=== PATIENT | female | born 1940 | race Caucasian/White ===

== ENCOUNTER 2017-02-22 06:51 | Day surgery (SDC) | payer OTHER ==
[2017-01-04 08:30] VITALS: BMI 23.3
[2017-02-22 07:16] VITALS: TEMP 97
[2017-02-22] MEDS ORDERED: Lidocaine Hydrochloride 5 ML INJ ONE (08:07)
[2017-02-22] MEDS ORDERED: Propofol 10 mg/ml Inj (20 ML) ONE (08:07)
[2017-02-22] MEDS ORDERED: Etomidate 20 mg/10ml Inj IV ONE (08:07)
--- NOTE | 2017-02-22 08:09 | CP.SDSHP ---
Same Day Surgery H & P - History Proposed Procedure: COLONSCOPY Pre-Op Diagnosis: SEE NOTES - Previous Medical/Surgical History Cardiac: Hypertension, ASHD/CAD Endocrine/Metabolic: Diabetes, Other Misc: Other Pain: 4.Moderate Pain - Allergies Allergies: Allergies No Known Allergies Allergy (Verified 02/22/17 07:12) - Physical Exam General Appearance: N Vital Signs: Vital Signs 02/22/17 02/22/17 02/22/17 07:14 07:34 07:58 Temperature 97.0 F L 97.0 F L 97.0 F L Pulse Rate 80 80 80 Respiratory 20 20 20 Rate Blood Pressure 158/76 H 158/76 H 158/76 H O2 Sat by Pulse 98 98 98 Oximetry 02/22/17 08:05 Temperature 97.0 F L Pulse Rate 80 Respiratory 20 Rate Blood Pressure 158/76 H O2 Sat by Pulse 98 Oximetry Mental Status: Alert & Oriented x3 Neuro: WNL Heart: Other Lungs: WNL GI: WNL - {Optional Preform as Required} Breast: WNL Abdomen: Other Rectal: Other Integument: WNL : WNL Ortho: Other ENT: WNL - Impression Pt. Evaluated Today:Candidate for Anesthesia & Procedure: Yes - Date & Time Time: 08:09 Short Stay Discharge - Short Stay Discharge Admitting Diagnosis/Reason for Visit: RECTAL BLEEDING Disposition: HOME/ ROUTINE
[2017-02-22] MEDS ORDERED: Belladonna-Phenobarbital PO STA (08:10)
[2017-02-22] MEDS ORDERED: Phytonadione 10 mg/ml Inj (Adult) SC STA (08:20)
[2017-02-22 08:56] VITALS: O2SAT 100
[2017-02-22 10:16] VITALS: RESP 20
[2017-02-22 14:03] VITALS: BP 144/64; PULSE 89
== END 2017-02-22 09:40 | disposition home or self-care (01) ==
LOC: C.ENDO 06:51
PROVIDERS: ATTEND Specialist
DX: D12.0 Benign neoplasm of cecum (principal); K63.89 Other specified diseases of intestine; K64.4 Residual hemorrhoidal skin tags; K64.8 Other hemorrhoids; K62.5 Hemorrhage of anus and rectum
CPT/HCPCS: 45380; 82948; 88305; J2704; J3430

== ENCOUNTER 2017-06-26 02:08 | Inpatient (IN) | payer OTHER ==
[2017-06-26 02:08] VITALS: BMI 23.3
[2017-06-26] MEDS ORDERED: Albuterol-Ipratrop 3 mg / 0.5 (3 ml) UD ONE (02:21)
[2017-06-26] MEDS ORDERED: Sodium Chloride 0.9% 1,000 ML IV ONE (02:21)
--- NOTE | 2017-06-26 02:24 | C.PDOC ---
History Of Present Illness Patient BIBA for evaluation of chest pain. As per EMS, patient was having chest pain, had syncopal episode when BLS arrived and became diaphoretic and bradycardic. ALS arrived, patient had episode of vomiting, intubated for airway protection (given Versed, Ketamine, Succniylcholine). PMHx of DM, CAD, HTN. Time Seen by Provider: 06/26/17 02:19 Chief Complaint (Nursing): Chest Pain History Per: EMS History/Exam Limitations: clinical condition Onset/Duration Of Symptoms: Unknown Current Symptoms Are (Timing): Still Present Past Medical History Reviewed: Historical Data, Nursing Documentation, Vital Signs Vital Signs: Last Vital Signs Temp 98.1 F 07/01/17 12:00 Pulse 80 07/01/17 17:00 Resp 19 07/01/17 17:00 BP 148/70 07/01/17 16:37 Pulse Ox 99 07/01/17 17:00 - Medical History PMH: Arthritis, HTN, Hypercholesterolemia, Chronic Kidney Disease Family History: States: Other Other Family History: noncontributory Review Of Systems Review Of Systems: ROS cannot be obtained secondary to pt's inabilty to answer questions. Physical Exam - Physical Exam Appears: Non-toxic Skin: Diaphoretic Eye(s): bilateral: Normal Inspection Oral Mucosa: Moist, Other (ET tube in place) Cardiovascular: Rhythm Regular (tachycardic ) Respiratory: No Accessory Muscle Use, Rales (B/L), Rhonchi (B/L), Wheezing ( mild expiratory ), Other (breath sounds equal B/L) Gastrointestinal/Abdominal: Normal Exam, Bowel Sounds, Soft, No Tenderness, Other (obese) Rectal: Rectal Tone, Heme Positive, No Hemorrhoids, No Mass, No Tenderness Extremity: No Pedal Edema, No Calf Tenderness ED Course And Treatment - Laboratory Results Result Diagrams: 07/01/17 06:08 07/01/17 06:10 ECG: Interpreted By Me, Viewed By Me (sinus rhythm 96 bpm, normal axis, PACs, ST depressions V4-V6, T wave inversions I, aVL) ECG Interpretation: Abnormal O2 Sat by Pulse Oximetry: 100 (FiO2 100) Pulse Ox Interpretation: Normal - Radiology CXR: Interpreted by Me, Viewed By Me (pulmonary edema, ET tube in place) Progress Note: Blood work, CXR, EKG, UA ordered and reviewed. IV NS bolus given. Fentanyl drip started for IV sedation (intubated). Central line inserted by me in right femoral vein. IV levophed started due to hypotension. Bicarb amp given IV. No asa/anticoagulation given for elevated troponin due to guaiac + stool and severe anemia. Tranfusion of 2 units PRBCs ordered. 3:35am - Discussed patient with franklin Rush with ICU admission. Dr. Saldaña hospitalist covering operations recruiter, also aware. Pending call from Dr. Arshad ( covers Dr. Brittney De La Cruz), will be telecommunications sales representative as well. 3:52am - Dr. Arshad aware of admission to his service + cardio consult. - Physician Consult Information Physician Contacted: Harriett Arshad Central Line Placement - Central Line Placement Indication: Emergent IV Access Central Line Placement: Right: Femoral The Area Was Thoroughly Prepared With: Chlorhexidine Area Was Locally Anesthetized With: Lidocaine 1% Procedure: Triple Lumen, Placed Using Standard Seldinger Technique, Catheter Was Sewn Into Place, Sterile Dressing Placed Over Line, Procedure Tolerated Well Critical Care Time - Critical Care Note Total Time (in mins): 45 Documented critical care: time excludes all time spent performing seperately billable procedures. Medical Decision Making Medical Decision Making: differential diagnoses considered: MD/ACS, GI bleed - diverticulosis/colon CA/ hemorrhoids/PUD/gastritis/AVM/colitis, CHF exacerbation/pulmonary edema, sepsis , UTI, pneumonia, Disposition - Disposition Disposition: HOSPITALIZED Disposition Time: 03:32 Condition: CRITICAL - Clinical Impression Clinical Impression: Pulmonary edema, Elevated troponin, Anemia, Acidosis, UTI (urinary tract infection), Guaiac positive stools
[2017-06-26 02:28] LABS: ABG MECHANICAL RATE 14; ARTERIAL BLOOD GAS MODE PRVC; ATERIAL BLOOD GAS PEEP 5; VENOUS BLOOD GAS BASE EXCESS -19.1 mmol/L (0.0-2.0); VENOUS BLOOD GAS MODE PRVC; VENOUS BLOOD GAS PCO2 49 mmHg (40-60)
[2017-06-26 02:30] LABS: BASO # 0.2 K/uL (0.0-0.2); BASO % 1.1 % (0.0-2.0); EOS # 0.2 K/uL (0.0-0.7); EOS % 1.1 % (0.0-4.0); HEMATOCRIT 22.9 % (34.0-47.0); LYMPH # 7.8 K/uL (1.0-4.3); LYMPH % 40.2 % (20.0-40.0); MEAN CELL VOLUME 84.5 fL (81.0-99.0); MEAN CORPUSCULAR HGB CONC 28.3 g/dL (33.0-37.0); MEAN PLATELET VOLUME 10.2 fL (7.2-11.7); MONO # 0.6 K/uL (0.0-0.8); MONO % 3.1 % (0.0-10.0); NRBC % 0.2 % (0.0-2.0); RED CELL DISTRIBUTION WIDTH 17.1 % (11.5-14.5); WHITE BLOOD COUNT 19.5 K/uL (4.8-10.8)
[2017-06-26 02:35] LABS: INR 1.1
[2017-06-26 02:37] LABS: POTASSIUM 5.1 mmol/L (3.6-5.2)
[2017-06-26 02:39] LABS: ALB/GLOB RATIO 1.2 (1.0-2.1); BILIRUBIN,TOTAL 0.3 mg/dL (0.2-1.3); CALCIUM 7.6 mg/dl (8.6-10.4); TOTAL PROTEIN 5.9 g/dL (6.3-8.3)
[2017-06-26] MEDS ORDERED: Lidocaine 1% Inj (20ml) ONE (02:52)
[2017-06-26 03:00] LABS: TROPONIN I 0.23 ng/mL (0.00-0.120)
[2017-06-26] MEDS ORDERED: Sodium Bicarbonate (8.4%) 50 Meq Syringe IVP STA (03:33)
[2017-06-26] MEDS ORDERED: Sodium Bicarbonate (8.4%) 50 Meq Syringe ONE (03:43)
[2017-06-26] MEDS ORDERED: (Novolin R) Insulin Human Regular 100 units/ml vial IV ONE (03:45)
[2017-06-26] MEDS ORDERED: (Novolin R) Insulin Human Regular 100 units/ml vial ONE (03:58)
[2017-06-26 03:59] LABS: ABG ALLEN TEST POS; ABG MECHANICAL RATE 14; ARTERIAL BLOOD GAS MODE PRVC; ATERIAL BLOOD GAS PEEP 5; DRAW SITE R RAD
[2017-06-26 04:08] LABS: GRANULAR CAST 19 /lpf (0-1); RBC URINE 5 /hpf (0-3); URINE BACTERIA RARE (<OCC); URINE BILIRUBIN NEGATIVE (NEGATIVE); URINE BLOOD NEGATIVE (NEGATIVE); URINE COLOR Amber (YELLOW); URINE GLUCOSE (UA) 2+ mg/dL (Normal); URINE KETONE NEGATIVE (NEGATIVE); URINE LEUKOCYTE ESTERASE NEG Leu/uL (Negative); URINE PROTEIN 3+ mg/dL (NEGATIVE); URINE UROBILINOGEN NORMAL mg/dL (0.2-1.0); WBC URINE 14 /hpf (0-5)
[2017-06-26] MEDS ORDERED: cefTRIAXone IV 1 gm in Dextros 50 ML IVPB ONE (04:29)
[2017-06-26 08:36] LABS: ABG MECHANICAL RATE 14; ARTERIAL BLOOD GAS MODE PRVC; ATERIAL BLOOD GAS PEEP 5; DRAW SITE RRA
--- NOTE | 2017-06-26 08:46 | RAD ---
HISTORY: intubation COMPARISON: None available. TECHNIQUE: Chest, one view. FINDINGS: Endotracheal tube tip terminates approximately 5.6 cm above the merary. Nasogastric tube extends expected location of the stomach. LUNGS: Moderate interstitial prominence may reflect infection or edema. Please note that chest x-ray has limited sensitivity for the detection of pulmonary masses. PLEURA: No significant pleural effusion identified. No definite pneumothorax . CARDIOVASCULAR: Heart size appears within normal limits. Atherosclerotic calcifications of the aortic knob. OSSEOUS STRUCTURES: Osseous demineralization. Degenerative changes. VISUALIZED UPPER ABDOMEN: Unremarkable. OTHER FINDINGS: None. IMPRESSION: Endotracheal tube tip terminates approximately 5.6 cm above the merary. Nasogastric tube extends expected location of the stomach. Moderate interstitial prominence may reflect infection or edema.
[2017-06-26] MEDS: Piperacill/Tazo 2.25gm in Dex 2.25 GM/50 ML BAG IVPB SCH ×2 (09:47→16:09)
[2017-06-26] MEDS ORDERED: Sodium Chloride 0.9% 500 ML IV ONE (11:47)
[2017-06-26] MEDS: Azithromycin 500 MG in Sodium Chloride 0.9% 250 ML IVPB SCH (12:02)
[2017-06-26 12:45] LABS: POTASSIUM 5.2 mmol/L (3.6-5.2)
[2017-06-26 12:47] LABS: BILIRUBIN,TOTAL 0.7 mg/dL (0.2-1.3)
[2017-06-26 12:48] LABS: ALB/GLOB RATIO 1.1 (1.0-2.1); HEMATOCRIT 28.5 % (34.0-47.0); MEAN CELL VOLUME 84.7 fL (81.0-99.0); MEAN CORPUSCULAR HEMOGLOBIN 26.6 pg (27.0-31.0); MEAN CORPUSCULAR HGB CONC 31.4 g/dL (33.0-37.0); MEAN PLATELET VOLUME 9.6 fL (7.2-11.7); PHOSPHOROUS 3.8 mg/dL (2.5-4.5); RED CELL DISTRIBUTION WIDTH 16.9 % (11.5-14.5); TOTAL PROTEIN 5.4 g/dL (6.3-8.3); WHITE BLOOD COUNT 20.6 K/uL (4.8-10.8)
[2017-06-26 12:49] LABS: MAGNESIUM 1.2 mg/dL (1.6-2.3)
[2017-06-26] MEDS: Magnesium Sulfate 1 gm in D5W 1 GM/100 ML BAG IVPB SCH ×2 (13:45→14:30)
--- NOTE | 2017-06-26 13:53 | CP.PCM.CON ---
History of Present Illness - History of Present Illness History of Present Illness: 77-year-old female with history of coronary artery disease, hypertension who was admitted overnight to intensive care unit after she was intubated in the field for respiratory distress, chest pain, diaphoresis. Patient now intubated on ventilatory support, getting PRBCs for severe anemia Status post EGD and colonoscopy in February of this month complicated by rectal bleeding AND this patient never had follow-up with GI Review of Systems - Review of Systems Systems not reviewed;Unavailable: Intubated Past Patient History - Infectious Disease Hx of Infectious Diseases: None - Past Medical History & Family History Past Medical History?: Yes - Past Social History Smoking Status: Never Smoked - CARDIAC Hx Hypercholesterolemia: Yes Hx Hypertension: Yes - PULMONARY Hx Respiratory Disorders: No - NEUROLOGICAL Hx Neurological Disorder: No - HEENT Hx HEENT Problems: Yes Hx Cataracts: Yes (BIOL) - RENAL Hx Chronic Kidney Disease: Yes - ENDOCRINE/METABOLIC Hx Endocrine Disorders: Yes Hx Diabetes Mellitus Type 2: Yes - HEMATOLOGICAL/ONCOLOGICAL Hx Blood Disorders: No Hx Blood Transfusions: No - INTEGUMENTARY Hx Dermatological Problems: No - MUSCULOSKELETAL/RHEUMATOLOGICAL Hx Falls: No - GASTROINTESTINAL Hx Gastrointestinal Disorders: No - GENITOURINARY/GYNECOLOGICAL Hx Genitourinary Disorders: No - PSYCHIATRIC Hx Substance Use: No - SURGICAL HISTORY Hx Surgeries: Yes Hx Cataract Extraction: Yes (BIOL) - ANESTHESIA Hx Anesthesia: Yes Hx Anesthesia Reactions: No Hx Malignant Hyperthermia: No Meds Allergies/Adverse Reactions: Allergies Allergy/AdvReac Type Severity Reaction Status Date / Time No Known Allergies Allergy Verified 06/26/17 02:25 - Medications Medications: Current Medications Famotidine (Pepcid) 20 mg IVP DAILY [facility] Last Admin: 06/26/17 09:46 Dose: 20 mg Fentanyl Citrate 2,500 mcg/ (Sodium Chloride) 250 mls @ 5.39 mls/hr IV .Q24H [facility]; 0.7 MCG/KG/HR PRN Reason: Protocol Last Titration: 06/26/17 07:00 Dose: 0.99 mcg/kg/hr, 7.7 mls/hr Norepinephrine Bitartrate 4 mg (/ Sodium Chloride) 254 mls @ 15.24 mls/hr IV .[id number] STA; 4 MCG/MIN PRN Reason: Protocol Stop: 06/26/17 19:50 Last Titration: 06/26/17 13:00 Dose: 4.93 mcg/min, 18.8 mls/hr Piperacillin Sod/Tazobactam Sod (Zosyn 2.25 Gm Iv Premix) 2.25 gm in 50 mls @ 100 mls/hr IVPB Q8H [facility] Last Admin: 06/26/17 09:47 Dose: 100 mls/hr Azithromycin 500 mg/ Sodium (Chloride) 250 mls @ 250 mls/hr IVPB DAILY [facility] Last Admin: 06/26/17 12:02 Dose: 250 mls/hr Magnesium Sulfate/Dextrose (Magnesium Sulfate 1 Gm/100 Ml D5w) 1 gm in 100 mls @ 200 mls/hr IVPB Q30M [facility] Stop: 06/26/17 14:29 Last Admin: 06/26/17 13:45 Dose: 200 mls/hr Physical Exam - Head Exam Head Exam: ATRAUMATIC, NORMOCEPHALIC - ENT Exam ENT Exam: Mucous Membranes Moist - Neck Exam Neck exam: Positive for: Normal Inspection - Respiratory Exam Respiratory Exam: Decreased Breath Sounds - Cardiovascular Exam Cardiovascular Exam: REGULAR RHYTHM - GI/Abdominal Exam GI & Abdominal Exam: Normal Bowel Sounds - Extremities Exam Extremities exam: Positive for: normal inspection - Neurological Exam Neurological exam: Altered Results - Vital Signs Recent Vital Signs: Last Vital Signs Temp 98.4 F 06/26/17 10:32 Pulse 82 06/26/17 13:30 Resp 20 06/26/17 13:30 BP 83/47 L 06/26/17 13:05 Pulse Ox 100 06/26/17 13:30 - Labs Result Diagrams: 06/26/17 12:29 06/26/17 12:29 Labs: Laboratory Results - last 24 hr 06/26/17 06/26/17 06/26/17 03:51 03:53 03:55 WBC RBC Hgb Hct MCV MCH MCHC RDW Plt Count MPV Puncture Site R rad pCO2 38 pO2 213 H HCO3 14.8 L ABG pH 7.19 L* ABG Total CO2 15.7 L ABG O2 Saturation 100.5 H ABG Base Excess -13.0 L Jasvir Test Pos ABG Potassium 5.7 H A-a O2 Difference 453.0 Respiratory Index 2.1 Sodium 139.0 Chloride 116.0 H Glucose 283 H Lactate 2.3 H Vent Mode Prvc Mechanical Rate 14 FiO2 100.0 Tidal Volume 500 PEEP 5 Crit Value Called To Dr hernandez Crit Value Called By Darlene varner rt Crit Value Read Back Y Blood Gas Notified Time 400 Potassium Carbon Dioxide Anion Gap BUN Creatinine Est GFR ( Amer) Est GFR (Non-Af Amer) POC Glucose (mg/dL) Random Glucose Calcium Phosphorus Magnesium Total Bilirubin AST ALT Alkaline Phosphatase Total Creatine Kinase CK-MB (Mass) Troponin I, Quant Total Protein Albumin Globulin Albumin/Globulin Ratio Arterial Blood Potassium 5.7 H Urine Color Susan Urine Clarity Hazy Urine pH 5.0 Ur Specific [place] 1.016 Urine Protein 3+ H Urine Glucose (UA) 2+ H Urine Ketones Negative Urine Blood Negative Urine Nitrate Negative Urine Bilirubin Negative Urine Urobilinogen Normal Ur Leukocyte Esterase Neg Urine WBC (Auto) 14 H Urine RBC (Auto) 5 H Ur Squamous Epith Cells 1 Amorphous Sediment Few H Urine Bacteria Rare Granular Casts (Auto) 19 Blood Type Confirm A POSITIVE 06/26/17 06/26/17 06/26/17 07:28 08:33 11:48 WBC RBC Hgb Hct MCV MCH MCHC RDW Plt Count MPV Puncture Site Rra pCO2 42 pO2 182 H HCO3 18.4 L ABG pH 7.25 L ABG Total CO2 19.7 L ABG O2 Saturation 100.0 H ABG Base Excess -8.5 L Jasvir Test Na ABG Potassium 5.9 H A-a O2 Difference 265.0 Respiratory Index 1.5 Sodium 141.0 Chloride 114.0 H Glucose 242 H Lactate 1.1 Vent Mode Prvc Mechanical Rate 14 FiO2 70.0 Tidal Volume 500 PEEP 5 Crit Value Called To Crit Value Called By Crit Value Read Back Blood Gas Notified Time Potassium Carbon Dioxide Anion Gap BUN Creatinine Est GFR ( Amer) Est GFR (Non-Af Amer) POC Glucose (mg/dL) 253 H 267 H Random Glucose Calcium Phosphorus Magnesium Total Bilirubin AST ALT Alkaline Phosphatase Total Creatine Kinase CK-MB (Mass) Troponin I, Quant Total Protein Albumin Globulin Albumin/Globulin Ratio Arterial Blood Potassium 5.9 H Urine Color Urine Clarity Urine pH Ur Specific [place] Urine Protein Urine Glucose (UA) Urine Ketones Urine Blood Urine Nitrate Urine Bilirubin Urine Urobilinogen Ur Leukocyte Esterase Urine WBC (Auto) Urine RBC (Auto) Ur Squamous Epith Cells Amorphous Sediment Urine Bacteria Granular Casts (Auto) Blood Type Confirm 06/26/17 06/26/17 06/26/17 12:29 12:29 12:29 WBC 20.6 H RBC 3.37 L Hgb 8.9 L D Hct 28.5 L MCV 84.7 MCH 26.6 L MCHC 31.4 L RDW 16.9 H Plt Count 188 MPV 9.6 Puncture Site pCO2 pO2 HCO3 ABG pH ABG Total CO2 ABG O2 Saturation ABG Base Excess Jasvir Test ABG Potassium A-a O2 Difference Respiratory Index Sodium 141 Chloride 113 H Glucose Lactate Vent Mode Mechanical Rate FiO2 Tidal Volume PEEP Crit Value Called To Crit Value Called By Crit Value Read Back Blood Gas Notified Time Potassium 5.2 Carbon Dioxide 16 L Anion Gap 17 BUN 31 H Creatinine 2.1 H Est GFR ( Amer) 28 Est GFR (Non-Af Amer) 23 POC Glucose (mg/dL) Random Glucose 214 H Calcium 7.0 L Phosphorus 3.8 Magnesium 1.2 L Total Bilirubin 0.7 AST 47 H ALT 49 Alkaline Phosphatase 56 Total Creatine Kinase 238 H CK-MB (Mass) 7.40 H Troponin I, Quant 3.1100 H* Total Protein 5.4 L Albumin 2.9 L Globulin 2.5 Albumin/Globulin Ratio 1.1 Arterial Blood Potassium Urine Color Urine Clarity Urine pH Ur Specific [place] Urine Protein Urine Glucose (UA) Urine Ketones Urine Blood Urine Nitrate Urine Bilirubin Urine Urobilinogen Ur Leukocyte Esterase Urine WBC (Auto) Urine RBC (Auto) Ur Squamous Epith Cells Amorphous Sediment Urine Bacteria Granular Casts (Auto) Blood Type Confirm Assessment & Plan (1) Acute respiratory failure with hypoxemia Status: Acute Comment: Secondary to pulmonary edema. Rule out non-ST elevation OK. No anticoagulation because of GI bleed. Transfuse packed RBCs. Continue vent support. Echocardiogram (2) Anemia Status: Acute (3) Elevated troponin Status: Acute
--- NOTE | 2017-06-26 15:29 | CP.PCM.HP ---
Present on Admission - Present on Admission Any Indicators Present on Admission: No Past Patient History - Infectious Disease Hx of Infectious Diseases: None - Past Medical History & Family History Past Medical History?: Yes - Past Social History Smoking Status: Never Smoked - CARDIAC Hx Hypercholesterolemia: Yes Hx Hypertension: Yes - PULMONARY Hx Respiratory Disorders: No - NEUROLOGICAL Hx Neurological Disorder: No - HEENT Hx HEENT Problems: Yes Hx Cataracts: Yes (BIOL) - RENAL Hx Chronic Kidney Disease: Yes - ENDOCRINE/METABOLIC Hx Endocrine Disorders: Yes Hx Diabetes Mellitus Type 2: Yes - HEMATOLOGICAL/ONCOLOGICAL Hx Blood Disorders: No Hx Blood Transfusions: No - INTEGUMENTARY Hx Dermatological Problems: No - MUSCULOSKELETAL/RHEUMATOLOGICAL Hx Falls: No - GASTROINTESTINAL Hx Gastrointestinal Disorders: No - GENITOURINARY/GYNECOLOGICAL Hx Genitourinary Disorders: No - PSYCHIATRIC Hx Substance Use: No - SURGICAL HISTORY Hx Surgeries: Yes Hx Cataract Extraction: Yes (BIOL) - ANESTHESIA Hx Anesthesia: Yes Hx Anesthesia Reactions: No Hx Malignant Hyperthermia: No Meds Allergies/Adverse Reactions: Allergies Allergy/AdvReac Type Severity Reaction Status Date / Time No Known Allergies Allergy Verified 06/26/17 02:25 Results - Vital Signs Recent Vital Signs: Last Vital Signs Temp 98.4 F 06/26/17 10:32 Pulse 77 06/26/17 14:39 Resp 20 06/26/17 14:39 BP 102/48 L 06/26/17 14:39 Pulse Ox 99 06/26/17 14:39 - Labs Result Diagrams: 06/26/17 12:29 06/26/17 12:29 Labs: Laboratory Results - last 24 hr 06/26/17 06/26/17 06/26/17 03:51 03:53 03:55 WBC RBC Hgb Hct MCV MCH MCHC RDW Plt Count MPV Puncture Site R rad pCO2 38 pO2 213 H HCO3 14.8 L ABG pH 7.19 L* ABG Total CO2 15.7 L ABG O2 Saturation 100.5 H ABG Base Excess -13.0 L Jasvir Test Pos ABG Potassium 5.7 H A-a O2 Difference 453.0 Respiratory Index 2.1 Sodium 139.0 Chloride 116.0 H Glucose 283 H Lactate 2.3 H Vent Mode Prvc Mechanical Rate 14 FiO2 100.0 Tidal Volume 500 PEEP 5 Crit Value Called To Dr hernandez Crit Value Called By Darlene varner rt Crit Value Read Back Y Blood Gas Notified Time 400 Potassium Carbon Dioxide Anion Gap BUN Creatinine Est GFR ( Amer) Est GFR (Non-Af Amer) POC Glucose (mg/dL) Random Glucose Calcium Phosphorus Magnesium Total Bilirubin AST ALT Alkaline Phosphatase Total Creatine Kinase CK-MB (Mass) Troponin I, Quant Total Protein Albumin Globulin Albumin/Globulin Ratio Arterial Blood Potassium 5.7 H Urine Color Susan Urine Clarity Hazy Urine pH 5.0 Ur Specific [place] 1.016 Urine Protein 3+ H Urine Glucose (UA) 2+ H Urine Ketones Negative Urine Blood Negative Urine Nitrate Negative Urine Bilirubin Negative Urine Urobilinogen Normal Ur Leukocyte Esterase Neg Urine WBC (Auto) 14 H Urine RBC (Auto) 5 H Ur Squamous Epith Cells 1 Amorphous Sediment Few H Urine Bacteria Rare Granular Casts (Auto) 19 Blood Type Confirm A POSITIVE 06/26/17 06/26/17 06/26/17 07:28 08:33 11:48 WBC RBC Hgb Hct MCV MCH MCHC RDW Plt Count MPV Puncture Site Rra pCO2 42 pO2 182 H HCO3 18.4 L ABG pH 7.25 L ABG Total CO2 19.7 L ABG O2 Saturation 100.0 H ABG Base Excess -8.5 L Jasvir Test Na ABG Potassium 5.9 H A-a O2 Difference 265.0 Respiratory Index 1.5 Sodium 141.0 Chloride 114.0 H Glucose 242 H Lactate 1.1 Vent Mode Prvc Mechanical Rate 14 FiO2 70.0 Tidal Volume 500 PEEP 5 Crit Value Called To Crit Value Called By Crit Value Read Back Blood Gas Notified Time Potassium Carbon Dioxide Anion Gap BUN Creatinine Est GFR ( Amer) Est GFR (Non-Af Amer) POC Glucose (mg/dL) 253 H 267 H Random Glucose Calcium Phosphorus Magnesium Total Bilirubin AST ALT Alkaline Phosphatase Total Creatine Kinase CK-MB (Mass) Troponin I, Quant Total Protein Albumin Globulin Albumin/Globulin Ratio Arterial Blood Potassium 5.9 H Urine Color Urine Clarity Urine pH Ur Specific [place] Urine Protein Urine Glucose (UA) Urine Ketones Urine Blood Urine Nitrate Urine Bilirubin Urine Urobilinogen Ur Leukocyte Esterase Urine WBC (Auto) Urine RBC (Auto) Ur Squamous Epith Cells Amorphous Sediment Urine Bacteria Granular Casts (Auto) Blood Type Confirm 06/26/17 06/26/17 06/26/17 12:29 12:29 12:29 WBC 20.6 H RBC 3.37 L Hgb 8.9 L D Hct 28.5 L MCV 84.7 MCH 26.6 L MCHC 31.4 L RDW 16.9 H Plt Count 188 MPV 9.6 Puncture Site pCO2 pO2 HCO3 ABG pH ABG Total CO2 ABG O2 Saturation ABG Base Excess Jasvir Test ABG Potassium A-a O2 Difference Respiratory Index Sodium 141 Chloride 113 H Glucose Lactate Vent Mode Mechanical Rate FiO2 Tidal Volume PEEP Crit Value Called To Crit Value Called By Crit Value Read Back Blood Gas Notified Time Potassium 5.2 Carbon Dioxide 16 L Anion Gap 17 BUN 31 H Creatinine 2.1 H Est GFR ( Amer) 28 Est GFR (Non-Af Amer) 23 POC Glucose (mg/dL) Random Glucose 214 H Calcium 7.0 L Phosphorus 3.8 Magnesium 1.2 L Total Bilirubin 0.7 AST 47 H ALT 49 Alkaline Phosphatase 56 Total Creatine Kinase 238 H CK-MB (Mass) 7.40 H Troponin I, Quant 3.1100 H* Total Protein 5.4 L Albumin 2.9 L Globulin 2.5 Albumin/Globulin Ratio 1.1 Arterial Blood Potassium Urine Color Urine Clarity Urine pH Ur Specific [place] Urine Protein Urine Glucose (UA) Urine Ketones Urine Blood Urine Nitrate Urine Bilirubin Urine Urobilinogen Ur Leukocyte Esterase Urine WBC (Auto) Urine RBC (Auto) Ur Squamous Epith Cells Amorphous Sediment Urine Bacteria Granular Casts (Auto) Blood Type Confirm
[2017-06-26] MEDS: Sodium Chloride 0.9% 1,000 ML IV SCH (17:00)
[2017-06-27] MEDS: Piperacill/Tazo 2.25gm in Dex 2.25 GM/50 ML BAG IVPB SCH ×3 (01:50→17:26)
[2017-06-27 06:08] LABS: ABG ALLEN TEST POS; ABG MECHANICAL RATE 20; ARTERIAL BLOOD GAS MODE PRVC; ARTERIAL BLOOD HGB O2 SAT 96.5 % (95.0-98.0); ATERIAL BLOOD GAS PEEP 5; CARBOXYHEMOGLOBIN 1.7 % (0.5-1.5); DRAW SITE RR; HHB 0.6 % (0.0-5.0); METHEMOGLOBIN 1.1 % (0.0-3.0)
[2017-06-27 06:20] LABS: BASO % 0.2 % (0.0-2.0); EOS % 0.1 % (0.0-4.0); HEMATOCRIT 27.1 % (34.0-47.0); LYMPH # 3.3 K/uL (1.0-4.3); LYMPH % 18.6 % (20.0-40.0); MEAN CELL VOLUME 83.6 fL (81.0-99.0); MEAN CORPUSCULAR HGB CONC 31.2 g/dL (33.0-37.0); MEAN PLATELET VOLUME 9.8 fL (7.2-11.7); MONO # 1.1 K/uL (0.0-0.8); MONO % 6.4 % (0.0-10.0); RED CELL DISTRIBUTION WIDTH 17.3 % (11.5-14.5); WHITE BLOOD COUNT 17.7 K/uL (4.8-10.8)
[2017-06-27 06:29] LABS: CHLORIDE 113 mmol/L (98-107)
[2017-06-27 06:30] LABS: POTASSIUM 4.5 mmol/L (3.6-5.2); SODIUM 141 mmol/L (132-148)
[2017-06-27 06:32] LABS: GFR AFRICAN-AMERICAN 24
[2017-06-27 06:33] LABS: ALB/GLOB RATIO 1.1 (1.0-2.1); ALKALINE PHOSPHATASE 51 U/L (38-126); ALT/SGPT 46 U/L (9-52); AST/SGOT 42 U/L (14-36); BILIRUBIN,TOTAL 0.6 mg/dL (0.2-1.3); BLOOD UREA NITROGEN 35 mg/dL (7-17); CALCIUM 7.5 mg/dl (8.6-10.4); CARBON DIOXIDE 17 mmol/L (22-30); GLUCOSE,RANDOM 175 mg/dL (65-105); MAGNESIUM 1.9 mg/dL (1.6-2.3); PHOSPHOROUS 3.5 mg/dL (2.5-4.5); TOTAL PROTEIN 5.2 g/dL (6.3-8.3)
[2017-06-27] MEDS: Sodium Chloride 0.9% 1,000 ML IV SCH (06:35)
[2017-06-27 07:04] LABS: CARCINOEMBRYONIC ANTIGEN 0.5 ng/mL (0-3.0)
[2017-06-27] MEDS: Azithromycin 500 MG in Sodium Chloride 0.9% 250 ML IVPB SCH (10:03)
--- NOTE | 2017-06-27 13:02 | RAD ---
HISTORY: follow up chf COMPARISON: Chest x-ray performed 06/26/17 TECHNIQUE: Chest, one view. FINDINGS: Endotracheal tube terminates approximately 3.4 cm above the merary. Nasogastric tube extends expected location of the stomach. LUNGS: Mild interval decrease in persistent interstitial prominence which may reflect infection or edema. Bilateral hilar prominence may reflect central vascular congestion. PLEURA: No significant pleural effusion identified. No definite pneumothorax . CARDIOVASCULAR: Cardiomegaly. Atherosclerotic calcifications. OSSEOUS STRUCTURES: Osseous demineralization. Degenerative changes. VISUALIZED UPPER ABDOMEN: Unremarkable. OTHER FINDINGS: None. IMPRESSION: Endotracheal tube terminates approximately 3.4 cm above the merary. Nasogastric tube extends expected location of the stomach. Mild interval decrease in persistent interstitial prominence which may reflect infection or edema. Bilateral hilar prominence may reflect central vascular congestion.
[2017-06-27] MEDS: Vancomycin 1 gm/NS 200 ml 1 GM/200 ML BAG IVPB SCH (13:06)
--- NOTE | 2017-06-27 13:58 | CP.PCM.PN ---
Subjective - Date & Time of Evaluation Date of Evaluation: 06/27/17 Time of Evaluation: 13:57 - Subjective Subjective: STILL ON VENT AND LEVOPHED TNI ARE POS ACTIVE GI BLEEDING CHECK ECHO Objective - Vital Signs/Intake and Output Vital Signs (last 24 hours): Temp Pulse Resp BP Pulse Ox 98.3 F 90 20 108/63 96 06/27/17 08:00 06/27/17 11:01 06/27/17 11:01 06/27/17 11:01 06/27/17 11:01 Intake and Output: 06/27/17 06/27/17 11:59 23:59 Intake Total 1232.9 Output Total 265 Balance 967.9 - Medications Medications: Current Medications Famotidine (Pepcid) 20 mg IVP DAILY [facility] Last Admin: 06/27/17 10:02 Dose: 20 mg Fentanyl Citrate 2,500 mcg/ (Sodium Chloride) 250 mls @ 5.39 mls/hr IV .Q24H [facility]; 0.7 MCG/KG/HR PRN Reason: Protocol Last Titration: 06/27/17 10:15 Dose: 1 mcg/kg/hr, 7.71 mls/hr Piperacillin Sod/Tazobactam Sod (Zosyn 2.25 Gm Iv Premix) 2.25 gm in 50 mls @ 100 mls/hr IVPB Q8H [facility] Last Admin: 06/27/17 09:07 Dose: 100 mls/hr Azithromycin 500 mg/ Sodium (Chloride) 250 mls @ 250 mls/hr IVPB DAILY [facility] Last Admin: 06/27/17 10:03 Dose: 250 mls/hr Norepinephrine Bitartrate 4 mg (/ Sodium Chloride) 250 mls @ 18.75 mls/hr IV .[id number] PRN; Protocol; 5 MCG/MIN PRN Reason: TITRATE PER MD ORDER Last Titration: 06/27/17 06:00 Dose: 0 mcg/min, 0 mls/hr Vancomycin/Sodium Chloride (Vancocin) 1 gm in 200 mls @ 133.333 mls/hr IVPB Q24H [facility] Last Admin: 06/27/17 13:06 Dose: 133.333 mls/hr Insulin Human Regular (Novolin R) 0 unit SC Q6 [facility] PRN Reason: Protocol - Labs Labs: 06/27/17 06:14 06/27/17 06:14 PT 11.9 SECONDS (9.7-12.2) 06/26/17 02:25 INR 1.1 06/26/17 02:25 APTT 23 SECONDS (21-34) 06/26/17 02:25
[2017-06-27] MEDS ORDERED: (Novolin R) Insulin Human Regular 100 units/ml vial SC SCH (16:30)
--- NOTE | 2017-06-27 18:08 | CARD ---
APPROVED REPORT EXAM: Two-dimensional and M-mode echocardiogram with Doppler and color Doppler. Other Information Quality : GoodRhythm : INDICATION Non STEMI HIGH TROPONIN RISK FACTORS Hyperlipidemia 2D DIMENSIONS IVSd1.0 (0.7-1.1cm)LVDd5.0 (3.9-5.9cm) PWd1.0 (0.7-1.1cm)LVDs4.2 (2.5-4.0cm) FS (%) 15.7 %LVEF (%)35.0 (>50%) M-Mode DIMENSIONS Left Atrium (MM)4.44 (2.5-4.0cm)Aortic Root2.55 (2.2-3.7cm) Aortic Cusp Exc.1.77 (1.5-2.0cm) Mitral Valve MV E Kohrdcit363.0cm/sMV A Vgnvczml855.6cm/sE/A ratio1.1 TDI E/Lateral E'0.0E/Medial E'0.0 Tricuspid Valve TR Peak Fosiwcou305ou/sTR Peak Gr.[id number] LEFT VENTRICLE The Left Ventricle is moderately dilated. There is normal left ventricular wall thickness. Left ventricle systolic function is moderately impaired. The Ejection Fraction is - 35%. There is mild hypokinesis in the posterior wall. Probable Grade II-pseudonormal diastolic dysfunction. Elevated left atrial pressure by Tissue Doppler. RIGHT VENTRICLE The right ventricle is normal size. The right ventricular systolic function is normal. ATRIA The left atrium is moderately dilated. The right atrium size is normal. AORTIC VALVE The aortic valve is mildly sclerotic with normal systolic excursion. There is trace aortic regurgitation. MITRAL VALVE Mitral annular calcification is mild. The mitral valve leaflets are grossly normal. Mild to moderate eccentric mitral regurgitation with jet directed laterally. TRICUSPID VALVE The tricuspid valve is normal in structure. There is mild tricuspid regurgitation. PULMONIC VALVE There is no pulmonic valvular regurgitation. There is mild pulmonic valvular regurgitation. GREAT VESSELS The aortic root displays moderate sclerocalcific changes. The IVC is plethoric. PERICARDIAL EFFUSION There is no pericardial effusion. <Conclusion> Left ventricle systolic function is moderately impaired. The Ejection Fraction is - 35%. There is mild hypokinesis in the posterior wall. Probable Grade II-pseudonormal diastolic dysfunction. Elevated left atrial pressure by Tissue Doppler. The left atrium is moderately dilated. The right ventricular systolic function is normal. There is trace aortic regurgitation. The aortic valve is mildly sclerotic with normal systolic excursion. Mild to moderate eccentric mitral regurgitation with jet directed laterally. There is mild tricuspid regurgitation. The aortic root displays moderate sclerocalcific changes. There is no pericardial effusion.
[2017-06-27] MEDS: (Novolin R) Insulin Human Regular 100 units/ml vial SC SCH (18:29)
--- NOTE | 2017-06-27 22:19 | CP.CCUPN ---
<Eliza Coreas - Last Filed: 06/27/17 22:05> CCU Subjective - Physician Review Subjective (Free Text): Patient was seen and examined at bedside in the morning. Patient is intubated. Unable to obtain review of systems. 06/27/17 22:05 CCU Objective - Vital Signs / Intake & Output Vital Signs (Last 4 hours): Vital Signs Pulse Resp BP Pulse Ox 06/27/17 19:02 91 H 11 L 135/55 L 97 06/27/17 19:00 93 H 8 L 97 Intake and Output (Last 8hrs): Intake & Output 06/27/17 06/27/17 06/27/17 06:59 14:59 22:59 Intake Total 1037.9 504.7 46.2 Output Total 190 100 Balance 847.9 404.7 46.2 Intake: IV 296 0 Intake, IV Amount 741.9 504.7 46.2 Right Distal Port Femoral 520 420 Right Medial Port Femoral 169.4 84.7 46.2 Right Proximal Port 52.5 Femoral Oral 0 0 Output: Urine 190 100 Urethral (Neff) 190 100 Other: # Voids Urethral (Neff) 25 20 - Physical Exam Head: Positive for: Atraumatic, Normocephalic Extroacular Muscles: Positive for: EOMI Mouth: Positive for: Moist Mucous Membranes Respiratory/Chest: Positive for: Clear to Auscultation. Negative for: Wheezes, Rales, Rhonchi Cardiovascular: Positive for: Regular Rate and Rhythm, Normal S1, S2. Negative for: Tachycardic, Bradycardic Abdomen: Positive for: Normal Bowel Sounds. Negative for: Tenderness, Distention Upper Extremity: Positive for: Normal Inspection. Negative for: Edema Lower Extremity: Positive for: Normal Inspection. Negative for: Edema Skin: Positive for: Warm, Dry, Normal Color Psychiatric: Positive for: Alert, Agitated - Medications Active Medications: Active Medications Generic Name Dose Route Start Last Admin Trade Name Freq PRN Reason Stop Dose Admin Famotidine 20 mg 06/26/17 10:00 06/27/17 10:02 Pepcid IVP 20 mg DAILY ASIM Administration Fentanyl Citrate 2,500 mcg/ 250 mls @ 5.39 mls/hr 06/26/17 03:15 06/27/17 10: 15 Sodium Chloride IV 1 mcg/kg/hr .Q24H ASIM 7.71 mls/hr Protocol Titration 0.7 MCG/KG/HR Piperacillin Sod/Tazobactam Sod 2.25 gm in 50 mls @ 100 mls/hr 06/26/17 09:00 06/27/17 17:26 Zosyn 2.25 Gm Iv Premix IVPB 100 mls/hr Q8H ASIM Administration Azithromycin 500 mg/ Sodium 250 mls @ 250 mls/hr 06/26/17 10:00 06/27/17 10: 03 Chloride IVPB 250 mls/hr DAILY ASIM Administration Norepinephrine Bitartrate 4 mg 250 mls @ 18.75 mls/hr 06/26/17 20:23 06:00 / Sodium Chloride IV 0 mcg/min .[id number] PRN 0 mls/hr TITRATE PER MD ORDER Titration Protocol 5 MCG/MIN Vancomycin/Sodium Chloride 1 gm in 200 mls @ 133.333 mls/hr 06/27/17 12:00 13:06 Vancocin IVPB 133.333 mls/hr Q24H ASIM Administration Insulin Human Regular 0 unit 06/27/17 13:02 06/27/17 18:29 Novolin R SC 3 unit Q6 ASIM Administration Protocol Midazolam HCl 1 mg 06/27/17 18:43 Versed Inj IVP Q2H PRN Agitation - Patient Studies Lab Studies: Microbiology Studies 06/26/17 06:41 MRSA Culture (Admit) - Final Naris MRSA NOT DETECTED Lab Studies 06/27/17 06/27/17 06/27/17 Range/Units 17:42 12:07 06:14 WBC 17.7 H (4.8-10.8) K/uL RBC 3.25 L (3.80-5.20) Mil/uL Hgb 8.5 L (11.0-16.0) g/dL Hct 27.1 L (34.0-47.0) % MCV 83.6 (81.0-99.0) fL MCH 26.0 L (27.0-31.0) pg MCHC 31.2 L (33.0-37.0) g/dL RDW 17.3 H (11.5-14.5) % Plt Count 154 (130-400) K/uL MPV 9.8 (7.2-11.7) fL Neut % (Auto) 74.7 (50.0-75.0) % Lymph % (Auto) 18.6 L (20.0-40.0) % [place] % (Auto) 6.4 (0.0-10.0) % Eos % (Auto) 0.1 (0.0-4.0) % Baso % (Auto) 0.2 (0.0-2.0) % Neut # 13.2 H (1.8-7.0) K/uL Lymph # 3.3 (1.0-4.3) K/uL [place] # 1.1 H (0.0-0.8) K/uL Eos # 0.0 (0.0-0.7) K/uL Baso # 0.0 (0.0-0.2) K/uL Puncture Site pCO2 (35-45) mm/Hg pO2 (80-100) mm/Hg HCO3 (21-28) mmol/L ABG pH (7.35-7.45) ABG Total CO2 (22-28) mmol/L ABG O2 Saturation (95-98) % ABG Base Excess (-2.0-3.0) mmol/L ABG Hemoglobin (11.7-17.4) g/dL ABG Carboxyhemoglobin (0.5-1.5) % POC ABG HHb (Measured) (0.0-5.0) % ABG Methemoglobin (0.0-3.0) % Jasvir Test A-a O2 Difference mm/Hg Respiratory Index Hgb O2 Saturation (95.0-98.0) % Vent Mode Mechanical Rate FiO2 % Tidal Volume PEEP Sodium (132-148) mmol/L Potassium (3.6-5.2) mmol/L Chloride (98-107) mmol/L Carbon Dioxide (22-30) mmol/L Anion Gap (10-20) BUN (7-17) mg/dL Creatinine (0.7-1.2) MG/DL Est GFR ( Amer) Est GFR (Non-Af Amer) POC Glucose (mg/dL) 225 H 232 H (65-110) mg/dL Random Glucose (65-105) mg/dL Calcium (8.6-10.4) mg/dl Phosphorus (2.5-4.5) mg/dL Magnesium (1.6-2.3) mg/dL Total Bilirubin (0.2-1.3) mg/dL AST (14-36) U/L ALT (9-52) U/L Alkaline Phosphatase (38-126) U/L Troponin I (0.00-0.120) ng/mL Total Protein (6.3-8.3) g/dL Albumin (3.5-5.0) g/dL Globulin (2.2-3.9) gm/dL Albumin/Globulin Ratio (1.0-2.1) Carcinoembryonic Ag (0-3.0) ng/mL CA 125 Antigen (0-35) U/mL 06/27/17 06/27/17 06/27/17 Range/Units 06:14 05:59 05:28 WBC (4.8-10.8) K/uL RBC (3.80-5.20) Mil/uL Hgb (11.0-16.0) g/dL Hct (34.0-47.0) % MCV (81.0-99.0) fL MCH (27.0-31.0) pg MCHC (33.0-37.0) g/dL RDW (11.5-14.5) % Plt Count (130-400) K/uL MPV (7.2-11.7) fL Neut % (Auto) (50.0-75.0) % Lymph % (Auto) (20.0-40.0) % [place] % (Auto) (0.0-10.0) % Eos % (Auto) (0.0-4.0) % Baso % (Auto) (0.0-2.0) % Neut # (1.8-7.0) K/uL Lymph # (1.0-4.3) K/uL [place] # (0.0-0.8) K/uL Eos # (0.0-0.7) K/uL Baso # (0.0-0.2) K/uL Puncture Site Rr pCO2 26 L (35-45) mm/Hg pO2 85 (80-100) mm/Hg HCO3 17.8 L (21-28) mmol/L ABG pH 7.37 (7.35-7.45) ABG Total CO2 15.8 L (22-28) mmol/L ABG O2 Saturation 99.4 H (95-98) % ABG Base Excess -9.2 L (-2.0-3.0) mmol/L ABG Hemoglobin 8.3 L (11.7-17.4) g/dL ABG Carboxyhemoglobin 1.7 H (0.5-1.5) % POC ABG HHb (Measured) 0.6 (0.0-5.0) % ABG Methemoglobin 1.1 (0.0-3.0) % Jasvir Test Pos A-a O2 Difference 239.0 mm/Hg Respiratory Index 2.8 Hgb O2 Saturation 96.5 (95.0-98.0) % Vent Mode Prvc Mechanical Rate 20 FiO2 50.0 % Tidal Volume 500 PEEP 5 Sodium 141 (132-148) mmol/L Potassium 4.5 (3.6-5.2) mmol/L Chloride 113 H (98-107) mmol/L Carbon Dioxide 17 L (22-30) mmol/L Anion Gap 16 (10-20) BUN 35 H (7-17) mg/dL Creatinine 2.4 H (0.7-1.2) MG/DL Est GFR ( Amer) 24 Est GFR (Non-Af Amer) 20 POC Glucose (mg/dL) 202 H (65-110) mg/dL Random Glucose 175 H (65-105) mg/dL Calcium 7.5 L (8.6-10.4) mg/dl Phosphorus 3.5 (2.5-4.5) mg/dL Magnesium 1.9 (1.6-2.3) mg/dL Total Bilirubin 0.6 (0.2-1.3) mg/dL AST 42 H (14-36) U/L ALT 46 (9-52) U/L Alkaline Phosphatase 51 (38-126) U/L Troponin I 2.8400 H* (0.00-0.120) ng/mL Total Protein 5.2 L (6.3-8.3) g/dL Albumin 2.7 L (3.5-5.0) g/dL Globulin 2.5 (2.2-3.9) gm/dL Albumin/Globulin Ratio 1.1 (1.0-2.1) Carcinoembryonic Ag 0.5 (0-3.0) ng/mL CA 125 Antigen < 5.5 (0-35) U/mL 06/26/17 Range/Units 23:47 WBC (4.8-10.8) K/uL RBC (3.80-5.20) Mil/uL Hgb (11.0-16.0) g/dL Hct (34.0-47.0) % MCV (81.0-99.0) fL MCH (27.0-31.0) pg MCHC (33.0-37.0) g/dL RDW (11.5-14.5) % Plt Count (130-400) K/uL MPV (7.2-11.7) fL Neut % (Auto) (50.0-75.0) % Lymph % (Auto) (20.0-40.0) % [place] % (Auto) (0.0-10.0) % Eos % (Auto) (0.0-4.0) % Baso % (Auto) (0.0-2.0) % Neut # (1.8-7.0) K/uL Lymph # (1.0-4.3) K/uL [place] # (0.0-0.8) K/uL Eos # (0.0-0.7) K/uL Baso # (0.0-0.2) K/uL Puncture Site pCO2 (35-45) mm/Hg pO2 (80-100) mm/Hg HCO3 (21-28) mmol/L ABG pH (7.35-7.45) ABG Total CO2 (22-28) mmol/L ABG O2 Saturation (95-98) % ABG Base Excess (-2.0-3.0) mmol/L ABG Hemoglobin (11.7-17.4) g/dL ABG Carboxyhemoglobin (0.5-1.5) % POC ABG HHb (Measured) (0.0-5.0) % ABG Methemoglobin (0.0-3.0) % Jasvir Test A-a O2 Difference mm/Hg Respiratory Index Hgb O2 Saturation (95.0-98.0) % Vent Mode Mechanical Rate FiO2 % Tidal Volume PEEP Sodium (132-148) mmol/L Potassium (3.6-5.2) mmol/L Chloride (98-107) mmol/L Carbon Dioxide (22-30) mmol/L Anion Gap (10-20) BUN (7-17) mg/dL Creatinine (0.7-1.2) MG/DL Est GFR ( Amer) Est GFR (Non-Af Amer) POC Glucose (mg/dL) 214 H (65-110) mg/dL Random Glucose (65-105) mg/dL Calcium (8.6-10.4) mg/dl Phosphorus (2.5-4.5) mg/dL Magnesium (1.6-2.3) mg/dL Total Bilirubin (0.2-1.3) mg/dL AST (14-36) U/L ALT (9-52) U/L Alkaline Phosphatase (38-126) U/L Troponin I (0.00-0.120) ng/mL Total Protein (6.3-8.3) g/dL Albumin (3.5-5.0) g/dL Globulin (2.2-3.9) gm/dL Albumin/Globulin Ratio (1.0-2.1) Carcinoembryonic Ag (0-3.0) ng/mL CA 125 Antigen (0-35) U/mL Laboratory Results - last 24 hr 06/26/17 06/27/17 06/27/17 23:47 05:28 05:59 WBC RBC Hgb Hct MCV MCH MCHC RDW Plt Count MPV Neut % (Auto) Lymph % (Auto) [place] % (Auto) Eos % (Auto) Baso % (Auto) Neut # Lymph # [place] # Eos # Baso # Puncture Site Rr pCO2 26 L pO2 85 HCO3 17.8 L ABG pH 7.37 ABG Total CO2 15.8 L ABG O2 Saturation 99.4 H ABG Base Excess -9.2 L ABG Hemoglobin 8.3 L ABG Carboxyhemoglobin 1.7 H POC ABG HHb (Measured) 0.6 ABG Methemoglobin 1.1 Jasvir Test Pos A-a O2 Difference 239.0 Respiratory Index 2.8 Hgb O2 Saturation 96.5 Vent Mode Prvc Mechanical Rate 20 FiO2 50.0 Tidal Volume 500 PEEP 5 Sodium Potassium Chloride Carbon Dioxide Anion Gap BUN Creatinine Est GFR ( Amer) Est GFR (Non-Af Amer) POC Glucose (mg/dL) 214 H 202 H Random Glucose Calcium Phosphorus Magnesium Total Bilirubin AST ALT Alkaline Phosphatase Troponin I Total Protein Albumin Globulin Albumin/Globulin Ratio Carcinoembryonic Ag CA 125 Antigen 06/27/17 06/27/17 06/27/17 06:14 06:14 12:07 WBC 17.7 H RBC 3.25 L Hgb 8.5 L Hct 27.1 L MCV 83.6 MCH 26.0 L MCHC 31.2 L RDW 17.3 H Plt Count 154 MPV 9.8 Neut % (Auto) 74.7 Lymph % (Auto) 18.6 L [place] % (Auto) 6.4 Eos % (Auto) 0.1 Baso % (Auto) 0.2 Neut # 13.2 H Lymph # 3.3 [place] # 1.1 H Eos # 0.0 Baso # 0.0 Puncture Site pCO2 pO2 HCO3 ABG pH ABG Total CO2 ABG O2 Saturation ABG Base Excess ABG Hemoglobin ABG Carboxyhemoglobin POC ABG HHb (Measured) ABG Methemoglobin Jasvir Test A-a O2 Difference Respiratory Index Hgb O2 Saturation Vent Mode Mechanical Rate FiO2 Tidal Volume PEEP Sodium 141 Potassium 4.5 Chloride 113 H Carbon Dioxide 17 L Anion Gap 16 BUN 35 H Creatinine 2.4 H Est GFR ( Amer) 24 Est GFR (Non-Af Amer) 20 POC Glucose (mg/dL) 232 H Random Glucose 175 H Calcium 7.5 L Phosphorus 3.5 Magnesium 1.9 Total Bilirubin 0.6 AST 42 H ALT 46 Alkaline Phosphatase 51 Troponin I 2.8400 H* Total Protein 5.2 L Albumin 2.7 L Globulin 2.5 Albumin/Globulin Ratio 1.1 Carcinoembryonic Ag 0.5 CA 125 Antigen < 5.5 06/27/17 17:42 WBC RBC Hgb Hct MCV MCH MCHC RDW Plt Count MPV Neut % (Auto) Lymph % (Auto) [place] % (Auto) Eos % (Auto) Baso % (Auto) Neut # Lymph # [place] # Eos # Baso # Puncture Site pCO2 pO2 HCO3 ABG pH ABG Total CO2 ABG O2 Saturation ABG Base Excess ABG Hemoglobin ABG Carboxyhemoglobin POC ABG HHb (Measured) ABG Methemoglobin Jasvir Test A-a O2 Difference Respiratory Index Hgb O2 Saturation Vent Mode Mechanical Rate FiO2 Tidal Volume PEEP Sodium Potassium Chloride Carbon Dioxide Anion Gap BUN Creatinine Est GFR ( Amer) Est GFR (Non-Af Amer) POC Glucose (mg/dL) 225 H Random Glucose Calcium Phosphorus Magnesium Total Bilirubin AST ALT Alkaline Phosphatase Troponin I Total Protein Albumin Globulin Albumin/Globulin Ratio Carcinoembryonic Ag CA 125 Antigen Fingerstick Blood Sugar Results: 225 Review of Systems - Review of Systems Systems not reviewed;Unavailable: Intubated Critical Care Progress Note - Nutrition Nutrition: Nutrition Category Date Time Status NPO Diet [DIET] Diets 06/26/17 Breakfast Active Assessment/Plan - Assessment and Plan (Free Text) Assessment: Neuro: alert - off sedation - Versed prn for agitation Pulm: - Intubated, vent settings: TV 450, RR 16, PEEP 5, FiO2 45. - Acute respiratory failure with hypoxemia secondary to pulmonary edema - CXR: mild interval decrease in persistent interstitial prominenece which may be infection or edema; b/l hilar prominence may reflect central vascular congestion CV: NSTEMI - Troponin: 025, 3.11, 4;03, 2.84 (trending down) - Cardiology consulted: Dr. Arshad - Off pressors - Echo: EF 35%; moderately imparied LV systolic function; mild hypokinesis of posterior wall; grade-II pseudonormal diastolic dysfunction; elevated LA pressure; mod dilated LA; Trace AR; Aortic valve mildly sclerotic. Endo: no acute issues - ISS GI: anemic - GI consulted: Dr. Mendoza, help appreciated - EGD scheduled for 06/27/17 - Hgb 6.5 on admission, transfused 2 units PRBC - EDG and colonoscopy in 02/2017, 5mm polyp resected; congested mucosa in descending colon, non-bleeding external, internal hemorrhoids. - Monitor H/H Heme: anemic - Monitor H/H Renal: - Nephrology consulted- Dr. Moreira, help appreciated - Elevated BUN/Cr: 35/2.5 ID: Leokocytosis - Continue Azithromycin, Vancomycin, Zosyn Prophylaxis: - DVT: SCDs; anticoagulation C/I- anemic - GI: Pepcid daily <Shahab Arauz - Last Filed: 06/30/17 17:14> CCU Objective - Vital Signs / Intake & Output Vital Signs (Last 4 hours): Vital Signs Temp Pulse Resp BP Pulse Ox 06/30/17 16:37 72 08/24/17 16:00 97.5 F L 140 H 29 H 97 06/30/17 15:37 100 H 24 153/74 H 99 06/30/17 15:00 76 22 97 06/30/17 14:36 71 20 166/70 H 97 06/30/17 14:00 68 17 98 06/30/17 13:36 63 15 159/62 H 100 06/30/17 13:15 61 Intake and Output (Last 8hrs): Intake & Output 06/30/17 06/30/17 06/30/17 06:59 14:59 22:59 Intake Total 210 222.4 50.8 Output Total 936 1722 225 Balance -726 -1499.6 -174.2 Weight 143 lb 2 oz Intake: IV 15 105 30 Intake, IV Amount 195 117.4 20.8 Right Distal Port Femoral 47.4 15.8 Right Proximal Port 195 70 5 Femoral Output: Urine 936 1722 225 Urethral (Neff) 936 1722 225 Other: # Bowel Movements 0 0 - Medications Active Medications: Active Medications Generic Name Dose Route Start Last Admin Trade Name Freq PRN Reason Stop Dose Admin Famotidine 20 mg 06/26/17 10:00 06/30/17 09:18 Pepcid IVP 20 mg DAILY ASIM Administration Piperacillin Sod/Tazobactam Sod 2.25 gm in 50 mls @ 100 mls/hr 06/26/17 09:00 06/30/17 16:08 Zosyn 2.25 Gm Iv Premix IVPB 100 mls/hr Q8H ASIM Administration Azithromycin 500 mg/ Sodium 250 mls @ 250 mls/hr 06/26/17 10:00 06/30/17 09: 18 Chloride IVPB 250 mls/hr DAILY ASIM Administration Vancomycin/Sodium Chloride 1 gm in 200 mls @ 133.333 mls/hr 06/27/17 12:00 13:00 Vancocin IVPB Not Given Q24H ASIM Diltiazem HCl 125 mg/ Sodium 125 mls @ 5 mls/hr 06/30/17 03:00 06/30/17 16:20 Chloride IV 10 mg/hr .Q24H ASIM 10 mls/hr Protocol Titration 5 MG/HR Heparin Sodium/Sodium Chloride 25,000 units in 250 mls @ 7.947 mls/hr 08:36 06/30/17 08:45 Heparin 24625 Units/250ml 1/2 Normal Saline IV 12 units/kg/hr .Q24H PRN 7.947 mls/hr TITRATE PER PROTOCOL Administration Protocol 12 UNITS/KG/HR Insulin Human Regular 0 unit 06/27/17 13:02 06/30/17 11:52 Novolin R SC Not Given Q6 ASIM Protocol Metoclopramide HCl 5 mg 06/28/17 16:30 06/30/17 16:23 Reglan IVP 5 mg ACHS ASIM Administration Metoprolol Tartrate 50 mg 06/30/17 10:00 06/30/17 12:09 Lopressor PO Not Given BID ASIM Metoprolol Tartrate 5 mg 06/30/17 12:45 06/30/17 13:00 Lopressor IVP 5 mg Q6H ASIM Administration Midazolam HCl 1 mg 06/27/17 18:43 Versed Inj IVP Q2H PRN Agitation Ondansetron HCl 4 mg 06/29/17 14:17 Zofran Inj IVP Q6H PRN Nausea/Vomiting - Patient Studies Lab Studies: Lab Studies 06/30/17 06/30/17 06/30/17 Range/Units 15:05 12:10 12:10 WBC (4.8-10.8) K/uL RBC (3.80-5.20) Mil/uL Hgb (11.0-16.0) g/dL Hct (34.0-47.0) % MCV (81.0-99.0) fL MCH (27.0-31.0) pg MCHC (33.0-37.0) g/dL RDW (11.5-14.5) % Plt Count (130-400) K/uL MPV (7.2-11.7) fL Neut % (Auto) (50.0-75.0) % Lymph % (Auto) (20.0-40.0) % [place] % (Auto) (0.0-10.0) % Eos % (Auto) (0.0-4.0) % Baso % (Auto) (0.0-2.0) % Neut # (1.8-7.0) K/uL Lymph # (1.0-4.3) K/uL [place] # (0.0-0.8) K/uL Eos # (0.0-0.7) K/uL Baso # (0.0-0.2) K/uL PT (9.7-12.2) SECONDS INR APTT 62 H D (21-34) SECONDS Puncture Site pCO2 (35-45) mm/Hg pO2 (80-100) mm/Hg HCO3 (21-28) mmol/L ABG pH (7.35-7.45) ABG Total CO2 (22-28) mmol/L ABG O2 Saturation (95-98) % ABG Base Excess (-2.0-3.0) mmol/L ABG Hemoglobin (11.7-17.4) g/dL ABG Carboxyhemoglobin (0.5-1.5) % POC ABG HHb (Measured) (0.0-5.0) % ABG Methemoglobin (0.0-3.0) % Jasvir Test A-a O2 Difference mm/Hg Respiratory Index Hgb O2 Saturation (95.0-98.0) % FiO2 % Inspiratory BiPAP Expiratory BiPAP Sodium (132-148) mmol/L Potassium (3.6-5.2) mmol/L Chloride (98-107) mmol/L Carbon Dioxide (22-30) mmol/L Anion Gap (10-20) BUN (7-17) mg/dL Creatinine (0.7-1.2) MG/DL Est GFR ( Amer) Est GFR (Non-Af Amer) POC Glucose (mg/dL) (65-110) mg/dL Random Glucose (65-105) mg/dL Calcium (8.6-10.4) mg/dl Phosphorus (2.5-4.5) mg/dL Magnesium (1.6-2.3) mg/dL Total Bilirubin (0.2-1.3) mg/dL AST (14-36) U/L ALT (9-52) U/L Alkaline Phosphatase (38-126) U/L Troponin I (0.00-0.120) ng/mL Total Protein (6.3-8.3) g/dL Albumin (3.5-5.0) g/dL Globulin (2.2-3.9) gm/dL Albumin/Globulin Ratio (1.0-2.1) Procalcitonin 0.40 (0.19-0.49) NG/ML TSH 3rd Generation 1.36 (0.46-4.68) mIU/L 06/30/17 06/30/17 06/30/17 Range/Units 11:32 08:07 06:27 WBC (4.8-10.8) K/uL RBC (3.80-5.20) Mil/uL Hgb (11.0-16.0) g/dL Hct (34.0-47.0) % MCV (81.0-99.0) fL MCH (27.0-31.0) pg MCHC (33.0-37.0) g/dL RDW (11.5-14.5) % Plt Count (130-400) K/uL MPV (7.2-11.7) fL Neut % (Auto) (50.0-75.0) % Lymph % (Auto) (20.0-40.0) % [place] % (Auto) (0.0-10.0) % Eos % (Auto) (0.0-4.0) % Baso % (Auto) (0.0-2.0) % Neut # (1.8-7.0) K/uL Lymph # (1.0-4.3) K/uL [place] # (0.0-0.8) K/uL Eos # (0.0-0.7) K/uL Baso # (0.0-0.2) K/uL PT 12.6 H (9.7-12.2) SECONDS INR 1.1 APTT 24 (21-34) SECONDS Puncture Site pCO2 (35-45) mm/Hg pO2 (80-100) mm/Hg HCO3 (21-28) mmol/L ABG pH (7.35-7.45) ABG Total CO2 (22-28) mmol/L ABG O2 Saturation (95-98) % ABG Base Excess (-2.0-3.0) mmol/L ABG Hemoglobin (11.7-17.4) g/dL ABG Carboxyhemoglobin (0.5-1.5) % POC ABG HHb (Measured) (0.0-5.0) % ABG Methemoglobin (0.0-3.0) % Jasvir Test A-a O2 Difference mm/Hg Respiratory Index Hgb O2 Saturation (95.0-98.0) % FiO2 % Inspiratory BiPAP Expiratory BiPAP Sodium 145 (132-148) mmol/L Potassium 4.0 (3.6-5.2) mmol/L Chloride 113 H (98-107) mmol/L Carbon Dioxide 17 L (22-30) mmol/L Anion Gap 19 (10-20) BUN 46 H (7-17) mg/dL Creatinine 2.2 H (0.7-1.2) MG/DL Est GFR ( Amer) 26 Est GFR (Non-Af Amer) 22 POC Glucose (mg/dL) 194 H (65-110) mg/dL Random Glucose 120 H (65-105) mg/dL Calcium 8.5 L (8.6-10.4) mg/dl Phosphorus 5.1 H (2.5-4.5) mg/dL Magnesium 1.9 (1.6-2.3) mg/dL Total Bilirubin 0.7 (0.2-1.3) mg/dL AST 49 H D (14-36) U/L ALT 61 H D (9-52) U/L Alkaline Phosphatase 92 (38-126) U/L Troponin I 0.6370 H* (0.00-0.120) ng/mL Total Protein 6.1 L (6.3-8.3) g/dL Albumin 3.2 L (3.5-5.0) g/dL Globulin 2.9 (2.2-3.9) gm/dL Albumin/Globulin Ratio 1.1 (1.0-2.1) Procalcitonin (0.19-0.49) NG/ML TSH 3rd Generation (0.46-4.68) mIU/L 06/30/17 06/30/17 06/30/17 Range/Units 06:27 05:33 05:27 WBC 15.1 H (4.8-10.8) K/uL RBC 3.19 L (3.80-5.20) Mil/uL Hgb 8.5 L (11.0-16.0) g/dL Hct 27.3 L (34.0-47.0) % MCV 85.7 (81.0-99.0) fL MCH 26.7 L (27.0-31.0) pg MCHC 31.2 L (33.0-37.0) g/dL RDW 17.8 H (11.5-14.5) % Plt Count 162 (130-400) K/uL MPV 10.3 (7.2-11.7) fL Neut % (Auto) 74.2 (50.0-75.0) % Lymph % (Auto) 16.0 L (20.0-40.0) % [place] % (Auto) 7.2 (0.0-10.0) % Eos % (Auto) 2.0 (0.0-4.0) % Baso % (Auto) 0.6 (0.0-2.0) % Neut # 11.2 H (1.8-7.0) K/uL Lymph # 2.4 (1.0-4.3) K/uL [place] # 1.1 H (0.0-0.8) K/uL Eos # 0.3 (0.0-0.7) K/uL Baso # 0.1 (0.0-0.2) K/uL PT (9.7-12.2) SECONDS INR APTT (21-34) SECONDS Puncture Site R rad pCO2 39 (35-45) mm/Hg pO2 67 L (80-100) mm/Hg HCO3 18.3 L (21-28) mmol/L ABG pH 7.27 L (7.35-7.45) ABG Total CO2 19.1 L (22-28) mmol/L ABG O2 Saturation 96.2 (95-98) % ABG Base Excess -8.4 L (-2.0-3.0) mmol/L ABG Hemoglobin 9.6 L (11.7-17.4) g/dL ABG Carboxyhemoglobin 2.2 H (0.5-1.5) % POC ABG HHb (Measured) 3.7 (0.0-5.0) % ABG Methemoglobin 0.5 (0.0-3.0) % Jasvir Test Pos A-a O2 Difference 241.0 mm/Hg Respiratory Index 3.6 Hgb O2 Saturation 93.6 L (95.0-98.0) % FiO2 50.0 % Inspiratory BiPAP 10 Expiratory BiPAP 5 Sodium (132-148) mmol/L Potassium (3.6-5.2) mmol/L Chloride (98-107) mmol/L Carbon Dioxide (22-30) mmol/L Anion Gap (10-20) BUN (7-17) mg/dL Creatinine (0.7-1.2) MG/DL Est GFR ( Amer) Est GFR (Non-Af Amer) POC Glucose (mg/dL) 156 H (65-110) mg/dL Random Glucose (65-105) mg/dL Calcium (8.6-10.4) mg/dl Phosphorus (2.5-4.5) mg/dL Magnesium (1.6-2.3) mg/dL Total Bilirubin (0.2-1.3) mg/dL AST (14-36) U/L ALT (9-52) U/L Alkaline Phosphatase (38-126) U/L Troponin I (0.00-0.120) ng/mL Total Protein (6.3-8.3) g/dL Albumin (3.5-5.0) g/dL Globulin (2.2-3.9) gm/dL Albumin/Globulin Ratio (1.0-2.1) Procalcitonin (0.19-0.49) NG/ML TSH 3rd Generation (0.46-4.68) mIU/L 06/30/17 06/29/17 Range/Units 00:28 18:12 WBC (4.8-10.8) K/uL RBC (3.80-5.20) Mil/uL Hgb (11.0-16.0) g/dL Hct (34.0-47.0) % MCV (81.0-99.0) fL MCH (27.0-31.0) pg MCHC (33.0-37.0) g/dL RDW (11.5-14.5) % Plt Count (130-400) K/uL MPV (7.2-11.7) fL Neut % (Auto) (50.0-75.0) % Lymph % (Auto) (20.0-40.0) % [place] % (Auto) (0.0-10.0) % Eos % (Auto) (0.0-4.0) % Baso % (Auto) (0.0-2.0) % Neut # (1.8-7.0) K/uL Lymph # (1.0-4.3) K/uL [place] # (0.0-0.8) K/uL Eos # (0.0-0.7) K/uL Baso # (0.0-0.2) K/uL PT (9.7-12.2) SECONDS INR APTT (21-34) SECONDS Puncture Site pCO2 (35-45) mm/Hg pO2 (80-100) mm/Hg HCO3 (21-28) mmol/L ABG pH (7.35-7.45) ABG Total CO2 (22-28) mmol/L ABG O2 Saturation (95-98) % ABG Base Excess (-2.0-3.0) mmol/L ABG Hemoglobin (11.7-17.4) g/dL ABG Carboxyhemoglobin (0.5-1.5) % POC ABG HHb (Measured) (0.0-5.0) % ABG Methemoglobin (0.0-3.0) % Jasvir Test A-a O2 Difference mm/Hg Respiratory Index Hgb O2 Saturation (95.0-98.0) % FiO2 % Inspiratory BiPAP Expiratory BiPAP Sodium (132-148) mmol/L Potassium (3.6-5.2) mmol/L Chloride (98-107) mmol/L Carbon Dioxide (22-30) mmol/L Anion Gap (10-20) BUN (7-17) mg/dL Creatinine (0.7-1.2) MG/DL Est GFR ( Amer) Est GFR (Non-Af Amer) POC Glucose (mg/dL) 138 H 154 H (65-110) mg/dL Random Glucose (65-105) mg/dL Calcium (8.6-10.4) mg/dl Phosphorus (2.5-4.5) mg/dL Magnesium (1.6-2.3) mg/dL Total Bilirubin (0.2-1.3) mg/dL AST (14-36) U/L ALT (9-52) U/L Alkaline Phosphatase (38-126) U/L Troponin I (0.00-0.120) ng/mL Total Protein (6.3-8.3) g/dL Albumin (3.5-5.0) g/dL Globulin (2.2-3.9) gm/dL Albumin/Globulin Ratio (1.0-2.1) Procalcitonin (0.19-0.49) NG/ML TSH 3rd Generation (0.46-4.68) mIU/L Laboratory Results - last 24 hr 06/29/17 06/30/17 06/30/17 18:12 00:28 05:27 WBC RBC Hgb Hct MCV MCH MCHC RDW Plt Count MPV Neut % (Auto) Lymph % (Auto) [place] % (Auto) Eos % (Auto) Baso % (Auto) Neut # Lymph # [place] # Eos # Baso # PT INR APTT Puncture Site R rad pCO2 39 pO2 67 L HCO3 18.3 L ABG pH 7.27 L ABG Total CO2 19.1 L ABG O2 Saturation 96.2 ABG Base Excess -8.4 L ABG Hemoglobin 9.6 L ABG Carboxyhemoglobin 2.2 H POC ABG HHb (Measured) 3.7 ABG Methemoglobin 0.5 Jasvir Test Pos A-a O2 Difference 241.0 Respiratory Index 3.6 Hgb O2 Saturation 93.6 L FiO2 50.0 Inspiratory BiPAP 10 Expiratory BiPAP 5 Sodium Potassium Chloride Carbon Dioxide Anion Gap BUN Creatinine Est GFR ( Amer) Est GFR (Non-Af Amer) POC Glucose (mg/dL) 154 H 138 H Random Glucose Calcium Phosphorus Magnesium Total Bilirubin AST ALT Alkaline Phosphatase Troponin I Total Protein Albumin Globulin Albumin/Globulin Ratio Procalcitonin TSH 3rd Generation 06/30/17 06/30/17 06/30/17 05:33 06:27 06:27 WBC 15.1 H RBC 3.19 L Hgb 8.5 L Hct 27.3 L MCV 85.7 MCH 26.7 L MCHC 31.2 L RDW 17.8 H Plt Count 162 MPV 10.3 Neut % (Auto) 74.2 Lymph % (Auto) 16.0 L [place] % (Auto) 7.2 Eos % (Auto) 2.0 Baso % (Auto) 0.6 Neut # 11.2 H Lymph # 2.4 [place] # 1.1 H Eos # 0.3 Baso # 0.1 PT INR APTT Puncture Site pCO2 pO2 HCO3 ABG pH ABG Total CO2 ABG O2 Saturation ABG Base Excess ABG Hemoglobin ABG Carboxyhemoglobin POC ABG HHb (Measured) ABG Methemoglobin Jasvir Test A-a O2 Difference Respiratory Index Hgb O2 Saturation FiO2 Inspiratory BiPAP Expiratory BiPAP Sodium 145 Potassium 4.0 Chloride 113 H Carbon Dioxide 17 L Anion Gap 19 BUN 46 H Creatinine 2.2 H Est GFR ( Amer) 26 Est GFR (Non-Af Amer) 22 POC Glucose (mg/dL) 156 H Random Glucose 120 H Calcium 8.5 L Phosphorus 5.1 H Magnesium 1.9 Total Bilirubin 0.7 AST 49 H D ALT 61 H D Alkaline Phosphatase 92 Troponin I 0.6370 H* Total Protein 6.1 L Albumin 3.2 L Globulin 2.9 Albumin/Globulin Ratio 1.1 Procalcitonin TSH 3rd Generation 06/30/17 06/30/17 06/30/17 08:07 11:32 12:10 WBC RBC Hgb Hct MCV MCH MCHC RDW Plt Count MPV Neut % (Auto) Lymph % (Auto) [place] % (Auto) Eos % (Auto) Baso % (Auto) Neut # Lymph # [place] # Eos # Baso # PT 12.6 H INR 1.1 APTT 24 Puncture Site pCO2 pO2 HCO3 ABG pH ABG Total CO2 ABG O2 Saturation ABG Base Excess ABG Hemoglobin ABG Carboxyhemoglobin POC ABG HHb (Measured) ABG Methemoglobin Jasvir Test A-a O2 Difference Respiratory Index Hgb O2 Saturation FiO2 Inspiratory BiPAP Expiratory BiPAP Sodium Potassium Chloride Carbon Dioxide Anion Gap BUN Creatinine Est GFR ( Amer) Est GFR (Non-Af Amer) POC Glucose (mg/dL) 194 H Random Glucose Calcium Phosphorus Magnesium Total Bilirubin AST ALT Alkaline Phosphatase Troponin I Total Protein Albumin Globulin Albumin/Globulin Ratio Procalcitonin 0.40 TSH 3rd Generation 06/30/17 06/30/17 12:10 15:05 WBC RBC Hgb Hct MCV MCH MCHC RDW Plt Count MPV Neut % (Auto) Lymph % (Auto) [place] % (Auto) Eos % (Auto) Baso % (Auto) Neut # Lymph # [place] # Eos # Baso # PT INR APTT 62 H D Puncture Site pCO2 pO2 HCO3 ABG pH ABG Total CO2 ABG O2 Saturation ABG Base Excess ABG Hemoglobin ABG Carboxyhemoglobin POC ABG HHb (Measured) ABG Methemoglobin Jasvir Test A-a O2 Difference Respiratory Index Hgb O2 Saturation FiO2 Inspiratory BiPAP Expiratory BiPAP Sodium Potassium Chloride Carbon Dioxide Anion Gap BUN Creatinine Est GFR ( Amer) Est GFR (Non-Af Amer) POC Glucose (mg/dL) Random Glucose Calcium Phosphorus Magnesium Total Bilirubin AST ALT Alkaline Phosphatase Troponin I Total Protein Albumin Globulin Albumin/Globulin Ratio Procalcitonin TSH 3rd Generation 1.36 EKG/Cardiology Studies: Cardiology / EKG Studies 06/29/17 22:40 ELECTROCARDIOGRAM Stat Comment: Mode Of Transportation: Reason For Exam: afib, on monitor Attending/Attestation - Attestation I have personally seen and examined this patient.: Yes I have fully participated in the care of the patient.: Yes I have reviewed all pertinent clinical information: Yes Notes (Text): Today: Tuesday, June 27, 2017 The Patient was seen and examined at the bedside, Medical records reviewed, and management issues were discussed and formulated with the house staff. I have reviewed all the relevant clinical, laboratory, hemodynamic, radiographic data and medications Events reviewed Pain issues, skin care, head of the bed elevation, glycemic control were addressed. Agree with above treatment plans as transcribed in note I concur with resident's assessment and plan of care as transcribed in Dr. Coreas note.
[2017-06-28] MEDS: (Novolin R) Insulin Human Regular 100 units/ml vial SC SCH ×4 (00:11→18:17)
[2017-06-28] MEDS: Piperacill/Tazo 2.25gm in Dex 2.25 GM/50 ML BAG IVPB SCH ×3 (01:30→17:00)
--- NOTE | 2017-06-28 04:00 | PN ---
LOCATION: ICU 12. SUBJECTIVE: This 77-year-old female was seen and examined on rounds for GI consultation initially on 06/2017, reexamined again today, intubated and sedated. The entire chart was reviewed including, but not limited to most recent laboratory and radiology study results, current and previous medication lists, current and previous medical events were reviewed, and the case was discussed with the family members at bedside, as well as the staff in the intensive care unit. LABORATORY DATA: Most recent lab results showed leukocytosis of 17.7, with low hemoglobin 8.5, low hematocrit 27.1, with normal platelets count. Abnormal ABGs with decreased CO2 content of 17 indicative of metabolic acidosis with BUN elevated to 35, creatinine 2.4 with blood glucose level 232, but low calcium of 7.5 and the AST slightly elevated to 42, with excessive increase of troponin level to 2.84, which is less than before, with albumin 2.7 and total protein 5.2. Most recent chest x-ray done today, official report is still pending. PHYSICAL EXAMINATION GENERAL: A 77-year-old female, sedated, intubated. VITAL SIGNS: Afebrile, with pulse of 88, blood pressure 114/68. HEENT: Showed pale dry mucous membrane, nonicteric sclerae. The patient is intubated to vent. LUNGS: She has got crepitation, decreased air entry at bases. HEART: Positive S1 and S2. ABDOMEN: Soft, with slight distention. No mass or organomegaly. No rebound tenderness or guarding. EXTREMITIES: Lower extremities with edematous changes. No clubbing or cyanosis. NEUROLOGIC: No reported new neurological deficits, sensory or motor. IMPRESSION: 1. Anemia, rule out gastrointestinal bleeding upper versus lower, rule out occult gastrointestinal malignancy. 2. Chest pain with elevated troponin level and near-syncopal episode. The possibility of myocardial infarction was raised. 3. Respiratory failure with possible aspiration pneumonia. 4. Electrolyte imbalance with severe hypocalcemia. 5. Known history of but not limited to hyperlipidemia, hypertension, chronic renal insufficiency, as well as osteoarthritis. 6. Malnutrition with hypoalbuminemia and hypoproteinemia, the patient is on nasogastric tube feeding so far. SUGGESTIONS: 1. Agree with your plan. 2. The patient was scheduled for upper endoscopy today, but due to excessive delay, unnecessary delay of endoscopy room, the upper endoscopy is to be rescheduled for the a.m. and that is to be discussed with family member. 3. Further recommendation to follow. 4. Cancer markers including CEA, CA19-9 and CA125, which reported to be normal. Thank you for letting me participate in your patient's case management and more blood transfusion after complete cardiac evaluation is to be kept in mind. Diana Cazares MD
--- NOTE | 2017-06-28 05:16 | CON ---
DATE: 06/26/2017 LOCATION: ICU 12. Transfer from Dr. Cazares to Dr. Arshad. I was called for GI consultation by the admitting MD as well as ICU staff. The patient is seen and fully examined on 06/26/2017 as requested by the admitting medical team. The entire chart is reviewed including, but not limited to most recent lab and radiology study results, current and previous medication lists, current and previous medical events, allergy to medication list as well as all the available current and previous medical records. Case discussed with the family member. HISTORY OF PRESENT ILLNESS: This is a 77-year-old female who was admitted to hospital through the emergency room with her current episode of nausea and vomiting, syncopal episode, chest pain with bradycardia, had been intubated for airway protection by the EMS, by the BLS in the emergency room. After being admitted to the hospital, the patient was found to have very low hemoglobin and hematocrit with hemoglobin of 6.5, hematocrit 22.9, for which GI consultation was called. PAST MEDICAL HISTORY: Including but not limited to; 1. Hypertension. 2. Osteoarthritis. 3. Hyperlipidemia. 4. Chronic renal insufficiency. FAMILY HISTORY: Noncontributory. SOCIAL HISTORY: No recent history of cigarette smoking or alcohol intake. CURRENT MEDICATIONS: Medication lists were reviewed. ALLERGIES TO MEDICATION: NONE REPORTED. It has to be mentioned that all the information is obtained from the medical record, physician notes, as well as nursing notes and family members. LABORATORY DATA: Most recent lab results post admission showed leukocytosis of 19.5 with hemoglobin 6.5, hematocrit 22.9, but normal platelet counts, with abnormal ABGs post intubation with CO2 content of 11 indicative of severe metabolic acidosis with BUN 30, creatinine 2.2, with blood glucose level 375 with low calcium 7.9 and mild increase of AST to 54 with troponin level of 0.2300, and low albumin 3.2, low total protein 5.9. Stool for occult blood was reportedly positive. PHYSICAL EXAMINATION GENERAL: A 77-year-old female, intubated, sedated as it was reported the patient was very restless. VITAL SIGNS: Pulse of 78 and blood pressure 110/56. HEENT: Showed pale, dry oral mucous membrane, nonicteric sclerae. LUNGS: Few scattered crepitation with decrease air entry at bases. HEART: Positive S1 and S2. ABDOMEN: Soft, slight distention. No mass or organomegaly. No rebound tenderness or guarding. EXTREMITIES: Without significant clubbing, cyanosis or edema. NEUROLOGIC: No new reported neurological deficit, sensory or motor. Peripheral pulses are decreased bilaterally, but positive. IMPRESSION: 1. Severe anemia with guaiac positive stool upper versus lower versus GI blood loss versus occult gastrointestinal malignancy. 2. Chest pain with possible massive myocardial infarction. 3. Re-exacerbation of peptic ulcer disease with recurrent episodes of nausea and vomiting. 4. Known history of, but not limited to hypertension, hyperlipidemia, osteoarthritis and chronic renal insufficiency. 5. Severe metabolic acidosis with metabolic encephalopathy. 6. Electrolyte imbalance with hypocalcemia. 7. Malnutrition with hypoalbuminemia. SUGGESTIONS: 1. Agree with your plan. 2. Due to the patient's respiratory failure, the possibility of aspiration pneumonia was raised. 3. More blood transfusion to keep hemoglobin around 10 g%. 4. Cancer markers. 5. Serum lipase and amylase level. 6. Sectional abdominal and pelvic CAT scan. 7. Endoscopic evaluation of the GI tract, when the patient is more stable clinically and after obtaining consent from the legal guardian. 8. Correct any underlying coagulopathy. 9. Further recommendation to follow, and CAT scan of the head is recommended. Diana Cazares MD
[2017-06-28 06:16] LABS: ABG ALLEN TEST POS; ABG MECHANICAL RATE 16; ARTERIAL BLOOD GAS MODE PRVC; ARTERIAL BLOOD HGB O2 SAT 96.9 % (95.0-98.0); ATERIAL BLOOD GAS PEEP 5; CARBOXYHEMOGLOBIN 1.4 % (0.5-1.5); DRAW SITE RR; HHB 0.3 % (0.0-5.0); METHEMOGLOBIN 1.3 % (0.0-3.0)
[2017-06-28 06:54] LABS: BASO # 0.1 K/uL (0.0-0.2); BASO % 0.3 % (0.0-2.0); HEMATOCRIT 26.2 % (34.0-47.0); LYMPH # 2.8 K/uL (1.0-4.3); LYMPH % 13.4 % (20.0-40.0); MEAN CELL VOLUME 85.5 fL (81.0-99.0); MEAN CORPUSCULAR HEMOGLOBIN 26.4 pg (27.0-31.0); MEAN CORPUSCULAR HGB CONC 30.9 g/dL (33.0-37.0); MEAN PLATELET VOLUME 10.3 fL (7.2-11.7); MONO # 1.5 K/uL (0.0-0.8); MONO % 7.3 % (0.0-10.0); RED CELL DISTRIBUTION WIDTH 17.7 % (11.5-14.5)
[2017-06-28 06:55] LABS: ALB/GLOB RATIO 1.2 (1.0-2.1); BILIRUBIN,TOTAL 0.3 mg/dL (0.2-1.3); CALCIUM 8.2 mg/dl (8.6-10.4); MAGNESIUM 2.1 mg/dL (1.6-2.3); PHOSPHOROUS 5.3 mg/dL (2.5-4.5); POTASSIUM 4.8 mmol/L (3.6-5.2); TOTAL PROTEIN 5.7 g/dL (6.3-8.3)
--- NOTE | 2017-06-28 09:26 | CP.PCM.CON ---
History of Present Illness - History of Present Illness History of Present Illness: RFC: elevated creatinine History obtained from chart and icu staff. per daughter, pt has hx of ckd, unlcear baseline. hasnt seen any boatswain's mate. Denies any nsaid use 77 yo f hx of htn dm, cad, initially c/o chest pain,, had syncopal episode when BLS arrived and became diaphoretic and bradycardic. ALS arrived, patient had episode of vomiting, intubated for airway protection. Severely anemic on presentation, s/p prbc Creatinine eleavted to 2.4 mg/dl, baseline unclear. Review of Systems - Review of Systems Systems not reviewed;Unavailable: Acuity of Condition, Altered Mental Status, Intubated All systems: reviewed and no additional remarkable complaints except Past Patient History - Infectious Disease Hx of Infectious Diseases: None - Past Medical History & Family History Past Medical History?: Yes - Past Social History Smoking Status: Never Smoked - CARDIAC Hx Hypercholesterolemia: Yes Hx Hypertension: Yes - PULMONARY Hx Respiratory Disorders: No - NEUROLOGICAL Hx Neurological Disorder: No - HEENT Hx HEENT Problems: Yes Hx Cataracts: Yes (BIOL) - RENAL Hx Chronic Kidney Disease: Yes - ENDOCRINE/METABOLIC Hx Endocrine Disorders: Yes Hx Diabetes Mellitus Type 2: Yes - HEMATOLOGICAL/ONCOLOGICAL Hx Blood Disorders: No Hx Blood Transfusions: No - INTEGUMENTARY Hx Dermatological Problems: No - MUSCULOSKELETAL/RHEUMATOLOGICAL Hx Falls: No - GASTROINTESTINAL Hx Gastrointestinal Disorders: No - GENITOURINARY/GYNECOLOGICAL Hx Genitourinary Disorders: No - PSYCHIATRIC Hx Substance Use: No - SURGICAL HISTORY Hx Surgeries: Yes Hx Cataract Extraction: Yes (BIOL) - ANESTHESIA Hx Anesthesia: Yes Hx Anesthesia Reactions: No Hx Malignant Hyperthermia: No Meds Allergies/Adverse Reactions: Allergies Allergy/AdvReac Type Severity Reaction Status Date / Time No Known Allergies Allergy Verified 06/26/17 02:25 - Medications Medications: Current Medications Famotidine (Pepcid) 20 mg IVP DAILY [facility] Last Admin: 06/27/17 10:02 Dose: 20 mg Fentanyl Citrate 2,500 mcg/ (Sodium Chloride) 250 mls @ 5.39 mls/hr IV .Q24H [facility]; 0.7 MCG/KG/HR PRN Reason: Protocol Last Admin: 06/28/17 05:54 Dose: 1 mcg/kg/hr, 7.71 mls/hr Piperacillin Sod/Tazobactam Sod (Zosyn 2.25 Gm Iv Premix) 2.25 gm in 50 mls @ 100 mls/hr IVPB Q8H [facility] Last Admin: 06/28/17 08:12 Dose: 100 mls/hr Azithromycin 500 mg/ Sodium (Chloride) 250 mls @ 250 mls/hr IVPB DAILY [facility] Last Admin: 06/27/17 10:03 Dose: 250 mls/hr Norepinephrine Bitartrate 4 mg (/ Sodium Chloride) 250 mls @ 18.75 mls/hr IV .[id number] PRN; Protocol; 5 MCG/MIN PRN Reason: TITRATE PER MD ORDER Last Titration: 06/27/17 06:00 Dose: 0 mcg/min, 0 mls/hr Vancomycin/Sodium Chloride (Vancocin) 1 gm in 200 mls @ 133.333 mls/hr IVPB Q24H [facility] Last Admin: 06/27/17 13:06 Dose: 133.333 mls/hr Insulin Human Regular (Novolin R) 0 unit SC Q6 [facility] PRN Reason: Protocol Last Admin: 06/28/17 07:07 Dose: Not Given Midazolam HCl (Versed Inj) 1 mg IVP Q2H PRN PRN Reason: Agitation Physical Exam - Constitutional Appears: No Acute Distress (intubated sedated) - Head Exam Head Exam: NORMAL INSPECTION - Eye Exam Eye Exam: Normal appearance - ENT Exam Additional comments: et tube - Neck Exam Neck exam: Positive for: Normal Inspection - Respiratory Exam Respiratory Exam: Rales (mechanical vent sounds) - Cardiovascular Exam Cardiovascular Exam: REGULAR RHYTHM, RRR - GI/Abdominal Exam GI & Abdominal Exam: Distended, Normal Bowel Sounds, Soft - Extremities Exam Extremities exam: Positive for: normal inspection Results - Vital Signs Recent Vital Signs: Last Vital Signs Temp 97.8 F 06/28/17 04:00 Pulse 90 06/28/17 06:00 Resp 16 06/28/17 06:00 BP 114/69 06/28/17 05:01 Pulse Ox 100 06/28/17 06:00 - Labs Result Diagrams: 06/28/17 06:32 06/28/17 06:32 Labs: Laboratory Results - last 24 hr 06/27/17 06/27/17 06/27/17 06:14 12:07 17:42 WBC RBC Hgb Hct MCV MCH MCHC RDW Plt Count MPV Neut % (Auto) Lymph % (Auto) [place] % (Auto) Eos % (Auto) Baso % (Auto) Neut # Lymph # [place] # Eos # Baso # Puncture Site pCO2 pO2 HCO3 ABG pH ABG Total CO2 ABG O2 Saturation ABG Base Excess ABG Hemoglobin ABG Carboxyhemoglobin POC ABG HHb (Measured) ABG Methemoglobin Jasvir Test A-a O2 Difference Respiratory Index Hgb O2 Saturation Vent Mode Mechanical Rate FiO2 Tidal Volume PEEP Sodium 141 Potassium 4.5 Chloride 113 H Carbon Dioxide 17 L Anion Gap 16 BUN 35 H Creatinine 2.4 H Est GFR ( Amer) 24 Est GFR (Non-Af Amer) 20 POC Glucose (mg/dL) 232 H 225 H Random Glucose 175 H Calcium 7.5 L Phosphorus 3.5 Magnesium 1.9 Total Bilirubin 0.6 AST 42 H ALT 46 Alkaline Phosphatase 51 Troponin I 2.8400 H* Total Protein 5.2 L Albumin 2.7 L Globulin 2.5 Albumin/Globulin Ratio 1.1 Carcinoembryonic Ag 0.5 CA 125 Antigen < 5.5 06/27/17 06/28/17 06/28/17 23:48 05:42 06:32 WBC 21.0 H RBC 3.07 L Hgb 8.1 L Hct 26.2 L MCV 85.5 MCH 26.4 L MCHC 30.9 L RDW 17.7 H Plt Count 152 MPV 10.3 Neut % (Auto) 79.0 H Lymph % (Auto) 13.4 L [place] % (Auto) 7.3 Eos % (Auto) 0.0 Baso % (Auto) 0.3 Neut # 16.6 H Lymph # 2.8 [place] # 1.5 H Eos # 0.0 Baso # 0.1 Puncture Site Rr pCO2 37 pO2 138 H HCO3 17.4 L ABG pH 7.26 L ABG Total CO2 17.7 L ABG O2 Saturation 99.7 H ABG Base Excess -9.7 L ABG Hemoglobin 8.3 L ABG Carboxyhemoglobin 1.4 POC ABG HHb (Measured) 0.3 ABG Methemoglobin 1.3 Jasvir Test Pos A-a O2 Difference 137.0 Respiratory Index 1.0 Hgb O2 Saturation 96.9 Vent Mode Prvc Mechanical Rate 16 FiO2 45.0 Tidal Volume 450 PEEP 5 Sodium Potassium Chloride Carbon Dioxide Anion Gap BUN Creatinine Est GFR ( Amer) Est GFR (Non-Af Amer) POC Glucose (mg/dL) 197 H Random Glucose Calcium Phosphorus Magnesium Total Bilirubin AST ALT Alkaline Phosphatase Troponin I Total Protein Albumin Globulin Albumin/Globulin Ratio Carcinoembryonic Ag CA 125 Antigen 06/28/17 06/28/17 06:32 06:50 WBC RBC Hgb Hct MCV MCH MCHC RDW Plt Count MPV Neut % (Auto) Lymph % (Auto) [place] % (Auto) Eos % (Auto) Baso % (Auto) Neut # Lymph # [place] # Eos # Baso # Puncture Site pCO2 pO2 HCO3 ABG pH ABG Total CO2 ABG O2 Saturation ABG Base Excess ABG Hemoglobin ABG Carboxyhemoglobin POC ABG HHb (Measured) ABG Methemoglobin Jasvir Test A-a O2 Difference Respiratory Index Hgb O2 Saturation Vent Mode Mechanical Rate FiO2 Tidal Volume PEEP Sodium 143 Potassium 4.8 Chloride 112 H Carbon Dioxide 18 L Anion Gap 18 BUN 48 H Creatinine 2.6 H Est GFR ( Amer) 22 Est GFR (Non-Af Amer) 18 POC Glucose (mg/dL) 147 H Random Glucose 132 H Calcium 8.2 L Phosphorus 5.3 H Magnesium 2.1 Total Bilirubin 0.3 AST 45 H ALT 53 H Alkaline Phosphatase 53 Troponin I Total Protein 5.7 L Albumin 3.1 L Globulin 2.6 Albumin/Globulin Ratio 1.2 Carcinoembryonic Ag CA 125 Antigen Assessment & Plan (1) CKD (chronic kidney disease) Status: Acute (2) Acute respiratory failure with hypoxemia Status: Acute (3) Anemia Status: Acute (4) Elevated troponin Status: Acute (5) Acute renal failure Status: Acute - Assessment and Plan (Free Text) Assessment: # grace - likely sec to hemodynamic instability. cannot r/o obstuctive uropathy / atn # ? underlying ckd. baseline creatinine unclear # elevated troponin / demand ischemia # hypotension # severe anemia plan: iv fluids, pressor support urine and blood cultures check ua, renal ultrasounds avoid nephrotoxic meds
--- NOTE | 2017-06-28 10:04 | RAD ---
HISTORY: intubated COMPARISON: Portable chest 06/27/2017 FINDINGS: LUNGS: Limited atelectasis question posted left heart with no definite infiltrate seen the right side. Endotracheal tube is unchanged in position. A nasogastric tube is again identified placed. Reticular markings are diminished diffusely. PLEURA: No significant pleural effusion identified, no pneumothorax apparent. CARDIOVASCULAR: Cardiac silhouette appears stable with diminishing central hilar hypervascular changes compatible with diminishing CHF. OSSEOUS STRUCTURES: No significant abnormalities. VISUALIZED UPPER ABDOMEN: Normal. OTHER FINDINGS: None. IMPRESSION: Diminishing CHF pattern. Trace atelectasis question posterior to the left heart.
[2017-06-28] MEDS: Sodium Chloride 0.9% 1,000 ML IV SCH ×3 (10:17→22:29)
[2017-06-28] MEDS: Azithromycin 500 MG in Sodium Chloride 0.9% 250 ML IVPB SCH (10:17)
[2017-06-28 10:58] LABS: RBC URINE 60 /hpf (0-3); URINE BACTERIA RARE (<OCC); URINE BILIRUBIN NEGATIVE (NEGATIVE); URINE BLOOD 3+ (NEGATIVE); URINE COLOR Yellow (YELLOW); URINE GLUCOSE (UA) NORMAL (Normal); URINE KETONE NEGATIVE (NEGATIVE); URINE LEUKOCYTE ESTERASE TRACE Leu/uL (Negative); URINE PROTEIN 1+ mg/dL (NEGATIVE); URINE UROBILINOGEN NORMAL mg/dL (0.2-1.0); WBC URINE 15 /hpf (0-5)
[2017-06-28] MEDS ORDERED: Etomidate 20 mg/10ml Inj IV ONE (11:53)
[2017-06-28] MEDS ORDERED: Midazolam 2 MG/2 ML VIAL ONE (11:53)
--- NOTE | 2017-06-28 12:31 | US ---
Limited abdomen/renal ultrasound Indication: Acute renal failure Comparison: None available Findings: The liver measures approximately 13.3 cm in sagittal dimension. Echogenic liver may be seen in setting of hepatic parenchymal disease or fatty infiltration. The main portal vein appears patent with normal directional flow. There is no evidence of intrahepatic ductal dilatation. The common bile duct appears within normal limits of caliber, measuring 3 mm. The gallbladder appears unremarkable. There is no evidence of gallbladder-wall thickening, pericholecystic fluid, or stones. Negative sonographic Castillo's sign as assessed by the hand assembler. The pancreas was not visualized. The right kidney measures 9.8 x 4.2 x 5.3 cm and is without evidence of stones or hydronephrosis. Echogenic renal parenchyma. 2.3 x 2.0 x 2.2 cm right renal cyst. The left kidney measures 9.0 x 3.9 x 4.1 cm and is without evidence of stones or hydronephrosis. Echogenic renal parenchyma. The spleen measures approximately 5.8 cm. The visualized abdominal aorta appears within normal limits caliber. The visualized IVC appear grossly unremarkable. Incidental note is made of right pleural effusion. Impression: Echogenic liver may be seen in setting of hepatic parenchymal disease or fatty infiltration. Bilateral echogenic renal parenchyma may be seen in the setting of medical renal disease. 2.3 x 2.0 x 2.2 cm right renal cyst. Incidental note is made of right pleural effusion.
[2017-06-28] MEDS: Vancomycin 1 gm/NS 200 ml 1 GM/200 ML BAG IVPB SCH (13:00)
--- NOTE | 2017-06-28 13:54 | CP.PCM.PN ---
Subjective - Date & Time of Evaluation Date of Evaluation: 06/28/17 Time of Evaluation: 13:52 - Subjective Subjective: ON VENT AND PRESSOR SUPPORT S/P EGD , NOTHING ACUTE ECHO LOW LV EF CAN NOT DO CATH DUE TO CR 2.4 SUPPORTIVE TRAETMENT Objective - Vital Signs/Intake and Output Vital Signs (last 24 hours): Temp Pulse Resp BP Pulse Ox 98.2 F 67 16 127/55 L 100 06/28/17 12:00 06/28/17 13:10 06/28/17 13:10 06/28/17 13:10 06/28/17 13:10 Intake and Output: 06/28/17 06/28/17 11:59 23:59 Intake Total 442.4 290.4 Output Total 255 Balance 187.4 290.4 - Medications Medications: Current Medications Famotidine (Pepcid) 20 mg IVP DAILY [facility] Last Admin: 06/28/17 10:17 Dose: 20 mg Fentanyl Citrate 2,500 mcg/ (Sodium Chloride) 250 mls @ 5.39 mls/hr IV .Q24H [facility]; 0.7 MCG/KG/HR PRN Reason: Protocol Last Admin: 06/28/17 05:54 Dose: 1 mcg/kg/hr, 7.71 mls/hr Piperacillin Sod/Tazobactam Sod (Zosyn 2.25 Gm Iv Premix) 2.25 gm in 50 mls @ 100 mls/hr IVPB Q8H [facility] Last Admin: 06/28/17 08:12 Dose: 100 mls/hr Azithromycin 500 mg/ Sodium (Chloride) 250 mls @ 250 mls/hr IVPB DAILY [facility] Last Admin: 06/28/17 10:17 Dose: 250 mls/hr Norepinephrine Bitartrate 4 mg (/ Sodium Chloride) 250 mls @ 18.75 mls/hr IV .[id number] PRN; Protocol; 5 MCG/MIN PRN Reason: TITRATE PER MD ORDER Last Titration: 06/27/17 06:00 Dose: 0 mcg/min, 0 mls/hr Vancomycin/Sodium Chloride (Vancocin) 1 gm in 200 mls @ 133.333 mls/hr IVPB Q24H [facility] Last Admin: 06/27/17 13:06 Dose: 133.333 mls/hr Sodium Chloride (Sodium Chloride 0.9%) 1,000 mls @ 100 mls/hr IV .Q10H [facility] Last Admin: 06/28/17 10:17 Dose: 100 mls/hr Insulin Human Regular (Novolin R) 0 unit SC Q6 [facility] PRN Reason: Protocol Last Admin: 06/28/17 12:00 Dose: Not Given Metoclopramide HCl (Reglan) 5 mg IVP ACHS [facility] Midazolam HCl (Versed Inj) 1 mg IVP Q2H PRN PRN Reason: Agitation - Labs Labs: 06/28/17 06:32 06/28/17 06:32 PT 11.9 SECONDS (9.7-12.2) 06/26/17 02:25 INR 1.1 06/26/17 02:25 APTT 23 SECONDS (21-34) 06/26/17 02:25
[2017-06-28] MEDS ORDERED: Pneumococcal 23-Valent Vaccine IM ONE (14:00)
--- NOTE | 2017-06-28 14:28 | CP.CCUPN ---
<Eliza Coreas - Last Filed: 06/28/17 14:26> CCU Subjective - Physician Review Subjective (Free Text): Patient was seen and examined at bedside in the morning. Patient is alert and less agitated than yesterday. Patient is intubated. Unable to obtain review of systems. 06/28/17 14:26 CCU Objective - Vital Signs / Intake & Output Vital Signs (Last 4 hours): Vital Signs Temp Pulse Resp BP Pulse Ox 06/28/17 13:10 67 16 127/55 L 100 06/28/17 13:00 73 16 100 06/28/17 12:51 67 16 124/59 L 100 06/28/17 12:46 67 16 123/53 L 100 06/28/17 12:41 65 16 132/56 L 100 06/28/17 12:36 64 16 152/56 H 100 06/28/17 12:31 67 16 145/52 L 100 06/28/17 12:26 74 25 H 133/62 98 06/28/17 12:01 75 16 134/57 L 99 06/28/17 12:00 98.2 F 06/28/17 11:44 98.6 F 69 16 117/73 99 06/28/17 11:01 74 16 130/64 100 Intake and Output (Last 8hrs): Intake & Output 06/27/17 06/28/17 06/28/17 22:59 06:59 14:59 Intake Total 61.6 61.6 678.9 Output Total 70 195 80 Balance -8.4 -133.4 598.9 Weight 148 lb 9.465 oz Intake: IV 0 75 Intake, IV Amount 61.6 61.6 603.9 Right Medial Port Femoral 61.6 61.6 53.9 Right Proximal Port 550 Femoral Oral 0 Output: Urine 70 195 80 Urethral (Neff) 70 195 80 Other: # Voids Urethral (Neff) 15 - Physical Exam Head: Positive for: Atraumatic, Normocephalic Extroacular Muscles: Positive for: EOMI Mouth: Positive for: Moist Mucous Membranes Respiratory/Chest: Positive for: Clear to Auscultation. Negative for: Wheezes, Rales, Rhonchi Cardiovascular: Positive for: Normal S1, S2, Tachycardic. Negative for: Bradycardic Abdomen: Positive for: Distention, Normal Bowel Sounds. Negative for: Tenderness Upper Extremity: Positive for: Normal Inspection. Negative for: Edema Lower Extremity: Positive for: Normal Inspection. Negative for: Edema Skin: Positive for: Warm, Dry, Normal Color Psychiatric: Positive for: Alert, Normal Affect, Normal Mood - Medications Active Medications: Active Medications Generic Name Dose Route Start Last Admin Trade Name Freq PRN Reason Stop Dose Admin Famotidine 20 mg 06/26/17 10:00 06/28/17 10:17 Pepcid IVP 20 mg DAILY ASIM Administration Fentanyl Citrate 2,500 mcg/ 250 mls @ 5.39 mls/hr 06/26/17 03:15 06/28/17 05: 54 Sodium Chloride IV 1 mcg/kg/hr .Q24H ASIM 7.71 mls/hr Protocol Administration 0.7 MCG/KG/HR Piperacillin Sod/Tazobactam Sod 2.25 gm in 50 mls @ 100 mls/hr 06/26/17 09:00 06/28/17 08:12 Zosyn 2.25 Gm Iv Premix IVPB 100 mls/hr Q8H ASIM Administration Azithromycin 500 mg/ Sodium 250 mls @ 250 mls/hr 06/26/17 10:00 06/28/17 10: 17 Chloride IVPB 250 mls/hr DAILY ASIM Administration Norepinephrine Bitartrate 4 mg 250 mls @ 18.75 mls/hr 06/26/17 20:23 06:00 / Sodium Chloride IV 0 mcg/min .[id number] PRN 0 mls/hr TITRATE PER MD ORDER Titration Protocol 5 MCG/MIN Vancomycin/Sodium Chloride 1 gm in 200 mls @ 133.333 mls/hr 06/27/17 12:00 13:06 Vancocin IVPB 133.333 mls/hr Q24H ASIM Administration Sodium Chloride 1,000 mls @ 100 mls/hr 06/28/17 09:45 06/28/17 10:17 Sodium Chloride 0.9% IV 100 mls/hr .Q10H ASIM Administration Insulin Human Regular 0 unit 06/27/17 13:02 06/28/17 12:00 Novolin R SC Not Given Q6 ASIM Protocol Metoclopramide HCl 5 mg 06/28/17 16:30 Reglan IVP ACHS ASIM Midazolam HCl 1 mg 06/27/17 18:43 Versed Inj IVP Q2H PRN Agitation - Patient Studies Lab Studies: Microbiology Studies 06/26/17 06:41 MRSA Culture (Admit) - Final Naris MRSA NOT DETECTED Lab Studies 06/28/17 06/28/17 06/28/17 Range/Units 11:40 11:22 10:42 WBC (4.8-10.8) K/uL RBC (3.80-5.20) Mil/uL Hgb (11.0-16.0) g/dL Hct (34.0-47.0) % MCV (81.0-99.0) fL MCH (27.0-31.0) pg MCHC (33.0-37.0) g/dL RDW (11.5-14.5) % Plt Count (130-400) K/uL MPV (7.2-11.7) fL Neut % (Auto) (50.0-75.0) % Lymph % (Auto) (20.0-40.0) % [place] % (Auto) (0.0-10.0) % Eos % (Auto) (0.0-4.0) % Baso % (Auto) (0.0-2.0) % Neut # (1.8-7.0) K/uL Lymph # (1.0-4.3) K/uL [place] # (0.0-0.8) K/uL Eos # (0.0-0.7) K/uL Baso # (0.0-0.2) K/uL Differential Comment Puncture Site pCO2 (35-45) mm/Hg pO2 (80-100) mm/Hg HCO3 (21-28) mmol/L ABG pH (7.35-7.45) ABG Total CO2 (22-28) mmol/L ABG O2 Saturation (95-98) % ABG Base Excess (-2.0-3.0) mmol/L ABG Hemoglobin (11.7-17.4) g/dL ABG Carboxyhemoglobin (0.5-1.5) % POC ABG HHb (Measured) (0.0-5.0) % ABG Methemoglobin (0.0-3.0) % Jasvir Test A-a O2 Difference mm/Hg Respiratory Index Hgb O2 Saturation (95.0-98.0) % Vent Mode Mechanical Rate FiO2 % Tidal Volume PEEP Sodium (132-148) mmol/L Potassium (3.6-5.2) mmol/L Chloride (98-107) mmol/L Carbon Dioxide (22-30) mmol/L Anion Gap (10-20) BUN (7-17) mg/dL Creatinine (0.7-1.2) MG/DL Est GFR ( Amer) Est GFR (Non-Af Amer) POC Glucose (mg/dL) 159 H (65-110) mg/dL Random Glucose (65-105) mg/dL Calcium (8.6-10.4) mg/dl Phosphorus (2.5-4.5) mg/dL Magnesium (1.6-2.3) mg/dL Total Bilirubin (0.2-1.3) mg/dL AST (14-36) U/L ALT (9-52) U/L Alkaline Phosphatase (38-126) U/L Total Protein (6.3-8.3) g/dL Albumin (3.5-5.0) g/dL Globulin (2.2-3.9) gm/dL Albumin/Globulin Ratio (1.0-2.1) Urine Color Yellow (YELLOW) Urine Clarity Hazy (Clear) Urine pH 5.0 (5.0-8.0) Ur Specific Sharon 1.025 (1.003-1.030) Urine Protein 1+ H (NEGATIVE) mg/dL Urine Glucose (UA) Normal (Normal) mg/dL Urine Ketones Negative (NEGATIVE) mg/dL Urine Blood 3+ H (NEGATIVE) Urine Nitrate Negative (NEGATIVE) Urine Bilirubin Negative (NEGATIVE) Urine Urobilinogen Normal (0.2-1.0) mg/dL Ur Leukocyte Esterase Trace (Negative) Reed/uL Urine WBC (Auto) 15 H (0-5) /hpf Urine RBC (Auto) 60 H (0-3) /hpf Ur Squamous Epith Cells 1 (0-5) /hpf Urine Bacteria Rare (<OCC) Vancomycin Trough 20.1 H (5.0-10.0) ug/mL 06/28/17 06/28/17 06/28/17 Range/Units 06:50 06:32 06:32 WBC 21.0 H (4.8-10.8) K/uL RBC 3.07 L (3.80-5.20) Mil/uL Hgb 8.1 L (11.0-16.0) g/dL Hct 26.2 L (34.0-47.0) % MCV 85.5 (81.0-99.0) fL MCH 26.4 L (27.0-31.0) pg MCHC 30.9 L (33.0-37.0) g/dL RDW 17.7 H (11.5-14.5) % Plt Count 152 (130-400) K/uL MPV 10.3 (7.2-11.7) fL Neut % (Auto) 79.0 H (50.0-75.0) % Lymph % (Auto) 13.4 L (20.0-40.0) % [place] % (Auto) 7.3 (0.0-10.0) % Eos % (Auto) 0.0 (0.0-4.0) % Baso % (Auto) 0.3 (0.0-2.0) % Neut # 16.6 H (1.8-7.0) K/uL Lymph # 2.8 (1.0-4.3) K/uL [place] # 1.5 H (0.0-0.8) K/uL Eos # 0.0 (0.0-0.7) K/uL Baso # 0.1 (0.0-0.2) K/uL Differential Comment Puncture Site pCO2 (35-45) mm/Hg pO2 (80-100) mm/Hg HCO3 (21-28) mmol/L ABG pH (7.35-7.45) ABG Total CO2 (22-28) mmol/L ABG O2 Saturation (95-98) % ABG Base Excess (-2.0-3.0) mmol/L ABG Hemoglobin (11.7-17.4) g/dL ABG Carboxyhemoglobin (0.5-1.5) % POC ABG HHb (Measured) (0.0-5.0) % ABG Methemoglobin (0.0-3.0) % Jasvir Test A-a O2 Difference mm/Hg Respiratory Index Hgb O2 Saturation (95.0-98.0) % Vent Mode Mechanical Rate FiO2 % Tidal Volume PEEP Sodium 143 (132-148) mmol/L Potassium 4.8 (3.6-5.2) mmol/L Chloride 112 H (98-107) mmol/L Carbon Dioxide 18 L (22-30) mmol/L Anion Gap 18 (10-20) BUN 48 H (7-17) mg/dL Creatinine 2.6 H (0.7-1.2) MG/DL Est GFR ( Amer) 22 Est GFR (Non-Af Amer) 18 POC Glucose (mg/dL) 147 H (65-110) mg/dL Random Glucose 132 H (65-105) mg/dL Calcium 8.2 L (8.6-10.4) mg/dl Phosphorus 5.3 H (2.5-4.5) mg/dL Magnesium 2.1 (1.6-2.3) mg/dL Total Bilirubin 0.3 (0.2-1.3) mg/dL AST 45 H (14-36) U/L ALT 53 H (9-52) U/L Alkaline Phosphatase 53 (38-126) U/L Total Protein 5.7 L (6.3-8.3) g/dL Albumin 3.1 L (3.5-5.0) g/dL Globulin 2.6 (2.2-3.9) gm/dL Albumin/Globulin Ratio 1.2 (1.0-2.1) Urine Color (YELLOW) Urine Clarity (Clear) Urine pH (5.0-8.0) Ur Specific Sharon (1.003-1.030) Urine Protein (NEGATIVE) mg/dL Urine Glucose (UA) (Normal) mg/dL Urine Ketones (NEGATIVE) mg/dL Urine Blood (NEGATIVE) Urine Nitrate (NEGATIVE) Urine Bilirubin (NEGATIVE) Urine Urobilinogen (0.2-1.0) mg/dL Ur Leukocyte Esterase (Negative) Reed/uL Urine WBC (Auto) (0-5) /hpf Urine RBC (Auto) (0-3) /hpf Ur Squamous Epith Cells (0-5) /hpf Urine Bacteria (<OCC) Vancomycin Trough (5.0-10.0) ug/mL 06/28/17 06/27/17 06/27/17 Range/Units 05:42 23:48 17:42 WBC (4.8-10.8) K/uL RBC (3.80-5.20) Mil/uL Hgb (11.0-16.0) g/dL Hct (34.0-47.0) % MCV (81.0-99.0) fL MCH (27.0-31.0) pg MCHC (33.0-37.0) g/dL RDW (11.5-14.5) % Plt Count (130-400) K/uL MPV (7.2-11.7) fL Neut % (Auto) (50.0-75.0) % Lymph % (Auto) (20.0-40.0) % [place] % (Auto) (0.0-10.0) % Eos % (Auto) (0.0-4.0) % Baso % (Auto) (0.0-2.0) % Neut # (1.8-7.0) K/uL Lymph # (1.0-4.3) K/uL [place] # (0.0-0.8) K/uL Eos # (0.0-0.7) K/uL Baso # (0.0-0.2) K/uL Differential Comment Puncture Site Rr pCO2 37 (35-45) mm/Hg pO2 138 H (80-100) mm/Hg HCO3 17.4 L (21-28) mmol/L ABG pH 7.26 L (7.35-7.45) ABG Total CO2 17.7 L (22-28) mmol/L ABG O2 Saturation 99.7 H (95-98) % ABG Base Excess -9.7 L (-2.0-3.0) mmol/L ABG Hemoglobin 8.3 L (11.7-17.4) g/dL ABG Carboxyhemoglobin 1.4 (0.5-1.5) % POC ABG HHb (Measured) 0.3 (0.0-5.0) % ABG Methemoglobin 1.3 (0.0-3.0) % Jasvir Test Pos A-a O2 Difference 137.0 mm/Hg Respiratory Index 1.0 Hgb O2 Saturation 96.9 (95.0-98.0) % Vent Mode Prvc Mechanical Rate 16 FiO2 45.0 % Tidal Volume 450 PEEP 5 Sodium (132-148) mmol/L Potassium (3.6-5.2) mmol/L Chloride (98-107) mmol/L Carbon Dioxide (22-30) mmol/L Anion Gap (10-20) BUN (7-17) mg/dL Creatinine (0.7-1.2) MG/DL Est GFR ( Amer) Est GFR (Non-Af Amer) POC Glucose (mg/dL) 197 H 225 H (65-110) mg/dL Random Glucose (65-105) mg/dL Calcium (8.6-10.4) mg/dl Phosphorus (2.5-4.5) mg/dL Magnesium (1.6-2.3) mg/dL Total Bilirubin (0.2-1.3) mg/dL AST (14-36) U/L ALT (9-52) U/L Alkaline Phosphatase (38-126) U/L Total Protein (6.3-8.3) g/dL Albumin (3.5-5.0) g/dL Globulin (2.2-3.9) gm/dL Albumin/Globulin Ratio (1.0-2.1) Urine Color (YELLOW) Urine Clarity (Clear) Urine pH (5.0-8.0) Ur Specific Sharon (1.003-1.030) Urine Protein (NEGATIVE) mg/dL Urine Glucose (UA) (Normal) mg/dL Urine Ketones (NEGATIVE) mg/dL Urine Blood (NEGATIVE) Urine Nitrate (NEGATIVE) Urine Bilirubin (NEGATIVE) Urine Urobilinogen (0.2-1.0) mg/dL Ur Leukocyte Esterase (Negative) Reed/uL Urine WBC (Auto) (0-5) /hpf Urine RBC (Auto) (0-3) /hpf Ur Squamous Epith Cells (0-5) /hpf Urine Bacteria (<OCC) Vancomycin Trough (5.0-10.0) ug/mL Laboratory Results - last 24 hr 06/27/17 06/27/17 06/28/17 17:42 23:48 05:42 WBC RBC Hgb Hct MCV MCH MCHC RDW Plt Count MPV Neut % (Auto) Lymph % (Auto) [place] % (Auto) Eos % (Auto) Baso % (Auto) Neut # Lymph # [place] # Eos # Baso # Differential Comment Puncture Site Rr pCO2 37 pO2 138 H HCO3 17.4 L ABG pH 7.26 L ABG Total CO2 17.7 L ABG O2 Saturation 99.7 H ABG Base Excess -9.7 L ABG Hemoglobin 8.3 L ABG Carboxyhemoglobin 1.4 POC ABG HHb (Measured) 0.3 ABG Methemoglobin 1.3 Jasvir Test Pos A-a O2 Difference 137.0 Respiratory Index 1.0 Hgb O2 Saturation 96.9 Vent Mode Prvc Mechanical Rate 16 FiO2 45.0 Tidal Volume 450 PEEP 5 Sodium Potassium Chloride Carbon Dioxide Anion Gap BUN Creatinine Est GFR ( Amer) Est GFR (Non-Af Amer) POC Glucose (mg/dL) 225 H 197 H Random Glucose Calcium Phosphorus Magnesium Total Bilirubin AST ALT Alkaline Phosphatase Total Protein Albumin Globulin Albumin/Globulin Ratio Urine Color Urine Clarity Urine pH Ur Specific Sharon Urine Protein Urine Glucose (UA) Urine Ketones Urine Blood Urine Nitrate Urine Bilirubin Urine Urobilinogen Ur Leukocyte Esterase Urine WBC (Auto) Urine RBC (Auto) Ur Squamous Epith Cells Urine Bacteria Vancomycin Trough 06/28/17 06/28/17 06/28/17 06:32 06:32 06:50 WBC 21.0 H RBC 3.07 L Hgb 8.1 L Hct 26.2 L MCV 85.5 MCH 26.4 L MCHC 30.9 L RDW 17.7 H Plt Count 152 MPV 10.3 Neut % (Auto) 79.0 H Lymph % (Auto) 13.4 L [place] % (Auto) 7.3 Eos % (Auto) 0.0 Baso % (Auto) 0.3 Neut # 16.6 H Lymph # 2.8 [place] # 1.5 H Eos # 0.0 Baso # 0.1 Differential Comment Puncture Site pCO2 pO2 HCO3 ABG pH ABG Total CO2 ABG O2 Saturation ABG Base Excess ABG Hemoglobin ABG Carboxyhemoglobin POC ABG HHb (Measured) ABG Methemoglobin Jasvir Test A-a O2 Difference Respiratory Index Hgb O2 Saturation Vent Mode Mechanical Rate FiO2 Tidal Volume PEEP Sodium 143 Potassium 4.8 Chloride 112 H Carbon Dioxide 18 L Anion Gap 18 BUN 48 H Creatinine 2.6 H Est GFR ( Amer) 22 Est GFR (Non-Af Amer) 18 POC Glucose (mg/dL) 147 H Random Glucose 132 H Calcium 8.2 L Phosphorus 5.3 H Magnesium 2.1 Total Bilirubin 0.3 AST 45 H ALT 53 H Alkaline Phosphatase 53 Total Protein 5.7 L Albumin 3.1 L Globulin 2.6 Albumin/Globulin Ratio 1.2 Urine Color Urine Clarity Urine pH Ur Specific Sharon Urine Protein Urine Glucose (UA) Urine Ketones Urine Blood Urine Nitrate Urine Bilirubin Urine Urobilinogen Ur Leukocyte Esterase Urine WBC (Auto) Urine RBC (Auto) Ur Squamous Epith Cells Urine Bacteria Vancomycin Trough 06/28/17 06/28/17 06/28/17 10:42 11:22 11:40 WBC RBC Hgb Hct MCV MCH MCHC RDW Plt Count MPV Neut % (Auto) Lymph % (Auto) [place] % (Auto) Eos % (Auto) Baso % (Auto) Neut # Lymph # [place] # Eos # Baso # Differential Comment Puncture Site pCO2 pO2 HCO3 ABG pH ABG Total CO2 ABG O2 Saturation ABG Base Excess ABG Hemoglobin ABG Carboxyhemoglobin POC ABG HHb (Measured) ABG Methemoglobin Jasvir Test A-a O2 Difference Respiratory Index Hgb O2 Saturation Vent Mode Mechanical Rate FiO2 Tidal Volume PEEP Sodium Potassium Chloride Carbon Dioxide Anion Gap BUN Creatinine Est GFR ( Amer) Est GFR (Non-Af Amer) POC Glucose (mg/dL) 159 H Random Glucose Calcium Phosphorus Magnesium Total Bilirubin AST ALT Alkaline Phosphatase Total Protein Albumin Globulin Albumin/Globulin Ratio Urine Color Yellow Urine Clarity Hazy Urine pH 5.0 Ur Specific Sharon 1.025 Urine Protein 1+ H Urine Glucose (UA) Normal Urine Ketones Negative Urine Blood 3+ H Urine Nitrate Negative Urine Bilirubin Negative Urine Urobilinogen Normal Ur Leukocyte Esterase Trace Urine WBC (Auto) 15 H Urine RBC (Auto) 60 H Ur Squamous Epith Cells 1 Urine Bacteria Rare Vancomycin Trough 20.1 H Fingerstick Blood Sugar Results: 159 Review of Systems - Review of Systems Systems not reviewed;Unavailable: Intubated Critical Care Progress Note - Vent Settings TIDAL VOLUME:: 450 RESP RATE:: 16 FIO2:: 45 PEEP:: 5 - Nutrition Nutrition: Nutrition Category Date Time Status NPO Diet [DIET] Diets 06/26/17 Breakfast Active Assessment/Plan - Assessment and Plan (Free Text) Assessment: 77 year old female with history of HTN, DM, CAD, presented initially c/o chest pain. Patient had syncopal episode when BLS arrived and became diaphoretic and bradycardic. ALS arrived, patient had episode of vomiting, intubated for airway protection. Patient was severely anemic on presentation (Hgb 6.5), s/p prbc, 8.9. Patient had EDG 06/28/17, showed small hiatal hernia and acute gastritis. Neuro: alert - off sedation - Versed prn for agitation Pulm: - Intubated, vent settings: TV 450, RR 16, PEEP 5, FiO2 45. - Acute respiratory failure with hypoxemia secondary to pulmonary edema - CXR: mild interval decrease in persistent interstitial prominenece which may be infection or edema; b/l hilar prominence may reflect central vascular congestion CV: NSTEMI - Troponin: 0.25, 3.11, 4.03, 2.84 (trending down) - Cardiology consulted: Dr. Arshad - As per Dr. Arshad, cannot do cardiac cath due to elevated Cr. - Off pressors - NS@100ml/hr - Echo: EF 35%; moderately imparied LV systolic function; mild hypokinesis of posterior wall; grade-II pseudonormal diastolic dysfunction; elevated LA pressure; mod dilated LA; Trace AR; Aortic valve mildly sclerotic. Endo: no acute issues - ISS GI: anemic - Hgb 6.5 on admission, transfused 2 units PRBC - GI consulted: Dr. Mendoza, help appreciated - EGD (06/28/17): small hiatal hernia, acute gastritis (biopsied) - EDG and colonoscopy in 02/2017, 5mm polyp resected; congested mucosa in descending colon, non-bleeding external, internal hemorrhoids. - Abd/Pelvic U/S: echogenic liver maybe in setting of hepatic parenchymal disease or fatty infiltration; b/l echogenic renal parenchyma maybe in setting of medical renal disease; 2.3x2.0x2.2cm right renal cyst - Monitor H/H Heme: anemic, s/p PRBC transfusionx2 - Hgb 6.5 on admission, transfused 2 units PRBC - Hgb 8.1 (06/28/17) - Monitor H/H Renal: - Nephrology consulted- Dr. Moreira, help appreciated - Elevated BUN/Cr: worsening, 48/2.6 - UA: 1+ protein, 3+ blood, 15 WBC, 60 RBC ID: Leokocytosis - Continue Azithromycin, Zosyn - Hold Vancomycin-->vanco trough 20.1 Prophylaxis: - DVT: SCDs; anticoagulation C/I- anemic - GI: Pepcid daily <Houston,Paxton S - Last Filed: 06/28/17 17:58> CCU Objective - Vital Signs / Intake & Output Vital Signs (Last 4 hours): Vital Signs Temp Pulse Resp BP Pulse Ox 06/28/17 16:36 69 16 145/65 100 06/28/17 16:00 98.3 F 100 06/28/17 15:36 66 16 149/65 100 06/28/17 15:00 67 16 100 06/28/17 14:25 65 16 145/65 06/28/17 14:10 59 L 16 138/59 L 06/28/17 13:55 63 16 136/62 Intake and Output (Last 8hrs): Intake & Output 06/28/17 06/28/17 06/28/17 06:59 14:59 22:59 Intake Total 61.6 836.6 215.4 Output Total 195 130 20 Balance -133.4 706.6 195.4 Weight 148 lb 9.465 oz Intake: IV 0 75 Intake, IV Amount 61.6 761.6 215.4 Right Medial Port Femoral 61.6 61.6 15.4 Right Proximal Port 700 200 Femoral Output: Urine 195 130 20 Urethral (Neff) 195 130 20 - Medications Active Medications: Active Medications Generic Name Dose Route Start Last Admin Trade Name Hansq PRN Reason Stop Dose Admin Famotidine 20 mg 06/26/17 10:00 06/28/17 10:17 Pepcid IVP 20 mg DAILY SAIM Administration Fentanyl Citrate 2,500 mcg/ 250 mls @ 5.39 mls/hr 06/26/17 03:15 06/28/17 05: 54 Sodium Chloride IV 1 mcg/kg/hr .Q24H ASIM 7.71 mls/hr Protocol Administration 0.7 MCG/KG/HR Piperacillin Sod/Tazobactam Sod 2.25 gm in 50 mls @ 100 mls/hr 06/26/17 09:00 06/28/17 08:12 Zosyn 2.25 Gm Iv Premix IVPB 100 mls/hr Q8H ASIM Administration Azithromycin 500 mg/ Sodium 250 mls @ 250 mls/hr 06/26/17 10:00 06/28/17 10: 17 Chloride IVPB 250 mls/hr DAILY ASIM Administration Norepinephrine Bitartrate 4 mg 250 mls @ 18.75 mls/hr 06/26/17 20:23 06:00 / Sodium Chloride IV 0 mcg/min .[id number] PRN 0 mls/hr TITRATE PER MD ORDER Titration Protocol 5 MCG/MIN Vancomycin/Sodium Chloride 1 gm in 200 mls @ 133.333 mls/hr 06/27/17 12:00 13:00 Vancocin IVPB Not Given Q24H ASIM Sodium Chloride 1,000 mls @ 100 mls/hr 06/28/17 09:45 06/28/17 10:17 Sodium Chloride 0.9% IV 100 mls/hr .Q10H ASIM Administration Insulin Human Regular 0 unit 06/27/17 13:02 06/28/17 12:00 Novolin R SC Not Given Q6 [facility] Protocol Metoclopramide HCl 5 mg 06/28/17 16:30 Reglan IVP ACHS ASIM Midazolam HCl 1 mg 06/27/17 18:43 Versed Inj IVP Q2H PRN Agitation - Patient Studies Lab Studies: Lab Studies 06/28/17 06/28/17 06/28/17 Range/Units 17:36 11:40 11:22 WBC (4.8-10.8) K/uL RBC (3.80-5.20) Mil/uL Hgb (11.0-16.0) g/dL Hct (34.0-47.0) % MCV (81.0-99.0) fL MCH (27.0-31.0) pg MCHC (33.0-37.0) g/dL RDW (11.5-14.5) % Plt Count (130-400) K/uL MPV (7.2-11.7) fL Neut % (Auto) (50.0-75.0) % Lymph % (Auto) (20.0-40.0) % [place] % (Auto) (0.0-10.0) % Eos % (Auto) (0.0-4.0) % Baso % (Auto) (0.0-2.0) % Neut # (1.8-7.0) K/uL Lymph # (1.0-4.3) K/uL [place] # (0.0-0.8) K/uL Eos # (0.0-0.7) K/uL Baso # (0.0-0.2) K/uL Differential Comment Puncture Site pCO2 (35-45) mm/Hg pO2 (80-100) mm/Hg HCO3 (21-28) mmol/L ABG pH (7.35-7.45) ABG Total CO2 (22-28) mmol/L ABG O2 Saturation (95-98) % ABG Base Excess (-2.0-3.0) mmol/L ABG Hemoglobin (11.7-17.4) g/dL ABG Carboxyhemoglobin (0.5-1.5) % POC ABG HHb (Measured) (0.0-5.0) % ABG Methemoglobin (0.0-3.0) % Jasvir Test A-a O2 Difference mm/Hg Respiratory Index Hgb O2 Saturation (95.0-98.0) % Vent Mode Mechanical Rate FiO2 % Tidal Volume PEEP Sodium (132-148) mmol/L Potassium (3.6-5.2) mmol/L Chloride (98-107) mmol/L Carbon Dioxide (22-30) mmol/L Anion Gap (10-20) BUN (7-17) mg/dL Creatinine (0.7-1.2) MG/DL Est GFR ( Amer) Est GFR (Non-Af Amer) POC Glucose (mg/dL) 141 H 159 H (65-110) mg/dL Random Glucose (65-105) mg/dL Calcium (8.6-10.4) mg/dl Phosphorus (2.5-4.5) mg/dL Magnesium (1.6-2.3) mg/dL Total Bilirubin (0.2-1.3) mg/dL AST (14-36) U/L ALT (9-52) U/L Alkaline Phosphatase (38-126) U/L Total Protein (6.3-8.3) g/dL Albumin (3.5-5.0) g/dL Globulin (2.2-3.9) gm/dL Albumin/Globulin Ratio (1.0-2.1) Urine Color (YELLOW) Urine Clarity (Clear) Urine pH (5.0-8.0) Ur Specific Sharon (1.003-1.030) Urine Protein (NEGATIVE) mg/dL Urine Glucose (UA) (Normal) mg/dL Urine Ketones (NEGATIVE) mg/dL Urine Blood (NEGATIVE) Urine Nitrate (NEGATIVE) Urine Bilirubin (NEGATIVE) Urine Urobilinogen (0.2-1.0) mg/dL Ur Leukocyte Esterase (Negative) Reed/uL Urine WBC (Auto) (0-5) /hpf Urine RBC (Auto) (0-3) /hpf Ur Squamous Epith Cells (0-5) /hpf Urine Bacteria (<OCC) Vancomycin Trough 20.1 H (5.0-10.0) ug/mL 06/28/17 06/28/17 06/28/17 Range/Units 10:42 06:50 06:32 WBC (4.8-10.8) K/uL RBC (3.80-5.20) Mil/uL Hgb (11.0-16.0) g/dL Hct (34.0-47.0) % MCV (81.0-99.0) fL MCH (27.0-31.0) pg MCHC (33.0-37.0) g/dL RDW (11.5-14.5) % Plt Count (130-400) K/uL MPV (7.2-11.7) fL Neut % (Auto) (50.0-75.0) % Lymph % (Auto) (20.0-40.0) % [place] % (Auto) (0.0-10.0) % Eos % (Auto) (0.0-4.0) % Baso % (Auto) (0.0-2.0) % Neut # (1.8-7.0) K/uL Lymph # (1.0-4.3) K/uL [place] # (0.0-0.8) K/uL Eos # (0.0-0.7) K/uL Baso # (0.0-0.2) K/uL Differential Comment Puncture Site pCO2 (35-45) mm/Hg pO2 (80-100) mm/Hg HCO3 (21-28) mmol/L ABG pH (7.35-7.45) ABG Total CO2 (22-28) mmol/L ABG O2 Saturation (95-98) % ABG Base Excess (-2.0-3.0) mmol/L ABG Hemoglobin (11.7-17.4) g/dL ABG Carboxyhemoglobin (0.5-1.5) % POC ABG HHb (Measured) (0.0-5.0) % ABG Methemoglobin (0.0-3.0) % Jasvir Test A-a O2 Difference mm/Hg Respiratory Index Hgb O2 Saturation (95.0-98.0) % Vent Mode Mechanical Rate FiO2 % Tidal Volume PEEP Sodium 143 (132-148) mmol/L Potassium 4.8 (3.6-5.2) mmol/L Chloride 112 H (98-107) mmol/L Carbon Dioxide 18 L (22-30) mmol/L Anion Gap 18 (10-20) BUN 48 H (7-17) mg/dL Creatinine 2.6 H (0.7-1.2) MG/DL Est GFR ( Amer) 22 Est GFR (Non-Af Amer) 18 POC Glucose (mg/dL) 147 H (65-110) mg/dL Random Glucose 132 H (65-105) mg/dL Calcium 8.2 L (8.6-10.4) mg/dl Phosphorus 5.3 H (2.5-4.5) mg/dL Magnesium 2.1 (1.6-2.3) mg/dL Total Bilirubin 0.3 (0.2-1.3) mg/dL AST 45 H (14-36) U/L ALT 53 H (9-52) U/L Alkaline Phosphatase 53 (38-126) U/L Total Protein 5.7 L (6.3-8.3) g/dL Albumin 3.1 L (3.5-5.0) g/dL Globulin 2.6 (2.2-3.9) gm/dL Albumin/Globulin Ratio 1.2 (1.0-2.1) Urine Color Yellow (YELLOW) Urine Clarity Hazy (Clear) Urine pH 5.0 (5.0-8.0) Ur Specific Sharon 1.025 (1.003-1.030) Urine Protein 1+ H (NEGATIVE) mg/dL Urine Glucose (UA) Normal (Normal) mg/dL Urine Ketones Negative (NEGATIVE) mg/dL Urine Blood 3+ H (NEGATIVE) Urine Nitrate Negative (NEGATIVE) Urine Bilirubin Negative (NEGATIVE) Urine Urobilinogen Normal (0.2-1.0) mg/dL Ur Leukocyte Esterase Trace (Negative) Reed/uL Urine WBC (Auto) 15 H (0-5) /hpf Urine RBC (Auto) 60 H (0-3) /hpf Ur Squamous Epith Cells 1 (0-5) /hpf Urine Bacteria Rare (<OCC) Vancomycin Trough (5.0-10.0) ug/mL 06/28/17 06/28/17 06/27/17 Range/Units 06:32 05:42 23:48 WBC 21.0 H (4.8-10.8) K/uL RBC 3.07 L (3.80-5.20) Mil/uL Hgb 8.1 L (11.0-16.0) g/dL Hct 26.2 L (34.0-47.0) % MCV 85.5 (81.0-99.0) fL MCH 26.4 L (27.0-31.0) pg MCHC 30.9 L (33.0-37.0) g/dL RDW 17.7 H (11.5-14.5) % Plt Count 152 (130-400) K/uL MPV 10.3 (7.2-11.7) fL Neut % (Auto) 79.0 H (50.0-75.0) % Lymph % (Auto) 13.4 L (20.0-40.0) % [place] % (Auto) 7.3 (0.0-10.0) % Eos % (Auto) 0.0 (0.0-4.0) % Baso % (Auto) 0.3 (0.0-2.0) % Neut # 16.6 H (1.8-7.0) K/uL Lymph # 2.8 (1.0-4.3) K/uL [place] # 1.5 H (0.0-0.8) K/uL Eos # 0.0 (0.0-0.7) K/uL Baso # 0.1 (0.0-0.2) K/uL Differential Comment Puncture Site Rr pCO2 37 (35-45) mm/Hg pO2 138 H (80-100) mm/Hg HCO3 17.4 L (21-28) mmol/L ABG pH 7.26 L (7.35-7.45) ABG Total CO2 17.7 L (22-28) mmol/L ABG O2 Saturation 99.7 H (95-98) % ABG Base Excess -9.7 L (-2.0-3.0) mmol/L ABG Hemoglobin 8.3 L (11.7-17.4) g/dL ABG Carboxyhemoglobin 1.4 (0.5-1.5) % POC ABG HHb (Measured) 0.3 (0.0-5.0) % ABG Methemoglobin 1.3 (0.0-3.0) % Jasvir Test Pos A-a O2 Difference 137.0 mm/Hg Respiratory Index 1.0 Hgb O2 Saturation 96.9 (95.0-98.0) % Vent Mode Prvc Mechanical Rate 16 FiO2 45.0 % Tidal Volume 450 PEEP 5 Sodium (132-148) mmol/L Potassium (3.6-5.2) mmol/L Chloride (98-107) mmol/L Carbon Dioxide (22-30) mmol/L Anion Gap (10-20) BUN (7-17) mg/dL Creatinine (0.7-1.2) MG/DL Est GFR ( Amer) Est GFR (Non-Af Amer) POC Glucose (mg/dL) 197 H (65-110) mg/dL Random Glucose (65-105) mg/dL Calcium (8.6-10.4) mg/dl Phosphorus (2.5-4.5) mg/dL Magnesium (1.6-2.3) mg/dL Total Bilirubin (0.2-1.3) mg/dL AST (14-36) U/L ALT (9-52) U/L Alkaline Phosphatase (38-126) U/L Total Protein (6.3-8.3) g/dL Albumin (3.5-5.0) g/dL Globulin (2.2-3.9) gm/dL Albumin/Globulin Ratio (1.0-2.1) Urine Color (YELLOW) Urine Clarity (Clear) Urine pH (5.0-8.0) Ur Specific Sharon (1.003-1.030) Urine Protein (NEGATIVE) mg/dL Urine Glucose (UA) (Normal) mg/dL Urine Ketones (NEGATIVE) mg/dL Urine Blood (NEGATIVE) Urine Nitrate (NEGATIVE) Urine Bilirubin (NEGATIVE) Urine Urobilinogen (0.2-1.0) mg/dL Ur Leukocyte Esterase (Negative) Reed/uL Urine WBC (Auto) (0-5) /hpf Urine RBC (Auto) (0-3) /hpf Ur Squamous Epith Cells (0-5) /hpf Urine Bacteria (<OCC) Vancomycin Trough (5.0-10.0) ug/mL Laboratory Results - last 24 hr 06/27/17 06/28/17 06/28/17 23:48 05:42 06:32 WBC 21.0 H RBC 3.07 L Hgb 8.1 L Hct 26.2 L MCV 85.5 MCH 26.4 L MCHC 30.9 L RDW 17.7 H Plt Count 152 MPV 10.3 Neut % (Auto) 79.0 H Lymph % (Auto) 13.4 L [place] % (Auto) 7.3 Eos % (Auto) 0.0 Baso % (Auto) 0.3 Neut # 16.6 H Lymph # 2.8 [place] # 1.5 H Eos # 0.0 Baso # 0.1 Differential Comment Puncture Site Rr pCO2 37 pO2 138 H HCO3 17.4 L ABG pH 7.26 L ABG Total CO2 17.7 L ABG O2 Saturation 99.7 H ABG Base Excess -9.7 L ABG Hemoglobin 8.3 L ABG Carboxyhemoglobin 1.4 POC ABG HHb (Measured) 0.3 ABG Methemoglobin 1.3 Jasvir Test Pos A-a O2 Difference 137.0 Respiratory Index 1.0 Hgb O2 Saturation 96.9 Vent Mode Prvc Mechanical Rate 16 FiO2 45.0 Tidal Volume 450 PEEP 5 Sodium Potassium Chloride Carbon Dioxide Anion Gap BUN Creatinine Est GFR ( Amer) Est GFR (Non-Af Amer) POC Glucose (mg/dL) 197 H Random Glucose Calcium Phosphorus Magnesium Total Bilirubin AST ALT Alkaline Phosphatase Total Protein Albumin Globulin Albumin/Globulin Ratio Urine Color Urine Clarity Urine pH Ur Specific Sharon Urine Protein Urine Glucose (UA) Urine Ketones Urine Blood Urine Nitrate Urine Bilirubin Urine Urobilinogen Ur Leukocyte Esterase Urine WBC (Auto) Urine RBC (Auto) Ur Squamous Epith Cells Urine Bacteria Vancomycin Trough 06/28/17 06/28/17 06/28/17 06:32 06:50 10:42 WBC RBC Hgb Hct MCV MCH MCHC RDW Plt Count MPV Neut % (Auto) Lymph % (Auto) [place] % (Auto) Eos % (Auto) Baso % (Auto) Neut # Lymph # [place] # Eos # Baso # Differential Comment Puncture Site pCO2 pO2 HCO3 ABG pH ABG Total CO2 ABG O2 Saturation ABG Base Excess ABG Hemoglobin ABG Carboxyhemoglobin POC ABG HHb (Measured) ABG Methemoglobin Jasvir Test A-a O2 Difference Respiratory Index Hgb O2 Saturation Vent Mode Mechanical Rate FiO2 Tidal Volume PEEP Sodium 143 Potassium 4.8 Chloride 112 H Carbon Dioxide 18 L Anion Gap 18 BUN 48 H Creatinine 2.6 H Est GFR ( Amer) 22 Est GFR (Non-Af Amer) 18 POC Glucose (mg/dL) 147 H Random Glucose 132 H Calcium 8.2 L Phosphorus 5.3 H Magnesium 2.1 Total Bilirubin 0.3 AST 45 H ALT 53 H Alkaline Phosphatase 53 Total Protein 5.7 L Albumin 3.1 L Globulin 2.6 Albumin/Globulin Ratio 1.2 Urine Color Yellow Urine Clarity Hazy Urine pH 5.0 Ur Specific Sharon 1.025 Urine Protein 1+ H Urine Glucose (UA) Normal Urine Ketones Negative Urine Blood 3+ H Urine Nitrate Negative Urine Bilirubin Negative Urine Urobilinogen Normal Ur Leukocyte Esterase Trace Urine WBC (Auto) 15 H Urine RBC (Auto) 60 H Ur Squamous Epith Cells 1 Urine Bacteria Rare Vancomycin Trough 06/28/17 06/28/17 06/28/17 11:22 11:40 17:36 WBC RBC Hgb Hct MCV MCH MCHC RDW Plt Count MPV Neut % (Auto) Lymph % (Auto) [place] % (Auto) Eos % (Auto) Baso % (Auto) Neut # Lymph # [place] # Eos # Baso # Differential Comment Puncture Site pCO2 pO2 HCO3 ABG pH ABG Total CO2 ABG O2 Saturation ABG Base Excess ABG Hemoglobin ABG Carboxyhemoglobin POC ABG HHb (Measured) ABG Methemoglobin Jasvir Test A-a O2 Difference Respiratory Index Hgb O2 Saturation Vent Mode Mechanical Rate FiO2 Tidal Volume PEEP Sodium Potassium Chloride Carbon Dioxide Anion Gap BUN Creatinine Est GFR ( Amer) Est GFR (Non-Af Amer) POC Glucose (mg/dL) 159 H 141 H Random Glucose Calcium Phosphorus Magnesium Total Bilirubin AST ALT Alkaline Phosphatase Total Protein Albumin Globulin Albumin/Globulin Ratio Urine Color Urine Clarity Urine pH Ur Specific Sharon Urine Protein Urine Glucose (UA) Urine Ketones Urine Blood Urine Nitrate Urine Bilirubin Urine Urobilinogen Ur Leukocyte Esterase Urine WBC (Auto) Urine RBC (Auto) Ur Squamous Epith Cells Urine Bacteria Vancomycin Trough 20.1 H Critical Care Progress Note - Nutrition Nutrition: Nutrition Category Date Time Status NPO Diet [DIET] Diets 06/26/17 Breakfast Active Assessment/Plan (1) Acute respiratory failure with hypoxemia Current Visit: Yes Status: Acute (2) Anemia Current Visit: Yes Status: Acute (3) Elevated troponin Current Visit: Yes Status: Acute Attending/Attestation - Attestation I have personally seen and examined this patient.: Yes I have fully participated in the care of the patient.: Yes I have reviewed all pertinent clinical information: Yes Notes (Text): 06/28/17 17:56 Patient seen and examined in the intensive care unit. Case discussed with house staff in the morning rounds. Patient remains intubated on ventilatory support FiO2 45% Bilateral pleural effusion noted on chest x-ray Remains sedated but open eyes to stimuli Status post EGD with no active bleeding Elevated troponins and further management as per cardiology Patient seen by nephrology for elevated BUN and creatinine
--- NOTE | 2017-06-28 19:03 | CARD ---
APPROVED REPORT EKG Measurement Heart [id number] CO 156P64 [id number] <Conclusion> Sinus rhythm with premature atrial complexes with aberrant conduction Incomplete left bundle branch block ST & T wave abnormality, consider lateral ischemia Abnormal ECG
--- NOTE | 2017-06-28 19:03 | CARD ---
APPROVED REPORT EKG Measurement Heart [id number] MA 164P66 [id number] <Conclusion> Normal sinus rhythm Anterior infarct, age undetermined ST & T wave abnormality, consider lateral ischemia Abnormal ECG
[2017-06-28] MEDS ORDERED: Sodium Chloride 0.9% 1,000 ML IV ONE ×2 (20:15→21:20)
[2017-06-29] MEDS: (Novolin R) Insulin Human Regular 100 units/ml vial SC SCH ×4 (00:58→18:48)
[2017-06-29] MEDS: Piperacill/Tazo 2.25gm in Dex 2.25 GM/50 ML BAG IVPB SCH ×3 (01:02→16:04)
[2017-06-29] MEDS: Sodium Chloride 0.9% 1,000 ML IV SCH ×3 (06:00→15:59)
[2017-06-29 06:10] LABS: BASO # 0.1 K/uL (0.0-0.2); BASO % 0.4 % (0.0-2.0); EOS # 0.3 K/uL (0.0-0.7); EOS % 2.2 % (0.0-4.0); HEMATOCRIT 25.7 % (34.0-47.0); LYMPH % 19.5 % (20.0-40.0); MEAN CORPUSCULAR HEMOGLOBIN 26.2 pg (27.0-31.0); MEAN CORPUSCULAR HGB CONC 30.8 g/dL (33.0-37.0); MEAN PLATELET VOLUME 10.4 fL (7.2-11.7); MONO # 1.2 K/uL (0.0-0.8); MONO % 7.8 % (0.0-10.0); NRBC % 0.2 % (0.0-2.0); RED CELL DISTRIBUTION WIDTH 17.6 % (11.5-14.5); WHITE BLOOD COUNT 15.1 K/uL (4.8-10.8)
[2017-06-29 06:27] LABS: ALB/GLOB RATIO 1.1 (1.0-2.1); BILIRUBIN,TOTAL 0.4 mg/dL (0.2-1.3); CALCIUM 7.9 mg/dl (8.6-10.4); MAGNESIUM 2.1 mg/dL (1.6-2.3); PHOSPHOROUS 4.1 mg/dL (2.5-4.5); POTASSIUM 4.1 mmol/L (3.6-5.2); TOTAL PROTEIN 5.4 g/dL (6.3-8.3)
[2017-06-29 06:31] LABS: ABG ALLEN TEST POS; ABG MECHANICAL RATE 16; ARTERIAL BLOOD GAS MODE PRVC; ARTERIAL BLOOD HGB O2 SAT 97.5 % (95.0-98.0); ATERIAL BLOOD GAS PEEP 5; CARBOXYHEMOGLOBIN 1.8 % (0.5-1.5); DRAW SITE L RAD; HHB 0.1 % (0.0-5.0); METHEMOGLOBIN 0.7 % (0.0-3.0)
[2017-06-29] MEDS: Azithromycin 500 MG in Sodium Chloride 0.9% 250 ML IVPB SCH (09:35)
--- NOTE | 2017-06-29 10:12 | RAD ---
HISTORY: intubated COMPARISON: Portable chest 06/26/2017 FINDINGS: LUNGS: Exam appears somewhat underpenetrated with mild prominence of the hilar vascular markings questioned as well as right medial basilar atelectasis the catheters overlapping this area are obscuring it somewhat. No definite left-sided infiltrate. Endotracheal tube is unchanged in position as well as nasogastric tube. PLEURA: No significant pleural effusion identified, no pneumothorax apparent. CARDIOVASCULAR: Cardiac silhouette appears stable. OSSEOUS STRUCTURES: No significant abnormalities. VISUALIZED UPPER ABDOMEN: Normal. OTHER FINDINGS: None. IMPRESSION: 1. Under penetration may be accentuating the hilar vascular markings somewhat with an element of CHF not completely excluded. Further clinical correlation advised. 2. Tubes and catheters overlying the right base obscure it somewhat. Limited atelectasis or infiltrate in the medial right base is difficult to completely exclude in the interval. Remaining lung dejesus appear clear of infiltrate or effusion.
--- NOTE | 2017-06-29 13:54 | CP.PCM.PN ---
Subjective - Date & Time of Evaluation Date of Evaluation: 06/29/17 Time of Evaluation: 13:52 - Subjective Subjective: ON VENT VS STABLE CR 2.3 HIGH RISK CATH D/W FAMILY THE RISKS OF CARDIAC CATH DUE TO RENAL FAILURE CONT CONSERVATIVE TREAT MENT Objective - Vital Signs/Intake and Output Vital Signs (last 24 hours): Temp Pulse Resp BP Pulse Ox 98.6 F 84 15 155/67 H 99 06/29/17 12:00 06/29/17 06:00 06/29/17 06:00 06/29/17 05:36 06/29/17 06:00 Intake and Output: 06/29/17 06/29/17 11:59 23:59 Intake Total 773.9 Output Total 205 Balance 568.9 - Medications Medications: Current Medications Famotidine (Pepcid) 20 mg IVP DAILY [facility] Last Admin: 06/29/17 09:34 Dose: 20 mg Fentanyl Citrate 2,500 mcg/ (Sodium Chloride) 250 mls @ 5.39 mls/hr IV .Q24H ASIM; 0.7 MCG/KG/HR PRN Reason: Protocol Last Admin: 06/29/17 07:30 Dose: 1 mcg/kg/hr, 7.71 mls/hr Piperacillin Sod/Tazobactam Sod (Zosyn 2.25 Gm Iv Premix) 2.25 gm in 50 mls @ 100 mls/hr IVPB Q8H [facility] Last Admin: 06/29/17 12:16 Dose: 100 mls/hr Azithromycin 500 mg/ Sodium (Chloride) 250 mls @ 250 mls/hr IVPB DAILY [facility] Last Admin: 06/29/17 09:35 Dose: 250 mls/hr Norepinephrine Bitartrate 4 mg (/ Sodium Chloride) 250 mls @ 18.75 mls/hr IV .[id number] PRN; Protocol; 5 MCG/MIN PRN Reason: TITRATE PER MD ORDER Last Titration: 06/27/17 06:00 Dose: 0 mcg/min, 0 mls/hr Vancomycin/Sodium Chloride (Vancocin) 1 gm in 200 mls @ 133.333 mls/hr IVPB Q24H [facility] Last Admin: 06/28/17 13:00 Dose: Not Given Sodium Chloride (Sodium Chloride 0.9%) 1,000 mls @ 100 mls/hr IV .Q10H [facility] Last Admin: 06/29/17 09:32 Dose: 100 mls/hr Insulin Human Regular (Novolin R) 0 unit SC Q6 ASIM PRN Reason: Protocol Last Admin: 06/29/17 12:17 Dose: Not Given Metoclopramide HCl (Reglan) 5 mg IVP ACHS ASIM Last Admin: 06/29/17 12:16 Dose: 5 mg Midazolam HCl (Versed Inj) 1 mg IVP Q2H PRN PRN Reason: Agitation - Labs Labs: 06/29/17 05:59 06/29/17 05:59 PT 11.9 SECONDS (9.7-12.2) 06/26/17 02:25 INR 1.1 06/26/17 02:25 APTT 23 SECONDS (21-34) 06/26/17 02:25
--- NOTE | 2017-06-29 16:06 | CP.PCM.PN ---
Subjective - Date & Time of Evaluation Date of Evaluation: 06/29/17 Time of Evaluation: 16:04 - Subjective Subjective: extubated son at bedside weak no tube feeds still Objective - Vital Signs/Intake and Output Vital Signs (last 24 hours): Temp Pulse Resp BP Pulse Ox 98.6 F 84 15 155/67 H 99 06/29/17 12:00 06/29/17 06:00 06/29/17 06:00 06/29/17 05:36 06/29/17 06:00 Intake and Output: 06/29/17 06/29/17 06:59 18:59 Intake Total 1412.4 0 Output Total 380 Balance 1032.4 0 - Medications Medications: Current Medications Famotidine (Pepcid) 20 mg IVP DAILY [facility] Last Admin: 06/29/17 09:34 Dose: 20 mg Fentanyl Citrate 2,500 mcg/ (Sodium Chloride) 250 mls @ 5.39 mls/hr IV .Q24H ASIM; 0.7 MCG/KG/HR PRN Reason: Protocol Last Admin: 06/29/17 07:30 Dose: 1 mcg/kg/hr, 7.71 mls/hr Piperacillin Sod/Tazobactam Sod (Zosyn 2.25 Gm Iv Premix) 2.25 gm in 50 mls @ 100 mls/hr IVPB Q8H [facility] Last Admin: 06/29/17 12:16 Dose: 100 mls/hr Azithromycin 500 mg/ Sodium (Chloride) 250 mls @ 250 mls/hr IVPB DAILY [facility] Last Admin: 06/29/17 09:35 Dose: 250 mls/hr Norepinephrine Bitartrate 4 mg (/ Sodium Chloride) 250 mls @ 18.75 mls/hr IV .[id number] PRN; Protocol; 5 MCG/MIN PRN Reason: TITRATE PER MD ORDER Last Titration: 06/27/17 06:00 Dose: 0 mcg/min, 0 mls/hr Vancomycin/Sodium Chloride (Vancocin) 1 gm in 200 mls @ 133.333 mls/hr IVPB Q24H [facility] Last Admin: 06/28/17 13:00 Dose: Not Given Sodium Chloride (Sodium Chloride 0.9%) 1,000 mls @ 100 mls/hr IV .Q10H [facility] Last Admin: 06/29/17 15:59 Dose: Not Given Insulin Human Regular (Novolin R) 0 unit SC Q6 ASIM PRN Reason: Protocol Last Admin: 06/29/17 12:17 Dose: Not Given Metoclopramide HCl (Reglan) 5 mg IVP ACHS [facility] Last Admin: 06/29/17 15:58 Dose: 5 mg Midazolam HCl (Versed Inj) 1 mg IVP Q2H PRN PRN Reason: Agitation Ondansetron HCl (Zofran Inj) 4 mg IVP Q6H PRN PRN Reason: Nausea/Vomiting - Labs Labs: 06/29/17 05:59 06/29/17 05:59 PT 11.9 SECONDS (9.7-12.2) 06/26/17 02:25 INR 1.1 06/26/17 02:25 APTT 23 SECONDS (21-34) 06/26/17 02:25 - Constitutional Appears: No Acute Distress, Chronically Ill - Eye Exam Eye Exam: EOMI - ENT Exam ENT Exam: Mucous Membranes Moist - Neck Exam Neck Exam: Full ROM. absent: Lymphadenopathy - Respiratory Exam Respiratory Exam: Decreased Breath Sounds. absent: Accessory Muscle Use - Cardiovascular Exam Cardiovascular Exam: REGULAR RHYTHM - GI/Abdominal Exam GI & Abdominal Exam: Soft. absent: Tenderness - Neurological Exam Neurological Exam: Alert - Psychiatric Exam Psychiatric exam: absent: Agitated Assessment and Plan - Assessment and Plan (Free Text) Assessment: probable ckd, renal us with echogenicity s/p hypoxic respiratory failure of unclear etio continue card/pul f/u avoid nephrotoxic agents will follow
--- NOTE | 2017-06-29 16:38 | CP.CCUPN ---
<Eliza Coreas - Last Filed: 06/29/17 16:21> CCU Subjective - Physician Review Subjective (Free Text): Patient was seen and examined at bedside in the morning. During the exam, patient was intubated and alert. Unable to obtain review of systems. 06/29/17 16:39 CCU Objective - Vital Signs / Intake & Output Intake and Output (Last 8hrs): Intake & Output 06/29/17 06/29/17 06/29/17 06:59 14:59 22:59 Intake Total 901.6 0 Output Total 235 Balance 666.6 0 Weight 146 lb Intake: IV 0 Intake, IV Amount 861.6 Right Medial Port Femoral 61.6 Right Proximal Port 800 Femoral Tube Feeding 40 Output: Urine 235 Urethral (Neff) 235 - Physical Exam Head: Positive for: Atraumatic, Normocephalic Extroacular Muscles: Positive for: EOMI Mouth: Positive for: Moist Mucous Membranes Respiratory/Chest: Positive for: Clear to Auscultation. Negative for: Wheezes, Rales, Rhonchi Cardiovascular: Positive for: Normal S1, S2, Tachycardic. Negative for: Bradycardic Abdomen: Positive for: Distention, Normal Bowel Sounds. Negative for: Tenderness Upper Extremity: Positive for: Normal Inspection. Negative for: Edema Lower Extremity: Positive for: Normal Inspection. Negative for: Edema Skin: Positive for: Warm, Dry, Normal Color Psychiatric: Positive for: Alert, Normal Affect, Normal Mood - Medications Active Medications: Active Medications Generic Name Dose Route Start Last Admin Trade Name Freq PRN Reason Stop Dose Admin Famotidine 20 mg 06/26/17 10:00 06/29/17 09:34 Pepcid IVP 20 mg DAILY ASIM Administration Fentanyl Citrate 2,500 mcg/ 250 mls @ 5.39 mls/hr 06/26/17 03:15 06/29/17 07: 30 Sodium Chloride IV 1 mcg/kg/hr .Q24H ASIM 7.71 mls/hr Protocol Administration 0.7 MCG/KG/HR Piperacillin Sod/Tazobactam Sod 2.25 gm in 50 mls @ 100 mls/hr 06/26/17 09:00 06/29/17 16:04 Zosyn 2.25 Gm Iv Premix IVPB 100 mls/hr Q8H ASIM Administration Azithromycin 500 mg/ Sodium 250 mls @ 250 mls/hr 06/26/17 10:00 06/29/17 09: 35 Chloride IVPB 250 mls/hr DAILY ASIM Administration Norepinephrine Bitartrate 4 mg 250 mls @ 18.75 mls/hr 06/26/17 20:23 06:00 / Sodium Chloride IV 0 mcg/min .[id number] PRN 0 mls/hr TITRATE PER MD ORDER Titration Protocol 5 MCG/MIN Vancomycin/Sodium Chloride 1 gm in 200 mls @ 133.333 mls/hr 06/27/17 12:00 13:00 Vancocin IVPB Not Given Q24H ASIM Sodium Chloride 1,000 mls @ 100 mls/hr 06/28/17 09:45 06/29/17 15:59 Sodium Chloride 0.9% IV Not Given .Q10H ASIM Insulin Human Regular 0 unit 06/27/17 13:02 06/29/17 12:17 Novolin R SC Not Given Q6 [facility] Protocol Metoclopramide HCl 5 mg 06/28/17 16:30 06/29/17 15:58 Reglan IVP 5 mg ACHS ASIM Administration Midazolam HCl 1 mg 06/27/17 18:43 Versed Inj IVP Q2H PRN Agitation Ondansetron HCl 4 mg 06/29/17 14:17 Zofran Inj IVP Q6H PRN Nausea/Vomiting - Patient Studies Lab Studies: Lab Studies 06/29/17 06/29/17 06/29/17 Range/Units 11:33 10:42 06:15 WBC (4.8-10.8) K/uL RBC (3.80-5.20) Mil/uL Hgb (11.0-16.0) g/dL Hct (34.0-47.0) % MCV (81.0-99.0) fL MCH (27.0-31.0) pg MCHC (33.0-37.0) g/dL RDW (11.5-14.5) % Plt Count (130-400) K/uL MPV (7.2-11.7) fL Neut % (Auto) (50.0-75.0) % Lymph % (Auto) (20.0-40.0) % Kent % (Auto) (0.0-10.0) % Eos % (Auto) (0.0-4.0) % Baso % (Auto) (0.0-2.0) % Neut # (1.8-7.0) K/uL Lymph # (1.0-4.3) K/uL Kent # (0.0-0.8) K/uL Eos # (0.0-0.7) K/uL Baso # (0.0-0.2) K/uL Puncture Site pCO2 (35-45) mm/Hg pO2 (80-100) mm/Hg HCO3 (21-28) mmol/L ABG pH (7.35-7.45) ABG Total CO2 (22-28) mmol/L ABG O2 Saturation (95-98) % ABG Base Excess (-2.0-3.0) mmol/L ABG Hemoglobin (11.7-17.4) g/dL ABG Carboxyhemoglobin (0.5-1.5) % POC ABG HHb (Measured) (0.0-5.0) % ABG Methemoglobin (0.0-3.0) % Jasvir Test A-a O2 Difference mm/Hg Respiratory Index Hgb O2 Saturation (95.0-98.0) % Vent Mode Mechanical Rate FiO2 % Tidal Volume PEEP Sodium (132-148) mmol/L Potassium (3.6-5.2) mmol/L Chloride (98-107) mmol/L Carbon Dioxide (22-30) mmol/L Anion Gap (10-20) BUN (7-17) mg/dL Creatinine (0.7-1.2) MG/DL Est GFR ( Amer) Est GFR (Non-Af Amer) POC Glucose (mg/dL) 136 H 131 H (65-110) mg/dL Random Glucose (65-105) mg/dL Calcium (8.6-10.4) mg/dl Phosphorus (2.5-4.5) mg/dL Magnesium (1.6-2.3) mg/dL Total Bilirubin (0.2-1.3) mg/dL AST (14-36) U/L ALT (9-52) U/L Alkaline Phosphatase (38-126) U/L Total Protein (6.3-8.3) g/dL Albumin (3.5-5.0) g/dL Globulin (2.2-3.9) gm/dL Albumin/Globulin Ratio (1.0-2.1) Procalcitonin 0.56 H (0.19-0.49) NG/ML 06/29/17 06/29/17 06/29/17 Range/Units 05:59 05:59 05:10 WBC 15.1 H (4.8-10.8) K/uL RBC 3.02 L (3.80-5.20) Mil/uL Hgb 7.9 L (11.0-16.0) g/dL Hct 25.7 L (34.0-47.0) % MCV 85.0 (81.0-99.0) fL MCH 26.2 L (27.0-31.0) pg MCHC 30.8 L (33.0-37.0) g/dL RDW 17.6 H (11.5-14.5) % Plt Count 135 (130-400) K/uL MPV 10.4 (7.2-11.7) fL Neut % (Auto) 70.1 (50.0-75.0) % Lymph % (Auto) 19.5 L (20.0-40.0) % Kent % (Auto) 7.8 (0.0-10.0) % Eos % (Auto) 2.2 (0.0-4.0) % Baso % (Auto) 0.4 (0.0-2.0) % Neut # 10.6 H (1.8-7.0) K/uL Lymph # 3.0 (1.0-4.3) K/uL Kent # 1.2 H (0.0-0.8) K/uL Eos # 0.3 (0.0-0.7) K/uL Baso # 0.1 (0.0-0.2) K/uL Puncture Site L rad pCO2 35 (35-45) mm/Hg pO2 104 H (80-100) mm/Hg HCO3 18.4 L (21-28) mmol/L ABG pH 7.30 L (7.35-7.45) ABG Total CO2 18.3 L (22-28) mmol/L ABG O2 Saturation 99.9 H (95-98) % ABG Base Excess -8.4 L (-2.0-3.0) mmol/L ABG Hemoglobin 7.8 L (11.7-17.4) g/dL ABG Carboxyhemoglobin 1.8 H (0.5-1.5) % POC ABG HHb (Measured) 0.1 (0.0-5.0) % ABG Methemoglobin 0.7 (0.0-3.0) % Jasvir Test Pos A-a O2 Difference 173.0 mm/Hg Respiratory Index 1.7 Hgb O2 Saturation 97.5 (95.0-98.0) % Vent Mode Prvc Mechanical Rate 16 FiO2 45.0 % Tidal Volume 450 PEEP 5 Sodium 144 (132-148) mmol/L Potassium 4.1 (3.6-5.2) mmol/L Chloride 115 H (98-107) mmol/L Carbon Dioxide 18 L (22-30) mmol/L Anion Gap 15 (10-20) BUN 49 H (7-17) mg/dL Creatinine 2.3 H (0.7-1.2) MG/DL Est GFR ( Amer) 25 Est GFR (Non-Af Amer) 21 POC Glucose (mg/dL) (65-110) mg/dL Random Glucose 99 (65-105) mg/dL Calcium 7.9 L (8.6-10.4) mg/dl Phosphorus 4.1 (2.5-4.5) mg/dL Magnesium 2.1 (1.6-2.3) mg/dL Total Bilirubin 0.4 (0.2-1.3) mg/dL AST 38 H (14-36) U/L ALT 48 (9-52) U/L Alkaline Phosphatase 69 (38-126) U/L Total Protein 5.4 L (6.3-8.3) g/dL Albumin 2.8 L (3.5-5.0) g/dL Globulin 2.6 (2.2-3.9) gm/dL Albumin/Globulin Ratio 1.1 (1.0-2.1) Procalcitonin (0.19-0.49) NG/ML 06/28/17 06/28/17 Range/Units 23:35 17:36 WBC (4.8-10.8) K/uL RBC (3.80-5.20) Mil/uL Hgb (11.0-16.0) g/dL Hct (34.0-47.0) % MCV (81.0-99.0) fL MCH (27.0-31.0) pg MCHC (33.0-37.0) g/dL RDW (11.5-14.5) % Plt Count (130-400) K/uL MPV (7.2-11.7) fL Neut % (Auto) (50.0-75.0) % Lymph % (Auto) (20.0-40.0) % Kent % (Auto) (0.0-10.0) % Eos % (Auto) (0.0-4.0) % Baso % (Auto) (0.0-2.0) % Neut # (1.8-7.0) K/uL Lymph # (1.0-4.3) K/uL Kent # (0.0-0.8) K/uL Eos # (0.0-0.7) K/uL Baso # (0.0-0.2) K/uL Puncture Site pCO2 (35-45) mm/Hg pO2 (80-100) mm/Hg HCO3 (21-28) mmol/L ABG pH (7.35-7.45) ABG Total CO2 (22-28) mmol/L ABG O2 Saturation (95-98) % ABG Base Excess (-2.0-3.0) mmol/L ABG Hemoglobin (11.7-17.4) g/dL ABG Carboxyhemoglobin (0.5-1.5) % POC ABG HHb (Measured) (0.0-5.0) % ABG Methemoglobin (0.0-3.0) % Jasvir Test A-a O2 Difference mm/Hg Respiratory Index Hgb O2 Saturation (95.0-98.0) % Vent Mode Mechanical Rate FiO2 % Tidal Volume PEEP Sodium (132-148) mmol/L Potassium (3.6-5.2) mmol/L Chloride (98-107) mmol/L Carbon Dioxide (22-30) mmol/L Anion Gap (10-20) BUN (7-17) mg/dL Creatinine (0.7-1.2) MG/DL Est GFR ( Amer) Est GFR (Non-Af Amer) POC Glucose (mg/dL) 118 H 141 H (65-110) mg/dL Random Glucose (65-105) mg/dL Calcium (8.6-10.4) mg/dl Phosphorus (2.5-4.5) mg/dL Magnesium (1.6-2.3) mg/dL Total Bilirubin (0.2-1.3) mg/dL AST (14-36) U/L ALT (9-52) U/L Alkaline Phosphatase (38-126) U/L Total Protein (6.3-8.3) g/dL Albumin (3.5-5.0) g/dL Globulin (2.2-3.9) gm/dL Albumin/Globulin Ratio (1.0-2.1) Procalcitonin (0.19-0.49) NG/ML Laboratory Results - last 24 hr 06/28/17 06/28/17 06/29/17 17:36 23:35 05:10 WBC RBC Hgb Hct MCV MCH MCHC RDW Plt Count MPV Neut % (Auto) Lymph % (Auto) Kent % (Auto) Eos % (Auto) Baso % (Auto) Neut # Lymph # Kent # Eos # Baso # Puncture Site L rad pCO2 35 pO2 104 H HCO3 18.4 L ABG pH 7.30 L ABG Total CO2 18.3 L ABG O2 Saturation 99.9 H ABG Base Excess -8.4 L ABG Hemoglobin 7.8 L ABG Carboxyhemoglobin 1.8 H POC ABG HHb (Measured) 0.1 ABG Methemoglobin 0.7 Jasvir Test Pos A-a O2 Difference 173.0 Respiratory Index 1.7 Hgb O2 Saturation 97.5 Vent Mode Prvc Mechanical Rate 16 FiO2 45.0 Tidal Volume 450 PEEP 5 Sodium Potassium Chloride Carbon Dioxide Anion Gap BUN Creatinine Est GFR ( Amer) Est GFR (Non-Af Amer) POC Glucose (mg/dL) 141 H 118 H Random Glucose Calcium Phosphorus Magnesium Total Bilirubin AST ALT Alkaline Phosphatase Total Protein Albumin Globulin Albumin/Globulin Ratio Procalcitonin 06/29/17 06/29/17 06/29/17 05:59 05:59 06:15 WBC 15.1 H RBC 3.02 L Hgb 7.9 L Hct 25.7 L MCV 85.0 MCH 26.2 L MCHC 30.8 L RDW 17.6 H Plt Count 135 MPV 10.4 Neut % (Auto) 70.1 Lymph % (Auto) 19.5 L Kent % (Auto) 7.8 Eos % (Auto) 2.2 Baso % (Auto) 0.4 Neut # 10.6 H Lymph # 3.0 Kent # 1.2 H Eos # 0.3 Baso # 0.1 Puncture Site pCO2 pO2 HCO3 ABG pH ABG Total CO2 ABG O2 Saturation ABG Base Excess ABG Hemoglobin ABG Carboxyhemoglobin POC ABG HHb (Measured) ABG Methemoglobin Jasvir Test A-a O2 Difference Respiratory Index Hgb O2 Saturation Vent Mode Mechanical Rate FiO2 Tidal Volume PEEP Sodium 144 Potassium 4.1 Chloride 115 H Carbon Dioxide 18 L Anion Gap 15 BUN 49 H Creatinine 2.3 H Est GFR ( Amer) 25 Est GFR (Non-Af Amer) 21 POC Glucose (mg/dL) 131 H Random Glucose 99 Calcium 7.9 L Phosphorus 4.1 Magnesium 2.1 Total Bilirubin 0.4 AST 38 H ALT 48 Alkaline Phosphatase 69 Total Protein 5.4 L Albumin 2.8 L Globulin 2.6 Albumin/Globulin Ratio 1.1 Procalcitonin 06/29/17 06/29/17 10:42 11:33 WBC RBC Hgb Hct MCV MCH MCHC RDW Plt Count MPV Neut % (Auto) Lymph % (Auto) Kent % (Auto) Eos % (Auto) Baso % (Auto) Neut # Lymph # Kent # Eos # Baso # Puncture Site pCO2 pO2 HCO3 ABG pH ABG Total CO2 ABG O2 Saturation ABG Base Excess ABG Hemoglobin ABG Carboxyhemoglobin POC ABG HHb (Measured) ABG Methemoglobin Jasvir Test A-a O2 Difference Respiratory Index Hgb O2 Saturation Vent Mode Mechanical Rate FiO2 Tidal Volume PEEP Sodium Potassium Chloride Carbon Dioxide Anion Gap BUN Creatinine Est GFR ( Amer) Est GFR (Non-Af Amer) POC Glucose (mg/dL) 136 H Random Glucose Calcium Phosphorus Magnesium Total Bilirubin AST ALT Alkaline Phosphatase Total Protein Albumin Globulin Albumin/Globulin Ratio Procalcitonin 0.56 H Fingerstick Blood Sugar Results: 136 Review of Systems - Review of Systems Systems not reviewed;Unavailable: Intubated Assessment/Plan - Assessment and Plan (Free Text) Assessment: 77 year old female with history of HTN, DM, CAD, presented initially c/o chest pain. Patient had syncopal episode when BLS arrived and became diaphoretic and bradycardic. ALS arrived, patient had episode of vomiting, intubated for airway protection. Patient was severely anemic on presentation (Hgb 6.5), s/p prbc, 8.9. Patient had EDG 06/28/17, showed small hiatal hernia and acute gastritis. Patient was placed on CPAP trial and then extubated on 06/29/17. Neuro: alert - off sedation Pulm: - Patient was extubated on 06/29/17 - Acute respiratory failure with hypoxemia secondary to pulmonary edema - CXR: mild interval decrease in persistent interstitial prominence which may be infection or edema; b/l hilar prominence may reflect central vascular congestion CV: NSTEMI - Troponin: 0.25, 3.11, 4.03, 2.84 (trending down) - Cardiology consulted: Dr. Arshad - As per Dr. Arshad, cannot do cardiac cath due to elevated Cr. - Off pressors - NS@100ml/hr - Echo: EF 35%; moderately impaired LV systolic function; mild hypokinesis of posterior wall; grade-II pseudonormal diastolic dysfunction; elevated LA pressure; mod dilated LA; Trace AR; Aortic valve mildly sclerotic. Endo: no acute issues - ISS GI: anemic - Hgb 6.5 on admission, transfused 2 units PRBC - GI consulted: Dr. Mendoza, help appreciated - EGD (06/28/17): small hiatal hernia, acute gastritis (biopsied) - EDG and colonoscopy in 02/2017, 5mm polyp resected; congested mucosa in descending colon, non-bleeding external, internal hemorrhoids. - Abd/Pelvic U/S: echogenic liver maybe in setting of hepatic parenchymal disease or fatty infiltration; b/l echogenic renal parenchyma maybe in setting of medical renal disease; 2.3x2.0x2.2cm right renal cyst - Monitor H/H Heme: anemic, s/p PRBC transfusionx2 - Hgb 6.5 on admission, transfused 2 units PRBC - Hgb 8.1 (06/28/17) - Monitor H/H Renal: - Nephrology consulted- Dr. Moreira, help appreciated - Elevated BUN/Cr: worsening, 49/2.3 - UA: 1+ protein, 3+ blood, 15 WBC, 60 RBC ID: Leokocytosis - Continue Azithromycin, Zosyn - Hold Vancomycin-->vanco trough 20.1 Prophylaxis: - DVT: SCDs; anticoagulation C/I- anemic - GI: Pepcid daily <Paxton Conrad - Last Filed: 06/29/17 17:38> CCU Objective - Vital Signs / Intake & Output Vital Signs (Last 4 hours): Vital Signs Pulse Resp BP Pulse Ox 06/29/17 17:32 97 H 06/29/17 17:00 98 H 20 96 06/29/17 16:36 99 H 21 135/59 L 97 06/29/17 16:00 86 17 96 06/29/17 15:36 88 14 141/64 98 06/29/17 15:00 96 H 17 97 06/29/17 14:36 102 H 20 152/65 H 95 06/29/17 14:00 95 H 17 98 Intake and Output (Last 8hrs): Intake & Output 06/29/17 06/29/17 06/29/17 06:59 14:59 22:59 Intake Total 901.6 800 300 Output Total 235 500 150 Balance 666.6 300 150 Weight 146 lb Intake: IV 0 Intake, IV Amount 861.6 800 300 Right Medial Port Femoral 61.6 0 Right Proximal Port 800 800 300 Femoral Tube Feeding 40 Output: Urine 235 500 150 Urethral (Neff) 235 500 150 - Medications Active Medications: Active Medications Generic Name Dose Route Start Last Admin Trade Name Freq PRN Reason Stop Dose Admin Famotidine 20 mg 06/26/17 10:00 06/29/17 09:34 Pepcid IVP 20 mg DAILY ASIM Administration Fentanyl Citrate 2,500 mcg/ 250 mls @ 5.39 mls/hr 06/26/17 03:15 06/29/17 07: 30 Sodium Chloride IV 1 mcg/kg/hr .Q24H ASIM 7.71 mls/hr Protocol Administration 0.7 MCG/KG/HR Piperacillin Sod/Tazobactam Sod 2.25 gm in 50 mls @ 100 mls/hr 06/26/17 09:00 06/29/17 16:04 Zosyn 2.25 Gm Iv Premix IVPB 100 mls/hr Q8H ASIM Administration Azithromycin 500 mg/ Sodium 250 mls @ 250 mls/hr 06/26/17 10:00 06/29/17 09: 35 Chloride IVPB 250 mls/hr DAILY ASIM Administration Norepinephrine Bitartrate 4 mg 250 mls @ 18.75 mls/hr 06/26/17 20:23 06:00 / Sodium Chloride IV 0 mcg/min .[id number] PRN 0 mls/hr TITRATE PER MD ORDER Titration Protocol 5 MCG/MIN Vancomycin/Sodium Chloride 1 gm in 200 mls @ 133.333 mls/hr 06/27/17 12:00 13:00 Vancocin IVPB Not Given Q24H ASIM Sodium Chloride 1,000 mls @ 100 mls/hr 06/28/17 09:45 06/29/17 15:59 Sodium Chloride 0.9% IV Not Given .Q10H ASIM Insulin Human Regular 0 unit 06/27/17 13:02 06/29/17 12:17 Novolin R SC Not Given Q6 [facility] Protocol Metoclopramide HCl 5 mg 06/28/17 16:30 06/29/17 15:58 Reglan IVP 5 mg ACHS ASIM Administration Midazolam HCl 1 mg 06/27/17 18:43 Versed Inj IVP Q2H PRN Agitation Ondansetron HCl 4 mg 06/29/17 14:17 Zofran Inj IVP Q6H PRN Nausea/Vomiting - Patient Studies Lab Studies: Lab Studies 06/29/17 06/29/17 06/29/17 Range/Units 11:33 10:42 06:15 WBC (4.8-10.8) K/uL RBC (3.80-5.20) Mil/uL Hgb (11.0-16.0) g/dL Hct (34.0-47.0) % MCV (81.0-99.0) fL MCH (27.0-31.0) pg MCHC (33.0-37.0) g/dL RDW (11.5-14.5) % Plt Count (130-400) K/uL MPV (7.2-11.7) fL Neut % (Auto) (50.0-75.0) % Lymph % (Auto) (20.0-40.0) % Kent % (Auto) (0.0-10.0) % Eos % (Auto) (0.0-4.0) % Baso % (Auto) (0.0-2.0) % Neut # (1.8-7.0) K/uL Lymph # (1.0-4.3) K/uL Kent # (0.0-0.8) K/uL Eos # (0.0-0.7) K/uL Baso # (0.0-0.2) K/uL Puncture Site pCO2 (35-45) mm/Hg pO2 (80-100) mm/Hg HCO3 (21-28) mmol/L ABG pH (7.35-7.45) ABG Total CO2 (22-28) mmol/L ABG O2 Saturation (95-98) % ABG Base Excess (-2.0-3.0) mmol/L ABG Hemoglobin (11.7-17.4) g/dL ABG Carboxyhemoglobin (0.5-1.5) % POC ABG HHb (Measured) (0.0-5.0) % ABG Methemoglobin (0.0-3.0) % Jasvir Test A-a O2 Difference mm/Hg Respiratory Index Hgb O2 Saturation (95.0-98.0) % Vent Mode Mechanical Rate FiO2 % Tidal Volume PEEP Sodium (132-148) mmol/L Potassium (3.6-5.2) mmol/L Chloride (98-107) mmol/L Carbon Dioxide (22-30) mmol/L Anion Gap (10-20) BUN (7-17) mg/dL Creatinine (0.7-1.2) MG/DL Est GFR ( Amer) Est GFR (Non-Af Amer) POC Glucose (mg/dL) 136 H 131 H (65-110) mg/dL Random Glucose (65-105) mg/dL Calcium (8.6-10.4) mg/dl Phosphorus (2.5-4.5) mg/dL Magnesium (1.6-2.3) mg/dL Total Bilirubin (0.2-1.3) mg/dL AST (14-36) U/L ALT (9-52) U/L Alkaline Phosphatase (38-126) U/L Total Protein (6.3-8.3) g/dL Albumin (3.5-5.0) g/dL Globulin (2.2-3.9) gm/dL Albumin/Globulin Ratio (1.0-2.1) Procalcitonin 0.56 H (0.19-0.49) NG/ML 06/29/17 06/29/17 06/29/17 Range/Units 05:59 05:59 05:10 WBC 15.1 H (4.8-10.8) K/uL RBC 3.02 L (3.80-5.20) Mil/uL Hgb 7.9 L (11.0-16.0) g/dL Hct 25.7 L (34.0-47.0) % MCV 85.0 (81.0-99.0) fL MCH 26.2 L (27.0-31.0) pg MCHC 30.8 L (33.0-37.0) g/dL RDW 17.6 H (11.5-14.5) % Plt Count 135 (130-400) K/uL MPV 10.4 (7.2-11.7) fL Neut % (Auto) 70.1 (50.0-75.0) % Lymph % (Auto) 19.5 L (20.0-40.0) % Kent % (Auto) 7.8 (0.0-10.0) % Eos % (Auto) 2.2 (0.0-4.0) % Baso % (Auto) 0.4 (0.0-2.0) % Neut # 10.6 H (1.8-7.0) K/uL Lymph # 3.0 (1.0-4.3) K/uL Kent # 1.2 H (0.0-0.8) K/uL Eos # 0.3 (0.0-0.7) K/uL Baso # 0.1 (0.0-0.2) K/uL Puncture Site L rad pCO2 35 (35-45) mm/Hg pO2 104 H (80-100) mm/Hg HCO3 18.4 L (21-28) mmol/L ABG pH 7.30 L (7.35-7.45) ABG Total CO2 18.3 L (22-28) mmol/L ABG O2 Saturation 99.9 H (95-98) % ABG Base Excess -8.4 L (-2.0-3.0) mmol/L ABG Hemoglobin 7.8 L (11.7-17.4) g/dL ABG Carboxyhemoglobin 1.8 H (0.5-1.5) % POC ABG HHb (Measured) 0.1 (0.0-5.0) % ABG Methemoglobin 0.7 (0.0-3.0) % Jasvir Test Pos A-a O2 Difference 173.0 mm/Hg Respiratory Index 1.7 Hgb O2 Saturation 97.5 (95.0-98.0) % Vent Mode Prvc Mechanical Rate 16 FiO2 45.0 % Tidal Volume 450 PEEP 5 Sodium 144 (132-148) mmol/L Potassium 4.1 (3.6-5.2) mmol/L Chloride 115 H (98-107) mmol/L Carbon Dioxide 18 L (22-30) mmol/L Anion Gap 15 (10-20) BUN 49 H (7-17) mg/dL Creatinine 2.3 H (0.7-1.2) MG/DL Est GFR ( Amer) 25 Est GFR (Non-Af Amer) 21 POC Glucose (mg/dL) (65-110) mg/dL Random Glucose 99 (65-105) mg/dL Calcium 7.9 L (8.6-10.4) mg/dl Phosphorus 4.1 (2.5-4.5) mg/dL Magnesium 2.1 (1.6-2.3) mg/dL Total Bilirubin 0.4 (0.2-1.3) mg/dL AST 38 H (14-36) U/L ALT 48 (9-52) U/L Alkaline Phosphatase 69 (38-126) U/L Total Protein 5.4 L (6.3-8.3) g/dL Albumin 2.8 L (3.5-5.0) g/dL Globulin 2.6 (2.2-3.9) gm/dL Albumin/Globulin Ratio 1.1 (1.0-2.1) Procalcitonin (0.19-0.49) NG/ML 06/28/17 06/28/17 Range/Units 23:35 17:36 WBC (4.8-10.8) K/uL RBC (3.80-5.20) Mil/uL Hgb (11.0-16.0) g/dL Hct (34.0-47.0) % MCV (81.0-99.0) fL MCH (27.0-31.0) pg MCHC (33.0-37.0) g/dL RDW (11.5-14.5) % Plt Count (130-400) K/uL MPV (7.2-11.7) fL Neut % (Auto) (50.0-75.0) % Lymph % (Auto) (20.0-40.0) % Kent % (Auto) (0.0-10.0) % Eos % (Auto) (0.0-4.0) % Baso % (Auto) (0.0-2.0) % Neut # (1.8-7.0) K/uL Lymph # (1.0-4.3) K/uL Kent # (0.0-0.8) K/uL Eos # (0.0-0.7) K/uL Baso # (0.0-0.2) K/uL Puncture Site pCO2 (35-45) mm/Hg pO2 (80-100) mm/Hg HCO3 (21-28) mmol/L ABG pH (7.35-7.45) ABG Total CO2 (22-28) mmol/L ABG O2 Saturation (95-98) % ABG Base Excess (-2.0-3.0) mmol/L ABG Hemoglobin (11.7-17.4) g/dL ABG Carboxyhemoglobin (0.5-1.5) % POC ABG HHb (Measured) (0.0-5.0) % ABG Methemoglobin (0.0-3.0) % Jasvir Test A-a O2 Difference mm/Hg Respiratory Index Hgb O2 Saturation (95.0-98.0) % Vent Mode Mechanical Rate FiO2 % Tidal Volume PEEP Sodium (132-148) mmol/L Potassium (3.6-5.2) mmol/L Chloride (98-107) mmol/L Carbon Dioxide (22-30) mmol/L Anion Gap (10-20) BUN (7-17) mg/dL Creatinine (0.7-1.2) MG/DL Est GFR ( Amer) Est GFR (Non-Af Amer) POC Glucose (mg/dL) 118 H 141 H (65-110) mg/dL Random Glucose (65-105) mg/dL Calcium (8.6-10.4) mg/dl Phosphorus (2.5-4.5) mg/dL Magnesium (1.6-2.3) mg/dL Total Bilirubin (0.2-1.3) mg/dL AST (14-36) U/L ALT (9-52) U/L Alkaline Phosphatase (38-126) U/L Total Protein (6.3-8.3) g/dL Albumin (3.5-5.0) g/dL Globulin (2.2-3.9) gm/dL Albumin/Globulin Ratio (1.0-2.1) Procalcitonin (0.19-0.49) NG/ML Laboratory Results - last 24 hr 06/28/17 06/28/17 06/29/17 17:36 23:35 05:10 WBC RBC Hgb Hct MCV MCH MCHC RDW Plt Count MPV Neut % (Auto) Lymph % (Auto) [place] % (Auto) Eos % (Auto) Baso % (Auto) Neut # Lymph # [place] # Eos # Baso # Puncture Site L rad pCO2 35 pO2 104 H HCO3 18.4 L ABG pH 7.30 L ABG Total CO2 18.3 L ABG O2 Saturation 99.9 H ABG Base Excess -8.4 L ABG Hemoglobin 7.8 L ABG Carboxyhemoglobin 1.8 H POC ABG HHb (Measured) 0.1 ABG Methemoglobin 0.7 Jasvir Test Pos A-a O2 Difference 173.0 Respiratory Index 1.7 Hgb O2 Saturation 97.5 Vent Mode Prvc Mechanical Rate 16 FiO2 45.0 Tidal Volume 450 PEEP 5 Sodium Potassium Chloride Carbon Dioxide Anion Gap BUN Creatinine Est GFR ( Amer) Est GFR (Non-Af Amer) POC Glucose (mg/dL) 141 H 118 H Random Glucose Calcium Phosphorus Magnesium Total Bilirubin AST ALT Alkaline Phosphatase Total Protein Albumin Globulin Albumin/Globulin Ratio Procalcitonin 06/29/17 06/29/17 06/29/17 05:59 05:59 06:15 WBC 15.1 H RBC 3.02 L Hgb 7.9 L Hct 25.7 L MCV 85.0 MCH 26.2 L MCHC 30.8 L RDW 17.6 H Plt Count 135 MPV 10.4 Neut % (Auto) 70.1 Lymph % (Auto) 19.5 L [place] % (Auto) 7.8 Eos % (Auto) 2.2 Baso % (Auto) 0.4 Neut # 10.6 H Lymph # 3.0 Kent # 1.2 H Eos # 0.3 Baso # 0.1 Puncture Site pCO2 pO2 HCO3 ABG pH ABG Total CO2 ABG O2 Saturation ABG Base Excess ABG Hemoglobin ABG Carboxyhemoglobin POC ABG HHb (Measured) ABG Methemoglobin Jasvir Test A-a O2 Difference Respiratory Index Hgb O2 Saturation Vent Mode Mechanical Rate FiO2 Tidal Volume PEEP Sodium 144 Potassium 4.1 Chloride 115 H Carbon Dioxide 18 L Anion Gap 15 BUN 49 H Creatinine 2.3 H Est GFR ( Amer) 25 Est GFR (Non-Af Amer) 21 POC Glucose (mg/dL) 131 H Random Glucose 99 Calcium 7.9 L Phosphorus 4.1 Magnesium 2.1 Total Bilirubin 0.4 AST 38 H ALT 48 Alkaline Phosphatase 69 Total Protein 5.4 L Albumin 2.8 L Globulin 2.6 Albumin/Globulin Ratio 1.1 Procalcitonin 06/29/17 06/29/17 10:42 11:33 WBC RBC Hgb Hct MCV MCH MCHC RDW Plt Count MPV Neut % (Auto) Lymph % (Auto) [place] % (Auto) Eos % (Auto) Baso % (Auto) Neut # Lymph # [place] # Eos # Baso # Puncture Site pCO2 pO2 HCO3 ABG pH ABG Total CO2 ABG O2 Saturation ABG Base Excess ABG Hemoglobin ABG Carboxyhemoglobin POC ABG HHb (Measured) ABG Methemoglobin Jasvir Test A-a O2 Difference Respiratory Index Hgb O2 Saturation Vent Mode Mechanical Rate FiO2 Tidal Volume PEEP Sodium Potassium Chloride Carbon Dioxide Anion Gap BUN Creatinine Est GFR ( Amer) Est GFR (Non-Af Amer) POC Glucose (mg/dL) 136 H Random Glucose Calcium Phosphorus Magnesium Total Bilirubin AST ALT Alkaline Phosphatase Total Protein Albumin Globulin Albumin/Globulin Ratio Procalcitonin 0.56 H Assessment/Plan (1) Acute respiratory failure with hypoxemia Current Visit: Yes Status: Acute (2) Anemia Current Visit: Yes Status: Acute (3) Elevated troponin Current Visit: Yes Status: Acute Attending/Attestation - Attestation I have personally seen and examined this patient.: Yes I have fully participated in the care of the patient.: Yes I have reviewed all pertinent clinical information: Yes Notes (Text): 06/29/17 17:36 Patient seen and examined in the intensive care unit. Case discussed with house staff in the morning rounds. Extubated after weaning trial Postextubation complaining of nausea and slight shortness of breath BiPAP as needed Chest x-ray consistent with pleural effusion and congestive changes Lasix as needed Nephrology workup Follow-up CBC and transfuse as necessary Continue present treatment
[2017-06-29] MEDS ORDERED: Metoprolol 1 mg/ml Inj IVP ONE ×2 (22:42→23:56)
[2017-06-30] MEDS: (Novolin R) Insulin Human Regular 100 units/ml vial SC SCH ×4 (00:30→17:52)
[2017-06-30] MEDS: Piperacill/Tazo 2.25gm in Dex 2.25 GM/50 ML BAG IVPB SCH ×3 (01:00→16:08)
[2017-06-30 06:38] LABS: ABG ALLEN TEST POS; ARTERIAL BLOOD HGB O2 SAT 93.6 % (95.0-98.0); CARBOXYHEMOGLOBIN 2.2 % (0.5-1.5); DRAW SITE R RAD; HHB 3.7 % (0.0-5.0); METHEMOGLOBIN 0.5 % (0.0-3.0)
[2017-06-30 06:38] LABS: BASO # 0.1 K/uL (0.0-0.2); BASO % 0.6 % (0.0-2.0); EOS # 0.3 K/uL (0.0-0.7); HEMATOCRIT 27.3 % (34.0-47.0); LYMPH # 2.4 K/uL (1.0-4.3); MEAN CELL VOLUME 85.7 fL (81.0-99.0); MEAN CORPUSCULAR HEMOGLOBIN 26.7 pg (27.0-31.0); MEAN CORPUSCULAR HGB CONC 31.2 g/dL (33.0-37.0); MEAN PLATELET VOLUME 10.3 fL (7.2-11.7); MONO # 1.1 K/uL (0.0-0.8); MONO % 7.2 % (0.0-10.0); NRBC % 0.3 % (0.0-2.0); RED CELL DISTRIBUTION WIDTH 17.8 % (11.5-14.5); WHITE BLOOD COUNT 15.1 K/uL (4.8-10.8)
[2017-06-30 06:49] LABS: ALB/GLOB RATIO 1.1 (1.0-2.1); BILIRUBIN,TOTAL 0.7 mg/dL (0.2-1.3); CALCIUM 8.5 mg/dl (8.6-10.4); MAGNESIUM 1.9 mg/dL (1.6-2.3); PHOSPHOROUS 5.1 mg/dL (2.5-4.5); TOTAL PROTEIN 6.1 g/dL (6.3-8.3)
[2017-06-30 07:07] LABS: TROPONIN I 0.637 ng/mL (0.00-0.120)
[2017-06-30] MEDS ORDERED: Heparin25000 units/250ml 1/2NS 25,000 UNITS/250 ML BAG IV ONE (07:43)
--- NOTE | 2017-06-30 07:59 | PN ---
DATE: 06/29/2017 LOCATION: ICU 12.D SUBJECTIVE: This is a 77-year-old female who is postoperative endoscopy with biopsy yesterday. Seen and examined in rounds without significant reported clinical changes. The patient is still on NG tube feeding, intubated without reported active bleeding. The entire chart was reviewed including, but not limited to the most recent laboratory and radiology study results, current and previous medication list, and current and previous medical events. Case was discussed with the staff at length and the staff in the intensive care unit and the patient is less sedated, but more awake this morning. LABORATORY DATA: Most recent lab results showed white blood cells of 16.1 with low hemoglobin of 7.9, low hematocrit of 25.7 with low indices. With abnormal ABGs with low CO2 content to 18 indicative of metabolic acidosis with BUN elevated to 49 and creatinine elevated to 2.3 with blood glucose level of 131 and the low calcium of 7.9 with AST 15 to 30 is mildly elevated, low albumin of 2.8, and low total protein of 5.7. IMAGING DATA: Most recent chest x-ray done this morning showed vascular markings with early congestive heart failure. The patient also had abdominal and bladder ultrasound as requested by myself. Report is seen indicative of fatty liver. Right renal cyst also seen, with right pleural effusion. PHYSICAL EXAMINATION GENERAL: A 77-year-old female. VITAL SIGNS: Afebrile, with pulse of 82, and blood pressure of 150/64. HEENT: Showed pale dry oral mucous membrane. Nonicteric sclerae. LUNGS: She has got crepitation with few rales bilaterally. Decreased air entry at bases. HEART: Positive S1 and S2. ABDOMEN: Soft and some mild distention. No mass or organomegaly. No rebound tenderness or guarding. EXTREMITIES: Mild lower extremities edematous changes. No clubbing or cyanosis. NEUROLOGIC: No reported new neurological deficits, sensory or motor. IMPRESSION: 1. Re-exacerbation of peptic ulcer disease. 2. Anemia, most likely secondary to above and/or chronic disease with probability of lower gastrointestinal malignancy. 3. Syncopal episode by recent history with chest pain and related troponin level with possible myocardial infarction. 4. Respiratory failure with possible aspiration pneumonia. 5. Electrolyte imbalance. 6. Known history of but not limited to hypertension, osteoarthritis, chronic renal insufficiency as well as hyperlipidemia. 7. Hypoalbuminemia with malnutrition. SUGGESTIONS: 1. Continue current management. 2. The patient will need central hyperalimentation in the meantime. 3. Follow up CEA label as well as CA 125 and CA 19-9. 4. Guaiac positive stools . 5. The patient insertion if there is no significant improvement. I will follow up closely with you. 6. Further recommendation to follow Dr. Cazares, Diana Cazares MD
[2017-06-30 08:28] LABS: INR 1.1
--- NOTE | 2017-06-30 08:35 | RAD ---
HISTORY: sob COMPARISON: 06/29/2017 FINDINGS: LUNGS: Current lung volumes less than before. Central pulmonary vascular/venous engorgement suggested. Central pulmonary venous congestion mild bilateral pleural effusions and bibasilar patchy airspace opacities are present. The space opacities consistent coalescent pulmonary edema and/or pulmonary infiltrates. The bibasilar findings have increased since the prior exam. The pleural effusions are interval changes as well PLEURA: As above. No pneumothorax CARDIOVASCULAR: Mild cardiomegaly. Central pulmonary venous congestion suggested as above OSSEOUS STRUCTURES: No significant abnormalities. VISUALIZED UPPER ABDOMEN: Normal. OTHER FINDINGS: None. IMPRESSION: Interval increased pulmonary venous congestion with interval small bilateral pleural effusions. The interval increased bibasilar patchy airspace opacities are consistent with coalescent pulmonary edema areas and/or patchy pulmonary infiltrates.
[2017-06-30] MEDS: Heparin25000 units/250ml 1/2NS 25,000 UNITS/250 ML BAG IV PRN (08:45)
[2017-06-30] MEDS: Azithromycin 500 MG in Sodium Chloride 0.9% 250 ML IVPB SCH (09:18)
--- NOTE | 2017-06-30 11:38 | CP.PCM.PN ---
Subjective - Date & Time of Evaluation Date of Evaluation: 06/30/17 Time of Evaluation: 11:37 - Subjective Subjective: lethargic no distress Objective - Vital Signs/Intake and Output Vital Signs (last 24 hours): Temp Pulse Resp BP Pulse Ox 98.3 F 103 H 28 H 153/84 H 94 L 06/30/17 08:00 06/30/17 10:00 06/30/17 10:00 06/30/17 09:36 06/30/17 10:00 Intake and Output: 06/30/17 06/30/17 06:59 18:59 Intake Total 610 75.8 Output Total 1404 1327 Balance -794 -1251.2 - Medications Medications: Current Medications Famotidine (Pepcid) 20 mg IVP DAILY [facility] Last Admin: 06/30/17 09:18 Dose: 20 mg Piperacillin Sod/Tazobactam Sod (Zosyn 2.25 Gm Iv Premix) 2.25 gm in 50 mls @ 100 mls/hr IVPB Q8H [facility] Last Admin: 06/30/17 09:17 Dose: 100 mls/hr Azithromycin 500 mg/ Sodium (Chloride) 250 mls @ 250 mls/hr IVPB DAILY [facility] Last Admin: 06/30/17 09:18 Dose: 250 mls/hr Vancomycin/Sodium Chloride (Vancocin) 1 gm in 200 mls @ 133.333 mls/hr IVPB Q24H [facility] Last Admin: 06/28/17 13:00 Dose: Not Given Diltiazem HCl 125 mg/ Sodium (Chloride) 125 mls @ 5 mls/hr IV .Q24H [facility]; 5 MG/ HR PRN Reason: Protocol Last Titration: 06/30/17 05:00 Dose: 15 mg/hr, 15 mls/hr Heparin Sodium/Sodium Chloride (Heparin 59365 Units/250ml 1/2 Normal Saline) 25 ,000 units in 250 mls @ 7.947 mls/hr IV .Q24H PRN; Protocol; 12 UNITS/KG/HR PRN Reason: TITRATE PER PROTOCOL Last Admin: 06/30/17 08:45 Dose: 12 units/kg/hr, 7.947 mls/hr Insulin Human Regular (Novolin R) 0 unit SC Q6 [facility] PRN Reason: Protocol Last Admin: 06/30/17 06:07 Dose: Not Given Metoclopramide HCl (Reglan) 5 mg IVP ACHS [facility] Last Admin: 06/30/17 07:52 Dose: 5 mg Metoprolol Tartrate (Lopressor) 50 mg PO BID [facility] Last Admin: 06/30/17 10:44 Dose: 50 mg Midazolam HCl (Versed Inj) 1 mg IVP Q2H PRN PRN Reason: Agitation Ondansetron HCl (Zofran Inj) 4 mg IVP Q6H PRN PRN Reason: Nausea/Vomiting - Labs Labs: 06/30/17 06:27 06/30/17 06:27 PT 12.6 SECONDS (9.7-12.2) H 06/30/17 08:07 INR 1.1 06/30/17 08:07 APTT 24 SECONDS (21-34) 06/30/17 08:07 - Constitutional Appears: Non-toxic, Confused, Chronically Ill - Head Exam Head Exam: NORMAL INSPECTION - Eye Exam Eye Exam: Normal appearance - ENT Exam ENT Exam: Mucous Membranes Dry - Neck Exam Neck Exam: Normal Inspection - Respiratory Exam Respiratory Exam: Decreased Breath Sounds, NORMAL BREATHING PATTERN - Cardiovascular Exam Cardiovascular Exam: REGULAR RHYTHM, RRR - GI/Abdominal Exam GI & Abdominal Exam: Distended, Soft, Normal Bowel Sounds - Extremities Exam Extremities Exam: Normal Inspection Assessment and Plan (1) CKD (chronic kidney disease) Status: Acute (2) Acute respiratory failure with hypoxemia Status: Acute (3) Anemia Status: Acute (4) Elevated troponin Status: Acute (5) Acute renal failure Status: Acute - Assessment and Plan (Free Text) Assessment: Renal US and labs suggestive of chronic ckd avoid nephrotoxic meds hypotonic iv fluids
[2017-06-30] MEDS ORDERED: Sodium Chloride 0.45% 1,000 ML IV SCH (11:45)
[2017-06-30] MEDS: Metoprolol 1 mg/ml Inj IVP SCH ×2 (13:00→17:53)
--- NOTE | 2017-06-30 13:09 | CARD ---
APPROVED REPORT EKG Measurement Heart [id number] <Conclusion> Poor data quality, interpretation may be adversely affected Atrial fibrillation with rapid ventricular response ST & T wave abnormality, consider inferolateral ischemia Abnormal ECG
--- NOTE | 2017-06-30 14:05 | CP.PCM.PN ---
Subjective - Date & Time of Evaluation Date of Evaluation: 06/30/17 Time of Evaluation: 14:03 - Subjective Subjective: ON VENTI MASK SOB NO CP CLINICALLY STABLE CR IS STILL 2.4 HIGH RISK FOR CATH CONSERVATIVE TREATMENT FAMILY IS FULLY INFORMED OF THE PROGRESS AND RISK OF CATH Objective - Vital Signs/Intake and Output Vital Signs (last 24 hours): Temp Pulse Resp BP Pulse Ox 98 F 68 17 159/62 H 98 06/30/17 12:00 06/30/17 14:00 06/30/17 14:00 06/30/17 13:36 06/30/17 14:00 Intake and Output: 06/30/17 06/30/17 11:59 23:59 Intake Total 303.7 28.7 Output Total 2246 295 Balance -1942.3 -266.3 - Medications Medications: Current Medications Famotidine (Pepcid) 20 mg IVP DAILY [facility] Last Admin: 06/30/17 09:18 Dose: 20 mg Piperacillin Sod/Tazobactam Sod (Zosyn 2.25 Gm Iv Premix) 2.25 gm in 50 mls @ 100 mls/hr IVPB Q8H [facility] Last Admin: 06/30/17 09:17 Dose: 100 mls/hr Azithromycin 500 mg/ Sodium (Chloride) 250 mls @ 250 mls/hr IVPB DAILY [facility] Last Admin: 06/30/17 09:18 Dose: 250 mls/hr Vancomycin/Sodium Chloride (Vancocin) 1 gm in 200 mls @ 133.333 mls/hr IVPB Q24H [facility] Last Admin: 06/28/17 13:00 Dose: Not Given Diltiazem HCl 125 mg/ Sodium (Chloride) 125 mls @ 5 mls/hr IV .Q24H [facility]; 5 MG/ HR PRN Reason: Protocol Last Titration: 06/30/17 11:30 Dose: 5 mg/hr, 5 mls/hr Heparin Sodium/Sodium Chloride (Heparin 55458 Units/250ml 1/2 Normal Saline) 25 ,000 units in 250 mls @ 7.947 mls/hr IV .Q24H PRN; Protocol; 12 UNITS/KG/HR PRN Reason: TITRATE PER PROTOCOL Last Admin: 06/30/17 08:45 Dose: 12 units/kg/hr, 7.947 mls/hr Insulin Human Regular (Novolin R) 0 unit SC Q6 [facility] PRN Reason: Protocol Last Admin: 06/30/17 11:52 Dose: Not Given Metoclopramide HCl (Reglan) 5 mg IVP ACHS [facility] Last Admin: 06/30/17 11:54 Dose: 5 mg Metoprolol Tartrate (Lopressor) 50 mg PO BID [facility] Last Admin: 06/30/17 12:09 Dose: Not Given Metoprolol Tartrate (Lopressor) 5 mg IVP Q6H [facility] Last Admin: 06/30/17 13:00 Dose: 5 mg Midazolam HCl (Versed Inj) 1 mg IVP Q2H PRN PRN Reason: Agitation Ondansetron HCl (Zofran Inj) 4 mg IVP Q6H PRN PRN Reason: Nausea/Vomiting - Labs Labs: 06/30/17 06:27 06/30/17 06:27 PT 12.6 SECONDS (9.7-12.2) H 06/30/17 08:07 INR 1.1 06/30/17 08:07 APTT 24 SECONDS (21-34) 06/30/17 08:07
--- NOTE | 2017-06-30 14:31 | PN ---
DATE: LOCATION: ICU 12. SUBJECTIVE: This is a 78-year-old female seen and examined in rounds without significant clinical changes. Reported active bleeding recently. He is still intubated with tachycardia for which Cardizem IV drip was started. The entire chart is reviewed including, but not limited to the most recent lab and radiology study results, current and previous medication list, and current and previous medical events as well as allergies to medication list were reviewed. Case was discussed with the staff. LABORATORY DATA: Most recent labs results showed white blood cells of 16.1 with low hemoglobin of 8.5, hematocrit of 27.3 with normal platelet count 162, but increased PT to 12.6 with abnormal ABGs with CO2 content of 17 indicative of metabolic acidosis. BUN elevated to 46 and creatinine elevated to 2.2 with blood glucose level of 156 and the low calcium of 8.5 with increased phosphorus 5.1 with increased AST to 49, ALT 61 with troponin level of 0.637 with low albumin of 3.2. IMAGING DATA: Most recent chest x-ray done yesterday reported are seen with increased pulmonary edema with small bilateral pleural effusion as well as bibasilar pneumonia most likely. PHYSICAL EXAMINATION: GENERAL: A 77-year-old female, afebrile. VITAL SIGNS: Heart rate of 108 with blood pressure of 130/86. HEENT: Pale, dry oral mucous membrane. Nonicteric sclerae. LUNGS: Have crepitation, decreased air entry at bases. HEART: Positive S1 and S2 with increased rate. ABDOMEN: Generalized mild distension. Bowel sounds are hypoactive. No mass or organomegaly. No rebound tenderness or guarding. EXTREMITIES: Mild edematous changes. No clubbing or cyanosis. NEUROLOGIC: No reported new neurological deficits, sensory or motor. IMPRESSION: 1. Bilateral pneumonia, pleural effusion, congestive heart failure, respiratory failure with intubation. 2. Re-exacerbation of peptic ulcer disease. 3. Anemia most likely secondary to some gastrointestinal blood loss as well as chronic disease. 4. Syncopal episode by recent history. 5. Elevated troponin level with possible myocardial infarction. 6. Electrolyte imbalance. 7. Known history of but not limited to hyperlipidemia, hypertension, osteoarthritis, and chronic renal insufficiency. 8. Malnutrition with hypoalbuminemia. SUGGESTIONS: 1. Continue current management. 2. Peripheral hyperalimentation 3. No aggressive gastrointestinal workup in the meantime due to the patient's clinical presentation; however, if the patient symptoms persists with poor oral intake then PEG insertion to be offered. Diana Cazares MD cc: Diana Cazares MD [facility] # [id number]
--- NOTE | 2017-06-30 15:44 | RAD ---
HISTORY: pleural effusion COMPARISON: Portable chest 06/29/2017 FINDINGS: LUNGS: History volume appears stable. Patchy density is slightly diminished at the left base posterior to the left heart with no interval change at the right base. Hilar vascular markings remain borderline increased an element of CHF remains questioned although infiltrates or atelectasis are not excluded both bases. Trace right pleural effusion is questioned with none identified at the left. No pneumothorax. PLEURA: Trachea is midline. As discussed above CARDIOVASCULAR: Cardiac silhouette appears stable. OSSEOUS STRUCTURES: As above VISUALIZED UPPER ABDOMEN: As above OTHER FINDINGS: None. IMPRESSION: Improved aeration at the left base is appreciated with diminishing infiltrate or atelectasis suspected tear. Right basilar atelectasis infiltrate is unchanged. Mild CHF pattern again identified. Continued clinical and radiographic follow-up are advised. Report
--- NOTE | 2017-06-30 18:17 | CP.CCUPN ---
<Eliza Coreas - Last Filed: 06/30/17 18:07> CCU Subjective - Physician Review Subjective (Free Text): Patient was seen and examined at bedside in the morning. Patient is lethargic and with BiPAP on. As per nurse, patient becomes more confused in the afternoon. 06/30/17 18:26 CCU Objective - Vital Signs / Intake & Output Vital Signs (Last 4 hours): Vital Signs Temp Pulse Resp BP Pulse Ox 06/30/17 17:00 107 H 22 97 06/30/17 16:37 107 H 24 152/73 H 98 06/30/17 16:00 97.5 F L 140 H 29 H 97 06/30/17 15:37 100 H 24 153/74 H 99 06/30/17 15:00 76 22 97 06/30/17 14:36 71 20 166/70 H 97 Intake and Output (Last 8hrs): Intake & Output 06/30/17 06/30/17 06/30/17 06:59 14:59 22:59 Intake Total 210 222.4 63.7 Output Total 936 1422 325 Balance -726 -1199.6 -261.3 Weight 143 lb 2 oz Intake: IV 15 105 30 Intake, IV Amount 195 117.4 33.7 Right Distal Port Femoral 47.4 23.7 Right Proximal Port 195 70 10 Femoral Output: Urine 936 1422 325 Urethral (Neff) 936 1422 325 Other: # Bowel Movements 0 0 - Physical Exam Head: Positive for: Atraumatic, Normocephalic Extroacular Muscles: Positive for: EOMI Mouth: Positive for: Moist Mucous Membranes Respiratory/Chest: Positive for: Clear to Auscultation. Negative for: Wheezes, Rales, Rhonchi Cardiovascular: Positive for: Normal S1, S2, Irregular Rhythm, Tachycardic. Negative for: Bradycardic Abdomen: Positive for: Distention, Normal Bowel Sounds. Negative for: Tenderness Upper Extremity: Positive for: Normal Inspection. Negative for: Edema Lower Extremity: Positive for: Normal Inspection. Negative for: Edema Skin: Positive for: Warm, Dry, Normal Color Psychiatric: Positive for: Alert, Lethargic - Medications Active Medications: Active Medications Generic Name Dose Route Start Last Admin Trade Name Freq PRN Reason Stop Dose Admin Famotidine 20 mg 06/26/17 10:00 06/30/17 09:18 Pepcid IVP 20 mg DAILY ASIM Administration Piperacillin Sod/Tazobactam Sod 2.25 gm in 50 mls @ 100 mls/hr 06/26/17 09:00 06/30/17 16:08 Zosyn 2.25 Gm Iv Premix IVPB 100 mls/hr Q8H ASIM Administration Azithromycin 500 mg/ Sodium 250 mls @ 250 mls/hr 06/26/17 10:00 06/30/17 09: 18 Chloride IVPB 250 mls/hr DAILY ASIM Administration Vancomycin/Sodium Chloride 1 gm in 200 mls @ 133.333 mls/hr 06/27/17 12:00 13:00 Vancocin IVPB Not Given Q24H ASIM Diltiazem HCl 125 mg/ Sodium 125 mls @ 5 mls/hr 06/30/17 03:00 06/30/17 17:17 Chloride IV 5 mg/hr .Q24H ASIM 5 mls/hr Protocol Titration 5 MG/HR Heparin Sodium/Sodium Chloride 25,000 units in 250 mls @ 7.947 mls/hr 08:36 06/30/17 08:45 Heparin 05327 Units/250ml 1/2 Normal Saline IV 12 units/kg/hr .Q24H PRN 7.947 mls/hr TITRATE PER PROTOCOL Administration Protocol 12 UNITS/KG/HR Insulin Human Regular 0 unit 06/27/17 13:02 06/30/17 17:52 Novolin R SC Not Given Q6 ASIM Protocol Metoclopramide HCl 5 mg 06/28/17 16:30 06/30/17 16:23 Reglan IVP 5 mg ACHS ASIM Administration Metoprolol Tartrate 50 mg 06/30/17 10:00 06/30/17 17:48 Lopressor PO Not Given BID ASIM Metoprolol Tartrate 5 mg 06/30/17 12:45 06/30/17 17:53 Lopressor IVP 5 mg Q6H ASIM Administration Midazolam HCl 1 mg 06/27/17 18:43 Versed Inj IVP Q2H PRN Agitation Ondansetron HCl 4 mg 06/29/17 14:17 Zofran Inj IVP Q6H PRN Nausea/Vomiting - Patient Studies Lab Studies: Lab Studies 06/30/17 06/30/1706/30/17 Range/Units 17:51 15:05 12:10 WBC (4.8-10.8) K/uL RBC (3.80-5.20) Mil/uL Hgb (11.0-16.0) g/dL Hct (34.0-47.0) % MCV (81.0-99.0) fL MCH (27.0-31.0) pg MCHC (33.0-37.0) g/dL RDW (11.5-14.5) % Plt Count (130-400) K/uL MPV (7.2-11.7) fL Neut % (Auto) (50.0-75.0) % Lymph % (Auto) (20.0-40.0) % [place] % (Auto) (0.0-10.0) % Eos % (Auto) (0.0-4.0) % Baso % (Auto) (0.0-2.0) % Neut # (1.8-7.0) K/uL Lymph # (1.0-4.3) K/uL [place] # (0.0-0.8) K/uL Eos # (0.0-0.7) K/uL Baso # (0.0-0.2) K/uL PT (9.7-12.2) SECONDS INR APTT 62 H D (21-34) SECONDS Puncture Site pCO2 (35-45) mm/Hg pO2 (80-100) mm/Hg HCO3 (21-28) mmol/L ABG pH (7.35-7.45) ABG Total CO2 (22-28) mmol/L ABG O2 Saturation (95-98) % ABG Base Excess (-2.0-3.0) mmol/L ABG Hemoglobin (11.7-17.4) g/dL ABG Carboxyhemoglobin (0.5-1.5) % POC ABG HHb (Measured) (0.0-5.0) % ABG Methemoglobin (0.0-3.0) % Jasvir Test A-a O2 Difference mm/Hg Respiratory Index Hgb O2 Saturation (95.0-98.0) % FiO2 % Inspiratory BiPAP Expiratory BiPAP Sodium (132-148) mmol/L Potassium (3.6-5.2) mmol/L Chloride (98-107) mmol/L Carbon Dioxide (22-30) mmol/L Anion Gap (10-20) BUN (7-17) mg/dL Creatinine (0.7-1.2) MG/DL Est GFR ( Amer) Est GFR (Non-Af Amer) POC Glucose (mg/dL) 170 H (65-110) mg/dL Random Glucose (65-105) mg/dL Calcium (8.6-10.4) mg/dl Phosphorus (2.5-4.5) mg/dL Magnesium (1.6-2.3) mg/dL Total Bilirubin (0.2-1.3) mg/dL AST (14-36) U/L ALT (9-52) U/L Alkaline Phosphatase (38-126) U/L Troponin I (0.00-0.120) ng/mL Total Protein (6.3-8.3) g/dL Albumin (3.5-5.0) g/dL Globulin (2.2-3.9) gm/dL Albumin/Globulin Ratio (1.0-2.1) Procalcitonin (0.19-0.49) NG/ML TSH 3rd Generation 1.36 (0.46-4.68) mIU/L 06/30/17 06/30/17 06/30/17 Range/Units 12:10 11:32 08:07 WBC (4.8-10.8) K/uL RBC (3.80-5.20) Mil/uL Hgb (11.0-16.0) g/dL Hct (34.0-47.0) % MCV (81.0-99.0) fL MCH (27.0-31.0) pg MCHC (33.0-37.0) g/dL RDW (11.5-14.5) % Plt Count (130-400) K/uL MPV (7.2-11.7) fL Neut % (Auto) (50.0-75.0) % Lymph % (Auto) (20.0-40.0) % [place] % (Auto) (0.0-10.0) % Eos % (Auto) (0.0-4.0) % Baso % (Auto) (0.0-2.0) % Neut # (1.8-7.0) K/uL Lymph # (1.0-4.3) K/uL [place] # (0.0-0.8) K/uL Eos # (0.0-0.7) K/uL Baso # (0.0-0.2) K/uL PT 12.6 H (9.7-12.2) SECONDS INR 1.1 APTT 24 (21-34) SECONDS Puncture Site pCO2 (35-45) mm/Hg pO2 (80-100) mm/Hg HCO3 (21-28) mmol/L ABG pH (7.35-7.45) ABG Total CO2 (22-28) mmol/L ABG O2 Saturation (95-98) % ABG Base Excess (-2.0-3.0) mmol/L ABG Hemoglobin (11.7-17.4) g/dL ABG Carboxyhemoglobin (0.5-1.5) % POC ABG HHb (Measured) (0.0-5.0) % ABG Methemoglobin (0.0-3.0) % Jasvir Test A-a O2 Difference mm/Hg Respiratory Index Hgb O2 Saturation (95.0-98.0) % FiO2 % Inspiratory BiPAP Expiratory BiPAP Sodium (132-148) mmol/L Potassium (3.6-5.2) mmol/L Chloride (98-107) mmol/L Carbon Dioxide (22-30) mmol/L Anion Gap (10-20) BUN (7-17) mg/dL Creatinine (0.7-1.2) MG/DL Est GFR ( Amer) Est GFR (Non-Af Amer) POC Glucose (mg/dL) 194 H (65-110) mg/dL Random Glucose (65-105) mg/dL Calcium (8.6-10.4) mg/dl Phosphorus (2.5-4.5) mg/dL Magnesium (1.6-2.3) mg/dL Total Bilirubin (0.2-1.3) mg/dL AST (14-36) U/L ALT (9-52) U/L Alkaline Phosphatase (38-126) U/L Troponin I (0.00-0.120) ng/mL Total Protein (6.3-8.3) g/dL Albumin (3.5-5.0) g/dL Globulin (2.2-3.9) gm/dL Albumin/Globulin Ratio (1.0-2.1) Procalcitonin 0.40 (0.19-0.49) NG/ML TSH 3rd Generation (0.46-4.68) mIU/L 06/30/17 06/30/17 06/30/17 Range/Units 06:27 06:27 05:33 WBC 15.1 H (4.8-10.8) K/uL RBC 3.19 L (3.80-5.20) Mil/uL Hgb 8.5 L (11.0-16.0) g/dL Hct 27.3 L (34.0-47.0) % MCV 85.7 (81.0-99.0) fL MCH 26.7 L (27.0-31.0) pg MCHC 31.2 L (33.0-37.0) g/dL RDW 17.8 H (11.5-14.5) % Plt Count 162 (130-400) K/uL MPV 10.3 (7.2-11.7) fL Neut % (Auto) 74.2 (50.0-75.0) % Lymph % (Auto) 16.0 L (20.0-40.0) % [place] % (Auto) 7.2 (0.0-10.0) % Eos % (Auto) 2.0 (0.0-4.0) % Baso % (Auto) 0.6 (0.0-2.0) % Neut # 11.2 H (1.8-7.0) K/uL Lymph # 2.4 (1.0-4.3) K/uL [place] # 1.1 H (0.0-0.8) K/uL Eos # 0.3 (0.0-0.7) K/uL Baso # 0.1 (0.0-0.2) K/uL PT (9.7-12.2) SECONDS INR APTT (21-34) SECONDS Puncture Site pCO2 (35-45) mm/Hg pO2 (80-100) mm/Hg HCO3 (21-28) mmol/L ABG pH (7.35-7.45) ABG Total CO2 (22-28) mmol/L ABG O2 Saturation (95-98) % ABG Base Excess (-2.0-3.0) mmol/L ABG Hemoglobin (11.7-17.4) g/dL ABG Carboxyhemoglobin (0.5-1.5) % POC ABG HHb (Measured) (0.0-5.0) % ABG Methemoglobin (0.0-3.0) % Jasvir Test A-a O2 Difference mm/Hg Respiratory Index Hgb O2 Saturation (95.0-98.0) % FiO2 % Inspiratory BiPAP Expiratory BiPAP Sodium 145 (132-148) mmol/L Potassium 4.0 (3.6-5.2) mmol/L Chloride 113 H (98-107) mmol/L Carbon Dioxide 17 L (22-30) mmol/L Anion Gap 19 (10-20) BUN 46 H (7-17) mg/dL Creatinine 2.2 H (0.7-1.2) MG/DL Est GFR ( Amer) 26 Est GFR (Non-Af Amer) 22 POC Glucose (mg/dL) 156 H (65-110) mg/dL Random Glucose 120 H (65-105) mg/dL Calcium 8.5 L (8.6-10.4) mg/dl Phosphorus 5.1 H (2.5-4.5) mg/dL Magnesium 1.9 (1.6-2.3) mg/dL Total Bilirubin 0.7 (0.2-1.3) mg/dL AST 49 H D (14-36) U/L ALT 61 H D (9-52) U/L Alkaline Phosphatase 92 (38-126) U/L Troponin I 0.6370 H* (0.00-0.120) ng/mL Total Protein 6.1 L (6.3-8.3) g/dL Albumin 3.2 L (3.5-5.0) g/dL Globulin 2.9 (2.2-3.9) gm/dL Albumin/Globulin Ratio 1.1 (1.0-2.1) Procalcitonin (0.19-0.49) NG/ML TSH 3rd Generation (0.46-4.68) mIU/L 06/30/17 06/30/1706/29/17 Range/Units 05:27 00:28 18:12 WBC (4.8-10.8) K/uL RBC (3.80-5.20) Mil/uL Hgb (11.0-16.0) g/dL Hct (34.0-47.0) % MCV (81.0-99.0) fL MCH (27.0-31.0) pg MCHC (33.0-37.0) g/dL RDW (11.5-14.5) % Plt Count (130-400) K/uL MPV (7.2-11.7) fL Neut % (Auto) (50.0-75.0) % Lymph % (Auto) (20.0-40.0) % [place] % (Auto) (0.0-10.0) % Eos % (Auto) (0.0-4.0) % Baso % (Auto) (0.0-2.0) % Neut # (1.8-7.0) K/uL Lymph # (1.0-4.3) K/uL [place] # (0.0-0.8) K/uL Eos # (0.0-0.7) K/uL Baso # (0.0-0.2) K/uL PT (9.7-12.2) SECONDS INR APTT (21-34) SECONDS Puncture Site R rad pCO2 39 (35-45) mm/Hg pO2 67 L (80-100) mm/Hg HCO3 18.3 L (21-28) mmol/L ABG pH 7.27 L (7.35-7.45) ABG Total CO2 19.1 L (22-28) mmol/L ABG O2 Saturation 96.2 (95-98) % ABG Base Excess -8.4 L (-2.0-3.0) mmol/L ABG Hemoglobin 9.6 L (11.7-17.4) g/dL ABG Carboxyhemoglobin 2.2 H (0.5-1.5) % POC ABG HHb (Measured) 3.7 (0.0-5.0) % ABG Methemoglobin 0.5 (0.0-3.0) % Jasvir Test Pos A-a O2 Difference 241.0 mm/Hg Respiratory Index 3.6 Hgb O2 Saturation 93.6 L (95.0-98.0) % FiO2 50.0 % Inspiratory BiPAP 10 Expiratory BiPAP 5 Sodium (132-148) mmol/L Potassium (3.6-5.2) mmol/L Chloride (98-107) mmol/L Carbon Dioxide (22-30) mmol/L Anion Gap (10-20) BUN (7-17) mg/dL Creatinine (0.7-1.2) MG/DL Est GFR ( Amer) Est GFR (Non-Af Amer) POC Glucose (mg/dL) 138 H 154 H (65-110) mg/dL Random Glucose (65-105) mg/dL Calcium (8.6-10.4) mg/dl Phosphorus (2.5-4.5) mg/dL Magnesium (1.6-2.3) mg/dL Total Bilirubin (0.2-1.3) mg/dL AST (14-36) U/L ALT (9-52) U/L Alkaline Phosphatase (38-126) U/L Troponin I (0.00-0.120) ng/mL Total Protein (6.3-8.3) g/dL Albumin (3.5-5.0) g/dL Globulin (2.2-3.9) gm/dL Albumin/Globulin Ratio (1.0-2.1) Procalcitonin (0.19-0.49) NG/ML TSH 3rd Generation (0.46-4.68) mIU/L Laboratory Results - last 24 hr 06/29/17 06/30/17 06/30/17 18:12 00:28 05:27 WBC RBC Hgb Hct MCV MCH MCHC RDW Plt Count MPV Neut % (Auto) Lymph % (Auto) [place] % (Auto) Eos % (Auto) Baso % (Auto) Neut # Lymph # [place] # Eos # Baso # PT INR APTT Puncture Site R rad pCO2 39 pO2 67 L HCO3 18.3 L ABG pH 7.27 L ABG Total CO2 19.1 L ABG O2 Saturation 96.2 ABG Base Excess -8.4 L ABG Hemoglobin 9.6 L ABG Carboxyhemoglobin 2.2 H POC ABG HHb (Measured) 3.7 ABG Methemoglobin 0.5 Jasvir Test Pos A-a O2 Difference 241.0 Respiratory Index 3.6 Hgb O2 Saturation 93.6 L FiO2 50.0 Inspiratory BiPAP 10 Expiratory BiPAP 5 Sodium Potassium Chloride Carbon Dioxide Anion Gap BUN Creatinine Est GFR ( Amer) Est GFR (Non-Af Amer) POC Glucose (mg/dL) 154 H 138 H Random Glucose Calcium Phosphorus Magnesium Total Bilirubin AST ALT Alkaline Phosphatase Troponin I Total Protein Albumin Globulin Albumin/Globulin Ratio Procalcitonin TSH 3rd Generation 06/30/17 06/30/17 06/30/17 05:33 06:27 06:27 WBC 15.1 H RBC 3.19 L Hgb 8.5 L Hct 27.3 L MCV 85.7 MCH 26.7 L MCHC 31.2 L RDW 17.8 H Plt Count 162 MPV 10.3 Neut % (Auto) 74.2 Lymph % (Auto) 16.0 L [place] % (Auto) 7.2 Eos % (Auto) 2.0 Baso % (Auto) 0.6 Neut # 11.2 H Lymph # 2.4 [place] # 1.1 H Eos # 0.3 Baso # 0.1 PT INR APTT Puncture Site pCO2 pO2 HCO3 ABG pH ABG Total CO2 ABG O2 Saturation ABG Base Excess ABG Hemoglobin ABG Carboxyhemoglobin POC ABG HHb (Measured) ABG Methemoglobin Jasvir Test A-a O2 Difference Respiratory Index Hgb O2 Saturation FiO2 Inspiratory BiPAP Expiratory BiPAP Sodium 145 Potassium 4.0 Chloride 113 H Carbon Dioxide 17 L Anion Gap 19 BUN 46 H Creatinine 2.2 H Est GFR ( Amer) 26 Est GFR (Non-Af Amer) 22 POC Glucose (mg/dL) 156 H Random Glucose 120 H Calcium 8.5 L Phosphorus 5.1 H Magnesium 1.9 Total Bilirubin 0.7 AST 49 H D ALT 61 H D Alkaline Phosphatase 92 Troponin I 0.6370 H* Total Protein 6.1 L Albumin 3.2 L Globulin 2.9 Albumin/Globulin Ratio 1.1 Procalcitonin TSH 3rd Generation 06/30/17 06/30/17 06/30/17 08:07 11:32 12:10 WBC RBC Hgb Hct MCV MCH MCHC RDW Plt Count MPV Neut % (Auto) Lymph % (Auto) [place] % (Auto) Eos % (Auto) Baso % (Auto) Neut # Lymph # [place] # Eos # Baso # PT 12.6 H INR 1.1 APTT 24 Puncture Site pCO2 pO2 HCO3 ABG pH ABG Total CO2 ABG O2 Saturation ABG Base Excess ABG Hemoglobin ABG Carboxyhemoglobin POC ABG HHb (Measured) ABG Methemoglobin Jasvir Test A-a O2 Difference Respiratory Index Hgb O2 Saturation FiO2 Inspiratory BiPAP Expiratory BiPAP Sodium Potassium Chloride Carbon Dioxide Anion Gap BUN Creatinine Est GFR ( Amer) Est GFR (Non-Af Amer) POC Glucose (mg/dL) 194 H Random Glucose Calcium Phosphorus Magnesium Total Bilirubin AST ALT Alkaline Phosphatase Troponin I Total Protein Albumin Globulin Albumin/Globulin Ratio Procalcitonin 0.40 TSH 3rd Generation 06/30/17 06/30/17 06/30/17 12:10 15:05 17:51 WBC RBC Hgb Hct MCV MCH MCHC RDW Plt Count MPV Neut % (Auto) Lymph % (Auto) [place] % (Auto) Eos % (Auto) Baso % (Auto) Neut # Lymph # [place] # Eos # Baso # PT INR APTT 62 H D Puncture Site pCO2 pO2 HCO3 ABG pH ABG Total CO2 ABG O2 Saturation ABG Base Excess ABG Hemoglobin ABG Carboxyhemoglobin POC ABG HHb (Measured) ABG Methemoglobin Jasvir Test A-a O2 Difference Respiratory Index Hgb O2 Saturation FiO2 Inspiratory BiPAP Expiratory BiPAP Sodium Potassium Chloride Carbon Dioxide Anion Gap BUN Creatinine Est GFR ( Amer) Est GFR (Non-Af Amer) POC Glucose (mg/dL) 170 H Random Glucose Calcium Phosphorus Magnesium Total Bilirubin AST ALT Alkaline Phosphatase Troponin I Total Protein Albumin Globulin Albumin/Globulin Ratio Procalcitonin TSH 3rd Generation 1.36 EKG/Cardiology Studies: Cardiology / EKG Studies 06/29/17 22:40 ELECTROCARDIOGRAM Stat Comment: Mode Of Transportation: Reason For Exam: afib, on monitor Fingerstick Blood Sugar Results: 170 Review of Systems - Review of Systems Systems not reviewed;Unavailable: Other (lethargic, with bipap on) Assessment/Plan - Assessment and Plan (Free Text) Assessment: 77 year old female with history of HTN, DM, CAD, presented initially c/o chest pain. Patient had syncopal episode when BLS arrived and became diaphoretic and bradycardic. ALS arrived, patient had episode of vomiting, intubated for airway protection. Patient was severely anemic on presentation (Hgb 6.5), s/p prbc, 8.9. Patient had EDG 06/28/17, showed small hiatal hernia and acute gastritis. Patient was placed on CPAP trial and then extubated on 06/29/17. Patient c/o nausea and SOB post-extubation. Patient placed on BiPAP prn. Overnight, patient went into a-fib, started on cardizem drip and heparin drip. Patient converted to normal sinus rhythm, and cardizem drip was being tapered. In the afternoon, patient in afib, cardizem drip continued (06/30/17). Neuro: alert - off sedation Pulm: - Patient was extubated on 06/29/17 - Acute respiratory failure with hypoxemia secondary to pulmonary edema - CXR: mild interval decrease in persistent interstitial prominence which may be infection or edema; b/l hilar prominence may reflect central vascular congestion CV: NSTEMI - Troponin: 0.25, 3.11, 4.03, 2.84 (trending down) - Cardiology consulted: Dr. Arshad - As per Dr. Arshad, cannot do cardiac cath due to elevated Cr. - Off pressors - NS@100ml/hr - Echo: EF 35%; moderately impaired LV systolic function; mild hypokinesis of posterior wall; grade-II pseudonormal diastolic dysfunction; elevated LA pressure; mod dilated LA; Trace AR; Aortic valve mildly sclerotic. - A-fib, started on cardizem drip and heparin drip. - Started metoprolol 5mg IV Q6 Endo: no acute issues - ISS GI: anemic - Hgb 6.5 on admission, transfused 2 units PRBC - GI consulted: Dr. Mendoza, help appreciated - EGD (06/28/17): small hiatal hernia, acute gastritis (biopsied) - EDG and colonoscopy in 02/2017, 5mm polyp resected; congested mucosa in descending colon, non-bleeding external, internal hemorrhoids. - Abd/Pelvic U/S: echogenic liver maybe in setting of hepatic parenchymal disease or fatty infiltration; b/l echogenic renal parenchyma maybe in setting of medical renal disease; 2.3x2.0x2.2cm right renal cyst - Monitor H/H Heme: anemic, s/p PRBC transfusionx2 - Hgb 6.5 on admission, transfused 2 units PRBC - Hgb 8.1 (06/28/17) - Monitor H/H Renal: - Nephrology consulted- Dr. Moreira, help appreciated - Elevated BUN/Cr: worsening, 49/2.3 ID: Leokocytosis - Continue Azithromycin, Zosyn - Hold Vancomycin-->vanco trough 20.1 - UA: 1+ protein, 3+ blood, 15 WBC, 60 RBC Prophylaxis: - DVT: SCDs; anticoagulation C/I- anemic - GI: Pepcid daily - Swallow eval: failed on 06/30/17, will reassess <Steve Muñoz - Last Filed: 07/01/17 01:01> CCU Objective - Vital Signs / Intake & Output Vital Signs (Last 4 hours): Vital Signs Pulse 07/01/17 00:50 65 06/30/17 22:49 98 H Intake and Output (Last 8hrs): Intake & Output 06/30/17 06/30/17 07/01/17 14:59 22:59 06:59 Intake Total 222.4 89.5 Output Total 1422 495 Balance -1199.6 -405.5 Weight 143 lb 2 oz Intake: IV 105 30 Intake, IV Amount 117.4 59.5 Right Distal Port Femoral 47.4 39.5 Right Proximal Port 70 20 Femoral Output: Urine 1422 495 Urethral (Neff) 1422 495 Other: # Bowel Movements 0 0 - Medications Active Medications: Active Medications Generic Name Dose Route Start Last Admin Trade Name Freq PRN Reason Stop Dose Admin Famotidine 20 mg 06/26/17 10:00 06/30/17 09:18 Pepcid IVP 20 mg DAILY ASIM Administration Piperacillin Sod/Tazobactam Sod 2.25 gm in 50 mls @ 100 mls/hr 06/26/17 09:00 06/30/17 16:08 Zosyn 2.25 Gm Iv Premix IVPB 100 mls/hr Q8H ASIM Administration Azithromycin 500 mg/ Sodium 250 mls @ 250 mls/hr 06/26/17 10:00 06/30/17 09: 18 Chloride IVPB 250 mls/hr DAILY ASIM Administration Vancomycin/Sodium Chloride 1 gm in 200 mls @ 133.333 mls/hr 06/27/17 12:00 13:00 Vancocin IVPB Not Given Q24H ASIM Diltiazem HCl 125 mg/ Sodium 125 mls @ 5 mls/hr 06/30/17 03:00 06/30/17 17:17 Chloride IV 5 mg/hr .Q24H ASIM 5 mls/hr Protocol Titration 5 MG/HR Heparin Sodium/Sodium Chloride 25,000 units in 250 mls @ 7.947 mls/hr 08:36 06/30/17 08:45 Heparin 97886 Units/250ml 1/2 Normal Saline IV 12 units/kg/hr .Q24H PRN 7.947 mls/hr TITRATE PER PROTOCOL Administration Protocol 12 UNITS/KG/HR Insulin Human Regular 0 unit 06/27/17 13:02 06/30/17 17:52 Novolin R SC Not Given Q6 ASIM Protocol Metoclopramide HCl 5 mg 06/28/17 16:30 06/30/17 22:50 Reglan IVP 5 mg ACHS ASIM Administration Metoprolol Tartrate 50 mg 06/30/17 10:00 06/30/17 17:48 Lopressor PO Not Given BID ASIM Metoprolol Tartrate 5 mg 06/30/17 12:45 06/30/17 17:53 Lopressor IVP 5 mg Q6H ASIM Administration Midazolam HCl 1 mg 06/27/17 18:43 06/30/17 23:58 Versed Inj IVP 1 mg Q2H PRN Administration Agitation Ondansetron HCl 4 mg 06/29/17 14:17 Zofran Inj IVP Q6H PRN Nausea/Vomiting - Patient Studies Lab Studies: Lab Studies 06/30/17 06/30/17 06/30/17 Range/Units 23:49 21:40 17:51 WBC (4.8-10.8) K/uL RBC (3.80-5.20) Mil/uL Hgb (11.0-16.0) g/dL Hct (34.0-47.0) % MCV (81.0-99.0) fL MCH (27.0-31.0) pg MCHC (33.0-37.0) g/dL RDW (11.5-14.5) % Plt Count (130-400) K/uL MPV (7.2-11.7) fL Neut % (Auto) (50.0-75.0) % Lymph % (Auto) (20.0-40.0) % [place] % (Auto) (0.0-10.0) % Eos % (Auto) (0.0-4.0) % Baso % (Auto) (0.0-2.0) % Neut # (1.8-7.0) K/uL Lymph # (1.0-4.3) K/uL [place] # (0.0-0.8) K/uL Eos # (0.0-0.7) K/uL Baso # (0.0-0.2) K/uL PT (9.7-12.2) SECONDS INR APTT 53 H D (21-34) SECONDS Puncture Site pCO2 (35-45) mm/Hg pO2 (80-100) mm/Hg HCO3 (21-28) mmol/L ABG pH (7.35-7.45) ABG Total CO2 (22-28) mmol/L ABG O2 Saturation (95-98) % ABG Base Excess (-2.0-3.0) mmol/L ABG Hemoglobin (11.7-17.4) g/dL ABG Carboxyhemoglobin (0.5-1.5) % POC ABG HHb (Measured) (0.0-5.0) % ABG Methemoglobin (0.0-3.0) % Jasvir Test A-a O2 Difference mm/Hg Respiratory Index Hgb O2 Saturation (95.0-98.0) % FiO2 % Inspiratory BiPAP Expiratory BiPAP Sodium (132-148) mmol/L Potassium (3.6-5.2) mmol/L Chloride (98-107) mmol/L Carbon Dioxide (22-30) mmol/L Anion Gap (10-20) BUN (7-17) mg/dL Creatinine (0.7-1.2) MG/DL Est GFR ( Amer) Est GFR (Non-Af Amer) POC Glucose (mg/dL) 202 H 170 H (65-110) mg/dL Random Glucose (65-105) mg/dL Calcium (8.6-10.4) mg/dl Phosphorus (2.5-4.5) mg/dL Magnesium (1.6-2.3) mg/dL Total Bilirubin (0.2-1.3) mg/dL AST (14-36) U/L ALT (9-52) U/L Alkaline Phosphatase (38-126) U/L Troponin I (0.00-0.120) ng/mL Total Protein (6.3-8.3) g/dL Albumin (3.5-5.0) g/dL Globulin (2.2-3.9) gm/dL Albumin/Globulin Ratio (1.0-2.1) Procalcitonin (0.19-0.49) NG/ML TSH 3rd Generation (0.46-4.68) mIU/L 06/30/17 06/30/17 06/30/17 Range/Units 15:05 12:10 12:10 WBC (4.8-10.8) K/uL RBC (3.80-5.20) Mil/uL Hgb (11.0-16.0) g/dL Hct (34.0-47.0) % MCV (81.0-99.0) fL MCH (27.0-31.0) pg MCHC (33.0-37.0) g/dL RDW (11.5-14.5) % Plt Count (130-400) K/uL MPV (7.2-11.7) fL Neut % (Auto) (50.0-75.0) % Lymph % (Auto) (20.0-40.0) % [place] % (Auto) (0.0-10.0) % Eos % (Auto) (0.0-4.0) % Baso % (Auto) (0.0-2.0) % Neut # (1.8-7.0) K/uL Lymph # (1.0-4.3) K/uL [place] # (0.0-0.8) K/uL Eos # (0.0-0.7) K/uL Baso # (0.0-0.2) K/uL PT (9.7-12.2) SECONDS INR APTT 62 H D (21-34) SECONDS Puncture Site pCO2 (35-45) mm/Hg pO2 (80-100) mm/Hg HCO3 (21-28) mmol/L ABG pH (7.35-7.45) ABG Total CO2 (22-28) mmol/L ABG O2 Saturation (95-98) % ABG Base Excess (-2.0-3.0) mmol/L ABG Hemoglobin (11.7-17.4) g/dL ABG Carboxyhemoglobin (0.5-1.5) % POC ABG HHb (Measured) (0.0-5.0) % ABG Methemoglobin (0.0-3.0) % Jasvir Test A-a O2 Difference mm/Hg Respiratory Index Hgb O2 Saturation (95.0-98.0) % FiO2 % Inspiratory BiPAP Expiratory BiPAP Sodium (132-148) mmol/L Potassium (3.6-5.2) mmol/L Chloride (98-107) mmol/L Carbon Dioxide (22-30) mmol/L Anion Gap (10-20) BUN (7-17) mg/dL Creatinine (0.7-1.2) MG/DL Est GFR ( Amer) Est GFR (Non-Af Amer) POC Glucose (mg/dL) (65-110) mg/dL Random Glucose (65-105) mg/dL Calcium (8.6-10.4) mg/dl Phosphorus (2.5-4.5) mg/dL Magnesium (1.6-2.3) mg/dL Total Bilirubin (0.2-1.3) mg/dL AST (14-36) U/L ALT (9-52) U/L Alkaline Phosphatase (38-126) U/L Troponin I (0.00-0.120) ng/mL Total Protein (6.3-8.3) g/dL Albumin (3.5-5.0) g/dL Globulin (2.2-3.9) gm/dL Albumin/Globulin Ratio (1.0-2.1) Procalcitonin 0.40 (0.19-0.49) NG/ML TSH 3rd Generation 1.36 (0.46-4.68) mIU/L 06/30/17 06/30/17 06/30/17 Range/Units 11:32 08:07 06:27 WBC (4.8-10.8) K/uL RBC (3.80-5.20) Mil/uL Hgb (11.0-16.0) g/dL Hct (34.0-47.0) % MCV (81.0-99.0) fL MCH (27.0-31.0) pg MCHC (33.0-37.0) g/dL RDW (11.5-14.5) % Plt Count (130-400) K/uL MPV (7.2-11.7) fL Neut % (Auto) (50.0-75.0) % Lymph % (Auto) (20.0-40.0) % [place] % (Auto) (0.0-10.0) % Eos % (Auto) (0.0-4.0) % Baso % (Auto) (0.0-2.0) % Neut # (1.8-7.0) K/uL Lymph # (1.0-4.3) K/uL [place] # (0.0-0.8) K/uL Eos # (0.0-0.7) K/uL Baso # (0.0-0.2) K/uL PT 12.6 H (9.7-12.2) SECONDS INR 1.1 APTT 24 (21-34) SECONDS Puncture Site pCO2 (35-45) mm/Hg pO2 (80-100) mm/Hg HCO3 (21-28) mmol/L ABG pH (7.35-7.45) ABG Total CO2 (22-28) mmol/L ABG O2 Saturation (95-98) % ABG Base Excess (-2.0-3.0) mmol/L ABG Hemoglobin (11.7-17.4) g/dL ABG Carboxyhemoglobin (0.5-1.5) % POC ABG HHb (Measured) (0.0-5.0) % ABG Methemoglobin (0.0-3.0) % Jasvir Test A-a O2 Difference mm/Hg Respiratory Index Hgb O2 Saturation (95.0-98.0) % FiO2 % Inspiratory BiPAP Expiratory BiPAP Sodium 145 (132-148) mmol/L Potassium 4.0 (3.6-5.2) mmol/L Chloride 113 H (98-107) mmol/L Carbon Dioxide 17 L (22-30) mmol/L Anion Gap 19 (10-20) BUN 46 H (7-17) mg/dL Creatinine 2.2 H (0.7-1.2) MG/DL Est GFR ( Amer) 26 Est GFR (Non-Af Amer) 22 POC Glucose (mg/dL) 194 H (65-110) mg/dL Random Glucose 120 H (65-105) mg/dL Calcium 8.5 L (8.6-10.4) mg/dl Phosphorus 5.1 H (2.5-4.5) mg/dL Magnesium 1.9 (1.6-2.3) mg/dL Total Bilirubin 0.7 (0.2-1.3) mg/dL AST 49 H D (14-36) U/L ALT 61 H D (9-52) U/L Alkaline Phosphatase 92 (38-126) U/L Troponin I 0.6370 H* (0.00-0.120) ng/mL Total Protein 6.1 L (6.3-8.3) g/dL Albumin 3.2 L (3.5-5.0) g/dL Globulin 2.9 (2.2-3.9) gm/dL Albumin/Globulin Ratio 1.1 (1.0-2.1) Procalcitonin (0.19-0.49) NG/ML TSH 3rd Generation (0.46-4.68) mIU/L 06/30/17 06/30/17 06/30/17 Range/Units 06:27 05:33 05:27 WBC 15.1 H (4.8-10.8) K/uL RBC 3.19 L (3.80-5.20) Mil/uL Hgb 8.5 L (11.0-16.0) g/dL Hct 27.3 L (34.0-47.0) % MCV 85.7 (81.0-99.0) fL MCH 26.7 L (27.0-31.0) pg MCHC 31.2 L (33.0-37.0) g/dL RDW 17.8 H (11.5-14.5) % Plt Count 162 (130-400) K/uL MPV 10.3 (7.2-11.7) fL Neut % (Auto) 74.2 (50.0-75.0) % Lymph % (Auto) 16.0 L (20.0-40.0) % [place] % (Auto) 7.2 (0.0-10.0) % Eos % (Auto) 2.0 (0.0-4.0) % Baso % (Auto) 0.6 (0.0-2.0) % Neut # 11.2 H (1.8-7.0) K/uL Lymph # 2.4 (1.0-4.3) K/uL [place] # 1.1 H (0.0-0.8) K/uL Eos # 0.3 (0.0-0.7) K/uL Baso # 0.1 (0.0-0.2) K/uL PT (9.7-12.2) SECONDS INR APTT (21-34) SECONDS Puncture Site R rad pCO2 39 (35-45) mm/Hg pO2 67 L (80-100) mm/Hg HCO3 18.3 L (21-28) mmol/L ABG pH 7.27 L (7.35-7.45) ABG Total CO2 19.1 L (22-28) mmol/L ABG O2 Saturation 96.2 (95-98) % ABG Base Excess -8.4 L (-2.0-3.0) mmol/L ABG Hemoglobin 9.6 L (11.7-17.4) g/dL ABG Carboxyhemoglobin 2.2 H (0.5-1.5) % POC ABG HHb (Measured) 3.7 (0.0-5.0) % ABG Methemoglobin 0.5 (0.0-3.0) % Jasvir Test Pos A-a O2 Difference 241.0 mm/Hg Respiratory Index 3.6 Hgb O2 Saturation 93.6 L (95.0-98.0) % FiO2 50.0 % Inspiratory BiPAP 10 Expiratory BiPAP 5 Sodium (132-148) mmol/L Potassium (3.6-5.2) mmol/L Chloride (98-107) mmol/L Carbon Dioxide (22-30) mmol/L Anion Gap (10-20) BUN (7-17) mg/dL Creatinine (0.7-1.2) MG/DL Est GFR ( Amer) Est GFR (Non-Af Amer) POC Glucose (mg/dL) 156 H (65-110) mg/dL Random Glucose (65-105) mg/dL Calcium (8.6-10.4) mg/dl Phosphorus (2.5-4.5) mg/dL Magnesium (1.6-2.3) mg/dL Total Bilirubin (0.2-1.3) mg/dL AST (14-36) U/L ALT (9-52) U/L Alkaline Phosphatase (38-126) U/L Troponin I (0.00-0.120) ng/mL Total Protein (6.3-8.3) g/dL Albumin (3.5-5.0) g/dL Globulin (2.2-3.9) gm/dL Albumin/Globulin Ratio (1.0-2.1) Procalcitonin (0.19-0.49) NG/ML TSH 3rd Generation (0.46-4.68) mIU/L Laboratory Results - last 24 hr 06/30/17 06/30/17 06/30/17 05:27 05:33 06:27 WBC 15.1 H RBC 3.19 L Hgb 8.5 L Hct 27.3 L MCV 85.7 MCH 26.7 L MCHC 31.2 L RDW 17.8 H Plt Count 162 MPV 10.3 Neut % (Auto) 74.2 Lymph % (Auto) 16.0 L [place] % (Auto) 7.2 Eos % (Auto) 2.0 Baso % (Auto) 0.6 Neut # 11.2 H Lymph # 2.4 [place] # 1.1 H Eos # 0.3 Baso # 0.1 PT INR APTT Puncture Site R rad pCO2 39 pO2 67 L HCO3 18.3 L ABG pH 7.27 L ABG Total CO2 19.1 L ABG O2 Saturation 96.2 ABG Base Excess -8.4 L ABG Hemoglobin 9.6 L ABG Carboxyhemoglobin 2.2 H POC ABG HHb (Measured) 3.7 ABG Methemoglobin 0.5 Jasvir Test Pos A-a O2 Difference 241.0 Respiratory Index 3.6 Hgb O2 Saturation 93.6 L FiO2 50.0 Inspiratory BiPAP 10 Expiratory BiPAP 5 Sodium Potassium Chloride Carbon Dioxide Anion Gap BUN Creatinine Est GFR ( Amer) Est GFR (Non-Af Amer) POC Glucose (mg/dL) 156 H Random Glucose Calcium Phosphorus Magnesium Total Bilirubin AST ALT Alkaline Phosphatase Troponin I Total Protein Albumin Globulin Albumin/Globulin Ratio Procalcitonin TSH 3rd Generation 06/30/17 06/30/17 06/30/17 06:27 08:07 11:32 WBC RBC Hgb Hct MCV MCH MCHC RDW Plt Count MPV Neut % (Auto) Lymph % (Auto) [place] % (Auto) Eos % (Auto) Baso % (Auto) Neut # Lymph # [place] # Eos # Baso # PT 12.6 H INR 1.1 APTT 24 Puncture Site pCO2 pO2 HCO3 ABG pH ABG Total CO2 ABG O2 Saturation ABG Base Excess ABG Hemoglobin ABG Carboxyhemoglobin POC ABG HHb (Measured) ABG Methemoglobin Jasvir Test A-a O2 Difference Respiratory Index Hgb O2 Saturation FiO2 Inspiratory BiPAP Expiratory BiPAP Sodium 145 Potassium 4.0 Chloride 113 H Carbon Dioxide 17 L Anion Gap 19 BUN 46 H Creatinine 2.2 H Est GFR ( Amer) 26 Est GFR (Non-Af Amer) 22 POC Glucose (mg/dL) 194 H Random Glucose 120 H Calcium 8.5 L Phosphorus 5.1 H Magnesium 1.9 Total Bilirubin 0.7 AST 49 H D ALT 61 H D Alkaline Phosphatase 92 Troponin I 0.6370 H* Total Protein 6.1 L Albumin 3.2 L Globulin 2.9 Albumin/Globulin Ratio 1.1 Procalcitonin TSH 3rd Generation 06/30/17 06/30/17 06/30/17 12:10 12:10 15:05 WBC RBC Hgb Hct MCV MCH MCHC RDW Plt Count MPV Neut % (Auto) Lymph % (Auto) [place] % (Auto) Eos % (Auto) Baso % (Auto) Neut # Lymph # [place] # Eos # Baso # PT INR APTT 62 H D Puncture Site pCO2 pO2 HCO3 ABG pH ABG Total CO2 ABG O2 Saturation ABG Base Excess ABG Hemoglobin ABG Carboxyhemoglobin POC ABG HHb (Measured) ABG Methemoglobin Jasvir Test A-a O2 Difference Respiratory Index Hgb O2 Saturation FiO2 Inspiratory BiPAP Expiratory BiPAP Sodium Potassium Chloride Carbon Dioxide Anion Gap BUN Creatinine Est GFR ( Amer) Est GFR (Non-Af Amer) POC Glucose (mg/dL) Random Glucose Calcium Phosphorus Magnesium Total Bilirubin AST ALT Alkaline Phosphatase Troponin I Total Protein Albumin Globulin Albumin/Globulin Ratio Procalcitonin 0.40 TSH 3rd Generation 1.36 06/30/17 06/30/17 06/30/17 17:51 21:40 23:49 WBC RBC Hgb Hct MCV MCH MCHC RDW Plt Count MPV Neut % (Auto) Lymph % (Auto) [place] % (Auto) Eos % (Auto) Baso % (Auto) Neut # Lymph # [place] # Eos # Baso # PT INR APTT 53 H D Puncture Site pCO2 pO2 HCO3 ABG pH ABG Total CO2 ABG O2 Saturation ABG Base Excess ABG Hemoglobin ABG Carboxyhemoglobin POC ABG HHb (Measured) ABG Methemoglobin Jasvir Test A-a O2 Difference Respiratory Index Hgb O2 Saturation FiO2 Inspiratory BiPAP Expiratory BiPAP Sodium Potassium Chloride Carbon Dioxide Anion Gap BUN Creatinine Est GFR ( Amer) Est GFR (Non-Af Amer) POC Glucose (mg/dL) 170 H 202 H Random Glucose Calcium Phosphorus Magnesium Total Bilirubin AST ALT Alkaline Phosphatase Troponin I Total Protein Albumin Globulin Albumin/Globulin Ratio Procalcitonin TSH 3rd Generation Attending/Attestation - Attestation I have personally seen and examined this patient.: Yes I have fully participated in the care of the patient.: Yes I have reviewed all pertinent clinical information: Yes Notes (Text): New onset afib with rvr, needing iv metoprolol, cardizem drip then converted to NSR, patient started on heparin drip, cardizem dced, continued on metoprolol. Renal insufficiency but diuretic responsive, good diuresis overnight, with improvement in the interstitial congestion. patient failed swallow eval as pocketing food will need to be reevaluated when more communicative. Anemia ? etiology, s/p endoscopy, no active bleeding but + for gastritis. Systolic and diastolic heart failure.
[2017-06-30] MEDS: Midazolam 2 MG/2 ML VIAL IVP PRN ×2 (21:42→23:58)
[2017-07-01] MEDS: Piperacill/Tazo 2.25gm in Dex 2.25 GM/50 ML BAG IVPB SCH ×3 (01:00→17:00)
[2017-07-01] MEDS: Metoprolol 1 mg/ml Inj IVP SCH ×4 (01:35→17:46)
[2017-07-01] MEDS: Midazolam 2 MG/2 ML VIAL IVP PRN (02:32)
[2017-07-01 04:37] LABS: ABG ALLEN TEST POS; CARBOXYHEMOGLOBIN 2.4 % (0.5-1.5); DRAW SITE R RAD; HHB 12.5 % (0.0-5.0); METHEMOGLOBIN 1.2 % (0.0-3.0)
[2017-07-01 06:16] LABS: BASO # 0.1 K/uL (0.0-0.2); BASO % 0.5 % (0.0-2.0); EOS # 0.2 K/uL (0.0-0.7); HEMATOCRIT 27.2 % (34.0-47.0); LYMPH # 1.5 K/uL (1.0-4.3); LYMPH % 7.9 % (20.0-40.0); MEAN CELL VOLUME 84.4 fL (81.0-99.0); MEAN CORPUSCULAR HEMOGLOBIN 26.3 pg (27.0-31.0); MEAN CORPUSCULAR HGB CONC 31.1 g/dL (33.0-37.0); MEAN PLATELET VOLUME 10.6 fL (7.2-11.7); MONO # 1.1 K/uL (0.0-0.8); MONO % 5.6 % (0.0-10.0); NRBC % 0.5 % (0.0-2.0); PLATELET COUNT 175 K/uL (130-400); RED CELL DISTRIBUTION WIDTH 17.7 % (11.5-14.5)
[2017-07-01] MEDS: (Novolin R) Insulin Human Regular 100 units/ml vial SC SCH ×5 (06:35→17:42)
[2017-07-01 06:39] LABS: POTASSIUM 3.6 mmol/L (3.6-5.2)
[2017-07-01 06:41] LABS: ALB/GLOB RATIO 1.1 (1.0-2.1); TOTAL PROTEIN 6.3 g/dL (6.3-8.3)
[2017-07-01 06:42] LABS: CALCIUM 8.6 mg/dl (8.6-10.4); MAGNESIUM 1.6 mg/dL (1.6-2.3); PHOSPHOROUS 4.8 mg/dL (2.5-4.5)
[2017-07-01 08:36] LABS: EOSINOPHIL 1 % (0-4); NEUTROPHIL 85 % (50-75); NUCLEATED RED BLOOD CELL 2 % (0-0); TOTAL CELLS COUNTED 100
--- NOTE | 2017-07-01 09:40 | CP.PCM.PN ---
Subjective - Date & Time of Evaluation Date of Evaluation: 07/01/17 Time of Evaluation: 09:38 - Subjective Subjective: seen and examined labs reviewed good uop neg 2L w/ lasix renal us noted Objective - Vital Signs/Intake and Output Vital Signs (last 24 hours): Temp Pulse Resp BP Pulse Ox 98.4 F 80 17 133/64 99 07/01/17 04:00 07/01/17 07:53 07/01/17 07:00 07/01/17 06:36 07/01/17 07:00 Intake and Output: 07/01/17 07/01/17 06:59 18:59 Intake Total 224.8 17.9 Output Total 1003 83 Balance -778.2 -65.1 - Medications Medications: Current Medications Famotidine (Pepcid) 20 mg IVP DAILY [facility] Last Admin: 06/30/17 09:18 Dose: 20 mg Piperacillin Sod/Tazobactam Sod (Zosyn 2.25 Gm Iv Premix) 2.25 gm in 50 mls @ 100 mls/hr IVPB Q8H [facility] Last Admin: 07/01/17 01:00 Dose: 100 mls/hr Azithromycin 500 mg/ Sodium (Chloride) 250 mls @ 250 mls/hr IVPB DAILY [facility] Last Admin: 06/30/17 09:18 Dose: 250 mls/hr Vancomycin/Sodium Chloride (Vancocin) 1 gm in 200 mls @ 133.333 mls/hr IVPB Q24H [facility] Last Admin: 06/28/17 13:00 Dose: Not Given Diltiazem HCl 125 mg/ Sodium (Chloride) 125 mls @ 5 mls/hr IV .Q24H [facility]; 5 MG/ HR PRN Reason: Protocol Last Admin: 07/01/17 03:00 Dose: Not Given Heparin Sodium/Sodium Chloride (Heparin 87349 Units/250ml 1/2 Normal Saline) 25 ,000 units in 250 mls @ 7.947 mls/hr IV .Q24H PRN; Protocol; 12 UNITS/KG/HR PRN Reason: TITRATE PER PROTOCOL Last Admin: 06/30/17 08:45 Dose: 12 units/kg/hr, 7.947 mls/hr Insulin Human Regular (Novolin R) 0 unit SC Q6 [facility] PRN Reason: Protocol Last Admin: 07/01/17 07:00 Dose: Not Given Metoclopramide HCl (Reglan) 5 mg IVP ACHS [facility] Last Admin: 07/01/17 06:29 Dose: 5 mg Metoprolol Tartrate (Lopressor) 50 mg PO BID [facility] Last Admin: 06/30/17 17:48 Dose: Not Given Metoprolol Tartrate (Lopressor) 5 mg IVP Q6H [facility] Last Admin: 07/01/17 06:28 Dose: 5 mg Midazolam HCl (Versed Inj) 1 mg IVP Q2H PRN PRN Reason: Agitation Last Admin: 07/01/17 02:32 Dose: 1 mg Ondansetron HCl (Zofran Inj) 4 mg IVP Q6H PRN PRN Reason: Nausea/Vomiting - Labs Labs: 07/01/17 06:08 07/01/17 06:10 PT 12.6 SECONDS (9.7-12.2) H 06/30/17 08:07 INR 1.1 06/30/17 08:07 APTT 54 SECONDS (21-34) H 07/01/17 06:08 - Constitutional Appears: Confused, Chronically Ill (bipap) - Head Exam Head Exam: NORMAL INSPECTION - Eye Exam Eye Exam: Normal appearance - ENT Exam Additional comments: bipap mask - Respiratory Exam Respiratory Exam: Decreased Breath Sounds, Rhonchi, NORMAL BREATHING PATTERN - Cardiovascular Exam Cardiovascular Exam: REGULAR RHYTHM, RRR - GI/Abdominal Exam GI & Abdominal Exam: Distended, Soft, Normal Bowel Sounds - Extremities Exam Extremities Exam: Normal Inspection, Pedal Edema Assessment and Plan (1) CKD (chronic kidney disease) Status: Acute (2) Acute respiratory failure with hypoxemia Status: Acute (3) Anemia Status: Acute (4) Elevated troponin Status: Acute (5) Acute renal failure Status: Acute - Assessment and Plan (Free Text) Assessment: # chf / respiratory failure # cmp, ef 35% # ckd 4, baseline creatinine unclear. renal US noted # htn # a fib, new # hypernatremia plan: maintain lasix recommend iv m6mlton for hypernatremia if pt remains npo
[2017-07-01] MEDS: Azithromycin 500 MG in Sodium Chloride 0.9% 250 ML IVPB SCH (09:43)
[2017-07-01] MEDS ORDERED: Digoxin 500 mcg/2ml (0.5 mg/2ml) Inj IVP ONE (10:45)
[2017-07-01 11:01] VITALS: PULSE 125
--- NOTE | 2017-07-01 12:10 | CP.PCM.PN ---
Subjective - Date & Time of Evaluation Date of Evaluation: 07/01/17 Time of Evaluation: 12:09 - Subjective Subjective: ON VENTI MASK SOB PAROXYMAL A. FIB ON LOPRESSOR SUPPORTIVE TREATMENT CR 2.0 Objective - Vital Signs/Intake and Output Vital Signs (last 24 hours): Temp Pulse Resp BP Pulse Ox 98.4 F 80 17 133/64 99 07/01/17 04:00 07/01/17 07:53 07/01/17 07:00 07/01/17 06:36 07/01/17 07:00 Intake and Output: 07/01/17 07/01/17 11:59 23:59 Intake Total 254.8 Output Total 1614 Balance -1359.2 - Medications Medications: Current Medications Famotidine (Pepcid) 20 mg IVP DAILY [facility] Last Admin: 07/01/17 09:43 Dose: 20 mg Piperacillin Sod/Tazobactam Sod (Zosyn 2.25 Gm Iv Premix) 2.25 gm in 50 mls @ 100 mls/hr IVPB Q8H [facility] Last Admin: 07/01/17 09:41 Dose: 100 mls/hr Azithromycin 500 mg/ Sodium (Chloride) 250 mls @ 250 mls/hr IVPB DAILY [facility] Last Admin: 07/01/17 09:43 Dose: 250 mls/hr Vancomycin/Sodium Chloride (Vancocin) 1 gm in 200 mls @ 133.333 mls/hr IVPB Q24H [facility] Last Admin: 06/28/17 13:00 Dose: Not Given Diltiazem HCl 125 mg/ Sodium (Chloride) 125 mls @ 5 mls/hr IV .Q24H ASIM; 5 MG/ HR PRN Reason: Protocol Last Admin: 07/01/17 03:00 Dose: Not Given Heparin Sodium/Sodium Chloride (Heparin 11889 Units/250ml 1/2 Normal Saline) 25 ,000 units in 250 mls @ 7.947 mls/hr IV .Q24H PRN; Protocol; 12 UNITS/KG/HR PRN Reason: TITRATE PER PROTOCOL Last Admin: 06/30/17 08:45 Dose: 12 units/kg/hr, 7.947 mls/hr Potassium Chloride (Potassium Chloride 10 Meq/100 Ml) 10 meq in 100 mls @ 100 mls/hr IVPB Q2H [facility] Stop: 07/01/17 13:59 Last Admin: 07/01/17 11:01 Dose: 100 mls/hr Dexmedetomidine HCl 200 mcg/ (Sodium Chloride) 50 mls @ 64.92 mls/hr IV TITR PRN; Protocol; 4 MCG/KG/HR PRN Reason: Agitation Insulin Human Regular (Novolin R) 0 unit SC Q6 [facility] PRN Reason: Protocol Last Admin: 07/01/17 07:00 Dose: Not Given Metoclopramide HCl (Reglan) 5 mg IVP ACHS [facility] Last Admin: 07/01/17 06:29 Dose: 5 mg Metoprolol Tartrate (Lopressor) 50 mg PO BID [facility] Last Admin: 07/01/17 09:44 Dose: Not Given Metoprolol Tartrate (Lopressor) 5 mg IVP Q6H [facility] Last Admin: 07/01/17 06:28 Dose: 5 mg Midazolam HCl (Versed Inj) 1 mg IVP Q2H PRN PRN Reason: Agitation Last Admin: 07/01/17 02:32 Dose: 1 mg Ondansetron HCl (Zofran Inj) 4 mg IVP Q6H PRN PRN Reason: Nausea/Vomiting - Labs Labs: 07/01/17 06:08 07/01/17 06:10 PT 12.6 SECONDS (9.7-12.2) H 06/30/17 08:07 INR 1.1 06/30/17 08:07 APTT 54 SECONDS (21-34) H 07/01/17 06:08
[2017-07-01] MEDS ORDERED: Dexmedetomidine Hydrochloride 200 MCG in Sodium Chloride 0.9% 48 ML IV PRN (12:13)
[2017-07-01 13:01] LABS: RBC URINE 32 /hpf (0-3); URINE BILIRUBIN NEGATIVE (NEGATIVE); URINE BLOOD 3+ (NEGATIVE); URINE COLOR Colorless (YELLOW); URINE GLUCOSE (UA) 1+ mg/dL (Normal); URINE KETONE NEGATIVE (NEGATIVE); URINE LEUKOCYTE ESTERASE NEG Leu/uL (Negative); URINE PROTEIN NEGATIVE (NEGATIVE); URINE UROBILINOGEN NORMAL mg/dL (0.2-1.0); WBC URINE 2 /hpf (0-5)
--- NOTE | 2017-07-01 13:43 | PN ---
LOCATION: ICU 12. SUBJECTIVE: This is a 77-year-old female seen and examined with the nursing and medical staff in the intensive care unit, still intubated and NG tube feeding, mildly sedated. No reported recent results of active bleeding. Most recent lab result today showed white blood cells of 19 with low hemoglobin 8.5 and hematocrit 27.2, but with normal platelet count and increased PTT to 54 with PT of 12.6 with abnormal ABGs. CO2 of 19 indicative of metabolic acidosis with increased BUN at 51 and creatinine 2.0. Blood glucose level 192 with phosphorus elevated at 4.9 with AST elevated to 43 and ALT 54 with low albumin 3.3. The most recent chest x-ray done yesterday report is seen with less infiltrate bilaterally with mild congestive heart failure. PHYSICAL EXAMINATION: GENERAL: A 77-year-old female, intubated, somewhat sedated. VITAL SIGNS: Afebrile with recent pulse of 84 and blood pressure 136/62. HEENT: Showed pale dry oral mucous membranes. Anicteric sclerae. LUNGS: Few scattered crepitation, decreased air entry at bases. HEART: Positive S1 and S2. ABDOMEN: Soft. Bowel sounds are present with mild generalized tenderness and NG tube has been placed for feeding as well as medication intake. EXTREMITIES: Slight lower extremity edematous changes. No clubbing or cyanosis. NEUROLOGIC: No new reported neurological deficits, sensory or motor. IMPRESSION: 1. Pneumonia, mild congestive heart failure, hypoxia with acute respiratory failure, the patient is intubated. 2. Chronic renal disease. 3. Anemia, most likely secondary to above versus gastrointestinal blood loss. 4. Malnutrition with hypoalbuminemia. 5. Reported syncopal episode readmission by recent history. 6. Elevated troponin level with possible massive myocardial infarction. 7. Electrolyte imbalance with hyperlipidemia. 8. Known history of but not limited to osteoarthritis, hyperlipidemia, as well as hypertension. 9. Peptic ulcer disease with recent history diagnosed by upper endoscopy. SUGGESTIONS: 1. Continue current management. 2. Central hyperalimentation in addition to her NG tube feeding. 3. Correct any underlying electrolyte imbalance as well as her coagulopathy. 4. The patient is a candidate for PEG insertion if her condition continues. 5. That to be discussed with admitting medical team as well as the family members. We will follow up closely with you. Diana Cazares MD [facility] # [id number]
[2017-07-01] MEDS: Heparin25000 units/250ml 1/2NS 25,000 UNITS/250 ML BAG IV PRN (15:03)
--- NOTE | 2017-07-01 15:45 | CP.CCUPN ---
<Eliza Coreas - Last Filed: 07/01/17 15:45> CCU Subjective - Physician Review Subjective (Free Text): Patient was seen and examined at bedside in the morning. Patient is lethargic and with BiPAP on. Review of systems was no obtained. 07/01/17 15:45 CCU Objective - Vital Signs / Intake & Output Vital Signs (Last 4 hours): Vital Signs Temp Pulse 07/01/17 13:40 87 07/01/17 12:00 98.1 F Intake and Output (Last 8hrs): Intake & Output 07/01/17 07/01/17 07/01/17 06:59 14:59 22:59 Intake Total 173.2 94.5 250 Output Total 664 1033 Balance -490.8 -938.5 250 Intake: IV 40 0 250 Intake, IV Amount 133.2 94.5 Right Antecubital 31.6 Right Distal Port Femoral 63.2 7.9 Right Forearm 45 Right Proximal Port 70 10 Femoral Output: Urine 664 1033 Urethral (Neff) 664 1033 - Physical Exam Head: Positive for: Atraumatic, Normocephalic Extroacular Muscles: Positive for: EOMI Mouth: Positive for: Moist Mucous Membranes Respiratory/Chest: Positive for: Clear to Auscultation. Negative for: Wheezes, Rales, Rhonchi Cardiovascular: Positive for: Normal S1, S2, Irregular Rhythm, Tachycardic. Negative for: Bradycardic Abdomen: Positive for: Distention, Normal Bowel Sounds. Negative for: Tenderness Upper Extremity: Positive for: Normal Inspection. Negative for: Edema Lower Extremity: Positive for: Normal Inspection. Negative for: Edema Skin: Positive for: Warm, Dry, Normal Color Psychiatric: Positive for: Alert, Lethargic - Medications Active Medications: Active Medications Generic Name Dose Route Start Last Admin Trade Name Freq PRN Reason Stop Dose Admin Famotidine 20 mg 06/26/17 10:00 07/01/17 09:43 Pepcid IVP 20 mg DAILY ASIM Administration Piperacillin Sod/Tazobactam Sod 2.25 gm in 50 mls @ 100 mls/hr 06/26/17 09:00 07/01/17 09:41 Zosyn 2.25 Gm Iv Premix IVPB 100 mls/hr Q8H ASIM Administration Azithromycin 500 mg/ Sodium 250 mls @ 250 mls/hr 06/26/17 10:00 07/01/17 09: 43 Chloride IVPB 250 mls/hr DAILY ASIM Administration Vancomycin/Sodium Chloride 1 gm in 200 mls @ 133.333 mls/hr 06/27/17 12:00 13:00 Vancocin IVPB Not Given Q24H ASIM Diltiazem HCl 125 mg/ Sodium 125 mls @ 5 mls/hr 06/30/17 03:00 07/01/17 11:00 Chloride IV 15 mg/hr .Q24H ASIM 15 mls/hr Protocol Titration 5 MG/HR Heparin Sodium/Sodium Chloride 25,000 units in 250 mls @ 7.947 mls/hr 08:36 07/01/17 15:03 Heparin 97800 Units/250ml 1/2 Normal Saline IV 12 units/kg/hr .Q24H PRN 7.947 mls/hr TITRATE PER PROTOCOL Administration Protocol 12 UNITS/KG/HR Dexmedetomidine HCl 200 mcg/ 50 mls @ 64.92 mls/hr 07/01/17 12:13 Sodium Chloride IV TITR PRN Agitation Protocol 4 MCG/KG/HR Insulin Human Regular 0 unit 06/27/17 13:02 07/01/17 12:00 Novolin R SC Not Given Q6 [facility] Protocol Metoclopramide HCl 5 mg 06/28/17 16:30 07/01/17 13:02 Reglan IVP Not Given ACHS [facility] Metoprolol Tartrate 50 mg 06/30/17 10:00 07/01/17 09:44 Lopressor PO Not Given BID ASIM Metoprolol Tartrate 5 mg 06/30/17 12:45 07/01/17 12:57 Lopressor IVP 5 mg Q6H ASIM Administration Midazolam HCl 1 mg 06/27/17 18:43 07/01/17 02:32 Versed Inj IVP 1 mg Q2H PRN Administration Agitation Ondansetron HCl 4 mg 06/29/17 14:17 Zofran Inj IVP Q6H PRN Nausea/Vomiting - Patient Studies Lab Studies: Lab Studies 07/01/17 07/01/17 07/01/17 Range/Units 12:46 12:46 12:46 WBC (4.8-10.8) K/uL RBC (3.80-5.20) Mil/uL Hgb (11.0-16.0) g/dL Hct (34.0-47.0) % MCV (81.0-99.0) fL MCH (27.0-31.0) pg MCHC (33.0-37.0) g/dL RDW (11.5-14.5) % Plt Count (130-400) K/uL MPV (7.2-11.7) fL Neut % (Auto) (50.0-75.0) % Lymph % (Auto) (20.0-40.0) % [place] % (Auto) (0.0-10.0) % Eos % (Auto) (0.0-4.0) % Baso % (Auto) (0.0-2.0) % Neut # (1.8-7.0) K/uL Lymph # (1.0-4.3) K/uL [place]pton # (0.0-0.8) K/uL Eos # (0.0-0.7) K/uL Baso # (0.0-0.2) K/uL Neutrophils % (Manual) (50-75) % Lymphocytes % (Manual) (20-40) % Monocytes % (Manual) (0-10) % Eosinophils % (Manual) (0-4) % Nucleated RBC % (0-0) % Platelet Estimate (NORMAL) Polychromasia Hypochromasia (manual) Anisocytosis (manual) Microcytosis (manual) Target Cells Tear Drop Cells APTT (21-34) SECONDS Puncture Site pCO2 (35-45) mm/Hg pO2 (80-100) mm/Hg HCO3 (21-28) mmol/L ABG pH (7.35-7.45) ABG Total CO2 (22-28) mmol/L ABG O2 Saturation (95-98) % ABG Base Excess (-2.0-3.0) mmol/L ABG Hemoglobin (11.7-17.4) g/dL ABG Carboxyhemoglobin (0.5-1.5) % POC ABG HHb (Measured) (0.0-5.0) % ABG Methemoglobin (0.0-3.0) % Jasvir Test A-a O2 Difference mm/Hg Respiratory Index Hgb O2 Saturation (95.0-98.0) % FiO2 % Inspiratory BiPAP Expiratory BiPAP Sodium (132-148) mmol/L Potassium (3.6-5.2) mmol/L Chloride (98-107) mmol/L Carbon Dioxide (22-30) mmol/L Anion Gap (10-20) BUN (7-17) mg/dL Creatinine (0.7-1.2) MG/DL Est GFR ( Amer) Est GFR (Non-Af Amer) POC Glucose (mg/dL) (65-110) mg/dL Random Glucose (65-105) mg/dL Calcium (8.6-10.4) mg/dl Phosphorus (2.5-4.5) mg/dL Magnesium (1.6-2.3) mg/dL Total Bilirubin (0.2-1.3) mg/dL AST (14-36) U/L ALT (9-52) U/L Alkaline Phosphatase (38-126) U/L Total Protein (6.3-8.3) g/dL Albumin (3.5-5.0) g/dL Globulin (2.2-3.9) gm/dL Albumin/Globulin Ratio (1.0-2.1) Procalcitonin (0.19-0.49) NG/ML Urine Color Colorless (YELLOW) Urine Clarity Clear (Clear) Urine pH 5.0 (5.0-8.0) Ur Specific [place] 1.009 (1.003-1.030) Urine Protein Negative (NEGATIVE) mg/dL Urine Glucose (UA) 1+ (Normal) mg/dL Urine Ketones Negative (NEGATIVE) mg/dL Urine Blood 3+ H (NEGATIVE) Urine Nitrate Negative (NEGATIVE) Urine Bilirubin Negative (NEGATIVE) Urine Urobilinogen Normal (0.2-1.0) mg/dL Ur Leukocyte Esterase Neg (Negative) Reed/uL Urine WBC (Auto) 2 (0-5) /hpf Urine RBC (Auto) 32 H (0-3) /hpf Ur Squamous Epith Cells < 1 (0-5) /hpf Ur Random Creatinine 11.2 mg/dL U Random Total Protein 23.0 H Cancelled 07/01/17 07/01/17 07/01/17 Range/Units 11:51 06:34 06:10 WBC (4.8-10.8) K/uL RBC (3.80-5.20) Mil/uL Hgb (11.0-16.0) g/dL Hct (34.0-47.0) % MCV (81.0-99.0) fL MCH (27.0-31.0) pg MCHC (33.0-37.0) g/dL RDW (11.5-14.5) % Plt Count (130-400) K/uL MPV (7.2-11.7) fL Neut % (Auto) (50.0-75.0) % Lymph % (Auto) (20.0-40.0) % Upton % (Auto) (0.0-10.0) % Eos % (Auto) (0.0-4.0) % Baso % (Auto) (0.0-2.0) % Neut # (1.8-7.0) K/uL Lymph # (1.0-4.3) K/uL Upton # (0.0-0.8) K/uL Eos # (0.0-0.7) K/uL Baso # (0.0-0.2) K/uL Neutrophils % (Manual) (50-75) % Lymphocytes % (Manual) (20-40) % Monocytes % (Manual) (0-10) % Eosinophils % (Manual) (0-4) % Nucleated RBC % (0-0) % Platelet Estimate (NORMAL) Polychromasia Hypochromasia (manual) Anisocytosis (manual) Microcytosis (manual) Target Cells Tear Drop Cells APTT (21-34) SECONDS Puncture Site pCO2 (35-45) mm/Hg pO2 (80-100) mm/Hg HCO3 (21-28) mmol/L ABG pH (7.35-7.45) ABG Total CO2 (22-28) mmol/L ABG O2 Saturation (95-98) % ABG Base Excess (-2.0-3.0) mmol/L ABG Hemoglobin (11.7-17.4) g/dL ABG Carboxyhemoglobin (0.5-1.5) % POC ABG HHb (Measured) (0.0-5.0) % ABG Methemoglobin (0.0-3.0) % Jasvir Test A-a O2 Difference mm/Hg Respiratory Index Hgb O2 Saturation (95.0-98.0) % FiO2 % Inspiratory BiPAP Expiratory BiPAP Sodium 147 (132-148) mmol/L Potassium 3.6 (3.6-5.2) mmol/L Chloride 112 H (98-107) mmol/L Carbon Dioxide 19 L (22-30) mmol/L Anion Gap 20 (10-20) BUN 51 H (7-17) mg/dL Creatinine 2.0 H (0.7-1.2) MG/DL Est GFR ( Amer) 29 Est GFR (Non-Af Amer) 24 POC Glucose (mg/dL) 190 H 198 H (65-110) mg/dL Random Glucose 192 H (65-105) mg/dL Calcium 8.6 (8.6-10.4) mg/dl Phosphorus 4.8 H (2.5-4.5) mg/dL Magnesium 1.6 (1.6-2.3) mg/dL Total Bilirubin 1.0 (0.2-1.3) mg/dL AST 43 H (14-36) U/L ALT 54 H (9-52) U/L Alkaline Phosphatase 83 (38-126) U/L Total Protein 6.3 (6.3-8.3) g/dL Albumin 3.3 L (3.5-5.0) g/dL Globulin 3.1 (2.2-3.9) gm/dL Albumin/Globulin Ratio 1.1 (1.0-2.1) Procalcitonin (0.19-0.49) NG/ML Urine Color (YELLOW) Urine Clarity (Clear) Urine pH (5.0-8.0) Ur Specific [place] (1.003-1.030) Urine Protein (NEGATIVE) mg/dL Urine Glucose (UA) (Normal) mg/dL Urine Ketones (NEGATIVE) mg/dL Urine Blood (NEGATIVE) Urine Nitrate (NEGATIVE) Urine Bilirubin (NEGATIVE) Urine Urobilinogen (0.2-1.0) mg/dL Ur Leukocyte Esterase (Negative) Reed/uL Urine WBC (Auto) (0-5) /hpf Urine RBC (Auto) (0-3) /hpf Ur Squamous Epith Cells (0-5) /hpf Ur Random Creatinine mg/dL U Random Total Protein 07/01/17 07/01/17 07/01/17 Range/Units 06:08 06:08 04:26 WBC 19.0 H (4.8-10.8) K/uL RBC 3.22 L (3.80-5.20) Mil/uL Hgb 8.5 L (11.0-16.0) g/dL Hct 27.2 L (34.0-47.0) % MCV 84.4 (81.0-99.0) fL MCH 26.3 L (27.0-31.0) pg MCHC 31.1 L (33.0-37.0) g/dL RDW 17.7 H (11.5-14.5) % Plt Count 175 (130-400) K/uL MPV 10.6 (7.2-11.7) fL Neut % (Auto) 85.0 H (50.0-75.0) % Lymph % (Auto) 7.9 L (20.0-40.0) % Upton % (Auto) 5.6 (0.0-10.0) % Eos % (Auto) 1.0 (0.0-4.0) % Baso % (Auto) 0.5 (0.0-2.0) % Neut # 16.2 H (1.8-7.0) K/uL Lymph # 1.5 (1.0-4.3) K/uL Upton # 1.1 H (0.0-0.8) K/uL Eos # 0.2 (0.0-0.7) K/uL Baso # 0.1 (0.0-0.2) K/uL Neutrophils % (Manual) 85 H (50-75) % Lymphocytes % (Manual) 11 L (20-40) % Monocytes % (Manual) 3 (0-10) % Eosinophils % (Manual) 1 (0-4) % Nucleated RBC % 2 H (0-0) % Platelet Estimate Normal (NORMAL) Polychromasia Slight Hypochromasia (manual) Slight Anisocytosis (manual) Slight Microcytosis (manual) Slight Target Cells Slight Tear Drop Cells Slight APTT 54 H (21-34) SECONDS Puncture Site R rad pCO2 42 (35-45) mm/Hg pO2 48 L (80-100) mm/Hg HCO3 19.5 L (21-28) mmol/L ABG pH 7.28 L (7.35-7.45) ABG Total CO2 21.0 L (22-28) mmol/L ABG O2 Saturation 87.0 L (95-98) % ABG Base Excess -6.6 L (-2.0-3.0) mmol/L ABG Hemoglobin 9.5 L (11.7-17.4) g/dL ABG Carboxyhemoglobin 2.4 H (0.5-1.5) % POC ABG HHb (Measured) 12.5 H (0.0-5.0) % ABG Methemoglobin 1.2 (0.0-3.0) % Jasvir Test Pos A-a O2 Difference 256.0 mm/Hg Respiratory Index 5.3 Hgb O2 Saturation 84.0 L (95.0-98.0) % FiO2 50.0 % Inspiratory BiPAP 10 Expiratory BiPAP 5 Sodium (132-148) mmol/L Potassium (3.6-5.2) mmol/L Chloride (98-107) mmol/L Carbon Dioxide (22-30) mmol/L Anion Gap (10-20) BUN (7-17) mg/dL Creatinine (0.7-1.2) MG/DL Est GFR ( Amer) Est GFR (Non-Af Amer) POC Glucose (mg/dL) (65-110) mg/dL Random Glucose (65-105) mg/dL Calcium (8.6-10.4) mg/dl Phosphorus (2.5-4.5) mg/dL Magnesium (1.6-2.3) mg/dL Total Bilirubin (0.2-1.3) mg/dL AST (14-36) U/L ALT (9-52) U/L Alkaline Phosphatase (38-126) U/L Total Protein (6.3-8.3) g/dL Albumin (3.5-5.0) g/dL Globulin (2.2-3.9) gm/dL Albumin/Globulin Ratio (1.0-2.1) Procalcitonin (0.19-0.49) NG/ML Urine Color (YELLOW) Urine Clarity (Clear) Urine pH (5.0-8.0) Ur Specific [place] (1.003-1.030) Urine Protein (NEGATIVE) mg/dL Urine Glucose (UA) (Normal) mg/dL Urine Ketones (NEGATIVE) mg/dL Urine Blood (NEGATIVE) Urine Nitrate (NEGATIVE) Urine Bilirubin (NEGATIVE) Urine Urobilinogen (0.2-1.0) mg/dL Ur Leukocyte Esterase (Negative) Reed/uL Urine WBC (Auto) (0-5) /hpf Urine RBC (Auto) (0-3) /hpf Ur Squamous Epith Cells (0-5) /hpf Ur Random Creatinine mg/dL U Random Total Protein 06/30/17 06/30/17 06/30/17 Range/Units 23:49 21:40 17:51 WBC (4.8-10.8) K/uL RBC (3.80-5.20) Mil/uL Hgb (11.0-16.0) g/dL Hct (34.0-47.0) % MCV (81.0-99.0) fL MCH (27.0-31.0) pg MCHC (33.0-37.0) g/dL RDW (11.5-14.5) % Plt Count (130-400) K/uL MPV (7.2-11.7) fL Neut % (Auto) (50.0-75.0) % Lymph % (Auto) (20.0-40.0) % Upton % (Auto) (0.0-10.0) % Eos % (Auto) (0.0-4.0) % Baso % (Auto) (0.0-2.0) % Neut # (1.8-7.0) K/uL Lymph # (1.0-4.3) K/uL Upton # (0.0-0.8) K/uL Eos # (0.0-0.7) K/uL Baso # (0.0-0.2) K/uL Neutrophils % (Manual) (50-75) % Lymphocytes % (Manual) (20-40) % Monocytes % (Manual) (0-10) % Eosinophils % (Manual) (0-4) % Nucleated RBC % (0-0) % Platelet Estimate (NORMAL) Polychromasia Hypochromasia (manual) Anisocytosis (manual) Microcytosis (manual) Target Cells Tear Drop Cells APTT 53 H D (21-34) SECONDS Puncture Site pCO2 (35-45) mm/Hg pO2 (80-100) mm/Hg HCO3 (21-28) mmol/L ABG pH (7.35-7.45) ABG Total CO2 (22-28) mmol/L ABG O2 Saturation (95-98) % ABG Base Excess (-2.0-3.0) mmol/L ABG Hemoglobin (11.7-17.4) g/dL ABG Carboxyhemoglobin (0.5-1.5) % POC ABG HHb (Measured) (0.0-5.0) % ABG Methemoglobin (0.0-3.0) % Jasvir Test A-a O2 Difference mm/Hg Respiratory Index Hgb O2 Saturation (95.0-98.0) % FiO2 % Inspiratory BiPAP Expiratory BiPAP Sodium (132-148) mmol/L Potassium (3.6-5.2) mmol/L Chloride (98-107) mmol/L Carbon Dioxide (22-30) mmol/L Anion Gap (10-20) BUN (7-17) mg/dL Creatinine (0.7-1.2) MG/DL Est GFR ( Amer) Est GFR (Non-Af Amer) POC Glucose (mg/dL) 202 H 170 H (65-110) mg/dL Random Glucose (65-105) mg/dL Calcium (8.6-10.4) mg/dl Phosphorus (2.5-4.5) mg/dL Magnesium (1.6-2.3) mg/dL Total Bilirubin (0.2-1.3) mg/dL AST (14-36) U/L ALT (9-52) U/L Alkaline Phosphatase (38-126) U/L Total Protein (6.3-8.3) g/dL Albumin (3.5-5.0) g/dL Globulin (2.2-3.9) gm/dL Albumin/Globulin Ratio (1.0-2.1) Procalcitonin (0.19-0.49) NG/ML Urine Color (YELLOW) Urine Clarity (Clear) Urine pH (5.0-8.0) Ur Specific [place] (1.003-1.030) Urine Protein (NEGATIVE) mg/dL Urine Glucose (UA) (Normal) mg/dL Urine Ketones (NEGATIVE) mg/dL Urine Blood (NEGATIVE) Urine Nitrate (NEGATIVE) Urine Bilirubin (NEGATIVE) Urine Urobilinogen (0.2-1.0) mg/dL Ur Leukocyte Esterase (Negative) Reed/uL Urine WBC (Auto) (0-5) /hpf Urine RBC (Auto) (0-3) /hpf Ur Squamous Epith Cells (0-5) /hpf Ur Random Creatinine mg/dL U Random Total Protein 06/30/17 Range/Units 12:10 WBC (4.8-10.8) K/uL RBC (3.80-5.20) Mil/uL Hgb (11.0-16.0) g/dL Hct (34.0-47.0) % MCV (81.0-99.0) fL MCH (27.0-31.0) pg MCHC (33.0-37.0) g/dL RDW (11.5-14.5) % Plt Count (130-400) K/uL MPV (7.2-11.7) fL Neut % (Auto) (50.0-75.0) % Lymph % (Auto) (20.0-40.0) % [place]pton % (Auto) (0.0-10.0) % Eos % (Auto) (0.0-4.0) % Baso % (Auto) (0.0-2.0) % Neut # (1.8-7.0) K/uL Lymph # (1.0-4.3) K/uL Upton # (0.0-0.8) K/uL Eos # (0.0-0.7) K/uL Baso # (0.0-0.2) K/uL Neutrophils % (Manual) (50-75) % Lymphocytes % (Manual) (20-40) % Monocytes % (Manual) (0-10) % Eosinophils % (Manual) (0-4) % Nucleated RBC % (0-0) % Platelet Estimate (NORMAL) Polychromasia Hypochromasia (manual) Anisocytosis (manual) Microcytosis (manual) Target Cells Tear Drop Cells APTT (21-34) SECONDS Puncture Site pCO2 (35-45) mm/Hg pO2 (80-100) mm/Hg HCO3 (21-28) mmol/L ABG pH (7.35-7.45) ABG Total CO2 (22-28) mmol/L ABG O2 Saturation (95-98) % ABG Base Excess (-2.0-3.0) mmol/L ABG Hemoglobin (11.7-17.4) g/dL ABG Carboxyhemoglobin (0.5-1.5) % POC ABG HHb (Measured) (0.0-5.0) % ABG Methemoglobin (0.0-3.0) % Jasvir Test A-a O2 Difference mm/Hg Respiratory Index Hgb O2 Saturation (95.0-98.0) % FiO2 % Inspiratory BiPAP Expiratory BiPAP Sodium (132-148) mmol/L Potassium (3.6-5.2) mmol/L Chloride (98-107) mmol/L Carbon Dioxide (22-30) mmol/L Anion Gap (10-20) BUN (7-17) mg/dL Creatinine (0.7-1.2) MG/DL Est GFR ( Amer) Est GFR (Non-Af Amer) POC Glucose (mg/dL) (65-110) mg/dL Random Glucose (65-105) mg/dL Calcium (8.6-10.4) mg/dl Phosphorus (2.5-4.5) mg/dL Magnesium (1.6-2.3) mg/dL Total Bilirubin (0.2-1.3) mg/dL AST (14-36) U/L ALT (9-52) U/L Alkaline Phosphatase (38-126) U/L Total Protein (6.3-8.3) g/dL Albumin (3.5-5.0) g/dL Globulin (2.2-3.9) gm/dL Albumin/Globulin Ratio (1.0-2.1) Procalcitonin 0.40 (0.19-0.49) NG/ML Urine Color (YELLOW) Urine Clarity (Clear) Urine pH (5.0-8.0) Ur Specific [place] (1.003-1.030) Urine Protein (NEGATIVE) mg/dL Urine Glucose (UA) (Normal) mg/dL Urine Ketones (NEGATIVE) mg/dL Urine Blood (NEGATIVE) Urine Nitrate (NEGATIVE) Urine Bilirubin (NEGATIVE) Urine Urobilinogen (0.2-1.0) mg/dL Ur Leukocyte Esterase (Negative) Reed/uL Urine WBC (Auto) (0-5) /hpf Urine RBC (Auto) (0-3) /hpf Ur Squamous Epith Cells (0-5) /hpf Ur Random Creatinine mg/dL U Random Total Protein Laboratory Results - last 24 hr 06/30/17 06/30/17 06/30/17 12:10 17:51 21:40 WBC RBC Hgb Hct MCV MCH MCHC RDW Plt Count MPV Neut % (Auto) Lymph % (Auto) Upton % (Auto) Eos % (Auto) Baso % (Auto) Neut # Lymph # [place] # Eos # Baso # Neutrophils % (Manual) Lymphocytes % (Manual) Monocytes % (Manual) Eosinophils % (Manual) Nucleated RBC % Platelet Estimate Polychromasia Hypochromasia (manual) Anisocytosis (manual) Microcytosis (manual) Target Cells Tear Drop Cells APTT 53 H D Puncture Site pCO2 pO2 HCO3 ABG pH ABG Total CO2 ABG O2 Saturation ABG Base Excess ABG Hemoglobin ABG Carboxyhemoglobin POC ABG HHb (Measured) ABG Methemoglobin Jasvir Test A-a O2 Difference Respiratory Index Hgb O2 Saturation FiO2 Inspiratory BiPAP Expiratory BiPAP Sodium Potassium Chloride Carbon Dioxide Anion Gap BUN Creatinine Est GFR ( Amer) Est GFR (Non-Af Amer) POC Glucose (mg/dL) 170 H Random Glucose Calcium Phosphorus Magnesium Total Bilirubin AST ALT Alkaline Phosphatase Total Protein Albumin Globulin Albumin/Globulin Ratio Procalcitonin 0.40 Urine Color Urine Clarity Urine pH Ur Specific [place] Urine Protein Urine Glucose (UA) Urine Ketones Urine Blood Urine Nitrate Urine Bilirubin Urine Urobilinogen Ur Leukocyte Esterase Urine WBC (Auto) Urine RBC (Auto) Ur Squamous Epith Cells Ur Random Creatinine U Random Total Protein 06/30/17 07/01/17 07/01/17 23:49 04:26 06:08 WBC RBC Hgb Hct MCV MCH MCHC RDW Plt Count MPV Neut % (Auto) Lymph % (Auto) [place] % (Auto) Eos % (Auto) Baso % (Auto) Neut # Lymph # [place] # Eos # Baso # Neutrophils % (Manual) Lymphocytes % (Manual) Monocytes % (Manual) Eosinophils % (Manual) Nucleated RBC % Platelet Estimate Polychromasia Hypochromasia (manual) Anisocytosis (manual) Microcytosis (manual) Target Cells Tear Drop Cells APTT 54 H Puncture Site R rad pCO2 42 pO2 48 L HCO3 19.5 L ABG pH 7.28 L ABG Total CO2 21.0 L ABG O2 Saturation 87.0 L ABG Base Excess -6.6 L ABG Hemoglobin 9.5 L ABG Carboxyhemoglobin 2.4 H POC ABG HHb (Measured) 12.5 H ABG Methemoglobin 1.2 Jasvir Test Pos A-a O2 Difference 256.0 Respiratory Index 5.3 Hgb O2 Saturation 84.0 L FiO2 50.0 Inspiratory BiPAP 10 Expiratory BiPAP 5 Sodium Potassium Chloride Carbon Dioxide Anion Gap BUN Creatinine Est GFR ( Amer) Est GFR (Non-Af Amer) POC Glucose (mg/dL) 202 H Random Glucose Calcium Phosphorus Magnesium Total Bilirubin AST ALT Alkaline Phosphatase Total Protein Albumin Globulin Albumin/Globulin Ratio Procalcitonin Urine Color Urine Clarity Urine pH Ur Specific [place] Urine Protein Urine Glucose (UA) Urine Ketones Urine Blood Urine Nitrate Urine Bilirubin Urine Urobilinogen Ur Leukocyte Esterase Urine WBC (Auto) Urine RBC (Auto) Ur Squamous Epith Cells Ur Random Creatinine U Random Total Protein 07/01/17 07/01/17 07/01/17 06:08 06:10 06:34 WBC 19.0 H RBC 3.22 L Hgb 8.5 L Hct 27.2 L MCV 84.4 MCH 26.3 L MCHC 31.1 L RDW 17.7 H Plt Count 175 MPV 10.6 Neut % (Auto) 85.0 H Lymph % (Auto) 7.9 L [place] % (Auto) 5.6 Eos % (Auto) 1.0 Baso % (Auto) 0.5 Neut # 16.2 H Lymph # 1.5 Upton # 1.1 H Eos # 0.2 Baso # 0.1 Neutrophils % (Manual) 85 H Lymphocytes % (Manual) 11 L Monocytes % (Manual) 3 Eosinophils % (Manual) 1 Nucleated RBC % 2 H Platelet Estimate Normal Polychromasia Slight Hypochromasia (manual) Slight Anisocytosis (manual) Slight Microcytosis (manual) Slight Target Cells Slight Tear Drop Cells Slight APTT Puncture Site pCO2 pO2 HCO3 ABG pH ABG Total CO2 ABG O2 Saturation ABG Base Excess ABG Hemoglobin ABG Carboxyhemoglobin POC ABG HHb (Measured) ABG Methemoglobin Jasvir Test A-a O2 Difference Respiratory Index Hgb O2 Saturation FiO2 Inspiratory BiPAP Expiratory BiPAP Sodium 147 Potassium 3.6 Chloride 112 H Carbon Dioxide 19 L Anion Gap 20 BUN 51 H Creatinine 2.0 H Est GFR ( Amer) 29 Est GFR (Non-Af Amer) 24 POC Glucose (mg/dL) 198 H Random Glucose 192 H Calcium 8.6 Phosphorus 4.8 H Magnesium 1.6 Total Bilirubin 1.0 AST 43 H ALT 54 H Alkaline Phosphatase 83 Total Protein 6.3 Albumin 3.3 L Globulin 3.1 Albumin/Globulin Ratio 1.1 Procalcitonin Urine Color Urine Clarity Urine pH Ur Specific [place] Urine Protein Urine Glucose (UA) Urine Ketones Urine Blood Urine Nitrate Urine Bilirubin Urine Urobilinogen Ur Leukocyte Esterase Urine WBC (Auto) Urine RBC (Auto) Ur Squamous Epith Cells Ur Random Creatinine U Random Total Protein 07/01/17 07/01/17 07/01/17 11:51 12:46 12:46 WBC RBC Hgb Hct MCV MCH MCHC RDW Plt Count MPV Neut % (Auto) Lymph % (Auto) [place] % (Auto) Eos % (Auto) Baso % (Auto) Neut # Lymph # [place] # Eos # Baso # Neutrophils % (Manual) Lymphocytes % (Manual) Monocytes % (Manual) Eosinophils % (Manual) Nucleated RBC % Platelet Estimate Polychromasia Hypochromasia (manual) Anisocytosis (manual) Microcytosis (manual) Target Cells Tear Drop Cells APTT Puncture Site pCO2 pO2 HCO3 ABG pH ABG Total CO2 ABG O2 Saturation ABG Base Excess ABG Hemoglobin ABG Carboxyhemoglobin POC ABG HHb (Measured) ABG Methemoglobin Jasvir Test A-a O2 Difference Respiratory Index Hgb O2 Saturation FiO2 Inspiratory BiPAP Expiratory BiPAP Sodium Potassium Chloride Carbon Dioxide Anion Gap BUN Creatinine Est GFR ( Amer) Est GFR (Non-Af Amer) POC Glucose (mg/dL) 190 H Random Glucose Calcium Phosphorus Magnesium Total Bilirubin AST ALT Alkaline Phosphatase Total Protein Albumin Globulin Albumin/Globulin Ratio Procalcitonin Urine Color Colorless Urine Clarity Clear Urine pH 5.0 Ur Specific [place] 1.009 Urine Protein Negative Urine Glucose (UA) 1+ Urine Ketones Negative Urine Blood 3+ H Urine Nitrate Negative Urine Bilirubin Negative Urine Urobilinogen Normal Ur Leukocyte Esterase Neg Urine WBC (Auto) 2 Urine RBC (Auto) 32 H Ur Squamous Epith Cells < 1 Ur Random Creatinine 11.2 U Random Total Protein Cancelled 07/01/17 12:46 WBC RBC Hgb Hct MCV MCH MCHC RDW Plt Count MPV Neut % (Auto) Lymph % (Auto) [place] % (Auto) Eos % (Auto) Baso % (Auto) Neut # Lymph # [place] # Eos # Baso # Neutrophils % (Manual) Lymphocytes % (Manual) Monocytes % (Manual) Eosinophils % (Manual) Nucleated RBC % Platelet Estimate Polychromasia Hypochromasia (manual) Anisocytosis (manual) Microcytosis (manual) Target Cells Tear Drop Cells APTT Puncture Site pCO2 pO2 HCO3 ABG pH ABG Total CO2 ABG O2 Saturation ABG Base Excess ABG Hemoglobin ABG Carboxyhemoglobin POC ABG HHb (Measured) ABG Methemoglobin Jasvir Test A-a O2 Difference Respiratory Index Hgb O2 Saturation FiO2 Inspiratory BiPAP Expiratory BiPAP Sodium Potassium Chloride Carbon Dioxide Anion Gap BUN Creatinine Est GFR ( Amer) Est GFR (Non-Af Amer) POC Glucose (mg/dL) Random Glucose Calcium Phosphorus Magnesium Total Bilirubin AST ALT Alkaline Phosphatase Total Protein Albumin Globulin Albumin/Globulin Ratio Procalcitonin Urine Color Urine Clarity Urine pH Ur Specific [place] Urine Protein Urine Glucose (UA) Urine Ketones Urine Blood Urine Nitrate Urine Bilirubin Urine Urobilinogen Ur Leukocyte Esterase Urine WBC (Auto) Urine RBC (Auto) Ur Squamous Epith Cells Ur Random Creatinine U Random Total Protein 23.0 H Fingerstick Blood Sugar Results: 198 <Dharmesh Trevino A - Last Filed: 07/01/17 15:51> CCU Subjective - Physician Review Events Since Last Encounter (Free Text): CCM Chart reviewed, pt examined/ discussed with housestaff awake, sl. agitated on BIPAP Neck-no jvd Lungs- bilat bs Heart-rr ABd- benign Ext- nontender Labs, [id number] A&P s/p Resp Failure CHF r/o PNA CKD A-fib Gatritis DM HTN CAD Arthritis cont meds diurese titrate BIPAP start Precedex for sedation OPtimize rate control maintain optimal lytes cont close resp observation case d/w family in detail at bedside 07/01/17 15:46 CCU Objective - Vital Signs / Intake & Output Vital Signs (Last 4 hours): Vital Signs Temp Pulse 07/01/17 13:40 87 07/01/17 12:00 98.1 F Intake and Output (Last 8hrs): Intake & Output 07/01/17 07/01/17 07/01/17 06:59 14:59 22:59 Intake Total 173.2 94.5 250 Output Total 664 1033 Balance -490.8 -938.5 250 Intake: IV 40 0 250 Intake, IV Amount 133.2 94.5 Right Antecubital 31.6 Right Distal Port Femoral 63.2 7.9 Right Forearm 45 Right Proximal Port 70 10 Femoral Output: Urine 664 1033 Urethral (Neff) 664 1033 - Medications Active Medications: Active Medications Generic Name Dose Route Start Last Admin Trade Name Freq PRN Reason Stop Dose Admin Famotidine 20 mg 06/26/17 10:00 07/01/17 09:43 Pepcid IVP 20 mg DAILY ASIM Administration Piperacillin Sod/Tazobactam Sod 2.25 gm in 50 mls @ 100 mls/hr 06/26/17 09:00 07/01/17 09:41 Zosyn 2.25 Gm Iv Premix IVPB 100 mls/hr Q8H ASIM Administration Azithromycin 500 mg/ Sodium 250 mls @ 250 mls/hr 06/26/17 10:00 07/01/17 09: 43 Chloride IVPB 250 mls/hr DAILY ASIM Administration Vancomycin/Sodium Chloride 1 gm in 200 mls @ 133.333 mls/hr 06/27/17 12:00 13:00 Vancocin IVPB Not Given Q24H ASIM Diltiazem HCl 125 mg/ Sodium 125 mls @ 5 mls/hr 06/30/17 03:00 07/01/17 11:00 Chloride IV 15 mg/hr .Q24H ASIM 15 mls/hr Protocol Titration 5 MG/HR Heparin Sodium/Sodium Chloride 25,000 units in 250 mls @ 7.947 mls/hr 08:36 07/01/17 15:03 Heparin 00698 Units/250ml 1/2 Normal Saline IV 12 units/kg/hr .Q24H PRN 7.947 mls/hr TITRATE PER PROTOCOL Administration Protocol 12 UNITS/KG/HR Dexmedetomidine HCl 200 mcg/ 50 mls @ 64.92 mls/hr 07/01/17 12:13 Sodium Chloride IV TITR PRN Agitation Protocol 4 MCG/KG/HR Insulin Human Regular 0 unit 06/27/17 13:02 07/01/17 12:00 Novolin R SC Not Given Q6 ASIM Protocol Metoclopramide HCl 5 mg 06/28/17 16:30 07/01/17 13:02 Reglan IVP Not Given ACHS ASIM Metoprolol Tartrate 50 mg 06/30/17 10:00 07/01/17 09:44 Lopressor PO Not Given BID ASIM Metoprolol Tartrate 5 mg 06/30/17 12:45 07/01/17 12:57 Lopressor IVP 5 mg Q6H ASIM Administration Midazolam HCl 1 mg 06/27/17 18:43 07/01/17 02:32 Versed Inj IVP 1 mg Q2H PRN Administration Agitation Ondansetron HCl 4 mg 06/29/17 14:17 Zofran Inj IVP Q6H PRN Nausea/Vomiting - Patient Studies Lab Studies: Lab Studies 07/01/17 07/01/17 07/01/17 Range/Units 12:46 12:46 12:46 WBC (4.8-10.8) K/uL RBC (3.80-5.20) Mil/uL Hgb (11.0-16.0) g/dL Hct (34.0-47.0) % MCV (81.0-99.0) fL MCH (27.0-31.0) pg MCHC (33.0-37.0) g/dL RDW (11.5-14.5) % Plt Count (130-400) K/uL MPV (7.2-11.7) fL Neut % (Auto) (50.0-75.0) % Lymph % (Auto) (20.0-40.0) % [place] % (Auto) (0.0-10.0) % Eos % (Auto) (0.0-4.0) % Baso % (Auto) (0.0-2.0) % Neut # (1.8-7.0) K/uL Lymph # (1.0-4.3) K/uL [place] # (0.0-0.8) K/uL Eos # (0.0-0.7) K/uL Baso # (0.0-0.2) K/uL Neutrophils % (Manual) (50-75) % Lymphocytes % (Manual) (20-40) % Monocytes % (Manual) (0-10) % Eosinophils % (Manual) (0-4) % Nucleated RBC % (0-0) % Platelet Estimate (NORMAL) Polychromasia Hypochromasia (manual) Anisocytosis (manual) Microcytosis (manual) Target Cells Tear Drop Cells APTT (21-34) SECONDS Puncture Site pCO2 (35-45) mm/Hg pO2 (80-100) mm/Hg HCO3 (21-28) mmol/L ABG pH (7.35-7.45) ABG Total CO2 (22-28) mmol/L ABG O2 Saturation (95-98) % ABG Base Excess (-2.0-3.0) mmol/L ABG Hemoglobin (11.7-17.4) g/dL ABG Carboxyhemoglobin (0.5-1.5) % POC ABG HHb (Measured) (0.0-5.0) % ABG Methemoglobin (0.0-3.0) % Jasvir Test A-a O2 Difference mm/Hg Respiratory Index Hgb O2 Saturation (95.0-98.0) % FiO2 % Inspiratory BiPAP Expiratory BiPAP Sodium (132-148) mmol/L Potassium (3.6-5.2) mmol/L Chloride (98-107) mmol/L Carbon Dioxide (22-30) mmol/L Anion Gap (10-20) BUN (7-17) mg/dL Creatinine (0.7-1.2) MG/DL Est GFR ( Amer) Est GFR (Non-Af Amer) POC Glucose (mg/dL) (65-110) mg/dL Random Glucose (65-105) mg/dL Calcium (8.6-10.4) mg/dl Phosphorus (2.5-4.5) mg/dL Magnesium (1.6-2.3) mg/dL Total Bilirubin (0.2-1.3) mg/dL AST (14-36) U/L ALT (9-52) U/L Alkaline Phosphatase (38-126) U/L Total Protein (6.3-8.3) g/dL Albumin (3.5-5.0) g/dL Globulin (2.2-3.9) gm/dL Albumin/Globulin Ratio (1.0-2.1) Procalcitonin (0.19-0.49) NG/ML Urine Color Colorless (YELLOW) Urine Clarity Clear (Clear) Urine pH 5.0 (5.0-8.0) Ur Specific [place] 1.009 (1.003-1.030) Urine Protein Negative (NEGATIVE) mg/dL Urine Glucose (UA) 1+ (Normal) mg/dL Urine Ketones Negative (NEGATIVE) mg/dL Urine Blood 3+ H (NEGATIVE) Urine Nitrate Negative (NEGATIVE) Urine Bilirubin Negative (NEGATIVE) Urine Urobilinogen Normal (0.2-1.0) mg/dL Ur Leukocyte Esterase Neg (Negative) Reed/uL Urine WBC (Auto) 2 (0-5) /hpf Urine RBC (Auto) 32 H (0-3) /hpf Ur Squamous Epith Cells < 1 (0-5) /hpf Ur Random Creatinine 11.2 mg/dL U Random Total Protein 23.0 H Cancelled 07/01/17 07/01/17 07/01/17 Range/Units 11:51 06:34 06:10 WBC (4.8-10.8) K/uL RBC (3.80-5.20) Mil/uL Hgb (11.0-16.0) g/dL Hct (34.0-47.0) % MCV (81.0-99.0) fL MCH (27.0-31.0) pg MCHC (33.0-37.0) g/dL RDW (11.5-14.5) % Plt Count (130-400) K/uL MPV (7.2-11.7) fL Neut % (Auto) (50.0-75.0) % Lymph % (Auto) (20.0-40.0) % [place] % (Auto) (0.0-10.0) % Eos % (Auto) (0.0-4.0) % Baso % (Auto) (0.0-2.0) % Neut # (1.8-7.0) K/uL Lymph # (1.0-4.3) K/uL [place] # (0.0-0.8) K/uL Eos # (0.0-0.7) K/uL Baso # (0.0-0.2) K/uL Neutrophils % (Manual) (50-75) % Lymphocytes % (Manual) (20-40) % Monocytes % (Manual) (0-10) % Eosinophils % (Manual) (0-4) % Nucleated RBC % (0-0) % Platelet Estimate (NORMAL) Polychromasia Hypochromasia (manual) Anisocytosis (manual) Microcytosis (manual) Target Cells Tear Drop Cells APTT (21-34) SECONDS Puncture Site pCO2 (35-45) mm/Hg pO2 (80-100) mm/Hg HCO3 (21-28) mmol/L ABG pH (7.35-7.45) ABG Total CO2 (22-28) mmol/L ABG O2 Saturation (95-98) % ABG Base Excess (-2.0-3.0) mmol/L ABG Hemoglobin (11.7-17.4) g/dL ABG Carboxyhemoglobin (0.5-1.5) % POC ABG HHb (Measured) (0.0-5.0) % ABG Methemoglobin (0.0-3.0) % Jasvir Test A-a O2 Difference mm/Hg Respiratory Index Hgb O2 Saturation (95.0-98.0) % FiO2 % Inspiratory BiPAP Expiratory BiPAP Sodium 147 (132-148) mmol/L Potassium 3.6 (3.6-5.2) mmol/L Chloride 112 H (98-107) mmol/L Carbon Dioxide 19 L (22-30) mmol/L Anion Gap 20 (10-20) BUN 51 H (7-17) mg/dL Creatinine 2.0 H (0.7-1.2) MG/DL Est GFR ( Amer) 29 Est GFR (Non-Af Amer) 24 POC Glucose (mg/dL) 190 H 198 H (65-110) mg/dL Random Glucose 192 H (65-105) mg/dL Calcium 8.6 (8.6-10.4) mg/dl Phosphorus 4.8 H (2.5-4.5) mg/dL Magnesium 1.6 (1.6-2.3) mg/dL Total Bilirubin 1.0 (0.2-1.3) mg/dL AST 43 H (14-36) U/L ALT 54 H (9-52) U/L Alkaline Phosphatase 83 (38-126) U/L Total Protein 6.3 (6.3-8.3) g/dL Albumin 3.3 L (3.5-5.0) g/dL Globulin 3.1 (2.2-3.9) gm/dL Albumin/Globulin Ratio 1.1 (1.0-2.1) Procalcitonin (0.19-0.49) NG/ML Urine Color (YELLOW) Urine Clarity (Clear) Urine pH (5.0-8.0) Ur Specific [place] (1.003-1.030) Urine Protein (NEGATIVE) mg/dL Urine Glucose (UA) (Normal) mg/dL Urine Ketones (NEGATIVE) mg/dL Urine Blood (NEGATIVE) Urine Nitrate (NEGATIVE) Urine Bilirubin (NEGATIVE) Urine Urobilinogen (0.2-1.0) mg/dL Ur Leukocyte Esterase (Negative) Reed/uL Urine WBC (Auto) (0-5) /hpf Urine RBC (Auto) (0-3) /hpf Ur Squamous Epith Cells (0-5) /hpf Ur Random Creatinine mg/dL U Random Total Protein 07/01/17 07/01/17 07/01/17 Range/Units 06:08 06:08 04:26 WBC 19.0 H (4.8-10.8) K/uL RBC 3.22 L (3.80-5.20) Mil/uL Hgb 8.5 L (11.0-16.0) g/dL Hct 27.2 L (34.0-47.0) % MCV 84.4 (81.0-99.0) fL MCH 26.3 L (27.0-31.0) pg MCHC 31.1 L (33.0-37.0) g/dL RDW 17.7 H (11.5-14.5) % Plt Count 175 (130-400) K/uL MPV 10.6 (7.2-11.7) fL Neut % (Auto) 85.0 H (50.0-75.0) % Lymph % (Auto) 7.9 L (20.0-40.0) % [place] % (Auto) 5.6 (0.0-10.0) % Eos % (Auto) 1.0 (0.0-4.0) % Baso % (Auto) 0.5 (0.0-2.0) % Neut # 16.2 H (1.8-7.0) K/uL Lymph # 1.5 (1.0-4.3) K/uL [place] # 1.1 H (0.0-0.8) K/uL Eos # 0.2 (0.0-0.7) K/uL Baso # 0.1 (0.0-0.2) K/uL Neutrophils % (Manual) 85 H (50-75) % Lymphocytes % (Manual) 11 L (20-40) % Monocytes % (Manual) 3 (0-10) % Eosinophils % (Manual) 1 (0-4) % Nucleated RBC % 2 H (0-0) % Platelet Estimate Normal (NORMAL) Polychromasia Slight Hypochromasia (manual) Slight Anisocytosis (manual) Slight Microcytosis (manual) Slight Target Cells Slight Tear Drop Cells Slight APTT 54 H (21-34) SECONDS Puncture Site R rad pCO2 42 (35-45) mm/Hg pO2 48 L (80-100) mm/Hg HCO3 19.5 L (21-28) mmol/L ABG pH 7.28 L (7.35-7.45) ABG Total CO2 21.0 L (22-28) mmol/L ABG O2 Saturation 87.0 L (95-98) % ABG Base Excess -6.6 L (-2.0-3.0) mmol/L ABG Hemoglobin 9.5 L (11.7-17.4) g/dL ABG Carboxyhemoglobin 2.4 H (0.5-1.5) % POC ABG HHb (Measured) 12.5 H (0.0-5.0) % ABG Methemoglobin 1.2 (0.0-3.0) % Jasvir Test Pos A-a O2 Difference 256.0 mm/Hg Respiratory Index 5.3 Hgb O2 Saturation 84.0 L (95.0-98.0) % FiO2 50.0 % Inspiratory BiPAP 10 Expiratory BiPAP 5 Sodium (132-148) mmol/L Potassium (3.6-5.2) mmol/L Chloride (98-107) mmol/L Carbon Dioxide (22-30) mmol/L Anion Gap (10-20) BUN (7-17) mg/dL Creatinine (0.7-1.2) MG/DL Est GFR ( Amer) Est GFR (Non-Af Amer) POC Glucose (mg/dL) (65-110) mg/dL Random Glucose (65-105) mg/dL Calcium (8.6-10.4) mg/dl Phosphorus (2.5-4.5) mg/dL Magnesium (1.6-2.3) mg/dL Total Bilirubin (0.2-1.3) mg/dL AST (14-36) U/L ALT (9-52) U/L Alkaline Phosphatase (38-126) U/L Total Protein (6.3-8.3) g/dL Albumin (3.5-5.0) g/dL Globulin (2.2-3.9) gm/dL Albumin/Globulin Ratio (1.0-2.1) Procalcitonin (0.19-0.49) NG/ML Urine Color (YELLOW) Urine Clarity (Clear) Urine pH (5.0-8.0) Ur Specific [place] (1.003-1.030) Urine Protein (NEGATIVE) mg/dL Urine Glucose (UA) (Normal) mg/dL Urine Ketones (NEGATIVE) mg/dL Urine Blood (NEGATIVE) Urine Nitrate (NEGATIVE) Urine Bilirubin (NEGATIVE) Urine Urobilinogen (0.2-1.0) mg/dL Ur Leukocyte Esterase (Negative) Reed/uL Urine WBC (Auto) (0-5) /hpf Urine RBC (Auto) (0-3) /hpf Ur Squamous Epith Cells (0-5) /hpf Ur Random Creatinine mg/dL U Random Total Protein 06/30/17 06/30/17 06/30/17 Range/Units 23:49 21:40 17:51 WBC (4.8-10.8) K/uL RBC (3.80-5.20) Mil/uL Hgb (11.0-16.0) g/dL Hct (34.0-47.0) % MCV (81.0-99.0) fL MCH (27.0-31.0) pg MCHC (33.0-37.0) g/dL RDW (11.5-14.5) % Plt Count (130-400) K/uL MPV (7.2-11.7) fL Neut % (Auto) (50.0-75.0) % Lymph % (Auto) (20.0-40.0) % [place] % (Auto) (0.0-10.0) % Eos % (Auto) (0.0-4.0) % Baso % (Auto) (0.0-2.0) % Neut # (1.8-7.0) K/uL Lymph # (1.0-4.3) K/uL [place] # (0.0-0.8) K/uL Eos # (0.0-0.7) K/uL Baso # (0.0-0.2) K/uL Neutrophils % (Manual) (50-75) % Lymphocytes % (Manual) (20-40) % Monocytes % (Manual) (0-10) % Eosinophils % (Manual) (0-4) % Nucleated RBC % (0-0) % Platelet Estimate (NORMAL) Polychromasia Hypochromasia (manual) Anisocytosis (manual) Microcytosis (manual) Target Cells Tear Drop Cells APTT 53 H D (21-34) SECONDS Puncture Site pCO2 (35-45) mm/Hg pO2 (80-100) mm/Hg HCO3 (21-28) mmol/L ABG pH (7.35-7.45) ABG Total CO2 (22-28) mmol/L ABG O2 Saturation (95-98) % ABG Base Excess (-2.0-3.0) mmol/L ABG Hemoglobin (11.7-17.4) g/dL ABG Carboxyhemoglobin (0.5-1.5) % POC ABG HHb (Measured) (0.0-5.0) % ABG Methemoglobin (0.0-3.0) % Jasvir Test A-a O2 Difference mm/Hg Respiratory Index Hgb O2 Saturation (95.0-98.0) % FiO2 % Inspiratory BiPAP Expiratory BiPAP Sodium (132-148) mmol/L Potassium (3.6-5.2) mmol/L Chloride (98-107) mmol/L Carbon Dioxide (22-30) mmol/L Anion Gap (10-20) BUN (7-17) mg/dL Creatinine (0.7-1.2) MG/DL Est GFR ( Amer) Est GFR (Non-Af Amer) POC Glucose (mg/dL) 202 H 170 H (65-110) mg/dL Random Glucose (65-105) mg/dL Calcium (8.6-10.4) mg/dl Phosphorus (2.5-4.5) mg/dL Magnesium (1.6-2.3) mg/dL Total Bilirubin (0.2-1.3) mg/dL AST (14-36) U/L ALT (9-52) U/L Alkaline Phosphatase (38-126) U/L Total Protein (6.3-8.3) g/dL Albumin (3.5-5.0) g/dL Globulin (2.2-3.9) gm/dL Albumin/Globulin Ratio (1.0-2.1) Procalcitonin (0.19-0.49) NG/ML Urine Color (YELLOW) Urine Clarity (Clear) Urine pH (5.0-8.0) Ur Specific [place] (1.003-1.030) Urine Protein (NEGATIVE) mg/dL Urine Glucose (UA) (Normal) mg/dL Urine Ketones (NEGATIVE) mg/dL Urine Blood (NEGATIVE) Urine Nitrate (NEGATIVE) Urine Bilirubin (NEGATIVE) Urine Urobilinogen (0.2-1.0) mg/dL Ur Leukocyte Esterase (Negative) Reed/uL Urine WBC (Auto) (0-5) /hpf Urine RBC (Auto) (0-3) /hpf Ur Squamous Epith Cells (0-5) /hpf Ur Random Creatinine mg/dL U Random Total Protein 06/30/17 Range/Units 12:10 WBC (4.8-10.8) K/uL RBC (3.80-5.20) Mil/uL Hgb (11.0-16.0) g/dL Hct (34.0-47.0) % MCV (81.0-99.0) fL MCH (27.0-31.0) pg MCHC (33.0-37.0) g/dL RDW (11.5-14.5) % Plt Count (130-400) K/uL MPV (7.2-11.7) fL Neut % (Auto) (50.0-75.0) % Lymph % (Auto) (20.0-40.0) % [place] % (Auto) (0.0-10.0) % Eos % (Auto) (0.0-4.0) % Baso % (Auto) (0.0-2.0) % Neut # (1.8-7.0) K/uL Lymph # (1.0-4.3) K/uL [place] # (0.0-0.8) K/uL Eos # (0.0-0.7) K/uL Baso # (0.0-0.2) K/uL Neutrophils % (Manual) (50-75) % Lymphocytes % (Manual) (20-40) % Monocytes % (Manual) (0-10) % Eosinophils % (Manual) (0-4) % Nucleated RBC % (0-0) % Platelet Estimate (NORMAL) Polychromasia Hypochromasia (manual) Anisocytosis (manual) Microcytosis (manual) Target Cells Tear Drop Cells APTT (21-34) SECONDS Puncture Site pCO2 (35-45) mm/Hg pO2 (80-100) mm/Hg HCO3 (21-28) mmol/L ABG pH (7.35-7.45) ABG Total CO2 (22-28) mmol/L ABG O2 Saturation (95-98) % ABG Base Excess (-2.0-3.0) mmol/L ABG Hemoglobin (11.7-17.4) g/dL ABG Carboxyhemoglobin (0.5-1.5) % POC ABG HHb (Measured) (0.0-5.0) % ABG Methemoglobin (0.0-3.0) % Jasvir Test A-a O2 Difference mm/Hg Respiratory Index Hgb O2 Saturation (95.0-98.0) % FiO2 % Inspiratory BiPAP Expiratory BiPAP Sodium (132-148) mmol/L Potassium (3.6-5.2) mmol/L Chloride (98-107) mmol/L Carbon Dioxide (22-30) mmol/L Anion Gap (10-20) BUN (7-17) mg/dL Creatinine (0.7-1.2) MG/DL Est GFR ( Amer) Est GFR (Non-Af Amer) POC Glucose (mg/dL) (65-110) mg/dL Random Glucose (65-105) mg/dL Calcium (8.6-10.4) mg/dl Phosphorus (2.5-4.5) mg/dL Magnesium (1.6-2.3) mg/dL Total Bilirubin (0.2-1.3) mg/dL AST (14-36) U/L ALT (9-52) U/L Alkaline Phosphatase (38-126) U/L Total Protein (6.3-8.3) g/dL Albumin (3.5-5.0) g/dL Globulin (2.2-3.9) gm/dL Albumin/Globulin Ratio (1.0-2.1) Procalcitonin 0.40 (0.19-0.49) NG/ML Urine Color (YELLOW) Urine Clarity (Clear) Urine pH (5.0-8.0) Ur Specific [place] (1.003-1.030) Urine Protein (NEGATIVE) mg/dL Urine Glucose (UA) (Normal) mg/dL Urine Ketones (NEGATIVE) mg/dL Urine Blood (NEGATIVE) Urine Nitrate (NEGATIVE) Urine Bilirubin (NEGATIVE) Urine Urobilinogen (0.2-1.0) mg/dL Ur Leukocyte Esterase (Negative) Reed/uL Urine WBC (Auto) (0-5) /hpf Urine RBC (Auto) (0-3) /hpf Ur Squamous Epith Cells (0-5) /hpf Ur Random Creatinine mg/dL U Random Total Protein Laboratory Results - last 24 hr 06/30/17 06/30/17 06/30/17 12:10 17:51 21:40 WBC RBC Hgb Hct MCV MCH MCHC RDW Plt Count MPV Neut % (Auto) Lymph % (Auto) [place] % (Auto) Eos % (Auto) Baso % (Auto) Neut # Lymph # [place] # Eos # Baso # Neutrophils % (Manual) Lymphocytes % (Manual) Monocytes % (Manual) Eosinophils % (Manual) Nucleated RBC % Platelet Estimate Polychromasia Hypochromasia (manual) Anisocytosis (manual) Microcytosis (manual) Target Cells Tear Drop Cells APTT 53 H D Puncture Site pCO2 pO2 HCO3 ABG pH ABG Total CO2 ABG O2 Saturation ABG Base Excess ABG Hemoglobin ABG Carboxyhemoglobin POC ABG HHb (Measured) ABG Methemoglobin Jasvir Test A-a O2 Difference Respiratory Index Hgb O2 Saturation FiO2 Inspiratory BiPAP Expiratory BiPAP Sodium Potassium Chloride Carbon Dioxide Anion Gap BUN Creatinine Est GFR ( Amer) Est GFR (Non-Af Amer) POC Glucose (mg/dL) 170 H Random Glucose Calcium Phosphorus Magnesium Total Bilirubin AST ALT Alkaline Phosphatase Total Protein Albumin Globulin Albumin/Globulin Ratio Procalcitonin 0.40 Urine Color Urine Clarity Urine pH Ur Specific [place] Urine Protein Urine Glucose (UA) Urine Ketones Urine Blood Urine Nitrate Urine Bilirubin Urine Urobilinogen Ur Leukocyte Esterase Urine WBC (Auto) Urine RBC (Auto) Ur Squamous Epith Cells Ur Random Creatinine U Random Total Protein 06/30/17 07/01/17 07/01/17 23:49 04:26 06:08 WBC RBC Hgb Hct MCV MCH MCHC RDW Plt Count MPV Neut % (Auto) Lymph % (Auto) [place] % (Auto) Eos % (Auto) Baso % (Auto) Neut # Lymph # [place] # Eos # Baso # Neutrophils % (Manual) Lymphocytes % (Manual) Monocytes % (Manual) Eosinophils % (Manual) Nucleated RBC % Platelet Estimate Polychromasia Hypochromasia (manual) Anisocytosis (manual) Microcytosis (manual) Target Cells Tear Drop Cells APTT 54 H Puncture Site R rad pCO2 42 pO2 48 L HCO3 19.5 L ABG pH 7.28 L ABG Total CO2 21.0 L ABG O2 Saturation 87.0 L ABG Base Excess -6.6 L ABG Hemoglobin 9.5 L ABG Carboxyhemoglobin 2.4 H POC ABG HHb (Measured) 12.5 H ABG Methemoglobin 1.2 Jasvir Test Pos A-a O2 Difference 256.0 Respiratory Index 5.3 Hgb O2 Saturation 84.0 L FiO2 50.0 Inspiratory BiPAP 10 Expiratory BiPAP 5 Sodium Potassium Chloride Carbon Dioxide Anion Gap BUN Creatinine Est GFR ( Amer) Est GFR (Non-Af Amer) POC Glucose (mg/dL) 202 H Random Glucose Calcium Phosphorus Magnesium Total Bilirubin AST ALT Alkaline Phosphatase Total Protein Albumin Globulin Albumin/Globulin Ratio Procalcitonin Urine Color Urine Clarity Urine pH Ur Specific [place] Urine Protein Urine Glucose (UA) Urine Ketones Urine Blood Urine Nitrate Urine Bilirubin Urine Urobilinogen Ur Leukocyte Esterase Urine WBC (Auto) Urine RBC (Auto) Ur Squamous Epith Cells Ur Random Creatinine U Random Total Protein 07/01/17 07/01/17 07/01/17 06:08 06:10 06:34 WBC 19.0 H RBC 3.22 L Hgb 8.5 L Hct 27.2 L MCV 84.4 MCH 26.3 L MCHC 31.1 L RDW 17.7 H Plt Count 175 MPV 10.6 Neut % (Auto) 85.0 H Lymph % (Auto) 7.9 L [place] % (Auto) 5.6 Eos % (Auto) 1.0 Baso % (Auto) 0.5 Neut # 16.2 H Lymph # 1.5 [place]pton # 1.1 H Eos # 0.2 Baso # 0.1 Neutrophils % (Manual) 85 H Lymphocytes % (Manual) 11 L Monocytes % (Manual) 3 Eosinophils % (Manual) 1 Nucleated RBC % 2 H Platelet Estimate Normal Polychromasia Slight Hypochromasia (manual) Slight Anisocytosis (manual) Slight Microcytosis (manual) Slight Target Cells Slight Tear Drop Cells Slight APTT Puncture Site pCO2 pO2 HCO3 ABG pH ABG Total CO2 ABG O2 Saturation ABG Base Excess ABG Hemoglobin ABG Carboxyhemoglobin POC ABG HHb (Measured) ABG Methemoglobin Jasvir Test A-a O2 Difference Respiratory Index Hgb O2 Saturation FiO2 Inspiratory BiPAP Expiratory BiPAP Sodium 147 Potassium 3.6 Chloride 112 H Carbon Dioxide 19 L Anion Gap 20 BUN 51 H Creatinine 2.0 H Est GFR ( Amer) 29 Est GFR (Non-Af Amer) 24 POC Glucose (mg/dL) 198 H Random Glucose 192 H Calcium 8.6 Phosphorus 4.8 H Magnesium 1.6 Total Bilirubin 1.0 AST 43 H ALT 54 H Alkaline Phosphatase 83 Total Protein 6.3 Albumin 3.3 L Globulin 3.1 Albumin/Globulin Ratio 1.1 Procalcitonin Urine Color Urine Clarity Urine pH Ur Specific [place] Urine Protein Urine Glucose (UA) Urine Ketones Urine Blood Urine Nitrate Urine Bilirubin Urine Urobilinogen Ur Leukocyte Esterase Urine WBC (Auto) Urine RBC (Auto) Ur Squamous Epith Cells Ur Random Creatinine U Random Total Protein 07/01/17 07/01/17 07/01/17 11:51 12:46 12:46 WBC RBC Hgb Hct MCV MCH MCHC RDW Plt Count MPV Neut % (Auto) Lymph % (Auto) [place] % (Auto) Eos % (Auto) Baso % (Auto) Neut # Lymph # [place] # Eos # Baso # Neutrophils % (Manual) Lymphocytes % (Manual) Monocytes % (Manual) Eosinophils % (Manual) Nucleated RBC % Platelet Estimate Polychromasia Hypochromasia (manual) Anisocytosis (manual) Microcytosis (manual) Target Cells Tear Drop Cells APTT Puncture Site pCO2 pO2 HCO3 ABG pH ABG Total CO2 ABG O2 Saturation ABG Base Excess ABG Hemoglobin ABG Carboxyhemoglobin POC ABG HHb (Measured) ABG Methemoglobin Jasvir Test A-a O2 Difference Respiratory Index Hgb O2 Saturation FiO2 Inspiratory BiPAP Expiratory BiPAP Sodium Potassium Chloride Carbon Dioxide Anion Gap BUN Creatinine Est GFR ( Amer) Est GFR (Non-Af Amer) POC Glucose (mg/dL) 190 H Random Glucose Calcium Phosphorus Magnesium Total Bilirubin AST ALT Alkaline Phosphatase Total Protein Albumin Globulin Albumin/Globulin Ratio Procalcitonin Urine Color Colorless Urine Clarity Clear Urine pH 5.0 Ur Specific [place] 1.009 Urine Protein Negative Urine Glucose (UA) 1+ Urine Ketones Negative Urine Blood 3+ H Urine Nitrate Negative Urine Bilirubin Negative Urine Urobilinogen Normal Ur Leukocyte Esterase Neg Urine WBC (Auto) 2 Urine RBC (Auto) 32 H Ur Squamous Epith Cells < 1 Ur Random Creatinine 11.2 U Random Total Protein Cancelled 07/01/17 12:46 WBC RBC Hgb Hct MCV MCH MCHC RDW Plt Count MPV Neut % (Auto) Lymph % (Auto) [place] % (Auto) Eos % (Auto) Baso % (Auto) Neut # Lymph # [place] # Eos # Baso # Neutrophils % (Manual) Lymphocytes % (Manual) Monocytes % (Manual) Eosinophils % (Manual) Nucleated RBC % Platelet Estimate Polychromasia Hypochromasia (manual) Anisocytosis (manual) Microcytosis (manual) Target Cells Tear Drop Cells APTT Puncture Site pCO2 pO2 HCO3 ABG pH ABG Total CO2 ABG O2 Saturation ABG Base Excess ABG Hemoglobin ABG Carboxyhemoglobin POC ABG HHb (Measured) ABG Methemoglobin Jasvir Test A-a O2 Difference Respiratory Index Hgb O2 Saturation FiO2 Inspiratory BiPAP Expiratory BiPAP Sodium Potassium Chloride Carbon Dioxide Anion Gap BUN Creatinine Est GFR ( Amer) Est GFR (Non-Af Amer) POC Glucose (mg/dL) Random Glucose Calcium Phosphorus Magnesium Total Bilirubin AST ALT Alkaline Phosphatase Total Protein Albumin Globulin Albumin/Globulin Ratio Procalcitonin Urine Color Urine Clarity Urine pH Ur Specific [place] Urine Protein Urine Glucose (UA) Urine Ketones Urine Blood Urine Nitrate Urine Bilirubin Urine Urobilinogen Ur Leukocyte Esterase Urine WBC (Auto) Urine RBC (Auto) Ur Squamous Epith Cells Ur Random Creatinine U Random Total Protein 23.0 H
[2017-07-02] MEDS: Midazolam 2 MG/2 ML VIAL IVP PRN ×2 (01:50→04:30)
[2017-07-02] MEDS: Metoprolol 1 mg/ml Inj IVP SCH ×4 (02:00→18:26)
[2017-07-02 05:40] LABS: ABG ALLEN TEST POS; ARTERIAL BLOOD GAS MODE BiPAP; CARBOXYHEMOGLOBIN 3.2 % (0.5-1.5); DRAW SITE RR; HHB 2.7 % (0.0-5.0)
[2017-07-02] MEDS: (Novolin R) Insulin Human Regular 100 units/ml vial SC SCH ×4 (05:51→18:00)
[2017-07-02 06:44] LABS: POTASSIUM 3.3 mmol/L (3.6-5.2)
[2017-07-02 06:46] LABS: BILIRUBIN,TOTAL 1.1 mg/dL (0.2-1.3)
[2017-07-02 06:47] LABS: CALCIUM 8.2 mg/dl (8.6-10.4); MAGNESIUM 1.5 mg/dL (1.6-2.3); PHOSPHOROUS 3.5 mg/dL (2.5-4.5)
[2017-07-02 07:30] LABS: INR 1.3
--- NOTE | 2017-07-02 09:32 | CP.PCM.PN ---
Subjective - Date & Time of Evaluation Date of Evaluation: 07/02/17 Time of Evaluation: 09:30 - Subjective Subjective: output over 3 liters over 2 liter negative water balance sodium elevated chest xray probably improved agitated in bed mittens on hands ROS no interpretator unable to obtain Objective - Vital Signs/Intake and Output Vital Signs (last 24 hours): Temp Pulse Resp BP Pulse Ox 97.7 F 85 26 H 156/88 H 97 07/02/17 08:00 07/02/17 08:38 07/02/17 08:38 07/02/17 08:38 07/02/17 08:38 Intake and Output: 07/02/17 07/02/17 06:59 18:59 Intake Total 449.8 45.8 Output Total 1200 200 Balance -750.2 -154.2 - Medications Medications: Current Medications Famotidine (Pepcid) 20 mg IVP DAILY [facility] Last Admin: 07/01/17 09:43 Dose: 20 mg Piperacillin Sod/Tazobactam Sod (Zosyn 2.25 Gm Iv Premix) 2.25 gm in 50 mls @ 100 mls/hr IVPB Q8H [facility] Last Admin: 07/02/17 00:00 Dose: 100 mls/hr Azithromycin 500 mg/ Sodium (Chloride) 250 mls @ 250 mls/hr IVPB DAILY [facility] Last Admin: 07/01/17 09:43 Dose: 250 mls/hr Vancomycin/Sodium Chloride (Vancocin) 1 gm in 200 mls @ 133.333 mls/hr IVPB Q24H [facility] Last Admin: 06/28/17 13:00 Dose: Not Given Diltiazem HCl 125 mg/ Sodium (Chloride) 125 mls @ 5 mls/hr IV .Q24H ASIM; 5 MG/ HR PRN Reason: Protocol Last Admin: 07/02/17 01:30 Dose: 15 mg/hr, 15 mls/hr Heparin Sodium/Sodium Chloride (Heparin 47037 Units/250ml 1/2 Normal Saline) 25 ,000 units in 250 mls @ 7.947 mls/hr IV .Q24H PRN; Protocol; 12 UNITS/KG/HR PRN Reason: TITRATE PER PROTOCOL Last Admin: 07/01/17 15:03 Dose: 12 units/kg/hr, 7.947 mls/hr Dexmedetomidine HCl 200 mcg/ (Sodium Chloride) 50 mls @ 64.92 mls/hr IV TITR PRN; Protocol; 4 MCG/KG/HR PRN Reason: Agitation Insulin Human Regular (Novolin R) 0 unit SC Q6 ASIM PRN Reason: Protocol Last Admin: 07/02/17 05:51 Dose: Not Given Metoclopramide HCl (Reglan) 5 mg IVP ACHS [facility] Last Admin: 07/02/17 08:46 Dose: 5 mg Metoprolol Tartrate (Lopressor) 50 mg PO BID [facility] Last Admin: 07/01/17 17:26 Dose: Not Given Metoprolol Tartrate (Lopressor) 5 mg IVP Q6H [facility] Last Admin: 07/02/17 05:53 Dose: 5 mg Midazolam HCl (Versed Inj) 1 mg IVP Q2H PRN PRN Reason: Agitation Last Admin: 07/02/17 04:30 Dose: 1 mg Ondansetron HCl (Zofran Inj) 4 mg IVP Q6H PRN PRN Reason: Nausea/Vomiting - Labs Labs: 07/01/17 06:08 07/02/17 06:20 PT 14.1 SECONDS (9.7-12.2) H 07/02/17 07:13 INR 1.3 07/02/17 07:13 APTT 46 SECONDS (21-34) H D 07/02/17 07:13 - Constitutional Appears: Agitated, Other - Head Exam Additional comments: on face mask - Respiratory Exam Respiratory Exam: Clear to Ausculation Bilateral - Cardiovascular Exam Cardiovascular Exam: Irregular Rhythm - GI/Abdominal Exam GI & Abdominal Exam: Soft. absent: Distended, Tenderness - Exam Additional comments: miller in place - Back Exam Additional comments: no leg edema - Psychiatric Exam Psychiatric exam: Agitated Assessment and Plan (1) Acute renal failure Status: Acute (2) CKD (chronic kidney disease) Status: Acute (3) Pulmonary edema Status: Acute - Assessment and Plan (Free Text) Plan: consider reducing diuretics follow chems closely
[2017-07-02] MEDS ORDERED: Magnesium Sulfate 1 gm in D5W 1 GM/100 ML BAG IVPB ONE (09:50)
[2017-07-02] MEDS: Piperacill/Tazo 2.25gm in Dex 2.25 GM/50 ML BAG IVPB SCH ×3 (10:55→16:27)
[2017-07-02] MEDS: Azithromycin 500 MG in Sodium Chloride 0.9% 250 ML IVPB SCH (10:56)
--- NOTE | 2017-07-02 12:43 | RAD ---
HISTORY: dyspnea COMPARISON: Portable chest 06/30/2017 FINDINGS: LUNGS: Inspiratory volume is stable. Heterogeneous density at the bilateral perihilar regions has increased bilaterally into a pattern suspicious for active CHF. The pattern suggests interval worsening. Underlying infiltrate is not excluded in the medial chest bilaterally. PLEURA: Trace interval left pleural effusion not excluded. None is seen the right. No pneumothorax bilaterally. CARDIOVASCULAR: Cardiac silhouette is somewhat obscured drive medial pulmonary density bilaterally. No significant interval change in cardiac size felt to be present nevertheless grossly. OSSEOUS STRUCTURES: No significant abnormalities. VISUALIZED UPPER ABDOMEN: Normal. OTHER FINDINGS: None. IMPRESSION: Findings most likely suggest interval worsening of CHF. Underlying pneumonia is not excluded bilaterally. Continued clinical and radiographic monitoring are advised.
--- NOTE | 2017-07-02 13:54 | CP.PCM.PN ---
Subjective - Date & Time of Evaluation Date of Evaluation: 07/02/17 Time of Evaluation: 13:52 - Subjective Subjective: CLINICALLY REMAINS SAME CR. HAS IMPROVED TO 1.7 STILL RISKY CATH DUE TO TOXICITY OF DYE OFF DIURETICS MAY NEED LTAC ON BIPAP Objective - Vital Signs/Intake and Output Vital Signs (last 24 hours): Temp Pulse Resp BP Pulse Ox 98.3 F 98 H 16 163/85 H 97 07/02/17 12:00 07/02/17 13:48 07/02/17 13:00 07/02/17 12:36 07/02/17 13:00 Intake and Output: 07/02/17 07/02/17 11:59 23:59 Intake Total 811.8 228.8 Output Total 1350 325 Balance -538.2 -96.2 - Medications Medications: Current Medications Famotidine (Pepcid) 20 mg IVP DAILY [facility] Last Admin: 07/02/17 10:56 Dose: 20 mg Piperacillin Sod/Tazobactam Sod (Zosyn 2.25 Gm Iv Premix) 2.25 gm in 50 mls @ 100 mls/hr IVPB Q8H [facility] Last Admin: 07/02/17 10:55 Dose: 100 mls/hr Azithromycin 500 mg/ Sodium (Chloride) 250 mls @ 250 mls/hr IVPB DAILY [facility] Last Admin: 07/02/17 10:56 Dose: 250 mls/hr Vancomycin/Sodium Chloride (Vancocin) 1 gm in 200 mls @ 133.333 mls/hr IVPB Q24H [facility] Last Admin: 06/28/17 13:00 Dose: Not Given Diltiazem HCl 125 mg/ Sodium (Chloride) 125 mls @ 5 mls/hr IV .Q24H [facility]; 5 MG/ HR PRN Reason: Protocol Last Admin: 07/02/17 13:00 Dose: 10 mg/hr, 10 mls/hr Heparin Sodium/Sodium Chloride (Heparin 84691 Units/250ml 1/2 Normal Saline) 25 ,000 units in 250 mls @ 7.947 mls/hr IV .Q24H PRN; Protocol; 12 UNITS/KG/HR PRN Reason: TITRATE PER PROTOCOL Last Admin: 07/01/17 15:03 Dose: 12 units/kg/hr, 7.947 mls/hr Insulin Human Regular (Novolin R) 0 unit SC Q6 [facility] PRN Reason: Protocol Last Admin: 07/02/17 12:42 Dose: Not Given Metoclopramide HCl (Reglan) 5 mg IVP ACHS [facility] Last Admin: 07/02/17 12:40 Dose: 5 mg Metoprolol Tartrate (Lopressor) 50 mg PO BID [facility] Last Admin: 07/02/17 10:00 Dose: Not Given Metoprolol Tartrate (Lopressor) 5 mg IVP Q6H [facility] Last Admin: 07/02/17 12:40 Dose: 5 mg - Labs Labs: 07/01/17 06:08 07/02/17 06:20 PT 14.1 SECONDS (9.7-12.2) H 07/02/17 07:13 INR 1.3 07/02/17 07:13 APTT 46 SECONDS (21-34) H D 07/02/17 07:13
--- NOTE | 2017-07-02 17:57 | CP.CCUPN ---
CCU Subjective - Physician Review Events Since Last Encounter (Free Text): 07/02/17 17:57 Patient is a 77-year-old female with history of hypertension diabetes CAD admitted with the atrial fibrillation, complicated with the congestive heart failure, renal insufficiency. Patient was initially intubated, extubated. But the for the last 3 days patient is on BiPAP. Not improving. Patient is agitated. Not eating well. Cough minimally noted, dry mouth noted. Patient is needing high FiO2 On examination: Vital signs are stable, but the episode a week tachycardia noted, on Cardizem drip. Chest good air entry, expiratory rales and wheezing noted no abdominal tenderness noted, edema negative Chest x-ray diffuse bilateral pulmonary infiltrate changes I spoke to the patient's granddaughter both of them today. I explained to them that the patient may need a reintubation, but will attempted to continue the BiPAP and Lasix. Assessment and recommendation: 77-year-old female with a history of hypertension diabetes atrial fibrillation with the congestive heart failure. Now possibly ARDS, are aspiration pneumonia likely. Patient is at high risk for reintubation. We'll continue the current BiPAP. Some improvement with the Lasix noted. We'll continue to monitor and will follow the patient CCU Objective - Vital Signs / Intake & Output Vital Signs (Last 4 hours): Vital Signs Temp Pulse Resp BP Pulse Ox 07/02/17 16:50 78 30 H 155/51 H 100 07/02/17 16:07 108 H 07/02/17 16:00 98 F 07/02/17 15:37 88 23 146/49 L 100 07/02/17 14:37 112 H 22 164/62 H 07/02/17 14:00 86 21 100 Intake and Output (Last 8hrs): Intake & Output 07/02/17 07/02/17 07/02/17 06:59 14:59 22:59 Intake Total 358.2 773.2 103.7 Output Total 800 975 Balance -441.8 -201.8 103.7 Intake: IV 125 125 Intake, IV Amount 233.2 648.2 103.7 Left Antecubital 50 Right Antecubital 63.2 63.2 23.7 Right Forearm 120 85 30 Right Hand 500 50 Output: Urine 800 975 Urethral (Neff) 800 975 - Physical Exam Head: Positive for: Atraumatic, Normocephalic Extroacular Muscles: Positive for: EOMI Mouth: Positive for: Moist Mucous Membranes Respiratory/Chest: Positive for: Clear to Auscultation. Negative for: Wheezes, Rales, Rhonchi Cardiovascular: Positive for: Normal S1, S2, Irregular Rhythm, Tachycardic. Negative for: Bradycardic Abdomen: Positive for: Distention, Normal Bowel Sounds. Negative for: Tenderness Upper Extremity: Positive for: Normal Inspection. Negative for: Edema Lower Extremity: Positive for: Normal Inspection. Negative for: Edema Skin: Positive for: Warm, Dry, Normal Color Psychiatric: Positive for: Alert, Lethargic - Medications Active Medications: Active Medications Generic Name Dose Route Start Last Admin Trade Name Freq PRN Reason Stop Dose Admin Famotidine 20 mg 06/26/17 10:00 07/02/17 10:56 Pepcid IVP 20 mg DAILY [facility] Administration Piperacillin Sod/Tazobactam Sod 2.25 gm in 50 mls @ 100 mls/hr 06/26/17 09:00 07/02/17 16:27 Zosyn 2.25 Gm Iv Premix IVPB 100 mls/hr Q8H [facility] Administration Azithromycin 500 mg/ Sodium 250 mls @ 250 mls/hr 06/26/17 10:00 07/02/17 10: 56 Chloride IVPB 250 mls/hr DAILY [facility] Administration Vancomycin/Sodium Chloride 1 gm in 200 mls @ 133.333 mls/hr 06/27/17 12:00 13:00 Vancocin IVPB Not Given Q24H [facility] Diltiazem HCl 125 mg/ Sodium 125 mls @ 5 mls/hr 06/30/17 03:00 07/02/17 13:00 Chloride IV 10 mg/hr .Q24H [facility] 10 mls/hr Protocol Administration 5 MG/HR Heparin Sodium/Sodium Chloride 25,000 units in 250 mls @ 7.947 mls/hr 08:36 07/01/17 15:03 Heparin 35591 Units/250ml 1/2 Normal Saline IV 12 units/kg/hr .Q24H PRN 7.947 mls/hr TITRATE PER PROTOCOL Administration Protocol 12 UNITS/KG/HR Insulin Human Regular 0 unit 06/27/17 13:02 07/02/17 12:42 Novolin R SC Not Given Q6 [facility] Protocol Metoclopramide HCl 5 mg 06/28/17 16:30 07/02/17 16:14 Reglan IVP 5 mg ACHS [facility] Administration Metoprolol Tartrate 50 mg 06/30/17 10:00 07/02/17 10:00 Lopressor PO Not Given BID [facility] Metoprolol Tartrate 5 mg 06/30/17 12:45 07/02/17 12:40 Lopressor IVP 5 mg Q6H [facility] Administration - Patient Studies Lab Studies: Lab Studies 07/02/17 07/02/17 07/02/17 Range/Units 11:41 07:13 06:20 PT 14.1 H (9.7-12.2) SECONDS INR 1.3 APTT 46 H D (21-34) SECONDS Puncture Site pCO2 (35-45) mm/Hg pO2 (80-100) mm/Hg HCO3 (21-28) mmol/L ABG pH (7.35-7.45) ABG Total CO2 (22-28) mmol/L ABG O2 Saturation (95-98) % ABG Base Excess (-2.0-3.0) mmol/L ABG Hemoglobin (11.7-17.4) g/dL ABG Carboxyhemoglobin (0.5-1.5) % POC ABG HHb (Measured) (0.0-5.0) % ABG Methemoglobin (0.0-3.0) % Jasvir Test A-a O2 Difference mm/Hg Respiratory Index Hgb O2 Saturation (95.0-98.0) % Vent Mode FiO2 % Inspiratory BiPAP Expiratory BiPAP Sodium 149 H (132-148) mmol/L Potassium 3.3 L (3.6-5.2) mmol/L Chloride 109 H (98-107) mmol/L Carbon Dioxide 24 (22-30) mmol/L Anion Gap 19 (10-20) BUN 50 H (7-17) mg/dL Creatinine 1.7 H (0.7-1.2) MG/DL Est GFR ( Amer) 35 Est GFR (Non-Af Amer) 29 POC Glucose (mg/dL) 221 H (65-110) mg/dL Random Glucose 180 H (65-105) mg/dL Calcium 8.2 L (8.6-10.4) mg/dl Phosphorus 3.5 (2.5-4.5) mg/dL Magnesium 1.5 L (1.6-2.3) mg/dL Total Bilirubin 1.1 (0.2-1.3) mg/dL AST 46 H (14-36) U/L ALT 49 (9-52) U/L Alkaline Phosphatase 83 (38-126) U/L Total Protein 6.0 L (6.3-8.3) g/dL Albumin 3.1 L (3.5-5.0) g/dL Globulin 3.0 (2.2-3.9) gm/dL Albumin/Globulin Ratio 1.0 (1.0-2.1) 07/02/17 07/02/17 07/01/17 Range/Units 05:26 05:00 23:50 PT (9.7-12.2) SECONDS INR APTT (21-34) SECONDS Puncture Site Rr pCO2 38 (35-45) mm/Hg pO2 60 L (80-100) mm/Hg HCO3 26.1 (21-28) mmol/L ABG pH 7.44 (7.35-7.45) ABG Total CO2 27.0 (22-28) mmol/L ABG O2 Saturation 97.2 (95-98) % ABG Base Excess 1.5 (-2.0-3.0) mmol/L ABG Hemoglobin 6.6 L (11.7-17.4) g/dL ABG Carboxyhemoglobin 3.2 H (0.5-1.5) % POC ABG HHb (Measured) 2.7 (0.0-5.0) % ABG Methemoglobin 1.0 (0.0-3.0) % Jasvir Test Pos A-a O2 Difference 356.0 mm/Hg Respiratory Index 5.9 Hgb O2 Saturation 93.0 L (95.0-98.0) % Vent Mode Bipap FiO2 65.0 % Inspiratory BiPAP 15 Expiratory BiPAP 6 Sodium (132-148) mmol/L Potassium (3.6-5.2) mmol/L Chloride (98-107) mmol/L Carbon Dioxide (22-30) mmol/L Anion Gap (10-20) BUN (7-17) mg/dL Creatinine (0.7-1.2) MG/DL Est GFR ( Amer) Est GFR (Non-Af Amer) POC Glucose (mg/dL) 186 H 235 H (65-110) mg/dL Random Glucose (65-105) mg/dL Calcium (8.6-10.4) mg/dl Phosphorus (2.5-4.5) mg/dL Magnesium (1.6-2.3) mg/dL Total Bilirubin (0.2-1.3) mg/dL AST (14-36) U/L ALT (9-52) U/L Alkaline Phosphatase (38-126) U/L Total Protein (6.3-8.3) g/dL Albumin (3.5-5.0) g/dL Globulin (2.2-3.9) gm/dL Albumin/Globulin Ratio (1.0-2.1) Laboratory Results - last 24 hr 07/01/17 07/02/17 07/02/17 23:50 05:00 05:26 PT INR APTT Puncture Site Rr pCO2 38 pO2 60 L HCO3 26.1 ABG pH 7.44 ABG Total CO2 27.0 ABG O2 Saturation 97.2 ABG Base Excess 1.5 ABG Hemoglobin 6.6 L ABG Carboxyhemoglobin 3.2 H POC ABG HHb (Measured) 2.7 ABG Methemoglobin 1.0 Jasvir Test Pos A-a O2 Difference 356.0 Respiratory Index 5.9 Hgb O2 Saturation 93.0 L Vent Mode Bipap FiO2 65.0 Inspiratory BiPAP 15 Expiratory BiPAP 6 Sodium Potassium Chloride Carbon Dioxide Anion Gap BUN Creatinine Est GFR ( Amer) Est GFR (Non-Af Amer) POC Glucose (mg/dL) 235 H 186 H Random Glucose Calcium Phosphorus Magnesium Total Bilirubin AST ALT Alkaline Phosphatase Total Protein Albumin Globulin Albumin/Globulin Ratio 07/02/17 07/02/17 07/02/17 06:20 07:13 11:41 PT 14.1 H INR 1.3 APTT 46 H D Puncture Site pCO2 pO2 HCO3 ABG pH ABG Total CO2 ABG O2 Saturation ABG Base Excess ABG Hemoglobin ABG Carboxyhemoglobin POC ABG HHb (Measured) ABG Methemoglobin Jasvir Test A-a O2 Difference Respiratory Index Hgb O2 Saturation Vent Mode FiO2 Inspiratory BiPAP Expiratory BiPAP Sodium 149 H Potassium 3.3 L Chloride 109 H Carbon Dioxide 24 Anion Gap 19 BUN 50 H Creatinine 1.7 H Est GFR ( Amer) 35 Est GFR (Non-Af Amer) 29 POC Glucose (mg/dL) 221 H Random Glucose 180 H Calcium 8.2 L Phosphorus 3.5 Magnesium 1.5 L Total Bilirubin 1.1 AST 46 H ALT 49 Alkaline Phosphatase 83 Total Protein 6.0 L Albumin 3.1 L Globulin 3.0 Albumin/Globulin Ratio 1.0 Fingerstick Blood Sugar Results: 221
[2017-07-02 20:08] LABS: BASO # 0.1 K/uL (0.0-0.2); BASO % 0.4 % (0.0-2.0); EOS # 0.1 K/uL (0.0-0.7); EOS % 0.5 % (0.0-4.0); HEMATOCRIT 26.2 % (34.0-47.0); LYMPH # 2.3 K/uL (1.0-4.3); LYMPH % 9.2 % (20.0-40.0); MEAN CELL VOLUME 83.6 fL (81.0-99.0); MEAN CORPUSCULAR HEMOGLOBIN 26.5 pg (27.0-31.0); MEAN CORPUSCULAR HGB CONC 31.6 g/dL (33.0-37.0); MEAN PLATELET VOLUME 9.4 fL (7.2-11.7); MONO # 1.4 K/uL (0.0-0.8); MONO % 5.4 % (0.0-10.0); NRBC % 0.2 % (0.0-2.0); PLATELET COUNT 182 K/uL (130-400); RED CELL DISTRIBUTION WIDTH 17.8 % (11.5-14.5)
[2017-07-02 20:22] LABS: POTASSIUM 3.5 mmol/L (3.6-5.2)
[2017-07-02 20:24] LABS: ALB/GLOB RATIO 1.1 (1.0-2.1); BILIRUBIN,TOTAL 1.3 mg/dL (0.2-1.3); TOTAL PROTEIN 6.7 g/dL (6.3-8.3)
[2017-07-02 20:25] LABS: CALCIUM 8.9 mg/dl (8.6-10.4); MAGNESIUM 1.8 mg/dL (1.6-2.3)
[2017-07-02 21:00] LABS: NEUTROPHIL 85 % (50-75); TOTAL CELLS COUNTED 100
[2017-07-03] MEDS: Metoprolol 1 mg/ml Inj IVP SCH ×2 (00:50→05:46)
[2017-07-03] MEDS: Heparin25000 units/250ml 1/2NS 25,000 UNITS/250 ML BAG IV PRN (01:42)
[2017-07-03] MEDS ORDERED: Labetalol 25mg/5ml Syringe IVP STA (01:46)
[2017-07-03] MEDS: (Novolin R) Insulin Human Regular 100 units/ml vial SC SCH ×6 (05:47→23:53)
[2017-07-03 06:33] LABS: BASO # 0.1 K/uL (0.0-0.2); BASO % 0.2 % (0.0-2.0); EOS # 0.1 K/uL (0.0-0.7); EOS % 0.4 % (0.0-4.0); HEMATOCRIT 25.7 % (34.0-47.0); LYMPH # 2.2 K/uL (1.0-4.3); LYMPH % 8.9 % (20.0-40.0); MEAN CELL VOLUME 84.4 fL (81.0-99.0); MEAN CORPUSCULAR HEMOGLOBIN 26.2 pg (27.0-31.0); MEAN CORPUSCULAR HGB CONC 31.1 g/dL (33.0-37.0); MEAN PLATELET VOLUME 10.8 fL (7.2-11.7); MONO # 1.3 K/uL (0.0-0.8); MONO % 5.3 % (0.0-10.0); NRBC % 0.2 % (0.0-2.0); PLATELET COUNT 181 K/uL (130-400); RED CELL DISTRIBUTION WIDTH 17.7 % (11.5-14.5); WHITE BLOOD COUNT 24.6 K/uL (4.8-10.8)
[2017-07-03 06:54] LABS: POTASSIUM 3.2 mmol/L (3.6-5.2)
[2017-07-03 06:56] LABS: BILIRUBIN,TOTAL 1.2 mg/dL (0.2-1.3); TOTAL PROTEIN 6.6 g/dL (6.3-8.3)
[2017-07-03 06:57] LABS: CALCIUM 8.8 mg/dl (8.6-10.4); MAGNESIUM 1.7 mg/dL (1.6-2.3); PHOSPHOROUS 3.3 mg/dL (2.5-4.5)
[2017-07-03 07:02] LABS: ALB/GLOB RATIO 1.1 (1.0-2.1)
--- NOTE | 2017-07-03 08:22 | RAD ---
PROCEDURE: CHEST RADIOGRAPH, 1 VIEW HISTORY: ICU Routine COMPARISON: Portable chest 07/02/2017 FINDINGS: LUNGS: Bilateral heterogeneous infiltrates per are persistent and not simply changed in the interval raising question of CHF with pneumonia not completely excluded. No pleural effusion bilaterally or pneumothorax. Cardiomediastinal silhouette is likely stable but is partly obscure infiltrates. Pulmonary vascular pattern is obscured. PLEURA: As above seen. CARDIOVASCULAR: As above. OSSEOUS STRUCTURES: No significant abnormalities. VISUALIZED UPPER ABDOMEN: Normal. OTHER FINDINGS: None. IMPRESSION: Persistent bilateral heterogeneous infiltrates are again identified waist CHF still considered the likely etiology though pneumonia is not excluded. Pulmonary vascular pattern is obscured by patchy infiltrates. Continued clinical and radiographic moderate are advised.
[2017-07-03 08:40] LABS: EOSINOPHIL 1 % (0-4); NEUTROPHIL 85 % (50-75); NUCLEATED RED BLOOD CELL 1 % (0-0); TOTAL CELLS COUNTED 100
[2017-07-03 08:43] LABS: LARGE PLATELETS PRESENT
[2017-07-03 08:44] LABS: GIANT PLATELETS PRESENT
[2017-07-03] MEDS ORDERED: Etomidate 20 mg/10ml Inj IV ONE (09:24)
[2017-07-03] MEDS ORDERED: Sodium Chloride 0.9% 500 ML IV ONE (09:28)
[2017-07-03] MEDS: Piperacill/Tazo 2.25gm in Dex 2.25 GM/50 ML BAG IVPB SCH ×3 (09:33→17:50)
--- NOTE | 2017-07-03 09:34 | PCM.SURG1 ---
Surgeon's Initial Post Op Note - Surgeon's Notes Surgeon: hilton Dining Chair Seat Cushion Trimmer: none Pre-Operative Diagnosis: respiratory failure Operative Findings: thick blood and dry mucous on the oropharyngeal area Post-Operative Diagnosis: acute respiratory failure Operation Performed: endotracheal intubation with glidscope and 7.5 size tube inserted position verified. pt is stable and sedated Specimen/Specimens Removed: none Estimated Blood Loss: EBL {In ML}: 0 Date of Surgery/Procedure: 07/03/17 Time of Surgery/Procedure: 09:34
[2017-07-03] MEDS: Propofol 10 mg/ml 1,000 MG/100 ML VIAL IV PRN (10:01)
[2017-07-03 10:44] LABS: ABG MECHANICAL RATE 14; ARTERIAL BLOOD HGB O2 SAT 96.6 % (95.0-98.0); ATERIAL BLOOD GAS PEEP 5; CARBOXYHEMOGLOBIN 1.5 % (0.5-1.5); DRAW SITE L FEM; HHB 0.7 % (0.0-5.0); METHEMOGLOBIN 1.2 % (0.0-3.0)
--- NOTE | 2017-07-03 11:57 | RAD ---
HISTORY: intubation COMPARISON: Portable chest 07/03/2017 7:24 a.m. FINDINGS: LUNGS: Patient is intubated with the endotracheal tube terminating 1 cm above the merary. Heterogeneous infiltrates appear slightly increased, greater at the right than left chest, reflecting potential worsening of CHF or pneumonia. A nasogastric tube has been placed with the distal portion directed into the abdomen with tip off the image inferiorly. . PLEURA: No significant pleural effusion identified, no pneumothorax apparent. CARDIOVASCULAR: Cardiac silhouette is likely stable though it is partially obscured by infiltrates bilaterally. OSSEOUS STRUCTURES: No significant abnormalities. VISUALIZED UPPER ABDOMEN: Normal. OTHER FINDINGS: None. IMPRESSION: Status post endotracheal and nasogastric intubation as discussed above. Bilateral heterogeneous infiltrates appears to have slightly increased, remaining asymmetric greater the right than left chest. CHF remains in question though pneumonitis or both etiologies are possible.
--- NOTE | 2017-07-03 13:00 | PN ---
DATE: LOCATION: ICU 12. SUBJECTIVE: This is a 77 years old female seen and examined early in rounds today in the presence of the staff in the intensive care unit, extubated, on VentiMask, failed first trial of swallow evaluation, appeared to be somewhat more awake and alert. The entire chart is reviewed including, but not limited to the most recent lab and radiology study results, current and previous medication list, and current and previous medical events and the patient had an episode of supraventricular tachycardia compared to normal sinus rate by Lopressor IV. Most recent lab results showed leukocytosis of 24.6 with low hemoglobin 8, hematocrit 25.7, but normal platelet count, with PTT of 49 with increased sodium at 152, but low potassium at 2.3 with BUN 43, creatinine 1.8, elevated with blood glucose level of 204, higher than before. AST is still elevated to 57, ALT 56, but normal alkaline phosphatase and normal total bilirubin that could be secondary to infectious process versus drug-induced, albumin went down to 3.4. PHYSICAL EXAMINATION: GENERAL: A 77-year-old female on VentiMask. VITAL SIGNS: Afebrile with heart rate of 88, respiratory rate 24 to 26, blood pressure 140/54. HEENT: Shows dry pale oral mucous membrane. Nonicteric sclerae. LUNGS: Scattered crepitation with decrease air entry at bases. HEART: Positive S1 and S2 with increased rate mildly. ABDOMEN: Soft. Bowel sounds are present with mild distention and mild tenderness. No mass or organomegaly. No rebound tenderness or guarding. EXTREMITIES: Lower extremities with mild edematous changes. NEUROLOGIC: No reported neurological deficits, sensory or motor recently. No focal deficits. IMPRESSION: 1. Pneumonia with element of congestive heart failure, gradually improving. 2. Dysphagia with malnutrition. 3. Hypoalbuminemia. 4. Re-exacerbation of peptic ulcer disease. 5. Anemia secondary to above. 6. Malnutrition with hypoalbuminemia. 7. Dehydration with renal consultation. It gradually, but slightly improved. 8. Reported syncopal episode prior to her admission. 9. Mild electrolyte imbalance. SUGGESTIONS: 1. I agree with your plan. 2. Correct any underlying electrolyte imbalance. 3. Repeat swallow evaluation after 24 hours, if the patient fails then PEG insertion to be considered. 4. Blood transfusion to keep hemoglobin around 10 grams percent. 5. We will follow up closely with you and hepatitis profile to be ordered due to the mildly elevated liver function tests, which I believe it is secondary to infectious process versus, less likely, chemical hepatitis, drug-induced. Diana Cazares MD cc: Diana Cazares MD Patient's Chart.
[2017-07-03 13:10] LABS: RBC URINE 30 /hpf (0-3); URINE BACTERIA OCC (<OCC); URINE BILIRUBIN NEGATIVE (NEGATIVE); URINE BLOOD 3+ (NEGATIVE); URINE COLOR Yellow (YELLOW); URINE GLUCOSE (UA) 2+ mg/dL (Normal); URINE KETONE TRACE mg/dL (NEGATIVE); URINE LEUKOCYTE ESTERASE 2+ Leu/uL (Negative); URINE PROTEIN 2+ mg/dL (NEGATIVE); URINE UROBILINOGEN NORMAL mg/dL (0.2-1.0); WBC URINE 19 /hpf (0-5)
--- NOTE | 2017-07-03 14:31 | CP.PCM.PN ---
Subjective - Date & Time of Evaluation Date of Evaluation: 07/03/17 Time of Evaluation: 14:28 - Subjective Subjective: LAST PM D/W FAMILY ONE OF THE MEMBERS IS A HOSPITALIST AT [facility] HE HAS DECLINED TO DO CARDIAC CATH DISCUSSED AT [facility]GTH , THAT THE ROOT CAUSE OF RESP. FAILURE IS CARDIAC ,ISCHEMIA , AND LV FAILURE . NEED CATH AND INTERVENTION TO CORRECT THE ISSUE FAMILY IS OF DIFFERENT OPINION CURRENTLY REINTUBED ONCE STABLE TRANSFER TO LTAC Objective - Vital Signs/Intake and Output Vital Signs (last 24 hours): Temp Pulse Resp BP Pulse Ox 98.2 F 71 35 H 117/45 L 100 07/03/17 04:00 07/03/17 10:05 07/03/17 07:36 07/03/17 10:05 07/03/17 07:36 Intake and Output: 07/03/17 07/03/17 11:59 23:59 Intake Total 423.2 111.3 Output Total 911 Balance -487.8 111.3 - Medications Medications: Current Medications Famotidine (Pepcid) 20 mg IVP DAILY [facility] Last Admin: 07/03/17 09:44 Dose: 20 mg Piperacillin Sod/Tazobactam Sod (Zosyn 2.25 Gm Iv Premix) 2.25 gm in 50 mls @ 100 mls/hr IVPB Q8H [facility] Last Admin: 07/03/17 09:33 Dose: 100 mls/hr Vancomycin/Sodium Chloride (Vancocin) 1 gm in 200 mls @ 133.333 mls/hr IVPB Q24H [facility] Last Admin: 06/28/17 13:00 Dose: Not Given Heparin Sodium/Sodium Chloride (Heparin 11439 Units/250ml 1/2 Normal Saline) 25 ,000 units in 250 mls @ 7.947 mls/hr IV .Q24H PRN; Protocol; 12 UNITS/KG/HR PRN Reason: TITRATE PER PROTOCOL Last Admin: 07/03/17 01:42 Dose: 12 units/kg/hr, 7.947 mls/hr Propofol (Diprivan) 1,000 mg in 100 mls @ 1.926 mls/hr IV .Q24H PRN; Protocol; 5 MCG/KG/MIN PRN Reason: TITRATE PER MD ORDER Last Admin: 07/03/17 10:01 Dose: 5 mcg/kg/min, 1.926 mls/hr Amiodarone HCl 900 mg/ (Dextrose) 500 mls @ 33.33 mls/hr IV .Q15H1M [facility]; 1 MG/ MIN PRN Reason: Protocol Stop: 07/03/17 16:00 Last Admin: 07/03/17 10:05 Dose: 33.33 mls/hr Amiodarone HCl 900 mg/ (Dextrose) 500 mls @ 16.66 mls/hr IV .Q24H [facility]; 0.5 MG/ MIN PRN Reason: Protocol Insulin Human Regular (Novolin R) 0 unit SC Q6 [facility] PRN Reason: Protocol Last Admin: 07/03/17 12:07 Dose: 4 unit Lorazepam (Ativan) 2 mg IVP Q6H PRN PRN Reason: Anxiety - Labs Labs: 07/03/17 06:24 07/03/17 06:19 PT 14.1 SECONDS (9.7-12.2) H 07/02/17 07:13 INR 1.3 07/02/17 07:13 APTT 49 SECONDS (21-34) H 07/03/17 06:20
--- NOTE | 2017-07-03 18:07 | CP.CCUPN ---
CCU Subjective - Physician Review Events Since Last Encounter (Free Text): 07/03/17 18:05 Patient is a 77-year-old female with history of hypertension diabetes CAD admitted with the atrial fibrillation, complicated with the congestive heart failure, renal insufficiency. But the for the last 3 days patient is on BiPAP. Not improving. Patient is agitated. Not eating well. Cough minimally noted, dry mouth noted. Patient is needing high FiO2 Chest x-ray showing worsening infiltrative changes. I spoke to the family. Under decided to intubate the patient. Patient was intubated. Currently on 100% FiO2 On examination: Vital signs are stable, but the episode a week tachycardia noted, on Cardizem drip. Chest good air entry, expiratory rales and wheezing noted no abdominal tenderness noted, edema negative Chest x-ray diffuse bilateral pulmonary infiltrate changes Assessment and recommendation: 77-year-old female with a history of hypertension diabetes atrial fibrillation with the congestive heart failure. Now possibly ARDS, are aspiration pneumonia likely. Patient is at high risk for reintubation. We'll continue the current BiPAP. Some improvement with the Lasix noted. We'll continue to monitor and will follow the patient Likely pneumonia. On antibiotic. Continue the current treatment. Sedation. Atrial fibrillation, episodes of sinus rhythm. added amiodarone. CCU Objective - Vital Signs / Intake & Output Vital Signs (Last 4 hours): Vital Signs Pulse Resp BP Pulse Ox 07/03/17 16:30 72 17 142/61 07/03/17 15:00 68 16 100 07/03/17 14:36 100 H 16 126/54 L 100 Intake and Output (Last 8hrs): Intake & Output 07/03/17 07/03/17 07/03/17 06:59 14:59 22:59 Intake Total 298.2 254.2 37.1 Output Total 664 470 Balance -365.8 -215.8 37.1 Weight 64 lb Intake: IV 125 Intake, IV Amount 173.2 254.2 37.1 Right Antecubital 63.2 190.2 33.3 Right Forearm 110 64.0 3.8 Output: Urine 664 470 Urethral (Neff) 664 470 - Physical Exam Head: Positive for: Atraumatic, Normocephalic Extroacular Muscles: Positive for: EOMI Mouth: Positive for: Moist Mucous Membranes Respiratory/Chest: Positive for: Clear to Auscultation. Negative for: Wheezes, Rales, Rhonchi Cardiovascular: Positive for: Normal S1, S2, Irregular Rhythm, Tachycardic. Negative for: Bradycardic Abdomen: Positive for: Distention, Normal Bowel Sounds. Negative for: Tenderness Upper Extremity: Positive for: Normal Inspection. Negative for: Edema Lower Extremity: Positive for: Normal Inspection. Negative for: Edema Skin: Positive for: Warm, Dry, Normal Color Psychiatric: Positive for: Alert, Lethargic - Medications Active Medications: Active Medications Generic Name Dose Route Start Last Admin Trade Name Freq PRN Reason Stop Dose Admin Famotidine 20 mg 06/26/17 10:00 07/03/17 09:44 Pepcid IVP 20 mg DAILY ASIM Administration Piperacillin Sod/Tazobactam Sod 2.25 gm in 50 mls @ 100 mls/hr 06/26/17 09:00 07/03/17 17:50 Zosyn 2.25 Gm Iv Premix IVPB 100 mls/hr Q8H ASIM Administration Vancomycin/Sodium Chloride 1 gm in 200 mls @ 133.333 mls/hr 06/27/17 12:00 13:00 Vancocin IVPB Not Given Q24H ASIM Heparin Sodium/Sodium Chloride 25,000 units in 250 mls @ 7.947 mls/hr 08:36 07/03/17 01:42 Heparin 70289 Units/250ml 1/2 Normal Saline IV 12 units/kg/hr .Q24H PRN 7.947 mls/hr TITRATE PER PROTOCOL Administration Protocol 12 UNITS/KG/HR Propofol 1,000 mg in 100 mls @ 1.926 mls/hr 07/03/17 09:24 07/03/17 10:01 Diprivan IV 5 mcg/kg/min .Q24H PRN 1.926 mls/hr TITRATE PER MD ORDER Administration Protocol 5 MCG/KG/MIN Amiodarone HCl 900 mg/ 500 mls @ 16.66 mls/hr 07/03/17 16:00 07/03/17 16:30 Dextrose IV 16.66 mls/hr .Q24H ASIM Administration Protocol 0.5 MG/MIN Insulin Human Regular 0 unit 06/27/17 13:02 07/03/17 18:02 Novolin R SC 2 unit Q6 ASIM Administration Protocol Lorazepam 2 mg 07/03/17 09:24 Ativan IVP Q6H PRN Anxiety - Patient Studies Lab Studies: Microbiology Studies 07/03/17 Unknown Gram Stain - Final Trachasp Lab Studies 07/03/17 07/03/17 07/03/17 Range/Units 17:28 12:55 11:32 WBC (4.8-10.8) K/uL RBC (3.80-5.20) Mil/uL Hgb (11.0-16.0) g/dL Hct (34.0-47.0) % MCV (81.0-99.0) fL MCH (27.0-31.0) pg MCHC (33.0-37.0) g/dL RDW (11.5-14.5) % Plt Count (130-400) K/uL MPV (7.2-11.7) fL Neut % (Auto) (50.0-75.0) % Lymph % (Auto) (20.0-40.0) % Reynolds % (Auto) (0.0-10.0) % Eos % (Auto) (0.0-4.0) % Baso % (Auto) (0.0-2.0) % Neut # (1.8-7.0) K/uL Lymph # (1.0-4.3) K/uL Reynolds # (0.0-0.8) K/uL Eos # (0.0-0.7) K/uL Baso # (0.0-0.2) K/uL Neutrophils % (Manual) (50-75) % Band Neutrophils % (0-2) % Lymphocytes % (Manual) (20-40) % Monocytes % (Manual) (0-10) % Eosinophils % (Manual) (0-4) % Nucleated RBC % (0-0) % Toxic Granulation Platelet Estimate (NORMAL) Large Platelets Giant Platelets Polychromasia Hypochromasia (manual) Poikilocytosis (manual Anisocytosis (manual) Macrocytosis (manual) Target Cells Ovalocytes APTT (21-34) SECONDS Puncture Site pCO2 (35-45) mm/Hg pO2 (80-100) mm/Hg HCO3 (21-28) mmol/L ABG pH (7.35-7.45) ABG Total CO2 (22-28) mmol/L ABG O2 Saturation (95-98) % ABG Base Excess (-2.0-3.0) mmol/L ABG Hemoglobin (11.7-17.4) g/dL ABG Carboxyhemoglobin (0.5-1.5) % POC ABG HHb (Measured) (0.0-5.0) % ABG Methemoglobin (0.0-3.0) % Jasvir Test A-a O2 Difference mm/Hg Respiratory Index Hgb O2 Saturation (95.0-98.0) % Mechanical Rate FiO2 % Tidal Volume PEEP Crit Value Called To Crit Value Called By Crit Value Read Back Blood Gas Notified Time Sodium (132-148) mmol/L Potassium (3.6-5.2) mmol/L Chloride (98-107) mmol/L Carbon Dioxide (22-30) mmol/L Anion Gap (10-20) BUN (7-17) mg/dL Creatinine (0.7-1.2) MG/DL Est GFR ( Amer) Est GFR (Non-Af Amer) POC Glucose (mg/dL) 202 H 251 H (65-110) mg/dL Random Glucose (65-105) mg/dL Calcium (8.6-10.4) mg/dl Phosphorus (2.5-4.5) mg/dL Magnesium (1.6-2.3) mg/dL Total Bilirubin (0.2-1.3) mg/dL AST (14-36) U/L ALT (9-52) U/L Alkaline Phosphatase (38-126) U/L Total Protein (6.3-8.3) g/dL Albumin (3.5-5.0) g/dL Globulin (2.2-3.9) gm/dL Albumin/Globulin Ratio (1.0-2.1) Urine Color Yellow (YELLOW) Urine Clarity Hazy (Clear) Urine pH 5.0 (5.0-8.0) Ur Specific [place] 1.019 (1.003-1.030) Urine Protein 2+ H (NEGATIVE) mg/dL Urine Glucose (UA) 2+ H (Normal) mg/dL Urine Ketones Trace (NEGATIVE) mg/dL Urine Blood 3+ H (NEGATIVE) Urine Nitrate Negative (NEGATIVE) Urine Bilirubin Negative (NEGATIVE) Urine Urobilinogen Normal (0.2-1.0) mg/dL Ur Leukocyte Esterase 2+ H (Negative) Reed/uL Urine WBC (Auto) 19 H (0-5) /hpf Urine RBC (Auto) 30 H (0-3) /hpf Ur Squamous Epith Cells < 1 (0-5) /hpf Urine Bacteria Occ H (<OCC) Urine Yeast (Budding) Many H (NEGATIVE) /hpf 07/03/17 07/03/17 07/03/17 Range/Units 10:25 06:24 06:20 WBC 24.6 H (4.8-10.8) K/uL RBC 3.05 L (3.80-5.20) Mil/uL Hgb 8.0 L (11.0-16.0) g/dL Hct 25.7 L (34.0-47.0) % MCV 84.4 (81.0-99.0) fL MCH 26.2 L (27.0-31.0) pg MCHC 31.1 L (33.0-37.0) g/dL RDW 17.7 H (11.5-14.5) % Plt Count 181 (130-400) K/uL MPV 10.8 (7.2-11.7) fL Neut % (Auto) 85.2 H (50.0-75.0) % Lymph % (Auto) 8.9 L (20.0-40.0) % Reynolds % (Auto) 5.3 (0.0-10.0) % Eos % (Auto) 0.4 (0.0-4.0) % Baso % (Auto) 0.2 (0.0-2.0) % Neut # 21.0 H (1.8-7.0) K/uL Lymph # 2.2 (1.0-4.3) K/uL Reynolds # 1.3 H (0.0-0.8) K/uL Eos # 0.1 (0.0-0.7) K/uL Baso # 0.1 (0.0-0.2) K/uL Neutrophils % (Manual) 85 H (50-75) % Band Neutrophils % 4 H (0-2) % Lymphocytes % (Manual) 7 L (20-40) % Monocytes % (Manual) 3 (0-10) % Eosinophils % (Manual) 1 (0-4) % Nucleated RBC % 1 H (0-0) % Toxic Granulation Present Platelet Estimate Normal (NORMAL) Large Platelets Present Giant Platelets Present Polychromasia Slight Hypochromasia (manual) Slight Poikilocytosis (manual Slight Anisocytosis (manual) Moderate Macrocytosis (manual) Slight Target Cells Slight Ovalocytes Slight APTT 49 H (21-34) SECONDS Puncture Site L fem pCO2 37 (35-45) mm/Hg pO2 118 H (80-100) mm/Hg HCO3 25.2 (21-28) mmol/L ABG pH 7.43 (7.35-7.45) ABG Total CO2 25.7 (22-28) mmol/L ABG O2 Saturation 99.3 H (95-98) % ABG Base Excess 0.4 (-2.0-3.0) mmol/L ABG Hemoglobin 11.6 L (11.7-17.4) g/dL ABG Carboxyhemoglobin 1.5 (0.5-1.5) % POC ABG HHb (Measured) 0.7 (0.0-5.0) % ABG Methemoglobin 1.2 (0.0-3.0) % Jasvir Test Na A-a O2 Difference 549.0 mm/Hg Respiratory Index 4.7 Hgb O2 Saturation 96.6 (95.0-98.0) % Mechanical Rate 14 FiO2 100.0 % Tidal Volume 400 PEEP 5 Crit Value Called To Dr mares Crit Value Called By Stuart rivas cutting table operator Crit Value Read Back Y Blood Gas Notified Time 1040 Sodium (132-148) mmol/L Potassium (3.6-5.2) mmol/L Chloride (98-107) mmol/L Carbon Dioxide (22-30) mmol/L Anion Gap (10-20) BUN (7-17) mg/dL Creatinine (0.7-1.2) MG/DL Est GFR ( Amer) Est GFR (Non-Af Amer) POC Glucose (mg/dL) (65-110) mg/dL Random Glucose (65-105) mg/dL Calcium (8.6-10.4) mg/dl Phosphorus (2.5-4.5) mg/dL Magnesium (1.6-2.3) mg/dL Total Bilirubin (0.2-1.3) mg/dL AST (14-36) U/L ALT (9-52) U/L Alkaline Phosphatase (38-126) U/L Total Protein (6.3-8.3) g/dL Albumin (3.5-5.0) g/dL Globulin (2.2-3.9) gm/dL Albumin/Globulin Ratio (1.0-2.1) Urine Color (YELLOW) Urine Clarity (Clear) Urine pH (5.0-8.0) Ur Specific [place] (1.003-1.030) Urine Protein (NEGATIVE) mg/dL Urine Glucose (UA) (Normal) mg/dL Urine Ketones (NEGATIVE) mg/dL Urine Blood (NEGATIVE) Urine Nitrate (NEGATIVE) Urine Bilirubin (NEGATIVE) Urine Urobilinogen (0.2-1.0) mg/dL Ur Leukocyte Esterase (Negative) Reed/uL Urine WBC (Auto) (0-5) /hpf Urine RBC (Auto) (0-3) /hpf Ur Squamous Epith Cells (0-5) /hpf Urine Bacteria (<OCC) Urine Yeast (Budding) (NEGATIVE) /hpf 07/03/17 07/03/17 07/03/17 Range/Units 06:19 05:33 00:07 WBC (4.8-10.8) K/uL RBC (3.80-5.20) Mil/uL Hgb (11.0-16.0) g/dL Hct (34.0-47.0) % MCV (81.0-99.0) fL MCH (27.0-31.0) pg MCHC (33.0-37.0) g/dL RDW (11.5-14.5) % Plt Count (130-400) K/uL MPV (7.2-11.7) fL Neut % (Auto) (50.0-75.0) % Lymph % (Auto) (20.0-40.0) % Reynolds % (Auto) (0.0-10.0) % Eos % (Auto) (0.0-4.0) % Baso % (Auto) (0.0-2.0) % Neut # (1.8-7.0) K/uL Lymph # (1.0-4.3) K/uL Reynolds # (0.0-0.8) K/uL Eos # (0.0-0.7) K/uL Baso # (0.0-0.2) K/uL Neutrophils % (Manual) (50-75) % Band Neutrophils % (0-2) % Lymphocytes % (Manual) (20-40) % Monocytes % (Manual) (0-10) % Eosinophils % (Manual) (0-4) % Nucleated RBC % (0-0) % Toxic Granulation Platelet Estimate (NORMAL) Large Platelets Giant Platelets Polychromasia Hypochromasia (manual) Poikilocytosis (manual Anisocytosis (manual) Macrocytosis (manual) Target Cells Ovalocytes APTT (21-34) SECONDS Puncture Site pCO2 (35-45) mm/Hg pO2 (80-100) mm/Hg HCO3 (21-28) mmol/L ABG pH (7.35-7.45) ABG Total CO2 (22-28) mmol/L ABG O2 Saturation (95-98) % ABG Base Excess (-2.0-3.0) mmol/L ABG Hemoglobin (11.7-17.4) g/dL ABG Carboxyhemoglobin (0.5-1.5) % POC ABG HHb (Measured) (0.0-5.0) % ABG Methemoglobin (0.0-3.0) % Jasvir Test A-a O2 Difference mm/Hg Respiratory Index Hgb O2 Saturation (95.0-98.0) % Mechanical Rate FiO2 % Tidal Volume PEEP Crit Value Called To Crit Value Called By Crit Value Read Back Blood Gas Notified Time Sodium 152 H (132-148) mmol/L Potassium 3.2 L (3.6-5.2) mmol/L Chloride 107 (98-107) mmol/L Carbon Dioxide 27 (22-30) mmol/L Anion Gap 21 H (10-20) BUN 43 H (7-17) mg/dL Creatinine 1.8 H (0.7-1.2) MG/DL Est GFR ( Amer) 33 Est GFR (Non-Af Amer) 27 POC Glucose (mg/dL) 209 H 213 H (65-110) mg/dL Random Glucose 204 H (65-105) mg/dL Calcium 8.8 (8.6-10.4) mg/dl Phosphorus 3.3 (2.5-4.5) mg/dL Magnesium 1.7 (1.6-2.3) mg/dL Total Bilirubin 1.2 (0.2-1.3) mg/dL AST 57 H (14-36) U/L ALT 56 H (9-52) U/L Alkaline Phosphatase 97 (38-126) U/L Total Protein 6.6 (6.3-8.3) g/dL Albumin 3.4 L (3.5-5.0) g/dL Globulin 3.2 (2.2-3.9) gm/dL Albumin/Globulin Ratio 1.1 (1.0-2.1) Urine Color (YELLOW) Urine Clarity (Clear) Urine pH (5.0-8.0) Ur Specific [place] (1.003-1.030) Urine Protein (NEGATIVE) mg/dL Urine Glucose (UA) (Normal) mg/dL Urine Ketones (NEGATIVE) mg/dL Urine Blood (NEGATIVE) Urine Nitrate (NEGATIVE) Urine Bilirubin (NEGATIVE) Urine Urobilinogen (0.2-1.0) mg/dL Ur Leukocyte Esterase (Negative) Reed/uL Urine WBC (Auto) (0-5) /hpf Urine RBC (Auto) (0-3) /hpf Ur Squamous Epith Cells (0-5) /hpf Urine Bacteria (<OCC) Urine Yeast (Budding) (NEGATIVE) /hpf 07/02/17 07/02/17 07/02/17 Range/Units 20:05 20:05 18:09 WBC 25.0 H (4.8-10.8) K/uL RBC 3.13 L (3.80-5.20) Mil/uL Hgb 8.3 L (11.0-16.0) g/dL Hct 26.2 L (34.0-47.0) % MCV 83.6 (81.0-99.0) fL MCH 26.5 L (27.0-31.0) pg MCHC 31.6 L (33.0-37.0) g/dL RDW 17.8 H (11.5-14.5) % Plt Count 182 (130-400) K/uL MPV 9.4 (7.2-11.7) fL Neut % (Auto) 84.5 H (50.0-75.0) % Lymph % (Auto) 9.2 L (20.0-40.0) % Reynolds % (Auto) 5.4 (0.0-10.0) % Eos % (Auto) 0.5 (0.0-4.0) % Baso % (Auto) 0.4 (0.0-2.0) % Neut # 21.1 H (1.8-7.0) K/uL Lymph # 2.3 (1.0-4.3) K/uL Reynolds # 1.4 H (0.0-0.8) K/uL Eos # 0.1 (0.0-0.7) K/uL Baso # 0.1 (0.0-0.2) K/uL Neutrophils % (Manual) 85 H (50-75) % Band Neutrophils % (0-2) % Lymphocytes % (Manual) 14 L (20-40) % Monocytes % (Manual) 1 (0-10) % Eosinophils % (Manual) (0-4) % Nucleated RBC % (0-0) % Toxic Granulation Platelet Estimate Normal (NORMAL) Large Platelets Giant Platelets Polychromasia Slight Hypochromasia (manual) Moderate Poikilocytosis (manual Anisocytosis (manual) Slight Macrocytosis (manual) Target Cells Ovalocytes APTT (21-34) SECONDS Puncture Site pCO2 (35-45) mm/Hg pO2 (80-100) mm/Hg HCO3 (21-28) mmol/L ABG pH (7.35-7.45) ABG Total CO2 (22-28) mmol/L ABG O2 Saturation (95-98) % ABG Base Excess (-2.0-3.0) mmol/L ABG Hemoglobin (11.7-17.4) g/dL ABG Carboxyhemoglobin (0.5-1.5) % POC ABG HHb (Measured) (0.0-5.0) % ABG Methemoglobin (0.0-3.0) % Jasvir Test A-a O2 Difference mm/Hg Respiratory Index Hgb O2 Saturation (95.0-98.0) % Mechanical Rate FiO2 % Tidal Volume PEEP Crit Value Called To Crit Value Called By Crit Value Read Back Blood Gas Notified Time Sodium 152 H (132-148) mmol/L Potassium 3.5 L (3.6-5.2) mmol/L Chloride 107 (98-107) mmol/L Carbon Dioxide 28 (22-30) mmol/L Anion Gap 21 H (10-20) BUN 45 H (7-17) mg/dL Creatinine 1.9 H (0.7-1.2) MG/DL Est GFR ( Amer) 31 Est GFR (Non-Af Amer) 26 POC Glucose (mg/dL) 226 H (65-110) mg/dL Random Glucose 208 H (65-105) mg/dL Calcium 8.9 (8.6-10.4) mg/dl Phosphorus (2.5-4.5) mg/dL Magnesium 1.8 (1.6-2.3) mg/dL Total Bilirubin 1.3 (0.2-1.3) mg/dL AST 48 H (14-36) U/L ALT 58 H (9-52) U/L Alkaline Phosphatase 91 (38-126) U/L Total Protein 6.7 (6.3-8.3) g/dL Albumin 3.5 (3.5-5.0) g/dL Globulin 3.2 (2.2-3.9) gm/dL Albumin/Globulin Ratio 1.1 (1.0-2.1) Urine Color (YELLOW) Urine Clarity (Clear) Urine pH (5.0-8.0) Ur Specific [place] (1.003-1.030) Urine Protein (NEGATIVE) mg/dL Urine Glucose (UA) (Normal) mg/dL Urine Ketones (NEGATIVE) mg/dL Urine Blood (NEGATIVE) Urine Nitrate (NEGATIVE) Urine Bilirubin (NEGATIVE) Urine Urobilinogen (0.2-1.0) mg/dL Ur Leukocyte Esterase (Negative) Reed/uL Urine WBC (Auto) (0-5) /hpf Urine RBC (Auto) (0-3) /hpf Ur Squamous Epith Cells (0-5) /hpf Urine Bacteria (<OCC) Urine Yeast (Budding) (NEGATIVE) /hpf Laboratory Results - last 24 hr 07/02/17 07/02/17 07/02/17 18:09 20:05 20:05 WBC 25.0 H RBC 3.13 L Hgb 8.3 L Hct 26.2 L MCV 83.6 MCH 26.5 L MCHC 31.6 L RDW 17.8 H Plt Count 182 MPV 9.4 Neut % (Auto) 84.5 H Lymph % (Auto) 9.2 L Reynolds % (Auto) 5.4 Eos % (Auto) 0.5 Baso % (Auto) 0.4 Neut # 21.1 H Lymph # 2.3 Reynolds # 1.4 H Eos # 0.1 Baso # 0.1 Neutrophils % (Manual) 85 H Band Neutrophils % Lymphocytes % (Manual) 14 L Monocytes % (Manual) 1 Eosinophils % (Manual) Nucleated RBC % Toxic Granulation Platelet Estimate Normal Large Platelets Giant Platelets Polychromasia Slight Hypochromasia (manual) Moderate Poikilocytosis (manual Anisocytosis (manual) Slight Macrocytosis (manual) Target Cells Ovalocytes APTT Puncture Site pCO2 pO2 HCO3 ABG pH ABG Total CO2 ABG O2 Saturation ABG Base Excess ABG Hemoglobin ABG Carboxyhemoglobin POC ABG HHb (Measured) ABG Methemoglobin Jasvir Test A-a O2 Difference Respiratory Index Hgb O2 Saturation Mechanical Rate FiO2 Tidal Volume PEEP Crit Value Called To Crit Value Called By Crit Value Read Back Blood Gas Notified Time Sodium 152 H Potassium 3.5 L Chloride 107 Carbon Dioxide 28 Anion Gap 21 H BUN 45 H Creatinine 1.9 H Est GFR ( Amer) 31 Est GFR (Non-Af Amer) 26 POC Glucose (mg/dL) 226 H Random Glucose 208 H Calcium 8.9 Phosphorus Magnesium 1.8 Total Bilirubin 1.3 AST 48 H ALT 58 H Alkaline Phosphatase 91 Total Protein 6.7 Albumin 3.5 Globulin 3.2 Albumin/Globulin Ratio 1.1 Urine Color Urine Clarity Urine pH Ur Specific [place] Urine Protein Urine Glucose (UA) Urine Ketones Urine Blood Urine Nitrate Urine Bilirubin Urine Urobilinogen Ur Leukocyte Esterase Urine WBC (Auto) Urine RBC (Auto) Ur Squamous Epith Cells Urine Bacteria Urine Yeast (Budding) 07/03/17 07/03/17 07/03/17 00:07 05:33 06:19 WBC RBC Hgb Hct MCV MCH MCHC RDW Plt Count MPV Neut % (Auto) Lymph % (Auto) Reynolds % (Auto) Eos % (Auto) Baso % (Auto) Neut # Lymph # Reynolds # Eos # Baso # Neutrophils % (Manual) Band Neutrophils % Lymphocytes % (Manual) Monocytes % (Manual) Eosinophils % (Manual) Nucleated RBC % Toxic Granulation Platelet Estimate Large Platelets Giant Platelets Polychromasia Hypochromasia (manual) Poikilocytosis (manual Anisocytosis (manual) Macrocytosis (manual) Target Cells Ovalocytes APTT Puncture Site pCO2 pO2 HCO3 ABG pH ABG Total CO2 ABG O2 Saturation ABG Base Excess ABG Hemoglobin ABG Carboxyhemoglobin POC ABG HHb (Measured) ABG Methemoglobin Jasvir Test A-a O2 Difference Respiratory Index Hgb O2 Saturation Mechanical Rate FiO2 Tidal Volume PEEP Crit Value Called To Crit Value Called By Crit Value Read Back Blood Gas Notified Time Sodium 152 H Potassium 3.2 L Chloride 107 Carbon Dioxide 27 Anion Gap 21 H BUN 43 H Creatinine 1.8 H Est GFR ( Amer) 33 Est GFR (Non-Af Amer) 27 POC Glucose (mg/dL) 213 H 209 H Random Glucose 204 H Calcium 8.8 Phosphorus 3.3 Magnesium 1.7 Total Bilirubin 1.2 AST 57 H ALT 56 H Alkaline Phosphatase 97 Total Protein 6.6 Albumin 3.4 L Globulin 3.2 Albumin/Globulin Ratio 1.1 Urine Color Urine Clarity Urine pH Ur Specific [place] Urine Protein Urine Glucose (UA) Urine Ketones Urine Blood Urine Nitrate Urine Bilirubin Urine Urobilinogen Ur Leukocyte Esterase Urine WBC (Auto) Urine RBC (Auto) Ur Squamous Epith Cells Urine Bacteria Urine Yeast (Budding) 07/03/17 07/03/17 07/03/17 06:20 06:24 10:25 WBC 24.6 H RBC 3.05 L Hgb 8.0 L Hct 25.7 L MCV 84.4 MCH 26.2 L MCHC 31.1 L RDW 17.7 H Plt Count 181 MPV 10.8 Neut % (Auto) 85.2 H Lymph % (Auto) 8.9 L Reynolds % (Auto) 5.3 Eos % (Auto) 0.4 Baso % (Auto) 0.2 Neut # 21.0 H Lymph # 2.2 Reynolds # 1.3 H Eos # 0.1 Baso # 0.1 Neutrophils % (Manual) 85 H Band Neutrophils % 4 H Lymphocytes % (Manual) 7 L Monocytes % (Manual) 3 Eosinophils % (Manual) 1 Nucleated RBC % 1 H Toxic Granulation Present Platelet Estimate Normal Large Platelets Present Giant Platelets Present Polychromasia Slight Hypochromasia (manual) Slight Poikilocytosis (manual Slight Anisocytosis (manual) Moderate Macrocytosis (manual) Slight Target Cells Slight Ovalocytes Slight APTT 49 H Puncture Site L fem pCO2 37 pO2 118 H HCO3 25.2 ABG pH 7.43 ABG Total CO2 25.7 ABG O2 Saturation 99.3 H ABG Base Excess 0.4 ABG Hemoglobin 11.6 L ABG Carboxyhemoglobin 1.5 POC ABG HHb (Measured) 0.7 ABG Methemoglobin 1.2 Jasvir Test Na A-a O2 Difference 549.0 Respiratory Index 4.7 Hgb O2 Saturation 96.6 Mechanical Rate 14 FiO2 100.0 Tidal Volume 400 PEEP 5 Crit Value Called To Dr mares Crit Value Called By Stuart rivas cutting table operator Crit Value Read Back Y Blood Gas Notified Time 1040 Sodium Potassium Chloride Carbon Dioxide Anion Gap BUN Creatinine Est GFR ( Amer) Est GFR (Non-Af Amer) POC Glucose (mg/dL) Random Glucose Calcium Phosphorus Magnesium Total Bilirubin AST ALT Alkaline Phosphatase Total Protein Albumin Globulin Albumin/Globulin Ratio Urine Color Urine Clarity Urine pH Ur Specific [place] Urine Protein Urine Glucose (UA) Urine Ketones Urine Blood Urine Nitrate Urine Bilirubin Urine Urobilinogen Ur Leukocyte Esterase Urine WBC (Auto) Urine RBC (Auto) Ur Squamous Epith Cells Urine Bacteria Urine Yeast (Budding) 07/03/17 07/03/17 07/03/17 11:32 12:55 17:28 WBC RBC Hgb Hct MCV MCH MCHC RDW Plt Count MPV Neut % (Auto) Lymph % (Auto) Reynolds % (Auto) Eos % (Auto) Baso % (Auto) Neut # Lymph # Reynolds # Eos # Baso # Neutrophils % (Manual) Band Neutrophils % Lymphocytes % (Manual) Monocytes % (Manual) Eosinophils % (Manual) Nucleated RBC % Toxic Granulation Platelet Estimate Large Platelets Giant Platelets Polychromasia Hypochromasia (manual) Poikilocytosis (manual Anisocytosis (manual) Macrocytosis (manual) Target Cells Ovalocytes APTT Puncture Site pCO2 pO2 HCO3 ABG pH ABG Total CO2 ABG O2 Saturation ABG Base Excess ABG Hemoglobin ABG Carboxyhemoglobin POC ABG HHb (Measured) ABG Methemoglobin Jasvir Test A-a O2 Difference Respiratory Index Hgb O2 Saturation Mechanical Rate FiO2 Tidal Volume PEEP Crit Value Called To Crit Value Called By Crit Value Read Back Blood Gas Notified Time Sodium Potassium Chloride Carbon Dioxide Anion Gap BUN Creatinine Est GFR ( Amer) Est GFR (Non-Af Amer) POC Glucose (mg/dL) 251 H 202 H Random Glucose Calcium Phosphorus Magnesium Total Bilirubin AST ALT Alkaline Phosphatase Total Protein Albumin Globulin Albumin/Globulin Ratio Urine Color Yellow Urine Clarity Hazy Urine pH 5.0 Ur Specific [place] 1.019 Urine Protein 2+ H Urine Glucose (UA) 2+ H Urine Ketones Trace Urine Blood 3+ H Urine Nitrate Negative Urine Bilirubin Negative Urine Urobilinogen Normal Ur Leukocyte Esterase 2+ H Urine WBC (Auto) 19 H Urine RBC (Auto) 30 H Ur Squamous Epith Cells < 1 Urine Bacteria Occ H Urine Yeast (Budding) Many H Fingerstick Blood Sugar Results: 2,021
[2017-07-03 22:17] LABS: ABG ALLEN TEST POS; ABG MECHANICAL RATE 14; ARTERIAL BLOOD GAS MODE A/C; ARTERIAL BLOOD HGB O2 SAT 96.4 % (95.0-98.0); ATERIAL BLOOD GAS PEEP 5; CARBOXYHEMOGLOBIN 1.7 % (0.5-1.5); DRAW SITE RRA; HHB 0.3 % (0.0-5.0); METHEMOGLOBIN 1.6 % (0.0-3.0)
[2017-07-04] MEDS: Piperacill/Tazo 2.25gm in Dex 2.25 GM/50 ML BAG IVPB SCH ×3 (01:27→16:29)
[2017-07-04 04:52] LABS: ABG ALLEN TEST POS; ABG MECHANICAL RATE 10; ARTERIAL BLOOD GAS MODE PRVC; ARTERIAL BLOOD HGB O2 SAT 96.6 % (95.0-98.0); ATERIAL BLOOD GAS PEEP 5; CARBOXYHEMOGLOBIN 2.1 % (0.5-1.5); DRAW SITE RR; METHEMOGLOBIN 1.3 % (0.0-3.0)
[2017-07-04 06:37] LABS: BASO # 0.2 K/uL (0.0-0.2); BASO % 0.8 % (0.0-2.0); EOS # 0.3 K/uL (0.0-0.7); EOS % 1.4 % (0.0-4.0); HEMATOCRIT 22.9 % (34.0-47.0); LYMPH # 2.4 K/uL (1.0-4.3); LYMPH % 9.7 % (20.0-40.0); MEAN CELL VOLUME 85.3 fL (81.0-99.0); MEAN CORPUSCULAR HEMOGLOBIN 26.1 pg (27.0-31.0); MEAN CORPUSCULAR HGB CONC 30.6 g/dL (33.0-37.0); MEAN PLATELET VOLUME 11.3 fL (7.2-11.7); MONO # 0.7 K/uL (0.0-0.8); MONO % 2.8 % (0.0-10.0); NRBC % 0.1 % (0.0-2.0); PLATELET COUNT 168 K/uL (130-400); RED CELL DISTRIBUTION WIDTH 18.4 % (11.5-14.5); WHITE BLOOD COUNT 24.5 K/uL (4.8-10.8)
[2017-07-04] MEDS: (Novolin R) Insulin Human Regular 100 units/ml vial SC SCH ×3 (06:55→18:24)
[2017-07-04 06:56] LABS: BILIRUBIN,TOTAL 0.8 mg/dL (0.2-1.3); CALCIUM 8.2 mg/dl (8.6-10.4); MAGNESIUM 1.7 mg/dL (1.6-2.3); PHOSPHOROUS 2.5 mg/dL (2.5-4.5); POTASSIUM 2.8 mmol/L (3.6-5.2); TOTAL PROTEIN 5.4 g/dL (6.3-8.3)
[2017-07-04 08:32] LABS: NEUTROPHIL 88 % (50-75); TOTAL CELLS COUNTED 100
--- NOTE | 2017-07-04 10:03 | RAD ---
PROCEDURE: CHEST RADIOGRAPH, 1 VIEW HISTORY: vent COMPARISON: None available. FINDINGS: LUNGS: Extensive resolution of bilateral infiltrates, diffuse right and left basilar when compared to prior examination. PLEURA: No pleural effusion or pneumothorax. CARDIOVASCULAR: Normal heart size. No congestive change. ET tube tip approximately 9 mm above the tracheal merary. Consideration should be given to repositioning more proximally within the trachea. Nasogastric tube appropriately positioned. OSSEOUS STRUCTURES: No significant abnormalities. VISUALIZED UPPER ABDOMEN: Normal. OTHER FINDINGS: None. IMPRESSION: ET tube tip 9 mm above the tracheal merary. Consideration should be given to more proximal positioning of the endotracheal tube. Nasogastric tube unchanged. Extensive resolution of infiltrates compared to prior examination.
--- NOTE | 2017-07-04 11:06 | CP.PCM.PN ---
Subjective - Date & Time of Evaluation Date of Evaluation: 07/04/17 Time of Evaluation: 11:04 - Subjective Subjective: Remains on vent [id number]=[id number]/24 hrs Creat about same- likely with CKD 4 from DM Has proteinuria- can quantify Possibly nephrotic HTN controlled K needs repletion Objective - Vital Signs/Intake and Output Vital Signs (last 24 hours): Temp Pulse Resp BP Pulse Ox 99.7 F H 109 H 21 133/57 L 100 07/04/17 08:00 07/04/17 09:00 07/04/17 09:00 07/04/17 08:37 07/04/17 09:00 Intake and Output: 07/04/17 07/04/17 06:59 18:59 Intake Total 625.2 122.0 Output Total 425 60 Balance 200.2 62.0 - Medications Medications: Current Medications Albuterol/Ipratropium (Duoneb 3 Mg/0.5 Mg (3 Ml) Ud) 3 ml INH RQ6 [facility] Famotidine (Pepcid) 20 mg IVP DAILY [facility] Last Admin: 07/04/17 09:36 Dose: 20 mg Piperacillin Sod/Tazobactam Sod (Zosyn 2.25 Gm Iv Premix) 2.25 gm in 50 mls @ 100 mls/hr IVPB Q8H [facility] Last Admin: 07/04/17 08:59 Dose: 100 mls/hr Vancomycin/Sodium Chloride (Vancocin) 1 gm in 200 mls @ 133.333 mls/hr IVPB Q24H [facility] Last Admin: 06/28/17 13:00 Dose: Not Given Heparin Sodium/Sodium Chloride (Heparin 89320 Units/250ml 1/2 Normal Saline) 25 ,000 units in 250 mls @ 7.947 mls/hr IV .Q24H PRN; Protocol; 12 UNITS/KG/HR PRN Reason: TITRATE PER PROTOCOL Last Admin: 07/03/17 01:42 Dose: 12 units/kg/hr, 7.947 mls/hr Propofol (Diprivan) 1,000 mg in 100 mls @ 1.926 mls/hr IV .Q24H PRN; Protocol; 5 MCG/KG/MIN PRN Reason: TITRATE PER MD ORDER Last Admin: 07/03/17 10:01 Dose: 5 mcg/kg/min, 1.926 mls/hr Amiodarone HCl 900 mg/ (Dextrose) 500 mls @ 16.66 mls/hr IV .Q24H [facility]; 0.5 MG/ MIN PRN Reason: Protocol Last Admin: 07/04/17 07:30 Dose: 16.66 mls/hr Potassium Chloride (Potassium Chloride 20 Meq/100 Ml) 20 meq in 100 mls @ 50 mls/hr IVPB Q2 [facility] Stop: 07/04/17 13:59 Last Admin: 07/04/17 10:35 Dose: 50 mls/hr Insulin Human Regular (Novolin R) 0 unit SC Q6 [facility] PRN Reason: Protocol Last Admin: 07/04/17 06:55 Dose: 3 unit Lorazepam (Ativan) 2 mg IVP Q6H PRN PRN Reason: Anxiety - Labs Labs: 07/04/17 06:25 07/04/17 06:25 PT 14.1 SECONDS (9.7-12.2) H 07/02/17 07:13 INR 1.3 07/02/17 07:13 APTT 49 SECONDS (21-34) H 07/03/17 06:20 - Constitutional Appears: In Acute Distress, Chronically Ill - Head Exam Head Exam: ATRAUMATIC, NORMAL INSPECTION - Eye Exam Eye Exam: EOMI, Normal appearance - Neck Exam Neck Exam: Normal Inspection. absent: Tenderness - Respiratory Exam Respiratory Exam: Rhonchi, Respiratory Distress - Cardiovascular Exam Cardiovascular Exam: REGULAR RHYTHM, +S1 - GI/Abdominal Exam GI & Abdominal Exam: Soft. absent: Tenderness - Extremities Exam Extremities Exam: Normal Inspection, Tenderness - Neurological Exam Neurological Exam: Altered, CN II-XII Intact - Skin Skin Exam: Dry, Warm Assessment and Plan (1) CKD stage 4 due to type 2 diabetes mellitus Status: Acute (2) Proteinuria due to type 2 diabetes mellitus Status: Acute (3) Pulmonary edema Status: Acute - Assessment and Plan (Free Text) Plan: Quantify protein excretion rate Diurese as needed Replete lytes prn
[2017-07-04] MEDS: Albuterol-Ipratrop 3 mg / 0.5 (3 ml) UD INH SCH ×3 (13:50→19:19)
--- NOTE | 2017-07-04 13:57 | CP.PCM.PN ---
Subjective - Date & Time of Evaluation Date of Evaluation: 07/04/17 Time of Evaluation: 13:56 - Subjective Subjective: ON VENT CXR IMPROVED , PROBABLY FLUID CR IS BACK TO 2.1 HIGH RISK CARDIAC CATH ICU SUPPORTIVE TREATMENT Objective - Vital Signs/Intake and Output Vital Signs (last 24 hours): Temp Pulse Resp BP Pulse Ox 99.1 F 75 19 123/45 L 100 07/04/17 12:00 07/04/17 13:00 07/04/17 13:00 07/04/17 12:36 07/04/17 13:00 Intake and Output: 07/04/17 07/04/17 11:59 23:59 Intake Total 827.6 202.4 Output Total 430 65 Balance 397.6 137.4 - Medications Medications: Current Medications Albuterol/Ipratropium (Duoneb 3 Mg/0.5 Mg (3 Ml) Ud) 3 ml INH RQ6 [facility] Last Admin: 07/04/17 13:51 Dose: Not Given Famotidine (Pepcid) 20 mg IVP DAILY [facility] Last Admin: 07/04/17 09:36 Dose: 20 mg Piperacillin Sod/Tazobactam Sod (Zosyn 2.25 Gm Iv Premix) 2.25 gm in 50 mls @ 100 mls/hr IVPB Q8H [facility] Last Admin: 07/04/17 08:59 Dose: 100 mls/hr Vancomycin/Sodium Chloride (Vancocin) 1 gm in 200 mls @ 133.333 mls/hr IVPB Q24H [facility] Last Admin: 06/28/17 13:00 Dose: Not Given Heparin Sodium/Sodium Chloride (Heparin 74347 Units/250ml 1/2 Normal Saline) 25 ,000 units in 250 mls @ 7.947 mls/hr IV .Q24H PRN; Protocol; 12 UNITS/KG/HR PRN Reason: TITRATE PER PROTOCOL Last Admin: 07/03/17 01:42 Dose: 12 units/kg/hr, 7.947 mls/hr Propofol (Diprivan) 1,000 mg in 100 mls @ 1.926 mls/hr IV .Q24H PRN; Protocol; 5 MCG/KG/MIN PRN Reason: TITRATE PER MD ORDER Last Titration: 07/04/17 09:00 Dose: 12 mcg/kg/min, 4.623 mls/hr Amiodarone HCl 900 mg/ (Dextrose) 500 mls @ 16.66 mls/hr IV .Q24H [facility]; 0.5 MG/ MIN PRN Reason: Protocol Last Admin: 07/04/17 07:30 Dose: 16.66 mls/hr Potassium Chloride (Potassium Chloride 20 Meq/100 Ml) 20 meq in 100 mls @ 50 mls/hr IVPB Q2 [facility] Stop: 07/04/17 13:59 Last Admin: 07/04/17 12:50 Dose: 50 mls/hr Insulin Human Regular (Novolin R) 0 unit SC Q6 [facility] PRN Reason: Protocol Last Admin: 07/04/17 12:20 Dose: Not Given Lorazepam (Ativan) 2 mg IVP Q6H PRN PRN Reason: Anxiety - Labs Labs: 07/04/17 06:25 07/04/17 06:25 PT 14.1 SECONDS (9.7-12.2) H 07/02/17 07:13 INR 1.3 07/02/17 07:13 APTT 49 SECONDS (21-34) H 07/03/17 06:20
[2017-07-04 15:03] LABS: BASO # 0.1 K/uL (0.0-0.2); BASO % 0.6 % (0.0-2.0); EOS # 0.4 K/uL (0.0-0.7); EOS % 1.6 % (0.0-4.0); HEMATOCRIT 23.4 % (34.0-47.0); LYMPH # 4.2 K/uL (1.0-4.3); LYMPH % 16.3 % (20.0-40.0); MEAN CELL VOLUME 86.1 fL (81.0-99.0); MEAN CORPUSCULAR HEMOGLOBIN 26.2 pg (27.0-31.0); MEAN CORPUSCULAR HGB CONC 30.5 g/dL (33.0-37.0); MEAN PLATELET VOLUME 10.5 fL (7.2-11.7); MONO # 0.9 K/uL (0.0-0.8); MONO % 3.6 % (0.0-10.0); RED CELL DISTRIBUTION WIDTH 18.3 % (11.5-14.5); WHITE BLOOD COUNT 25.9 K/uL (4.8-10.8)
--- NOTE | 2017-07-04 16:26 | CP.CCUPN ---
<Eb Iverson - Last Filed: 07/04/17 16:39> CCU Subjective - Physician Review Subjective (Free Text): Patient was seen and examined at bedside in the morning. Patient is sedated and intubated, review of systems was not obtainable. 07/04/17 16:14 CCU Objective - Vital Signs / Intake & Output Vital Signs (Last 4 hours): Vital Signs Pulse Resp BP Pulse Ox 07/04/17 15:00 129 H 21 100 07/04/17 14:36 129 H 27 H 129/65 100 07/04/17 14:00 81 21 100 07/04/17 13:36 79 20 128/43 L 100 07/04/17 13:00 75 19 100 07/04/17 12:36 74 15 123/45 L 100 Intake and Output (Last 8hrs): Intake & Output 07/04/17 07/04/17 07/04/17 06:59 14:59 22:59 Intake Total 453.6 678.0 93.2 Output Total 295 265 40 Balance 158.6 413.0 53.2 Weight 58 lb 14.4 oz Intake: IV 0 42 Intake, IV Amount 183.6 468.0 21.2 Right Antecubital 149.4 132.8 16.6 Right Forearm 34.2 31.4 4.6 Right Hand 300 right forearm 3.8 Tube Feeding 270 210 30 Output: Urine 295 265 40 Urethral (Neff) 295 265 40 Other: # Bowel Movements 1 0 - Physical Exam Head: Positive for: Atraumatic, Normocephalic Extroacular Muscles: Positive for: EOMI Mouth: Positive for: Moist Mucous Membranes Respiratory/Chest: Positive for: Clear to Auscultation. Negative for: Wheezes, Rales, Rhonchi Cardiovascular: Positive for: Normal S1, S2, Irregular Rhythm, Tachycardic. Negative for: Bradycardic Abdomen: Positive for: Distention, Normal Bowel Sounds. Negative for: Tenderness Upper Extremity: Positive for: Normal Inspection. Negative for: Edema Lower Extremity: Positive for: Normal Inspection. Negative for: Edema Skin: Positive for: Warm, Dry, Normal Color Psychiatric: Positive for: Alert, Lethargic - Medications Active Medications: Active Medications Generic Name Dose Route Start Last Admin Trade Name Freq PRN Reason Stop Dose Admin Albuterol/Ipratropium 3 ml 07/04/17 08:00 07/04/17 13:51 Duoneb 3 Mg/0.5 Mg (3 Ml) Ud INH Not Given RQ6 ASIM Famotidine 20 mg 06/26/17 10:00 07/04/17 09:36 Pepcid IVP 20 mg DAILY ASIM Administration Piperacillin Sod/Tazobactam Sod 2.25 gm in 50 mls @ 100 mls/hr 06/26/17 09:00 07/04/17 08:59 Zosyn 2.25 Gm Iv Premix IVPB 100 mls/hr Q8H ASIM Administration Vancomycin/Sodium Chloride 1 gm in 200 mls @ 133.333 mls/hr 06/27/17 12:00 13:00 Vancocin IVPB Not Given Q24H ASIM Heparin Sodium/Sodium Chloride 25,000 units in 250 mls @ 7.947 mls/hr 08:36 07/03/17 01:42 Heparin 06554 Units/250ml 1/2 Normal Saline IV 12 units/kg/hr .Q24H PRN 7.947 mls/hr TITRATE PER PROTOCOL Administration Protocol 12 UNITS/KG/HR Propofol 1,000 mg in 100 mls @ 1.926 mls/hr 07/03/17 09:24 07/04/17 15:00 Diprivan IV 15 mcg/kg/min .Q24H PRN 5.779 mls/hr TITRATE PER MD ORDER Titration Protocol 5 MCG/KG/MIN Amiodarone HCl 900 mg/ 500 mls @ 16.66 mls/hr 07/03/17 16:00 07/04/17 07:30 Dextrose IV 16.66 mls/hr .Q24H ASIM Administration Protocol 0.5 MG/MIN Insulin Human Regular 0 unit 06/27/17 13:02 07/04/17 12:20 Novolin R SC Not Given Q6 [facility] Protocol Lorazepam 2 mg 07/03/17 09:24 07/04/17 14:43 Ativan IVP 2 mg Q6H PRN Administration Anxiety - Patient Studies Lab Studies: Microbiology Studies 07/03/17 09:30 Blood Culture - Preliminary Blood-Venous NO GROWTH AFTER 24 HOURS 07/03/17 Unknown Urine Culture - Final Urine,Catheterized Yeast Species 08/27/17 Unknown Gram Stain - Final Trachasp Lab Studies 07/04/17 07/04/17 07/04/17 Range/Units 14:59 11:38 06:25 WBC 25.9 H (4.8-10.8) K/uL RBC 2.71 L (3.80-5.20) Mil/uL Hgb 7.1 L (11.0-16.0) g/dL Hct 23.4 L (34.0-47.0) % MCV 86.1 (81.0-99.0) fL MCH 26.2 L (27.0-31.0) pg MCHC 30.5 L (33.0-37.0) g/dL RDW 18.3 H (11.5-14.5) % Plt Count 163 (130-400) K/uL MPV 10.5 (7.2-11.7) fL Neut % (Auto) 77.9 H (50.0-75.0) % Lymph % (Auto) 16.3 L (20.0-40.0) % [place] % (Auto) 3.6 (0.0-10.0) % Eos % (Auto) 1.6 (0.0-4.0) % Baso % (Auto) 0.6 (0.0-2.0) % Neut # 20.2 H (1.8-7.0) K/uL Lymph # 4.2 (1.0-4.3) K/uL [place] # 0.9 H (0.0-0.8) K/uL Eos # 0.4 (0.0-0.7) K/uL Baso # 0.1 (0.0-0.2) K/uL Neutrophils % (Manual) (50-75) % Lymphocytes % (Manual) (20-40) % Monocytes % (Manual) (0-10) % Platelet Estimate (NORMAL) Hypochromasia (manual) Poikilocytosis (manual Basophilic Stippling Anisocytosis (manual) Puncture Site pCO2 (35-45) mm/Hg pO2 (80-100) mm/Hg HCO3 (21-28) mmol/L ABG pH (7.35-7.45) ABG Total CO2 (22-28) mmol/L ABG O2 Saturation (95-98) % ABG Base Excess (-2.0-3.0) mmol/L ABG Hemoglobin (11.7-17.4) g/dL ABG Carboxyhemoglobin (0.5-1.5) % POC ABG HHb (Measured) (0.0-5.0) % ABG Methemoglobin (0.0-3.0) % Jasvir Test A-a O2 Difference mm/Hg Respiratory Index Hgb O2 Saturation (95.0-98.0) % Vent Mode Mechanical Rate FiO2 % Tidal Volume PEEP Sodium 148 (132-148) mmol/L Potassium 2.8 L (3.6-5.2) mmol/L Chloride 109 H (98-107) mmol/L Carbon Dioxide 28 (22-30) mmol/L Anion Gap 14 (10-20) BUN 43 H (7-17) mg/dL Creatinine 2.1 H (0.7-1.2) MG/DL Est GFR ( Amer) 28 Est GFR (Non-Af Amer) 23 POC Glucose (mg/dL) 170 H (65-110) mg/dL Random Glucose 189 H (65-105) mg/dL Calcium 8.2 L (8.6-10.4) mg/dl Phosphorus 2.5 (2.5-4.5) mg/dL Magnesium 1.7 (1.6-2.3) mg/dL Total Bilirubin 0.8 (0.2-1.3) mg/dL AST 67 H (14-36) U/L ALT 54 H (9-52) U/L Alkaline Phosphatase 100 (38-126) U/L Total Protein 5.4 L (6.3-8.3) g/dL Albumin 2.7 L D (3.5-5.0) g/dL Globulin 2.6 (2.2-3.9) gm/dL Albumin/Globulin Ratio 1.0 (1.0-2.1) Hepatitis A IgM Ab (NEGATIVE) Hep Bs Antigen (NEGATIVE) Hep B Core IgM Ab (NEGATIVE) Hepatitis C Antibody (NEGATIVE) 07/04/17 07/04/17 07/04/17 Range/Units 06:25 06:19 04:40 WBC 24.5 H (4.8-10.8) K/uL RBC 2.68 L (3.80-5.20) Mil/uL Hgb 7.0 L (11.0-16.0) g/dL Hct 22.9 L (34.0-47.0) % MCV 85.3 (81.0-99.0) fL MCH 26.1 L (27.0-31.0) pg MCHC 30.6 L (33.0-37.0) g/dL RDW 18.4 H (11.5-14.5) % Plt Count 168 (130-400) K/uL MPV 11.3 (7.2-11.7) fL Neut % (Auto) 85.3 H (50.0-75.0) % Lymph % (Auto) 9.7 L (20.0-40.0) % [place] % (Auto) 2.8 (0.0-10.0) % Eos % (Auto) 1.4 (0.0-4.0) % Baso % (Auto) 0.8 (0.0-2.0) % Neut # 20.9 H (1.8-7.0) K/uL Lymph # 2.4 (1.0-4.3) K/uL [place] # 0.7 (0.0-0.8) K/uL Eos # 0.3 (0.0-0.7) K/uL Baso # 0.2 (0.0-0.2) K/uL Neutrophils % (Manual) 88 H (50-75) % Lymphocytes % (Manual) 9 L (20-40) % Monocytes % (Manual) 3 (0-10) % Platelet Estimate Normal (NORMAL) Hypochromasia (manual) Slight Poikilocytosis (manual Slight Basophilic Stippling Slight Anisocytosis (manual) Slight Puncture Site Rr pCO2 38 (35-45) mm/Hg pO2 119 H (80-100) mm/Hg HCO3 29.6 H (21-28) mmol/L ABG pH 7.50 H (7.35-7.45) ABG Total CO2 30.8 H (22-28) mmol/L ABG O2 Saturation 100.0 H (95-98) % ABG Base Excess 6.0 H (-2.0-3.0) mmol/L ABG Hemoglobin 7.8 L (11.7-17.4) g/dL ABG Carboxyhemoglobin 2.1 H (0.5-1.5) % POC ABG HHb (Measured) 0.0 (0.0-5.0) % ABG Methemoglobin 1.3 (0.0-3.0) % Jasvir Test Pos A-a O2 Difference 333.0 mm/Hg Respiratory Index 2.8 Hgb O2 Saturation 96.6 (95.0-98.0) % Vent Mode Prvc Mechanical Rate 10 FiO2 70.0 % Tidal Volume 400 PEEP 5 Sodium (132-148) mmol/L Potassium (3.6-5.2) mmol/L Chloride (98-107) mmol/L Carbon Dioxide (22-30) mmol/L Anion Gap (10-20) BUN (7-17) mg/dL Creatinine (0.7-1.2) MG/DL Est GFR ( Amer) Est GFR (Non-Af Amer) POC Glucose (mg/dL) 249 H (65-110) mg/dL Random Glucose (65-105) mg/dL Calcium (8.6-10.4) mg/dl Phosphorus (2.5-4.5) mg/dL Magnesium (1.6-2.3) mg/dL Total Bilirubin (0.2-1.3) mg/dL AST (14-36) U/L ALT (9-52) U/L Alkaline Phosphatase (38-126) U/L Total Protein (6.3-8.3) g/dL Albumin (3.5-5.0) g/dL Globulin (2.2-3.9) gm/dL Albumin/Globulin Ratio (1.0-2.1) Hepatitis A IgM Ab (NEGATIVE) Hep Bs Antigen (NEGATIVE) Hep B Core IgM Ab (NEGATIVE) Hepatitis C Antibody (NEGATIVE) 07/03/17 07/03/17 07/03/17 Range/Units 23:49 22:10 17:28 WBC (4.8-10.8) K/uL RBC (3.80-5.20) Mil/uL Hgb (11.0-16.0) g/dL Hct (34.0-47.0) % MCV (81.0-99.0) fL MCH (27.0-31.0) pg MCHC (33.0-37.0) g/dL RDW (11.5-14.5) % Plt Count (130-400) K/uL MPV (7.2-11.7) fL Neut % (Auto) (50.0-75.0) % Lymph % (Auto) (20.0-40.0) % [place] % (Auto) (0.0-10.0) % Eos % (Auto) (0.0-4.0) % Baso % (Auto) (0.0-2.0) % Neut # (1.8-7.0) K/uL Lymph # (1.0-4.3) K/uL [place] # (0.0-0.8) K/uL Eos # (0.0-0.7) K/uL Baso # (0.0-0.2) K/uL Neutrophils % (Manual) (50-75) % Lymphocytes % (Manual) (20-40) % Monocytes % (Manual) (0-10) % Platelet Estimate (NORMAL) Hypochromasia (manual) Poikilocytosis (manual Basophilic Stippling Anisocytosis (manual) Puncture Site Rra pCO2 37 (35-45) mm/Hg pO2 130 H (80-100) mm/Hg HCO3 33.5 H (21-28) mmol/L ABG pH 7.57 H (7.35-7.45) ABG Total CO2 35.0 H (22-28) mmol/L ABG O2 Saturation 99.7 H (95-98) % ABG Base Excess 10.9 H (-2.0-3.0) mmol/L ABG Hemoglobin 7.1 L (11.7-17.4) g/dL ABG Carboxyhemoglobin 1.7 H (0.5-1.5) % POC ABG HHb (Measured) 0.3 (0.0-5.0) % ABG Methemoglobin 1.6 (0.0-3.0) % Jasvir Test Pos A-a O2 Difference 323.0 mm/Hg Respiratory Index 2.5 Hgb O2 Saturation 96.4 (95.0-98.0) % Vent Mode A/c Mechanical Rate 14 FiO2 70.0 % Tidal Volume 400 PEEP 5 Sodium (132-148) mmol/L Potassium (3.6-5.2) mmol/L Chloride (98-107) mmol/L Carbon Dioxide (22-30) mmol/L Anion Gap (10-20) BUN (7-17) mg/dL Creatinine (0.7-1.2) MG/DL Est GFR ( Amer) Est GFR (Non-Af Amer) POC Glucose (mg/dL) 116 H 202 H (65-110) mg/dL Random Glucose (65-105) mg/dL Calcium (8.6-10.4) mg/dl Phosphorus (2.5-4.5) mg/dL Magnesium (1.6-2.3) mg/dL Total Bilirubin (0.2-1.3) mg/dL AST (14-36) U/L ALT (9-52) U/L Alkaline Phosphatase (38-126) U/L Total Protein (6.3-8.3) g/dL Albumin (3.5-5.0) g/dL Globulin (2.2-3.9) gm/dL Albumin/Globulin Ratio (1.0-2.1) Hepatitis A IgM Ab (NEGATIVE) Hep Bs Antigen (NEGATIVE) Hep B Core IgM Ab (NEGATIVE) Hepatitis C Antibody (NEGATIVE) 07/03/17 Range/Units 10:02 WBC (4.8-10.8) K/uL RBC (3.80-5.20) Mil/uL Hgb (11.0-16.0) g/dL Hct (34.0-47.0) % MCV (81.0-99.0) fL MCH (27.0-31.0) pg MCHC (33.0-37.0) g/dL RDW (11.5-14.5) % Plt Count (130-400) K/uL MPV (7.2-11.7) fL Neut % (Auto) (50.0-75.0) % Lymph % (Auto) (20.0-40.0) % [place] % (Auto) (0.0-10.0) % Eos % (Auto) (0.0-4.0) % Baso % (Auto) (0.0-2.0) % Neut # (1.8-7.0) K/uL Lymph # (1.0-4.3) K/uL [place] # (0.0-0.8) K/uL Eos # (0.0-0.7) K/uL Baso # (0.0-0.2) K/uL Neutrophils % (Manual) (50-75) % Lymphocytes % (Manual) (20-40) % Monocytes % (Manual) (0-10) % Platelet Estimate (NORMAL) Hypochromasia (manual) Poikilocytosis (manual Basophilic Stippling Anisocytosis (manual) Puncture Site pCO2 (35-45) mm/Hg pO2 (80-100) mm/Hg HCO3 (21-28) mmol/L ABG pH (7.35-7.45) ABG Total CO2 (22-28) mmol/L ABG O2 Saturation (95-98) % ABG Base Excess (-2.0-3.0) mmol/L ABG Hemoglobin (11.7-17.4) g/dL ABG Carboxyhemoglobin (0.5-1.5) % POC ABG HHb (Measured) (0.0-5.0) % ABG Methemoglobin (0.0-3.0) % Jasvir Test A-a O2 Difference mm/Hg Respiratory Index Hgb O2 Saturation (95.0-98.0) % Vent Mode Mechanical Rate FiO2 % Tidal Volume PEEP Sodium (132-148) mmol/L Potassium (3.6-5.2) mmol/L Chloride (98-107) mmol/L Carbon Dioxide (22-30) mmol/L Anion Gap (10-20) BUN (7-17) mg/dL Creatinine (0.7-1.2) MG/DL Est GFR ( Amer) Est GFR (Non-Af Amer) POC Glucose (mg/dL) (65-110) mg/dL Random Glucose (65-105) mg/dL Calcium (8.6-10.4) mg/dl Phosphorus (2.5-4.5) mg/dL Magnesium (1.6-2.3) mg/dL Total Bilirubin (0.2-1.3) mg/dL AST (14-36) U/L ALT (9-52) U/L Alkaline Phosphatase (38-126) U/L Total Protein (6.3-8.3) g/dL Albumin (3.5-5.0) g/dL Globulin (2.2-3.9) gm/dL Albumin/Globulin Ratio (1.0-2.1) Hepatitis A IgM Ab Negative (NEGATIVE) Hep Bs Antigen Negative (NEGATIVE) Hep B Core IgM Ab Negative (NEGATIVE) Hepatitis C Antibody Negative (NEGATIVE) Laboratory Results - last 24 hr 07/03/17 07/03/17 07/03/17 10:02 17:28 22:10 WBC RBC Hgb Hct MCV MCH MCHC RDW Plt Count MPV Neut % (Auto) Lymph % (Auto) [place] % (Auto) Eos % (Auto) Baso % (Auto) Neut # Lymph # [place] # Eos # Baso # Neutrophils % (Manual) Lymphocytes % (Manual) Monocytes % (Manual) Platelet Estimate Hypochromasia (manual) Poikilocytosis (manual Basophilic Stippling Anisocytosis (manual) Puncture Site Rra pCO2 37 pO2 130 H HCO3 33.5 H ABG pH 7.57 H ABG Total CO2 35.0 H ABG O2 Saturation 99.7 H ABG Base Excess 10.9 H ABG Hemoglobin 7.1 L ABG Carboxyhemoglobin 1.7 H POC ABG HHb (Measured) 0.3 ABG Methemoglobin 1.6 Jasvir Test Pos A-a O2 Difference 323.0 Respiratory Index 2.5 Hgb O2 Saturation 96.4 Vent Mode A/c Mechanical Rate 14 FiO2 70.0 Tidal Volume 400 PEEP 5 Sodium Potassium Chloride Carbon Dioxide Anion Gap BUN Creatinine Est GFR ( Amer) Est GFR (Non-Af Amer) POC Glucose (mg/dL) 202 H Random Glucose Calcium Phosphorus Magnesium Total Bilirubin AST ALT Alkaline Phosphatase Total Protein Albumin Globulin Albumin/Globulin Ratio Hepatitis A IgM Ab Negative Hep Bs Antigen Negative Hep B Core IgM Ab Negative Hepatitis C Antibody Negative 07/03/17 07/04/17 07/04/17 23:49 04:40 06:19 WBC RBC Hgb Hct MCV MCH MCHC RDW Plt Count MPV Neut % (Auto) Lymph % (Auto) [place] % (Auto) Eos % (Auto) Baso % (Auto) Neut # Lymph # [place] # Eos # Baso # Neutrophils % (Manual) Lymphocytes % (Manual) Monocytes % (Manual) Platelet Estimate Hypochromasia (manual) Poikilocytosis (manual Basophilic Stippling Anisocytosis (manual) Puncture Site Rr pCO2 38 pO2 119 H HCO3 29.6 H ABG pH 7.50 H ABG Total CO2 30.8 H ABG O2 Saturation 100.0 H ABG Base Excess 6.0 H ABG Hemoglobin 7.8 L ABG Carboxyhemoglobin 2.1 H POC ABG HHb (Measured) 0.0 ABG Methemoglobin 1.3 Jasvir Test Pos A-a O2 Difference 333.0 Respiratory Index 2.8 Hgb O2 Saturation 96.6 Vent Mode Prvc Mechanical Rate 10 FiO2 70.0 Tidal Volume 400 PEEP 5 Sodium Potassium Chloride Carbon Dioxide Anion Gap BUN Creatinine Est GFR ( Amer) Est GFR (Non-Af Amer) POC Glucose (mg/dL) 116 H 249 H Random Glucose Calcium Phosphorus Magnesium Total Bilirubin AST ALT Alkaline Phosphatase Total Protein Albumin Globulin Albumin/Globulin Ratio Hepatitis A IgM Ab Hep Bs Antigen Hep B Core IgM Ab Hepatitis C Antibody 07/04/17 07/04/17 07/04/17 06:25 06:25 11:38 WBC 24.5 H RBC 2.68 L Hgb 7.0 L Hct 22.9 L MCV 85.3 MCH 26.1 L MCHC 30.6 L RDW 18.4 H Plt Count 168 MPV 11.3 Neut % (Auto) 85.3 H Lymph % (Auto) 9.7 L [place] % (Auto) 2.8 Eos % (Auto) 1.4 Baso % (Auto) 0.8 Neut # 20.9 H Lymph # 2.4 [place] # 0.7 Eos # 0.3 Baso # 0.2 Neutrophils % (Manual) 88 H Lymphocytes % (Manual) 9 L Monocytes % (Manual) 3 Platelet Estimate Normal Hypochromasia (manual) Slight Poikilocytosis (manual Slight Basophilic Stippling Slight Anisocytosis (manual) Slight Puncture Site pCO2 pO2 HCO3 ABG pH ABG Total CO2 ABG O2 Saturation ABG Base Excess ABG Hemoglobin ABG Carboxyhemoglobin POC ABG HHb (Measured) ABG Methemoglobin Jasvir Test A-a O2 Difference Respiratory Index Hgb O2 Saturation Vent Mode Mechanical Rate FiO2 Tidal Volume PEEP Sodium 148 Potassium 2.8 L Chloride 109 H Carbon Dioxide 28 Anion Gap 14 BUN 43 H Creatinine 2.1 H Est GFR ( Amer) 28 Est GFR (Non-Af Amer) 23 POC Glucose (mg/dL) 170 H Random Glucose 189 H Calcium 8.2 L Phosphorus 2.5 Magnesium 1.7 Total Bilirubin 0.8 AST 67 H ALT 54 H Alkaline Phosphatase 100 Total Protein 5.4 L Albumin 2.7 L D Globulin 2.6 Albumin/Globulin Ratio 1.0 Hepatitis A IgM Ab Hep Bs Antigen Hep B Core IgM Ab Hepatitis C Antibody 07/04/17 14:59 WBC 25.9 H RBC 2.71 L Hgb 7.1 L Hct 23.4 L MCV 86.1 MCH 26.2 L MCHC 30.5 L RDW 18.3 H Plt Count 163 MPV 10.5 Neut % (Auto) 77.9 H Lymph % (Auto) 16.3 L [place] % (Auto) 3.6 Eos % (Auto) 1.6 Baso % (Auto) 0.6 Neut # 20.2 H Lymph # 4.2 [place] # 0.9 H Eos # 0.4 Baso # 0.1 Neutrophils % (Manual) Lymphocytes % (Manual) Monocytes % (Manual) Platelet Estimate Hypochromasia (manual) Poikilocytosis (manual Basophilic Stippling Anisocytosis (manual) Puncture Site pCO2 pO2 HCO3 ABG pH ABG Total CO2 ABG O2 Saturation ABG Base Excess ABG Hemoglobin ABG Carboxyhemoglobin POC ABG HHb (Measured) ABG Methemoglobin Jasvir Test A-a O2 Difference Respiratory Index Hgb O2 Saturation Vent Mode Mechanical Rate FiO2 Tidal Volume PEEP Sodium Potassium Chloride Carbon Dioxide Anion Gap BUN Creatinine Est GFR ( Amer) Est GFR (Non-Af Amer) POC Glucose (mg/dL) Random Glucose Calcium Phosphorus Magnesium Total Bilirubin AST ALT Alkaline Phosphatase Total Protein Albumin Globulin Albumin/Globulin Ratio Hepatitis A IgM Ab Hep Bs Antigen Hep B Core IgM Ab Hepatitis C Antibody Fingerstick Blood Sugar Results: 188 Review of Systems - Review of Systems Systems not reviewed;Unavailable: Intubated Critical Care Progress Note - Vent Settings TIDAL VOLUME:: 400 RESP RATE:: 10 FIO2:: 70 PEEP:: 5 Assessment/Plan - Assessment and Plan (Free Text) Assessment: 77 year old female with history of HTN, DM, CAD, presented initially c/o chest pain. Patient had syncopal episode when BLS arrived and became diaphoretic and bradycardic. ALS arrived, patient had episode of vomiting, intubated for airway protection. Patient was severely anemic on presentation (Hgb 6.5), s/p prbc, 8.9. Patient had EDG 06/28/17, showed small hiatal hernia and acute gastritis. Patient was placed on CPAP trial and then extubated on 06/29/17. Patient c/o nausea and SOB post-extubation. Patient placed on BiPAP prn. Overnight, patient went into a-fib, started on cardizem drip and heparin drip. Patient converted to normal sinus rhythm, and cardizem drip was being tapered. In the afternoon, patient in afib, started on metoproplol, cardizem drip continued (06/30/17). Patient started on metoprolol and was given one dose of digoxin for afib, 07/01/17. Neuro: sedated - propofol 5 mcg/kg/min iv Pulm: - Patient was extubated on 06/29/17, on BiPAP, then reintubated on 07/03/17 - Acute respiratory failure with hypoxemia secondary to pulmonary edema - CXR: showing worsening infiltrative changes, likely pneumonia CV: NSTEMI - Troponin: 0.25, 3.11, 4.03, 2.84 (trending down) - Cardiology consulted: Dr. Arshad - As per Dr. Arshad, cannot do cardiac cath due to elevated Cr. - Off pressors - NS@100ml/hr - Echo: EF 35%; moderately impaired LV systolic function; mild hypokinesis of posterior wall; grade-II pseudonormal diastolic dysfunction; elevated LA pressure; mod dilated LA; Trace AR; Aortic valve mildly sclerotic. - A-fib, started on cardizem drip and heparin drip. - Started metoprolol 5mg IV Q6 - started amiodarone 0.5mg/min iv Endo: no acute issues - ISS GI: anemic - Hgb 6.5 on admission, transfused 2 units PRBC - GI consulted: Dr. Mendoza, jeanine appreciated - EGD (06/28/17): small hiatal hernia, acute gastritis (biopsied) - EDG and colonoscopy in 02/2017, 5mm polyp resected; congested mucosa in descending colon, non-bleeding external, internal hemorrhoids. - Abd/Pelvic U/S: echogenic liver maybe in setting of hepatic parenchymal disease or fatty infiltration; b/l echogenic renal parenchyma maybe in setting of medical renal disease; 2.3x2.0x2.2cm right renal cyst - Monitor H/H Heme: anemic, s/p PRBC transfusionx2 - Hgb 6.5 on admission, transfused 2 units PRBC - Hgb 8.1 (06/28/17) - Monitor H/H Renal: - Nephrology consulted- Dr. 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 - Hypokalemia: gave KCl ID: Leokocytosis - Continue Zosyn - Hold Vancomycin-->vanco trough 20.1 - UA: 1+ protein, 3+ blood, 15 WBC, 60 RBC - Urine culture 07/03 growing yeast species - sputum culture 07/03 pending, F/U - blood culture 07/03 no growth up to date - Infectious disease consulted, Dr Reese Prophylaxis: - DVT: SCDs; anticoagulation C/I- anemic - GI: Pepcid daily - Swallow eval: failed on 06/30/17 <Wiliam Bender - Last Filed: 07/04/17 18:06> CCU Objective - Vital Signs / Intake & Output Vital Signs (Last 4 hours): Vital Signs Temp Pulse Resp BP Pulse Ox 07/04/17 16:00 99.2 F 86 22 100 07/04/17 15:38 130 H 22 111/54 L 100 07/04/17 15:00 129 H 21 100 07/04/17 14:36 129 H 27 H 129/65 100 Intake and Output (Last 8hrs): Intake & Output 07/04/17 07/04/17 07/04/17 06:59 14:59 22:59 Intake Total 453.6 678.0 145.6 Output Total 295 265 70 Balance 158.6 413.0 75.6 Weight 58 lb 14.4 oz Intake: IV 0 42 Intake, IV Amount 183.6 468.0 43.6 Right Antecubital 149.4 132.8 33.2 Right Forearm 34.2 31.4 10.4 Right Hand 300 right forearm 3.8 Tube Feeding 270 210 60 Output: Urine 295 265 70 Urethral (Neff) 295 265 70 Other: # Bowel Movements 1 0 - Medications Active Medications: Active Medications Generic Name Dose Route Start Last Admin Trade Name Freq PRN Reason Stop Dose Admin Albuterol/Ipratropium 3 ml 07/04/17 08:00 07/04/17 13:51 Duoneb 3 Mg/0.5 Mg (3 Ml) Ud INH Not Given RQ6 ASIM Famotidine 20 mg 06/26/17 10:00 07/04/17 09:36 Pepcid IVP 20 mg DAILY ASIM Administration Piperacillin Sod/Tazobactam Sod 2.25 gm in 50 mls @ 100 mls/hr 06/26/17 09:00 07/04/17 16:29 Zosyn 2.25 Gm Iv Premix IVPB 100 mls/hr Q8H ASIM Administration Vancomycin/Sodium Chloride 1 gm in 200 mls @ 133.333 mls/hr 06/27/17 12:00 13:00 Vancocin IVPB Not Given Q24H ASIM Heparin Sodium/Sodium Chloride 25,000 units in 250 mls @ 7.947 mls/hr 08:36 07/03/17 01:42 Heparin 72276 Units/250ml 1/2 Normal Saline IV 12 units/kg/hr .Q24H PRN 7.947 mls/hr TITRATE PER PROTOCOL Administration Protocol 12 UNITS/KG/HR Propofol 1,000 mg in 100 mls @ 1.926 mls/hr 07/03/17 09:24 07/04/17 15:00 Diprivan IV 15 mcg/kg/min .Q24H PRN 5.779 mls/hr TITRATE PER MD ORDER Titration Protocol 5 MCG/KG/MIN Amiodarone HCl 900 mg/ 500 mls @ 16.66 mls/hr 07/03/17 16:00 07/04/17 16:00 Dextrose IV Not Given .Q24H ASIM Protocol 0.5 MG/MIN Insulin Human Regular 0 unit 06/27/17 13:02 07/04/17 12:20 Novolin R SC Not Given Q6 [facility] Protocol Lorazepam 2 mg 07/03/17 09:24 07/04/17 14:43 Ativan IVP 2 mg Q6H PRN Administration Anxiety - Patient Studies Lab Studies: Microbiology Studies 07/03/17 09:30 Blood Culture - Preliminary Blood-Venous NO GROWTH AFTER 24 HOURS 07/03/17 Unknown Urine Culture - Final Urine,Catheterized Yeast Species Lab Studies 07/04/17 07/04/17 07/04/17 Range/Units 17:46 14:59 11:38 WBC 25.9 H (4.8-10.8) K/uL RBC 2.71 L (3.80-5.20) Mil/uL Hgb 7.1 L (11.0-16.0) g/dL Hct 23.4 L (34.0-47.0) % MCV 86.1 (81.0-99.0) fL MCH 26.2 L (27.0-31.0) pg MCHC 30.5 L (33.0-37.0) g/dL RDW 18.3 H (11.5-14.5) % Plt Count 163 (130-400) K/uL MPV 10.5 (7.2-11.7) fL Neut % (Auto) 77.9 H (50.0-75.0) % Lymph % (Auto) 16.3 L (20.0-40.0) % [place] % (Auto) 3.6 (0.0-10.0) % Eos % (Auto) 1.6 (0.0-4.0) % Baso % (Auto) 0.6 (0.0-2.0) % Neut # 20.2 H (1.8-7.0) K/uL Lymph # 4.2 (1.0-4.3) K/uL [place] # 0.9 H (0.0-0.8) K/uL Eos # 0.4 (0.0-0.7) K/uL Baso # 0.1 (0.0-0.2) K/uL Neutrophils % (Manual) (50-75) % Lymphocytes % (Manual) (20-40) % Monocytes % (Manual) (0-10) % Platelet Estimate (NORMAL) Hypochromasia (manual) Poikilocytosis (manual Basophilic Stippling Anisocytosis (manual) Puncture Site pCO2 (35-45) mm/Hg pO2 (80-100) mm/Hg HCO3 (21-28) mmol/L ABG pH (7.35-7.45) ABG Total CO2 (22-28) mmol/L ABG O2 Saturation (95-98) % ABG Base Excess (-2.0-3.0) mmol/L ABG Hemoglobin (11.7-17.4) g/dL ABG Carboxyhemoglobin (0.5-1.5) % POC ABG HHb (Measured) (0.0-5.0) % ABG Methemoglobin (0.0-3.0) % Jasvir Test A-a O2 Difference mm/Hg Respiratory Index Hgb O2 Saturation (95.0-98.0) % Vent Mode Mechanical Rate FiO2 % Tidal Volume PEEP Sodium (132-148) mmol/L Potassium (3.6-5.2) mmol/L Chloride (98-107) mmol/L Carbon Dioxide (22-30) mmol/L Anion Gap (10-20) BUN (7-17) mg/dL Creatinine (0.7-1.2) MG/DL Est GFR ( Amer) Est GFR (Non-Af Amer) POC Glucose (mg/dL) 236 H 170 H (65-110) mg/dL Random Glucose (65-105) mg/dL Calcium (8.6-10.4) mg/dl Phosphorus (2.5-4.5) mg/dL Magnesium (1.6-2.3) mg/dL Total Bilirubin (0.2-1.3) mg/dL AST (14-36) U/L ALT (9-52) U/L Alkaline Phosphatase (38-126) U/L Total Protein (6.3-8.3) g/dL Albumin (3.5-5.0) g/dL Globulin (2.2-3.9) gm/dL Albumin/Globulin Ratio (1.0-2.1) Hepatitis A IgM Ab (NEGATIVE) Hep Bs Antigen (NEGATIVE) Hep B Core IgM Ab (NEGATIVE) Hepatitis C Antibody (NEGATIVE) 07/04/17 07/04/17 07/04/17 Range/Units 06:25 06:25 06:19 WBC 24.5 H (4.8-10.8) K/uL RBC 2.68 L (3.80-5.20) Mil/uL Hgb 7.0 L (11.0-16.0) g/dL Hct 22.9 L (34.0-47.0) % MCV 85.3 (81.0-99.0) fL MCH 26.1 L (27.0-31.0) pg MCHC 30.6 L (33.0-37.0) g/dL RDW 18.4 H (11.5-14.5) % Plt Count 168 (130-400) K/uL MPV 11.3 (7.2-11.7) fL Neut % (Auto) 85.3 H (50.0-75.0) % Lymph % (Auto) 9.7 L (20.0-40.0) % [place] % (Auto) 2.8 (0.0-10.0) % Eos % (Auto) 1.4 (0.0-4.0) % Baso % (Auto) 0.8 (0.0-2.0) % Neut # 20.9 H (1.8-7.0) K/uL Lymph # 2.4 (1.0-4.3) K/uL [place] # 0.7 (0.0-0.8) K/uL Eos # 0.3 (0.0-0.7) K/uL Baso # 0.2 (0.0-0.2) K/uL Neutrophils % (Manual) 88 H (50-75) % Lymphocytes % (Manual) 9 L (20-40) % Monocytes % (Manual) 3 (0-10) % Platelet Estimate Normal (NORMAL) Hypochromasia (manual) Slight Poikilocytosis (manual Slight Basophilic Stippling Slight Anisocytosis (manual) Slight Puncture Site pCO2 (35-45) mm/Hg pO2 (80-100) mm/Hg HCO3 (21-28) mmol/L ABG pH (7.35-7.45) ABG Total CO2 (22-28) mmol/L ABG O2 Saturation (95-98) % ABG Base Excess (-2.0-3.0) mmol/L ABG Hemoglobin (11.7-17.4) g/dL ABG Carboxyhemoglobin (0.5-1.5) % POC ABG HHb (Measured) (0.0-5.0) % ABG Methemoglobin (0.0-3.0) % Jasvir Test A-a O2 Difference mm/Hg Respiratory Index Hgb O2 Saturation (95.0-98.0) % Vent Mode Mechanical Rate FiO2 % Tidal Volume PEEP Sodium 148 (132-148) mmol/L Potassium 2.8 L (3.6-5.2) mmol/L Chloride 109 H (98-107) mmol/L Carbon Dioxide 28 (22-30) mmol/L Anion Gap 14 (10-20) BUN 43 H (7-17) mg/dL Creatinine 2.1 H (0.7-1.2) MG/DL Est GFR ( Amer) 28 Est GFR (Non-Af Amer) 23 POC Glucose (mg/dL) 249 H (65-110) mg/dL Random Glucose 189 H (65-105) mg/dL Calcium 8.2 L (8.6-10.4) mg/dl Phosphorus 2.5 (2.5-4.5) mg/dL Magnesium 1.7 (1.6-2.3) mg/dL Total Bilirubin 0.8 (0.2-1.3) mg/dL AST 67 H (14-36) U/L ALT 54 H (9-52) U/L Alkaline Phosphatase 100 (38-126) U/L Total Protein 5.4 L (6.3-8.3) g/dL Albumin 2.7 L D (3.5-5.0) g/dL Globulin 2.6 (2.2-3.9) gm/dL Albumin/Globulin Ratio 1.0 (1.0-2.1) Hepatitis A IgM Ab (NEGATIVE) Hep Bs Antigen (NEGATIVE) Hep B Core IgM Ab (NEGATIVE) Hepatitis C Antibody (NEGATIVE) 07/04/17 07/03/17 07/03/17 Range/Units 04:40 23:49 22:10 WBC (4.8-10.8) K/uL RBC (3.80-5.20) Mil/uL Hgb (11.0-16.0) g/dL Hct (34.0-47.0) % MCV (81.0-99.0) fL MCH (27.0-31.0) pg MCHC (33.0-37.0) g/dL RDW (11.5-14.5) % Plt Count (130-400) K/uL MPV (7.2-11.7) fL Neut % (Auto) (50.0-75.0) % Lymph % (Auto) (20.0-40.0) % [place] % (Auto) (0.0-10.0) % Eos % (Auto) (0.0-4.0) % Baso % (Auto) (0.0-2.0) % Neut # (1.8-7.0) K/uL Lymph # (1.0-4.3) K/uL [place] # (0.0-0.8) K/uL Eos # (0.0-0.7) K/uL Baso # (0.0-0.2) K/uL Neutrophils % (Manual) (50-75) % Lymphocytes % (Manual) (20-40) % Monocytes % (Manual) (0-10) % Platelet Estimate (NORMAL) Hypochromasia (manual) Poikilocytosis (manual Basophilic Stippling Anisocytosis (manual) Puncture Site Rr Rra pCO2 38 37 (35-45) mm/Hg pO2 119 H 130 H (80-100) mm/Hg HCO3 29.6 H 33.5 H (21-28) mmol/L ABG pH 7.50 H 7.57 H (7.35-7.45) ABG Total CO2 30.8 H 35.0 H (22-28) mmol/L ABG O2 Saturation 100.0 H 99.7 H (95-98) % ABG Base Excess 6.0 H 10.9 H (-2.0-3.0) mmol/L ABG Hemoglobin 7.8 L 7.1 L (11.7-17.4) g/dL ABG Carboxyhemoglobin 2.1 H 1.7 H (0.5-1.5) % POC ABG HHb (Measured) 0.0 0.3 (0.0-5.0) % ABG Methemoglobin 1.3 1.6 (0.0-3.0) % Jasvir Test Pos Pos A-a O2 Difference 333.0 323.0 mm/Hg Respiratory Index 2.8 2.5 Hgb O2 Saturation 96.6 96.4 (95.0-98.0) % Vent Mode Prvc A/c Mechanical Rate 10 14 FiO2 70.0 70.0 % Tidal Volume 400 400 PEEP 5 5 Sodium (132-148) mmol/L Potassium (3.6-5.2) mmol/L Chloride (98-107) mmol/L Carbon Dioxide (22-30) mmol/L Anion Gap (10-20) BUN (7-17) mg/dL Creatinine (0.7-1.2) MG/DL Est GFR ( Amer) Est GFR (Non-Af Amer) POC Glucose (mg/dL) 116 H (65-110) mg/dL Random Glucose (65-105) mg/dL Calcium (8.6-10.4) mg/dl Phosphorus (2.5-4.5) mg/dL Magnesium (1.6-2.3) mg/dL Total Bilirubin (0.2-1.3) mg/dL AST (14-36) U/L ALT (9-52) U/L Alkaline Phosphatase (38-126) U/L Total Protein (6.3-8.3) g/dL Albumin (3.5-5.0) g/dL Globulin (2.2-3.9) gm/dL Albumin/Globulin Ratio (1.0-2.1) Hepatitis A IgM Ab (NEGATIVE) Hep Bs Antigen (NEGATIVE) Hep B Core IgM Ab (NEGATIVE) Hepatitis C Antibody (NEGATIVE) 07/03/17 Range/Units 10:02 WBC (4.8-10.8) K/uL RBC (3.80-5.20) Mil/uL Hgb (11.0-16.0) g/dL Hct (34.0-47.0) % MCV (81.0-99.0) fL MCH (27.0-31.0) pg MCHC (33.0-37.0) g/dL RDW (11.5-14.5) % Plt Count (130-400) K/uL MPV (7.2-11.7) fL Neut % (Auto) (50.0-75.0) % Lymph % (Auto) (20.0-40.0) % [place] % (Auto) (0.0-10.0) % Eos % (Auto) (0.0-4.0) % Baso % (Auto) (0.0-2.0) % Neut # (1.8-7.0) K/uL Lymph # (1.0-4.3) K/uL [place] # (0.0-0.8) K/uL Eos # (0.0-0.7) K/uL Baso # (0.0-0.2) K/uL Neutrophils % (Manual) (50-75) % Lymphocytes % (Manual) (20-40) % Monocytes % (Manual) (0-10) % Platelet Estimate (NORMAL) Hypochromasia (manual) Poikilocytosis (manual Basophilic Stippling Anisocytosis (manual) Puncture Site pCO2 (35-45) mm/Hg pO2 (80-100) mm/Hg HCO3 (21-28) mmol/L ABG pH (7.35-7.45) ABG Total CO2 (22-28) mmol/L ABG O2 Saturation (95-98) % ABG Base Excess (-2.0-3.0) mmol/L ABG Hemoglobin (11.7-17.4) g/dL ABG Carboxyhemoglobin (0.5-1.5) % POC ABG HHb (Measured) (0.0-5.0) % ABG Methemoglobin (0.0-3.0) % Jasvir Test A-a O2 Difference mm/Hg Respiratory Index Hgb O2 Saturation (95.0-98.0) % Vent Mode Mechanical Rate FiO2 % Tidal Volume PEEP Sodium (132-148) mmol/L Potassium (3.6-5.2) mmol/L Chloride (98-107) mmol/L Carbon Dioxide (22-30) mmol/L Anion Gap (10-20) BUN (7-17) mg/dL Creatinine (0.7-1.2) MG/DL Est GFR ( Amer) Est GFR (Non-Af Amer) POC Glucose (mg/dL) (65-110) mg/dL Random Glucose (65-105) mg/dL Calcium (8.6-10.4) mg/dl Phosphorus (2.5-4.5) mg/dL Magnesium (1.6-2.3) mg/dL Total Bilirubin (0.2-1.3) mg/dL AST (14-36) U/L ALT (9-52) U/L Alkaline Phosphatase (38-126) U/L Total Protein (6.3-8.3) g/dL Albumin (3.5-5.0) g/dL Globulin (2.2-3.9) gm/dL Albumin/Globulin Ratio (1.0-2.1) Hepatitis A IgM Ab Negative (NEGATIVE) Hep Bs Antigen Negative (NEGATIVE) Hep B Core IgM Ab Negative (NEGATIVE) Hepatitis C Antibody Negative (NEGATIVE) Laboratory Results - last 24 hr 07/03/17 07/03/1717 10:02 22:10 23:49 WBC RBC Hgb Hct MCV MCH MCHC RDW Plt Count MPV Neut % (Auto) Lymph % (Auto) [place] % (Auto) Eos % (Auto) Baso % (Auto) Neut # Lymph # [place] # Eos # Baso # Neutrophils % (Manual) Lymphocytes % (Manual) Monocytes % (Manual) Platelet Estimate Hypochromasia (manual) Poikilocytosis (manual Basophilic Stippling Anisocytosis (manual) Puncture Site Rra pCO2 37 pO2 130 H HCO3 33.5 H ABG pH 7.57 H ABG Total CO2 35.0 H ABG O2 Saturation 99.7 H ABG Base Excess 10.9 H ABG Hemoglobin 7.1 L ABG Carboxyhemoglobin 1.7 H POC ABG HHb (Measured) 0.3 ABG Methemoglobin 1.6 Jasvir Test Pos A-a O2 Difference 323.0 Respiratory Index 2.5 Hgb O2 Saturation 96.4 Vent Mode A/c Mechanical Rate 14 FiO2 70.0 Tidal Volume 400 PEEP 5 Sodium Potassium Chloride Carbon Dioxide Anion Gap BUN Creatinine Est GFR ( Amer) Est GFR (Non-Af Amer) POC Glucose (mg/dL) 116 H Random Glucose Calcium Phosphorus Magnesium Total Bilirubin AST ALT Alkaline Phosphatase Total Protein Albumin Globulin Albumin/Globulin Ratio Hepatitis A IgM Ab Negative Hep Bs Antigen Negative Hep B Core IgM Ab Negative Hepatitis C Antibody Negative 07/04/17 07/04/17 07/04/17 04:40 06:19 06:25 WBC 24.5 H RBC 2.68 L Hgb 7.0 L Hct 22.9 L MCV 85.3 MCH 26.1 L MCHC 30.6 L RDW 18.4 H Plt Count 168 MPV 11.3 Neut % (Auto) 85.3 H Lymph % (Auto) 9.7 L [place] % (Auto) 2.8 Eos % (Auto) 1.4 Baso % (Auto) 0.8 Neut # 20.9 H Lymph # 2.4 [place] # 0.7 Eos # 0.3 Baso # 0.2 Neutrophils % (Manual) 88 H Lymphocytes % (Manual) 9 L Monocytes % (Manual) 3 Platelet Estimate Normal Hypochromasia (manual) Slight Poikilocytosis (manual Slight Basophilic Stippling Slight Anisocytosis (manual) Slight Puncture Site Rr pCO2 38 pO2 119 H HCO3 29.6 H ABG pH 7.50 H ABG Total CO2 30.8 H ABG O2 Saturation 100.0 H ABG Base Excess 6.0 H ABG Hemoglobin 7.8 L ABG Carboxyhemoglobin 2.1 H POC ABG HHb (Measured) 0.0 ABG Methemoglobin 1.3 Jasvir Test Pos A-a O2 Difference 333.0 Respiratory Index 2.8 Hgb O2 Saturation 96.6 Vent Mode Prvc Mechanical Rate 10 FiO2 70.0 Tidal Volume 400 PEEP 5 Sodium Potassium Chloride Carbon Dioxide Anion Gap BUN Creatinine Est GFR ( Amer) Est GFR (Non-Af Amer) POC Glucose (mg/dL) 249 H Random Glucose Calcium Phosphorus Magnesium Total Bilirubin AST ALT Alkaline Phosphatase Total Protein Albumin Globulin Albumin/Globulin Ratio Hepatitis A IgM Ab Hep Bs Antigen Hep B Core IgM Ab Hepatitis C Antibody 07/04/17 07/04/17 07/04/17 06:25 11:38 14:59 WBC 25.9 H RBC 2.71 L Hgb 7.1 L Hct 23.4 L MCV 86.1 MCH 26.2 L MCHC 30.5 L RDW 18.3 H Plt Count 163 MPV 10.5 Neut % (Auto) 77.9 H Lymph % (Auto) 16.3 L [place] % (Auto) 3.6 Eos % (Auto) 1.6 Baso % (Auto) 0.6 Neut # 20.2 H Lymph # 4.2 [place] # 0.9 H Eos # 0.4 Baso # 0.1 Neutrophils % (Manual) Lymphocytes % (Manual) Monocytes % (Manual) Platelet Estimate Hypochromasia (manual) Poikilocytosis (manual Basophilic Stippling Anisocytosis (manual) Puncture Site pCO2 pO2 HCO3 ABG pH ABG Total CO2 ABG O2 Saturation ABG Base Excess ABG Hemoglobin ABG Carboxyhemoglobin POC ABG HHb (Measured) ABG Methemoglobin Jasvir Test A-a O2 Difference Respiratory Index Hgb O2 Saturation Vent Mode Mechanical Rate FiO2 Tidal Volume PEEP Sodium 148 Potassium 2.8 L Chloride 109 H Carbon Dioxide 28 Anion Gap 14 BUN 43 H Creatinine 2.1 H Est GFR ( Amer) 28 Est GFR (Non-Af Amer) 23 POC Glucose (mg/dL) 170 H Random Glucose 189 H Calcium 8.2 L Phosphorus 2.5 Magnesium 1.7 Total Bilirubin 0.8 AST 67 H ALT 54 H Alkaline Phosphatase 100 Total Protein 5.4 L Albumin 2.7 L D Globulin 2.6 Albumin/Globulin Ratio 1.0 Hepatitis A IgM Ab Hep Bs Antigen Hep B Core IgM Ab Hepatitis C Antibody 07/04/17 17:46 WBC RBC Hgb Hct MCV MCH MCHC RDW Plt Count MPV Neut % (Auto) Lymph % (Auto) [place] % (Auto) Eos % (Auto) Baso % (Auto) Neut # Lymph # [place] # Eos # Baso # Neutrophils % (Manual) Lymphocytes % (Manual) Monocytes % (Manual) Platelet Estimate Hypochromasia (manual) Poikilocytosis (manual Basophilic Stippling Anisocytosis (manual) Puncture Site pCO2 pO2 HCO3 ABG pH ABG Total CO2 ABG O2 Saturation ABG Base Excess ABG Hemoglobin ABG Carboxyhemoglobin POC ABG HHb (Measured) ABG Methemoglobin Jasvir Test A-a O2 Difference Respiratory Index Hgb O2 Saturation Vent Mode Mechanical Rate FiO2 Tidal Volume PEEP Sodium Potassium Chloride Carbon Dioxide Anion Gap BUN Creatinine Est GFR ( Amer) Est GFR (Non-Af Amer) POC Glucose (mg/dL) 236 H Random Glucose Calcium Phosphorus Magnesium Total Bilirubin AST ALT Alkaline Phosphatase Total Protein Albumin Globulin Albumin/Globulin Ratio Hepatitis A IgM Ab Hep Bs Antigen Hep B Core IgM Ab Hepatitis C Antibody Assessment/Plan - Assessment and Plan (Free Text) Assessment: patient today on ventilator. Full support ventilation. I spoke to the patient's family today. More awake and responding. thick secretions with the mucus and blood noted. currently off onto coagulation. Hemoglobin level is on the low side. Vital signs stable otherwise. Episodes of tachycardia noted. No fever today. Labs reviewed Chest x-ray reviewed Chest x-ray showing improvement in the infiltrative changes. On amiodarone drip. Spoke to the PMD. Patient will be needing possibly tracheostomy. We'll attempt another attempt of weaning trial. Antibiotic, IV Lasix, supportive care, will follow the patient. Unable to do the full anticoagulation currently, because of the bleeding. Once the bleeding is stable, will resume the anticoagulation.
--- NOTE | 2017-07-04 21:52 | PN ---
LOCATION: ICU 12. SUBJECTIVE: This 77-year-old female seen and examined in round in the presence of her family member, appears to be more awake, alert, and oriented, still intubated, and NG tube feeding with aspiration precaution. No reported active bleeding. The patient had been before on Cardizem IV drip and discontinued since amiodarone drip started. The entire chart is reviewed including, but not limited to the most recent lab and radiology study results, current and previous medication list, current and the previous medical events. Case discussed with the staff in the intensive care unit. Most recent lab result showed white blood cells of 24.5 with drop of hemoglobin 7.0, hematocrit 22.9 without evidence of active bleeding, but with normal platelet count with abnormal ABGs with low potassium again to 2.8, increased BUN to 43, creatinine 2.1 with blood glucose level 249, and low calcium 8.2 with mildly elevated AST of 67, ALT 54 with low albumin 2.7. Today's chest x-ray, report seen with extensive resolution of the infiltrate compared to prior examination. PHYSICAL EXAMINATION: GENERAL: A 77-year-old female, intubated, but awake. VITAL SIGNS: Low-grade temperature of 99.7, heart rate of 112 with blood pressure 130/64. HEENT: Showed pale dry oral mucous membranes. Nonicteric sclerae. LUNGS: Scattered crepitation with decrease air entry at bases. HEART: Positive S1 and S2 with increased rate. ABDOMEN: Soft with slight generalized tenderness. No mass or organomegaly. No rebound tenderness or guarding. EXTREMITIES: Slight lower extremity edematous changes. No clubbing or cyanosis. NEUROLOGIC: No reported new neurological deficits, sensory or motor. Peripheral pulses are preserved bilaterally but weak. IMPRESSION: 1. Congestive heart failure. 2. Atrial fibrillation. 3. Bilateral pneumonia with respiratory insufficiency, the patient is intubated, on vent. 4. Malnutrition with hypoalbuminemia. 5. Re-exacerbation of peptic ulcer disease with subsequent drop of hemoglobin and hematocrit. 6. Anemia secondary to above versus chronic disease. 8. Dehydration with renal insufficiency. 9. Syncopal episode by recent history. 10. Electrolyte imbalance with hypokalemia. SUGGESTIONS: 1. Continue current management. 2. Antireflux measures. 3. Guaiac-positive stool, KUB x3. 4. Cancer markers. 5. Peripheral hyperalimentation. 6. If the patient's symptoms persist then PEG insertion to be considered when the patient is more stable clinically. 7. Further recommendations to follow. Diana Cazares MD
[2017-07-04] MEDS: Micafungin 100 MG in Sodium Chloride 0.9% 100 ML IV SCH (22:22)
[2017-07-04 22:43] LABS: BASO # 0.1 K/uL (0.0-0.2); BASO % 0.7 % (0.0-2.0); EOS # 0.6 K/uL (0.0-0.7); EOS % 2.6 % (0.0-4.0); HEMATOCRIT 26.3 % (34.0-47.0); LYMPH # 2.6 K/uL (1.0-4.3); LYMPH % 12.2 % (20.0-40.0); MEAN CORPUSCULAR HEMOGLOBIN 26.2 pg (27.0-31.0); MEAN CORPUSCULAR HGB CONC 30.2 g/dL (33.0-37.0); MEAN PLATELET VOLUME 10.6 fL (7.2-11.7); MONO # 0.8 K/uL (0.0-0.8); MONO % 3.8 % (0.0-10.0); NRBC % 0.1 % (0.0-2.0); RED CELL DISTRIBUTION WIDTH 18.2 % (11.5-14.5); WHITE BLOOD COUNT 21.6 K/uL (4.8-10.8)
[2017-07-04 22:49] LABS: POTASSIUM 3.6 mmol/L (3.6-5.2)
[2017-07-04 22:52] LABS: CALCIUM 7.9 mg/dl (8.6-10.4); MAGNESIUM 1.8 mg/dL (1.6-2.3)
[2017-07-05] MEDS: (Novolin R) Insulin Human Regular 100 units/ml vial SC SCH ×4 (00:43→18:27)
[2017-07-05] MEDS: Piperacill/Tazo 2.25gm in Dex 2.25 GM/50 ML BAG IVPB SCH ×3 (01:31→17:06)
[2017-07-05] MEDS: Albuterol-Ipratrop 3 mg / 0.5 (3 ml) UD INH SCH ×4 (01:48→20:41)
[2017-07-05] MEDS: Propofol 10 mg/ml 1,000 MG/100 ML VIAL IV PRN ×2 (01:48→17:07)
[2017-07-05 06:15] LABS: ABG ALLEN TEST POS; ABG MECHANICAL RATE 10; ARTERIAL BLOOD GAS MODE PRVC; ATERIAL BLOOD GAS PEEP 5; CARBOXYHEMOGLOBIN 2.4 % (0.5-1.5); DRAW SITE R RAD; HHB -0.2 % (0.0-5.0); METHEMOGLOBIN 0.8 % (0.0-3.0)
[2017-07-05 06:48] LABS: BASO # 0.1 K/uL (0.0-0.2); BASO % 0.8 % (0.0-2.0); EOS # 0.4 K/uL (0.0-0.7); EOS % 2.1 % (0.0-4.0); HEMATOCRIT 22.9 % (34.0-47.0); LYMPH # 1.9 K/uL (1.0-4.3); LYMPH % 9.9 % (20.0-40.0); MEAN CELL VOLUME 85.8 fL (81.0-99.0); MEAN CORPUSCULAR HEMOGLOBIN 26.4 pg (27.0-31.0); MEAN CORPUSCULAR HGB CONC 30.8 g/dL (33.0-37.0); MEAN PLATELET VOLUME 11.2 fL (7.2-11.7); MONO # 0.7 K/uL (0.0-0.8); MONO % 3.6 % (0.0-10.0); NRBC % 0.1 % (0.0-2.0); PLATELET COUNT 152 K/uL (130-400); RED CELL DISTRIBUTION WIDTH 18.1 % (11.5-14.5)
[2017-07-05 07:07] LABS: POTASSIUM 3.5 mmol/L (3.6-5.2)
[2017-07-05 07:09] LABS: ALB/GLOB RATIO 0.9 (1.0-2.1); BILIRUBIN,TOTAL 0.8 mg/dL (0.2-1.3); TOTAL PROTEIN 5.6 g/dL (6.3-8.3)
[2017-07-05 07:10] LABS: CALCIUM 7.6 mg/dl (8.6-10.4); MAGNESIUM 1.8 mg/dL (1.6-2.3); PHOSPHOROUS 2.9 mg/dL (2.5-4.5)
[2017-07-05 08:35] LABS: EOSINOPHIL 3 % (0-4); NEUTROPHIL 85 % (50-75); TOTAL CELLS COUNTED 100
--- NOTE | 2017-07-05 10:20 | RAD ---
HISTORY: intubation COMPARISON: 07/04/2017 FINDINGS: LUNGS: Anomaly right sided infiltrates are re- suggested. There is well increased nodular like untoward to the prior right upper lobe opacity round infiltrate atelectasis versus underlying mass/nodule with surrounding infiltrate-considerations. Similar right infrahilar lung base air bronchograms show infiltrate. No interval left hemithoracic pathology noted. No similar extensive left hemithoracic opacity suggested. All left retrocardiac air bronchograms are re- suggested some minimal peribronchial thickening on minimal infiltrate here possible -similar appearance in left PLEURA: No significant pleural effusion identified, no pneumothorax apparent. CARDIOVASCULAR: Cardiomegaly. Mild central pulmonary venous congestion suspect probably similar possibly chronic OSSEOUS STRUCTURES: No significant abnormalities. VISUALIZED UPPER ABDOMEN: Normal. OTHER FINDINGS: Endotracheal tube tip 8 mm from the merary consider to 1 to 1.5 cm retraction. NG tube courses beyond the GE junction-. Tip beyond the inferior image IMPRESSION: The right upper lobe airspace opacity the prior right upper lobe airspace opacity/infiltrate has a slightly more nodular contour to it suggested rounded infiltrate rounded atelectasis are some considerations. Underlying right upper lobe pulmonary nodule or mass is not excluded. The bibasilar air bronchograms consistent with atelectasis and infiltrates appears similar - right is more notable than left yet still similar-appearing Endotracheal tube tip low in the trachea consider retraction. NG tube courses distal to GE junction
[2017-07-05] MEDS ORDERED: Metoprolol 1 mg/ml Inj IVP ONE (10:46)
--- NOTE | 2017-07-05 12:27 | CP.PCM.PN ---
Subjective - Date & Time of Evaluation Date of Evaluation: 07/05/17 Time of Evaluation: 12:26 - Subjective Subjective: seen and examined intubated. son at bedside, condition discussed good uop creatinine stable Objective - Vital Signs/Intake and Output Vital Signs (last 24 hours): Temp Pulse Resp BP Pulse Ox 99.0 F 76 22 131/56 L 100 07/05/17 12:00 07/05/17 12:00 07/05/17 12:00 07/05/17 11:36 07/05/17 12:00 Intake and Output: 07/05/17 07/05/17 06:59 18:59 Intake Total 651.9 619.0 Output Total 355 370 Balance 296.9 249.0 - Medications Medications: Current Medications Albuterol/Ipratropium (Duoneb 3 Mg/0.5 Mg (3 Ml) Ud) 3 ml INH RQ6 [facility] Last Admin: 07/05/17 07:43 Dose: 3 ml Amiodarone HCl (Cordarone) 200 mg PO BID [facility] Last Admin: 07/05/17 09:27 Dose: 200 mg Famotidine (Pepcid) 20 mg IVP DAILY [facility] Last Admin: 07/05/17 09:27 Dose: 20 mg Piperacillin Sod/Tazobactam Sod (Zosyn 2.25 Gm Iv Premix) 2.25 gm in 50 mls @ 100 mls/hr IVPB Q8H [facility] Last Admin: 07/05/17 09:27 Dose: 100 mls/hr Vancomycin/Sodium Chloride (Vancocin) 1 gm in 200 mls @ 133.333 mls/hr IVPB Q24H [facility] Last Admin: 06/28/17 13:00 Dose: Not Given Heparin Sodium/Sodium Chloride (Heparin 46397 Units/250ml 1/2 Normal Saline) 25 ,000 units in 250 mls @ 7.947 mls/hr IV .Q24H PRN; Protocol; 12 UNITS/KG/HR PRN Reason: TITRATE PER PROTOCOL Last Admin: 07/03/17 01:42 Dose: 12 units/kg/hr, 7.947 mls/hr Propofol (Diprivan) 1,000 mg in 100 mls @ 1.926 mls/hr IV .Q24H PRN; Protocol; 5 MCG/KG/MIN PRN Reason: TITRATE PER MD ORDER Last Admin: 07/05/17 01:48 Dose: 15 mcg/kg/min, 5.779 mls/hr Micafungin Sodium 100 mg/ (Sodium Chloride) 100 mls @ 100 mls/hr IV Q24H [facility] Last Admin: 07/04/17 22:22 Dose: 100 mls/hr Potassium Chloride (Potassium Chloride 10 Meq/100 Ml) 10 meq in 100 mls @ 100 mls/hr IVPB Q1H [facility] Stop: 07/05/17 12:59 Last Admin: 07/05/17 11:11 Dose: 100 mls/hr Insulin Human Regular (Novolin R) 0 unit SC Q6 [facility] PRN Reason: Protocol Last Admin: 07/05/17 07:02 Dose: 1 unit Lorazepam (Ativan) 2 mg IVP Q6H PRN PRN Reason: Anxiety Last Admin: 07/04/17 14:43 Dose: 2 mg Metoprolol Tartrate (Lopressor) 25 mg PO Q12 [facility] - Labs Labs: 07/05/17 06:38 07/05/17 06:36 PT 14.1 SECONDS (9.7-12.2) H 07/02/17 07:13 INR 1.3 07/02/17 07:13 APTT 49 SECONDS (21-34) H 07/03/17 06:20 - Constitutional Appears: Non-toxic, No Acute Distress, Chronically Ill - Head Exam Head Exam: NORMAL INSPECTION - Eye Exam Eye Exam: Normal appearance - ENT Exam Additional comments: et tube - Neck Exam Neck Exam: Normal Inspection - Respiratory Exam Respiratory Exam: Decreased Breath Sounds (mechanical vent) - Cardiovascular Exam Cardiovascular Exam: REGULAR RHYTHM, RRR - GI/Abdominal Exam GI & Abdominal Exam: Distended, Soft - Extremities Exam Extremities Exam: Normal Inspection, Pedal Edema Assessment and Plan (1) CKD (chronic kidney disease) Status: Acute (2) Acute respiratory failure with hypoxemia Status: Acute (3) Anemia Status: Acute (4) Elevated troponin Status: Acute (5) Acute renal failure Status: Acute - Assessment and Plan (Free Text) Assessment: ckd 4 stable add fere water flushes w/ tube feeds for hypernatremia at high risk for contrast nephropathy w/ cardiac cath
--- NOTE | 2017-07-05 12:56 | CP.PCM.CON ---
History of Present Illness - History of Present Illness History of Present Illness: 77-year-old female with history of hypertension diabetes CAD admitted with the atrial fibrillation, complicated with the congestive heart failure, renal insufficiency. But the for the last 3 days patient is on BiPAP. Not improving. Patient is agitated. Not eating well. Cough minimally noted, dry mouth noted. Patient is needing high FiO2 Chest x-ray showing worsening infiltrative changes. I spoke to the family. Under decided to intubate the patient. Patient was intubated. Currently on 100% FiO2 IV RX ORDERED Review of Systems - Review of Systems Systems not reviewed;Unavailable: Altered Mental Status, Intubated All systems: reviewed and no additional remarkable complaints except Past Patient History - Infectious Disease Hx of Infectious Diseases: None - Past Medical History & Family History Past Medical History?: Yes - Past Social History Smoking Status: Never Smoked - CARDIAC Hx Hypercholesterolemia: Yes Hx Hypertension: Yes - PULMONARY Hx Respiratory Disorders: No - NEUROLOGICAL Hx Neurological Disorder: No - HEENT Hx HEENT Problems: Yes Hx Cataracts: Yes (BIOL) - RENAL Hx Chronic Kidney Disease: Yes - ENDOCRINE/METABOLIC Hx Diabetes Mellitus Type 2: Yes - HEMATOLOGICAL/ONCOLOGICAL Hx Blood Disorders: No Hx Blood Transfusions: No - INTEGUMENTARY Hx Dermatological Problems: No - MUSCULOSKELETAL/RHEUMATOLOGICAL Hx Arthritis: Yes - GASTROINTESTINAL Hx Gastrointestinal Disorders: No - GENITOURINARY/GYNECOLOGICAL Hx Genitourinary Disorders: No - PSYCHIATRIC Hx Substance Use: No - SURGICAL HISTORY Hx Surgeries: Yes Hx Cataract Extraction: Yes (BIOL) - ANESTHESIA Hx Anesthesia: Yes Hx Anesthesia Reactions: No Hx Malignant Hyperthermia: No Meds Allergies/Adverse Reactions: Allergies Allergy/AdvReac Type Severity Reaction Status Date / Time No Known Allergies Allergy Verified 06/26/17 02:25 - Medications Medications: Current Medications Albuterol/Ipratropium (Duoneb 3 Mg/0.5 Mg (3 Ml) Ud) 3 ml INH RQ6 [facility] Last Admin: 07/05/17 07:43 Dose: 3 ml Amiodarone HCl (Cordarone) 200 mg PO BID [facility] Last Admin: 07/05/17 09:27 Dose: 200 mg Famotidine (Pepcid) 20 mg IVP DAILY [facility] Last Admin: 07/05/17 09:27 Dose: 20 mg Piperacillin Sod/Tazobactam Sod (Zosyn 2.25 Gm Iv Premix) 2.25 gm in 50 mls @ 100 mls/hr IVPB Q8H [facility] Last Admin: 07/05/17 09:27 Dose: 100 mls/hr Vancomycin/Sodium Chloride (Vancocin) 1 gm in 200 mls @ 133.333 mls/hr IVPB Q24H [facility] Last Admin: 06/28/17 13:00 Dose: Not Given Heparin Sodium/Sodium Chloride (Heparin 44870 Units/250ml 1/2 Normal Saline) 25 ,000 units in 250 mls @ 7.947 mls/hr IV .Q24H PRN; Protocol; 12 UNITS/KG/HR PRN Reason: TITRATE PER PROTOCOL Last Admin: 07/03/17 01:42 Dose: 12 units/kg/hr, 7.947 mls/hr Propofol (Diprivan) 1,000 mg in 100 mls @ 1.926 mls/hr IV .Q24H PRN; Protocol; 5 MCG/KG/MIN PRN Reason: TITRATE PER MD ORDER Last Admin: 07/05/17 01:48 Dose: 15 mcg/kg/min, 5.779 mls/hr Micafungin Sodium 100 mg/ (Sodium Chloride) 100 mls @ 100 mls/hr IV Q24H [facility] Last Admin: 07/04/17 22:22 Dose: 100 mls/hr Potassium Chloride (Potassium Chloride 10 Meq/100 Ml) 10 meq in 100 mls @ 100 mls/hr IVPB Q1H [facility] Stop: 07/05/17 12:59 Last Admin: 07/05/17 12:33 Dose: 100 mls/hr Insulin Human Regular (Novolin R) 0 unit SC Q6 [facility] PRN Reason: Protocol Last Admin: 07/05/17 12:32 Dose: 6 unit Lorazepam (Ativan) 2 mg IVP Q6H PRN PRN Reason: Anxiety Last Admin: 07/04/17 14:43 Dose: 2 mg Metoprolol Tartrate (Lopressor) 25 mg PO Q12 [facility] Physical Exam - Constitutional Appears: Chronically Ill - Head Exam Head Exam: ATRAUMATIC, NORMOCEPHALIC - Eye Exam Eye Exam: PERRL. absent: Scleral icterus - ENT Exam ENT Exam: Mucous Membranes Dry - Neck Exam Neck exam: Negative for: Lymphadenopathy - Respiratory Exam Respiratory Exam: Decreased Breath Sounds, Rhonchi - Cardiovascular Exam Cardiovascular Exam: REGULAR RHYTHM, +S1, +S2 - GI/Abdominal Exam GI & Abdominal Exam: Diminished Bowel Sounds, Soft. absent: Tenderness - Rectal Exam Rectal Exam: Deferred - Exam Exam: NORMAL INSPECTION - Extremities Exam Extremities exam: Positive for: pedal pulses present. Negative for: calf tenderness, pedal edema, tenderness - Back Exam Back exam: absent: CVA tenderness (L), CVA tenderness (R) - Neurological Exam Neurological exam: Alert, Altered, CN II-XII Intact - Skin Skin Exam: Dry Results - Vital Signs Recent Vital Signs: Last Vital Signs Temp 99.0 F 07/05/17 12:00 Pulse 76 07/05/17 12:00 Resp 22 07/05/17 12:00 BP 131/56 L 07/05/17 11:36 Pulse Ox 100 07/05/17 12:00 - Labs Result Diagrams: 07/06/17 07:39 07/06/17 06:04 Labs: Laboratory Results - last 24 hr 07/04/17 07/04/17 07/04/17 14:59 17:46 22:37 WBC 25.9 H 21.6 H RBC 2.71 L 3.02 L Hgb 7.1 L 7.9 L Hct 23.4 L 26.3 L MCV 86.1 87.0 MCH 26.2 L 26.2 L MCHC 30.5 L 30.2 L RDW 18.3 H 18.2 H Plt Count 163 153 MPV 10.5 10.6 Neut % (Auto) 77.9 H 80.7 H Lymph % (Auto) 16.3 L 12.2 L [place] % (Auto) 3.6 3.8 Eos % (Auto) 1.6 2.6 Baso % (Auto) 0.6 0.7 Neut # 20.2 H 17.4 H Lymph # 4.2 2.6 [place] # 0.9 H 0.8 Eos # 0.4 0.6 Baso # 0.1 0.1 Neutrophils % (Manual) Lymphocytes % (Manual) Monocytes % (Manual) Eosinophils % (Manual) Platelet Estimate Polychromasia Hypochromasia (manual) Poikilocytosis (manual Anisocytosis (manual) Microcytosis (manual) Macrocytosis (manual) Target Cells Puncture Site pCO2 pO2 HCO3 ABG pH ABG Total CO2 ABG O2 Saturation ABG Base Excess ABG Hemoglobin ABG Carboxyhemoglobin POC ABG HHb (Measured) ABG Methemoglobin Jasvir Test A-a O2 Difference Respiratory Index Hgb O2 Saturation Vent Mode Mechanical Rate FiO2 Tidal Volume PEEP Sodium Potassium Chloride Carbon Dioxide Anion Gap BUN Creatinine Est GFR ( Amer) Est GFR (Non-Af Amer) POC Glucose (mg/dL) 236 H Random Glucose Calcium Phosphorus Magnesium Total Bilirubin AST ALT Alkaline Phosphatase Total Protein Albumin Globulin Albumin/Globulin Ratio Urine Collection Time Urine Total Volume Ur Protein 24 Hr Calc 07/04/17 07/05/17 07/05/17 22:37 00:40 05:02 WBC RBC Hgb Hct MCV MCH MCHC RDW Plt Count MPV Neut % (Auto) Lymph % (Auto) [place] % (Auto) Eos % (Auto) Baso % (Auto) Neut # Lymph # [place] # Eos # Baso # Neutrophils % (Manual) Lymphocytes % (Manual) Monocytes % (Manual) Eosinophils % (Manual) Platelet Estimate Polychromasia Hypochromasia (manual) Poikilocytosis (manual Anisocytosis (manual) Microcytosis (manual) Macrocytosis (manual) Target Cells Puncture Site R rad pCO2 44 pO2 147 H HCO3 29.6 H ABG pH 7.45 ABG Total CO2 32.0 H ABG O2 Saturation 100.2 H ABG Base Excess 6.0 H ABG Hemoglobin 7.4 L ABG Carboxyhemoglobin 2.4 H POC ABG HHb (Measured) -0.2 L ABG Methemoglobin 0.8 Jasvir Test Pos A-a O2 Difference 155.0 Respiratory Index 1.1 Hgb O2 Saturation 97.0 Vent Mode Prvc Mechanical Rate 10 FiO2 50.0 Tidal Volume 400 PEEP 5 Sodium 147 Potassium 3.6 Chloride 108 H Carbon Dioxide 25 Anion Gap 18 BUN 48 H Creatinine 2.3 H Est GFR ( Amer) 25 Est GFR (Non-Af Amer) 21 POC Glucose (mg/dL) 269 H Random Glucose 272 H Calcium 7.9 L Phosphorus Magnesium 1.8 Total Bilirubin 1.0 AST 66 H ALT 61 H Alkaline Phosphatase 120 Total Protein 6.0 L Albumin 3.0 L Globulin 3.0 Albumin/Globulin Ratio 1.0 Urine Collection Time Urine Total Volume Ur Protein 24 Hr Calc 07/05/17 07/05/17 07/05/17 06:13 06:36 06:38 WBC 19.0 H RBC 2.67 L Hgb 7.1 L Hct 22.9 L MCV 85.8 MCH 26.4 L MCHC 30.8 L RDW 18.1 H Plt Count 152 MPV 11.2 Neut % (Auto) 83.6 H Lymph % (Auto) 9.9 L [place] % (Auto) 3.6 Eos % (Auto) 2.1 Baso % (Auto) 0.8 Neut # 15.9 H Lymph # 1.9 [place] # 0.7 Eos # 0.4 Baso # 0.1 Neutrophils % (Manual) 85 H Lymphocytes % (Manual) 8 L Monocytes % (Manual) 4 Eosinophils % (Manual) 3 Platelet Estimate Normal Polychromasia Slight Hypochromasia (manual) Moderate Poikilocytosis (manual Slight Anisocytosis (manual) Slight Microcytosis (manual) Slight Macrocytosis (manual) Slight Target Cells Slight Puncture Site pCO2 pO2 HCO3 ABG pH ABG Total CO2 ABG O2 Saturation ABG Base Excess ABG Hemoglobin ABG Carboxyhemoglobin POC ABG HHb (Measured) ABG Methemoglobin Jasvir Test A-a O2 Difference Respiratory Index Hgb O2 Saturation Vent Mode Mechanical Rate FiO2 Tidal Volume PEEP Sodium 150 H Potassium 3.5 L Chloride 111 H Carbon Dioxide 25 Anion Gap 18 BUN 50 H Creatinine 2.1 H Est GFR ( Amer) 28 Est GFR (Non-Af Amer) 23 POC Glucose (mg/dL) 265 H Random Glucose 257 H Calcium 7.6 L Phosphorus 2.9 Magnesium 1.8 Total Bilirubin 0.8 AST 51 H D ALT 54 H Alkaline Phosphatase 108 Total Protein 5.6 L Albumin 2.7 L Globulin 3.0 Albumin/Globulin Ratio 0.9 L Urine Collection Time Urine Total Volume Ur Protein 24 Hr Calc 07/05/17 07/05/17 07:23 12:22 WBC RBC Hgb Hct MCV MCH MCHC RDW Plt Count MPV Neut % (Auto) Lymph % (Auto) [place] % (Auto) Eos % (Auto) Baso % (Auto) Neut # Lymph # [place] # Eos # Baso # Neutrophils % (Manual) Lymphocytes % (Manual) Monocytes % (Manual) Eosinophils % (Manual) Platelet Estimate Polychromasia Hypochromasia (manual) Poikilocytosis (manual Anisocytosis (manual) Microcytosis (manual) Macrocytosis (manual) Target Cells Puncture Site pCO2 pO2 HCO3 ABG pH ABG Total CO2 ABG O2 Saturation ABG Base Excess ABG Hemoglobin ABG Carboxyhemoglobin POC ABG HHb (Measured) ABG Methemoglobin Jasvir Test A-a O2 Difference Respiratory Index Hgb O2 Saturation Vent Mode Mechanical Rate FiO2 Tidal Volume PEEP Sodium Potassium Chloride Carbon Dioxide Anion Gap BUN Creatinine Est GFR ( Amer) Est GFR (Non-Af Amer) POC Glucose (mg/dL) 306 H Random Glucose Calcium Phosphorus Magnesium Total Bilirubin AST ALT Alkaline Phosphatase Total Protein Albumin Globulin Albumin/Globulin Ratio Urine Collection Time 24 Urine Total Volume 775 Ur Protein 24 Hr Calc 689.8 H Assessment & Plan (1) Acute renal failure Status: Acute (2) Acute respiratory failure with hypoxemia Status: Acute (3) Anemia Status: Acute (4) CKD (chronic kidney disease) Status: Acute (5) CKD stage 4 due to type 2 diabetes mellitus Status: Acute (6) Pulmonary edema Status: Acute (7) UTI (urinary tract infection) Status: Acute
--- NOTE | 2017-07-05 13:31 | CP.CCUPN ---
<Dharmesh Trevino - Last Filed: 07/05/17 15:53> CCU Subjective - Physician Review Events Since Last Encounter (Free Text): CCM Chart reviewed, pt examined/ discussed with housestaff intubated sedated Neck-no jvd Lungs- bilat coarse bs, few crackles Heart-rr ABd- benign Ext- nontender Labs, [id number] A&P Resp Failure( recurrent CHF r/o PNA CKD A-fib Gatritis DM HTN CAD Arthritis cont meds diurese titrate BIPAP start Precedex for sedation Optimize rate control maintain optimal lytes SBT when rate controlled CCU Objective - Vital Signs / Intake & Output Vital Signs (Last 4 hours): Vital Signs Temp Pulse Resp BP Pulse Ox 07/05/17 15:00 126 H 19 100 07/05/17 14:37 120 H 25 H 136/62 100 07/05/17 14:00 112 H 19 100 07/05/17 13:36 78 23 149/58 L 100 07/05/17 13:00 80 24 100 07/05/17 12:36 79 27 H 146/65 100 07/05/17 12:00 99.0 F 76 22 100 Intake and Output (Last 8hrs): Intake & Output 07/05/17 07/05/17 07/05/17 06:59 14:59 22:59 Intake Total 427.3 710.6 45.8 Output Total 215 600 80 Balance 212.3 110.6 -34.2 Weight 139 lb 15.896 oz Intake: IV 58 Intake, IV Amount 79.3 290.6 5.8 Right Antecubital 33.2 0 0 Right Forearm 0 250 0 Right Hand 46.1 40.6 5.8 Oral 100 Tube Feeding 290 320 40 Output: Urine 215 600 80 Urethral (Neff) 215 600 80 Other: # Bowel Movements 0 0 - Medications Active Medications: Active Medications Generic Name Dose Route Start Last Admin Trade Name Freq PRN Reason Stop Dose Admin Albuterol/Ipratropium 3 ml 07/04/17 08:00 07/05/17 14:01 Duoneb 3 Mg/0.5 Mg (3 Ml) Ud INH 3 ml RQ6 ASIM Administration Amiodarone HCl 200 mg 07/04/17 23:15 07/05/17 09:27 Cordarone PO 200 mg BID ASIM Administration Famotidine 20 mg 06/26/17 10:00 07/05/17 09:27 Pepcid IVP 20 mg DAILY ASIM Administration Piperacillin Sod/Tazobactam Sod 2.25 gm in 50 mls @ 100 mls/hr 06/26/17 09:00 07/05/17 09:27 Zosyn 2.25 Gm Iv Premix IVPB 100 mls/hr Q8H ASIM Administration Vancomycin/Sodium Chloride 1 gm in 200 mls @ 133.333 mls/hr 06/27/17 12:00 13:00 Vancocin IVPB Not Given Q24H ASIM Heparin Sodium/Sodium Chloride 25,000 units in 250 mls @ 7.947 mls/hr 08:36 07/03/17 01:42 Heparin 24669 Units/250ml 1/2 Normal Saline IV 12 units/kg/hr .Q24H PRN 7.947 mls/hr TITRATE PER PROTOCOL Administration Protocol 12 UNITS/KG/HR Propofol 1,000 mg in 100 mls @ 1.926 mls/hr 07/03/17 09:24 07/05/17 01:48 Diprivan IV 15 mcg/kg/min .Q24H PRN 5.779 mls/hr TITRATE PER MD ORDER Administration Protocol 5 MCG/KG/MIN Micafungin Sodium 100 mg/ 100 mls @ 100 mls/hr 07/04/17 20:00 07/04/17 22:22 Sodium Chloride IV 100 mls/hr Q24H ASIM Administration Insulin Human Regular 0 unit 06/27/17 13:02 07/05/17 12:32 Novolin R SC 6 unit Q6 ASIM Administration Protocol Lorazepam 2 mg 07/03/17 09:24 07/04/17 14:43 Ativan IVP 2 mg Q6H PRN Administration Anxiety Metoprolol Tartrate 25 mg 07/05/17 22:00 Lopressor PO Q12 [facility] Vitamin A 1 ea 07/05/17 18:00 Vitamin A & D Oint Ud Foilpak TOP BID ASIM - Patient Studies Lab Studies: Microbiology Studies 07/03/17 Unknown Gram Stain - Final Trachasp Sputum Culture - Final NORMAL ORAL STEPHANIE 07/03/17 09:30 Blood Culture - Preliminary Blood-Venous NO GROWTH AFTER 48 HOURS Lab Studies 08/07/05/17 07/05/17 Range/Units 12:22 07:23 06:38 WBC 19.0 H (4.8-10.8) K/uL RBC 2.67 L (3.80-5.20) Mil/uL Hgb 7.1 L (11.0-16.0) g/dL Hct 22.9 L (34.0-47.0) % MCV 85.8 (81.0-99.0) fL MCH 26.4 L (27.0-31.0) pg MCHC 30.8 L (33.0-37.0) g/dL RDW 18.1 H (11.5-14.5) % Plt Count 152 (130-400) K/uL MPV 11.2 (7.2-11.7) fL Neut % (Auto) 83.6 H (50.0-75.0) % Lymph % (Auto) 9.9 L (20.0-40.0) % [place] % (Auto) 3.6 (0.0-10.0) % Eos % (Auto) 2.1 (0.0-4.0) % Baso % (Auto) 0.8 (0.0-2.0) % Neut # 15.9 H (1.8-7.0) K/uL Lymph # 1.9 (1.0-4.3) K/uL [place] # 0.7 (0.0-0.8) K/uL Eos # 0.4 (0.0-0.7) K/uL Baso # 0.1 (0.0-0.2) K/uL Neutrophils % (Manual) 85 H (50-75) % Lymphocytes % (Manual) 8 L (20-40) % Monocytes % (Manual) 4 (0-10) % Eosinophils % (Manual) 3 (0-4) % Platelet Estimate Normal (NORMAL) Polychromasia Slight Hypochromasia (manual) Moderate Poikilocytosis (manual Slight Anisocytosis (manual) Slight Microcytosis (manual) Slight Macrocytosis (manual) Slight Target Cells Slight Puncture Site pCO2 (35-45) mm/Hg pO2 (80-100) mm/Hg HCO3 (21-28) mmol/L ABG pH (7.35-7.45) ABG Total CO2 (22-28) mmol/L ABG O2 Saturation (95-98) % ABG Base Excess (-2.0-3.0) mmol/L ABG Hemoglobin (11.7-17.4) g/dL ABG Carboxyhemoglobin (0.5-1.5) % POC ABG HHb (Measured) (0.0-5.0) % ABG Methemoglobin (0.0-3.0) % Jasvir Test A-a O2 Difference mm/Hg Respiratory Index Hgb O2 Saturation (95.0-98.0) % Vent Mode Mechanical Rate FiO2 % Tidal Volume PEEP Sodium (132-148) mmol/L Potassium (3.6-5.2) mmol/L Chloride (98-107) mmol/L Carbon Dioxide (22-30) mmol/L Anion Gap (10-20) BUN (7-17) mg/dL Creatinine (0.7-1.2) MG/DL Est GFR ( Amer) Est GFR (Non-Af Amer) POC Glucose (mg/dL) 306 H (65-110) mg/dL Random Glucose (65-105) mg/dL Calcium (8.6-10.4) mg/dl Phosphorus (2.5-4.5) mg/dL Magnesium (1.6-2.3) mg/dL Total Bilirubin (0.2-1.3) mg/dL AST (14-36) U/L ALT (9-52) U/L Alkaline Phosphatase (38-126) U/L Total Protein (6.3-8.3) g/dL Albumin (3.5-5.0) g/dL Globulin (2.2-3.9) gm/dL Albumin/Globulin Ratio (1.0-2.1) Urine Collection Time 24 HRS Urine Total Volume 775 mL Ur Protein 24 Hr Calc 689.8 H (42-225) mg/24hr 07/05/17 07/05/17 07/05/17 Range/Units 06:36 06:13 05:02 WBC (4.8-10.8) K/uL RBC (3.80-5.20) Mil/uL Hgb (11.0-16.0) g/dL Hct (34.0-47.0) % MCV (81.0-99.0) fL MCH (27.0-31.0) pg MCHC (33.0-37.0) g/dL RDW (11.5-14.5) % Plt Count (130-400) K/uL MPV (7.2-11.7) fL Neut % (Auto) (50.0-75.0) % Lymph % (Auto) (20.0-40.0) % [place] % (Auto) (0.0-10.0) % Eos % (Auto) (0.0-4.0) % Baso % (Auto) (0.0-2.0) % Neut # (1.8-7.0) K/uL Lymph # (1.0-4.3) K/uL [place] # (0.0-0.8) K/uL Eos # (0.0-0.7) K/uL Baso # (0.0-0.2) K/uL Neutrophils % (Manual) (50-75) % Lymphocytes % (Manual) (20-40) % Monocytes % (Manual) (0-10) % Eosinophils % (Manual) (0-4) % Platelet Estimate (NORMAL) Polychromasia Hypochromasia (manual) Poikilocytosis (manual Anisocytosis (manual) Microcytosis (manual) Macrocytosis (manual) Target Cells Puncture Site R rad pCO2 44 (35-45) mm/Hg pO2 147 H (80-100) mm/Hg HCO3 29.6 H (21-28) mmol/L ABG pH 7.45 (7.35-7.45) ABG Total CO2 32.0 H (22-28) mmol/L ABG O2 Saturation 100.2 H (95-98) % ABG Base Excess 6.0 H (-2.0-3.0) mmol/L ABG Hemoglobin 7.4 L (11.7-17.4) g/dL ABG Carboxyhemoglobin 2.4 H (0.5-1.5) % POC ABG HHb (Measured) -0.2 L (0.0-5.0) % ABG Methemoglobin 0.8 (0.0-3.0) % Jasvir Test Pos A-a O2 Difference 155.0 mm/Hg Respiratory Index 1.1 Hgb O2 Saturation 97.0 (95.0-98.0) % Vent Mode Prvc Mechanical Rate 10 FiO2 50.0 % Tidal Volume 400 PEEP 5 Sodium 150 H (132-148) mmol/L Potassium 3.5 L (3.6-5.2) mmol/L Chloride 111 H (98-107) mmol/L Carbon Dioxide 25 (22-30) mmol/L Anion Gap 18 (10-20) BUN 50 H (7-17) mg/dL Creatinine 2.1 H (0.7-1.2) MG/DL Est GFR ( Amer) 28 Est GFR (Non-Af Amer) 23 POC Glucose (mg/dL) 265 H (65-110) mg/dL Random Glucose 257 H (65-105) mg/dL Calcium 7.6 L (8.6-10.4) mg/dl Phosphorus 2.9 (2.5-4.5) mg/dL Magnesium 1.8 (1.6-2.3) mg/dL Total Bilirubin 0.8 (0.2-1.3) mg/dL AST 51 H D (14-36) U/L ALT 54 H (9-52) U/L Alkaline Phosphatase 108 (38-126) U/L Total Protein 5.6 L (6.3-8.3) g/dL Albumin 2.7 L (3.5-5.0) g/dL Globulin 3.0 (2.2-3.9) gm/dL Albumin/Globulin Ratio 0.9 L (1.0-2.1) Urine Collection Time HRS Urine Total Volume mL Ur Protein 24 Hr Calc (42-225) mg/24hr 07/05/17 07/04/17 07/04/17 Range/Units 00:40 22:37 22:37 WBC 21.6 H (4.8-10.8) K/uL RBC 3.02 L (3.80-5.20) Mil/uL Hgb 7.9 L (11.0-16.0) g/dL Hct 26.3 L (34.0-47.0) % MCV 87.0 (81.0-99.0) fL MCH 26.2 L (27.0-31.0) pg MCHC 30.2 L (33.0-37.0) g/dL RDW 18.2 H (11.5-14.5) % Plt Count 153 (130-400) K/uL MPV 10.6 (7.2-11.7) fL Neut % (Auto) 80.7 H (50.0-75.0) % Lymph % (Auto) 12.2 L (20.0-40.0) % [place] % (Auto) 3.8 (0.0-10.0) % Eos % (Auto) 2.6 (0.0-4.0) % Baso % (Auto) 0.7 (0.0-2.0) % Neut # 17.4 H (1.8-7.0) K/uL Lymph # 2.6 (1.0-4.3) K/uL [place] # 0.8 (0.0-0.8) K/uL Eos # 0.6 (0.0-0.7) K/uL Baso # 0.1 (0.0-0.2) K/uL Neutrophils % (Manual) (50-75) % Lymphocytes % (Manual) (20-40) % Monocytes % (Manual) (0-10) % Eosinophils % (Manual) (0-4) % Platelet Estimate (NORMAL) Polychromasia Hypochromasia (manual) Poikilocytosis (manual Anisocytosis (manual) Microcytosis (manual) Macrocytosis (manual) Target Cells Puncture Site pCO2 (35-45) mm/Hg pO2 (80-100) mm/Hg HCO3 (21-28) mmol/L ABG pH (7.35-7.45) ABG Total CO2 (22-28) mmol/L ABG O2 Saturation (95-98) % ABG Base Excess (-2.0-3.0) mmol/L ABG Hemoglobin (11.7-17.4) g/dL ABG Carboxyhemoglobin (0.5-1.5) % POC ABG HHb (Measured) (0.0-5.0) % ABG Methemoglobin (0.0-3.0) % Jasvir Test A-a O2 Difference mm/Hg Respiratory Index Hgb O2 Saturation (95.0-98.0) % Vent Mode Mechanical Rate FiO2 % Tidal Volume PEEP Sodium 147 (132-148) mmol/L Potassium 3.6 (3.6-5.2) mmol/L Chloride 108 H (98-107) mmol/L Carbon Dioxide 25 (22-30) mmol/L Anion Gap 18 (10-20) BUN 48 H (7-17) mg/dL Creatinine 2.3 H (0.7-1.2) MG/DL Est GFR ( Amer) 25 Est GFR (Non-Af Amer) 21 POC Glucose (mg/dL) 269 H (65-110) mg/dL Random Glucose 272 H (65-105) mg/dL Calcium 7.9 L (8.6-10.4) mg/dl Phosphorus (2.5-4.5) mg/dL Magnesium 1.8 (1.6-2.3) mg/dL Total Bilirubin 1.0 (0.2-1.3) mg/dL AST 66 H (14-36) U/L ALT 61 H (9-52) U/L Alkaline Phosphatase 120 (38-126) U/L Total Protein 6.0 L (6.3-8.3) g/dL Albumin 3.0 L (3.5-5.0) g/dL Globulin 3.0 (2.2-3.9) gm/dL Albumin/Globulin Ratio 1.0 (1.0-2.1) Urine Collection Time HRS Urine Total Volume mL Ur Protein 24 Hr Calc (42-225) mg/24hr 07/04/17 Range/Units 17:46 WBC (4.8-10.8) K/uL RBC (3.80-5.20) Mil/uL Hgb (11.0-16.0) g/dL Hct (34.0-47.0) % MCV (81.0-99.0) fL MCH (27.0-31.0) pg MCHC (33.0-37.0) g/dL RDW (11.5-14.5) % Plt Count (130-400) K/uL MPV (7.2-11.7) fL Neut % (Auto) (50.0-75.0) % Lymph % (Auto) (20.0-40.0) % [place] % (Auto) (0.0-10.0) % Eos % (Auto) (0.0-4.0) % Baso % (Auto) (0.0-2.0) % Neut # (1.8-7.0) K/uL Lymph # (1.0-4.3) K/uL [place] # (0.0-0.8) K/uL Eos # (0.0-0.7) K/uL Baso # (0.0-0.2) K/uL Neutrophils % (Manual) (50-75) % Lymphocytes % (Manual) (20-40) % Monocytes % (Manual) (0-10) % Eosinophils % (Manual) (0-4) % Platelet Estimate (NORMAL) Polychromasia Hypochromasia (manual) Poikilocytosis (manual Anisocytosis (manual) Microcytosis (manual) Macrocytosis (manual) Target Cells Puncture Site pCO2 (35-45) mm/Hg pO2 (80-100) mm/Hg HCO3 (21-28) mmol/L ABG pH (7.35-7.45) ABG Total CO2 (22-28) mmol/L ABG O2 Saturation (95-98) % ABG Base Excess (-2.0-3.0) mmol/L ABG Hemoglobin (11.7-17.4) g/dL ABG Carboxyhemoglobin (0.5-1.5) % POC ABG HHb (Measured) (0.0-5.0) % ABG Methemoglobin (0.0-3.0) % Jasvir Test A-a O2 Difference mm/Hg Respiratory Index Hgb O2 Saturation (95.0-98.0) % Vent Mode Mechanical Rate FiO2 % Tidal Volume PEEP Sodium (132-148) mmol/L Potassium (3.6-5.2) mmol/L Chloride (98-107) mmol/L Carbon Dioxide (22-30) mmol/L Anion Gap (10-20) BUN (7-17) mg/dL Creatinine (0.7-1.2) MG/DL Est GFR ( Amer) Est GFR (Non-Af Amer) POC Glucose (mg/dL) 236 H (65-110) mg/dL Random Glucose (65-105) mg/dL Calcium (8.6-10.4) mg/dl Phosphorus (2.5-4.5) mg/dL Magnesium (1.6-2.3) mg/dL Total Bilirubin (0.2-1.3) mg/dL AST (14-36) U/L ALT (9-52) U/L Alkaline Phosphatase (38-126) U/L Total Protein (6.3-8.3) g/dL Albumin (3.5-5.0) g/dL Globulin (2.2-3.9) gm/dL Albumin/Globulin Ratio (1.0-2.1) Urine Collection Time HRS Urine Total Volume mL Ur Protein 24 Hr Calc (42-225) mg/24hr Laboratory Results - last 24 hr 07/04/17 07/04/17 07/04/17 17:46 22:37 22:37 WBC 21.6 H RBC 3.02 L Hgb 7.9 L Hct 26.3 L MCV 87.0 MCH 26.2 L MCHC 30.2 L RDW 18.2 H Plt Count 153 MPV 10.6 Neut % (Auto) 80.7 H Lymph % (Auto) 12.2 L [place] % (Auto) 3.8 Eos % (Auto) 2.6 Baso % (Auto) 0.7 Neut # 17.4 H Lymph # 2.6 [place] # 0.8 Eos # 0.6 Baso # 0.1 Neutrophils % (Manual) Lymphocytes % (Manual) Monocytes % (Manual) Eosinophils % (Manual) Platelet Estimate Polychromasia Hypochromasia (manual) Poikilocytosis (manual Anisocytosis (manual) Microcytosis (manual) Macrocytosis (manual) Target Cells Puncture Site pCO2 pO2 HCO3 ABG pH ABG Total CO2 ABG O2 Saturation ABG Base Excess ABG Hemoglobin ABG Carboxyhemoglobin POC ABG HHb (Measured) ABG Methemoglobin Jasvir Test A-a O2 Difference Respiratory Index Hgb O2 Saturation Vent Mode Mechanical Rate FiO2 Tidal Volume PEEP Sodium 147 Potassium 3.6 Chloride 108 H Carbon Dioxide 25 Anion Gap 18 BUN 48 H Creatinine 2.3 H Est GFR ( Amer) 25 Est GFR (Non-Af Amer) 21 POC Glucose (mg/dL) 236 H Random Glucose 272 H Calcium 7.9 L Phosphorus Magnesium 1.8 Total Bilirubin 1.0 AST 66 H ALT 61 H Alkaline Phosphatase 120 Total Protein 6.0 L Albumin 3.0 L Globulin 3.0 Albumin/Globulin Ratio 1.0 Urine Collection Time Urine Total Volume Ur Protein 24 Hr Calc 07/05/17 07/05/17 07/05/17 00:40 05:02 06:13 WBC RBC Hgb Hct MCV MCH MCHC RDW Plt Count MPV Neut % (Auto) Lymph % (Auto) [place] % (Auto) Eos % (Auto) Baso % (Auto) Neut # Lymph # [place] # Eos # Baso # Neutrophils % (Manual) Lymphocytes % (Manual) Monocytes % (Manual) Eosinophils % (Manual) Platelet Estimate Polychromasia Hypochromasia (manual) Poikilocytosis (manual Anisocytosis (manual) Microcytosis (manual) Macrocytosis (manual) Target Cells Puncture Site R rad pCO2 44 pO2 147 H HCO3 29.6 H ABG pH 7.45 ABG Total CO2 32.0 H ABG O2 Saturation 100.2 H ABG Base Excess 6.0 H ABG Hemoglobin 7.4 L ABG Carboxyhemoglobin 2.4 H POC ABG HHb (Measured) -0.2 L ABG Methemoglobin 0.8 Jasvir Test Pos A-a O2 Difference 155.0 Respiratory Index 1.1 Hgb O2 Saturation 97.0 Vent Mode Prvc Mechanical Rate 10 FiO2 50.0 Tidal Volume 400 PEEP 5 Sodium Potassium Chloride Carbon Dioxide Anion Gap BUN Creatinine Est GFR ( Amer) Est GFR (Non-Af Amer) POC Glucose (mg/dL) 269 H 265 H Random Glucose Calcium Phosphorus Magnesium Total Bilirubin AST ALT Alkaline Phosphatase Total Protein Albumin Globulin Albumin/Globulin Ratio Urine Collection Time Urine Total Volume Ur Protein 24 Hr Calc 07/05/17 07/05/17 07/05/17 06:36 06:38 07:23 WBC 19.0 H RBC 2.67 L Hgb 7.1 L Hct 22.9 L MCV 85.8 MCH 26.4 L MCHC 30.8 L RDW 18.1 H Plt Count 152 MPV 11.2 Neut % (Auto) 83.6 H Lymph % (Auto) 9.9 L [place] % (Auto) 3.6 Eos % (Auto) 2.1 Baso % (Auto) 0.8 Neut # 15.9 H Lymph # 1.9 [place] # 0.7 Eos # 0.4 Baso # 0.1 Neutrophils % (Manual) 85 H Lymphocytes % (Manual) 8 L Monocytes % (Manual) 4 Eosinophils % (Manual) 3 Platelet Estimate Normal Polychromasia Slight Hypochromasia (manual) Moderate Poikilocytosis (manual Slight Anisocytosis (manual) Slight Microcytosis (manual) Slight Macrocytosis (manual) Slight Target Cells Slight Puncture Site pCO2 pO2 HCO3 ABG pH ABG Total CO2 ABG O2 Saturation ABG Base Excess ABG Hemoglobin ABG Carboxyhemoglobin POC ABG HHb (Measured) ABG Methemoglobin Jasvir Test A-a O2 Difference Respiratory Index Hgb O2 Saturation Vent Mode Mechanical Rate FiO2 Tidal Volume PEEP Sodium 150 H Potassium 3.5 L Chloride 111 H Carbon Dioxide 25 Anion Gap 18 BUN 50 H Creatinine 2.1 H Est GFR ( Amer) 28 Est GFR (Non-Af Amer) 23 POC Glucose (mg/dL) Random Glucose 257 H Calcium 7.6 L Phosphorus 2.9 Magnesium 1.8 Total Bilirubin 0.8 AST 51 H D ALT 54 H Alkaline Phosphatase 108 Total Protein 5.6 L Albumin 2.7 L Globulin 3.0 Albumin/Globulin Ratio 0.9 L Urine Collection Time 24 Urine Total Volume 775 Ur Protein 24 Hr Calc 689.8 H 07/05/17 12:22 WBC RBC Hgb Hct MCV MCH MCHC RDW Plt Count MPV Neut % (Auto) Lymph % (Auto) [place] % (Auto) Eos % (Auto) Baso % (Auto) Neut # Lymph # [place] # Eos # Baso # Neutrophils % (Manual) Lymphocytes % (Manual) Monocytes % (Manual) Eosinophils % (Manual) Platelet Estimate Polychromasia Hypochromasia (manual) Poikilocytosis (manual Anisocytosis (manual) Microcytosis (manual) Macrocytosis (manual) Target Cells Puncture Site pCO2 pO2 HCO3 ABG pH ABG Total CO2 ABG O2 Saturation ABG Base Excess ABG Hemoglobin ABG Carboxyhemoglobin POC ABG HHb (Measured) ABG Methemoglobin Jasvir Test A-a O2 Difference Respiratory Index Hgb O2 Saturation Vent Mode Mechanical Rate FiO2 Tidal Volume PEEP Sodium Potassium Chloride Carbon Dioxide Anion Gap BUN Creatinine Est GFR ( Amer) Est GFR (Non-Af Amer) POC Glucose (mg/dL) 306 H Random Glucose Calcium Phosphorus Magnesium Total Bilirubin AST ALT Alkaline Phosphatase Total Protein Albumin Globulin Albumin/Globulin Ratio Urine Collection Time Urine Total Volume Ur Protein 24 Hr Calc <Eb Iverson R - Last Filed: 07/05/17 19:35> CCU Subjective - Physician Review Subjective (Free Text): Patient was seen and examined at bedside in the morning. Patient is sedated and intubated, review of systems was not obtainable. 07/05/17 19:32 CCU Objective - Vital Signs / Intake & Output Vital Signs (Last 4 hours): Vital Signs Temp Pulse Resp BP Pulse Ox 07/05/17 12:00 99.0 F 76 22 100 07/05/17 11:36 74 22 131/56 L 100 07/05/17 11:11 123/68 07/05/17 11:00 128 H 23 100 07/05/17 10:37 124 H 21 123/68 100 07/05/17 10:00 116 H 22 100 07/05/17 09:36 79 26 H 138/54 L 100 Intake and Output (Last 8hrs): Intake & Output 07/04/17 07/05/17 07/05/17 22:59 06:59 14:59 Intake Total 495.0 427.3 619.0 Output Total 290 215 370 Balance 205.0 212.3 249.0 Weight 139 lb 15.896 oz Intake: IV 42 58 Intake, IV Amount 178.0 79.3 279.0 Right Antecubital 132.8 33.2 0 Right Forearm 22.0 0 250 Right Hand 23.2 46.1 29.0 Oral 100 Tube Feeding 275 290 240 Output: Urine 290 215 370 Urethral (Neff) 290 215 370 Other: # Bowel Movements 0 0 - Physical Exam Head: Positive for: Atraumatic, Normocephalic Extroacular Muscles: Positive for: EOMI Mouth: Positive for: Moist Mucous Membranes Respiratory/Chest: Positive for: Clear to Auscultation. Negative for: Wheezes, Rales, Rhonchi Cardiovascular: Positive for: Normal S1, S2, Irregular Rhythm, Tachycardic. Negative for: Bradycardic Abdomen: Positive for: Distention, Normal Bowel Sounds. Negative for: Tenderness Upper Extremity: Positive for: Normal Inspection. Negative for: Edema Lower Extremity: Positive for: Normal Inspection. Negative for: Edema Skin: Positive for: Warm, Dry, Normal Color Psychiatric: Positive for: Alert, Lethargic - Medications Active Medications: Active Medications Generic Name Dose Route Start Last Admin Trade Name Freq PRN Reason Stop Dose Admin Albuterol/Ipratropium 3 ml 07/04/17 08:00 07/05/17 07:43 Duoneb 3 Mg/0.5 Mg (3 Ml) Ud INH 3 ml RQ6 ASIM Administration Amiodarone HCl 200 mg 07/04/17 23:15 07/05/17 09:27 Cordarone PO 200 mg BID ASIM Administration Famotidine 20 mg 06/26/17 10:00 07/05/17 09:27 Pepcid IVP 20 mg DAILY ASIM Administration Piperacillin Sod/Tazobactam Sod 2.25 gm in 50 mls @ 100 mls/hr 06/26/17 09:00 07/05/17 09:27 Zosyn 2.25 Gm Iv Premix IVPB 100 mls/hr Q8H ASIM Administration Vancomycin/Sodium Chloride 1 gm in 200 mls @ 133.333 mls/hr 06/27/17 12:00 13:00 Vancocin IVPB Not Given Q24H ASIM Heparin Sodium/Sodium Chloride 25,000 units in 250 mls @ 7.947 mls/hr 08:36 07/03/17 01:42 Heparin 09963 Units/250ml 1/2 Normal Saline IV 12 units/kg/hr .Q24H PRN 7.947 mls/hr TITRATE PER PROTOCOL Administration Protocol 12 UNITS/KG/HR Propofol 1,000 mg in 100 mls @ 1.926 mls/hr 07/03/17 09:24 07/05/17 01:48 Diprivan IV 15 mcg/kg/min .Q24H PRN 5.779 mls/hr TITRATE PER MD ORDER Administration Protocol 5 MCG/KG/MIN Micafungin Sodium 100 mg/ 100 mls @ 100 mls/hr 07/04/17 20:00 07/04/17 22:22 Sodium Chloride IV 100 mls/hr Q24H ASIM Administration Insulin Human Regular 0 unit 06/27/17 13:02 07/05/17 12:32 Novolin R SC 6 unit Q6 ASIM Administration Protocol Lorazepam 2 mg 07/03/17 09:24 07/04/17 14:43 Ativan IVP 2 mg Q6H PRN Administration Anxiety Metoprolol Tartrate 25 mg 07/05/17 22:00 Lopressor PO Q12 ASIM - Patient Studies Lab Studies: Microbiology Studies 07/03/17 Unknown Gram Stain - Final Trachasp Sputum Culture - Final NORMAL ORAL STEPHANIE 07/03/17 09:30 Blood Culture - Preliminary Blood-Venous NO GROWTH AFTER 48 HOURS 07/03/17 Unknown Urine Culture - Final Urine,Catheterized Yeast Species Lab Studies 07/05/17 07/05/17 07/05/17 Range/Units 12:22 07:23 06:38 WBC 19.0 H (4.8-10.8) K/uL RBC 2.67 L (3.80-5.20) Mil/uL Hgb 7.1 L (11.0-16.0) g/dL Hct 22.9 L (34.0-47.0) % MCV 85.8 (81.0-99.0) fL MCH 26.4 L (27.0-31.0) pg MCHC 30.8 L (33.0-37.0) g/dL RDW 18.1 H (11.5-14.5) % Plt Count 152 (130-400) K/uL MPV 11.2 (7.2-11.7) fL Neut % (Auto) 83.6 H (50.0-75.0) % Lymph % (Auto) 9.9 L (20.0-40.0) % [place] % (Auto) 3.6 (0.0-10.0) % Eos % (Auto) 2.1 (0.0-4.0) % Baso % (Auto) 0.8 (0.0-2.0) % Neut # 15.9 H (1.8-7.0) K/uL Lymph # 1.9 (1.0-4.3) K/uL [place] # 0.7 (0.0-0.8) K/uL Eos # 0.4 (0.0-0.7) K/uL Baso # 0.1 (0.0-0.2) K/uL Neutrophils % (Manual) 85 H (50-75) % Lymphocytes % (Manual) 8 L (20-40) % Monocytes % (Manual) 4 (0-10) % Eosinophils % (Manual) 3 (0-4) % Platelet Estimate Normal (NORMAL) Polychromasia Slight Hypochromasia (manual) Moderate Poikilocytosis (manual Slight Anisocytosis (manual) Slight Microcytosis (manual) Slight Macrocytosis (manual) Slight Target Cells Slight Puncture Site pCO2 (35-45) mm/Hg pO2 (80-100) mm/Hg HCO3 (21-28) mmol/L ABG pH (7.35-7.45) ABG Total CO2 (22-28) mmol/L ABG O2 Saturation (95-98) % ABG Base Excess (-2.0-3.0) mmol/L ABG Hemoglobin (11.7-17.4) g/dL ABG Carboxyhemoglobin (0.5-1.5) % POC ABG HHb (Measured) (0.0-5.0) % ABG Methemoglobin (0.0-3.0) % Jasvir Test A-a O2 Difference mm/Hg Respiratory Index Hgb O2 Saturation (95.0-98.0) % Vent Mode Mechanical Rate FiO2 % Tidal Volume PEEP Sodium (132-148) mmol/L Potassium (3.6-5.2) mmol/L Chloride (98-107) mmol/L Carbon Dioxide (22-30) mmol/L Anion Gap (10-20) BUN (7-17) mg/dL Creatinine (0.7-1.2) MG/DL Est GFR ( Amer) Est GFR (Non-Af Amer) POC Glucose (mg/dL) 306 H (65-110) mg/dL Random Glucose (65-105) mg/dL Calcium (8.6-10.4) mg/dl Phosphorus (2.5-4.5) mg/dL Magnesium (1.6-2.3) mg/dL Total Bilirubin (0.2-1.3) mg/dL AST (14-36) U/L ALT (9-52) U/L Alkaline Phosphatase (38-126) U/L Total Protein (6.3-8.3) g/dL Albumin (3.5-5.0) g/dL Globulin (2.2-3.9) gm/dL Albumin/Globulin Ratio (1.0-2.1) Urine Collection Time 24 HRS Urine Total Volume 775 mL Ur Protein 24 Hr Calc 689.8 H (42-225) mg/24hr 07/05/17 07/05/17 07/05/17 Range/Units 06:36 06:13 05:02 WBC (4.8-10.8) K/uL RBC (3.80-5.20) Mil/uL Hgb (11.0-16.0) g/dL Hct (34.0-47.0) % MCV (81.0-99.0) fL MCH (27.0-31.0) pg MCHC (33.0-37.0) g/dL RDW (11.5-14.5) % Plt Count (130-400) K/uL MPV (7.2-11.7) fL Neut % (Auto) (50.0-75.0) % Lymph % (Auto) (20.0-40.0) % [place] % (Auto) (0.0-10.0) % Eos % (Auto) (0.0-4.0) % Baso % (Auto) (0.0-2.0) % Neut # (1.8-7.0) K/uL Lymph # (1.0-4.3) K/uL [place] # (0.0-0.8) K/uL Eos # (0.0-0.7) K/uL Baso # (0.0-0.2) K/uL Neutrophils % (Manual) (50-75) % Lymphocytes % (Manual) (20-40) % Monocytes % (Manual) (0-10) % Eosinophils % (Manual) (0-4) % Platelet Estimate (NORMAL) Polychromasia Hypochromasia (manual) Poikilocytosis (manual Anisocytosis (manual) Microcytosis (manual) Macrocytosis (manual) Target Cells Puncture Site R rad pCO2 44 (35-45) mm/Hg pO2 147 H (80-100) mm/Hg HCO3 29.6 H (21-28) mmol/L ABG pH 7.45 (7.35-7.45) ABG Total CO2 32.0 H (22-28) mmol/L ABG O2 Saturation 100.2 H (95-98) % ABG Base Excess 6.0 H (-2.0-3.0) mmol/L ABG Hemoglobin 7.4 L (11.7-17.4) g/dL ABG Carboxyhemoglobin 2.4 H (0.5-1.5) % POC ABG HHb (Measured) -0.2 L (0.0-5.0) % ABG Methemoglobin 0.8 (0.0-3.0) % Jasvir Test Pos A-a O2 Difference 155.0 mm/Hg Respiratory Index 1.1 Hgb O2 Saturation 97.0 (95.0-98.0) % Vent Mode Prvc Mechanical Rate 10 FiO2 50.0 % Tidal Volume 400 PEEP 5 Sodium 150 H (132-148) mmol/L Potassium 3.5 L (3.6-5.2) mmol/L Chloride 111 H (98-107) mmol/L Carbon Dioxide 25 (22-30) mmol/L Anion Gap 18 (10-20) BUN 50 H (7-17) mg/dL Creatinine 2.1 H (0.7-1.2) MG/DL Est GFR ( Amer) 28 Est GFR (Non-Af Amer) 23 POC Glucose (mg/dL) 265 H (65-110) mg/dL Random Glucose 257 H (65-105) mg/dL Calcium 7.6 L (8.6-10.4) mg/dl Phosphorus 2.9 (2.5-4.5) mg/dL Magnesium 1.8 (1.6-2.3) mg/dL Total Bilirubin 0.8 (0.2-1.3) mg/dL AST 51 H D (14-36) U/L ALT 54 H (9-52) U/L Alkaline Phosphatase 108 (38-126) U/L Total Protein 5.6 L (6.3-8.3) g/dL Albumin 2.7 L (3.5-5.0) g/dL Globulin 3.0 (2.2-3.9) gm/dL Albumin/Globulin Ratio 0.9 L (1.0-2.1) Urine Collection Time HRS Urine Total Volume mL Ur Protein 24 Hr Calc (42-225) mg/24hr 07/05/17 07/04/17 07/04/17 Range/Units 00:40 22:37 22:37 WBC 21.6 H (4.8-10.8) K/uL RBC 3.02 L (3.80-5.20) Mil/uL Hgb 7.9 L (11.0-16.0) g/dL Hct 26.3 L (34.0-47.0) % MCV 87.0 (81.0-99.0) fL MCH 26.2 L (27.0-31.0) pg MCHC 30.2 L (33.0-37.0) g/dL RDW 18.2 H (11.5-14.5) % Plt Count 153 (130-400) K/uL MPV 10.6 (7.2-11.7) fL Neut % (Auto) 80.7 H (50.0-75.0) % Lymph % (Auto) 12.2 L (20.0-40.0) % [place] % (Auto) 3.8 (0.0-10.0) % Eos % (Auto) 2.6 (0.0-4.0) % Baso % (Auto) 0.7 (0.0-2.0) % Neut # 17.4 H (1.8-7.0) K/uL Lymph # 2.6 (1.0-4.3) K/uL [place] # 0.8 (0.0-0.8) K/uL Eos # 0.6 (0.0-0.7) K/uL Baso # 0.1 (0.0-0.2) K/uL Neutrophils % (Manual) (50-75) % Lymphocytes % (Manual) (20-40) % Monocytes % (Manual) (0-10) % Eosinophils % (Manual) (0-4) % Platelet Estimate (NORMAL) Polychromasia Hypochromasia (manual) Poikilocytosis (manual Anisocytosis (manual) Microcytosis (manual) Macrocytosis (manual) Target Cells Puncture Site pCO2 (35-45) mm/Hg pO2 (80-100) mm/Hg HCO3 (21-28) mmol/L ABG pH (7.35-7.45) ABG Total CO2 (22-28) mmol/L ABG O2 Saturation (95-98) % ABG Base Excess (-2.0-3.0) mmol/L ABG Hemoglobin (11.7-17.4) g/dL ABG Carboxyhemoglobin (0.5-1.5) % POC ABG HHb (Measured) (0.0-5.0) % ABG Methemoglobin (0.0-3.0) % Jasvir Test A-a O2 Difference mm/Hg Respiratory Index Hgb O2 Saturation (95.0-98.0) % Vent Mode Mechanical Rate FiO2 % Tidal Volume PEEP Sodium 147 (132-148) mmol/L Potassium 3.6 (3.6-5.2) mmol/L Chloride 108 H (98-107) mmol/L Carbon Dioxide 25 (22-30) mmol/L Anion Gap 18 (10-20) BUN 48 H (7-17) mg/dL Creatinine 2.3 H (0.7-1.2) MG/DL Est GFR ( Amer) 25 Est GFR (Non-Af Amer) 21 POC Glucose (mg/dL) 269 H (65-110) mg/dL Random Glucose 272 H (65-105) mg/dL Calcium 7.9 L (8.6-10.4) mg/dl Phosphorus (2.5-4.5) mg/dL Magnesium 1.8 (1.6-2.3) mg/dL Total Bilirubin 1.0 (0.2-1.3) mg/dL AST 66 H (14-36) U/L ALT 61 H (9-52) U/L Alkaline Phosphatase 120 (38-126) U/L Total Protein 6.0 L (6.3-8.3) g/dL Albumin 3.0 L (3.5-5.0) g/dL Globulin 3.0 (2.2-3.9) gm/dL Albumin/Globulin Ratio 1.0 (1.0-2.1) Urine Collection Time HRS Urine Total Volume mL Ur Protein 24 Hr Calc (42-225) mg/24hr 07/04/17 07/04/17 Range/Units 17:46 14:59 WBC 25.9 H (4.8-10.8) K/uL RBC 2.71 L (3.80-5.20) Mil/uL Hgb 7.1 L (11.0-16.0) g/dL Hct 23.4 L (34.0-47.0) % MCV 86.1 (81.0-99.0) fL MCH 26.2 L (27.0-31.0) pg MCHC 30.5 L (33.0-37.0) g/dL RDW 18.3 H (11.5-14.5) % Plt Count 163 (130-400) K/uL MPV 10.5 (7.2-11.7) fL Neut % (Auto) 77.9 H (50.0-75.0) % Lymph % (Auto) 16.3 L (20.0-40.0) % [place] % (Auto) 3.6 (0.0-10.0) % Eos % (Auto) 1.6 (0.0-4.0) % Baso % (Auto) 0.6 (0.0-2.0) % Neut # 20.2 H (1.8-7.0) K/uL Lymph # 4.2 (1.0-4.3) K/uL [place] # 0.9 H (0.0-0.8) K/uL Eos # 0.4 (0.0-0.7) K/uL Baso # 0.1 (0.0-0.2) K/uL Neutrophils % (Manual) (50-75) % Lymphocytes % (Manual) (20-40) % Monocytes % (Manual) (0-10) % Eosinophils % (Manual) (0-4) % Platelet Estimate (NORMAL) Polychromasia Hypochromasia (manual) Poikilocytosis (manual Anisocytosis (manual) Microcytosis (manual) Macrocytosis (manual) Target Cells Puncture Site pCO2 (35-45) mm/Hg pO2 (80-100) mm/Hg HCO3 (21-28) mmol/L ABG pH (7.35-7.45) ABG Total CO2 (22-28) mmol/L ABG O2 Saturation (95-98) % ABG Base Excess (-2.0-3.0) mmol/L ABG Hemoglobin (11.7-17.4) g/dL ABG Carboxyhemoglobin (0.5-1.5) % POC ABG HHb (Measured) (0.0-5.0) % ABG Methemoglobin (0.0-3.0) % Jasvir Test A-a O2 Difference mm/Hg Respiratory Index Hgb O2 Saturation (95.0-98.0) % Vent Mode Mechanical Rate FiO2 % Tidal Volume PEEP Sodium (132-148) mmol/L Potassium (3.6-5.2) mmol/L Chloride (98-107) mmol/L Carbon Dioxide (22-30) mmol/L Anion Gap (10-20) BUN (7-17) mg/dL Creatinine (0.7-1.2) MG/DL Est GFR ( Amer) Est GFR (Non-Af Amer) POC Glucose (mg/dL) 236 H (65-110) mg/dL Random Glucose (65-105) mg/dL Calcium (8.6-10.4) mg/dl Phosphorus (2.5-4.5) mg/dL Magnesium (1.6-2.3) mg/dL Total Bilirubin (0.2-1.3) mg/dL AST (14-36) U/L ALT (9-52) U/L Alkaline Phosphatase (38-126) U/L Total Protein (6.3-8.3) g/dL Albumin (3.5-5.0) g/dL Globulin (2.2-3.9) gm/dL Albumin/Globulin Ratio (1.0-2.1) Urine Collection Time HRS Urine Total Volume mL Ur Protein 24 Hr Calc (42-225) mg/24hr Laboratory Results - last 24 hr 07/04/17 07/04/17 07/04/17 14:59 17:46 22:37 WBC 25.9 H 21.6 H RBC 2.71 L 3.02 L Hgb 7.1 L 7.9 L Hct 23.4 L 26.3 L MCV 86.1 87.0 MCH 26.2 L 26.2 L MCHC 30.5 L 30.2 L RDW 18.3 H 18.2 H Plt Count 163 153 MPV 10.5 10.6 Neut % (Auto) 77.9 H 80.7 H Lymph % (Auto) 16.3 L 12.2 L [place] % (Auto) 3.6 3.8 Eos % (Auto) 1.6 2.6 Baso % (Auto) 0.6 0.7 Neut # 20.2 H 17.4 H Lymph # 4.2 2.6 [place] # 0.9 H 0.8 Eos # 0.4 0.6 Baso # 0.1 0.1 Neutrophils % (Manual) Lymphocytes % (Manual) Monocytes % (Manual) Eosinophils % (Manual) Platelet Estimate Polychromasia Hypochromasia (manual) Poikilocytosis (manual Anisocytosis (manual) Microcytosis (manual) Macrocytosis (manual) Target Cells Puncture Site pCO2 pO2 HCO3 ABG pH ABG Total CO2 ABG O2 Saturation ABG Base Excess ABG Hemoglobin ABG Carboxyhemoglobin POC ABG HHb (Measured) ABG Methemoglobin Jasvir Test A-a O2 Difference Respiratory Index Hgb O2 Saturation Vent Mode Mechanical Rate FiO2 Tidal Volume PEEP Sodium Potassium Chloride Carbon Dioxide Anion Gap BUN Creatinine Est GFR ( Amer) Est GFR (Non-Af Amer) POC Glucose (mg/dL) 236 H Random Glucose Calcium Phosphorus Magnesium Total Bilirubin AST ALT Alkaline Phosphatase Total Protein Albumin Globulin Albumin/Globulin Ratio Urine Collection Time Urine Total Volume Ur Protein 24 Hr Calc 07/04/17 07/05/17 07/05/17 22:37 00:40 05:02 WBC RBC Hgb Hct MCV MCH MCHC RDW Plt Count MPV Neut % (Auto) Lymph % (Auto) [place] % (Auto) Eos % (Auto) Baso % (Auto) Neut # Lymph # [place] # Eos # Baso # Neutrophils % (Manual) Lymphocytes % (Manual) Monocytes % (Manual) Eosinophils % (Manual) Platelet Estimate Polychromasia Hypochromasia (manual) Poikilocytosis (manual Anisocytosis (manual) Microcytosis (manual) Macrocytosis (manual) Target Cells Puncture Site R rad pCO2 44 pO2 147 H HCO3 29.6 H ABG pH 7.45 ABG Total CO2 32.0 H ABG O2 Saturation 100.2 H ABG Base Excess 6.0 H ABG Hemoglobin 7.4 L ABG Carboxyhemoglobin 2.4 H POC ABG HHb (Measured) -0.2 L ABG Methemoglobin 0.8 Jasvir Test Pos A-a O2 Difference 155.0 Respiratory Index 1.1 Hgb O2 Saturation 97.0 Vent Mode Prvc Mechanical Rate 10 FiO2 50.0 Tidal Volume 400 PEEP 5 Sodium 147 Potassium 3.6 Chloride 108 H Carbon Dioxide 25 Anion Gap 18 BUN 48 H Creatinine 2.3 H Est GFR ( Amer) 25 Est GFR (Non-Af Amer) 21 POC Glucose (mg/dL) 269 H Random Glucose 272 H Calcium 7.9 L Phosphorus Magnesium 1.8 Total Bilirubin 1.0 AST 66 H ALT 61 H Alkaline Phosphatase 120 Total Protein 6.0 L Albumin 3.0 L Globulin 3.0 Albumin/Globulin Ratio 1.0 Urine Collection Time Urine Total Volume Ur Protein 24 Hr Calc 08/29/17 08/29/17 08/29/17 06:13 06:36 06:38 WBC 19.0 H RBC 2.67 L Hgb 7.1 L Hct 22.9 L MCV 85.8 MCH 26.4 L MCHC 30.8 L RDW 18.1 H Plt Count 152 MPV 11.2 Neut % (Auto) 83.6 H Lymph % (Auto) 9.9 L [place] % (Auto) 3.6 Eos % (Auto) 2.1 Baso % (Auto) 0.8 Neut # 15.9 H Lymph # 1.9 [place] # 0.7 Eos # 0.4 Baso # 0.1 Neutrophils % (Manual) 85 H Lymphocytes % (Manual) 8 L Monocytes % (Manual) 4 Eosinophils % (Manual) 3 Platelet Estimate Normal Polychromasia Slight Hypochromasia (manual) Moderate Poikilocytosis (manual Slight Anisocytosis (manual) Slight Microcytosis (manual) Slight Macrocytosis (manual) Slight Target Cells Slight Puncture Site pCO2 pO2 HCO3 ABG pH ABG Total CO2 ABG O2 Saturation ABG Base Excess ABG Hemoglobin ABG Carboxyhemoglobin POC ABG HHb (Measured) ABG Methemoglobin Jasvir Test A-a O2 Difference Respiratory Index Hgb O2 Saturation Vent Mode Mechanical Rate FiO2 Tidal Volume PEEP Sodium 150 H Potassium 3.5 L Chloride 111 H Carbon Dioxide 25 Anion Gap 18 BUN 50 H Creatinine 2.1 H Est GFR ( Amer) 28 Est GFR (Non-Af Amer) 23 POC Glucose (mg/dL) 265 H Random Glucose 257 H Calcium 7.6 L Phosphorus 2.9 Magnesium 1.8 Total Bilirubin 0.8 AST 51 H D ALT 54 H Alkaline Phosphatase 108 Total Protein 5.6 L Albumin 2.7 L Globulin 3.0 Albumin/Globulin Ratio 0.9 L Urine Collection Time Urine Total Volume Ur Protein 24 Hr Calc 07/05/17 07/05/17 07:23 12:22 WBC RBC Hgb Hct MCV MCH MCHC RDW Plt Count MPV Neut % (Auto) Lymph % (Auto) [place] % (Auto) Eos % (Auto) Baso % (Auto) Neut # Lymph # [place] # Eos # Baso # Neutrophils % (Manual) Lymphocytes % (Manual) Monocytes % (Manual) Eosinophils % (Manual) Platelet Estimate Polychromasia Hypochromasia (manual) Poikilocytosis (manual Anisocytosis (manual) Microcytosis (manual) Macrocytosis (manual) Target Cells Puncture Site pCO2 pO2 HCO3 ABG pH ABG Total CO2 ABG O2 Saturation ABG Base Excess ABG Hemoglobin ABG Carboxyhemoglobin POC ABG HHb (Measured) ABG Methemoglobin Jasvir Test A-a O2 Difference Respiratory Index Hgb O2 Saturation Vent Mode Mechanical Rate FiO2 Tidal Volume PEEP Sodium Potassium Chloride Carbon Dioxide Anion Gap BUN Creatinine Est GFR ( Amer) Est GFR (Non-Af Amer) POC Glucose (mg/dL) 306 H Random Glucose Calcium Phosphorus Magnesium Total Bilirubin AST ALT Alkaline Phosphatase Total Protein Albumin Globulin Albumin/Globulin Ratio Urine Collection Time 24 Urine Total Volume 775 Ur Protein 24 Hr Calc 689.8 H Fingerstick Blood Sugar Results: 306 Review of Systems - Review of Systems Systems not reviewed;Unavailable: Intubated Critical Care Progress Note - Vent Settings TIDAL VOLUME:: 400 RESP RATE:: 10 FIO2:: 50 PEEP:: 5 Assessment/Plan - Assessment and Plan (Free Text) Assessment: 77 year old female with history of HTN, DM, CAD, presented initially c/o chest pain. Patient had syncopal episode when BLS arrived and became diaphoretic and bradycardic. ALS arrived, patient had episode of vomiting, intubated for airway protection. Patient was severely anemic on presentation (Hgb 6.5), s/p prbc, 8.9. Patient had EDG 06/28/17, showed small hiatal hernia and acute gastritis. Patient was placed on CPAP trial and then extubated on 06/29/17. Patient c/o nausea and SOB post-extubation. Patient placed on BiPAP prn. Overnight, patient went into a-fib, started on cardizem drip and heparin drip. Patient converted to normal sinus rhythm, and cardizem drip was being tapered. In the afternoon, patient in afib, started on metoproplol, cardizem drip continued (06/30/17). Patient started on metoprolol and was given one dose of digoxin for afib, 07/01/17. Neuro: sedated - propofol 5 mcg/kg/min iv Pulm: - Patient was extubated on 06/29/17, on BiPAP, then reintubated on 07/03/17 - Acute respiratory failure with hypoxemia secondary to pulmonary edema - CXR: showing worsening infiltrative changes, likely pneumonia CV: NSTEMI - Troponin: 0.25, 3.11, 4.03, 2.84 (trending down) - Cardiology consulted: Dr. Arshad - As per Dr. Arshad, cannot do cardiac cath due to elevated Cr. - Off pressors - NS@100ml/hr - Echo: EF 35%; moderately impaired LV systolic function; mild hypokinesis of posterior wall; grade-II pseudonormal diastolic dysfunction; elevated LA pressure; mod dilated LA; Trace AR; Aortic valve mildly sclerotic. - A-fib, started on cardizem drip and heparin drip. - Started metoprolol 5mg IV Q6 - started amiodarone 0.5mg/min iv Endo: no acute issues - ISS GI: anemic - Hgb 6.5 on admission, transfused 2 units PRBC - GI consulted: Dr. Mendoza, help appreciated - EGD (06/28/17): small hiatal hernia, acute gastritis (biopsied) - EDG and colonoscopy in 02/2017, 5mm polyp resected; congested mucosa in descending colon, non-bleeding external, internal hemorrhoids. - Abd/Pelvic U/S: echogenic liver maybe in setting of hepatic parenchymal disease or fatty infiltration; b/l echogenic renal parenchyma maybe in setting of medical renal disease; 2.3x2.0x2.2cm right renal cyst - Monitor H/H Heme: anemic, s/p PRBC transfusionx2 - Hgb 6.5 on admission, transfused 2 units PRBC - Hgb 8.1 (06/28/17) - Monitor H/H Renal: - Nephrology consulted- Dr. 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
--- NOTE | 2017-07-05 14:08 | CP.PCM.PN ---
Subjective - Date & Time of Evaluation Date of Evaluation: 07/05/17 Time of Evaluation: 14:06 - Subjective Subjective: INTUBATED AND SEDATED A.FIB WITH MVR CXR APPEARS MORE ASPIRATION PNEUMONIA , ID ON BOARD TO D/W FAMILY THE PLAN AND TRACH Objective - Vital Signs/Intake and Output Vital Signs (last 24 hours): Temp Pulse Resp BP Pulse Ox 99.0 F 76 22 131/56 L 100 07/05/17 12:00 07/05/17 12:00 07/05/17 12:00 07/05/17 11:36 07/05/17 12:00 Intake and Output: 07/05/17 07/05/17 11:59 23:59 Intake Total 793.1 195.8 Output Total 450 100 Balance 343.1 95.8 - Medications Medications: Current Medications Albuterol/Ipratropium (Duoneb 3 Mg/0.5 Mg (3 Ml) Ud) 3 ml INH RQ6 [facility] Last Admin: 07/05/17 14:01 Dose: 3 ml Amiodarone HCl (Cordarone) 200 mg PO BID [facility] Last Admin: 07/05/17 09:27 Dose: 200 mg Famotidine (Pepcid) 20 mg IVP DAILY [facility] Last Admin: 07/05/17 09:27 Dose: 20 mg Piperacillin Sod/Tazobactam Sod (Zosyn 2.25 Gm Iv Premix) 2.25 gm in 50 mls @ 100 mls/hr IVPB Q8H [facility] Last Admin: 07/05/17 09:27 Dose: 100 mls/hr Vancomycin/Sodium Chloride (Vancocin) 1 gm in 200 mls @ 133.333 mls/hr IVPB Q24H [facility] Last Admin: 06/28/17 13:00 Dose: Not Given Heparin Sodium/Sodium Chloride (Heparin 81777 Units/250ml 1/2 Normal Saline) 25 ,000 units in 250 mls @ 7.947 mls/hr IV .Q24H PRN; Protocol; 12 UNITS/KG/HR PRN Reason: TITRATE PER PROTOCOL Last Admin: 07/03/17 01:42 Dose: 12 units/kg/hr, 7.947 mls/hr Propofol (Diprivan) 1,000 mg in 100 mls @ 1.926 mls/hr IV .Q24H PRN; Protocol; 5 MCG/KG/MIN PRN Reason: TITRATE PER MD ORDER Last Admin: 07/05/17 01:48 Dose: 15 mcg/kg/min, 5.779 mls/hr Micafungin Sodium 100 mg/ (Sodium Chloride) 100 mls @ 100 mls/hr IV Q24H [facility]IM Last Admin: 07/04/17 22:22 Dose: 100 mls/hr Insulin Human Regular (Novolin R) 0 unit SC Q6 ASIM PRN Reason: Protocol Last Admin: 07/05/17 12:32 Dose: 6 unit Lorazepam (Ativan) 2 mg IVP Q6H PRN PRN Reason: Anxiety Last Admin: 07/04/17 14:43 Dose: 2 mg Metoprolol Tartrate (Lopressor) 25 mg PO Q12 ASIM - Labs Labs: 07/05/17 06:38 07/05/17 06:36 PT 14.1 SECONDS (9.7-12.2) H 07/02/17 07:13 INR 1.3 07/02/17 07:13 APTT 49 SECONDS (21-34) H 07/03/17 06:20
[2017-07-05] MEDS: Vitamins A & D Oint UD Foilpak TOP SCH (17:06)
[2017-07-05] MEDS: Micafungin 100 MG in Sodium Chloride 0.9% 100 ML IV SCH (20:00)
[2017-07-06] MEDS: Piperacill/Tazo 2.25gm in Dex 2.25 GM/50 ML BAG IVPB SCH ×3 (01:00→17:21)
[2017-07-06] MEDS: Albuterol-Ipratrop 3 mg / 0.5 (3 ml) UD INH SCH ×4 (01:14→19:16)
[2017-07-06] MEDS: Propofol 10 mg/ml 1,000 MG/100 ML VIAL IV PRN ×2 (05:58→22:30)
[2017-07-06] MEDS: (Novolin R) Insulin Human Regular 100 units/ml vial SC SCH ×4 (06:00→18:08)
[2017-07-06 06:17] LABS: BASO # 0.1 K/uL (0.0-0.2); BASO % 0.5 % (0.0-2.0); EOS # 0.7 K/uL (0.0-0.7); HEMATOCRIT 21.3 % (34.0-47.0); LYMPH # 1.6 K/uL (1.0-4.3); LYMPH % 8.6 % (20.0-40.0); MEAN CELL VOLUME 85.9 fL (81.0-99.0); MEAN CORPUSCULAR HEMOGLOBIN 26.2 pg (27.0-31.0); MEAN CORPUSCULAR HGB CONC 30.5 g/dL (33.0-37.0); MEAN PLATELET VOLUME 11.2 fL (7.2-11.7); MONO # 0.7 K/uL (0.0-0.8); MONO % 3.5 % (0.0-10.0); NRBC % 0.1 % (0.0-2.0); PLATELET COUNT 142 K/uL (130-400); RED CELL DISTRIBUTION WIDTH 18.6 % (11.5-14.5); WHITE BLOOD COUNT 18.5 K/uL (4.8-10.8)
[2017-07-06 06:34] LABS: ALB/GLOB RATIO 1.1 (1.0-2.1); BILIRUBIN,TOTAL 0.6 mg/dL (0.2-1.3); CALCIUM 8.1 mg/dl (8.6-10.4); MAGNESIUM 1.9 mg/dL (1.6-2.3); PHOSPHOROUS 3.3 mg/dL (2.5-4.5); POTASSIUM 4.1 mmol/L (3.6-5.2); TOTAL PROTEIN 5.4 g/dL (6.3-8.3)
[2017-07-06 07:50] LABS: HEMATOCRIT 24.5 % (34.0-47.0); MEAN CELL VOLUME 85.3 fL (81.0-99.0); MEAN CORPUSCULAR HEMOGLOBIN 26.1 pg (27.0-31.0); MEAN CORPUSCULAR HGB CONC 30.5 g/dL (33.0-37.0); MEAN PLATELET VOLUME 10.8 fL (7.2-11.7); RED CELL DISTRIBUTION WIDTH 18.2 % (11.5-14.5); WHITE BLOOD COUNT 21.1 K/uL (4.8-10.8)
--- NOTE | 2017-07-06 08:21 | CP.CCUPN ---
<Eb Iverson - Last Filed: 07/06/17 13:42> CCU Subjective - Physician Review Subjective (Free Text): Patient was seen and examined at bedside in the morning. Patient on CPAP. Opens eyes to speech; with eye contact. Review of systems was not obtainable as patient on cpap and sedation. 07/06/17 14:03 CCU Objective - Vital Signs / Intake & Output Vital Signs (Last 4 hours): Vital Signs Pulse Resp BP Pulse Ox 07/06/17 06:00 70 19 100 07/06/17 05:36 71 18 147/56 L 100 07/06/17 05:00 73 22 91 L 07/06/17 04:36 72 20 133/48 L 100 Intake and Output (Last 8hrs): Intake & Output 07/05/17 07/06/17 07/06/17 22:59 06:59 14:59 Intake Total 1066.4 1270.8 Output Total 485 490 Balance 581.4 780.8 Intake: IV 100 100.0 Intake, IV Amount 146.4 100.8 Right Antecubital 0 Right Forearm 100 50 Right Hand 46.4 50.8 Oral 250 Tube Feeding 320 320 Other 250 750 Output: Urine 485 490 Urethral (Neff) 485 490 Other: # Bowel Movements 0 1 - Physical Exam Head: Positive for: Atraumatic, Normocephalic Extroacular Muscles: Positive for: EOMI Mouth: Positive for: Moist Mucous Membranes Respiratory/Chest: Positive for: Clear to Auscultation. Negative for: Wheezes, Rales, Rhonchi Cardiovascular: Positive for: Normal S1, S2, Irregular Rhythm, Tachycardic. Negative for: Bradycardic Abdomen: Positive for: Distention, Normal Bowel Sounds. Negative for: Tenderness Upper Extremity: Positive for: Normal Inspection. Negative for: Edema Lower Extremity: Positive for: Normal Inspection. Negative for: Edema Skin: Positive for: Warm, Dry, Normal Color Psychiatric: Positive for: Alert, Lethargic - Medications Active Medications: Active Medications Generic Name Dose Route Start Last Admin Trade Name Freq PRN Reason Stop Dose Admin Albuterol/Ipratropium 3 ml 07/04/17 08:00 07/06/17 07:39 Duoneb 3 Mg/0.5 Mg (3 Ml) Ud INH 3 ml RQ6 ASIM Administration Amiodarone HCl 200 mg 07/04/17 23:15 07/05/17 17:06 Cordarone PO 200 mg BID ASIM Administration Famotidine 20 mg 06/26/17 10:00 07/05/17 09:27 Pepcid IVP 20 mg DAILY ASIM Administration Piperacillin Sod/Tazobactam Sod 2.25 gm in 50 mls @ 100 mls/hr 06/26/17 09:00 07/06/17 01:00 Zosyn 2.25 Gm Iv Premix IVPB 100 mls/hr Q8H ASIM Administration Vancomycin/Sodium Chloride 1 gm in 200 mls @ 133.333 mls/hr 06/27/17 12:00 13:00 Vancocin IVPB Not Given Q24H ASIM Heparin Sodium/Sodium Chloride 25,000 units in 250 mls @ 7.947 mls/hr 08:36 07/03/17 01:42 Heparin 79686 Units/250ml 1/2 Normal Saline IV 12 units/kg/hr .Q24H PRN 7.947 mls/hr TITRATE PER PROTOCOL Administration Protocol 12 UNITS/KG/HR Propofol 1,000 mg in 100 mls @ 1.926 mls/hr 07/03/17 09:24 07/06/17 05:58 Diprivan IV 17.9 mcg/kg/min .Q24H PRN 6.896 mls/hr TITRATE PER MD ORDER Administration Protocol 5 MCG/KG/MIN Micafungin Sodium 100 mg/ 100 mls @ 100 mls/hr 07/04/17 20:00 07/05/17 20:00 Sodium Chloride IV 100 mls/hr Q24H ASIM Administration Insulin Human Regular 0 unit 06/27/17 13:02 07/06/17 06:00 Novolin R SC 1 unit Q6 ASIM Administration Protocol Lorazepam 2 mg 07/03/17 09:24 07/04/17 14:43 Ativan IVP 2 mg Q6H PRN Administration Anxiety Metoprolol Tartrate 25 mg 07/05/17 22:00 07/05/17 22:42 Lopressor PO 25 mg Q12 ASIM Administration Vitamin A 1 ea 07/05/17 18:00 07/05/17 17:06 Vitamin A & D Oint Ud Foilpak TOP 1 ea BID ASIM Administration - Patient Studies Lab Studies: Microbiology Studies 07/03/17 Unknown Gram Stain - Final Trachasp Sputum Culture - Final NORMAL ORAL STEPHANIE 07/03/17 09:30 Blood Culture - Preliminary Blood-Venous NO GROWTH AFTER 48 HOURS Lab Studies 07/06/17 07/06/17 07/06/17 Range/Units 07:39 06:16 06:04 WBC 21.1 H (4.8-10.8) K/uL RBC 2.87 L (3.80-5.20) Mil/uL Hgb 7.5 L (11.0-16.0) g/dL Hct 24.5 L (34.0-47.0) % MCV 85.3 (81.0-99.0) fL MCH 26.1 L (27.0-31.0) pg MCHC 30.5 L (33.0-37.0) g/dL RDW 18.2 H (11.5-14.5) % Plt Count 149 (130-400) K/uL MPV 10.8 (7.2-11.7) fL Neut % (Auto) (50.0-75.0) % Lymph % (Auto) (20.0-40.0) % [place] % (Auto) (0.0-10.0) % Eos % (Auto) (0.0-4.0) % Baso % (Auto) (0.0-2.0) % Neut # (1.8-7.0) K/uL Lymph # (1.0-4.3) K/uL [place] # (0.0-0.8) K/uL Eos # (0.0-0.7) K/uL Baso # (0.0-0.2) K/uL Neutrophils % (Manual) (50-75) % Lymphocytes % (Manual) (20-40) % Monocytes % (Manual) (0-10) % Eosinophils % (Manual) (0-4) % Platelet Estimate (NORMAL) Polychromasia Hypochromasia (manual) Poikilocytosis (manual Anisocytosis (manual) Microcytosis (manual) Macrocytosis (manual) Target Cells Sodium 146 (132-148) mmol/L Potassium 4.1 (3.6-5.2) mmol/L Chloride 108 H (98-107) mmol/L Carbon Dioxide 27 (22-30) mmol/L Anion Gap 15 (10-20) BUN 60 H (7-17) mg/dL Creatinine 2.3 H (0.7-1.2) MG/DL Est GFR ( Amer) 25 Est GFR (Non-Af Amer) 21 POC Glucose (mg/dL) 261 H (65-110) mg/dL Random Glucose 238 H (65-105) mg/dL Calcium 8.1 L (8.6-10.4) mg/dl Phosphorus 3.3 (2.5-4.5) mg/dL Magnesium 1.9 (1.6-2.3) mg/dL Total Bilirubin 0.6 (0.2-1.3) mg/dL AST 44 H (14-36) U/L ALT 56 H (9-52) U/L Alkaline Phosphatase 98 (38-126) U/L Total Protein 5.4 L (6.3-8.3) g/dL Albumin 2.8 L (3.5-5.0) g/dL Globulin 2.6 (2.2-3.9) gm/dL Albumin/Globulin Ratio 1.1 (1.0-2.1) 07/06/17 07/05/17 07/05/17 Range/Units 06:04 23:53 18:09 WBC 18.5 H (4.8-10.8) K/uL RBC 2.47 L (3.80-5.20) Mil/uL Hgb 6.5 L* (11.0-16.0) g/dL Hct 21.3 L (34.0-47.0) % MCV 85.9 (81.0-99.0) fL MCH 26.2 L (27.0-31.0) pg MCHC 30.5 L (33.0-37.0) g/dL RDW 18.6 H (11.5-14.5) % Plt Count 142 (130-400) K/uL MPV 11.2 (7.2-11.7) fL Neut % (Auto) 83.4 H (50.0-75.0) % Lymph % (Auto) 8.6 L (20.0-40.0) % [place] % (Auto) 3.5 (0.0-10.0) % Eos % (Auto) 4.0 (0.0-4.0) % Baso % (Auto) 0.5 (0.0-2.0) % Neut # 15.4 H (1.8-7.0) K/uL Lymph # 1.6 (1.0-4.3) K/uL [place] # 0.7 (0.0-0.8) K/uL Eos # 0.7 (0.0-0.7) K/uL Baso # 0.1 (0.0-0.2) K/uL Neutrophils % (Manual) (50-75) % Lymphocytes % (Manual) (20-40) % Monocytes % (Manual) (0-10) % Eosinophils % (Manual) (0-4) % Platelet Estimate (NORMAL) Polychromasia Hypochromasia (manual) Poikilocytosis (manual Anisocytosis (manual) Microcytosis (manual) Macrocytosis (manual) Target Cells Sodium (132-148) mmol/L Potassium (3.6-5.2) mmol/L Chloride (98-107) mmol/L Carbon Dioxide (22-30) mmol/L Anion Gap (10-20) BUN (7-17) mg/dL Creatinine (0.7-1.2) MG/DL Est GFR ( Amer) Est GFR (Non-Af Amer) POC Glucose (mg/dL) 236 H 213 H (65-110) mg/dL Random Glucose (65-105) mg/dL Calcium (8.6-10.4) mg/dl Phosphorus (2.5-4.5) mg/dL Magnesium (1.6-2.3) mg/dL Total Bilirubin (0.2-1.3) mg/dL AST (14-36) U/L ALT (9-52) U/L Alkaline Phosphatase (38-126) U/L Total Protein (6.3-8.3) g/dL Albumin (3.5-5.0) g/dL Globulin (2.2-3.9) gm/dL Albumin/Globulin Ratio (1.0-2.1) 07/05/17 07/05/17 Range/Units 12:22 06:38 WBC (4.8-10.8) K/uL RBC (3.80-5.20) Mil/uL Hgb (11.0-16.0) g/dL Hct (34.0-47.0) % MCV (81.0-99.0) fL MCH (27.0-31.0) pg MCHC (33.0-37.0) g/dL RDW (11.5-14.5) % Plt Count (130-400) K/uL MPV (7.2-11.7) fL Neut % (Auto) (50.0-75.0) % Lymph % (Auto) (20.0-40.0) % [place] % (Auto) (0.0-10.0) % Eos % (Auto) (0.0-4.0) % Baso % (Auto) (0.0-2.0) % Neut # (1.8-7.0) K/uL Lymph # (1.0-4.3) K/uL [place] # (0.0-0.8) K/uL Eos # (0.0-0.7) K/uL Baso # (0.0-0.2) K/uL Neutrophils % (Manual) 85 H (50-75) % Lymphocytes % (Manual) 8 L (20-40) % Monocytes % (Manual) 4 (0-10) % Eosinophils % (Manual) 3 (0-4) % Platelet Estimate Normal (NORMAL) Polychromasia Slight Hypochromasia (manual) Moderate Poikilocytosis (manual Slight Anisocytosis (manual) Slight Microcytosis (manual) Slight Macrocytosis (manual) Slight Target Cells Slight Sodium (132-148) mmol/L Potassium (3.6-5.2) mmol/L Chloride (98-107) mmol/L Carbon Dioxide (22-30) mmol/L Anion Gap (10-20) BUN (7-17) mg/dL Creatinine (0.7-1.2) MG/DL Est GFR ( Amer) Est GFR (Non-Af Amer) POC Glucose (mg/dL) 306 H (65-110) mg/dL Random Glucose (65-105) mg/dL Calcium (8.6-10.4) mg/dl Phosphorus (2.5-4.5) mg/dL Magnesium (1.6-2.3) mg/dL Total Bilirubin (0.2-1.3) mg/dL AST (14-36) U/L ALT (9-52) U/L Alkaline Phosphatase (38-126) U/L Total Protein (6.3-8.3) g/dL Albumin (3.5-5.0) g/dL Globulin (2.2-3.9) gm/dL Albumin/Globulin Ratio (1.0-2.1) Laboratory Results - last 24 hr 07/05/17 07/05/17 07/05/17 06:38 12:22 18:09 WBC RBC Hgb Hct MCV MCH MCHC RDW Plt Count MPV Neut % (Auto) Lymph % (Auto) [place] % (Auto) Eos % (Auto) Baso % (Auto) Neut # Lymph # [place] # Eos # Baso # Neutrophils % (Manual) 85 H Lymphocytes % (Manual) 8 L Monocytes % (Manual) 4 Eosinophils % (Manual) 3 Platelet Estimate Normal Polychromasia Slight Hypochromasia (manual) Moderate Poikilocytosis (manual Slight Anisocytosis (manual) Slight Microcytosis (manual) Slight Macrocytosis (manual) Slight Target Cells Slight Sodium Potassium Chloride Carbon Dioxide Anion Gap BUN Creatinine Est GFR ( Amer) Est GFR (Non-Af Amer) POC Glucose (mg/dL) 306 H 213 H Random Glucose Calcium Phosphorus Magnesium Total Bilirubin AST ALT Alkaline Phosphatase Total Protein Albumin Globulin Albumin/Globulin Ratio 07/05/17 07/06/17 07/06/17 23:53 06:04 06:04 WBC 18.5 H RBC 2.47 L Hgb 6.5 L* Hct 21.3 L MCV 85.9 MCH 26.2 L MCHC 30.5 L RDW 18.6 H Plt Count 142 MPV 11.2 Neut % (Auto) 83.4 H Lymph % (Auto) 8.6 L [place] % (Auto) 3.5 Eos % (Auto) 4.0 Baso % (Auto) 0.5 Neut # 15.4 H Lymph # 1.6 [place] # 0.7 Eos # 0.7 Baso # 0.1 Neutrophils % (Manual) Lymphocytes % (Manual) Monocytes % (Manual) Eosinophils % (Manual) Platelet Estimate Polychromasia Hypochromasia (manual) Poikilocytosis (manual Anisocytosis (manual) Microcytosis (manual) Macrocytosis (manual) Target Cells Sodium 146 Potassium 4.1 Chloride 108 H Carbon Dioxide 27 Anion Gap 15 BUN 60 H Creatinine 2.3 H Est GFR ( Amer) 25 Est GFR (Non-Af Amer) 21 POC Glucose (mg/dL) 236 H Random Glucose 238 H Calcium 8.1 L Phosphorus 3.3 Magnesium 1.9 Total Bilirubin 0.6 AST 44 H ALT 56 H Alkaline Phosphatase 98 Total Protein 5.4 L Albumin 2.8 L Globulin 2.6 Albumin/Globulin Ratio 1.1 07/06/17 07/06/17 06:16 07:39 WBC 21.1 H RBC 2.87 L Hgb 7.5 L Hct 24.5 L MCV 85.3 MCH 26.1 L MCHC 30.5 L RDW 18.2 H Plt Count 149 MPV 10.8 Neut % (Auto) Lymph % (Auto) [place] % (Auto) Eos % (Auto) Baso % (Auto) Neut # Lymph # [place] # Eos # Baso # Neutrophils % (Manual) Lymphocytes % (Manual) Monocytes % (Manual) Eosinophils % (Manual) Platelet Estimate Polychromasia Hypochromasia (manual) Poikilocytosis (manual Anisocytosis (manual) Microcytosis (manual) Macrocytosis (manual) Target Cells Sodium Potassium Chloride Carbon Dioxide Anion Gap BUN Creatinine Est GFR ( Amer) Est GFR (Non-Af Amer) POC Glucose (mg/dL) 261 H Random Glucose Calcium Phosphorus Magnesium Total Bilirubin AST ALT Alkaline Phosphatase Total Protein Albumin Globulin Albumin/Globulin Ratio Fingerstick Blood Sugar Results: 261 Review of Systems - Review of Systems Systems not reviewed;Unavailable: Intubated Critical Care Progress Note - Vent Settings TIDAL VOLUME:: 400 RESP RATE:: 10 FIO2:: 50 PEEP:: 5 Assessment/Plan - Assessment and Plan (Free Text) Assessment: 77 year old female with history of HTN, DM, CAD, presented initially c/o chest pain. Patient had syncopal episode when BLS arrived and became diaphoretic and bradycardic. ALS arrived, patient had episode of vomiting, intubated for airway protection. Patient had NSTEMI with elevated troponins. Patient was severely anemic on presentation (Hgb 6.5), s/p prbc, 8.9. Patient had EDG 06/28/17, showed small hiatal hernia and acute gastritis. Patient was placed on CPAP trial and then extubated on 06/29/17. Patient c/o nausea and SOB post- extubation. Patient placed on BiPAP prn. Overnight, patient went into a-fib, started on cardizem drip and heparin drip. Patient converted to normal sinus rhythm, and cardizem drip was being tapered. In the afternoon, patient in afib, started on metoproplol, cardizem drip continued (06/30/17). Patient started on metoprolol and was given one dose of digoxin for afib, 07/01/17. Neuro: - discontinued propofol 5 mcg/kg/min iv - lorazepam 2mg iv q6 prn for agitation Pulm: - CPAP - Patient was extubated on 06/29/17, on BiPAP, then reintubated on 07/03/17 - Acute respiratory failure with hypoxemia secondary to pulmonary edema - CXR: showing worsening infiltrative changes, likely pneumonia CV: NSTEMI; CHF; A-Fib resolved - Troponin: 0.25, 3.11, 4.03, 2.84 (trending down) - A-fib resolved, on heparin drip. - Off pressors - NS@100ml/hr - Echo: EF 35%; moderately impaired LV systolic function; mild hypokinesis of posterior wall; grade-II pseudonormal diastolic dysfunction; elevated LA pressure; mod dilated LA; Trace AR; Aortic valve mildly sclerotic. - Started metoprolol 5mg IV Q6 - started amiodarone 0.5mg/min iv - Cardiology consulted: Dr. Arshad - As per Dr. Arshad, cannot do cardiac cath due to elevated Cr. Endo: no acute issues - ISS GI: echogenic liver seen on U/S; gastritis - GI consulted: Dr. Mendoza, help appreciated - EGD (06/28/17): small hiatal hernia, acute gastritis (biopsied) - EDG and colonoscopy in 02/2017, 5mm polyp resected; congested mucosa in descending colon, non-bleeding external, internal hemorrhoids. - Abd/Pelvic U/S: echogenic liver maybe in setting of hepatic parenchymal disease or fatty infiltration; b/l echogenic renal parenchyma maybe in setting of medical renal disease; 2.3x2.0x2.2cm right renal cyst Heme: anemic, s/p PRBC transfusionx2 - Hgb 6.5 on admission, transfused 2 units PRBC - Monitor H/H Renal: CKD - Nephrology consulted- Dr. 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 - Hypokalemia: gave KCl - at high risk for contrast nephropathy w/ cardiac cath ID: Leokocytosis - CXR: showing worsening infiltrative changes, likely pneumonia - Continue Zosyn - Hold Vancomycin-->vanco trough 20.1 - Urine culture 07/03 growing yeast species - continue micafungin 100mg q24 - sputum culture 07/03 negative - blood culture 07/03 no growth up to date - UA: 1+ protein, 3+ blood, 15 WBC, 60 RBC - Infectious disease consulted, Dr Reese Prophylaxis: - DVT: SCDs; on heparin drip for a-fib - GI: Pepcid daily - Swallow eval: failed on 06/30/17 <Paxton Conrad - Last Filed: 07/06/17 17:49> CCU Objective - Vital Signs / Intake & Output Vital Signs (Last 4 hours): Vital Signs Temp Pulse Resp BP Pulse Ox 07/06/17 17:00 73 20 100 07/06/17 16:36 70 16 136/47 L 100 07/06/17 16:00 98.3 F 71 20 100 07/06/17 15:36 73 21 131/46 L 99 07/06/17 15:05 75 18 143/47 L 96 07/06/17 15:00 77 21 99 07/06/17 14:00 88 38 H 99 Intake and Output (Last 8hrs): Intake & Output 07/06/17 07/06/17 07/06/17 06:59 14:59 22:59 Intake Total 1270.8 861.4 167.2 Output Total 490 325 100 Balance 780.8 536.4 67.2 Weight 140 lb 1.6 oz Intake: IV 100.0 50 Intake, IV Amount 100.8 41.4 17.2 Right Antecubital 0 0 Right Forearm 50 0 0 Right Hand 50.8 41.4 17.2 Oral 450 30 Tube Feeding 320 320 120 Other 750 Output: Urine 490 325 100 Urethral (Neff) 490 325 100 Other: # Bowel Movements 1 0 0 - Medications Active Medications: Active Medications Generic Name Dose Route Start Last Admin Trade Name Freq PRN Reason Stop Dose Admin Albuterol/Ipratropium 3 ml 07/04/17 08:00 07/06/17 13:40 Duoneb 3 Mg/0.5 Mg (3 Ml) Ud INH 3 ml RQ6 ASIM Administration Amiodarone HCl 200 mg 07/04/17 23:15 07/06/17 09:18 Cordarone PO 200 mg BID ASIM Administration Famotidine 20 mg 06/26/17 10:00 07/06/17 09:17 Pepcid IVP 20 mg DAILY ASIM Administration Piperacillin Sod/Tazobactam Sod 2.25 gm in 50 mls @ 100 mls/hr 06/26/17 09:00 07/06/17 17:21 Zosyn 2.25 Gm Iv Premix IVPB 100 mls/hr Q8H ASIM Administration Vancomycin/Sodium Chloride 1 gm in 200 mls @ 133.333 mls/hr 06/27/17 12:00 13:00 Vancocin IVPB Not Given Q24H ASIM Heparin Sodium/Sodium Chloride 25,000 units in 250 mls @ 7.947 mls/hr 08:36 07/03/17 01:42 Heparin 68005 Units/250ml 1/2 Normal Saline IV 12 units/kg/hr .Q24H PRN 7.947 mls/hr TITRATE PER PROTOCOL Administration Protocol 12 UNITS/KG/HR Propofol 1,000 mg in 100 mls @ 1.926 mls/hr 07/03/17 09:24 07/06/17 14:40 Diprivan IV 18 mcg/kg/min .Q24H PRN 6.935 mls/hr TITRATE PER MD ORDER Titration Protocol 5 MCG/KG/MIN Micafungin Sodium 100 mg/ 100 mls @ 100 mls/hr 07/04/17 20:00 07/05/17 20:00 Sodium Chloride IV 100 mls/hr Q24H ASIM Administration Insulin Human Regular 0 unit 06/27/17 13:02 07/06/17 12:39 Novolin R SC 3 unit Q6 ASIM Administration Protocol Lorazepam 2 mg 07/03/17 09:24 07/04/17 14:43 Ativan IVP 2 mg Q6H PRN Administration Anxiety Metoprolol Tartrate 25 mg 07/05/17 22:00 07/06/17 09:12 Lopressor PO 25 mg Q12 ASIM Administration Vitamin A 1 ea 07/05/17 18:00 07/06/17 09:19 Vitamin A & D Oint Ud Foilpak TOP 1 ea BID ASIM Administration - Patient Studies Lab Studies: Microbiology Studies 07/03/17 09:30 Blood Culture - Preliminary Blood-Venous NO GROWTH AFTER 3 DAYS Lab Studies 07/06/17 07/06/17 07/06/17 Range/Units 11:32 07:39 07:39 WBC 21.1 H (4.8-10.8) K/uL RBC 2.87 L (3.80-5.20) Mil/uL Hgb 7.5 L (11.0-16.0) g/dL Hct 24.5 L (34.0-47.0) % MCV 85.3 (81.0-99.0) fL MCH 26.1 L (27.0-31.0) pg MCHC 30.5 L (33.0-37.0) g/dL RDW 18.2 H (11.5-14.5) % Plt Count 149 (130-400) K/uL MPV 10.8 (7.2-11.7) fL Neut % (Auto) (50.0-75.0) % Lymph % (Auto) (20.0-40.0) % [place] % (Auto) (0.0-10.0) % Eos % (Auto) (0.0-4.0) % Baso % (Auto) (0.0-2.0) % Neut # (1.8-7.0) K/uL Lymph # (1.0-4.3) K/uL [place] # (0.0-0.8) K/uL Eos # (0.0-0.7) K/uL Baso # (0.0-0.2) K/uL Neutrophils % (Manual) (50-75) % Band Neutrophils % (0-2) % Lymphocytes % (Manual) (20-40) % Monocytes % (Manual) (0-10) % Eosinophils % (Manual) (0-4) % Nucleated RBC % (0-0) % Platelet Estimate (NORMAL) Large Platelets Polychromasia Hypochromasia (manual) Poikilocytosis (manual Anisocytosis (manual) Microcytosis (manual) Macrocytosis (manual) Target Cells Ovalocytes Sodium (132-148) mmol/L Potassium (3.6-5.2) mmol/L Chloride (98-107) mmol/L Carbon Dioxide (22-30) mmol/L Anion Gap (10-20) BUN (7-17) mg/dL Creatinine (0.7-1.2) MG/DL Est GFR ( Amer) Est GFR (Non-Af Amer) POC Glucose (mg/dL) 238 H (65-110) mg/dL Random Glucose (65-105) mg/dL Calcium (8.6-10.4) mg/dl Phosphorus (2.5-4.5) mg/dL Magnesium (1.6-2.3) mg/dL Total Bilirubin (0.2-1.3) mg/dL AST (14-36) U/L ALT (9-52) U/L Alkaline Phosphatase (38-126) U/L Total Protein (6.3-8.3) g/dL Albumin (3.5-5.0) g/dL Globulin (2.2-3.9) gm/dL Albumin/Globulin Ratio (1.0-2.1) Blood Type A POSITIVE Antibody Screen Negative 07/06/17 07/06/17 07/06/17 Range/Units 06:16 06:04 06:04 WBC 18.5 H (4.8-10.8) K/uL RBC 2.47 L (3.80-5.20) Mil/uL Hgb 6.5 L* (11.0-16.0) g/dL Hct 21.3 L (34.0-47.0) % MCV 85.9 (81.0-99.0) fL MCH 26.2 L (27.0-31.0) pg MCHC 30.5 L (33.0-37.0) g/dL RDW 18.6 H (11.5-14.5) % Plt Count 142 (130-400) K/uL MPV 11.2 (7.2-11.7) fL Neut % (Auto) 83.4 H (50.0-75.0) % Lymph % (Auto) 8.6 L (20.0-40.0) % [place] % (Auto) 3.5 (0.0-10.0) % Eos % (Auto) 4.0 (0.0-4.0) % Baso % (Auto) 0.5 (0.0-2.0) % Neut # 15.4 H (1.8-7.0) K/uL Lymph # 1.6 (1.0-4.3) K/uL [place] # 0.7 (0.0-0.8) K/uL Eos # 0.7 (0.0-0.7) K/uL Baso # 0.1 (0.0-0.2) K/uL Neutrophils % (Manual) 81 H (50-75) % Band Neutrophils % 4 H (0-2) % Lymphocytes % (Manual) 8 L (20-40) % Monocytes % (Manual) 3 (0-10) % Eosinophils % (Manual) 4 (0-4) % Nucleated RBC % 1 H (0-0) % Platelet Estimate Normal (NORMAL) Large Platelets Present Polychromasia Slight Hypochromasia (manual) Slight Poikilocytosis (manual Slight Anisocytosis (manual) Slight Microcytosis (manual) Slight Macrocytosis (manual) Slight Target Cells Slight Ovalocytes Slight Sodium 146 (132-148) mmol/L Potassium 4.1 (3.6-5.2) mmol/L Chloride 108 H (98-107) mmol/L Carbon Dioxide 27 (22-30) mmol/L Anion Gap 15 (10-20) BUN 60 H (7-17) mg/dL Creatinine 2.3 H (0.7-1.2) MG/DL Est GFR ( Amer) 25 Est GFR (Non-Af Amer) 21 POC Glucose (mg/dL) 261 H (65-110) mg/dL Random Glucose 238 H (65-105) mg/dL Calcium 8.1 L (8.6-10.4) mg/dl Phosphorus 3.3 (2.5-4.5) mg/dL Magnesium 1.9 (1.6-2.3) mg/dL Total Bilirubin 0.6 (0.2-1.3) mg/dL AST 44 H (14-36) U/L ALT 56 H (9-52) U/L Alkaline Phosphatase 98 (38-126) U/L Total Protein 5.4 L (6.3-8.3) g/dL Albumin 2.8 L (3.5-5.0) g/dL Globulin 2.6 (2.2-3.9) gm/dL Albumin/Globulin Ratio 1.1 (1.0-2.1) Blood Type Antibody Screen 07/05/17 07/05/17 Range/Units 23:53 18:09 WBC (4.8-10.8) K/uL RBC (3.80-5.20) Mil/uL Hgb (11.0-16.0) g/dL Hct (34.0-47.0) % MCV (81.0-99.0) fL MCH (27.0-31.0) pg MCHC (33.0-37.0) g/dL RDW (11.5-14.5) % Plt Count (130-400) K/uL MPV (7.2-11.7) fL Neut % (Auto) (50.0-75.0) % Lymph % (Auto) (20.0-40.0) % [place] % (Auto) (0.0-10.0) % Eos % (Auto) (0.0-4.0) % Baso % (Auto) (0.0-2.0) % Neut # (1.8-7.0) K/uL Lymph # (1.0-4.3) K/uL [place] # (0.0-0.8) K/uL Eos # (0.0-0.7) K/uL Baso # (0.0-0.2) K/uL Neutrophils % (Manual) (50-75) % Band Neutrophils % (0-2) % Lymphocytes % (Manual) (20-40) % Monocytes % (Manual) (0-10) % Eosinophils % (Manual) (0-4) % Nucleated RBC % (0-0) % Platelet Estimate (NORMAL) Large Platelets Polychromasia Hypochromasia (manual) Poikilocytosis (manual Anisocytosis (manual) Microcytosis (manual) Macrocytosis (manual) Target Cells Ovalocytes Sodium (132-148) mmol/L Potassium (3.6-5.2) mmol/L Chloride (98-107) mmol/L Carbon Dioxide (22-30) mmol/L Anion Gap (10-20) BUN (7-17) mg/dL Creatinine (0.7-1.2) MG/DL Est GFR ( Amer) Est GFR (Non-Af Amer) POC Glucose (mg/dL) 236 H 213 H (65-110) mg/dL Random Glucose (65-105) mg/dL Calcium (8.6-10.4) mg/dl Phosphorus (2.5-4.5) mg/dL Magnesium (1.6-2.3) mg/dL Total Bilirubin (0.2-1.3) mg/dL AST (14-36) U/L ALT (9-52) U/L Alkaline Phosphatase (38-126) U/L Total Protein (6.3-8.3) g/dL Albumin (3.5-5.0) g/dL Globulin (2.2-3.9) gm/dL Albumin/Globulin Ratio (1.0-2.1) Blood Type Antibody Screen Laboratory Results - last 24 hr 07/05/17 07/05/17 07/06/17 18:09 23:53 06:04 WBC 18.5 H RBC 2.47 L Hgb 6.5 L* Hct 21.3 L MCV 85.9 MCH 26.2 L MCHC 30.5 L RDW 18.6 H Plt Count 142 MPV 11.2 Neut % (Auto) 83.4 H Lymph % (Auto) 8.6 L [place] % (Auto) 3.5 Eos % (Auto) 4.0 Baso % (Auto) 0.5 Neut # 15.4 H Lymph # 1.6 [place] # 0.7 Eos # 0.7 Baso # 0.1 Neutrophils % (Manual) 81 H Band Neutrophils % 4 H Lymphocytes % (Manual) 8 L Monocytes % (Manual) 3 Eosinophils % (Manual) 4 Nucleated RBC % 1 H Platelet Estimate Normal Large Platelets Present Polychromasia Slight Hypochromasia (manual) Slight Poikilocytosis (manual Slight Anisocytosis (manual) Slight Microcytosis (manual) Slight Macrocytosis (manual) Slight Target Cells Slight Ovalocytes Slight Sodium Potassium Chloride Carbon Dioxide Anion Gap BUN Creatinine Est GFR ( Amer) Est GFR (Non-Af Amer) POC Glucose (mg/dL) 213 H 236 H Random Glucose Calcium Phosphorus Magnesium Total Bilirubin AST ALT Alkaline Phosphatase Total Protein Albumin Globulin Albumin/Globulin Ratio Blood Type Antibody Screen 07/06/17 07/06/17 07/06/17 06:04 06:16 07:39 WBC 21.1 H RBC 2.87 L Hgb 7.5 L Hct 24.5 L MCV 85.3 MCH 26.1 L MCHC 30.5 L RDW 18.2 H Plt Count 149 MPV 10.8 Neut % (Auto) Lymph % (Auto) [place] % (Auto) Eos % (Auto) Baso % (Auto) Neut # Lymph # [place] # Eos # Baso # Neutrophils % (Manual) Band Neutrophils % Lymphocytes % (Manual) Monocytes % (Manual) Eosinophils % (Manual) Nucleated RBC % Platelet Estimate Large Platelets Polychromasia Hypochromasia (manual) Poikilocytosis (manual Anisocytosis (manual) Microcytosis (manual) Macrocytosis (manual) Target Cells Ovalocytes Sodium 146 Potassium 4.1 Chloride 108 H Carbon Dioxide 27 Anion Gap 15 BUN 60 H Creatinine 2.3 H Est GFR ( Amer) 25 Est GFR (Non-Af Amer) 21 POC Glucose (mg/dL) 261 H Random Glucose 238 H Calcium 8.1 L Phosphorus 3.3 Magnesium 1.9 Total Bilirubin 0.6 AST 44 H ALT 56 H Alkaline Phosphatase 98 Total Protein 5.4 L Albumin 2.8 L Globulin 2.6 Albumin/Globulin Ratio 1.1 Blood Type Antibody Screen 07/06/17 07/06/17 07:39 11:32 WBC RBC Hgb Hct MCV MCH MCHC RDW Plt Count MPV Neut % (Auto) Lymph % (Auto) [place] % (Auto) Eos % (Auto) Baso % (Auto) Neut # Lymph # [place] # Eos # Baso # Neutrophils % (Manual) Band Neutrophils % Lymphocytes % (Manual) Monocytes % (Manual) Eosinophils % (Manual) Nucleated RBC % Platelet Estimate Large Platelets Polychromasia Hypochromasia (manual) Poikilocytosis (manual Anisocytosis (manual) Microcytosis (manual) Macrocytosis (manual) Target Cells Ovalocytes Sodium Potassium Chloride Carbon Dioxide Anion Gap BUN Creatinine Est GFR ( Amer) Est GFR (Non-Af Amer) POC Glucose (mg/dL) 238 H Random Glucose Calcium Phosphorus Magnesium Total Bilirubin AST ALT Alkaline Phosphatase Total Protein Albumin Globulin Albumin/Globulin Ratio Blood Type A POSITIVE Antibody Screen Negative Assessment/Plan (1) Acute respiratory failure with hypoxemia Current Visit: Yes Status: Acute (2) Anemia Current Visit: Yes Status: Acute (3) Elevated troponin Current Visit: Yes Status: Acute Attending/Attestation - Attestation I have personally seen and examined this patient.: Yes I have fully participated in the care of the patient.: Yes I have reviewed all pertinent clinical information: Yes Notes (Text): 07/06/17 17:47 Patient seen and examined in the intensive care unit. Case discussed with the staff in the morning. Not tolerating weaning Patient placed on TPs and became tachypneic after few hours Continue present treatment for now and continue with weaning Case discussed with family at length
[2017-07-06 08:25] LABS: EOSINOPHIL 4 % (0-4); NEUTROPHIL 81 % (50-75); NUCLEATED RED BLOOD CELL 1 % (0-0); TOTAL CELLS COUNTED 100
[2017-07-06 08:26] LABS: LARGE PLATELETS PRESENT
[2017-07-06] MEDS: Vitamins A & D Oint UD Foilpak TOP SCH ×2 (09:19→18:09)
--- NOTE | 2017-07-06 10:57 | RAD ---
PROCEDURE: CHEST RADIOGRAPH, 1 VIEW HISTORY: Pt vented COMPARISON: 07/05/2017 FINDINGS: Endotracheal tube is low in position and terminates at the merary. The nasogastric tube terminates in the stomach. LUNGS: There is interval mild improved aeration in the lungs with persistent severe pulmonary venous congestion. There is ill-defined airspace disease in the right upper lobe. PLEURA: No pneumothorax or large pleural effusion seen. CARDIOVASCULAR: There is persistent mild cardiomegaly. The mediastinal and hilar contours are normal. OSSEOUS STRUCTURES: No significant abnormalities. VISUALIZED UPPER ABDOMEN: Normal. OTHER FINDINGS: None. IMPRESSION: 1. Endotracheal tube is low in position and terminates at the merary. 2. Interval mild improved aeration in the lungs with persistent severe pulmonary venous congestion. Airspace disease in the right upper lobe could represent atelectasis or pneumonia. Follow-up is advised.
--- NOTE | 2017-07-06 14:58 | CP.PCM.PN ---
Subjective - Date & Time of Evaluation Date of Evaluation: 07/06/17 Time of Evaluation: 14:56 - Subjective Subjective: on respirator cannot obtain ROS no family at bedside chart and labs reviewed Objective - Vital Signs/Intake and Output Vital Signs (last 24 hours): Temp Pulse Resp BP Pulse Ox 98.6 F 88 38 H 166/58 H 99 07/06/17 12:00 07/06/17 14:00 07/06/17 14:00 07/06/17 13:37 07/06/17 14:00 Intake and Output: 07/06/17 07/06/17 06:59 18:59 Intake Total 1804.0 861.4 Output Total 735 325 Balance 1069.0 536.4 - Medications Medications: Current Medications Albuterol/Ipratropium (Duoneb 3 Mg/0.5 Mg (3 Ml) Ud) 3 ml INH RQ6 [facility] Last Admin: 07/06/17 13:40 Dose: 3 ml Amiodarone HCl (Cordarone) 200 mg PO BID [facility] Last Admin: 07/06/17 09:18 Dose: 200 mg Famotidine (Pepcid) 20 mg IVP DAILY [facility] Last Admin: 07/06/17 09:17 Dose: 20 mg Piperacillin Sod/Tazobactam Sod (Zosyn 2.25 Gm Iv Premix) 2.25 gm in 50 mls @ 100 mls/hr IVPB Q8H [facility] Last Admin: 07/06/17 09:18 Dose: 100 mls/hr Vancomycin/Sodium Chloride (Vancocin) 1 gm in 200 mls @ 133.333 mls/hr IVPB Q24H [facility] Last Admin: 06/28/17 13:00 Dose: Not Given Heparin Sodium/Sodium Chloride (Heparin 82750 Units/250ml 1/2 Normal Saline) 25 ,000 units in 250 mls @ 7.947 mls/hr IV .Q24H PRN; Protocol; 12 UNITS/KG/HR PRN Reason: TITRATE PER PROTOCOL Last Admin: 07/03/17 01:42 Dose: 12 units/kg/hr, 7.947 mls/hr Propofol (Diprivan) 1,000 mg in 100 mls @ 1.926 mls/hr IV .Q24H PRN; Protocol; 5 MCG/KG/MIN PRN Reason: TITRATE PER MD ORDER Last Titration: 07/06/17 11:10 Dose: 0 mcg/kg/min, 0 mls/hr Micafungin Sodium 100 mg/ (Sodium Chloride) 100 mls @ 100 mls/hr IV Q24H [facility] Last Admin: 07/05/17 20:00 Dose: 100 mls/hr Insulin Human Regular (Novolin R) 0 unit SC Q6 [facility] PRN Reason: Protocol Last Admin: 07/06/17 12:39 Dose: 3 unit Lorazepam (Ativan) 2 mg IVP Q6H PRN PRN Reason: Anxiety Last Admin: 07/04/17 14:43 Dose: 2 mg Metoprolol Tartrate (Lopressor) 25 mg PO Q12 [facility] Last Admin: 07/06/17 09:12 Dose: 25 mg Vitamin A (Vitamin A & D Oint Ud Foilpak) 1 ea TOP BID [facility] Last Admin: 07/06/17 09:19 Dose: 1 ea - Labs Labs: 07/06/17 07:39 07/06/17 06:04 PT 14.1 SECONDS (9.7-12.2) H 07/02/17 07:13 INR 1.3 07/02/17 07:13 APTT 49 SECONDS (21-34) H 07/03/17 06:20 - Constitutional Appears: Confused, Chronically Ill - Head Exam Head Exam: ATRAUMATIC - ENT Exam Additional comments: on respirator - Respiratory Exam Respiratory Exam: Decreased Breath Sounds. absent: Accessory Muscle Use - Cardiovascular Exam Cardiovascular Exam: REGULAR RHYTHM. absent: Rubs - Extremities Exam Extremities Exam: absent: Pedal Edema Assessment and Plan - Assessment and Plan (Free Text) Assessment: grace on ckd, stable vdrf continue respiratory support avoid nephrotoxins trend labs will follow
[2017-07-06] MEDS: Micafungin 100 MG in Sodium Chloride 0.9% 100 ML IV SCH (20:00)
--- NOTE | 2017-07-06 20:46 | PN ---
LOCATION: ICU 12. SUBJECTIVE: The patient is a 77-year-old female seen in rounds with the staff in the intensive care unit, still on Diprivan for sedation, intubated, on vent. The patient still has an NG tube for feeding purposes. The entire chart is reviewed including, but not limited to the most recent lab and radiology study results, current and previous medication list, current and the previous medical events. Case discussed at length with the staff as well as the family at the bedside. LABORATORY DATA: Today's laboratory showed leukocytosis of 21.1 with low hemoglobin 7.8, low hematocrit of 24.5 with low indices highly suggestive hypochromic microcytic anemia, with abnormal ABG and increased BUN 60, creatinine 2.3, with blood glucose level 261. Also was found to have mildly elevated AST to 44 with ALT at 65 with low albumin 2.8, low total protein 5.4. Most recent chest x-ray done today, report is still pending. However, yesterday, chest x-ray showed right-sided pneumonia. PHYSICAL EXAMINATION: GENERAL: The patient is a 77-year-old female intubated, sedated, with temperature of 99 and pulse of 76 with blood pressure 148/64. HEENT: Show pale dry oral mucous membranes. Nonicteric sclerae. The patient is still intubated. LUNGS: Scattered bilateral crepitation with decrease air entry at bases. HEART: Positive S1 and S2. ABDOMEN: Soft with slight mild distention. Bowel sounds are hypoactive. No mass or organomegaly. No rebound tenderness or guarding. EXTREMITIES: Lower extremity with mild edematous changes. No clubbing or cyanosis. NEUROLOGIC: No reported new neurological deficits, sensory or motor. Peripheral pulses are present but weak bilaterally. IMPRESSION: 1. Respiratory failure, bilateral pneumonia, the patient is still intubated, on vent. 2. Clinical septicemia with leukocytosis. 3. Malnutrition with hypoalbuminemia, hypoproteinemia and reported dysphagia before. 4. Recent gastrointestinal blood workup with peptic ulcer disease. The patient may need blood transfusion to keep hemoglobin around 10 gram percent. 5. Dehydration with renal insufficiency, the patient would need central hyperalimentation in the meantime. 6. Due to above, the patient is a candidate for PEG insertion. 7. Syncopal episode by recent history. 8. Electrolyte imbalance with hypocalcemia. 9. Congestive heart failure with atrial fibrillation by recent history. SUGGESTION: 1. Agree with your plan. 2. Again, the patient will need central hyperalimentation. 3. PEG insertion is to be kept in mind, however, the patient is intubated and to be discussed with the family. Further recommendation to follow that. Diana Cazares MD
[2017-07-07] MEDS: Piperacill/Tazo 2.25gm in Dex 2.25 GM/50 ML BAG IVPB SCH ×3 (01:00→17:26)
[2017-07-07] MEDS: (Novolin R) Insulin Human Regular 100 units/ml vial SC SCH ×4 (01:00→17:59)
[2017-07-07] MEDS: Albuterol-Ipratrop 3 mg / 0.5 (3 ml) UD INH SCH ×4 (02:41→19:42)
[2017-07-07 06:02] LABS: ABG ALLEN TEST POS; ABG MECHANICAL RATE 10; ARTERIAL BLOOD GAS MODE PRVC; ARTERIAL BLOOD HGB O2 SAT 95.5 % (95.0-98.0); ATERIAL BLOOD GAS PEEP 5; CARBOXYHEMOGLOBIN 2.1 % (0.5-1.5); DRAW SITE RR; HHB 0.8 % (0.0-5.0); METHEMOGLOBIN 1.6 % (0.0-3.0)
[2017-07-07 06:42] LABS: BASO # 0.1 K/uL (0.0-0.2); BASO % 0.8 % (0.0-2.0); EOS # 0.6 K/uL (0.0-0.7); EOS % 3.9 % (0.0-4.0); HEMATOCRIT 19.5 % (34.0-47.0); LYMPH % 14.4 % (20.0-40.0); MEAN CELL VOLUME 85.3 fL (81.0-99.0); MEAN CORPUSCULAR HEMOGLOBIN 27.5 pg (27.0-31.0); MEAN CORPUSCULAR HGB CONC 32.2 g/dL (33.0-37.0); MEAN PLATELET VOLUME 11.5 fL (7.2-11.7); MONO # 0.5 K/uL (0.0-0.8); MONO % 3.4 % (0.0-10.0); NRBC % 0.3 % (0.0-2.0); RED CELL DISTRIBUTION WIDTH 18.4 % (11.5-14.5); WHITE BLOOD COUNT 14.2 K/uL (4.8-10.8)
[2017-07-07 06:57] LABS: POTASSIUM 4.1 mmol/L (3.6-5.2)
[2017-07-07 07:00] LABS: ALB/GLOB RATIO 0.9 (1.0-2.1); BILIRUBIN,TOTAL 0.6 mg/dL (0.2-1.3); PHOSPHOROUS 3.3 mg/dL (2.5-4.5); TOTAL PROTEIN 5.5 g/dL (6.3-8.3)
[2017-07-07 07:01] LABS: CALCIUM 7.7 mg/dl (8.6-10.4); MAGNESIUM 1.8 mg/dL (1.6-2.3)
[2017-07-07 08:11] LABS: HEMATOCRIT 21.7 % (34.0-47.0); MEAN CELL VOLUME 84.6 fL (81.0-99.0); MEAN CORPUSCULAR HGB CONC 30.7 g/dL (33.0-37.0); RED CELL DISTRIBUTION WIDTH 18.6 % (11.5-14.5); WHITE BLOOD COUNT 15.3 K/uL (4.8-10.8)
--- NOTE | 2017-07-07 09:26 | CP.PCM.PN ---
Subjective - Date & Time of Evaluation Date of Evaluation: 07/07/17 Time of Evaluation: 09:23 - Subjective Subjective: Remains on vent; sedated Cannot obtain ROS UO-1225ml renal function about same anemia worse- check iron stores K, mag low- replete Objective - Vital Signs/Intake and Output Vital Signs (last 24 hours): Temp Pulse Resp BP Pulse Ox 98.6 F 66 20 132/52 L 100 07/07/17 04:00 07/07/17 07:00 07/07/17 07:00 07/07/17 06:36 07/07/17 07:00 Intake and Output: 07/07/17 07/07/17 06:59 18:59 Intake Total 814.6 71.9 Output Total 570 Balance 244.6 71.9 - Medications Medications: Current Medications Albuterol/Ipratropium (Duoneb 3 Mg/0.5 Mg (3 Ml) Ud) 3 ml INH RQ6 [facility] Last Admin: 07/07/17 07:42 Dose: 3 ml Amiodarone HCl (Cordarone) 200 mg PO BID [facility] Last Admin: 07/06/17 18:07 Dose: 200 mg Famotidine (Pepcid) 20 mg IVP DAILY [facility] Last Admin: 07/06/17 09:17 Dose: 20 mg Piperacillin Sod/Tazobactam Sod (Zosyn 2.25 Gm Iv Premix) 2.25 gm in 50 mls @ 100 mls/hr IVPB Q8H [facility] Last Admin: 07/07/17 01:00 Dose: 100 mls/hr Vancomycin/Sodium Chloride (Vancocin) 1 gm in 200 mls @ 133.333 mls/hr IVPB Q24H [facility] Last Admin: 06/28/17 13:00 Dose: Not Given Heparin Sodium/Sodium Chloride (Heparin 38177 Units/250ml 1/2 Normal Saline) 25 ,000 units in 250 mls @ 7.947 mls/hr IV .Q24H PRN; Protocol; 12 UNITS/KG/HR PRN Reason: TITRATE PER PROTOCOL Last Admin: 07/03/17 01:42 Dose: 12 units/kg/hr, 7.947 mls/hr Propofol (Diprivan) 1,000 mg in 100 mls @ 1.926 mls/hr IV .Q24H PRN; Protocol; 5 MCG/KG/MIN PRN Reason: TITRATE PER MD ORDER Last Titration: 07/07/17 06:00 Dose: 18 mcg/kg/min, 6.935 mls/hr Micafungin Sodium 100 mg/ (Sodium Chloride) 100 mls @ 100 mls/hr IV Q24H [facility] Last Admin: 07/06/17 20:00 Dose: 100 mls/hr Insulin Human Regular (Novolin R) 0 unit SC Q6 [facility] PRN Reason: Protocol Last Admin: 07/07/17 06:30 Dose: 3 unit Lorazepam (Ativan) 2 mg IVP Q6H PRN PRN Reason: Anxiety Last Admin: 07/04/17 14:43 Dose: 2 mg Metoprolol Tartrate (Lopressor) 25 mg PO Q12 [facility] Last Admin: 07/06/17 22:00 Dose: 25 mg Vitamin A (Vitamin A & D Oint Ud Foilpak) 1 ea TOP BID [facility] Last Admin: 07/06/17 18:09 Dose: 1 ea - Labs Labs: 07/07/17 08:08 07/07/17 06:34 PT 14.1 SECONDS (9.7-12.2) H 07/02/17 07:13 INR 1.3 07/02/17 07:13 APTT 49 SECONDS (21-34) H 07/03/17 06:20 - Constitutional Appears: In Acute Distress, Chronically Ill - Head Exam Head Exam: ATRAUMATIC, NORMAL INSPECTION - Eye Exam Eye Exam: EOMI, Normal appearance - Neck Exam Neck Exam: Normal Inspection. absent: Tenderness - Respiratory Exam Respiratory Exam: Decreased Breath Sounds, Respiratory Distress - Cardiovascular Exam Cardiovascular Exam: REGULAR RHYTHM, +S1 - GI/Abdominal Exam GI & Abdominal Exam: Soft. absent: Tenderness - Extremities Exam Extremities Exam: Normal Inspection. absent: Tenderness - Neurological Exam Neurological Exam: Altered, CN II-XII Intact - Skin Skin Exam: Dry, Warm Assessment and Plan (1) CKD stage 4 due to type 2 diabetes mellitus Status: Acute (2) Proteinuria due to type 2 diabetes mellitus Status: Acute (3) Pulmonary edema Status: Acute - Assessment and Plan (Free Text) Plan: IV ABs as per pulmonary Replete mag, K pulmonary care
[2017-07-07] MEDS: Vitamins A & D Oint UD Foilpak TOP SCH ×2 (09:48→17:27)
--- NOTE | 2017-07-07 11:17 | RAD ---
HISTORY: intubation COMPARISON: Portable chest 07/06/2017 FINDINGS: LUNGS: Endotracheal tube has been retracted now terminating approximately 4.5 cm above the merray. Nasogastric tube is unchanged in position. Limited linear atelectasis seen posterior to the left heart with no infiltrate identified bilaterally. PLEURA: Trace left pleural effusion appears to developing with none on the right once again. CARDIOVASCULAR: Cardiac silhouette appears stable. No pulmonary vascular derangement identified. OSSEOUS STRUCTURES: No significant abnormalities. VISUALIZED UPPER ABDOMEN: Normal. OTHER FINDINGS: None. IMPRESSION: Diminished left basilar infiltrate or atelectasis with trace residual linear atelectasis seen posterior to the left heart. No right-sided infiltrate. Interval minimal left pleural effusion identified. None at the right.
--- NOTE | 2017-07-07 16:43 | CP.CCUPN ---
<KishorEb R - Last Filed: 07/07/17 16:39> CCU Subjective - Physician Review Subjective (Free Text): Patient was seen and examined at bedside in the morning. Patient on ventilator. Opens eyes to speech; with eye contact. Able to move arms. Review of systems was not obtainable as patient on ventilator. 07/07/17 16:39 CCU Objective - Vital Signs / Intake & Output Vital Signs (Last 4 hours): Vital Signs Temp Pulse Resp BP Pulse Ox 07/07/17 16:00 98.0 F 70 24 155/62 H 99 07/07/17 15:49 69 17 155/62 H 100 07/07/17 14:56 73 24 153/49 H 100 07/07/17 14:50 78 16 95/73 L 95 07/07/17 13:49 80 28 H 166/63 H 99 07/07/17 13:07 98.3 F 86 18 160/55 H 07/07/17 13:00 78 18 100 07/07/17 12:50 78 15 160/55 H 100 Intake and Output (Last 8hrs): Intake & Output 07/07/17 07/07/17 07/07/17 06:59 14:59 22:59 Intake Total 477 697.6 93.8 Output Total 310 555 345 Balance 167 142.6 -251.2 Intake: IV 90 Intake, IV Amount -13 27.6 13.8 Right Hand -13 27.6 13.8 Tube Feeding 400 345 80 Blood Product 325 Red Blood Cells Cpd As1 325 Lr Unit [id number] Output: Urine 310 555 145 Urethral (Neff) 310 555 145 Stool 200 Other: # Bowel Movements 0 0 - Physical Exam Head: Positive for: Atraumatic, Normocephalic Extroacular Muscles: Positive for: EOMI Mouth: Positive for: Moist Mucous Membranes Respiratory/Chest: Positive for: Clear to Auscultation. Negative for: Wheezes, Rales, Rhonchi Cardiovascular: Positive for: Normal S1, S2, Irregular Rhythm, Tachycardic. Negative for: Bradycardic Abdomen: Positive for: Distention, Normal Bowel Sounds. Negative for: Tenderness Upper Extremity: Positive for: Normal Inspection. Negative for: Edema Lower Extremity: Positive for: Normal Inspection. Negative for: Edema Skin: Positive for: Warm, Dry, Normal Color Psychiatric: Positive for: Alert, Lethargic - Medications Active Medications: Active Medications Generic Name Dose Route Start Last Admin Trade Name Freq PRN Reason Stop Dose Admin Albuterol/Ipratropium 3 ml 07/04/17 08:00 07/07/17 13:49 Duoneb 3 Mg/0.5 Mg (3 Ml) Ud INH 3 ml RQ6 ASIM Administration Amiodarone HCl 200 mg 07/04/17 23:15 07/07/17 09:47 Cordarone PO 200 mg BID ASIM Administration Famotidine 20 mg 06/26/17 10:00 07/07/17 09:48 Pepcid IVP 20 mg DAILY ASIM Administration Piperacillin Sod/Tazobactam Sod 2.25 gm in 50 mls @ 100 mls/hr 06/26/17 09:00 07/07/17 09:48 Zosyn 2.25 Gm Iv Premix IVPB 100 mls/hr Q8H ASIM Administration Vancomycin/Sodium Chloride 1 gm in 200 mls @ 133.333 mls/hr 06/27/17 12:00 13:00 Vancocin IVPB Not Given Q24H ASIM Heparin Sodium/Sodium Chloride 25,000 units in 250 mls @ 7.947 mls/hr 08:36 07/03/17 01:42 Heparin 71166 Units/250ml 1/2 Normal Saline IV 12 units/kg/hr .Q24H PRN 7.947 mls/hr TITRATE PER PROTOCOL Administration Protocol 12 UNITS/KG/HR Propofol 1,000 mg in 100 mls @ 1.926 mls/hr 07/03/17 09:24 07/07/17 06:00 Diprivan IV 18 mcg/kg/min .Q24H PRN 6.935 mls/hr TITRATE PER MD ORDER Titration Protocol 5 MCG/KG/MIN Micafungin Sodium 100 mg/ 100 mls @ 100 mls/hr 07/04/17 20:00 07/06/17 20:00 Sodium Chloride IV 100 mls/hr Q24H ASIM Administration Insulin Human Regular 0 unit 06/27/17 13:02 07/07/17 16:33 Novolin R SC Not Given Q6 ASIM Protocol Lorazepam 2 mg 07/03/17 09:24 07/04/17 14:43 Ativan IVP 2 mg Q6H PRN Administration Anxiety Metoprolol Tartrate 25 mg 07/05/17 22:00 07/07/17 09:47 Lopressor PO 25 mg Q12 ASIM Administration Vitamin A 1 ea 07/05/17 18:00 07/07/17 09:48 Vitamin A & D Oint Ud Foilpak TOP 1 ea BID ASIM Administration - Patient Studies Lab Studies: Microbiology Studies 07/03/17 09:30 Blood Culture - Preliminary Blood-Venous NO GROWTH AFTER 4 DAYS Lab Studies 07/07/17 07/07/17 07/07/17 Range/Units 12:09 08:08 06:34 WBC 15.3 H (4.8-10.8) K/uL RBC 2.56 L (3.80-5.20) Mil/uL Hgb 6.7 L (11.0-16.0) g/dL Hct 21.7 L (34.0-47.0) % MCV 84.6 (81.0-99.0) fL MCH 26.0 L (27.0-31.0) pg MCHC 30.7 L (33.0-37.0) g/dL RDW 18.6 H (11.5-14.5) % Plt Count 151 (130-400) K/uL MPV 11.0 (7.2-11.7) fL Neut % (Auto) (50.0-75.0) % Lymph % (Auto) (20.0-40.0) % Gray % (Auto) (0.0-10.0) % Eos % (Auto) (0.0-4.0) % Baso % (Auto) (0.0-2.0) % Neut # (1.8-7.0) K/uL Lymph # (1.0-4.3) K/uL Gray # (0.0-0.8) K/uL Eos # (0.0-0.7) K/uL Baso # (0.0-0.2) K/uL Puncture Site pCO2 (35-45) mm/Hg pO2 (80-100) mm/Hg HCO3 (21-28) mmol/L ABG pH (7.35-7.45) ABG Total CO2 (22-28) mmol/L ABG O2 Saturation (95-98) % ABG Base Excess (-2.0-3.0) mmol/L ABG Hemoglobin (11.7-17.4) g/dL ABG Carboxyhemoglobin (0.5-1.5) % POC ABG HHb (Measured) (0.0-5.0) % ABG Methemoglobin (0.0-3.0) % Jasvir Test A-a O2 Difference mm/Hg Respiratory Index Hgb O2 Saturation (95.0-98.0) % Vent Mode Mechanical Rate FiO2 % Tidal Volume PEEP Sodium 148 (132-148) mmol/L Potassium 4.1 (3.6-5.2) mmol/L Chloride 109 H (98-107) mmol/L Carbon Dioxide 26 (22-30) mmol/L Anion Gap 17 (10-20) BUN 63 H (7-17) mg/dL Creatinine 2.2 H (0.7-1.2) MG/DL Est GFR ( Amer) 26 Est GFR (Non-Af Amer) 22 POC Glucose (mg/dL) 233 H (65-110) mg/dL Random Glucose 172 H (65-105) mg/dL Calcium 7.7 L (8.6-10.4) mg/dl Phosphorus 3.3 (2.5-4.5) mg/dL Magnesium 1.8 (1.6-2.3) mg/dL Total Bilirubin 0.6 (0.2-1.3) mg/dL AST 40 H (14-36) U/L ALT 58 H (9-52) U/L Alkaline Phosphatase 95 (38-126) U/L Lactate Dehydrogenase 933 H (313-618) U/L Total Protein 5.5 L (6.3-8.3) g/dL Albumin 2.5 L (3.5-5.0) g/dL Globulin 2.9 (2.2-3.9) gm/dL Albumin/Globulin Ratio 0.9 L (1.0-2.1) Blood Type Antibody Screen 07/07/17 07/07/17 07/07/17 Range/Units 06:34 06:02 05:20 WBC 14.2 H (4.8-10.8) K/uL RBC 2.29 L (3.80-5.20) Mil/uL Hgb 6.3 L* (11.0-16.0) g/dL Hct 19.5 L (34.0-47.0) % MCV 85.3 (81.0-99.0) fL MCH 27.5 (27.0-31.0) pg MCHC 32.2 L (33.0-37.0) g/dL RDW 18.4 H (11.5-14.5) % Plt Count 141 (130-400) K/uL MPV 11.5 (7.2-11.7) fL Neut % (Auto) 77.5 H (50.0-75.0) % Lymph % (Auto) 14.4 L (20.0-40.0) % Gray % (Auto) 3.4 (0.0-10.0) % Eos % (Auto) 3.9 (0.0-4.0) % Baso % (Auto) 0.8 (0.0-2.0) % Neut # 11.0 H (1.8-7.0) K/uL Lymph # 2.0 (1.0-4.3) K/uL Gray # 0.5 (0.0-0.8) K/uL Eos # 0.6 (0.0-0.7) K/uL Baso # 0.1 (0.0-0.2) K/uL Puncture Site Rr pCO2 40 (35-45) mm/Hg pO2 114 H (80-100) mm/Hg HCO3 27.6 (21-28) mmol/L ABG pH 7.45 (7.35-7.45) ABG Total CO2 29.0 H (22-28) mmol/L ABG O2 Saturation 99.2 H (95-98) % ABG Base Excess 3.5 H (-2.0-3.0) mmol/L ABG Hemoglobin 10.5 L (11.7-17.4) g/dL ABG Carboxyhemoglobin 2.1 H (0.5-1.5) % POC ABG HHb (Measured) 0.8 (0.0-5.0) % ABG Methemoglobin 1.6 (0.0-3.0) % Jasvir Test Pos A-a O2 Difference 193.0 mm/Hg Respiratory Index 1.7 Hgb O2 Saturation 95.5 (95.0-98.0) % Vent Mode Prvc Mechanical Rate 10 FiO2 50.0 % Tidal Volume 400 PEEP 5 Sodium (132-148) mmol/L Potassium (3.6-5.2) mmol/L Chloride (98-107) mmol/L Carbon Dioxide (22-30) mmol/L Anion Gap (10-20) BUN (7-17) mg/dL Creatinine (0.7-1.2) MG/DL Est GFR ( Amer) Est GFR (Non-Af Amer) POC Glucose (mg/dL) 225 H (65-110) mg/dL Random Glucose (65-105) mg/dL Calcium (8.6-10.4) mg/dl Phosphorus (2.5-4.5) mg/dL Magnesium (1.6-2.3) mg/dL Total Bilirubin (0.2-1.3) mg/dL AST (14-36) U/L ALT (9-52) U/L Alkaline Phosphatase (38-126) U/L Lactate Dehydrogenase (313-618) U/L Total Protein (6.3-8.3) g/dL Albumin (3.5-5.0) g/dL Globulin (2.2-3.9) gm/dL Albumin/Globulin Ratio (1.0-2.1) Blood Type Antibody Screen 07/06/17 07/06/17 07/06/17 Range/Units 23:40 18:01 07:39 WBC (4.8-10.8) K/uL RBC (3.80-5.20) Mil/uL Hgb (11.0-16.0) g/dL Hct (34.0-47.0) % MCV (81.0-99.0) fL MCH (27.0-31.0) pg MCHC (33.0-37.0) g/dL RDW (11.5-14.5) % Plt Count (130-400) K/uL MPV (7.2-11.7) fL Neut % (Auto) (50.0-75.0) % Lymph % (Auto) (20.0-40.0) % Gray % (Auto) (0.0-10.0) % Eos % (Auto) (0.0-4.0) % Baso % (Auto) (0.0-2.0) % Neut # (1.8-7.0) K/uL Lymph # (1.0-4.3) K/uL Gray # (0.0-0.8) K/uL Eos # (0.0-0.7) K/uL Baso # (0.0-0.2) K/uL Puncture Site pCO2 (35-45) mm/Hg pO2 (80-100) mm/Hg HCO3 (21-28) mmol/L ABG pH (7.35-7.45) ABG Total CO2 (22-28) mmol/L ABG O2 Saturation (95-98) % ABG Base Excess (-2.0-3.0) mmol/L ABG Hemoglobin (11.7-17.4) g/dL ABG Carboxyhemoglobin (0.5-1.5) % POC ABG HHb (Measured) (0.0-5.0) % ABG Methemoglobin (0.0-3.0) % Jasvir Test A-a O2 Difference mm/Hg Respiratory Index Hgb O2 Saturation (95.0-98.0) % Vent Mode Mechanical Rate FiO2 % Tidal Volume PEEP Sodium (132-148) mmol/L Potassium (3.6-5.2) mmol/L Chloride (98-107) mmol/L Carbon Dioxide (22-30) mmol/L Anion Gap (10-20) BUN (7-17) mg/dL Creatinine (0.7-1.2) MG/DL Est GFR ( Amer) Est GFR (Non-Af Amer) POC Glucose (mg/dL) 242 H 213 H (65-110) mg/dL Random Glucose (65-105) mg/dL Calcium (8.6-10.4) mg/dl Phosphorus (2.5-4.5) mg/dL Magnesium (1.6-2.3) mg/dL Total Bilirubin (0.2-1.3) mg/dL AST (14-36) U/L ALT (9-52) U/L Alkaline Phosphatase (38-126) U/L Lactate Dehydrogenase (313-618) U/L Total Protein (6.3-8.3) g/dL Albumin (3.5-5.0) g/dL Globulin (2.2-3.9) gm/dL Albumin/Globulin Ratio (1.0-2.1) Blood Type A POSITIVE Antibody Screen Negative Laboratory Results - last 24 hr 07/06/17 07/06/17 07/06/17 07:39 18:01 23:40 WBC RBC Hgb Hct MCV MCH MCHC RDW Plt Count MPV Neut % (Auto) Lymph % (Auto) Gray % (Auto) Eos % (Auto) Baso % (Auto) Neut # Lymph # Gray # Eos # Baso # Puncture Site pCO2 pO2 HCO3 ABG pH ABG Total CO2 ABG O2 Saturation ABG Base Excess ABG Hemoglobin ABG Carboxyhemoglobin POC ABG HHb (Measured) ABG Methemoglobin Jasvir Test A-a O2 Difference Respiratory Index Hgb O2 Saturation Vent Mode Mechanical Rate FiO2 Tidal Volume PEEP Sodium Potassium Chloride Carbon Dioxide Anion Gap BUN Creatinine Est GFR ( Amer) Est GFR (Non-Af Amer) POC Glucose (mg/dL) 213 H 242 H Random Glucose Calcium Phosphorus Magnesium Total Bilirubin AST ALT Alkaline Phosphatase Lactate Dehydrogenase Total Protein Albumin Globulin Albumin/Globulin Ratio Blood Type A POSITIVE Antibody Screen Negative 07/07/17 07/07/17 07/07/17 05:20 06:02 06:34 WBC 14.2 H RBC 2.29 L Hgb 6.3 L* Hct 19.5 L MCV 85.3 MCH 27.5 MCHC 32.2 L RDW 18.4 H Plt Count 141 MPV 11.5 Neut % (Auto) 77.5 H Lymph % (Auto) 14.4 L Gray % (Auto) 3.4 Eos % (Auto) 3.9 Baso % (Auto) 0.8 Neut # 11.0 H Lymph # 2.0 Gray # 0.5 Eos # 0.6 Baso # 0.1 Puncture Site Rr pCO2 40 pO2 114 H HCO3 27.6 ABG pH 7.45 ABG Total CO2 29.0 H ABG O2 Saturation 99.2 H ABG Base Excess 3.5 H ABG Hemoglobin 10.5 L ABG Carboxyhemoglobin 2.1 H POC ABG HHb (Measured) 0.8 ABG Methemoglobin 1.6 Jasvir Test Pos A-a O2 Difference 193.0 Respiratory Index 1.7 Hgb O2 Saturation 95.5 Vent Mode Prvc Mechanical Rate 10 FiO2 50.0 Tidal Volume 400 PEEP 5 Sodium Potassium Chloride Carbon Dioxide Anion Gap BUN Creatinine Est GFR ( Amer) Est GFR (Non-Af Amer) POC Glucose (mg/dL) 225 H Random Glucose Calcium Phosphorus Magnesium Total Bilirubin AST ALT Alkaline Phosphatase Lactate Dehydrogenase Total Protein Albumin Globulin Albumin/Globulin Ratio Blood Type Antibody Screen 07/07/17 07/07/17 07/07/17 06:34 08:08 12:09 WBC 15.3 H RBC 2.56 L Hgb 6.7 L Hct 21.7 L MCV 84.6 MCH 26.0 L MCHC 30.7 L RDW 18.6 H Plt Count 151 MPV 11.0 Neut % (Auto) Lymph % (Auto) Gray % (Auto) Eos % (Auto) Baso % (Auto) Neut # Lymph # Gray # Eos # Baso # Puncture Site pCO2 pO2 HCO3 ABG pH ABG Total CO2 ABG O2 Saturation ABG Base Excess ABG Hemoglobin ABG Carboxyhemoglobin POC ABG HHb (Measured) ABG Methemoglobin Jasvir Test A-a O2 Difference Respiratory Index Hgb O2 Saturation Vent Mode Mechanical Rate FiO2 Tidal Volume PEEP Sodium 148 Potassium 4.1 Chloride 109 H Carbon Dioxide 26 Anion Gap 17 BUN 63 H Creatinine 2.2 H Est GFR ( Amer) 26 Est GFR (Non-Af Amer) 22 POC Glucose (mg/dL) 233 H Random Glucose 172 H Calcium 7.7 L Phosphorus 3.3 Magnesium 1.8 Total Bilirubin 0.6 AST 40 H ALT 58 H Alkaline Phosphatase 95 Lactate Dehydrogenase 933 H Total Protein 5.5 L Albumin 2.5 L Globulin 2.9 Albumin/Globulin Ratio 0.9 L Blood Type Antibody Screen Fingerstick Blood Sugar Results: 225 Review of Systems - Review of Systems Systems not reviewed;Unavailable: Intubated Critical Care Progress Note - Vent Settings TIDAL VOLUME:: 400 RESP RATE:: 10 FIO2:: 50 PEEP:: 5 Assessment/Plan - Assessment and Plan (Free Text) Assessment: 77 year old female with history of HTN, DM, CAD, presented initially c/o chest pain. Patient had syncopal episode when BLS arrived and became diaphoretic and bradycardic. ALS arrived, patient had episode of vomiting, intubated for airway protection. Patient had NSTEMI with elevated troponins. Patient was severely anemic on presentation (Hgb 6.5), s/p prbc, 8.9. Patient had EDG 8/22/17, showed small hiatal hernia and acute gastritis. Patient was placed on CPAP trial and then extubated on 06/29/17. Patient c/o nausea and SOB post- extubation. Patient placed on BiPAP prn. Overnight, patient went into a-fib, started on cardizem drip and heparin drip. Patient converted to normal sinus rhythm, and cardizem drip was being tapered. In the afternoon, patient in afib, started on metoproplol, cardizem drip continued (06/30/17). Patient started on metoprolol and was given one dose of digoxin for afib, 07/01/17. Neuro: - discontinued propofol 5 mcg/kg/min iv - lorazepam 2mg iv q6 prn for agitation Pulm: - on ventilator - Patient was extubated on 06/29/17, on BiPAP, then reintubated on 07/03/17 - Acute respiratory failure with hypoxemia secondary to pulmonary edema - CXR: showing worsening infiltrative changes, likely pneumonia - albuterol CV: NSTEMI; CHF; A-Fib resolved - Troponin: 0.25, 3.11, 4.03, 2.84 (trending down) - A-fib resolved - amiodarone 200mg po bid - Off pressors - NS@100ml/hr - Echo: EF 35%; moderately impaired LV systolic function; mild hypokinesis of posterior wall; grade-II pseudonormal diastolic dysfunction; elevated LA pressure; mod dilated LA; Trace AR; Aortic valve mildly sclerotic. - Started metoprolol 25mg po q12 - Cardiology consulted: Dr. Arshad - As per Dr. Arshad, cannot do cardiac cath due to elevated Cr. Endo: no acute issues - ISS GI: echogenic liver seen on U/S; gastritis - GI consulted: Dr. Mendoza, help appreciated - EGD (06/28/17): small hiatal hernia, acute gastritis (biopsied) - EDG and colonoscopy in 02/2017, 5mm polyp resected; congested mucosa in descending colon, non-bleeding external, internal hemorrhoids. 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 - Hypokalemia: gave KCl - at high risk for contrast nephropathy w/ cardiac cath ID: Leokocytosis - CXR: showing worsening infiltrative changes, likely pneumonia - Continue Zosyn 2.25 g iv q8 - Hold Vancomycin-->vanco trough 20.1 - Urine culture 07/03 growing yeast species - continue micafungin 100mg q24 - sputum culture 07/03 negative - blood culture 07/03 no growth up to date - UA: 1+ protein, 3+ blood, 15 WBC, 60 RBC - Infectious disease consulted, Dr Reese Prophylaxis: - DVT: SCDs; on heparin drip for a-fib - GI: Pepcid daily - Swallow eval: failed on 06/30/17 <Steve Muñoz P - Last Filed: 07/07/17 21:58> CCU Objective - Vital Signs / Intake & Output Vital Signs (Last 4 hours): Vital Signs Pulse Resp BP Pulse Ox 07/07/17 18:00 69 20 145/58 L 100 Intake and Output (Last 8hrs): Intake & Output 07/07/17 07/07/17 07/07/17 06:59 14:59 22:59 Intake Total 477 697.6 197.6 Output Total 310 555 475 Balance 167 142.6 -277.4 Intake: IV 90 10 Intake, IV Amount -13 27.6 27.6 Right Hand -13 27.6 27.6 Tube Feeding 400 345 160 Blood Product 325 Red Blood Cells Cpd As1 325 Lr Unit [id number] Output: Urine 310 555 275 Urethral (Neff) 310 555 275 Stool 200 Other: # Bowel Movements 0 0 - Medications Active Medications: Active Medications Generic Name Dose Route Start Last Admin Trade Name Freq PRN Reason Stop Dose Admin Albuterol/Ipratropium 3 ml 07/04/17 08:00 07/07/17 19:42 Duoneb 3 Mg/0.5 Mg (3 Ml) Ud INH 3 ml RQ6 ASIM Administration Amiodarone HCl 200 mg 07/04/17 23:15 07/07/17 17:26 Cordarone PO 200 mg BID ASIM Administration Famotidine 20 mg 06/26/17 10:00 07/07/17 09:48 Pepcid IVP 20 mg DAILY ASIM Administration Piperacillin Sod/Tazobactam Sod 2.25 gm in 50 mls @ 100 mls/hr 06/26/17 09:00 07/07/17 17:26 Zosyn 2.25 Gm Iv Premix IVPB 100 mls/hr Q8H ASIM Administration Vancomycin/Sodium Chloride 1 gm in 200 mls @ 133.333 mls/hr 06/27/17 12:00 13:00 Vancocin IVPB Not Given Q24H ASIM Heparin Sodium/Sodium Chloride 25,000 units in 250 mls @ 7.947 mls/hr 08:36 07/03/17 01:42 Heparin 31719 Units/250ml 1/2 Normal Saline IV 12 units/kg/hr .Q24H PRN 7.947 mls/hr TITRATE PER PROTOCOL Administration Protocol 12 UNITS/KG/HR Propofol 1,000 mg in 100 mls @ 1.926 mls/hr 07/03/17 09:24 07/07/17 17:29 Diprivan IV 17.9 mcg/kg/min .Q24H PRN 6.9 mls/hr TITRATE PER MD ORDER Administration Protocol 5 MCG/KG/MIN Micafungin Sodium 100 mg/ 100 mls @ 100 mls/hr 07/04/17 20:00 07/07/17 19:33 Sodium Chloride IV 100 mls/hr Q24H ASIM Administration Insulin Human Regular 0 unit 06/27/17 13:02 07/07/17 17:59 Novolin R SC 4 unit Q6 ASIM Administration Protocol Lorazepam 2 mg 07/03/17 09:24 07/04/17 14:43 Ativan IVP 2 mg Q6H PRN Administration Anxiety Metoprolol Tartrate 25 mg 07/05/17 22:00 07/07/17 09:47 Lopressor PO 25 mg Q12 ASIM Administration Vitamin A 1 ea 07/05/17 18:00 07/07/17 17:27 Vitamin A & D Oint Ud Foilpak TOP 1 ea BID ASIM Administration - Patient Studies Lab Studies: Microbiology Studies 07/03/17 09:30 Blood Culture - Preliminary Blood-Venous NO GROWTH AFTER 4 DAYS Lab Studies 07/07/17 07/07/17 07/07/17 Range/Units 17:42 12:09 08:08 WBC 15.3 H (4.8-10.8) K/uL RBC 2.56 L (3.80-5.20) Mil/uL Hgb 6.7 L (11.0-16.0) g/dL Hct 21.7 L (34.0-47.0) % MCV 84.6 (81.0-99.0) fL MCH 26.0 L (27.0-31.0) pg MCHC 30.7 L (33.0-37.0) g/dL RDW 18.6 H (11.5-14.5) % Plt Count 151 (130-400) K/uL MPV 11.0 (7.2-11.7) fL Neut % (Auto) (50.0-75.0) % Lymph % (Auto) (20.0-40.0) % Gray % (Auto) (0.0-10.0) % Eos % (Auto) (0.0-4.0) % Baso % (Auto) (0.0-2.0) % Neut # (1.8-7.0) K/uL Lymph # (1.0-4.3) K/uL Gray # (0.0-0.8) K/uL Eos # (0.0-0.7) K/uL Baso # (0.0-0.2) K/uL Puncture Site pCO2 (35-45) mm/Hg pO2 (80-100) mm/Hg HCO3 (21-28) mmol/L ABG pH (7.35-7.45) ABG Total CO2 (22-28) mmol/L ABG O2 Saturation (95-98) % ABG Base Excess (-2.0-3.0) mmol/L ABG Hemoglobin (11.7-17.4) g/dL ABG Carboxyhemoglobin (0.5-1.5) % POC ABG HHb (Measured) (0.0-5.0) % ABG Methemoglobin (0.0-3.0) % Jasvir Test A-a O2 Difference mm/Hg Respiratory Index Hgb O2 Saturation (95.0-98.0) % Vent Mode Mechanical Rate FiO2 % Tidal Volume PEEP Sodium (132-148) mmol/L Potassium (3.6-5.2) mmol/L Chloride (98-107) mmol/L Carbon Dioxide (22-30) mmol/L Anion Gap (10-20) BUN (7-17) mg/dL Creatinine (0.7-1.2) MG/DL Est GFR ( Amer) Est GFR (Non-Af Amer) POC Glucose (mg/dL) 252 H 233 H (65-110) mg/dL Random Glucose (65-105) mg/dL Calcium (8.6-10.4) mg/dl Phosphorus (2.5-4.5) mg/dL Magnesium (1.6-2.3) mg/dL Total Bilirubin (0.2-1.3) mg/dL AST (14-36) U/L ALT (9-52) U/L Alkaline Phosphatase (38-126) U/L Lactate Dehydrogenase (313-618) U/L Total Protein (6.3-8.3) g/dL Albumin (3.5-5.0) g/dL Globulin (2.2-3.9) gm/dL Albumin/Globulin Ratio (1.0-2.1) Blood Type Antibody Screen 07/07/17 07/07/17 07/07/17 Range/Units 06:34 06:34 06:02 WBC 14.2 H (4.8-10.8) K/uL RBC 2.29 L (3.80-5.20) Mil/uL Hgb 6.3 L* (11.0-16.0) g/dL Hct 19.5 L (34.0-47.0) % MCV 85.3 (81.0-99.0) fL MCH 27.5 (27.0-31.0) pg MCHC 32.2 L (33.0-37.0) g/dL RDW 18.4 H (11.5-14.5) % Plt Count 141 (130-400) K/uL MPV 11.5 (7.2-11.7) fL Neut % (Auto) 77.5 H (50.0-75.0) % Lymph % (Auto) 14.4 L (20.0-40.0) % Gray % (Auto) 3.4 (0.0-10.0) % Eos % (Auto) 3.9 (0.0-4.0) % Baso % (Auto) 0.8 (0.0-2.0) % Neut # 11.0 H (1.8-7.0) K/uL Lymph # 2.0 (1.0-4.3) K/uL Gray # 0.5 (0.0-0.8) K/uL Eos # 0.6 (0.0-0.7) K/uL Baso # 0.1 (0.0-0.2) K/uL Puncture Site pCO2 (35-45) mm/Hg pO2 (80-100) mm/Hg HCO3 (21-28) mmol/L ABG pH (7.35-7.45) ABG Total CO2 (22-28) mmol/L ABG O2 Saturation (95-98) % ABG Base Excess (-2.0-3.0) mmol/L ABG Hemoglobin (11.7-17.4) g/dL ABG Carboxyhemoglobin (0.5-1.5) % POC ABG HHb (Measured) (0.0-5.0) % ABG Methemoglobin (0.0-3.0) % Jasvir Test A-a O2 Difference mm/Hg Respiratory Index Hgb O2 Saturation (95.0-98.0) % Vent Mode Mechanical Rate FiO2 % Tidal Volume PEEP Sodium 148 (132-148) mmol/L Potassium 4.1 (3.6-5.2) mmol/L Chloride 109 H (98-107) mmol/L Carbon Dioxide 26 (22-30) mmol/L Anion Gap 17 (10-20) BUN 63 H (7-17) mg/dL Creatinine 2.2 H (0.7-1.2) MG/DL Est GFR ( Amer) 26 Est GFR (Non-Af Amer) 22 POC Glucose (mg/dL) 225 H (65-110) mg/dL Random Glucose 172 H (65-105) mg/dL Calcium 7.7 L (8.6-10.4) mg/dl Phosphorus 3.3 (2.5-4.5) mg/dL Magnesium 1.8 (1.6-2.3) mg/dL Total Bilirubin 0.6 (0.2-1.3) mg/dL AST 40 H (14-36) U/L ALT 58 H (9-52) U/L Alkaline Phosphatase 95 (38-126) U/L Lactate Dehydrogenase 933 H (313-618) U/L Total Protein 5.5 L (6.3-8.3) g/dL Albumin 2.5 L (3.5-5.0) g/dL Globulin 2.9 (2.2-3.9) gm/dL Albumin/Globulin Ratio 0.9 L (1.0-2.1) Blood Type Antibody Screen 07/07/17 07/06/17 07/06/17 Range/Units 05:20 23:40 07:39 WBC (4.8-10.8) K/uL RBC (3.80-5.20) Mil/uL Hgb (11.0-16.0) g/dL Hct (34.0-47.0) % MCV (81.0-99.0) fL MCH (27.0-31.0) pg MCHC (33.0-37.0) g/dL RDW (11.5-14.5) % Plt Count (130-400) K/uL MPV (7.2-11.7) fL Neut % (Auto) (50.0-75.0) % Lymph % (Auto) (20.0-40.0) % Gray % (Auto) (0.0-10.0) % Eos % (Auto) (0.0-4.0) % Baso % (Auto) (0.0-2.0) % Neut # (1.8-7.0) K/uL Lymph # (1.0-4.3) K/uL Gray # (0.0-0.8) K/uL Eos # (0.0-0.7) K/uL Baso # (0.0-0.2) K/uL Puncture Site Rr pCO2 40 (35-45) mm/Hg pO2 114 H (80-100) mm/Hg HCO3 27.6 (21-28) mmol/L ABG pH 7.45 (7.35-7.45) ABG Total CO2 29.0 H (22-28) mmol/L ABG O2 Saturation 99.2 H (95-98) % ABG Base Excess 3.5 H (-2.0-3.0) mmol/L ABG Hemoglobin 10.5 L (11.7-17.4) g/dL ABG Carboxyhemoglobin 2.1 H (0.5-1.5) % POC ABG HHb (Measured) 0.8 (0.0-5.0) % ABG Methemoglobin 1.6 (0.0-3.0) % Jasvir Test Pos A-a O2 Difference 193.0 mm/Hg Respiratory Index 1.7 Hgb O2 Saturation 95.5 (95.0-98.0) % Vent Mode Prvc Mechanical Rate 10 FiO2 50.0 % Tidal Volume 400 PEEP 5 Sodium (132-148) mmol/L Potassium (3.6-5.2) mmol/L Chloride (98-107) mmol/L Carbon Dioxide (22-30) mmol/L Anion Gap (10-20) BUN (7-17) mg/dL Creatinine (0.7-1.2) MG/DL Est GFR ( Amer) Est GFR (Non-Af Amer) POC Glucose (mg/dL) 242 H (65-110) mg/dL Random Glucose (65-105) mg/dL Calcium (8.6-10.4) mg/dl Phosphorus (2.5-4.5) mg/dL Magnesium (1.6-2.3) mg/dL Total Bilirubin (0.2-1.3) mg/dL AST (14-36) U/L ALT (9-52) U/L Alkaline Phosphatase (38-126) U/L Lactate Dehydrogenase (313-618) U/L Total Protein (6.3-8.3) g/dL Albumin (3.5-5.0) g/dL Globulin (2.2-3.9) gm/dL Albumin/Globulin Ratio (1.0-2.1) Blood Type A POSITIVE Antibody Screen Negative Laboratory Results - last 24 hr 07/06/17 07/06/17 07/07/17 07:39 23:40 05:20 WBC RBC Hgb Hct MCV MCH MCHC RDW Plt Count MPV Neut % (Auto) Lymph % (Auto) Gray % (Auto) Eos % (Auto) Baso % (Auto) Neut # Lymph # Gray # Eos # Baso # Puncture Site Rr pCO2 40 pO2 114 H HCO3 27.6 ABG pH 7.45 ABG Total CO2 29.0 H ABG O2 Saturation 99.2 H ABG Base Excess 3.5 H ABG Hemoglobin 10.5 L ABG Carboxyhemoglobin 2.1 H POC ABG HHb (Measured) 0.8 ABG Methemoglobin 1.6 Jasvir Test Pos A-a O2 Difference 193.0 Respiratory Index 1.7 Hgb O2 Saturation 95.5 Vent Mode Prvc Mechanical Rate 10 FiO2 50.0 Tidal Volume 400 PEEP 5 Sodium Potassium Chloride Carbon Dioxide Anion Gap BUN Creatinine Est GFR ( Amer) Est GFR (Non-Af Amer) POC Glucose (mg/dL) 242 H Random Glucose Calcium Phosphorus Magnesium Total Bilirubin AST ALT Alkaline Phosphatase Lactate Dehydrogenase Total Protein Albumin Globulin Albumin/Globulin Ratio Blood Type A POSITIVE Antibody Screen Negative 07/07/17 07/07/17 07/07/17 06:02 06:34 06:34 WBC 14.2 H RBC 2.29 L Hgb 6.3 L* Hct 19.5 L MCV 85.3 MCH 27.5 MCHC 32.2 L RDW 18.4 H Plt Count 141 MPV 11.5 Neut % (Auto) 77.5 H Lymph % (Auto) 14.4 L Gray % (Auto) 3.4 Eos % (Auto) 3.9 Baso % (Auto) 0.8 Neut # 11.0 H Lymph # 2.0 Gray # 0.5 Eos # 0.6 Baso # 0.1 Puncture Site pCO2 pO2 HCO3 ABG pH ABG Total CO2 ABG O2 Saturation ABG Base Excess ABG Hemoglobin ABG Carboxyhemoglobin POC ABG HHb (Measured) ABG Methemoglobin Jasvir Test A-a O2 Difference Respiratory Index Hgb O2 Saturation Vent Mode Mechanical Rate FiO2 Tidal Volume PEEP Sodium 148 Potassium 4.1 Chloride 109 H Carbon Dioxide 26 Anion Gap 17 BUN 63 H Creatinine 2.2 H Est GFR ( Amer) 26 Est GFR (Non-Af Amer) 22 POC Glucose (mg/dL) 225 H Random Glucose 172 H Calcium 7.7 L Phosphorus 3.3 Magnesium 1.8 Total Bilirubin 0.6 AST 40 H ALT 58 H Alkaline Phosphatase 95 Lactate Dehydrogenase 933 H Total Protein 5.5 L Albumin 2.5 L Globulin 2.9 Albumin/Globulin Ratio 0.9 L Blood Type Antibody Screen 07/07/17 07/07/17 07/07/17 08:08 12:09 17:42 WBC 15.3 H RBC 2.56 L Hgb 6.7 L Hct 21.7 L MCV 84.6 MCH 26.0 L MCHC 30.7 L RDW 18.6 H Plt Count 151 MPV 11.0 Neut % (Auto) Lymph % (Auto) Gray % (Auto) Eos % (Auto) Baso % (Auto) Neut # Lymph # Gray # Eos # Baso # Puncture Site pCO2 pO2 HCO3 ABG pH ABG Total CO2 ABG O2 Saturation ABG Base Excess ABG Hemoglobin ABG Carboxyhemoglobin POC ABG HHb (Measured) ABG Methemoglobin Jasvir Test A-a O2 Difference Respiratory Index Hgb O2 Saturation Vent Mode Mechanical Rate FiO2 Tidal Volume PEEP Sodium Potassium Chloride Carbon Dioxide Anion Gap BUN Creatinine Est GFR ( Amer) Est GFR (Non-Af Amer) POC Glucose (mg/dL) 233 H 252 H Random Glucose Calcium Phosphorus Magnesium Total Bilirubin AST ALT Alkaline Phosphatase Lactate Dehydrogenase Total Protein Albumin Globulin Albumin/Globulin Ratio Blood Type Antibody Screen Attending/Attestation - Attestation I have personally seen and examined this patient.: Yes I have fully participated in the care of the patient.: Yes I have reviewed all pertinent clinical information: Yes Notes (Text): Assessment Resp failure with chf, pulm edema inbated, extubated, reintubated, yesterday failed T piece trial today tolerated cpap ps of 12 PNA on vanco/zosyn, UTI mycofungin PAF now sinus can not anticagulate due to GI bleeding Anemia needing transfusion transfused today, PUD, s/p endoscopy this admission CRI stable, respond to diuresis
[2017-07-07] MEDS: Propofol 10 mg/ml 1,000 MG/100 ML VIAL IV PRN (17:29)
[2017-07-07] MEDS: Micafungin 100 MG in Sodium Chloride 0.9% 100 ML IV SCH (19:33)
--- NOTE | 2017-07-07 23:06 | CP.PCM.PN ---
Subjective - Date & Time of Evaluation Date of Evaluation: 07/06/17 Time of Evaluation: 19:40 - Subjective Subjective: Coverage Notes for Dr. Arshad Patient seen and evaluated S/P [facility] Pneumonia Hemodynamically stable D/W Grand daughter at bedside Physical Examination - Constitutional Appears: No Acute Distress, Chronically Ill - Head Exam Head Exam: ATRAUMATIC, NORMOCEPHALIC - Eye Exam Eye Exam: EOMI - ENT Exam ENT Exam: Mucous Membranes Moist - Respiratory Exam Respiratory Exam: Decreased Breath Sounds. absent: Wheezes, Respiratory Distress - Cardiovascular Exam Cardiovascular Exam: Irregular Rhythm, +S1, +S2 - GI/Abdominal Exam GI & Abdominal Exam: Normal Bowel Sounds - Back Exam Back Exam: NORMAL INSPECTION - Neurological Exam Neurological Exam: Alert, Awake - Skin Skin Exam: Dry, Warm Objective - Vital Signs/Intake and Output Vital Signs (last 24 hours): Temp Pulse Resp BP Pulse Ox 98.0 F 69 20 140/55 L 100 07/07/17 16:00 07/07/17 18:00 07/07/17 18:00 07/07/17 21:55 07/07/17 18:00 Intake and Output: 07/07/17 07/08/17 18:59 06:59 Intake Total 895.2 Output Total 1030 Balance -134.8 - Medications Medications: Current Medications Albuterol/Ipratropium (Duoneb 3 Mg/0.5 Mg (3 Ml) Ud) 3 ml INH RQ6 [facility] Last Admin: 07/07/17 19:42 Dose: 3 ml Amiodarone HCl (Cordarone) 200 mg PO BID [facility] Last Admin: 07/07/17 17:26 Dose: 200 mg Famotidine (Pepcid) 20 mg IVP DAILY [facility] Last Admin: 07/07/17 09:48 Dose: 20 mg Piperacillin Sod/Tazobactam Sod (Zosyn 2.25 Gm Iv Premix) 2.25 gm in 50 mls @ 100 mls/hr IVPB Q8H [facility] Last Admin: 07/07/17 17:26 Dose: 100 mls/hr Vancomycin/Sodium Chloride (Vancocin) 1 gm in 200 mls @ 133.333 mls/hr IVPB Q24H [facility] Last Admin: 06/28/17 13:00 Dose: Not Given Heparin Sodium/Sodium Chloride (Heparin 64586 Units/250ml 1/2 Normal Saline) 25 ,000 units in 250 mls @ 7.947 mls/hr IV .Q24H PRN; Protocol; 12 UNITS/KG/HR PRN Reason: TITRATE PER PROTOCOL Last Admin: 07/03/17 01:42 Dose: 12 units/kg/hr, 7.947 mls/hr Propofol (Diprivan) 1,000 mg in 100 mls @ 1.926 mls/hr IV .Q24H PRN; Protocol; 5 MCG/KG/MIN PRN Reason: TITRATE PER MD ORDER Last Admin: 07/07/17 17:29 Dose: 17.9 mcg/kg/min, 6.9 mls/hr Micafungin Sodium 100 mg/ (Sodium Chloride) 100 mls @ 100 mls/hr IV Q24H [facility] Last Admin: 07/07/17 19:33 Dose: 100 mls/hr Insulin Human Regular (Novolin R) 0 unit SC Q6 [facility] PRN Reason: Protocol Last Admin: 07/07/17 17:59 Dose: 4 unit Lorazepam (Ativan) 2 mg IVP Q6H PRN PRN Reason: Anxiety Last Admin: 07/04/17 14:43 Dose: 2 mg Metoprolol Tartrate (Lopressor) 25 mg PO Q12 [facility] Last Admin: 07/07/17 21:55 Dose: 25 mg Vitamin A (Vitamin A & D Oint Ud Foilpak) 1 ea TOP BID [facility] Last Admin: 07/07/17 17:27 Dose: 1 ea - Labs Labs: 07/07/17 08:08 07/07/17 06:34 PT 14.1 SECONDS (9.7-12.2) H 07/02/17 07:13 INR 1.3 07/02/17 07:13 APTT 49 SECONDS (21-34) H 07/03/17 06:20 Assessment and Plan - Assessment and Plan (Free Text) Assessment: Systolic CHF -Echocardiogram reviewed, EF 35%, moderate mitral regurg -CXR Review, pulmonary venous congestion -Plan for further coronary workup once respiratory and renal function improve -Start Lasix 40mg IV daily -Continue metorporlol, enalapril, spironolactone Paroxysmal afib, controlled -Continue amiodarone 200mg PO BID -Hold anticoagulation therapy due to GI bleed Management per ICU team
--- NOTE | 2017-07-07 23:08 | CP.PCM.PN ---
Subjective - Date & Time of Evaluation Date of Evaluation: 07/07/17 Time of Evaluation: 18:40 - Subjective Subjective: Coverage Notes for Dr. Arshad Patient seen and evaluated No new events noted Pneumonia Respiratory failure On Mechanical ventilation Physical Examination - Constitutional Appears: No Acute Distress, Chronically Ill - Head Exam Head Exam: ATRAUMATIC, NORMOCEPHALIC - Eye Exam Eye Exam: EOMI - ENT Exam ENT Exam: Mucous Membranes Moist - Respiratory Exam Respiratory Exam: Decreased Breath Sounds. absent: Wheezes, Respiratory Distress - Cardiovascular Exam Cardiovascular Exam: Irregular Rhythm, +S1, +S2 - GI/Abdominal Exam GI & Abdominal Exam: Normal Bowel Sounds - Back Exam Back Exam: NORMAL INSPECTION - Neurological Exam Neurological Exam: Alert, Awake - Skin Skin Exam: Dry, Warm Objective - Vital Signs/Intake and Output Vital Signs (last 24 hours): Temp Pulse Resp BP Pulse Ox 98.0 F 69 20 140/55 L 100 07/07/17 16:00 07/07/17 18:00 07/07/17 18:00 07/07/17 21:55 07/07/17 18:00 Intake and Output: 07/07/17 07/08/17 18:59 06:59 Intake Total 895.2 Output Total 1030 Balance -134.8 - Medications Medications: Current Medications Albuterol/Ipratropium (Duoneb 3 Mg/0.5 Mg (3 Ml) Ud) 3 ml INH RQ6 [facility] Last Admin: 07/07/17 19:42 Dose: 3 ml Amiodarone HCl (Cordarone) 200 mg PO BID [facility] Last Admin: 07/07/17 17:26 Dose: 200 mg Famotidine (Pepcid) 20 mg IVP DAILY [facility] Last Admin: 07/07/17 09:48 Dose: 20 mg Piperacillin Sod/Tazobactam Sod (Zosyn 2.25 Gm Iv Premix) 2.25 gm in 50 mls @ 100 mls/hr IVPB Q8H [facility] Last Admin: 07/07/17 17:26 Dose: 100 mls/hr Vancomycin/Sodium Chloride (Vancocin) 1 gm in 200 mls @ 133.333 mls/hr IVPB Q24H [facility] Last Admin: 06/28/17 13:00 Dose: Not Given Heparin Sodium/Sodium Chloride (Heparin 60471 Units/250ml 1/2 Normal Saline) 25 ,000 units in 250 mls @ 7.947 mls/hr IV .Q24H PRN; Protocol; 12 UNITS/KG/HR PRN Reason: TITRATE PER PROTOCOL Last Admin: 07/03/17 01:42 Dose: 12 units/kg/hr, 7.947 mls/hr Propofol (Diprivan) 1,000 mg in 100 mls @ 1.926 mls/hr IV .Q24H PRN; Protocol; 5 MCG/KG/MIN PRN Reason: TITRATE PER MD ORDER Last Admin: 07/07/17 17:29 Dose: 17.9 mcg/kg/min, 6.9 mls/hr Micafungin Sodium 100 mg/ (Sodium Chloride) 100 mls @ 100 mls/hr IV Q24H [facility] Last Admin: 07/07/17 19:33 Dose: 100 mls/hr Insulin Human Regular (Novolin R) 0 unit SC Q6 [facility] PRN Reason: Protocol Last Admin: 07/07/17 17:59 Dose: 4 unit Lorazepam (Ativan) 2 mg IVP Q6H PRN PRN Reason: Anxiety Last Admin: 07/04/17 14:43 Dose: 2 mg Metoprolol Tartrate (Lopressor) 25 mg PO Q12 [facility] Last Admin: 07/07/17 21:55 Dose: 25 mg Vitamin A (Vitamin A & D Oint Ud Foilpak) 1 ea TOP BID [facility] Last Admin: 07/07/17 17:27 Dose: 1 ea - Labs Labs: 07/07/17 08:08 07/07/17 06:34 PT 14.1 SECONDS (9.7-12.2) H 07/02/17 07:13 INR 1.3 07/02/17 07:13 APTT 49 SECONDS (21-34) H 07/03/17 06:20 Assessment and Plan - Assessment and Plan (Free Text) Assessment: Systolic CHF -Echocardiogram reviewed, EF 35%, moderate mitral regurg -CXR Review, pulmonary venous congestion -Plan for further coronary workup once respiratory and renal function improve -Start Lasix 40mg IV daily -Continue metorporlol, enalapril, spironolactone Paroxysmal afib, controlled -Continue amiodarone 200mg PO BID -Hold anticoagulation therapy due to GI bleed Management per ICU team
[2017-07-08] MEDS: Piperacill/Tazo 2.25gm in Dex 2.25 GM/50 ML BAG IVPB SCH ×2 (00:17→09:58)
[2017-07-08] MEDS: (Novolin R) Insulin Human Regular 100 units/ml vial SC SCH ×4 (00:17→18:53)
[2017-07-08] MEDS: Albuterol-Ipratrop 3 mg / 0.5 (3 ml) UD INH SCH ×4 (01:47→19:36)
[2017-07-08 06:08] LABS: ABG ALLEN TEST POS; ABG MECHANICAL RATE 10; ARTERIAL BLOOD GAS MODE PRVC; ARTERIAL BLOOD HGB O2 SAT 95.9 % (95.0-98.0); ATERIAL BLOOD GAS PEEP 5; CARBOXYHEMOGLOBIN 2.4 % (0.5-1.5); DRAW SITE R RAD; HHB 0.3 % (0.0-5.0); METHEMOGLOBIN 1.4 % (0.0-3.0)
[2017-07-08 06:31] LABS: BASO # 0.1 K/uL (0.0-0.2); BASO % 0.5 % (0.0-2.0); EOS # 0.5 K/uL (0.0-0.7); EOS % 3.3 % (0.0-4.0); HEMATOCRIT 27.5 % (34.0-47.0); LYMPH # 2.1 K/uL (1.0-4.3); LYMPH % 14.1 % (20.0-40.0); MEAN CELL VOLUME 82.3 fL (81.0-99.0); MEAN CORPUSCULAR HEMOGLOBIN 25.2 pg (27.0-31.0); MEAN CORPUSCULAR HGB CONC 30.7 g/dL (33.0-37.0); MEAN PLATELET VOLUME 10.8 fL (7.2-11.7); MONO # 0.7 K/uL (0.0-0.8); MONO % 4.5 % (0.0-10.0); NRBC % 0.1 % (0.0-2.0); RED CELL DISTRIBUTION WIDTH 20.1 % (11.5-14.5); WHITE BLOOD COUNT 15.1 K/uL (4.8-10.8)
[2017-07-08 06:44] LABS: CALCIUM 8.5 mg/dl (8.6-10.4); MAGNESIUM 1.8 mg/dL (1.6-2.3); PHOSPHOROUS 4.3 mg/dL (2.5-4.5); POTASSIUM 4.6 mmol/L (3.6-5.2); TOTAL PROTEIN 5.7 g/dL (6.3-8.3)
[2017-07-08 06:45] LABS: BILIRUBIN,TOTAL 0.7 mg/dL (0.2-1.3)
[2017-07-08] MEDS: Propofol 10 mg/ml 1,000 MG/100 ML VIAL IV PRN (09:58)
[2017-07-08] MEDS: Vitamins A & D Oint UD Foilpak TOP SCH ×2 (09:59→17:26)
--- NOTE | 2017-07-08 10:39 | RAD ---
HISTORY: intubation COMPARISON: Chest x-ray performed 07/07/17 TECHNIQUE: Chest, one view. FINDINGS: Distal tip of an endotracheal tube terminates approximately 5.2 cm above the merary. Nasogastric tube extends expected location of the stomach. LUNGS: Mild pulmonary venous congestion. Mild streaky atelectasis/infiltrate within the medial right lower lobe. PLEURA: No significant pleural effusion identified. No definite pneumothorax . CARDIOVASCULAR: Cardiomegaly. Atherosclerotic calcifications of the aortic knob. OSSEOUS STRUCTURES: Degenerative changes. VISUALIZED UPPER ABDOMEN: Unremarkable. OTHER FINDINGS: None. IMPRESSION: Endotracheal tube. Nasogastric tube. Mild pulmonary venous congestion. Mild streaky atelectasis/infiltrate within the medial right lower lobe.
--- NOTE | 2017-07-08 11:49 | PN ---
DATE: LOCATION: ICU 12. SUBJECTIVE: This 77 years old female seen and examined in rounds earlier this morning without significant clinical changes on Diprivan drip, still intubated to subsequent drop of hemoglobin and hematocrit. The entire chart is reviewed including, but not limited to the most recent lab and the radiology study results, current and previous medication list, and current and previous medical events. Case was discussed with the staff at length. Most recent lab result showed hemoglobin drop to 6.7, hematocrit 21.7 with white blood cells 15.3, but with normal platelet count with abnormal ABGs and increased BUN 63 and creatinine 2.2 with blood glucose level 225 with low calcium 7.7, AST 40, ALT 58 with low albumin 2.5, and low total protein 5.5. PHYSICAL EXAMINATION: GENERAL: This is a 77 years old female. VITAL SIGNS: Afebrile with pulse 72 and blood pressure 130/56. HEENT: Show pale dry oral mucous membrane. Nonicteric sclerae. LUNGS: Few scattered crepitation. Decreased air entry at bases with few rales. The patient is still intubated. ABDOMEN: Soft. Bowel sounds are present with slight distention. No mass or organomegaly. HEART: Positive S1 and S2. EXTREMITIES: Mild edematous changes. No clubbing. No cyanosis. NEUROLOGIC: No reported new neurological deficits, sensory or motor. IMPRESSION: 1. Anemia that could be secondary to chronic disease, status post recurrent gastrointestinal blood loss. 2. Bilateral pneumonia and respiratory failure with the patient intubated. 3. Clinical septicemia. 4. Malnutrition with hypoalbuminemia. 5. Renal insufficiency with dehydration. 6. Electrolyte imbalance with hypocalcemia. SUGGESTIONS: 1. I agree with your plan. 2. The patient is a candidate for PICC insertion and the family signed the consent that to be discussed with admitting medical team. 3. Peripheral hyperalimentation. 4. Further recommendation to follow. Diana Cazares MD cc: Diana Cazares MD
--- NOTE | 2017-07-08 13:19 | CP.PCM.PN ---
Subjective - Date & Time of Evaluation Date of Evaluation: 07/08/17 Time of Evaluation: 13:16 - Subjective Subjective: Remains on vent Still with CHF IV lasix added- agree with this Fe stores low- TSAT=11% s/p blood transfusion creat sl better at 2.0 Objective - Vital Signs/Intake and Output Vital Signs (last 24 hours): Temp Pulse Resp BP Pulse Ox 98.2 F 67 18 147/52 L 97 07/08/17 12:00 07/08/17 12:00 07/08/17 12:00 07/08/17 11:49 07/08/17 12:00 Intake and Output: 07/08/17 07/08/17 06:59 18:59 Intake Total 1165.9 374.5 Output Total 670 390 Balance 495.9 -15.5 - Medications Medications: Current Medications Albuterol/Ipratropium (Duoneb 3 Mg/0.5 Mg (3 Ml) Ud) 3 ml INH RQ6 [facility] Last Admin: 07/08/17 07:32 Dose: 3 ml Amiodarone HCl (Cordarone) 200 mg PO BID [facility] Last Admin: 07/08/17 09:58 Dose: 200 mg Enalapril Maleate (Vasotec) 2.5 mg PO DAILY [facility] Famotidine (Pepcid) 20 mg IVP DAILY [facility] Last Admin: 07/08/17 09:58 Dose: 20 mg Furosemide (Lasix) 40 mg IVP DAILY [facility] Heparin Sodium (Porcine) (Heparin) 5,000 units SC Q12 [facility] Heparin Sodium/Sodium Chloride (Heparin 04359 Units/250ml 1/2 Normal Saline) 25 ,000 units in 250 mls @ 7.947 mls/hr IV .Q24H PRN; Protocol; 12 UNITS/KG/HR PRN Reason: TITRATE PER PROTOCOL Last Admin: 07/03/17 01:42 Dose: 12 units/kg/hr, 7.947 mls/hr Micafungin Sodium 100 mg/ (Sodium Chloride) 100 mls @ 100 mls/hr IV Q24H [facility] Last Admin: 07/07/17 19:33 Dose: 100 mls/hr Insulin Human Regular (Novolin R) 0 unit SC Q6 [facility] PRN Reason: Protocol Last Admin: 07/08/17 06:53 Dose: 3 unit Lorazepam (Ativan) 2 mg IVP Q6H PRN PRN Reason: Anxiety Last Admin: 07/04/17 14:43 Dose: 2 mg Metoprolol Tartrate (Lopressor) 25 mg PO Q12 [facility] Last Admin: 07/08/17 09:57 Dose: 25 mg Spironolactone (Aldactone) 25 mg PO DAILY [facility] Vitamin A (Vitamin A & D Oint Ud Foilpak) 1 ea TOP BID [facility] Last Admin: 07/08/17 09:59 Dose: 1 ea - Labs Labs: 07/08/17 06:19 07/08/17 06:19 PT 14.1 SECONDS (9.7-12.2) H 07/02/17 07:13 INR 1.3 07/02/17 07:13 APTT 49 SECONDS (21-34) H 07/03/17 06:20 - Constitutional Appears: In Acute Distress, Confused, Chronically Ill - Head Exam Head Exam: ATRAUMATIC, NORMAL INSPECTION - Eye Exam Eye Exam: EOMI, Normal appearance - Respiratory Exam Respiratory Exam: Rhonchi, Respiratory Distress - GI/Abdominal Exam GI & Abdominal Exam: Soft. absent: Tenderness - Extremities Exam Extremities Exam: Normal Inspection. absent: Tenderness - Neurological Exam Neurological Exam: Altered, Awake, CN II-XII Intact - Skin Skin Exam: Dry, Warm Assessment and Plan (1) CKD stage 4 due to type 2 diabetes mellitus Status: Acute (2) Proteinuria due to type 2 diabetes mellitus Status: Acute (3) Pulmonary edema Status: Acute - Assessment and Plan (Free Text) Plan: IV lasix Add IV Fe follow up lytes
--- NOTE | 2017-07-08 13:21 | CP.PCM.PN ---
<Angela Mcmillan - Last Filed: 07/08/17 13:11> Subjective - Date & Time of Evaluation Date of Evaluation: 07/08/17 Time of Evaluation: 11:15 - Subjective Subjective: Resident Progress Note for Dr. Diaz Patient seen and examined at bed with family member at bedside. No reported acute events overnight. Patient awake, alert and currently on ventilator. Unable to obtain detailed ROS due to to patient's respiratory status. Objective - Vital Signs/Intake and Output Vital Signs (last 24 hours): Temp Pulse Resp BP Pulse Ox 97.7 F 67 18 147/52 L 97 07/08/17 04:00 07/08/17 12:00 07/08/17 12:00 07/08/17 11:49 07/08/17 12:00 Intake and Output: 07/08/17 07/08/17 06:59 18:59 Intake Total 1165.9 374.5 Output Total 670 390 Balance 495.9 -15.5 - Medications Medications: Current Medications Albuterol/Ipratropium (Duoneb 3 Mg/0.5 Mg (3 Ml) Ud) 3 ml INH RQ6 [facility] Last Admin: 07/08/17 07:32 Dose: 3 ml Amiodarone HCl (Cordarone) 200 mg PO BID [facility] Last Admin: 07/08/17 09:58 Dose: 200 mg Enalapril Maleate (Vasotec) 2.5 mg PO DAILY [facility] Famotidine (Pepcid) 20 mg IVP DAILY [facility] Last Admin: 07/08/17 09:58 Dose: 20 mg Furosemide (Lasix) 40 mg IVP DAILY [facility] Heparin Sodium (Porcine) (Heparin) 5,000 units SC Q12 [facility] Piperacillin Sod/Tazobactam Sod (Zosyn 2.25 Gm Iv Premix) 2.25 gm in 50 mls @ 100 mls/hr IVPB Q8H [facility] Last Admin: 07/08/17 09:58 Dose: 100 mls/hr Vancomycin/Sodium Chloride (Vancocin) 1 gm in 200 mls @ 133.333 mls/hr IVPB Q24H [facility] Last Admin: 06/28/17 13:00 Dose: Not Given Heparin Sodium/Sodium Chloride (Heparin 07674 Units/250ml 1/2 Normal Saline) 25 ,000 units in 250 mls @ 7.947 mls/hr IV .Q24H PRN; Protocol; 12 UNITS/KG/HR PRN Reason: TITRATE PER PROTOCOL Last Admin: 07/03/17 01:42 Dose: 12 units/kg/hr, 7.947 mls/hr Propofol (Diprivan) 1,000 mg in 100 mls @ 1.926 mls/hr IV .Q24H PRN; Protocol; 5 MCG/KG/MIN PRN Reason: TITRATE PER MD ORDER Last Admin: 07/08/17 09:58 Dose: 17.9 mcg/kg/min, 6.9 mls/hr Micafungin Sodium 100 mg/ (Sodium Chloride) 100 mls @ 100 mls/hr IV Q24H [facility] Last Admin: 07/07/17 19:33 Dose: 100 mls/hr Insulin Human Regular (Novolin R) 0 unit SC Q6 [facility] PRN Reason: Protocol Last Admin: 07/08/17 06:53 Dose: 3 unit Lorazepam (Ativan) 2 mg IVP Q6H PRN PRN Reason: Anxiety Last Admin: 07/04/17 14:43 Dose: 2 mg Metoprolol Tartrate (Lopressor) 25 mg PO Q12 [facility] Last Admin: 07/08/17 09:57 Dose: 25 mg Spironolactone (Aldactone) 25 mg PO DAILY [facility] Vitamin A (Vitamin A & D Oint Ud Foilpak) 1 ea TOP BID [facility] Last Admin: 07/08/17 09:59 Dose: 1 ea - Labs Labs: 07/08/17 06:19 07/08/17 06:19 PT 14.1 SECONDS (9.7-12.2) H 07/02/17 07:13 INR 1.3 07/02/17 07:13 APTT 49 SECONDS (21-34) H 07/03/17 06:20 - Constitutional Appears: No Acute Distress, Chronically Ill - Head Exam Head Exam: ATRAUMATIC, NORMOCEPHALIC - Eye Exam Eye Exam: EOMI - ENT Exam ENT Exam: Mucous Membranes Moist - Respiratory Exam Respiratory Exam: Decreased Breath Sounds. absent: Wheezes, Respiratory Distress - Cardiovascular Exam Cardiovascular Exam: Irregular Rhythm, +S1, +S2 - GI/Abdominal Exam GI & Abdominal Exam: Normal Bowel Sounds - Back Exam Back Exam: NORMAL INSPECTION - Neurological Exam Neurological Exam: Alert, Awake - Skin Skin Exam: Dry, Warm Assessment and Plan - Assessment and Plan (Free Text) Assessment: Systolic CHF -Echocardiogram reviewed, EF 35%, moderate mitral regurg -CXR Review, pulmonary venous congestion -Plan for further coronary workup once respiratory and renal function improve -Start Lasix 40mg IV daily -Continue metorporlol, enalapril, spironolactone Paroxysmal afib, controlled -Continue amiodarone 200mg PO BID -Hold anticoagulation therapy due to GI bleed Management per ICU team Case discussed with attending Dr. Diaz <Bernabe Diaz - Last Filed: 07/09/17 07:09> Objective - Vital Signs/Intake and Output Vital Signs (last 24 hours): Temp Pulse Resp BP Pulse Ox 98.5 F 61 13 133/56 L 100 07/09/17 04:00 07/09/17 06:00 07/09/17 06:00 07/09/17 05:59 07/09/17 06:00 Intake and Output: 07/09/17 07/09/17 06:59 18:59 Intake Total 1014.2 Output Total 1305 Balance -290.8 - Medications Medications: Current Medications Albuterol/Ipratropium (Duoneb 3 Mg/0.5 Mg (3 Ml) Ud) 3 ml INH RQ6 [facility] Last Admin: 07/09/17 01:14 Dose: 3 ml Amiodarone HCl (Cordarone) 200 mg PO BID [facility] Last Admin: 07/08/17 17:25 Dose: 200 mg Enalapril Maleate (Vasotec) 2.5 mg PO DAILY [facility] Last Admin: 07/08/17 14:16 Dose: 2.5 mg Famotidine (Pepcid) 20 mg IVP DAILY [facility] Last Admin: 07/08/17 09:58 Dose: 20 mg Ferric Sodium Gluconate Complex (Ferrlecit) 125 mg IVPB DAILY [facility] Stop: 07/16/17 13:31 Last Admin: 07/08/17 14:15 Dose: 125 mg Furosemide (Lasix) 40 mg IVP DAILY [facility] Last Admin: 07/08/17 14:15 Dose: 40 mg Heparin Sodium (Porcine) (Heparin) 5,000 units SC Q12 [facility] Last Admin: 07/08/17 21:16 Dose: 5,000 units Micafungin Sodium 100 mg/ (Sodium Chloride) 100 mls @ 100 mls/hr IV Q24H [facility] Last Admin: 07/08/17 20:27 Dose: 100 mls/hr Propofol (Diprivan) 1,000 mg in 100 mls @ 1.891 mls/hr IV .Q24H PRN; Protocol; 5 MCG/KG/MIN PRN Reason: TITRATE PER MD ORDER Last Titration: 07/09/17 06:00 Dose: 0 mcg/kg/min, 0 mls/hr Insulin Glargine (Lantus) 5 unit SC HS [facility] Last Admin: 07/08/17 21:18 Dose: 5 units Insulin Human Regular (Novolin R) 0 unit SC Q6 [facility] PRN Reason: Protocol Last Admin: 07/09/17 06:40 Dose: 2 unit Lorazepam (Ativan) 2 mg IVP Q6H PRN PRN Reason: Anxiety Last Admin: 07/04/17 14:43 Dose: 2 mg Metoprolol Tartrate (Lopressor) 25 mg PO Q12 [facility] Last Admin: 07/08/17 21:17 Dose: 25 mg Spironolactone (Aldactone) 25 mg PO DAILY [facility] Last Admin: 07/08/17 14:16 Dose: 25 mg Vitamin A (Vitamin A & D Oint Ud Foilpak) 1 ea TOP BID [facility] Last Admin: 07/08/17 17:26 Dose: 1 ea - Labs Labs: 07/09/17 06:13 07/09/17 06:14 PT 14.1 SECONDS (9.7-12.2) H 07/02/17 07:13 INR 1.3 07/02/17 07:13 APTT 49 SECONDS (21-34) H 07/03/17 06:20 Assessment and Plan - Assessment and Plan (Free Text) Assessment: Patient seen and evaluated with the medical technologist prn Plan of care as described
[2017-07-08] MEDS: Ferric Sodium Gluconat Complex 62.5 mg/5 ml Vial IVPB SCH (14:15)
--- NOTE | 2017-07-08 18:09 | CP.PCM.PN ---
Subjective - Date & Time of Evaluation Date of Evaluation: 07/08/17 Time of Evaluation: 09:00 - Subjective Subjective: SEEN IN ICU IV ANTIBIOTICS ON HOLD TO CONT IV MYCAMINE Objective - Vital Signs/Intake and Output Vital Signs (last 24 hours): Temp Pulse Resp BP Pulse Ox 97.9 F 63 15 156/59 H 100 07/08/17 16:00 07/08/17 17:00 07/08/17 17:00 07/08/17 16:49 07/08/17 17:00 Intake and Output: 07/08/17 07/08/17 06:59 18:59 Intake Total 1165.9 734.5 Output Total 670 1010 Balance 495.9 -275.5 - Medications Medications: Current Medications Albuterol/Ipratropium (Duoneb 3 Mg/0.5 Mg (3 Ml) Ud) 3 ml INH RQ6 [facility] Last Admin: 07/08/17 13:31 Dose: 3 ml Amiodarone HCl (Cordarone) 200 mg PO BID [facility] Last Admin: 07/08/17 17:25 Dose: 200 mg Enalapril Maleate (Vasotec) 2.5 mg PO DAILY [facility] Last Admin: 07/08/17 14:16 Dose: 2.5 mg Famotidine (Pepcid) 20 mg IVP DAILY [facility] Last Admin: 07/08/17 09:58 Dose: 20 mg Ferric Sodium Gluconate Complex (Ferrlecit) 125 mg IVPB DAILY [facility] Stop: 07/16/17 13:31 Last Admin: 07/08/17 14:15 Dose: 125 mg Furosemide (Lasix) 40 mg IVP DAILY [facility] Last Admin: 07/08/17 14:15 Dose: 40 mg Heparin Sodium (Porcine) (Heparin) 5,000 units SC Q12 [facility] Last Admin: 07/08/17 14:16 Dose: 5,000 units Micafungin Sodium 100 mg/ (Sodium Chloride) 100 mls @ 100 mls/hr IV Q24H [facility] Last Admin: 07/07/17 19:33 Dose: 100 mls/hr Insulin Glargine (Lantus) 5 unit SC HS [facility] Insulin Human Regular (Novolin R) 0 unit SC Q6 [facility]IM PRN Reason: Protocol Lorazepam (Ativan) 2 mg IVP Q6H PRN PRN Reason: Anxiety Last Admin: 07/04/17 14:43 Dose: 2 mg Metoprolol Tartrate (Lopressor) 25 mg PO Q12 [facility] Last Admin: 07/08/17 09:57 Dose: 25 mg Spironolactone (Aldactone) 25 mg PO DAILY [facility] Last Admin: 07/08/17 14:16 Dose: 25 mg Vitamin A (Vitamin A & D Oint Ud Foilpak) 1 ea TOP BID [facility] Last Admin: 07/08/17 17:26 Dose: 1 ea - Labs Labs: 07/08/17 06:19 07/08/17 06:19 PT 14.1 SECONDS (9.7-12.2) H 07/02/17 07:13 INR 1.3 07/02/17 07:13 APTT 49 SECONDS (21-34) H 07/03/17 06:20 - Constitutional Appears: Cachectic, Chronically Ill - Head Exam Head Exam: NORMOCEPHALIC - Eye Exam Eye Exam: PERRL - ENT Exam ENT Exam: Mucous Membranes Dry - Neck Exam Neck Exam: absent: Lymphadenopathy - Respiratory Exam Respiratory Exam: Decreased Breath Sounds - Cardiovascular Exam Cardiovascular Exam: REGULAR RHYTHM - GI/Abdominal Exam GI & Abdominal Exam: Distended, Soft Assessment and Plan (1) Acute renal failure Status: Acute (2) Acute respiratory failure with hypoxemia Status: Acute (3) Anemia Status: Acute (4) CKD (chronic kidney disease) Status: Acute (5) CKD stage 4 due to type 2 diabetes mellitus Status: Acute (6) Pulmonary edema Status: Acute (7) UTI (urinary tract infection) Status: Acute
--- NOTE | 2017-07-08 19:33 | CP.CCUPN ---
<KishorEb light Rasheed - Last Filed: 07/08/17 19:24> CCU Subjective - Physician Review Subjective (Free Text): Patient was seen and examined at bedside in the morning. Patient on ventilator. Opens eyes to speech; with eye contact. Able to move arms. Review of systems was not obtainable as patient on ventilator. 07/08/17 19:24 CCU Objective - Vital Signs / Intake & Output Vital Signs (Last 4 hours): Vital Signs Temp Pulse Resp BP Pulse Ox 07/08/17 19:00 70 16 100 07/08/17 18:49 71 17 165/68 H 100 07/08/17 17:49 77 15 164/95 H 07/08/17 17:00 63 15 100 07/08/17 16:49 65 17 156/59 H 100 07/08/17 16:00 97.9 F 07/08/17 15:49 64 17 143/48 L 100 Intake and Output (Last 8hrs): Intake & Output 07/08/17 07/08/17 07/08/17 06:59 14:59 22:59 Intake Total 618.3 654.5 200 Output Total 053 444 9677 Balance 98.3 -155.5 -800 Weight 139 lb Intake: IV 0 100 Intake, IV Amount 98.3 234.5 Right Antecubital 50 Right Forearm 200 Right Hand 48.3 34.5 Tube Feeding 320 320 200 Other 200 Output: Urine 117 853 2270 Urethral (Neff) 924 077 4748 Stool 50 Other: # Bowel Movements 0 1 0 - Physical Exam Head: Positive for: Atraumatic, Normocephalic Extroacular Muscles: Positive for: EOMI Mouth: Positive for: Moist Mucous Membranes Respiratory/Chest: Positive for: Clear to Auscultation. Negative for: Wheezes, Rales, Rhonchi Cardiovascular: Positive for: Normal S1, S2, Irregular Rhythm, Tachycardic. Negative for: Bradycardic Abdomen: Positive for: Distention, Normal Bowel Sounds. Negative for: Tenderness Upper Extremity: Positive for: Normal Inspection. Negative for: Edema Lower Extremity: Positive for: Normal Inspection. Negative for: Edema Skin: Positive for: Warm, Dry, Normal Color Psychiatric: Positive for: Alert, Lethargic - Medications Active Medications: Active Medications Generic Name Dose Route Start Last Admin Trade Name Freq PRN Reason Stop Dose Admin Albuterol/Ipratropium 3 ml 07/04/17 08:00 07/08/17 13:31 Duoneb 3 Mg/0.5 Mg (3 Ml) Ud INH 3 ml RQ6 ASIM Administration Amiodarone HCl 200 mg 07/04/17 23:15 07/08/17 17:25 Cordarone PO 200 mg BID ASIM Administration Enalapril Maleate 2.5 mg 07/08/17 13:00 07/08/17 14:16 Vasotec PO 2.5 mg DAILY ASIM Administration Famotidine 20 mg 06/26/17 10:00 07/08/17 09:58 Pepcid IVP 20 mg DAILY ASIM Administration Ferric Sodium Gluconate Complex 125 mg 07/08/17 13:30 07/08/17 14:15 Ferrlecit IVPB 07/16/17 13:31 125 mg DAILY ASIM Administration Furosemide 40 mg 07/08/17 11:45 07/08/17 14:15 Lasix IVP 40 mg DAILY ASIM Administration Heparin Sodium (Porcine) 5,000 units 07/08/17 13:15 07/08/17 14:16 Heparin SC 5,000 units Q12 ASIM Administration Micafungin Sodium 100 mg/ 100 mls @ 100 mls/hr 07/04/17 20:00 07/07/17 19:33 Sodium Chloride IV 100 mls/hr Q24H ASIM Administration Insulin Glargine 5 unit 07/08/17 22:00 Lantus SC HS ASIM Insulin Human Regular 0 unit 07/08/17 13:17 07/08/17 18:53 Novolin R SC 4 unit Q6 ASIM Administration Protocol Lorazepam 2 mg 07/03/17 09:24 07/04/17 14:43 Ativan IVP 2 mg Q6H PRN Administration Anxiety Metoprolol Tartrate 25 mg 07/05/17 22:00 07/08/17 09:57 Lopressor PO 25 mg Q12 ASIM Administration Spironolactone 25 mg 07/08/17 13:15 07/08/17 14:16 Aldactone PO 25 mg DAILY ASIM Administration Vitamin A 1 ea 07/05/17 18:00 07/08/17 17:26 Vitamin A & D Oint Ud Foilpak TOP 1 ea BID ASIM Administration - Patient Studies Lab Studies: Microbiology Studies 07/03/17 09:30 Blood Culture - Final Blood-Venous NO GROWTH AFTER 5 DAYS Gram Stain - Final Lab Studies 07/08/17 07/08/17 07/08/17 Range/Units 18:15 17:00 11:35 WBC (4.8-10.8) K/uL RBC (3.80-5.20) Mil/uL Hgb (11.0-16.0) g/dL Hct (34.0-47.0) % MCV (81.0-99.0) fL MCH (27.0-31.0) pg MCHC (33.0-37.0) g/dL RDW (11.5-14.5) % Plt Count (130-400) K/uL MPV (7.2-11.7) fL Neut % (Auto) (50.0-75.0) % Lymph % (Auto) (20.0-40.0) % [place] % (Auto) (0.0-10.0) % Eos % (Auto) (0.0-4.0) % Baso % (Auto) (0.0-2.0) % Neut # (1.8-7.0) K/uL Lymph # (1.0-4.3) K/uL [place] # (0.0-0.8) K/uL Eos # (0.0-0.7) K/uL Baso # (0.0-0.2) K/uL Puncture Site pCO2 (35-45) mm/Hg pO2 (80-100) mm/Hg HCO3 (21-28) mmol/L ABG pH (7.35-7.45) ABG Total CO2 (22-28) mmol/L ABG O2 Saturation (95-98) % ABG Base Excess (-2.0-3.0) mmol/L ABG Hemoglobin (11.7-17.4) g/dL ABG Carboxyhemoglobin (0.5-1.5) % POC ABG HHb (Measured) (0.0-5.0) % ABG Methemoglobin (0.0-3.0) % Jasvir Test A-a O2 Difference mm/Hg Respiratory Index Hgb O2 Saturation (95.0-98.0) % Vent Mode Mechanical Rate FiO2 % Tidal Volume PEEP Sodium (132-148) mmol/L Potassium (3.6-5.2) mmol/L Chloride (98-107) mmol/L Carbon Dioxide (22-30) mmol/L Anion Gap (10-20) BUN (7-17) mg/dL Creatinine (0.7-1.2) MG/DL Est GFR ( Amer) Est GFR (Non-Af Amer) POC Glucose (mg/dL) 216 H 246 H (65-110) mg/dL Random Glucose (65-105) mg/dL Calcium (8.6-10.4) mg/dl Phosphorus (2.5-4.5) mg/dL Magnesium (1.6-2.3) mg/dL % Saturation (20-55) Ferritin ng/mL Total Bilirubin (0.2-1.3) mg/dL AST (14-36) U/L ALT (9-52) U/L Alkaline Phosphatase (38-126) U/L Total Protein (6.3-8.3) g/dL Albumin (3.5-5.0) g/dL Globulin (2.2-3.9) gm/dL Albumin/Globulin Ratio (1.0-2.1) Procalcitonin 0.46 (0.19-0.49) NG/ML Vancomycin Trough (5.0-10.0) ug/mL 07/08/17 07/08/17 07/08/17 Range/Units 09:10 06:19 06:19 WBC 15.1 H (4.8-10.8) K/uL RBC 3.34 L (3.80-5.20) Mil/uL Hgb 8.4 L (11.0-16.0) g/dL Hct 27.5 L (34.0-47.0) % MCV 82.3 D (81.0-99.0) fL MCH 25.2 L (27.0-31.0) pg MCHC 30.7 L (33.0-37.0) g/dL RDW 20.1 H (11.5-14.5) % Plt Count 138 (130-400) K/uL MPV 10.8 (7.2-11.7) fL Neut % (Auto) 77.6 H (50.0-75.0) % Lymph % (Auto) 14.1 L (20.0-40.0) % [place] % (Auto) 4.5 (0.0-10.0) % Eos % (Auto) 3.3 (0.0-4.0) % Baso % (Auto) 0.5 (0.0-2.0) % Neut # 11.7 H (1.8-7.0) K/uL Lymph # 2.1 (1.0-4.3) K/uL [place] # 0.7 (0.0-0.8) K/uL Eos # 0.5 (0.0-0.7) K/uL Baso # 0.1 (0.0-0.2) K/uL Puncture Site pCO2 (35-45) mm/Hg pO2 (80-100) mm/Hg HCO3 (21-28) mmol/L ABG pH (7.35-7.45) ABG Total CO2 (22-28) mmol/L ABG O2 Saturation (95-98) % ABG Base Excess (-2.0-3.0) mmol/L ABG Hemoglobin (11.7-17.4) g/dL ABG Carboxyhemoglobin (0.5-1.5) % POC ABG HHb (Measured) (0.0-5.0) % ABG Methemoglobin (0.0-3.0) % Jasvir Test A-a O2 Difference mm/Hg Respiratory Index Hgb O2 Saturation (95.0-98.0) % Vent Mode Mechanical Rate FiO2 % Tidal Volume PEEP Sodium 143 (132-148) mmol/L Potassium 4.6 (3.6-5.2) mmol/L Chloride 107 (98-107) mmol/L Carbon Dioxide 24 (22-30) mmol/L Anion Gap 16 (10-20) BUN 57 H (7-17) mg/dL Creatinine 2.0 H (0.7-1.2) MG/DL Est GFR ( Amer) 29 Est GFR (Non-Af Amer) 24 POC Glucose (mg/dL) (65-110) mg/dL Random Glucose 168 H (65-105) mg/dL Calcium 8.5 L (8.6-10.4) mg/dl Phosphorus 4.3 (2.5-4.5) mg/dL Magnesium 1.8 (1.6-2.3) mg/dL % Saturation (20-55) Ferritin 57.6 ng/mL Total Bilirubin 0.7 (0.2-1.3) mg/dL AST 38 H (14-36) U/L ALT 57 H (9-52) U/L Alkaline Phosphatase 92 (38-126) U/L Total Protein 5.7 L (6.3-8.3) g/dL Albumin 2.9 L (3.5-5.0) g/dL Globulin 2.9 (2.2-3.9) gm/dL Albumin/Globulin Ratio 1.0 (1.0-2.1) Procalcitonin (0.19-0.49) NG/ML Vancomycin Trough < 5.0 L (5.0-10.0) ug/mL 07/08/17 07/08/17 07/08/17 Range/Units 06:19 06:10 04:56 WBC (4.8-10.8) K/uL RBC (3.80-5.20) Mil/uL Hgb (11.0-16.0) g/dL Hct (34.0-47.0) % MCV (81.0-99.0) fL MCH (27.0-31.0) pg MCHC (33.0-37.0) g/dL RDW (11.5-14.5) % Plt Count (130-400) K/uL MPV (7.2-11.7) fL Neut % (Auto) (50.0-75.0) % Lymph % (Auto) (20.0-40.0) % [place] % (Auto) (0.0-10.0) % Eos % (Auto) (0.0-4.0) % Baso % (Auto) (0.0-2.0) % Neut # (1.8-7.0) K/uL Lymph # (1.0-4.3) K/uL [place] # (0.0-0.8) K/uL Eos # (0.0-0.7) K/uL Baso # (0.0-0.2) K/uL Puncture Site R rad pCO2 41 (35-45) mm/Hg pO2 120 H (80-100) mm/Hg HCO3 27.0 (21-28) mmol/L ABG pH 7.43 (7.35-7.45) ABG Total CO2 28.5 H (22-28) mmol/L ABG O2 Saturation 99.7 H (95-98) % ABG Base Excess 2.6 (-2.0-3.0) mmol/L ABG Hemoglobin 7.9 L (11.7-17.4) g/dL ABG Carboxyhemoglobin 2.4 H (0.5-1.5) % POC ABG HHb (Measured) 0.3 (0.0-5.0) % ABG Methemoglobin 1.4 (0.0-3.0) % Jasvir Test Pos A-a O2 Difference 185.0 mm/Hg Respiratory Index 1.5 Hgb O2 Saturation 95.9 (95.0-98.0) % Vent Mode Prvc Mechanical Rate 10 FiO2 50.0 % Tidal Volume 400 PEEP 5 Sodium (132-148) mmol/L Potassium (3.6-5.2) mmol/L Chloride (98-107) mmol/L Carbon Dioxide (22-30) mmol/L Anion Gap (10-20) BUN (7-17) mg/dL Creatinine (0.7-1.2) MG/DL Est GFR ( Amer) Est GFR (Non-Af Amer) POC Glucose (mg/dL) 201 H (65-110) mg/dL Random Glucose (65-105) mg/dL Calcium (8.6-10.4) mg/dl Phosphorus (2.5-4.5) mg/dL Magnesium (1.6-2.3) mg/dL % Saturation 11 L (20-55) Ferritin ng/mL Total Bilirubin (0.2-1.3) mg/dL AST (14-36) U/L ALT (9-52) U/L Alkaline Phosphatase (38-126) U/L Total Protein (6.3-8.3) g/dL Albumin (3.5-5.0) g/dL Globulin (2.2-3.9) gm/dL Albumin/Globulin Ratio (1.0-2.1) Procalcitonin (0.19-0.49) NG/ML Vancomycin Trough (5.0-10.0) ug/mL 07/08/17 Range/Units 00:09 WBC (4.8-10.8) K/uL RBC (3.80-5.20) Mil/uL Hgb (11.0-16.0) g/dL Hct (34.0-47.0) % MCV (81.0-99.0) fL MCH (27.0-31.0) pg MCHC (33.0-37.0) g/dL RDW (11.5-14.5) % Plt Count (130-400) K/uL MPV (7.2-11.7) fL Neut % (Auto) (50.0-75.0) % Lymph % (Auto) (20.0-40.0) % [place] % (Auto) (0.0-10.0) % Eos % (Auto) (0.0-4.0) % Baso % (Auto) (0.0-2.0) % Neut # (1.8-7.0) K/uL Lymph # (1.0-4.3) K/uL [place] # (0.0-0.8) K/uL Eos # (0.0-0.7) K/uL Baso # (0.0-0.2) K/uL Puncture Site pCO2 (35-45) mm/Hg pO2 (80-100) mm/Hg HCO3 (21-28) mmol/L ABG pH (7.35-7.45) ABG Total CO2 (22-28) mmol/L ABG O2 Saturation (95-98) % ABG Base Excess (-2.0-3.0) mmol/L ABG Hemoglobin (11.7-17.4) g/dL ABG Carboxyhemoglobin (0.5-1.5) % POC ABG HHb (Measured) (0.0-5.0) % ABG Methemoglobin (0.0-3.0) % Jasvir Test A-a O2 Difference mm/Hg Respiratory Index Hgb O2 Saturation (95.0-98.0) % Vent Mode Mechanical Rate FiO2 % Tidal Volume PEEP Sodium (132-148) mmol/L Potassium (3.6-5.2) mmol/L Chloride (98-107) mmol/L Carbon Dioxide (22-30) mmol/L Anion Gap (10-20) BUN (7-17) mg/dL Creatinine (0.7-1.2) MG/DL Est GFR ( Amer) Est GFR (Non-Af Amer) POC Glucose (mg/dL) 160 H (65-110) mg/dL Random Glucose (65-105) mg/dL Calcium (8.6-10.4) mg/dl Phosphorus (2.5-4.5) mg/dL Magnesium (1.6-2.3) mg/dL % Saturation (20-55) Ferritin ng/mL Total Bilirubin (0.2-1.3) mg/dL AST (14-36) U/L ALT (9-52) U/L Alkaline Phosphatase (38-126) U/L Total Protein (6.3-8.3) g/dL Albumin (3.5-5.0) g/dL Globulin (2.2-3.9) gm/dL Albumin/Globulin Ratio (1.0-2.1) Procalcitonin (0.19-0.49) NG/ML Vancomycin Trough (5.0-10.0) ug/mL Laboratory Results - last 24 hr 07/08/17 07/08/17 07/08/17 00:09 04:56 06:10 WBC RBC Hgb Hct MCV MCH MCHC RDW Plt Count MPV Neut % (Auto) Lymph % (Auto) [place] % (Auto) Eos % (Auto) Baso % (Auto) Neut # Lymph # [place] # Eos # Baso # Puncture Site R rad pCO2 41 pO2 120 H HCO3 27.0 ABG pH 7.43 ABG Total CO2 28.5 H ABG O2 Saturation 99.7 H ABG Base Excess 2.6 ABG Hemoglobin 7.9 L ABG Carboxyhemoglobin 2.4 H POC ABG HHb (Measured) 0.3 ABG Methemoglobin 1.4 Jasvir Test Pos A-a O2 Difference 185.0 Respiratory Index 1.5 Hgb O2 Saturation 95.9 Vent Mode Prvc Mechanical Rate 10 FiO2 50.0 Tidal Volume 400 PEEP 5 Sodium Potassium Chloride Carbon Dioxide Anion Gap BUN Creatinine Est GFR ( Amer) Est GFR (Non-Af Amer) POC Glucose (mg/dL) 160 H 201 H Random Glucose Calcium Phosphorus Magnesium % Saturation Ferritin Total Bilirubin AST ALT Alkaline Phosphatase Total Protein Albumin Globulin Albumin/Globulin Ratio Procalcitonin Vancomycin Trough 07/08/17 07/08/17 07/08/17 06:19 06:19 06:19 WBC 15.1 H RBC 3.34 L Hgb 8.4 L Hct 27.5 L MCV 82.3 D MCH 25.2 L MCHC 30.7 L RDW 20.1 H Plt Count 138 MPV 10.8 Neut % (Auto) 77.6 H Lymph % (Auto) 14.1 L [place] % (Auto) 4.5 Eos % (Auto) 3.3 Baso % (Auto) 0.5 Neut # 11.7 H Lymph # 2.1 [place] # 0.7 Eos # 0.5 Baso # 0.1 Puncture Site pCO2 pO2 HCO3 ABG pH ABG Total CO2 ABG O2 Saturation ABG Base Excess ABG Hemoglobin ABG Carboxyhemoglobin POC ABG HHb (Measured) ABG Methemoglobin Jasvir Test A-a O2 Difference Respiratory Index Hgb O2 Saturation Vent Mode Mechanical Rate FiO2 Tidal Volume PEEP Sodium 143 Potassium 4.6 Chloride 107 Carbon Dioxide 24 Anion Gap 16 BUN 57 H Creatinine 2.0 H Est GFR ( Amer) 29 Est GFR (Non-Af Amer) 24 POC Glucose (mg/dL) Random Glucose 168 H Calcium 8.5 L Phosphorus 4.3 Magnesium 1.8 % Saturation 11 L Ferritin 57.6 Total Bilirubin 0.7 AST 38 H ALT 57 H Alkaline Phosphatase 92 Total Protein 5.7 L Albumin 2.9 L Globulin 2.9 Albumin/Globulin Ratio 1.0 Procalcitonin Vancomycin Trough 07/08/17 07/08/17 07/08/17 09:10 11:35 17:00 WBC RBC Hgb Hct MCV MCH MCHC RDW Plt Count MPV Neut % (Auto) Lymph % (Auto) [place] % (Auto) Eos % (Auto) Baso % (Auto) Neut # Lymph # [place] # Eos # Baso # Puncture Site pCO2 pO2 HCO3 ABG pH ABG Total CO2 ABG O2 Saturation ABG Base Excess ABG Hemoglobin ABG Carboxyhemoglobin POC ABG HHb (Measured) ABG Methemoglobin Jasvir Test A-a O2 Difference Respiratory Index Hgb O2 Saturation Vent Mode Mechanical Rate FiO2 Tidal Volume PEEP Sodium Potassium Chloride Carbon Dioxide Anion Gap BUN Creatinine Est GFR ( Amer) Est GFR (Non-Af Amer) POC Glucose (mg/dL) 246 H Random Glucose Calcium Phosphorus Magnesium % Saturation Ferritin Total Bilirubin AST ALT Alkaline Phosphatase Total Protein Albumin Globulin Albumin/Globulin Ratio Procalcitonin 0.46 Vancomycin Trough < 5.0 L 07/08/17 18:15 WBC RBC Hgb Hct MCV MCH MCHC RDW Plt Count MPV Neut % (Auto) Lymph % (Auto) [place] % (Auto) Eos % (Auto) Baso % (Auto) Neut # Lymph # [place] # Eos # Baso # Puncture Site pCO2 pO2 HCO3 ABG pH ABG Total CO2 ABG O2 Saturation ABG Base Excess ABG Hemoglobin ABG Carboxyhemoglobin POC ABG HHb (Measured) ABG Methemoglobin Jasvir Test A-a O2 Difference Respiratory Index Hgb O2 Saturation Vent Mode Mechanical Rate FiO2 Tidal Volume PEEP Sodium Potassium Chloride Carbon Dioxide Anion Gap BUN Creatinine Est GFR ( Amer) Est GFR (Non-Af Amer) POC Glucose (mg/dL) 216 H Random Glucose Calcium Phosphorus Magnesium % Saturation Ferritin Total Bilirubin AST ALT Alkaline Phosphatase Total Protein Albumin Globulin Albumin/Globulin Ratio Procalcitonin Vancomycin Trough Fingerstick Blood Sugar Results: 201 Review of Systems - Review of Systems Systems not reviewed;Unavailable: Intubated Critical Care Progress Note - Vent Settings TIDAL VOLUME:: 400 RESP RATE:: 10 FIO2:: 50 PEEP:: 5 Assessment/Plan - Assessment and Plan (Free Text) Assessment: 77 year old female with history of HTN, DM, CAD, presented initially c/o chest pain. Patient had NSTEMI with elevated troponins. Patient was severely anemic on presentation (Hgb 6.5), s/p prbc, 8.9. Patient went into a-fib, started on cardizem drip and heparin drip. Patient converted to normal sinus rhythm, and cardizem drip was being tapered. Today 07/08/2017: pulmonary edema. added enalapril, ferric sulfate, furosemide, spiranolactone, dvt heparin. CV: NSTEMI; CHF - EF 35%; A-Fib resolved - Troponin: 0.25, 3.11, 4.03, 2.84 (trending down) - A-fib resolved - amiodarone 200mg po bid - furosemide 40mg iv daily - enalapril 2.5mg po daily - Off pressors - Echo: EF 35%; moderately impaired LV systolic function; mild hypokinesis of posterior wall; grade-II pseudonormal diastolic dysfunction; elevated LA pressure; mod dilated LA; Trace AR; Aortic valve mildly sclerotic. - Started metoprolol 25mg po q12 - Cardiology consulted: Dr. Arshad - As per Dr. Arshad, cannot do cardiac cath due to elevated Cr. ID: Leokocytosis 2/2 pneumonia and uti - CXR: showing worsening infiltrative changes, likely pneumonia - Urine culture 07/03 growing yeast species - continue micafungin 100mg q24 - sputum culture 07/03 negative - blood culture 07/03 no growth up to date - UA: 1+ protein, 3+ blood, 15 WBC, 60 RBC - Infectious disease consulted, Dr Reese Neuro: - lorazepam 2mg iv q6 prn for agitation Pulm: pneumonia - on ventilator - Patient was extubated on 06/29/17, on BiPAP, then reintubated on 07/03/17 - Acute respiratory failure with hypoxemia secondary to pulmonary edema - CXR: showing worsening infiltrative changes, likely pneumonia - albuterol Endo: no acute issues - ISS GI: echogenic liver seen on U/S; gastritis - GI consulted: Dr. Mendoza, help appreciated - EGD (06/28/17): small hiatal hernia, acute gastritis (biopsied) - EDG and colonoscopy in 02/2017, 5mm polyp resected; congested mucosa in descending colon, non-bleeding external, internal hemorrhoids. - Abd/Pelvic U/S: echogenic liver maybe in setting of hepatic parenchymal disease or fatty infiltration; b/l echogenic renal parenchyma maybe in setting of medical renal disease; 2.3x2.0x2.2cm right renal cyst Heme: anemic, s/p PRBC transfusionx2 - Hgb 6.5 on admission, transfused 2 units PRBC - Monitor H/H Renal: CKD - Nephrology consulted- Dr. 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 - Hypokalemia: gave KCl - at high risk for contrast nephropathy w/ cardiac cath Prophylaxis: - DVT: SCDs; on heparin drip for a-fib - GI: Pepcid daily - Swallow eval: failed on 06/30/17 <Trey Elaine - Last Filed: 07/09/17 18:34> CCU Objective - Vital Signs / Intake & Output Vital Signs (Last 4 hours): Vital Signs Temp Pulse Resp BP Pulse Ox 07/09/17 18:00 69 22 100 07/09/17 17:17 66 18 139/53 L 99 07/09/17 16:40 66 21 98 07/09/17 16:17 60 18 146/54 L 100 07/09/17 16:00 98.8 F 62 20 99 07/09/17 15:18 153/66 H 07/09/17 15:00 60 13 100 Intake and Output (Last 8hrs): Intake & Output 07/09/17 07/09/17 07/09/17 06:59 14:59 22:59 Intake Total 548.5 620 210 Output Total 490 1000 650 Balance 58.5 -380 -440 Intake: IV 0 Intake, IV Amount 28.5 100 Right Forearm 100 Right Hand 28.5 0 Tube Feeding 320 320 160 Other 200 200 50 Output: Urine 490 1000 650 Urethral (Neff) 490 1000 650 Other: # Bowel Movements 0 1 - Medications Active Medications: Active Medications Generic Name Dose Route Start Last Admin Trade Name Freq PRN Reason Stop Dose Admin Albuterol/Ipratropium 3 ml 07/09/17 14:00 07/09/17 16:31 Duoneb 3 Mg/0.5 Mg (3 Ml) Ud INH 3 ml QID ASIM Administration Enalapril Maleate 2.5 mg 07/08/17 13:00 07/09/17 12:47 Vasotec PO 2.5 mg DAILY ASIM Administration Famotidine 20 mg 06/26/17 10:00 07/09/17 10:51 Pepcid IVP 20 mg DAILY ASIM Administration Ferric Sodium Gluconate Complex 125 mg 07/08/17 13:30 07/09/17 10:50 Ferrlecit IVPB 07/16/17 13:31 125 mg DAILY ASIM Administration Furosemide 40 mg 07/08/17 11:45 07/09/17 10:51 Lasix IVP 40 mg DAILY ASIM Administration Heparin Sodium (Porcine) 5,000 units 07/08/17 13:15 07/09/17 10:50 Heparin SC 5,000 units Q12 ASIM Administration Micafungin Sodium 100 mg/ 100 mls @ 100 mls/hr 07/04/17 20:00 07/08/17 20:27 Sodium Chloride IV 100 mls/hr Q24H ASIM Administration Propofol 1,000 mg in 100 mls @ 1.891 mls/hr 07/08/17 20:35 07/09/17 06:00 Diprivan IV 0 mcg/kg/min .Q24H PRN 0 mls/hr TITRATE PER MD ORDER Titration Protocol 5 MCG/KG/MIN Insulin Glargine 8 unit 07/09/17 22:00 Lantus SC HS ASIM Insulin Human Regular 0 unit 07/08/17 13:17 07/09/17 18:10 Novolin R SC 6 unit Q6 ASIM Administration Protocol Lorazepam 2 mg 07/03/17 09:24 07/04/17 14:43 Ativan IVP 2 mg Q6H PRN Administration Anxiety Metoprolol Tartrate 25 mg 07/05/17 22:00 07/09/17 10:51 Lopressor PO 25 mg Q12 ASIM Administration Spironolactone 25 mg 07/08/17 13:15 07/09/17 10:51 Aldactone PO 25 mg DAILY ASIM Administration Vitamin A 1 ea 07/05/17 18:00 07/09/17 18:10 Vitamin A & D Oint Ud Foilpak TOP 1 ea BID ASIM Administration - Patient Studies Lab Studies: Lab Studies 07/09/17 07/09/17 07/09/17 Range/Units 17:45 11:40 06:35 WBC (4.8-10.8) K/uL RBC (3.80-5.20) Mil/uL Hgb (11.0-16.0) g/dL Hct (34.0-47.0) % MCV (81.0-99.0) fL MCH (27.0-31.0) pg MCHC (33.0-37.0) g/dL RDW (11.5-14.5) % Plt Count (130-400) K/uL MPV (7.2-11.7) fL Neut % (Auto) (50.0-75.0) % Lymph % (Auto) (20.0-40.0) % [place] % (Auto) (0.0-10.0) % Eos % (Auto) (0.0-4.0) % Baso % (Auto) (0.0-2.0) % Neut # (1.8-7.0) K/uL Lymph # (1.0-4.3) K/uL [place] # (0.0-0.8) K/uL Eos # (0.0-0.7) K/uL Baso # (0.0-0.2) K/uL Puncture Site pCO2 (35-45) mm/Hg pO2 (80-100) mm/Hg HCO3 (21-28) mmol/L ABG pH (7.35-7.45) ABG Total CO2 (22-28) mmol/L ABG O2 Saturation (95-98) % ABG Base Excess (-2.0-3.0) mmol/L ABG Hemoglobin (11.7-17.4) g/dL ABG Carboxyhemoglobin (0.5-1.5) % POC ABG HHb (Measured) (0.0-5.0) % ABG Methemoglobin (0.0-3.0) % Jasvir Test A-a O2 Difference mm/Hg Respiratory Index Hgb O2 Saturation (95.0-98.0) % Vent Mode Mechanical Rate FiO2 % Tidal Volume PEEP Sodium (132-148) mmol/L Potassium (3.6-5.2) mmol/L Chloride (98-107) mmol/L Carbon Dioxide (22-30) mmol/L Anion Gap (10-20) BUN (7-17) mg/dL Creatinine (0.7-1.2) MG/DL Est GFR ( Amer) Est GFR (Non-Af Amer) POC Glucose (mg/dL) 262 H 186 H 199 H (65-110) mg/dL Random Glucose (65-105) mg/dL Calcium (8.6-10.4) mg/dl Phosphorus (2.5-4.5) mg/dL Magnesium (1.6-2.3) mg/dL Total Bilirubin (0.2-1.3) mg/dL AST (14-36) U/L ALT (9-52) U/L Alkaline Phosphatase (38-126) U/L Total Protein (6.3-8.3) g/dL Albumin (3.5-5.0) g/dL Globulin (2.2-3.9) gm/dL Albumin/Globulin Ratio (1.0-2.1) 07/09/17 07/09/17 07/09/17 Range/Units 06:14 06:13 05:27 WBC 12.8 H (4.8-10.8) K/uL RBC 3.38 L (3.80-5.20) Mil/uL Hgb 8.7 L (11.0-16.0) g/dL Hct 27.8 L (34.0-47.0) % MCV 82.1 (81.0-99.0) fL MCH 25.6 L (27.0-31.0) pg MCHC 31.2 L (33.0-37.0) g/dL RDW 19.3 H (11.5-14.5) % Plt Count 162 (130-400) K/uL MPV 10.8 (7.2-11.7) fL Neut % (Auto) 69.7 (50.0-75.0) % Lymph % (Auto) 21.7 (20.0-40.0) % [place] % (Auto) 5.5 (0.0-10.0) % Eos % (Auto) 2.5 (0.0-4.0) % Baso % (Auto) 0.6 (0.0-2.0) % Neut # 8.9 H (1.8-7.0) K/uL Lymph # 2.8 (1.0-4.3) K/uL [place] # 0.7 (0.0-0.8) K/uL Eos # 0.3 (0.0-0.7) K/uL Baso # 0.1 (0.0-0.2) K/uL Puncture Site R rad pCO2 42 (35-45) mm/Hg pO2 130 H (80-100) mm/Hg HCO3 29.2 H (21-28) mmol/L ABG pH 7.46 H (7.35-7.45) ABG Total CO2 31.2 H (22-28) mmol/L ABG O2 Saturation 99.4 H (95-98) % ABG Base Excess 5.5 H (-2.0-3.0) mmol/L ABG Hemoglobin 8.4 L (11.7-17.4) g/dL ABG Carboxyhemoglobin 2.2 H (0.5-1.5) % POC ABG HHb (Measured) 0.6 (0.0-5.0) % ABG Methemoglobin 1.8 (0.0-3.0) % Jasvir Test Pos A-a O2 Difference 174.0 mm/Hg Respiratory Index 1.3 Hgb O2 Saturation 95.4 (95.0-98.0) % Vent Mode Prvc Mechanical Rate 10 FiO2 50.0 % Tidal Volume 400 PEEP 5 Sodium 139 (132-148) mmol/L Potassium 4.1 (3.6-5.2) mmol/L Chloride 101 (98-107) mmol/L Carbon Dioxide 28 (22-30) mmol/L Anion Gap 15 (10-20) BUN 57 H (7-17) mg/dL Creatinine 2.1 H (0.7-1.2) MG/DL Est GFR ( Amer) 28 Est GFR (Non-Af Amer) 23 POC Glucose (mg/dL) (65-110) mg/dL Random Glucose 167 H (65-105) mg/dL Calcium 8.7 (8.6-10.4) mg/dl Phosphorus 4.9 H (2.5-4.5) mg/dL Magnesium 1.7 (1.6-2.3) mg/dL Total Bilirubin 0.6 (0.2-1.3) mg/dL AST 32 (14-36) U/L ALT 53 H (9-52) U/L Alkaline Phosphatase 92 (38-126) U/L Total Protein 6.0 L (6.3-8.3) g/dL Albumin 3.0 L (3.5-5.0) g/dL Globulin 3.0 (2.2-3.9) gm/dL Albumin/Globulin Ratio 1.0 (1.0-2.1) 07/09/17 Range/Units 00:06 WBC (4.8-10.8) K/uL RBC (3.80-5.20) Mil/uL Hgb (11.0-16.0) g/dL Hct (34.0-47.0) % MCV (81.0-99.0) fL MCH (27.0-31.0) pg MCHC (33.0-37.0) g/dL RDW (11.5-14.5) % Plt Count (130-400) K/uL MPV (7.2-11.7) fL Neut % (Auto) (50.0-75.0) % Lymph % (Auto) (20.0-40.0) % [place] % (Auto) (0.0-10.0) % Eos % (Auto) (0.0-4.0) % Baso % (Auto) (0.0-2.0) % Neut # (1.8-7.0) K/uL Lymph # (1.0-4.3) K/uL [place] # (0.0-0.8) K/uL Eos # (0.0-0.7) K/uL Baso # (0.0-0.2) K/uL Puncture Site pCO2 (35-45) mm/Hg pO2 (80-100) mm/Hg HCO3 (21-28) mmol/L ABG pH (7.35-7.45) ABG Total CO2 (22-28) mmol/L ABG O2 Saturation (95-98) % ABG Base Excess (-2.0-3.0) mmol/L ABG Hemoglobin (11.7-17.4) g/dL ABG Carboxyhemoglobin (0.5-1.5) % POC ABG HHb (Measured) (0.0-5.0) % ABG Methemoglobin (0.0-3.0) % Jasvir Test A-a O2 Difference mm/Hg Respiratory Index Hgb O2 Saturation (95.0-98.0) % Vent Mode Mechanical Rate FiO2 % Tidal Volume PEEP Sodium (132-148) mmol/L Potassium (3.6-5.2) mmol/L Chloride (98-107) mmol/L Carbon Dioxide (22-30) mmol/L Anion Gap (10-20) BUN (7-17) mg/dL Creatinine (0.7-1.2) MG/DL Est GFR ( Amer) Est GFR (Non-Af Amer) POC Glucose (mg/dL) 191 H (65-110) mg/dL Random Glucose (65-105) mg/dL Calcium (8.6-10.4) mg/dl Phosphorus (2.5-4.5) mg/dL Magnesium (1.6-2.3) mg/dL Total Bilirubin (0.2-1.3) mg/dL AST (14-36) U/L ALT (9-52) U/L Alkaline Phosphatase (38-126) U/L Total Protein (6.3-8.3) g/dL Albumin (3.5-5.0) g/dL Globulin (2.2-3.9) gm/dL Albumin/Globulin Ratio (1.0-2.1) Laboratory Results - last 24 hr 07/09/17 07/09/17 07/09/17 00:06 05:27 06:13 WBC 12.8 H RBC 3.38 L Hgb 8.7 L Hct 27.8 L MCV 82.1 MCH 25.6 L MCHC 31.2 L RDW 19.3 H Plt Count 162 MPV 10.8 Neut % (Auto) 69.7 Lymph % (Auto) 21.7 [place] % (Auto) 5.5 Eos % (Auto) 2.5 Baso % (Auto) 0.6 Neut # 8.9 H Lymph # 2.8 [place] # 0.7 Eos # 0.3 Baso # 0.1 Puncture Site R rad pCO2 42 pO2 130 H HCO3 29.2 H ABG pH 7.46 H ABG Total CO2 31.2 H ABG O2 Saturation 99.4 H ABG Base Excess 5.5 H ABG Hemoglobin 8.4 L ABG Carboxyhemoglobin 2.2 H POC ABG HHb (Measured) 0.6 ABG Methemoglobin 1.8 Jasvir Test Pos A-a O2 Difference 174.0 Respiratory Index 1.3 Hgb O2 Saturation 95.4 Vent Mode Prvc Mechanical Rate 10 FiO2 50.0 Tidal Volume 400 PEEP 5 Sodium Potassium Chloride Carbon Dioxide Anion Gap BUN Creatinine Est GFR ( Amer) Est GFR (Non-Af Amer) POC Glucose (mg/dL) 191 H Random Glucose Calcium Phosphorus Magnesium Total Bilirubin AST ALT Alkaline Phosphatase Total Protein Albumin Globulin Albumin/Globulin Ratio 07/09/17 07/09/17 07/09/17 06:14 06:35 11:40 WBC RBC Hgb Hct MCV MCH MCHC RDW Plt Count MPV Neut % (Auto) Lymph % (Auto) [place] % (Auto) Eos % (Auto) Baso % (Auto) Neut # Lymph # [place] # Eos # Baso # Puncture Site pCO2 pO2 HCO3 ABG pH ABG Total CO2 ABG O2 Saturation ABG Base Excess ABG Hemoglobin ABG Carboxyhemoglobin POC ABG HHb (Measured) ABG Methemoglobin Jasvir Test A-a O2 Difference Respiratory Index Hgb O2 Saturation Vent Mode Mechanical Rate FiO2 Tidal Volume PEEP Sodium 139 Potassium 4.1 Chloride 101 Carbon Dioxide 28 Anion Gap 15 BUN 57 H Creatinine 2.1 H Est GFR ( Amer) 28 Est GFR (Non-Af Amer) 23 POC Glucose (mg/dL) 199 H 186 H Random Glucose 167 H Calcium 8.7 Phosphorus 4.9 H Magnesium 1.7 Total Bilirubin 0.6 AST 32 ALT 53 H Alkaline Phosphatase 92 Total Protein 6.0 L Albumin 3.0 L Globulin 3.0 Albumin/Globulin Ratio 1.0 07/09/17 17:45 WBC RBC Hgb Hct MCV MCH MCHC RDW Plt Count MPV Neut % (Auto) Lymph % (Auto) [place] % (Auto) Eos % (Auto) Baso % (Auto) Neut # Lymph # [place] # Eos # Baso # Puncture Site pCO2 pO2 HCO3 ABG pH ABG Total CO2 ABG O2 Saturation ABG Base Excess ABG Hemoglobin ABG Carboxyhemoglobin POC ABG HHb (Measured) ABG Methemoglobin Jasvir Test A-a O2 Difference Respiratory Index Hgb O2 Saturation Vent Mode Mechanical Rate FiO2 Tidal Volume PEEP Sodium Potassium Chloride Carbon Dioxide Anion Gap BUN Creatinine Est GFR ( Amer) Est GFR (Non-Af Amer) POC Glucose (mg/dL) 262 H Random Glucose Calcium Phosphorus Magnesium Total Bilirubin AST ALT Alkaline Phosphatase Total Protein Albumin Globulin Albumin/Globulin Ratio Attending/Attestation - Attestation I have personally seen and examined this patient.: Yes I have fully participated in the care of the patient.: Yes I have reviewed all pertinent clinical information: Yes Notes (Text): 07/09/17 18:33 I have seen and examined the patient. Medical records, lab studies, and imaging were reviewed by me and a management plan was formulated on multidisciplinary rounds with resident Dr. Parson. I agree with their above documented assessment and plan. Patient needs aggressive diuresis and continual PS Trials to try to re-extubate. Critical Care Time 35 minutes. Multi-disciplinary rounds were performed with house staff, nursing, speech therapy, respiratory therapy, pharmacy and nutrition with integrated input from the primary team/attending and other consulting services. The documented time is cumulative and includes review of patient data/exams/labs/chart review and examination of the patient on rounds and throughout the day; time is exclusive of any procedures or teaching time.
[2017-07-08] MEDS ORDERED: Propofol 10 mg/ml Inj (100 ml) IV PRN ×2 (20:11→20:45)
[2017-07-08] MEDS: Micafungin 100 MG in Sodium Chloride 0.9% 100 ML IV SCH (20:27)
[2017-07-08] MEDS ORDERED: Propofol 10 mg/ml 1,000 MG/100 ML VIAL IV PRN (20:35)
--- NOTE | 2017-07-08 20:53 | PN ---
LOCATION: ICU 12. SUBJECTIVE: This is a 77-year-old female, seen and examined in rounds, is still on vent on CPAP mouth, as well as Diprivan was off for sedation before. The entire chart is reviewed including but not limited to most recent labs and radiology study result, current and previous medication list, current and previous medical events. Case discussed with staff in the intensive care unit at length. Today's white blood cells elevated 16.1, with low hemoglobin 8.4, hematocrit low at 27.5, with normal platelet count but abnormal ABGs with BUN of 57 and creatinine 2.0, with blood glucose level 246, with AST to 38, ALT 57 with low albumin 2.9, with low total protein 5.7. Today chest x-ray done and report received indicative of mild pulmonary edema with pneumonia. PHYSICAL EXAMINATION GENERAL: The patient is a 77-year-old female. VITAL SIGNS: Afebrile with pulse of 70, blood pressure of 146/56. HEENT: Pale dry mucous membrane. Non-icteric sclerae. LUNGS: Few scattered crepitations. Decreased air entry at bases with few rales bilaterally, the patient is still connected to the ventilator. HEART: Positive S1 and S2. ABDOMEN: Soft. Bowel sounds are present. NEG tube is in place. No mass or organomegaly. No rebound tenderness or guarding. EXTREMITIES: Lower extremities mild edematous changes. No clubbing or cyanosis. NEUROLOGIC: No new reported neurological deficits, sensory or motor. IMPRESSION: 1. Malnutrition with hypoalbuminemia. 2. The patient is a candidate for PEG insertion. 3. Acute renal failure. 4. Pneumonia with respiratory failure, intubated. 5. Anemia secondary to above. 6. Clinical septicemia. 7. Electrolyte imbalance. SUGGESTION: 1. Agree with your plan. 2. Central hyperalimentation. 3. We will schedule the patient for potential PEG insertion when she is more stable clinically, that to be discussed with the admitting medical team as well as the family at length. Diana Cazares MD
[2017-07-08] MEDS ORDERED: (Lantus) Insulin Glargine, Recombinant SC SCH (22:00)
[2017-07-09] MEDS: (Novolin R) Insulin Human Regular 100 units/ml vial SC SCH ×4 (00:13→18:10)
[2017-07-09] MEDS: Albuterol-Ipratrop 3 mg / 0.5 (3 ml) UD INH SCH ×5 (01:14→19:34)
[2017-07-09 06:05] LABS: ABG ALLEN TEST POS; ABG MECHANICAL RATE 10; ARTERIAL BLOOD GAS MODE PRVC; ARTERIAL BLOOD HGB O2 SAT 95.4 % (95.0-98.0); ATERIAL BLOOD GAS PEEP 5; CARBOXYHEMOGLOBIN 2.2 % (0.5-1.5); DRAW SITE R RAD; HHB 0.6 % (0.0-5.0); METHEMOGLOBIN 1.8 % (0.0-3.0)
[2017-07-09 06:18] LABS: BASO # 0.1 K/uL (0.0-0.2); BASO % 0.6 % (0.0-2.0); EOS # 0.3 K/uL (0.0-0.7); EOS % 2.5 % (0.0-4.0); HEMATOCRIT 27.8 % (34.0-47.0); LYMPH # 2.8 K/uL (1.0-4.3); LYMPH % 21.7 % (20.0-40.0); MEAN CELL VOLUME 82.1 fL (81.0-99.0); MEAN CORPUSCULAR HEMOGLOBIN 25.6 pg (27.0-31.0); MEAN CORPUSCULAR HGB CONC 31.2 g/dL (33.0-37.0); MEAN PLATELET VOLUME 10.8 fL (7.2-11.7); MONO # 0.7 K/uL (0.0-0.8); MONO % 5.5 % (0.0-10.0); NRBC % 0.2 % (0.0-2.0); RED CELL DISTRIBUTION WIDTH 19.3 % (11.5-14.5); WHITE BLOOD COUNT 12.8 K/uL (4.8-10.8)
[2017-07-09 06:42] LABS: BILIRUBIN,TOTAL 0.6 mg/dL (0.2-1.3); CALCIUM 8.7 mg/dl (8.6-10.4); MAGNESIUM 1.7 mg/dL (1.6-2.3); PHOSPHOROUS 4.9 mg/dL (2.5-4.5); POTASSIUM 4.1 mmol/L (3.6-5.2)
--- NOTE | 2017-07-09 08:25 | CP.PCM.PN ---
Subjective - Date & Time of Evaluation Date of Evaluation: 07/09/17 Time of Evaluation: 08:20 - Subjective Subjective: output over 2 liters afebrile when measured renal function stable lytes ok awake intubated comfortable not responsing to commands or questions ROS unable to obtain Not reponding to questions Objective - Vital Signs/Intake and Output Vital Signs (last 24 hours): Temp Pulse Resp BP Pulse Ox 98.5 F 68 17 151/64 H 100 07/09/17 04:00 07/09/17 06:59 07/09/17 06:59 07/09/17 06:59 07/09/17 06:59 Intake and Output: 07/09/17 07/09/17 06:59 18:59 Intake Total 1014.2 40 Output Total 1305 50 Balance -290.8 -10 - Medications Medications: Current Medications Albuterol/Ipratropium (Duoneb 3 Mg/0.5 Mg (3 Ml) Ud) 3 ml INH RQ6 [facility] Last Admin: 07/09/17 07:52 Dose: 3 ml Enalapril Maleate (Vasotec) 2.5 mg PO DAILY [facility] Last Admin: 07/08/17 14:16 Dose: 2.5 mg Famotidine (Pepcid) 20 mg IVP DAILY [facility] Last Admin: 07/08/17 09:58 Dose: 20 mg Ferric Sodium Gluconate Complex (Ferrlecit) 125 mg IVPB DAILY [facility] Stop: 07/16/17 13:31 Last Admin: 07/08/17 14:15 Dose: 125 mg Furosemide (Lasix) 40 mg IVP DAILY [facility] Last Admin: 07/08/17 14:15 Dose: 40 mg Heparin Sodium (Porcine) (Heparin) 5,000 units SC Q12 [facility] Last Admin: 07/08/17 21:16 Dose: 5,000 units Micafungin Sodium 100 mg/ (Sodium Chloride) 100 mls @ 100 mls/hr IV Q24H [facility] Last Admin: 07/08/17 20:27 Dose: 100 mls/hr Propofol (Diprivan) 1,000 mg in 100 mls @ 1.891 mls/hr IV .Q24H PRN; Protocol; 5 MCG/KG/MIN PRN Reason: TITRATE PER MD ORDER Last Titration: 07/09/17 06:00 Dose: 0 mcg/kg/min, 0 mls/hr Insulin Glargine (Lantus) 5 unit SC HS [facility] Last Admin: 07/08/17 21:18 Dose: 5 units Insulin Human Regular (Novolin R) 0 unit SC Q6 [facility] PRN Reason: Protocol Last Admin: 07/09/17 06:40 Dose: 2 unit Lorazepam (Ativan) 2 mg IVP Q6H PRN PRN Reason: Anxiety Last Admin: 07/04/17 14:43 Dose: 2 mg Metoprolol Tartrate (Lopressor) 25 mg PO Q12 [facility] Last Admin: 07/08/17 21:17 Dose: 25 mg Spironolactone (Aldactone) 25 mg PO DAILY [facility] Last Admin: 07/08/17 14:16 Dose: 25 mg Vitamin A (Vitamin A & D Oint Ud Foilpak) 1 ea TOP BID [facility] Last Admin: 07/08/17 17:26 Dose: 1 ea - Labs Labs: 07/09/17 06:13 07/09/17 06:14 PT 14.1 SECONDS (9.7-12.2) H 07/02/17 07:13 INR 1.3 07/02/17 07:13 APTT 49 SECONDS (21-34) H 07/03/17 06:20 - Constitutional Appears: No Acute Distress - Respiratory Exam Respiratory Exam: Clear to Ausculation Bilateral - Cardiovascular Exam Cardiovascular Exam: REGULAR RHYTHM - GI/Abdominal Exam GI & Abdominal Exam: Soft. absent: Distended, Tenderness - Back Exam Back Exam: absent: CVA tenderness (L) - Skin Skin Exam: Dry Assessment and Plan (1) Acute renal failure Status: Acute (2) CKD (chronic kidney disease) Status: Acute (3) Pulmonary edema Status: Acute - Assessment and Plan (Free Text) Plan: diuretics as needed continue supportive care fllow chems closely
--- NOTE | 2017-07-09 08:56 | RAD ---
HISTORY: Restore insufficiency COMPARISON: Portable chest 07/08/2017. FINDINGS: LUNGS: Endotracheal tube is unchanged in position. The for history volume is captured near end expiration. No definite acute infiltrate. No pulmonary venous derangement. PLEURA: No significant pleural effusion identified, no pneumothorax apparent. CARDIOVASCULAR: Mild cardiomegaly persist. Stable central hilar vascular markings without cephalization. OSSEOUS STRUCTURES: No significant abnormalities. VISUALIZED UPPER ABDOMEN: Nasogastric tube identified again. OTHER FINDINGS: None. IMPRESSION: No acute infiltrate pleural effusion or pneumothorax in the interval. Stable mild cardiomegaly.
[2017-07-09] MEDS: Vitamins A & D Oint UD Foilpak TOP SCH ×2 (10:50→18:10)
[2017-07-09] MEDS: Ferric Sodium Gluconat Complex 62.5 mg/5 ml Vial IVPB SCH (10:50)
--- NOTE | 2017-07-09 13:20 | PN ---
LOCATION: ICU 12. SUBJECTIVE: This is a 77-year-old female, seen and examined in rounds, is still intubated on CPAP to the ventilator. The entire chart is reviewed including but not limited to some most recent labs and radiology study result, current and previous events were reviewed. Most recent labs results showed white blood cells of 12.8 with hemoglobin 8.6, hematocrit 27.8 with normal platelet count, but still abnormal ABGs with BUN 57 and increased creatinine to 2.1. Blood glucose level 199 with AST 53, low albumin 3.0, low total protein 6.0. Most recent chest x-ray done today showed no acute infiltrate changes, but stable mild cardiomegaly. PHYSICAL EXAMINATION: GENERAL: A 77 years old female, appear to be awake, alert on vent. VITAL SIGNS: Afebrile with pulse of 66, blood pressure of 138/58. HEENT: Show pale dry oral mucous membrane. Nonicteric sclerae. LUNGS: Scattered crepitations with decreased air entry at bases. HEART: Positive S1 and S2. ABDOMEN: Soft, slight distention. No mass or organomegaly. No rebound tenderness or guarding. EXTREMITIES: Mild lower extremity edematous changes. No clubbing or cyanosis. NEUROLOGIC: No reported neurological deficits, sensory or motor. VASCULAR: Peripheral pulses are present, but weak bilaterally at the lower extremities. IMPRESSION: 1. Recent history bilateral pneumonia with respiratory failure, intubated. 2. Congestive heart failure with cardiomegaly, gradually improvement. 3. Malnutrition with hypoalbuminemia. 4. Recent patient of peptic ulcer disease. 5. Acute renal failure with dehydration. 6. Anemia, most like secondary to above. 7. Clinical septicemia. 8. Electrolyte imbalance. SUGGESTIONS: 1. The patient is a candidate for PEG insertion, again that is to be discussed at length with the family as well as admitting medical team. 2. Central hyperalimentation at this point is advised. 3. We will follow up closely with you. Diana Cazares MD
--- NOTE | 2017-07-09 15:23 | CT ---
PROCEDURE: CT Chest without contrast HISTORY: assess pleural effusion COMPARISON: None. TECHNIQUE: Contiguous axial images were obtained through the chest without intravenous contrast enhancement. Sagittal and coronal reconstructions were performed. Radiation dose (DLP): 503 mGy-cm. This CT exam was performed using one or more of the following dose reduction techniques: Automated exposure control, adjustment of the mA and/or kV according to patient size, and/or use of iterative reconstruction technique. FINDINGS: LUNGS: Gross as CT opacity scattered throughout the bilateral upper and lower lobe as well as the middle lobe. Trace patchy infiltrate is seen in the bilateral lower lobes as well as linear atelectasis or fibrosis in the left lower lobe near the base. Trace fibrotic changes in the bilateral pulmonary apices with a 3.6 mm nodule noncalcified at the right upper lobe and image 46 series 3 and a smaller 2 point 8 mm nodule seen at the left apex laterally, also noncalcified. There is difficult to exclude a in 9 mm nodule in the right upper lobe subpleural in location and image 32 though this may reflect trace atelectasis. Follow-up chest CT is advised follow-up resolution. The central airways appear clear. Limited bilateral basilar compressive atelectasis is identified at the lower lobes. MEDIASTINUM: Cardiomegaly is noted. There is moderate mediastinal lymphadenopathy including inferior pretracheal lymph node measuring 1.8 x 1.2 cm, right paratracheal lymph node measuring 2.5 x 1.2 cm cardiomegaly is noted. Mild bilateral pleural effusions are identified greater the right than left sides. Trace pericardial thickening or fluid noted. Coronary artery calcification is appreciated prominently kidneys extends via placed entry into the stomach with the tip off these examination parameters. Patient is intubated with the endotracheal tube terminating several cm above the merary. No pneumothorax. . PLEURA: As in mediastinum discussion. BONES: No fracture. No destructive lesion. UPPER ABDOMEN: Grossly unremarkable. OTHER FINDINGS: None. IMPRESSION: 1. Ground-glass opacity seen diffusely which suggests nonspecific the reversible interstitial pneumonitis with other etiology is possible. Clinically correlate. No alveolitis grossly evident. 2. Mild bilateral pleural effusions are cause compressive atelectasis the bilateral lower lobes mildly. Cardiomegaly and trace pericardial thickening or fluid. 3. Three pulmonary nodules identified as discussed above with 2 on the right 1 in the left upper lobe. The largest measure 9 mm and follow-up CT after therapy is advised as this may be represent a small area of atelectasis. 4. Moderate mediastinal lymphadenopathy.
--- NOTE | 2017-07-09 18:42 | CP.CCUPN ---
CCU Subjective - Physician Review Events Since Last Encounter (Free Text): 07/09/17 18:37 Neuro: alert and oriented Pulm: acute respiratory failure. diuresed well, chest CT shows minimal effusions, tolerating ps trials, extubated today. CV: hemodynamically stable. acute exacerbation of chronic systolic CHF, metoprolol, enalapril, lasix and spironolactone. Hem: no acute issues Renal: no acute issues, diuresing well. Endo: DM type 2, lantus 8 units qhs, RISS for coverage q6h GI: NPO, swallow eval tomorrow ID: stopped all abx except for micafungin to cover yeast in urine, 5 days of treatment. DVT proph - heparin sq GI proph - pepcid miller for strict I/O's during acute illness Code status - full code Critical Care Time spent 35 minutes Multi-disciplinary rounds were performed with house staff, nursing, speech therapy, respiratory therapy, pharmacy and nutrition with integrated input from the primary team/attending and other consulting services. The documented time is cumulative and includes review of patient data/exams/labs/chart review and examination of the patient on rounds and throughout the day; time is exclusive of any procedures or teaching time. CCU Objective - Vital Signs / Intake & Output Vital Signs (Last 4 hours): Vital Signs Temp Pulse Resp BP Pulse Ox 07/09/17 18:00 69 22 100 07/09/17 17:17 66 18 139/53 L 99 07/09/17 16:40 66 21 98 07/09/17 16:17 60 18 146/54 L 100 07/09/17 16:00 98.8 F 62 20 99 07/09/17 15:18 153/66 H 07/09/17 15:00 60 13 100 Intake and Output (Last 8hrs): Intake & Output 07/09/17 07/09/17 07/09/17 06:59 14:59 22:59 Intake Total 548.5 620 210 Output Total 490 1000 650 Balance 58.5 -380 -440 Intake: IV 0 Intake, IV Amount 28.5 100 Right Forearm 100 Right Hand 28.5 0 Tube Feeding 320 320 160 Other 200 200 50 Output: Urine 490 1000 650 Urethral (Miller) 490 1000 650 Other: # Bowel Movements 0 1 - Physical Exam Head: Positive for: Atraumatic, Normocephalic Extroacular Muscles: Positive for: EOMI Mouth: Positive for: Moist Mucous Membranes Respiratory/Chest: Positive for: Clear to Auscultation. Negative for: Wheezes, Rales, Rhonchi Cardiovascular: Positive for: Normal S1, S2, Irregular Rhythm, Tachycardic. Negative for: Bradycardic Abdomen: Positive for: Distention, Normal Bowel Sounds. Negative for: Tenderness Upper Extremity: Positive for: Normal Inspection. Negative for: Edema Lower Extremity: Positive for: Normal Inspection. Negative for: Edema Skin: Positive for: Warm, Dry, Normal Color Psychiatric: Positive for: Alert, Lethargic - Medications Active Medications: Active Medications Generic Name Dose Route Start Last Admin Trade Name Freq PRN Reason Stop Dose Admin Albuterol/Ipratropium 3 ml 07/09/17 14:00 07/09/17 16:31 Duoneb 3 Mg/0.5 Mg (3 Ml) Ud INH 3 ml QID [facility] Administration Enalapril Maleate 2.5 mg 07/08/17 13:00 07/09/17 12:47 Vasotec PO 2.5 mg DAILY [facility] Administration Famotidine 20 mg 06/26/17 10:00 07/09/17 10:51 Pepcid IVP 20 mg DAILY [facility] Administration Ferric Sodium Gluconate Complex 125 mg 07/08/17 13:30 07/09/17 10:50 Ferrlecit IVPB 07/16/17 13:31 125 mg DAILY [facility] Administration Furosemide 40 mg 07/08/17 11:45 07/09/17 10:51 Lasix IVP 40 mg DAILY [facility] Administration Heparin Sodium (Porcine) 5,000 units 07/08/17 13:15 07/09/17 10:50 Heparin SC 5,000 units Q12 [facility] Administration Micafungin Sodium 100 mg/ 100 mls @ 100 mls/hr 07/04/17 20:00 07/08/17 20:27 Sodium Chloride IV 100 mls/hr Q24H [facility] Administration Propofol 1,000 mg in 100 mls @ 1.891 mls/hr 07/08/17 20:35 07/09/17 06:00 Diprivan IV 0 mcg/kg/min .Q24H PRN 0 mls/hr TITRATE PER MD ORDER Titration Protocol 5 MCG/KG/MIN Insulin Glargine 8 unit 07/09/17 22:00 Lantus SC HS ASIM Insulin Human Regular 0 unit 07/08/17 13:17 07/09/17 18:10 Novolin R SC 6 unit Q6 [facility] Administration Protocol Lorazepam 2 mg 07/03/17 09:24 07/04/17 14:43 Ativan IVP 2 mg Q6H PRN Administration Anxiety Metoprolol Tartrate 25 mg 07/05/17 22:00 07/09/17 10:51 Lopressor PO 25 mg Q12 [facility] Administration Spironolactone 25 mg 07/08/17 13:15 07/09/17 10:51 Aldactone PO 25 mg DAILY [facility] Administration Vitamin A 1 ea 07/05/17 18:00 07/09/17 18:10 Vitamin A & D Oint Ud Foilpak TOP 1 ea BID [facility]IM Administration - Patient Studies Lab Studies: Lab Studies 07/09/17 07/09/17 07/09/17 Range/Units 17:45 11:40 06:35 WBC (4.8-10.8) K/uL RBC (3.80-5.20) Mil/uL Hgb (11.0-16.0) g/dL Hct (34.0-47.0) % MCV (81.0-99.0) fL MCH (27.0-31.0) pg MCHC (33.0-37.0) g/dL RDW (11.5-14.5) % Plt Count (130-400) K/uL MPV (7.2-11.7) fL Neut % (Auto) (50.0-75.0) % Lymph % (Auto) (20.0-40.0) % [place] % (Auto) (0.0-10.0) % Eos % (Auto) (0.0-4.0) % Baso % (Auto) (0.0-2.0) % Neut # (1.8-7.0) K/uL Lymph # (1.0-4.3) K/uL [place] # (0.0-0.8) K/uL Eos # (0.0-0.7) K/uL Baso # (0.0-0.2) K/uL Puncture Site pCO2 (35-45) mm/Hg pO2 (80-100) mm/Hg HCO3 (21-28) mmol/L ABG pH (7.35-7.45) ABG Total CO2 (22-28) mmol/L ABG O2 Saturation (95-98) % ABG Base Excess (-2.0-3.0) mmol/L ABG Hemoglobin (11.7-17.4) g/dL ABG Carboxyhemoglobin (0.5-1.5) % POC ABG HHb (Measured) (0.0-5.0) % ABG Methemoglobin (0.0-3.0) % Jasvir Test A-a O2 Difference mm/Hg Respiratory Index Hgb O2 Saturation (95.0-98.0) % Vent Mode Mechanical Rate FiO2 % Tidal Volume PEEP Sodium (132-148) mmol/L Potassium (3.6-5.2) mmol/L Chloride (98-107) mmol/L Carbon Dioxide (22-30) mmol/L Anion Gap (10-20) BUN (7-17) mg/dL Creatinine (0.7-1.2) MG/DL Est GFR ( Amer) Est GFR (Non-Af Amer) POC Glucose (mg/dL) 262 H 186 H 199 H (65-110) mg/dL Random Glucose (65-105) mg/dL Calcium (8.6-10.4) mg/dl Phosphorus (2.5-4.5) mg/dL Magnesium (1.6-2.3) mg/dL Total Bilirubin (0.2-1.3) mg/dL AST (14-36) U/L ALT (9-52) U/L Alkaline Phosphatase (38-126) U/L Total Protein (6.3-8.3) g/dL Albumin (3.5-5.0) g/dL Globulin (2.2-3.9) gm/dL Albumin/Globulin Ratio (1.0-2.1) 07/09/17 07/09/17 07/09/17 Range/Units 06:14 06:13 05:27 WBC 12.8 H (4.8-10.8) K/uL RBC 3.38 L (3.80-5.20) Mil/uL Hgb 8.7 L (11.0-16.0) g/dL Hct 27.8 L (34.0-47.0) % MCV 82.1 (81.0-99.0) fL MCH 25.6 L (27.0-31.0) pg MCHC 31.2 L (33.0-37.0) g/dL RDW 19.3 H (11.5-14.5) % Plt Count 162 (130-400) K/uL MPV 10.8 (7.2-11.7) fL Neut % (Auto) 69.7 (50.0-75.0) % Lymph % (Auto) 21.7 (20.0-40.0) % [place] % (Auto) 5.5 (0.0-10.0) % Eos % (Auto) 2.5 (0.0-4.0) % Baso % (Auto) 0.6 (0.0-2.0) % Neut # 8.9 H (1.8-7.0) K/uL Lymph # 2.8 (1.0-4.3) K/uL [place] # 0.7 (0.0-0.8) K/uL Eos # 0.3 (0.0-0.7) K/uL Baso # 0.1 (0.0-0.2) K/uL Puncture Site R rad pCO2 42 (35-45) mm/Hg pO2 130 H (80-100) mm/Hg HCO3 29.2 H (21-28) mmol/L ABG pH 7.46 H (7.35-7.45) ABG Total CO2 31.2 H (22-28) mmol/L ABG O2 Saturation 99.4 H (95-98) % ABG Base Excess 5.5 H (-2.0-3.0) mmol/L ABG Hemoglobin 8.4 L (11.7-17.4) g/dL ABG Carboxyhemoglobin 2.2 H (0.5-1.5) % POC ABG HHb (Measured) 0.6 (0.0-5.0) % ABG Methemoglobin 1.8 (0.0-3.0) % Jasvir Test Pos A-a O2 Difference 174.0 mm/Hg Respiratory Index 1.3 Hgb O2 Saturation 95.4 (95.0-98.0) % Vent Mode Prvc Mechanical Rate 10 FiO2 50.0 % Tidal Volume 400 PEEP 5 Sodium 139 (132-148) mmol/L Potassium 4.1 (3.6-5.2) mmol/L Chloride 101 (98-107) mmol/L Carbon Dioxide 28 (22-30) mmol/L Anion Gap 15 (10-20) BUN 57 H (7-17) mg/dL Creatinine 2.1 H (0.7-1.2) MG/DL Est GFR ( Amer) 28 Est GFR (Non-Af Amer) 23 POC Glucose (mg/dL) (65-110) mg/dL Random Glucose 167 H (65-105) mg/dL Calcium 8.7 (8.6-10.4) mg/dl Phosphorus 4.9 H (2.5-4.5) mg/dL Magnesium 1.7 (1.6-2.3) mg/dL Total Bilirubin 0.6 (0.2-1.3) mg/dL AST 32 (14-36) U/L ALT 53 H (9-52) U/L Alkaline Phosphatase 92 (38-126) U/L Total Protein 6.0 L (6.3-8.3) g/dL Albumin 3.0 L (3.5-5.0) g/dL Globulin 3.0 (2.2-3.9) gm/dL Albumin/Globulin Ratio 1.0 (1.0-2.1) 07/09/17 Range/Units 00:06 WBC (4.8-10.8) K/uL RBC (3.80-5.20) Mil/uL Hgb (11.0-16.0) g/dL Hct (34.0-47.0) % MCV (81.0-99.0) fL MCH (27.0-31.0) pg MCHC (33.0-37.0) g/dL RDW (11.5-14.5) % Plt Count (130-400) K/uL MPV (7.2-11.7) fL Neut % (Auto) (50.0-75.0) % Lymph % (Auto) (20.0-40.0) % [place] % (Auto) (0.0-10.0) % Eos % (Auto) (0.0-4.0) % Baso % (Auto) (0.0-2.0) % Neut # (1.8-7.0) K/uL Lymph # (1.0-4.3) K/uL [place] # (0.0-0.8) K/uL Eos # (0.0-0.7) K/uL Baso # (0.0-0.2) K/uL Puncture Site pCO2 (35-45) mm/Hg pO2 (80-100) mm/Hg HCO3 (21-28) mmol/L ABG pH (7.35-7.45) ABG Total CO2 (22-28) mmol/L ABG O2 Saturation (95-98) % ABG Base Excess (-2.0-3.0) mmol/L ABG Hemoglobin (11.7-17.4) g/dL ABG Carboxyhemoglobin (0.5-1.5) % POC ABG HHb (Measured) (0.0-5.0) % ABG Methemoglobin (0.0-3.0) % Jasvir Test A-a O2 Difference mm/Hg Respiratory Index Hgb O2 Saturation (95.0-98.0) % Vent Mode Mechanical Rate FiO2 % Tidal Volume PEEP Sodium (132-148) mmol/L Potassium (3.6-5.2) mmol/L Chloride (98-107) mmol/L Carbon Dioxide (22-30) mmol/L Anion Gap (10-20) BUN (7-17) mg/dL Creatinine (0.7-1.2) MG/DL Est GFR ( Amer) Est GFR (Non-Af Amer) POC Glucose (mg/dL) 191 H (65-110) mg/dL Random Glucose (65-105) mg/dL Calcium (8.6-10.4) mg/dl Phosphorus (2.5-4.5) mg/dL Magnesium (1.6-2.3) mg/dL Total Bilirubin (0.2-1.3) mg/dL AST (14-36) U/L ALT (9-52) U/L Alkaline Phosphatase (38-126) U/L Total Protein (6.3-8.3) g/dL Albumin (3.5-5.0) g/dL Globulin (2.2-3.9) gm/dL Albumin/Globulin Ratio (1.0-2.1) Laboratory Results - last 24 hr 07/09/17 07/09/17 07/09/17 00:06 05:27 06:13 WBC 12.8 H RBC 3.38 L Hgb 8.7 L Hct 27.8 L MCV 82.1 MCH 25.6 L MCHC 31.2 L RDW 19.3 H Plt Count 162 MPV 10.8 Neut % (Auto) 69.7 Lymph % (Auto) 21.7 [place] % (Auto) 5.5 Eos % (Auto) 2.5 Baso % (Auto) 0.6 Neut # 8.9 H Lymph # 2.8 [place] # 0.7 Eos # 0.3 Baso # 0.1 Puncture Site R rad pCO2 42 pO2 130 H HCO3 29.2 H ABG pH 7.46 H ABG Total CO2 31.2 H ABG O2 Saturation 99.4 H ABG Base Excess 5.5 H ABG Hemoglobin 8.4 L ABG Carboxyhemoglobin 2.2 H POC ABG HHb (Measured) 0.6 ABG Methemoglobin 1.8 Jasvir Test Pos A-a O2 Difference 174.0 Respiratory Index 1.3 Hgb O2 Saturation 95.4 Vent Mode Prvc Mechanical Rate 10 FiO2 50.0 Tidal Volume 400 PEEP 5 Sodium Potassium Chloride Carbon Dioxide Anion Gap BUN Creatinine Est GFR ( Amer) Est GFR (Non-Af Amer) POC Glucose (mg/dL) 191 H Random Glucose Calcium Phosphorus Magnesium Total Bilirubin AST ALT Alkaline Phosphatase Total Protein Albumin Globulin Albumin/Globulin Ratio 07/09/17 07/09/17 07/09/17 06:14 06:35 11:40 WBC RBC Hgb Hct MCV MCH MCHC RDW Plt Count MPV Neut % (Auto) Lymph % (Auto) [place] % (Auto) Eos % (Auto) Baso % (Auto) Neut # Lymph # [place] # Eos # Baso # Puncture Site pCO2 pO2 HCO3 ABG pH ABG Total CO2 ABG O2 Saturation ABG Base Excess ABG Hemoglobin ABG Carboxyhemoglobin POC ABG HHb (Measured) ABG Methemoglobin Jasvir Test A-a O2 Difference Respiratory Index Hgb O2 Saturation Vent Mode Mechanical Rate FiO2 Tidal Volume PEEP Sodium 139 Potassium 4.1 Chloride 101 Carbon Dioxide 28 Anion Gap 15 BUN 57 H Creatinine 2.1 H Est GFR ( Amer) 28 Est GFR (Non-Af Amer) 23 POC Glucose (mg/dL) 199 H 186 H Random Glucose 167 H Calcium 8.7 Phosphorus 4.9 H Magnesium 1.7 Total Bilirubin 0.6 AST 32 ALT 53 H Alkaline Phosphatase 92 Total Protein 6.0 L Albumin 3.0 L Globulin 3.0 Albumin/Globulin Ratio 1.0 07/09/17 17:45 WBC RBC Hgb Hct MCV MCH MCHC RDW Plt Count MPV Neut % (Auto) Lymph % (Auto) [place] % (Auto) Eos % (Auto) Baso % (Auto) Neut # Lymph # [place] # Eos # Baso # Puncture Site pCO2 pO2 HCO3 ABG pH ABG Total CO2 ABG O2 Saturation ABG Base Excess ABG Hemoglobin ABG Carboxyhemoglobin POC ABG HHb (Measured) ABG Methemoglobin Jasvir Test A-a O2 Difference Respiratory Index Hgb O2 Saturation Vent Mode Mechanical Rate FiO2 Tidal Volume PEEP Sodium Potassium Chloride Carbon Dioxide Anion Gap BUN Creatinine Est GFR ( Amer) Est GFR (Non-Af Amer) POC Glucose (mg/dL) 262 H Random Glucose Calcium Phosphorus Magnesium Total Bilirubin AST ALT Alkaline Phosphatase Total Protein Albumin Globulin Albumin/Globulin Ratio Fingerstick Blood Sugar Results: 262
[2017-07-09] MEDS: Micafungin 100 MG in Sodium Chloride 0.9% 100 ML IV SCH (20:29)
--- NOTE | 2017-07-09 21:21 | CP.PCM.PN ---
Subjective - Date & Time of Evaluation Date of Evaluation: 07/09/17 Time of Evaluation: 08:10 - Subjective Subjective: Patient seen and evaluated Intubated and responsive and moving extremities Objective - Vital Signs/Intake and Output Vital Signs (last 24 hours): Temp Pulse Resp BP Pulse Ox 98.9 F 76 18 152/59 H 99 07/09/17 20:00 07/09/17 20:00 07/09/17 20:00 07/09/17 20:18 07/09/17 20:00 Intake and Output: 07/09/17 07/10/17 18:59 06:59 Intake Total 830 380 Output Total 1650 130 Balance -820 250 - Medications Medications: Current Medications Albuterol/Ipratropium (Duoneb 3 Mg/0.5 Mg (3 Ml) Ud) 3 ml INH QID [facility] Last Admin: 07/09/17 19:34 Dose: 3 ml Enalapril Maleate (Vasotec) 2.5 mg PO DAILY [facility] Last Admin: 07/09/17 12:47 Dose: 2.5 mg Famotidine (Pepcid) 20 mg IVP DAILY [facility] Last Admin: 07/09/17 10:51 Dose: 20 mg Ferric Sodium Gluconate Complex (Ferrlecit) 125 mg IVPB DAILY [facility] Stop: 07/16/17 13:31 Last Admin: 07/09/17 10:50 Dose: 125 mg Furosemide (Lasix) 40 mg IVP DAILY [facility] Last Admin: 07/09/17 10:51 Dose: 40 mg Heparin Sodium (Porcine) (Heparin) 5,000 units SC Q12 [facility] Last Admin: 07/09/17 10:50 Dose: 5,000 units Micafungin Sodium 100 mg/ (Sodium Chloride) 100 mls @ 100 mls/hr IV Q24H [facility] Last Admin: 07/09/17 20:29 Dose: 100 mls/hr Propofol (Diprivan) 1,000 mg in 100 mls @ 1.891 mls/hr IV .Q24H PRN; Protocol; 5 MCG/KG/MIN PRN Reason: TITRATE PER MD ORDER Last Titration: 07/09/17 06:00 Dose: 0 mcg/kg/min, 0 mls/hr Insulin Glargine (Lantus) 8 unit SC HS [facility] Insulin Human Regular (Novolin R) 0 unit SC Q6 [facility] PRN Reason: Protocol Last Admin: 07/09/17 18:10 Dose: 6 unit Lorazepam (Ativan) 2 mg IVP Q6H PRN PRN Reason: Anxiety Last Admin: 07/04/17 14:43 Dose: 2 mg Metoprolol Tartrate (Lopressor) 25 mg PO Q12 [facility] Last Admin: 07/09/17 10:51 Dose: 25 mg Spironolactone (Aldactone) 25 mg PO DAILY [facility] Last Admin: 07/09/17 10:51 Dose: 25 mg Vitamin A (Vitamin A & D Oint Ud Foilpak) 1 ea TOP BID [facility] Last Admin: 07/09/17 18:10 Dose: 1 ea - Labs Labs: 07/09/17 06:13 07/09/17 06:14 PT 14.1 SECONDS (9.7-12.2) H 07/02/17 07:13 INR 1.3 07/02/17 07:13 APTT 49 SECONDS (21-34) H 07/03/17 06:20 - Head Exam Head Exam: ATRAUMATIC, NORMAL INSPECTION - Eye Exam Eye Exam: EOMI, PERRL - ENT Exam ENT Exam: Mucous Membranes Moist - Respiratory Exam Respiratory Exam: Clear to Ausculation Bilateral, NORMAL BREATHING PATTERN - Cardiovascular Exam Cardiovascular Exam: Irregular Rhythm, +S1, +S2 - GI/Abdominal Exam GI & Abdominal Exam: Soft, Normal Bowel Sounds - Neurological Exam Neurological Exam: Alert - Skin Skin Exam: Warm Assessment and Plan - Assessment and Plan (Free Text) Assessment: Systolic CHF -Echocardiogram reviewed, EF 35%, moderate mitral regurg -CXR Review, pulmonary venous congestion -Plan for further coronary workup once respiratory and renal function improve -Lasix 40mg IV daily -Continue metorporlol, enalapril, spironolactone Paroxysmal afib, controlled -Hold anticoagulation therapy due to GI bleed Management per ICU team
[2017-07-09] MEDS: (Lantus) Insulin Glargine, Recombinant SC SCH (22:01)
[2017-07-10] MEDS: (Novolin R) Insulin Human Regular 100 units/ml vial SC SCH ×4 (00:38→18:59)
[2017-07-10 06:08] LABS: ABG ALLEN TEST POS; ARTERIAL BLOOD HGB O2 SAT 95.6 % (95.0-98.0); CARBOXYHEMOGLOBIN 2.1 % (0.5-1.5); DRAW SITE R RAD; HHB 0.9 % (0.0-5.0); METHEMOGLOBIN 1.4 % (0.0-3.0)
[2017-07-10 06:46] LABS: BASO # 0.1 K/uL (0.0-0.2); BASO % 0.7 % (0.0-2.0); EOS # 0.2 K/uL (0.0-0.7); EOS % 1.4 % (0.0-4.0); HEMATOCRIT 31.3 % (34.0-47.0); LYMPH # 3.2 K/uL (1.0-4.3); LYMPH % 24.1 % (20.0-40.0); MEAN CELL VOLUME 82.3 fL (81.0-99.0); MEAN CORPUSCULAR HEMOGLOBIN 25.7 pg (27.0-31.0); MEAN CORPUSCULAR HGB CONC 31.3 g/dL (33.0-37.0); MONO % 7.3 % (0.0-10.0); NRBC % 0.2 % (0.0-2.0); RED CELL DISTRIBUTION WIDTH 18.8 % (11.5-14.5); WHITE BLOOD COUNT 13.5 K/uL (4.8-10.8)
[2017-07-10 07:05] LABS: BILIRUBIN,TOTAL 0.6 mg/dL (0.2-1.3); CALCIUM 9.2 mg/dl (8.6-10.4); MAGNESIUM 1.8 mg/dL (1.6-2.3); PHOSPHOROUS 4.6 mg/dL (2.5-4.5); POTASSIUM 3.8 mmol/L (3.6-5.2); TOTAL PROTEIN 6.7 g/dL (6.3-8.3)
--- NOTE | 2017-07-10 07:58 | RAD ---
HISTORY: intubation COMPARISON: Portable chest 07/09/2017. FINDINGS: LUNGS: Nasogastric tube is not identified currently. Nasogastric tube appears unchanged in position. Overall aeration appears improved. No definite infiltrate identified bilaterally. PLEURA: No significant pleural effusion identified, no pneumothorax apparent. CARDIOVASCULAR: Cardiomediastinal silhouette appears stable. No pulmonary vascular derangement appreciated. OSSEOUS STRUCTURES: No significant abnormalities. VISUALIZED UPPER ABDOMEN: Normal. OTHER FINDINGS: None. IMPRESSION: Extubation suspected. Clinically correlate. No acute infiltrate or pleural effusion identified bilaterally.
[2017-07-10] MEDS: Albuterol-Ipratrop 3 mg / 0.5 (3 ml) UD INH SCH ×3 (09:36→15:53)
[2017-07-10] MEDS: Ferric Sodium Gluconat Complex 62.5 mg/5 ml Vial IVPB SCH (10:06)
[2017-07-10] MEDS: Vitamins A & D Oint UD Foilpak TOP SCH ×2 (10:08→18:59)
--- NOTE | 2017-07-10 11:53 | PN ---
DATE: 07/10/2017 LOCATION: ICU 12 SUBJECTIVE: This 77-year-old female seen in rounds has been on Ventimask on and off, then subsequently on nasal cannula appeared to be somewhat awake and alert. The entire chart is reviewed including, but not limited to the most recent lab and radiology study results, current and previous medication list, current and the previous medical events. The patient had a chest CT scan yesterday. Report is seen and indicative of reversed interstitial pneumonia with mild bilateral pleural effusion and discrete pulmonary nodules. Moderate mediastinal hyperadenopathy is seen reactive to infectious process. Today's chest x-ray is still pending. Today's white blood cells elevated to 15.5 with low hemoglobin 9.8, low hematocrit 31.3 with normal platelet count, but abnormal ABGs with BUN elevated to 59, creatinine 1.9 with blood glucose level 116, and phosphorus of 4.6, elevated. AST elevated to 37 with ALT 27 with low albumin of 3.4. No reported active bleeding. No actual chest pain and no reported palpitation. The patient's oral intake is still very inadequate PHYSICAL EXAMINATION GENERAL: A 77-year-old female. VITAL SIGNS: Afebrile with pulse of 70, and respiratory rate of 20 to 24 with a blood pressure of 140/66. HEENT: Showed pale dry oral mucous membranes. Nonicteric sclerae. LUNGS: Scattered crepitation with decrease air entry at bases. HEART: Positive S1 and S2. ABDOMEN: Soft with slight generalized tenderness. No mass or organomegaly. No rebound tenderness or guarding. EXTREMITIES: Mild lower extremity edematous changes. No clubbing or cyanosis. NEUROLOGIC: No new reported neurological deficits, sensory or motor. IMPRESSION: 1. Bilateral pneumonia with respiratory insufficiency. The patient was extubated yesterday. 2. Bilateral pleural effusion with lymphadenopathy, most likely reactive to infections process. 3. Congestive heart failure with cardiomegaly, improving gradually and clinically. 4. Malnutrition with hypoalbuminemia. 5. Renal insufficiency with dehydration. 6. Peptic ulcer disease. 7. Anemia most likely secondary to above. 8. Clinical septicemia, on antibiotics. 9. Electrolyte imbalance, improving gradually. SUGGESTIONS: 1. Continue current management. 2. Close observation with repeat swallow evaluation after 24 hours to 48 hours for possible PEG insertion, pending on the outcome of the swallow evaluation Diana Cazares MD cc: Diana Cazares MD
--- NOTE | 2017-07-10 17:24 | CP.PCM.PN ---
Subjective - Date & Time of Evaluation Date of Evaluation: 07/10/17 Time of Evaluation: 16:05 - Subjective Subjective: Patient evaluated this morning, d/w nursing staff. Meds/consultants eval/events/ investigations reviewed. NG tube removed, as patient was gaging on it. Bedside swallow eval done patient tolerated apple sauce, slowly drank thin water. Patient has been on NC 3lit comfortable. Objective - Vital Signs/Intake and Output Vital Signs (last 24 hours): Temp Pulse Resp BP Pulse Ox 97.9 F 64 17 128/63 96 07/10/17 12:00 07/10/17 15:17 07/10/17 15:17 07/10/17 15:17 07/10/17 15:17 Intake and Output: 07/10/17 07/10/17 06:59 18:59 Intake Total 1040 460 Output Total 745 270 Balance 295 190 - Medications Medications: Current Medications Albuterol/Ipratropium (Duoneb 3 Mg/0.5 Mg (3 Ml) Ud) 3 ml INH QID [facility] Last Admin: 07/10/17 15:53 Dose: 3 ml Enalapril Maleate (Vasotec) 2.5 mg PO DAILY [facility] Last Admin: 07/10/17 10:07 Dose: 2.5 mg Famotidine (Pepcid) 20 mg IVP DAILY [facility] Last Admin: 07/10/17 10:06 Dose: 20 mg Ferric Sodium Gluconate Complex (Ferrlecit) 125 mg IVPB DAILY [facility] Stop: 07/16/17 13:31 Last Admin: 07/10/17 10:06 Dose: 125 mg Furosemide (Lasix) 40 mg IVP DAILY [facility] Last Admin: 07/10/17 11:30 Dose: 40 mg Heparin Sodium (Porcine) (Heparin) 5,000 units SC Q12 [facility] Last Admin: 07/10/17 10:07 Dose: 5,000 units Micafungin Sodium 100 mg/ (Sodium Chloride) 100 mls @ 100 mls/hr IV Q24H [facility] Last Admin: 07/09/17 20:29 Dose: 100 mls/hr Insulin Glargine (Lantus) 8 unit SC HS [facility] Last Admin: 07/09/17 22:01 Dose: 8 units Insulin Human Regular (Novolin R) 0 unit SC Q6 [facility] PRN Reason: Protocol Last Admin: 07/10/17 11:32 Dose: Not Given Metoprolol Tartrate (Lopressor) 25 mg PO Q12 [facility] Last Admin: 07/10/17 10:07 Dose: 25 mg Spironolactone (Aldactone) 25 mg PO DAILY [facility] Last Admin: 07/10/17 10:07 Dose: 25 mg Vitamin A (Vitamin A & D Oint Ud Foilpak) 1 ea TOP BID [facility] Last Admin: 07/10/17 10:08 Dose: 1 ea - Labs Labs: 07/10/17 06:41 07/10/17 06:41 PT 14.1 SECONDS (9.7-12.2) H 07/02/17 07:13 INR 1.3 07/02/17 07:13 APTT 49 SECONDS (21-34) H 07/03/17 06:20 - Additional Findings Additional findings: * HEENT MICHAEL * Neck Supple * Chest clear, no rales or wheezes * CVS regular * PA soft, nt, bs present * Ext no edema, skin turgor normal * [employer] awake, following commands, moving all ext. Assessment and Plan - Assessment and Plan (Free Text) Assessment: Assessment/Plan Resp failure with chf, pulm edema inbated, extubated, reintubated, extubated again, tolerating well, will dc nebs, ng discontinued, mechanically soft, frequent diet started UTI mycofungin, off other abx PAF now sinus can not anticagulate due to GI bleeding, on metoprolol, low dose enalpril Anemia needing transfusion, PUD, s/p endoscopy this admission Diabetes, started on low dose daily lantus. CRI stable, respond to diuresis DVT prophylaxis heparin subq probably transfer to tele tomorrow if stable tonight.
[2017-07-10] MEDS: Micafungin 100 MG in Sodium Chloride 0.9% 100 ML IV SCH (19:43)
--- NOTE | 2017-07-10 19:52 | CP.PCM.PN ---
Subjective - Date & Time of Evaluation Date of Evaluation: 07/10/17 Time of Evaluation: 13:00 - Subjective Subjective: Patient seen and evaluated Extubated and comfortable Follow commands Objective - Vital Signs/Intake and Output Vital Signs (last 24 hours): Temp Pulse Resp BP Pulse Ox 97.6 F 66 24 137/58 L 98 07/10/17 16:00 07/10/17 19:00 07/10/17 19:00 07/10/17 19:17 07/10/17 19:00 Intake and Output: 07/10/17 07/11/17 18:59 06:59 Intake Total 700 0 Output Total 1075 40 Balance -375 -40 - Medications Medications: Current Medications Enalapril Maleate (Vasotec) 2.5 mg PO DAILY [facility] Last Admin: 07/10/17 10:07 Dose: 2.5 mg Famotidine (Pepcid) 20 mg IVP DAILY [facility] Last Admin: 07/10/17 10:06 Dose: 20 mg Ferric Sodium Gluconate Complex (Ferrlecit) 125 mg IVPB DAILY [facility] Stop: 07/16/17 13:31 Last Admin: 07/10/17 10:06 Dose: 125 mg Furosemide (Lasix) 40 mg IVP DAILY [facility] Last Admin: 07/10/17 11:30 Dose: 40 mg Heparin Sodium (Porcine) (Heparin) 5,000 units SC Q12 [facility] Last Admin: 07/10/17 10:07 Dose: 5,000 units Micafungin Sodium 100 mg/ (Sodium Chloride) 100 mls @ 100 mls/hr IV Q24H [facility] Last Admin: 07/10/17 19:43 Dose: 100 mls/hr Insulin Glargine (Lantus) 8 unit SC HS [facility] Last Admin: 07/09/17 22:01 Dose: 8 units Insulin Human Regular (Novolin R) 0 unit SC Q6 [facility] PRN Reason: Protocol Last Admin: 07/10/17 18:59 Dose: Not Given Metoprolol Tartrate (Lopressor) 25 mg PO Q12 [facility] Last Admin: 07/10/17 10:07 Dose: 25 mg Spironolactone (Aldactone) 25 mg PO DAILY [facility] Last Admin: 07/10/17 10:07 Dose: 25 mg Vitamin A (Vitamin A & D Oint Ud Foilpak) 1 ea TOP BID [facility] Last Admin: 07/10/17 18:59 Dose: 1 ea - Labs Labs: 07/10/17 06:41 07/10/17 06:41 PT 14.1 SECONDS (9.7-12.2) H 07/02/17 07:13 INR 1.3 07/02/17 07:13 APTT 49 SECONDS (21-34) H 07/03/17 06:20 - Head Exam Head Exam: ATRAUMATIC, NORMAL INSPECTION - Eye Exam Eye Exam: EOMI, PERRL - ENT Exam ENT Exam: Mucous Membranes Moist - Neck Exam Neck Exam: Full ROM - Respiratory Exam Respiratory Exam: Clear to Ausculation Bilateral, NORMAL BREATHING PATTERN - Cardiovascular Exam Cardiovascular Exam: Irregular Rhythm, +S1, +S2 - GI/Abdominal Exam GI & Abdominal Exam: Soft, Normal Bowel Sounds - Extremities Exam Extremities Exam: Full ROM - Neurological Exam Neurological Exam: Alert, Awake - Psychiatric Exam Psychiatric exam: Normal Mood - Skin Skin Exam: Warm Assessment and Plan - Assessment and Plan (Free Text) Assessment: 1. CAD s/p Non STEMI 2. Paraxysmal A Fib not on anticoagulation due to GI bleeding 3. DM 2 4. CKD 5. S/P Respiratory failure 6. Ischemic CMP with systolic CHF 7. Severe MR For ([facility]) Cath Tuesday
[2017-07-10] MEDS: (Lantus) Insulin Glargine, Recombinant SC SCH (22:10)
[2017-07-11] MEDS: (Novolin R) Insulin Human Regular 100 units/ml vial SC SCH ×5 (00:44→17:39)
[2017-07-11] MEDS: Acetaminophen 650mg/20.3ml solution UD PO PRN (02:35)
[2017-07-11 06:19] LABS: BASO # 0.1 K/uL (0.0-0.2); BASO % 0.6 % (0.0-2.0); EOS # 0.1 K/uL (0.0-0.7); EOS % 0.9 % (0.0-4.0); HEMATOCRIT 36.4 % (34.0-47.0); LYMPH # 3.5 K/uL (1.0-4.3); LYMPH % 30.2 % (20.0-40.0); MEAN CELL VOLUME 83.6 fL (81.0-99.0); MEAN CORPUSCULAR HEMOGLOBIN 25.5 pg (27.0-31.0); MEAN CORPUSCULAR HGB CONC 30.5 g/dL (33.0-37.0); MEAN PLATELET VOLUME 10.8 fL (7.2-11.7); MONO # 0.8 K/uL (0.0-0.8); MONO % 6.9 % (0.0-10.0); NRBC % 0.4 % (0.0-2.0); WHITE BLOOD COUNT 11.6 K/uL (4.8-10.8)
[2017-07-11 06:43] LABS: ALB/GLOB RATIO 0.8 (1.0-2.1); BILIRUBIN,TOTAL 0.8 mg/dL (0.2-1.3); CALCIUM 9.2 mg/dl (8.6-10.4); PHOSPHOROUS 4.8 mg/dL (2.5-4.5); POTASSIUM 4.8 mmol/L (3.6-5.2); TOTAL PROTEIN 7.6 g/dL (6.3-8.3)
--- NOTE | 2017-07-11 06:44 | CP.PCM.PN ---
Subjective - Date & Time of Evaluation Date of Evaluation: 07/11/17 Time of Evaluation: 06:40 - Subjective Subjective: Patient converted to afib from sinus, restarted amiodarone, therapeutic anticoagulation contraindicated due to GI bleed. Objective - Vital Signs/Intake and Output Vital Signs (last 24 hours): Temp Pulse Resp BP Pulse Ox 97.4 F L 134 H 22 120/42 L 93 L 07/11/17 02:35 07/11/17 04:18 07/11/17 04:18 07/11/17 04:18 07/11/17 04:18 Intake and Output: 07/10/17 07/11/17 18:59 06:59 Intake Total 700 140 Output Total 1075 40 Balance -375 100 - Medications Medications: Current Medications Acetaminophen (Tylenol 650mg/20.3ml Solution Ud) 650 mg PO Q6H PRN PRN Reason: for pain 4-6 Last Admin: 07/11/17 02:35 Dose: 650 mg Amiodarone HCl (Cordarone) 200 mg PO BID [facility] Amiodarone HCl (Cordarone) 400 mg PO STAT [facility] Stop: 07/11/17 06:40 Enalapril Maleate (Vasotec) 2.5 mg PO DAILY [facility] Last Admin: 07/10/17 10:07 Dose: 2.5 mg Famotidine (Pepcid) 20 mg IVP DAILY [facility] Last Admin: 07/10/17 10:06 Dose: 20 mg Ferric Sodium Gluconate Complex (Ferrlecit) 125 mg IVPB DAILY [facility] Stop: 07/16/17 13:31 Last Admin: 07/10/17 10:06 Dose: 125 mg Furosemide (Lasix) 40 mg IVP DAILY [facility] Last Admin: 07/10/17 11:30 Dose: 40 mg Heparin Sodium (Porcine) (Heparin) 5,000 units SC Q12 [facility] Last Admin: 07/10/17 22:11 Dose: 5,000 units Micafungin Sodium 100 mg/ (Sodium Chloride) 100 mls @ 100 mls/hr IV Q24H [facility] Last Admin: 07/10/17 19:43 Dose: 100 mls/hr Insulin Glargine (Lantus) 8 unit SC HS [facility] Last Admin: 07/10/17 22:10 Dose: 8 units Insulin Human Regular (Novolin R) 0 unit SC Q6 [facility] PRN Reason: Protocol Last Admin: 07/11/17 06:18 Dose: 4 unit Metoprolol Tartrate (Lopressor) 25 mg PO Q12 [facility] Last Admin: 07/10/17 22:11 Dose: 25 mg Spironolactone (Aldactone) 25 mg PO DAILY [facility] Last Admin: 07/10/17 10:07 Dose: 25 mg Vitamin A (Vitamin A & D Oint Ud Foilpak) 1 ea TOP BID [facility] Last Admin: 07/10/17 18:59 Dose: 1 ea - Labs Labs: 07/11/17 06:12 07/10/17 06:41 PT 14.1 SECONDS (9.7-12.2) H 07/02/17 07:13 INR 1.3 07/02/17 07:13 APTT 49 SECONDS (21-34) H 07/03/17 06:20
--- NOTE | 2017-07-11 09:58 | RAD ---
HISTORY: chf COMPARISON: Portable chest 07/10/2017. FINDINGS: Nasonex tube is been removed apparently. LUNGS: Trace residual linear atelectasis identified in the inferior left lung zone potential patchy infiltrate or atelectasis remaining as well. PLEURA: No significant pleural effusion identified, no pneumothorax apparent. CARDIOVASCULAR: Normal. OSSEOUS STRUCTURES: No significant abnormalities. VISUALIZED UPPER ABDOMEN: Normal. OTHER FINDINGS: None. IMPRESSION: Limited residual linear atelectasis or patchy infiltrate/ atelectasis in the left base with remaining lung dejesus clear. Prior nasal tube has been removed.
[2017-07-11] MEDS: Ferric Sodium Gluconat Complex 62.5 mg/5 ml Vial IVPB SCH (10:27)
[2017-07-11] MEDS: Vitamins A & D Oint UD Foilpak TOP SCH ×2 (10:30→17:31)
--- NOTE | 2017-07-11 10:45 | CP.PCM.PN ---
Subjective - Date & Time of Evaluation Date of Evaluation: 07/11/17 Time of Evaluation: 10:43 - Subjective Subjective: s/p extubation [id number] creat 1.8- lower good response to diuretics CHF resolved on CXR resopnsive, lethargic Objective - Vital Signs/Intake and Output Vital Signs (last 24 hours): Temp Pulse Resp BP Pulse Ox 97.4 F L 126 H 20 93/59 L 94 L 07/11/17 02:35 07/11/17 07:18 07/11/17 07:18 07/11/17 10:29 07/11/17 05:18 Intake and Output: 07/11/17 07/11/17 06:59 18:59 Intake Total 200 Output Total 450 Balance -250 - Medications Medications: Current Medications Acetaminophen (Tylenol 650mg/20.3ml Solution Ud) 650 mg PO Q6H PRN PRN Reason: for pain 4-6 Last Admin: 07/11/17 02:35 Dose: 650 mg Amiodarone HCl (Cordarone) 200 mg PO BID [facility] Last Admin: 07/11/17 10:28 Dose: 200 mg Famotidine (Pepcid) 20 mg IVP DAILY [facility] Last Admin: 07/11/17 10:29 Dose: 20 mg Ferric Sodium Gluconate Complex (Ferrlecit) 125 mg IVPB DAILY [facility] Stop: 07/16/17 13:31 Last Admin: 07/11/17 10:27 Dose: 125 mg Furosemide (Lasix) 40 mg IVP DAILY [facility] Last Admin: 07/11/17 10:29 Dose: Not Given Heparin Sodium (Porcine) (Heparin) 5,000 units SC Q12 [facility] Last Admin: 07/11/17 10:27 Dose: 5,000 units Micafungin Sodium 100 mg/ (Sodium Chloride) 100 mls @ 100 mls/hr IV Q24H [facility] Last Admin: 07/10/17 19:43 Dose: 100 mls/hr Insulin Glargine (Lantus) 8 unit SC HS [facility] Last Admin: 07/10/17 22:10 Dose: 8 units Insulin Human Regular (Novolin R) 0 unit SC Q6 [facility] PRN Reason: Protocol Last Admin: 07/11/17 06:18 Dose: 4 unit Metoprolol Tartrate (Lopressor) 25 mg PO Q12 [facility] Last Admin: 07/11/17 10:29 Dose: Not Given Spironolactone (Aldactone) 25 mg PO DAILY [facility] Last Admin: 07/11/17 10:28 Dose: 25 mg Vitamin A (Vitamin A & D Oint Ud Foilpak) 1 ea TOP BID [facility] Last Admin: 07/11/17 10:30 Dose: 1 ea - Labs Labs: 07/11/17 06:12 07/11/17 06:12 PT 14.1 SECONDS (9.7-12.2) H 07/02/17 07:13 INR 1.3 07/02/17 07:13 APTT 49 SECONDS (21-34) H 07/03/17 06:20 - Constitutional Appears: No Acute Distress, Chronically Ill - Head Exam Head Exam: ATRAUMATIC, NORMAL INSPECTION - Eye Exam Eye Exam: EOMI, Normal appearance - Neck Exam Neck Exam: Normal Inspection. absent: Tenderness - Respiratory Exam Respiratory Exam: Clear to Ausculation Bilateral, NORMAL BREATHING PATTERN - Cardiovascular Exam Cardiovascular Exam: REGULAR RHYTHM, +S1 - GI/Abdominal Exam GI & Abdominal Exam: Soft. absent: Tenderness - Extremities Exam Extremities Exam: Normal Inspection. absent: Tenderness - Neurological Exam Neurological Exam: Alert, Awake - Skin Skin Exam: Dry, Warm Assessment and Plan (1) CKD stage 4 due to type 2 diabetes mellitus Status: Acute (2) Proteinuria due to type 2 diabetes mellitus Status: Acute (3) Pulmonary edema Status: Acute - Assessment and Plan (Free Text) Plan: Same diuretics monitor renal function, lytes closely
--- NOTE | 2017-07-11 13:28 | PN ---
DATE: LOCATION: ICU 12 SUBJECTIVE: This 77-year-old female seen and examined in rounds, appeared to be more awake, alert and oriented, on nasal cannula for oxygen supplementation. The patient tolerated some oral intake apparently given by the family as per the nursing statement. No reported choking and no nausea or vomiting. The entire chart is reviewed including, but not limited to the most recent lab and radiology study results, current and previous medication list, current and the previous medical events. Case discussed with the ICU staff at length. Today's lab showed white blood cells of 11.6 with normal hemoglobin and hematocrit with a BUN of 64. Creatinine is 1.8, blood glucose level 221, phosphorus 4.8 and mildly elevated AST to 42 with low albumin of 3.4. Yesterday chest x-ray report is seen with no acute infiltrate or pleural effusion - bilaterally. PHYSICAL EXAMINATION: GENERAL: A 77-year-old female. VITAL SIGNS: Afebrile with pulse of 124, respiratory rate 20 to 24 with a blood pressure of 126/66. HEENT: Showed pale dry oral mucous membranes. Nonicteric sclerae. LUNGS: Few scattered crepitation, decreased air entry at bases. HEART: Positive S1 and S2 with increased rate. ABDOMEN: Soft. Bowel sounds are present with slight generalized tenderness. No mass or organomegaly. No rebound tenderness or guarding. RECTAL: Deferred due to the patient's tachycardia. The patient . EXTREMITIES: Without significant clubbing or cyanosis, but mild edematous changes. NEUROLOGIC: No reported new neurological deficits, sensory or motor. IMPRESSION: 1. Malnutrition with hypoalbuminemia and mild dysphagia, improved clinically, the patient tolerated oral intake more than before. 2. Recent history of bilateral pneumonia with respiratory insufficiency, improving gradually. 3. Cardiac arrhythmia with atrial fibrillation. 4. Recent history of congestive heart failure with reported cardiomegaly, improved clinically. 5. Peptic ulcer disease by recent endoscopy. 6. Electrolyte imbalance with hyperphosphatemia. 7. Poorly-controlled diabetes mellitus. 8. Clinical septicemia, improving gradually, on antibiotics. SUGGESTIONS: 1. Continue current management. 2. Peripheral hyperalimentation. 3. Antireflux measures. 4. No need for aggressive GI workup in the meantime until the patient is more stable clinically. Diana Cazares MD cc: Diana Cazares MD [facility] # [id number]
--- NOTE | 2017-07-11 18:52 | CP.CCUPN ---
CCU Subjective - Physician Review Events Since Last Encounter (Free Text): 07/11/17 18:52 Patient is somewhat awake. Tachycardia noted. No distress. No fever. Cough noted Vital signs stable Chest good air entry regular heart sound nontender abdomen. We'll start the physical therapy. Continue the current treatment. Follow-up CCU Objective - Vital Signs / Intake & Output Vital Signs (Last 4 hours): Vital Signs Pulse Resp BP Pulse Ox 07/11/17 18:18 74 18 117/53 L 100 07/11/17 18:00 71 22 94 L 07/11/17 17:17 71 23 123/50 L 93 L 07/11/17 17:00 72 24 93 L 07/11/17 16:17 69 25 H 126/49 L 94 L 07/11/17 16:00 68 23 95 07/11/17 15:17 67 17 110/55 L 92 L 07/11/17 15:00 66 17 96 Intake and Output (Last 8hrs): Intake & Output 07/11/17 07/11/17 07/11/17 06:59 14:59 22:59 Intake Total 60 100 50 Output Total 300 210 120 Balance -240 -110 -70 Weight 139 lb Intake: Intake, IV Amount 0 Right Forearm 0 Oral 60 100 50 Output: Urine 300 210 120 Urethral (Neff) 300 210 120 Other: # Bowel Movements 1 - Physical Exam Head: Positive for: Atraumatic, Normocephalic Extroacular Muscles: Positive for: EOMI Mouth: Positive for: Moist Mucous Membranes Respiratory/Chest: Positive for: Clear to Auscultation. Negative for: Wheezes, Rales, Rhonchi Cardiovascular: Positive for: Normal S1, S2, Irregular Rhythm, Tachycardic. Negative for: Bradycardic Abdomen: Positive for: Distention, Normal Bowel Sounds. Negative for: Tenderness Upper Extremity: Positive for: Normal Inspection. Negative for: Edema Lower Extremity: Positive for: Normal Inspection. Negative for: Edema Skin: Positive for: Warm, Dry, Normal Color Psychiatric: Positive for: Alert, Lethargic - Medications Active Medications: Active Medications Generic Name Dose Route Start Last Admin Trade Name Freq PRN Reason Stop Dose Admin Acetaminophen 650 mg 07/11/17 02:28 07/11/17 02:35 Tylenol 650mg/20.3ml Solution Ud PO 650 mg Q6H PRN Administration for pain 4-6 Amiodarone HCl 200 mg 07/11/17 10:00 07/11/17 17:31 Cordarone PO 200 mg BID [facility] Administration Famotidine 20 mg 06/26/17 10:00 07/11/17 10:29 Pepcid IVP 20 mg DAILY [facility] Administration Ferric Sodium Gluconate Complex 125 mg 07/08/17 13:30 07/11/17 10:27 Ferrlecit IVPB 07/16/17 13:31 125 mg DAILY [facility] Administration Furosemide 40 mg 07/08/17 11:45 07/11/17 10:29 Lasix IVP Not Given DAILY [facility] Heparin Sodium (Porcine) 5,000 units 07/08/17 13:15 07/11/17 10:27 Heparin SC 5,000 units Q12 [facility] Administration Micafungin Sodium 100 mg/ 100 mls @ 100 mls/hr 07/04/17 20:00 07/10/17 19:43 Sodium Chloride IV 100 mls/hr Q24H [facility] Administration Insulin Glargine 8 unit 07/09/17 22:00 07/10/17 22:10 Lantus SC 8 units HS [facility] Administration Insulin Human Regular 0 unit 07/08/17 13:17 07/11/17 17:39 Novolin R SC 4 unit Q6 [facility] Administration Protocol Metoprolol Tartrate 25 mg 07/05/17 22:00 07/11/17 10:29 Lopressor PO Not Given Q12 [facility] Spironolactone 25 mg 07/08/17 13:15 07/11/17 10:28 Aldactone PO 25 mg DAILY [facility] Administration Vitamin A 1 ea 07/05/17 18:00 07/11/17 17:31 Vitamin A & D Oint Ud Foilpak TOP 1 ea BID [facility] Administration - Patient Studies Lab Studies: Lab Studies 07/11/17 07/11/17 07/11/17 Range/Units 17:38 11:22 06:12 WBC (4.8-10.8) K/uL RBC (3.80-5.20) Mil/uL Hgb (11.0-16.0) g/dL Hct (34.0-47.0) % MCV (81.0-99.0) fL MCH (27.0-31.0) pg MCHC (33.0-37.0) g/dL RDW (11.5-14.5) % Plt Count (130-400) K/uL MPV (7.2-11.7) fL Neut % (Auto) (50.0-75.0) % Lymph % (Auto) (20.0-40.0) % Traill % (Auto) (0.0-10.0) % Eos % (Auto) (0.0-4.0) % Baso % (Auto) (0.0-2.0) % Neut # (1.8-7.0) K/uL Lymph # (1.0-4.3) K/uL Traill # (0.0-0.8) K/uL Eos # (0.0-0.7) K/uL Baso # (0.0-0.2) K/uL Sodium 136 (132-148) mmol/L Potassium 4.8 (3.6-5.2) mmol/L Chloride 97 L (98-107) mmol/L Carbon Dioxide 22 (22-30) mmol/L Anion Gap 22 H (10-20) BUN 64 H (7-17) mg/dL Creatinine 1.8 H (0.7-1.2) MG/DL Est GFR ( Amer) 33 Est GFR (Non-Af Amer) 27 POC Glucose (mg/dL) 203 H 145 H (65-110) mg/dL Random Glucose 233 H (65-105) mg/dL Calcium 9.2 (8.6-10.4) mg/dl Phosphorus 4.8 H (2.5-4.5) mg/dL Magnesium 2.0 (1.6-2.3) mg/dL Total Bilirubin 0.8 (0.2-1.3) mg/dL AST 42 H (14-36) U/L ALT 47 (9-52) U/L Alkaline Phosphatase 114 (38-126) U/L Total Protein 7.6 (6.3-8.3) g/dL Albumin 3.4 L (3.5-5.0) g/dL Globulin 4.2 H (2.2-3.9) gm/dL Albumin/Globulin Ratio 0.8 L (1.0-2.1) 09/04/17 09/04/17 09/03/17 Range/Units 06:12 05:45 23:40 WBC 11.6 H (4.8-10.8) K/uL RBC 4.36 (3.80-5.20) Mil/uL Hgb 11.1 (11.0-16.0) g/dL Hct 36.4 (34.0-47.0) % MCV 83.6 (81.0-99.0) fL MCH 25.5 L (27.0-31.0) pg MCHC 30.5 L (33.0-37.0) g/dL RDW 19.0 H (11.5-14.5) % Plt Count 276 (130-400) K/uL MPV 10.8 (7.2-11.7) fL Neut % (Auto) 61.4 (50.0-75.0) % Lymph % (Auto) 30.2 (20.0-40.0) % Traill % (Auto) 6.9 (0.0-10.0) % Eos % (Auto) 0.9 (0.0-4.0) % Baso % (Auto) 0.6 (0.0-2.0) % Neut # 7.1 H (1.8-7.0) K/uL Lymph # 3.5 (1.0-4.3) K/uL Traill # 0.8 (0.0-0.8) K/uL Eos # 0.1 (0.0-0.7) K/uL Baso # 0.1 (0.0-0.2) K/uL Sodium (132-148) mmol/L Potassium (3.6-5.2) mmol/L Chloride (98-107) mmol/L Carbon Dioxide (22-30) mmol/L Anion Gap (10-20) BUN (7-17) mg/dL Creatinine (0.7-1.2) MG/DL Est GFR ( Amer) Est GFR (Non-Af Amer) POC Glucose (mg/dL) 221 H 227 H (65-110) mg/dL Random Glucose (65-105) mg/dL Calcium (8.6-10.4) mg/dl Phosphorus (2.5-4.5) mg/dL Magnesium (1.6-2.3) mg/dL Total Bilirubin (0.2-1.3) mg/dL AST (14-36) U/L ALT (9-52) U/L Alkaline Phosphatase (38-126) U/L Total Protein (6.3-8.3) g/dL Albumin (3.5-5.0) g/dL Globulin (2.2-3.9) gm/dL Albumin/Globulin Ratio (1.0-2.1) Laboratory Results - last 24 hr 07/10/17 07/11/17 07/11/17 23:40 05:45 06:12 WBC 11.6 H RBC 4.36 Hgb 11.1 Hct 36.4 MCV 83.6 MCH 25.5 L MCHC 30.5 L RDW 19.0 H Plt Count 276 MPV 10.8 Neut % (Auto) 61.4 Lymph % (Auto) 30.2 Traill % (Auto) 6.9 Eos % (Auto) 0.9 Baso % (Auto) 0.6 Neut # 7.1 H Lymph # 3.5 Traill # 0.8 Eos # 0.1 Baso # 0.1 Sodium Potassium Chloride Carbon Dioxide Anion Gap BUN Creatinine Est GFR ( Amer) Est GFR (Non-Af Amer) POC Glucose (mg/dL) 227 H 221 H Random Glucose Calcium Phosphorus Magnesium Total Bilirubin AST ALT Alkaline Phosphatase Total Protein Albumin Globulin Albumin/Globulin Ratio 07/11/17 07/11/17 07/11/17 06:12 11:22 17:38 WBC RBC Hgb Hct MCV MCH MCHC RDW Plt Count MPV Neut % (Auto) Lymph % (Auto) Traill % (Auto) Eos % (Auto) Baso % (Auto) Neut # Lymph # Traill # Eos # Baso # Sodium 136 Potassium 4.8 Chloride 97 L Carbon Dioxide 22 Anion Gap 22 H BUN 64 H Creatinine 1.8 H Est GFR ( Amer) 33 Est GFR (Non-Af Amer) 27 POC Glucose (mg/dL) 145 H 203 H Random Glucose 233 H Calcium 9.2 Phosphorus 4.8 H Magnesium 2.0 Total Bilirubin 0.8 AST 42 H ALT 47 Alkaline Phosphatase 114 Total Protein 7.6 Albumin 3.4 L Globulin 4.2 H Albumin/Globulin Ratio 0.8 L Fingerstick Blood Sugar Results: 208 Critical Care Progress Note - Nutrition Nutrition: Nutrition Category Date Time Status Pureed [Dysphagia/Modified Consistency Diet] [DIET] Diets 07/10/17 Dinner Active
--- NOTE | 2017-07-11 20:19 | CP.PCM.PN ---
Subjective - Date & Time of Evaluation Date of Evaluation: 07/11/17 Time of Evaluation: 16:15 - Subjective Subjective: Patient seen and evaluated Denies chest pain and dyspnea No cardiac events Objective - Vital Signs/Intake and Output Vital Signs (last 24 hours): Temp Pulse Resp BP Pulse Ox 97.1 F L 74 18 117/53 L 100 07/11/17 18:00 07/11/17 18:18 07/11/17 18:18 07/11/17 18:18 07/11/17 18:18 Intake and Output: 07/11/17 07/12/17 18:59 06:59 Intake Total 150 Output Total 330 Balance -180 - Medications Medications: Current Medications Acetaminophen (Tylenol 650mg/20.3ml Solution Ud) 650 mg PO Q6H PRN PRN Reason: for pain 4-6 Last Admin: 07/11/17 02:35 Dose: 650 mg Amiodarone HCl (Cordarone) 200 mg PO BID [facility] Last Admin: 07/11/17 17:31 Dose: 200 mg Famotidine (Pepcid) 20 mg IVP DAILY [facility] Last Admin: 07/11/17 10:29 Dose: 20 mg Ferric Sodium Gluconate Complex (Ferrlecit) 125 mg IVPB DAILY [facility] Stop: 07/16/17 13:31 Last Admin: 07/11/17 10:27 Dose: 125 mg Furosemide (Lasix) 40 mg IVP DAILY [facility] Last Admin: 07/11/17 10:29 Dose: Not Given Heparin Sodium (Porcine) (Heparin) 5,000 units SC Q12 [facility] Last Admin: 07/11/17 10:27 Dose: 5,000 units Micafungin Sodium 100 mg/ (Sodium Chloride) 100 mls @ 100 mls/hr IV Q24H [facility] Last Admin: 07/10/17 19:43 Dose: 100 mls/hr Insulin Glargine (Lantus) 8 unit SC HS [facility] Last Admin: 07/10/17 22:10 Dose: 8 units Insulin Human Regular (Novolin R) 0 unit SC Q6 [facility] PRN Reason: Protocol Last Admin: 07/11/17 17:39 Dose: 4 unit Metoprolol Tartrate (Lopressor) 25 mg PO Q12 [facility] Last Admin: 07/11/17 10:29 Dose: Not Given Spironolactone (Aldactone) 25 mg PO DAILY [facility] Last Admin: 07/11/17 10:28 Dose: 25 mg Vitamin A (Vitamin A & D Oint Ud Foilpak) 1 ea TOP BID [facility] Last Admin: 07/11/17 17:31 Dose: 1 ea - Labs Labs: 07/11/17 06:12 07/11/17 06:12 PT 14.1 SECONDS (9.7-12.2) H 07/02/17 07:13 INR 1.3 07/02/17 07:13 APTT 49 SECONDS (21-34) H 07/03/17 06:20 - Head Exam Head Exam: ATRAUMATIC, NORMAL INSPECTION - Eye Exam Eye Exam: EOMI, PERRL - ENT Exam ENT Exam: Mucous Membranes Moist - Respiratory Exam Respiratory Exam: Clear to Ausculation Bilateral, NORMAL BREATHING PATTERN - Cardiovascular Exam Cardiovascular Exam: REGULAR RHYTHM, +S1, +S2 - GI/Abdominal Exam GI & Abdominal Exam: Soft, Normal Bowel Sounds - Extremities Exam Extremities Exam: Full ROM - Neurological Exam Neurological Exam: Alert - Skin Skin Exam: Warm Assessment and Plan - Assessment and Plan (Free Text) Assessment: 1. CAD s/p Non STEMI 2. Paraxysmal A Fib not on anticoagulation due to GI bleeding 3. DM 2 4. CKD 5. S/P Respiratory failure 6. Ischemic CMP with systolic CHF 7. Severe MR For (RL) Cath tomorrow D/W Family at bedside Consent obtained from Son
[2017-07-11] MEDS: Micafungin 100 MG in Sodium Chloride 0.9% 100 ML IV SCH (21:43)
[2017-07-11] MEDS: (Lantus) Insulin Glargine, Recombinant SC SCH (21:48)
[2017-07-12 06:28] LABS: HEMATOCRIT 32.7 % (34.0-47.0); MEAN CELL VOLUME 83.6 fL (81.0-99.0); MEAN CORPUSCULAR HEMOGLOBIN 26.1 pg (27.0-31.0); MEAN CORPUSCULAR HGB CONC 31.2 g/dL (33.0-37.0); MEAN PLATELET VOLUME 11.1 fL (7.2-11.7); RED CELL DISTRIBUTION WIDTH 19.5 % (11.5-14.5); WHITE BLOOD COUNT 8.9 K/uL (4.8-10.8)
[2017-07-12] MEDS: (Novolin R) Insulin Human Regular 100 units/ml vial SC SCH ×4 (06:38→18:18)
[2017-07-12 06:48] LABS: INR 1.1
[2017-07-12 07:12] LABS: ALB/GLOB RATIO 0.9 (1.0-2.1); BILIRUBIN,TOTAL 0.7 mg/dL (0.2-1.3); CALCIUM 7.8 mg/dl (8.6-10.4); MAGNESIUM 1.8 mg/dL (1.6-2.3); PHOSPHOROUS 3.8 mg/dL (2.5-4.5); POTASSIUM 3.7 mmol/L (3.6-5.2); TOTAL PROTEIN 6.5 g/dL (6.3-8.3)
[2017-07-12] MEDS: Ferric Sodium Gluconat Complex 62.5 mg/5 ml Vial IVPB SCH (09:06)
[2017-07-12] MEDS: Vitamins A & D Oint UD Foilpak TOP SCH ×2 (09:19→17:28)
[2017-07-12] MEDS ORDERED: Midazolam 2 MG/2 ML VIAL ONE (13:09)
[2017-07-12] MEDS ORDERED: Iodixanol 320 MG/ML 100 ML BOTTLE IV ONE (13:10)
--- NOTE | 2017-07-12 13:14 | CP.PCM.PN ---
Subjective - Date & Time of Evaluation Date of Evaluation: 07/12/17 Time of Evaluation: 13:12 - Subjective Subjective: Being taken for cardiac cath comfortable, on O2NC family at bedside angela w/ mika uop Objective - Vital Signs/Intake and Output Vital Signs (last 24 hours): Temp Pulse Resp BP Pulse Ox 98.1 F 71 21 120/58 L 98 07/12/17 12:00 07/12/17 12:00 07/12/17 12:00 07/12/17 12:00 07/12/17 12:00 Intake and Output: 07/12/17 07/12/17 06:59 18:59 Intake Total 202 100 Output Total 270 30 Balance -68 70 - Medications Medications: Current Medications Acetaminophen (Tylenol 650mg/20.3ml Solution Ud) 650 mg PO Q6H PRN PRN Reason: for pain 4-6 Last Admin: 07/11/17 02:35 Dose: 650 mg Amiodarone HCl (Cordarone) 200 mg PO BID [facility] Last Admin: 07/12/17 09:07 Dose: 200 mg Famotidine (Pepcid) 20 mg IVP DAILY [facility] Last Admin: 07/12/17 09:16 Dose: 20 mg Ferric Sodium Gluconate Complex (Ferrlecit) 125 mg IVPB DAILY [facility] Stop: 07/16/17 13:31 Last Admin: 07/12/17 09:06 Dose: 125 mg Furosemide (Lasix) 40 mg IVP DAILY [facility] Last Admin: 07/12/17 09:01 Dose: 40 mg Heparin Sodium (Porcine) (Heparin) 5,000 units SC Q12 [facility] Last Admin: 07/12/17 09:01 Dose: 5,000 units Micafungin Sodium 100 mg/ (Sodium Chloride) 100 mls @ 100 mls/hr IV Q24H [facility] Last Admin: 07/11/17 21:43 Dose: 100 mls/hr Insulin Glargine (Lantus) 8 unit SC HS [facility] Last Admin: 07/11/17 21:48 Dose: 8 units Insulin Human Regular (Novolin R) 0 unit SC Q6 [facility] PRN Reason: Protocol Last Admin: 07/12/17 06:38 Dose: 2 unit Metoprolol Tartrate (Lopressor) 25 mg PO Q12 [facility] Last Admin: 07/12/17 09:07 Dose: 25 mg Spironolactone (Aldactone) 25 mg PO DAILY [facility] Last Admin: 07/12/17 09:06 Dose: 25 mg Vitamin A (Vitamin A & D Oint Ud Foilpak) 1 ea TOP BID [facility] Last Admin: 07/12/17 09:19 Dose: 1 ea - Labs Labs: 07/12/17 06:23 07/12/17 06:23 PT 12.2 SECONDS (9.7-12.2) 07/12/17 06:23 INR 1.1 07/12/17 06:23 APTT 30 SECONDS (21-34) 07/12/17 06:23 - Constitutional Appears: Non-toxic, No Acute Distress, Chronically Ill - Head Exam Head Exam: NORMAL INSPECTION - Eye Exam Eye Exam: Normal appearance - ENT Exam ENT Exam: Mucous Membranes Moist, Normal Exam - Neck Exam Neck Exam: Normal Inspection - Respiratory Exam Respiratory Exam: Decreased Breath Sounds, Rhonchi, NORMAL BREATHING PATTERN - Cardiovascular Exam Cardiovascular Exam: REGULAR RHYTHM, RRR - GI/Abdominal Exam GI & Abdominal Exam: Distended, Soft, Normal Bowel Sounds - Extremities Exam Extremities Exam: Normal Inspection Assessment and Plan (1) CKD (chronic kidney disease) Status: Acute (2) Acute respiratory failure with hypoxemia Status: Acute (3) Anemia Status: Acute (4) Elevated troponin Status: Acute (5) Acute renal failure Status: Acute - Assessment and Plan (Free Text) Assessment: ckd stable monitor renal function avoid nephrotoxic meds
--- NOTE | 2017-07-12 13:31 | CP.CCUPN ---
<Eb Iverson R - Last Filed: 07/12/17 17:24> CCU Subjective - Physician Review Subjective (Free Text): Patient was seen and examined at bedside in the morning. Patient extubated, tolerating nasal cannula. Alert, awake, no acute distress. Denies chest pain, shortness of breath, abdominal pain, headache, palpitations. n/v, d/c. Stated she was thirsty. 07/12/17 13:33 CCU Objective - Vital Signs / Intake & Output Vital Signs (Last 4 hours): Vital Signs Temp Pulse Resp BP Pulse Ox 07/12/17 12:00 98.1 F 71 21 120/58 L 98 07/12/17 11:00 68 20 128/63 99 07/12/17 10:00 66 19 129/65 98 Intake and Output (Last 8hrs): Intake & Output 07/11/17 07/12/17 07/12/17 22:59 06:59 14:59 Intake Total 200 52 100 Output Total 220 170 30 Balance -20 -118 70 Weight 132 lb 4.438 oz Intake: Intake, IV Amount 100 Right Forearm 100 Oral 100 50 100 Albumin 2 Output: Urine 220 170 30 Urethral (Miller) 220 170 30 - Physical Exam Head: Positive for: Atraumatic, Normocephalic Pupils: Positive for: PERRL Extroacular Muscles: Positive for: EOMI Mouth: Positive for: Moist Mucous Membranes Respiratory/Chest: Positive for: Clear to Auscultation. Negative for: Wheezes, Rales, Rhonchi Cardiovascular: Positive for: Normal S1, S2, Irregular Rhythm, Tachycardic. Negative for: Bradycardic Abdomen: Positive for: Distention, Normal Bowel Sounds. Negative for: Tenderness Upper Extremity: Positive for: Normal Inspection. Negative for: Edema Lower Extremity: Positive for: Normal Inspection. Negative for: Edema Skin: Positive for: Warm, Dry, Normal Color Psychiatric: Positive for: Alert, Lethargic - Medications Active Medications: Active Medications Generic Name Dose Route Start Last Admin Trade Name Freq PRN Reason Stop Dose Admin Acetaminophen 650 mg 07/11/17 02:28 07/11/17 02:35 Tylenol 650mg/20.3ml Solution Ud PO 650 mg Q6H PRN Administration for pain 4-6 Amiodarone HCl 200 mg 07/11/17 10:00 07/12/17 09:07 Cordarone PO 200 mg BID [facility] Administration Famotidine 20 mg 06/26/17 10:00 07/12/17 09:16 Pepcid IVP 20 mg DAILY [facility] Administration Ferric Sodium Gluconate Complex 125 mg 07/08/17 13:30 07/12/17 09:06 Ferrlecit IVPB 07/16/17 13:31 125 mg DAILY [facility] Administration Furosemide 40 mg 07/08/17 11:45 07/12/17 09:01 Lasix IVP 40 mg DAILY [facility] Administration Heparin Sodium (Porcine) 5,000 units 07/08/17 13:15 07/12/17 09:01 Heparin SC 5,000 units Q12 [facility] Administration Micafungin Sodium 100 mg/ 100 mls @ 100 mls/hr 07/04/17 20:00 07/11/17 21:43 Sodium Chloride IV 100 mls/hr Q24H [facility] Administration Insulin Glargine 8 unit 07/09/17 22:00 07/11/17 21:48 Lantus SC 8 units HS [facility] Administration Insulin Human Regular 0 unit 07/08/17 13:17 07/12/17 06:38 Novolin R SC 2 unit Q6 [facility] Administration Protocol Metoprolol Tartrate 25 mg 07/05/17 22:00 07/12/17 09:07 Lopressor PO 25 mg Q12 [facility] Administration Spironolactone 25 mg 07/08/17 13:15 07/12/17 09:06 Aldactone PO 25 mg DAILY [facility] Administration Vitamin A 1 ea 07/05/17 18:00 07/12/17 09:19 Vitamin A & D Oint Foilpak TOP 1 ea BID [facility] Administration - Patient Studies Lab Studies: Lab Studies 07/12/17 07/12/17 07/12/17 Range/Units 11:24 06:23 06:23 WBC (4.8-10.8) K/uL RBC (3.80-5.20) Mil/uL Hgb (11.0-16.0) g/dL Hct (34.0-47.0) % MCV (81.0-99.0) fL MCH (27.0-31.0) pg MCHC (33.0-37.0) g/dL RDW (11.5-14.5) % Plt Count (130-400) K/uL MPV (7.2-11.7) fL PT 12.2 (9.7-12.2) SECONDS INR 1.1 APTT 30 (21-34) SECONDS Sodium 138 (132-148) mmol/L Potassium 3.7 (3.6-5.2) mmol/L Chloride 101 (98-107) mmol/L Carbon Dioxide 24 (22-30) mmol/L Anion Gap 16 (10-20) BUN 68 H (7-17) mg/dL Creatinine 1.8 H (0.7-1.2) MG/DL Est GFR ( Amer) 33 Est GFR (Non-Af Amer) 27 POC Glucose (mg/dL) 171 H (65-110) mg/dL Random Glucose 129 H (65-105) mg/dL Calcium 7.8 L (8.6-10.4) mg/dl Phosphorus 3.8 (2.5-4.5) mg/dL Magnesium 1.8 (1.6-2.3) mg/dL Total Bilirubin 0.7 (0.2-1.3) mg/dL AST 43 H (14-36) U/L ALT 46 (9-52) U/L Alkaline Phosphatase 84 (38-126) U/L Total Protein 6.5 (6.3-8.3) g/dL Albumin 3.0 L (3.5-5.0) g/dL Globulin 3.5 (2.2-3.9) gm/dL Albumin/Globulin Ratio 0.9 L (1.0-2.1) 07/12/17 07/12/17 07/11/17 Range/Units 06:23 06:09 23:18 WBC 8.9 (4.8-10.8) K/uL RBC 3.91 (3.80-5.20) Mil/uL Hgb 10.2 L (11.0-16.0) g/dL Hct 32.7 L (34.0-47.0) % MCV 83.6 (81.0-99.0) fL MCH 26.1 L (27.0-31.0) pg MCHC 31.2 L (33.0-37.0) g/dL RDW 19.5 H (11.5-14.5) % Plt Count 258 (130-400) K/uL MPV 11.1 (7.2-11.7) fL PT (9.7-12.2) SECONDS INR APTT (21-34) SECONDS Sodium (132-148) mmol/L Potassium (3.6-5.2) mmol/L Chloride (98-107) mmol/L Carbon Dioxide (22-30) mmol/L Anion Gap (10-20) BUN (7-17) mg/dL Creatinine (0.7-1.2) MG/DL Est GFR ( Amer) Est GFR (Non-Af Amer) POC Glucose (mg/dL) 171 H 144 H (65-110) mg/dL Random Glucose (65-105) mg/dL Calcium (8.6-10.4) mg/dl Phosphorus (2.5-4.5) mg/dL Magnesium (1.6-2.3) mg/dL Total Bilirubin (0.2-1.3) mg/dL AST (14-36) U/L ALT (9-52) U/L Alkaline Phosphatase (38-126) U/L Total Protein (6.3-8.3) g/dL Albumin (3.5-5.0) g/dL Globulin (2.2-3.9) gm/dL Albumin/Globulin Ratio (1.0-2.1) 07/11/17 Range/Units 17:38 WBC (4.8-10.8) K/uL RBC (3.80-5.20) Mil/uL Hgb (11.0-16.0) g/dL Hct (34.0-47.0) % MCV (81.0-99.0) fL MCH (27.0-31.0) pg MCHC (33.0-37.0) g/dL RDW (11.5-14.5) % Plt Count (130-400) K/uL MPV (7.2-11.7) fL PT (9.7-12.2) SECONDS INR APTT (21-34) SECONDS Sodium (132-148) mmol/L Potassium (3.6-5.2) mmol/L Chloride (98-107) mmol/L Carbon Dioxide (22-30) mmol/L Anion Gap (10-20) BUN (7-17) mg/dL Creatinine (0.7-1.2) MG/DL Est GFR ( Amer) Est GFR (Non-Af Amer) POC Glucose (mg/dL) 203 H (65-110) mg/dL Random Glucose (65-105) mg/dL Calcium (8.6-10.4) mg/dl Phosphorus (2.5-4.5) mg/dL Magnesium (1.6-2.3) mg/dL Total Bilirubin (0.2-1.3) mg/dL AST (14-36) U/L ALT (9-52) U/L Alkaline Phosphatase (38-126) U/L Total Protein (6.3-8.3) g/dL Albumin (3.5-5.0) g/dL Globulin (2.2-3.9) gm/dL Albumin/Globulin Ratio (1.0-2.1) Laboratory Results - last 24 hr 07/11/17 07/11/17 07/12/17 17:38 23:18 06:09 WBC RBC Hgb Hct MCV MCH MCHC RDW Plt Count MPV PT INR APTT Sodium Potassium Chloride Carbon Dioxide Anion Gap BUN Creatinine Est GFR ( Amer) Est GFR (Non-Af Amer) POC Glucose (mg/dL) 203 H 144 H 171 H Random Glucose Calcium Phosphorus Magnesium Total Bilirubin AST ALT Alkaline Phosphatase Total Protein Albumin Globulin Albumin/Globulin Ratio 07/12/17 07/12/17 07/12/17 06:23 06:23 06:23 WBC 8.9 RBC 3.91 Hgb 10.2 L Hct 32.7 L MCV 83.6 MCH 26.1 L MCHC 31.2 L RDW 19.5 H Plt Count 258 MPV 11.1 PT 12.2 INR 1.1 APTT 30 Sodium 138 Potassium 3.7 Chloride 101 Carbon Dioxide 24 Anion Gap 16 BUN 68 H Creatinine 1.8 H Est GFR ( Amer) 33 Est GFR (Non-Af Amer) 27 POC Glucose (mg/dL) Random Glucose 129 H Calcium 7.8 L Phosphorus 3.8 Magnesium 1.8 Total Bilirubin 0.7 AST 43 H ALT 46 Alkaline Phosphatase 84 Total Protein 6.5 Albumin 3.0 L Globulin 3.5 Albumin/Globulin Ratio 0.9 L 07/12/17 11:24 WBC RBC Hgb Hct MCV MCH MCHC RDW Plt Count MPV PT INR APTT Sodium Potassium Chloride Carbon Dioxide Anion Gap BUN Creatinine Est GFR ( Amer) Est GFR (Non-Af Amer) POC Glucose (mg/dL) 171 H Random Glucose Calcium Phosphorus Magnesium Total Bilirubin AST ALT Alkaline Phosphatase Total Protein Albumin Globulin Albumin/Globulin Ratio Fingerstick Blood Sugar Results: 171 Review of Systems - Review of Systems Systems not reviewed;Unavailable: Intubated - Cardiovascular Cardiovascular: UNREMARKABLE - Respiratory Respiratory: UNREMARKABLE - Gastrointestinal Gastrointestinal: UNREMARKABLE - Genitourinary Genitourinary: UNREMARKABLE - Neurological Neurological: UNREMARKABLE Critical Care Progress Note - Nutrition Nutrition: Nutrition Category Date Time Status NPO Diet [DIET] Diets 07/12/17 Lunch Active Assessment/Plan - Assessment and Plan (Free Text) Assessment: 77 year old female with history of HTN, DM, CAD, presented initially c/o chest pain. Patient had NSTEMI with elevated troponins, new onset Afib. S/p respiratory failure. Neuro: alert and oriented Pulm: acute respiratory failure. diuresed well, chest CT shows minimal effusions, tolerating ps trials, extubated now on nasal cannula. CV: Ischemic CMP with systolic CHF; severe MR; paraxysmal AFib - Cardiac cath (RLHC) procedure today (07/12/17) - metoprolol, enalapril, lasix and spironolactone. - not on anticoagulation due to GI bleeding Hem: GI bleed with anemia s/p transfusion - H/H stable Renal: CKD, diuresing well. - miller with good urinary output Endo: DM type 2, lantus 8 units qhs, RISS for coverage q6h GI: no acute issues - ng discontinued, mechanically soft, frequent diet started - PUD, s/p endoscopy this admission ID: stopped all abx except for micafungin to cover yeast in urine, 5 days of treatment. DVT proph - heparin sq GI proph - pepcid miller for strict I/O's during acute illness Code status - full code <Paxton Conrad S - Last Filed: 07/12/17 17:49> CCU Objective - Vital Signs / Intake & Output Vital Signs (Last 4 hours): Vital Signs Temp Pulse Resp BP Pulse Ox 07/12/17 16:00 97.4 F L 63 19 123/53 L 99 07/12/17 15:00 97.4 F L 64 21 152/60 H 99 07/12/17 14:30 66 20 140/52 L 99 07/12/17 14:00 62 20 132/54 L 98 07/12/17 13:50 98 F 61 20 134/56 L 99 Intake and Output (Last 8hrs): Intake & Output 07/12/17 07/12/17 07/12/17 06:59 14:59 22:59 Intake Total 52 150 0 Output Total 170 30 Balance -118 120 0 Weight 132 lb 4.438 oz Intake: Intake, IV Amount 50 Right Forearm 50 Oral 50 100 0 Albumin 2 Output: Urine 170 30 Urethral (Miller) 170 30 - Medications Active Medications: Active Medications Generic Name Dose Route Start Last Admin Trade Name Freq PRN Reason Stop Dose Admin Acetaminophen 650 mg 07/11/17 02:28 07/11/17 02:35 Tylenol 650mg/20.3ml Solution Ud PO 650 mg Q6H PRN Administration for pain 4-6 Amiodarone HCl 200 mg 07/11/17 10:00 07/12/17 17:28 Cordarone PO 200 mg BID [facility] Administration Famotidine 20 mg 06/26/17 10:00 07/12/17 09:16 Pepcid IVP 20 mg DAILY [facility] Administration Ferric Sodium Gluconate Complex 125 mg 07/08/17 13:30 07/12/17 09:06 Ferrlecit IVPB 07/16/17 13:31 125 mg DAILY [facility] Administration Furosemide 40 mg 07/08/17 11:45 07/12/17 09:01 Lasix IVP 40 mg DAILY [facility] Administration Heparin Sodium (Porcine) 5,000 units 07/08/17 13:15 07/12/17 09:01 Heparin SC 5,000 units Q12 [facility] Administration Micafungin Sodium 100 mg/ 100 mls @ 100 mls/hr 07/04/17 20:00 07/11/17 21:43 Sodium Chloride IV 100 mls/hr Q24H [facility] Administration Insulin Glargine 8 unit 07/09/17 22:00 07/11/17 21:48 Lantus SC 8 units HS [facility] Administration Insulin Human Regular 0 unit 07/08/17 13:17 07/12/17 12:30 Novolin R SC Not Given Q6 [facility] Protocol Metoprolol Tartrate 25 mg 07/05/17 22:00 07/12/17 09:07 Lopressor PO 25 mg Q12 [facility] Administration Spironolactone 25 mg 07/08/17 13:15 07/12/17 09:06 Aldactone PO 25 mg DAILY [facility] Administration Vitamin A 1 ea 07/05/17 18:00 07/12/17 17:28 Vitamin A & D Oint Ud Foilpak TOP 1 ea BID [facility] Administration - Patient Studies Lab Studies: Lab Studies 07/12/17 07/12/17 07/12/17 Range/Units 11:24 06:23 06:23 WBC (4.8-10.8) K/uL RBC (3.80-5.20) Mil/uL Hgb (11.0-16.0) g/dL Hct (34.0-47.0) % MCV (81.0-99.0) fL MCH (27.0-31.0) pg MCHC (33.0-37.0) g/dL RDW (11.5-14.5) % Plt Count (130-400) K/uL MPV (7.2-11.7) fL PT 12.2 (9.7-12.2) SECONDS INR 1.1 APTT 30 (21-34) SECONDS Sodium 138 (132-148) mmol/L Potassium 3.7 (3.6-5.2) mmol/L Chloride 101 (98-107) mmol/L Carbon Dioxide 24 (22-30) mmol/L Anion Gap 16 (10-20) BUN 68 H (7-17) mg/dL Creatinine 1.8 H (0.7-1.2) MG/DL Est GFR ( Amer) 33 Est GFR (Non-Af Amer) 27 POC Glucose (mg/dL) 171 H (65-110) mg/dL Random Glucose 129 H (65-105) mg/dL Calcium 7.8 L (8.6-10.4) mg/dl Phosphorus 3.8 (2.5-4.5) mg/dL Magnesium 1.8 (1.6-2.3) mg/dL Total Bilirubin 0.7 (0.2-1.3) mg/dL AST 43 H (14-36) U/L ALT 46 (9-52) U/L Alkaline Phosphatase 84 (38-126) U/L Total Protein 6.5 (6.3-8.3) g/dL Albumin 3.0 L (3.5-5.0) g/dL Globulin 3.5 (2.2-3.9) gm/dL Albumin/Globulin Ratio 0.9 L (1.0-2.1) 07/12/17 07/12/17 07/11/17 Range/Units 06:23 06:09 23:18 WBC 8.9 (4.8-10.8) K/uL RBC 3.91 (3.80-5.20) Mil/uL Hgb 10.2 L (11.0-16.0) g/dL Hct 32.7 L (34.0-47.0) % MCV 83.6 (81.0-99.0) fL MCH 26.1 L (27.0-31.0) pg MCHC 31.2 L (33.0-37.0) g/dL RDW 19.5 H (11.5-14.5) % Plt Count 258 (130-400) K/uL MPV 11.1 (7.2-11.7) fL PT (9.7-12.2) SECONDS INR APTT (21-34) SECONDS Sodium (132-148) mmol/L Potassium (3.6-5.2) mmol/L Chloride (98-107) mmol/L Carbon Dioxide (22-30) mmol/L Anion Gap (10-20) BUN (7-17) mg/dL Creatinine (0.7-1.2) MG/DL Est GFR ( Amer) Est GFR (Non-Af Amer) POC Glucose (mg/dL) 171 H 144 H (65-110) mg/dL Random Glucose (65-105) mg/dL Calcium (8.6-10.4) mg/dl Phosphorus (2.5-4.5) mg/dL Magnesium (1.6-2.3) mg/dL Total Bilirubin (0.2-1.3) mg/dL AST (14-36) U/L ALT (9-52) U/L Alkaline Phosphatase (38-126) U/L Total Protein (6.3-8.3) g/dL Albumin (3.5-5.0) g/dL Globulin (2.2-3.9) gm/dL Albumin/Globulin Ratio (1.0-2.1) 07/11/17 Range/Units 17:38 WBC (4.8-10.8) K/uL RBC (3.80-5.20) Mil/uL Hgb (11.0-16.0) g/dL Hct (34.0-47.0) % MCV (81.0-99.0) fL MCH (27.0-31.0) pg MCHC (33.0-37.0) g/dL RDW (11.5-14.5) % Plt Count (130-400) K/uL MPV (7.2-11.7) fL PT (9.7-12.2) SECONDS INR APTT (21-34) SECONDS Sodium (132-148) mmol/L Potassium (3.6-5.2) mmol/L Chloride (98-107) mmol/L Carbon Dioxide (22-30) mmol/L Anion Gap (10-20) BUN (7-17) mg/dL Creatinine (0.7-1.2) MG/DL Est GFR ( Amer) Est GFR (Non-Af Amer) POC Glucose (mg/dL) 203 H (65-110) mg/dL Random Glucose (65-105) mg/dL Calcium (8.6-10.4) mg/dl Phosphorus (2.5-4.5) mg/dL Magnesium (1.6-2.3) mg/dL Total Bilirubin (0.2-1.3) mg/dL AST (14-36) U/L ALT (9-52) U/L Alkaline Phosphatase (38-126) U/L Total Protein (6.3-8.3) g/dL Albumin (3.5-5.0) g/dL Globulin (2.2-3.9) gm/dL Albumin/Globulin Ratio (1.0-2.1) Laboratory Results - last 24 hr 07/11/17 07/11/17 07/12/17 17:38 23:18 06:09 WBC RBC Hgb Hct MCV MCH MCHC RDW Plt Count MPV PT INR APTT Sodium Potassium Chloride Carbon Dioxide Anion Gap BUN Creatinine Est GFR ( Amer) Est GFR (Non-Af Amer) POC Glucose (mg/dL) 203 H 144 H 171 H Random Glucose Calcium Phosphorus Magnesium Total Bilirubin AST ALT Alkaline Phosphatase Total Protein Albumin Globulin Albumin/Globulin Ratio 07/12/17 07/12/17 07/12/17 06:23 06:23 06:23 WBC 8.9 RBC 3.91 Hgb 10.2 L Hct 32.7 L MCV 83.6 MCH 26.1 L MCHC 31.2 L RDW 19.5 H Plt Count 258 MPV 11.1 PT 12.2 INR 1.1 APTT 30 Sodium 138 Potassium 3.7 Chloride 101 Carbon Dioxide 24 Anion Gap 16 BUN 68 H Creatinine 1.8 H Est GFR ( Amer) 33 Est GFR (Non-Af Amer) 27 POC Glucose (mg/dL) Random Glucose 129 H Calcium 7.8 L Phosphorus 3.8 Magnesium 1.8 Total Bilirubin 0.7 AST 43 H ALT 46 Alkaline Phosphatase 84 Total Protein 6.5 Albumin 3.0 L Globulin 3.5 Albumin/Globulin Ratio 0.9 L 07/12/17 11:24 WBC RBC Hgb Hct MCV MCH MCHC RDW Plt Count MPV PT INR APTT Sodium Potassium Chloride Carbon Dioxide Anion Gap BUN Creatinine Est GFR ( Amer) Est GFR (Non-Af Amer) POC Glucose (mg/dL) 171 H Random Glucose Calcium Phosphorus Magnesium Total Bilirubin AST ALT Alkaline Phosphatase Total Protein Albumin Globulin Albumin/Globulin Ratio Critical Care Progress Note - Nutrition Nutrition: Nutrition Category Date Time Status NPO Diet [DIET] Diets 07/12/17 Lunch Active Assessment/Plan (1) Acute respiratory failure with hypoxemia Current Visit: Yes Status: Acute (2) Anemia Current Visit: Yes Status: Acute (3) Elevated troponin Current Visit: Yes Status: Acute Attending/Attestation - Attestation I have personally seen and examined this patient.: Yes I have fully participated in the care of the patient.: Yes I have reviewed all pertinent clinical information: Yes Notes (Text): 07/12/17 17:41 Patient seen and examined in the intensive care unit. Case discussed with house staff in the morning around. Status post cardiac cath with triple-vessel disease Continue medical management for now Case discussed with cardiology and family
--- NOTE | 2017-07-12 13:39 | PN ---
DATE: 07/12/2017 LOCATION: ICU 12. SUBJECTIVE: This 77-year-old female seen and examined in rounds with reported of agitation, restless with some confusion on and off, with episodes of diarrhea of loose stools, small amount. The patient is still incontinence also of urine with some poor oral intake. The entire chart is reviewed including, but not limited to the most recent lab and radiology study results, current and previous medication list, current and the previous medical events. Case discussed at length with the staff in the intensive care unit. Today's lab showed hemoglobin dropped to 10.2 with hematocrit of 32.7, but normal white blood cells and normal platelet count with BUN is 68, and creatinine is 1.8. Blood glucose level of 171 with AST of 43 with low albumin 3.0. Most recent chest x-ray done yesterday reporting the films are seen with possible patchy infiltrates, pneumonia and atelectasis. PHYSICAL EXAMINATION GENERAL: A 77-year-old female. VITAL SIGNS: Afebrile with pulse of 60, and respiratory rate of 22 to 24 with blood pressure of 134/66. HEENT: Showed dry oral mucous membrane. Nonicteric sclerae. LUNGS: Few scattered crepitation, decreased air entry at bases. HEART: Positive S1 and S2. ABDOMEN: Soft. Bowel sounds are present. No masses or organomegaly. No rebound tenderness or guarding. EXTREMITIES: Lower extremities edematous changes. No clubbing or cyanosis. NEUROLOGIC: No reported new neurological deficits, sensory or motor. VASCULAR: Peripheral pulses are present, but weak. The patient is to start on physical therapy and the neurology follow up, as well as cardiology follow up is requested. IMPRESSION: 1. Anemia to rule out gastrointestinal blood loss upper versus lower versus anemia secondary to chronic disease. 2. Malnutrition with hypoalbuminemia. 3. Pneumonia with respiratory insufficiency. 4. Dehydration with renal insufficiency. 5. Cardiac arrhythmia with atrial fibrillation. 6. Cardiomegaly with recently reported congestive heart failure, improving clinically. 7. Peptic ulcer disease. 8. Poorly controlled diabetes mellitus. 9. Clinical septicemia, improving. SUGGESTIONS: 1. Continue current management. 2. Peripheral hyperalimentation. 3. Complete stool workup for possible Clostridium difficile, if the patient does have bowel movement and diarrhea. 4. Flagyl IV. 5. Vancomycin p.o. 6. Further recommendation to follow. Diana Cazares MD [facility] # [id number]
--- NOTE | 2017-07-12 14:06 | CP.PCM.PN ---
Subjective - Date & Time of Evaluation Date of Evaluation: 07/12/17 Time of Evaluation: 14:02 - Subjective Subjective: Patient s/p Cath 1. L Main: Distal 40-50% 2. LAD: Mid 95%, Distal 85% lesions. D1 and D2 70-80% lesions 3. L Cx: Patent. OM1 99% stenosis 4. RCA: proximal 100%. Left to right collaterals 5. EF: 30%, EDP 24, No AV gradient Plan: CABG Vs. Multi vessel PCI GI work up prior to Caronary revascularization If Okay for GI please start ASA 81 po daily Objective - Vital Signs/Intake and Output Vital Signs (last 24 hours): Temp Pulse Resp BP Pulse Ox 98.1 F 71 21 120/58 L 98 07/12/17 12:00 07/12/17 12:00 07/12/17 12:00 07/12/17 12:00 07/12/17 12:00 Intake and Output: 07/12/17 07/12/17 06:59 18:59 Intake Total 202 100 Output Total 270 30 Balance -68 70 - Medications Medications: Current Medications Acetaminophen (Tylenol 650mg/20.3ml Solution Ud) 650 mg PO Q6H PRN PRN Reason: for pain 4-6 Last Admin: 07/11/17 02:35 Dose: 650 mg Amiodarone HCl (Cordarone) 200 mg PO BID [facility] Last Admin: 07/12/17 09:07 Dose: 200 mg Famotidine (Pepcid) 20 mg IVP DAILY [facility] Last Admin: 07/12/17 09:16 Dose: 20 mg Ferric Sodium Gluconate Complex (Ferrlecit) 125 mg IVPB DAILY [facility] Stop: 07/16/17 13:31 Last Admin: 07/12/17 09:06 Dose: 125 mg Furosemide (Lasix) 40 mg IVP DAILY [facility] Last Admin: 07/12/17 09:01 Dose: 40 mg Heparin Sodium (Porcine) (Heparin) 5,000 units SC Q12 [facility] Last Admin: 07/12/17 09:01 Dose: 5,000 units Micafungin Sodium 100 mg/ (Sodium Chloride) 100 mls @ 100 mls/hr IV Q24H [facility] Last Admin: 07/11/17 21:43 Dose: 100 mls/hr Insulin Glargine (Lantus) 8 unit SC HS [facility] Last Admin: 07/11/17 21:48 Dose: 8 units Insulin Human Regular (Novolin R) 0 unit SC Q6 [facility] PRN Reason: Protocol Last Admin: 07/12/17 12:30 Dose: Not Given Metoprolol Tartrate (Lopressor) 25 mg PO Q12 [facility] Last Admin: 07/12/17 09:07 Dose: 25 mg Spironolactone (Aldactone) 25 mg PO DAILY [facility] Last Admin: 07/12/17 09:06 Dose: 25 mg Vitamin A (Vitamin A & D Oint Ud Foilpak) 1 ea TOP BID [facility] Last Admin: 07/12/17 09:19 Dose: 1 ea - Labs Labs: 07/12/17 06:23 07/12/17 06:23 PT 12.2 SECONDS (9.7-12.2) 07/12/17 06:23 INR 1.1 07/12/17 06:23 APTT 30 SECONDS (21-34) 07/12/17 06:23
[2017-07-12] MEDS: Micafungin 100 MG in Sodium Chloride 0.9% 100 ML IV SCH (21:00)
[2017-07-12] MEDS: (Lantus) Insulin Glargine, Recombinant SC SCH (23:00)
[2017-07-13] MEDS: (Novolin R) Insulin Human Regular 100 units/ml vial SC SCH ×5 (00:13→21:16)
[2017-07-13 06:25] LABS: BASO # 0.1 K/uL (0.0-0.2); BASO % 0.7 % (0.0-2.0); EOS # 0.2 K/uL (0.0-0.7); EOS % 1.7 % (0.0-4.0); HEMATOCRIT 32.2 % (34.0-47.0); LYMPH # 2.8 K/uL (1.0-4.3); MEAN CELL VOLUME 82.8 fL (81.0-99.0); MEAN CORPUSCULAR HEMOGLOBIN 26.2 pg (27.0-31.0); MEAN CORPUSCULAR HGB CONC 31.7 g/dL (33.0-37.0); MEAN PLATELET VOLUME 11.2 fL (7.2-11.7); MONO # 0.9 K/uL (0.0-0.8); NRBC % 0.1 % (0.0-2.0); RED CELL DISTRIBUTION WIDTH 19.3 % (11.5-14.5)
[2017-07-13 06:53] LABS: BILIRUBIN,TOTAL 0.8 mg/dL (0.2-1.3); CALCIUM 8.9 mg/dl (8.6-10.4); PHOSPHOROUS 4.9 mg/dL (2.5-4.5); POTASSIUM 4.5 mmol/L (3.6-5.2); TOTAL PROTEIN 6.9 g/dL (6.3-8.3)
[2017-07-13] MEDS: Ferric Sodium Gluconat Complex 62.5 mg/5 ml Vial IVPB SCH (09:26)
[2017-07-13] MEDS: Vitamins A & D Oint UD Foilpak TOP SCH ×2 (10:46→17:23)
--- NOTE | 2017-07-13 13:10 | CP.CCUPN ---
<Eb Iverson Rasheed - Last Filed: 07/13/17 13:04> CCU Subjective - Physician Review Subjective (Free Text): Patient was seen and examined at bedside in the morning. Patient s/p extubation , tolerating nasal cannula. Alert, awake, no acute distress. Denies chest pain, shortness of breath, abdominal pain, headache, palpitations. n/v, d/c. 07/13/17 13:05 CCU Objective - Vital Signs / Intake & Output Vital Signs (Last 4 hours): Vital Signs Temp Pulse Resp BP Pulse Ox 07/13/17 12:28 73 23 126/66 99 07/13/17 12:00 98.1 F 70 29 H 97 07/13/17 11:00 69 25 H 100 07/13/17 10:49 74 20 117/64 07/13/17 10:47 131/54 L 07/13/17 10:17 69 28 H 131/54 L 99 07/13/17 10:00 73 28 H 100 07/13/17 09:30 90/37 L 07/13/17 09:18 74 17 90/37 L 99 Intake and Output (Last 8hrs): Intake & Output 07/12/17 07/13/17 07/13/17 22:59 06:59 14:59 Intake Total 220 30 350 Output Total 380 215 380 Balance -160 -185 -30 Weight 126 lb 8.725 oz Intake: Oral 220 30 350 Output: Urine 380 215 380 Urethral (Miller) 380 215 380 Stool 0 0 - Physical Exam Head: Positive for: Atraumatic, Normocephalic Pupils: Positive for: PERRL Extroacular Muscles: Positive for: EOMI Mouth: Positive for: Moist Mucous Membranes Respiratory/Chest: Positive for: Clear to Auscultation. Negative for: Wheezes, Rales, Rhonchi Cardiovascular: Positive for: Normal S1, S2, Irregular Rhythm, Tachycardic. Negative for: Bradycardic Abdomen: Positive for: Distention, Normal Bowel Sounds. Negative for: Tenderness Upper Extremity: Positive for: Normal Inspection. Negative for: Edema Lower Extremity: Positive for: Normal Inspection. Negative for: Edema Skin: Positive for: Warm, Dry, Normal Color Psychiatric: Positive for: Alert, Lethargic - Medications Active Medications: Active Medications Generic Name Dose Route Start Last Admin Trade Name Freq PRN Reason Stop Dose Admin Acetaminophen 650 mg 07/11/17 02:28 07/11/17 02:35 Tylenol 650mg/20.3ml Solution Ud PO 650 mg Q6H PRN Administration for pain 4-6 Amiodarone HCl 200 mg 07/11/17 10:00 07/13/17 10:46 Cordarone PO 200 mg BID ASIM Administration Famotidine 20 mg 06/26/17 10:00 07/13/17 10:43 Pepcid IVP 20 mg DAILY ASIM Administration Ferric Sodium Gluconate Complex 125 mg 07/08/17 13:30 07/13/17 09:26 Ferrlecit IVPB 07/16/17 13:31 125 mg DAILY ASIM Administration Furosemide 40 mg 07/08/17 11:45 07/13/17 10:47 Lasix IVP 40 mg DAILY ASIM Administration Heparin Sodium (Porcine) 5,000 units 07/08/17 13:15 07/13/17 09:29 Heparin SC 5,000 units Q12 ASIM Administration Micafungin Sodium 100 mg/ 100 mls @ 100 mls/hr 07/04/17 20:00 07/12/17 21:00 Sodium Chloride IV 100 mls/hr Q24H ASIM Administration Insulin Glargine 8 unit 07/09/17 22:00 07/12/17 23:00 Lantus SC 8 units HS ASIM Administration Insulin Human Regular 0 unit 07/08/17 13:17 07/13/17 12:23 Novolin R SC 4 unit Q6 ASIM Administration Protocol Metoprolol Tartrate 25 mg 07/05/17 22:00 07/13/17 09:30 Lopressor PO Not Given Q12 ASIM Spironolactone 25 mg 07/08/17 13:15 07/13/17 10:47 Aldactone PO 25 mg DAILY ASIM Administration Vitamin A 1 ea 07/05/17 18:00 07/13/17 10:46 Vitamin A & D Oint Ud Foilpak TOP 1 ea BID ASIM Administration - Patient Studies Lab Studies: Lab Studies 07/13/17 07/13/17 07/13/17 Range/Units 11:54 06:14 06:14 WBC 10.0 (4.8-10.8) K/uL RBC 3.89 (3.80-5.20) Mil/uL Hgb 10.2 L (11.0-16.0) g/dL Hct 32.2 L (34.0-47.0) % MCV 82.8 (81.0-99.0) fL MCH 26.2 L (27.0-31.0) pg MCHC 31.7 L (33.0-37.0) g/dL RDW 19.3 H (11.5-14.5) % Plt Count 313 (130-400) K/uL MPV 11.2 (7.2-11.7) fL Neut % (Auto) 60.6 (50.0-75.0) % Lymph % (Auto) 28.0 (20.0-40.0) % [place] % (Auto) 9.0 (0.0-10.0) % Eos % (Auto) 1.7 (0.0-4.0) % Baso % (Auto) 0.7 (0.0-2.0) % Neut # 6.1 (1.8-7.0) K/uL Lymph # 2.8 (1.0-4.3) K/uL [place] # 0.9 H (0.0-0.8) K/uL Eos # 0.2 (0.0-0.7) K/uL Baso # 0.1 (0.0-0.2) K/uL Sodium 132 (132-148) mmol/L Potassium 4.5 (3.6-5.2) mmol/L Chloride 99 (98-107) mmol/L Carbon Dioxide 24 (22-30) mmol/L Anion Gap 14 (10-20) BUN 69 H (7-17) mg/dL Creatinine 1.9 H (0.7-1.2) MG/DL Est GFR ( Amer) 31 Est GFR (Non-Af Amer) 26 POC Glucose (mg/dL) 228 H (65-110) mg/dL Random Glucose 131 H (65-105) mg/dL Calcium 8.9 (8.6-10.4) mg/dl Phosphorus 4.9 H (2.5-4.5) mg/dL Magnesium 2.0 (1.6-2.3) mg/dL Total Bilirubin 0.8 (0.2-1.3) mg/dL AST 44 H (14-36) U/L ALT 51 (9-52) U/L Alkaline Phosphatase 94 (38-126) U/L Total Protein 6.9 (6.3-8.3) g/dL Albumin 3.4 L (3.5-5.0) g/dL Globulin 3.5 (2.2-3.9) gm/dL Albumin/Globulin Ratio 1.0 (1.0-2.1) 07/13/17 07/13/17 07/12/17 Range/Units 05:55 00:00 17:50 WBC (4.8-10.8) K/uL RBC (3.80-5.20) Mil/uL Hgb (11.0-16.0) g/dL Hct (34.0-47.0) % MCV (81.0-99.0) fL MCH (27.0-31.0) pg MCHC (33.0-37.0) g/dL RDW (11.5-14.5) % Plt Count (130-400) K/uL MPV (7.2-11.7) fL Neut % (Auto) (50.0-75.0) % Lymph % (Auto) (20.0-40.0) % [place] % (Auto) (0.0-10.0) % Eos % (Auto) (0.0-4.0) % Baso % (Auto) (0.0-2.0) % Neut # (1.8-7.0) K/uL Lymph # (1.0-4.3) K/uL [place] # (0.0-0.8) K/uL Eos # (0.0-0.7) K/uL Baso # (0.0-0.2) K/uL Sodium (132-148) mmol/L Potassium (3.6-5.2) mmol/L Chloride (98-107) mmol/L Carbon Dioxide (22-30) mmol/L Anion Gap (10-20) BUN (7-17) mg/dL Creatinine (0.7-1.2) MG/DL Est GFR ( Amer) Est GFR (Non-Af Amer) POC Glucose (mg/dL) 158 H 176 H 183 H (65-110) mg/dL Random Glucose (65-105) mg/dL Calcium (8.6-10.4) mg/dl Phosphorus (2.5-4.5) mg/dL Magnesium (1.6-2.3) mg/dL Total Bilirubin (0.2-1.3) mg/dL AST (14-36) U/L ALT (9-52) U/L Alkaline Phosphatase (38-126) U/L Total Protein (6.3-8.3) g/dL Albumin (3.5-5.0) g/dL Globulin (2.2-3.9) gm/dL Albumin/Globulin Ratio (1.0-2.1) Laboratory Results - last 24 hr 07/12/17 07/13/17 07/13/17 17:50 00:00 05:55 WBC RBC Hgb Hct MCV MCH MCHC RDW Plt Count MPV Neut % (Auto) Lymph % (Auto) [place] % (Auto) Eos % (Auto) Baso % (Auto) Neut # Lymph # [place] # Eos # Baso # Sodium Potassium Chloride Carbon Dioxide Anion Gap BUN Creatinine Est GFR ( Amer) Est GFR (Non-Af Amer) POC Glucose (mg/dL) 183 H 176 H 158 H Random Glucose Calcium Phosphorus Magnesium Total Bilirubin AST ALT Alkaline Phosphatase Total Protein Albumin Globulin Albumin/Globulin Ratio 07/13/17 07/13/17 07/13/17 06:14 06:14 11:54 WBC 10.0 RBC 3.89 Hgb 10.2 L Hct 32.2 L MCV 82.8 MCH 26.2 L MCHC 31.7 L RDW 19.3 H Plt Count 313 MPV 11.2 Neut % (Auto) 60.6 Lymph % (Auto) 28.0 [place] % (Auto) 9.0 Eos % (Auto) 1.7 Baso % (Auto) 0.7 Neut # 6.1 Lymph # 2.8 [place] # 0.9 H Eos # 0.2 Baso # 0.1 Sodium 132 Potassium 4.5 Chloride 99 Carbon Dioxide 24 Anion Gap 14 BUN 69 H Creatinine 1.9 H Est GFR ( Amer) 31 Est GFR (Non-Af Amer) 26 POC Glucose (mg/dL) 228 H Random Glucose 131 H Calcium 8.9 Phosphorus 4.9 H Magnesium 2.0 Total Bilirubin 0.8 AST 44 H ALT 51 Alkaline Phosphatase 94 Total Protein 6.9 Albumin 3.4 L Globulin 3.5 Albumin/Globulin Ratio 1.0 Fingerstick Blood Sugar Results: 228 Review of Systems - Constitutional Constitutional: absent: Fever, Chills, Sweats - Cardiovascular Cardiovascular: absent: Chest Pain - Respiratory Respiratory: absent: Cough, Dyspnea - Gastrointestinal Gastrointestinal: absent: Abdominal Pain, Diarrhea - Genitourinary Genitourinary: absent: Dysuria - Neurological Neurological: absent: Dizziness, Headaches Critical Care Progress Note - Nutrition Nutrition: Nutrition Category Date Time Status Dysphagia/Modified Consistency Diet [DIET] Diets 07/13/17 Breakfast Active Assessment/Plan - Assessment and Plan (Free Text) Assessment: 77 year old female with history of HTN, DM, CAD, presented initially c/o chest pain. Patient had NSTEMI with elevated troponins, new onset Afib. S/p respiratory failure. CV: Ischemic CMP with systolic CHF; severe MR; paraxysmal AFib - s/p cardiac cath (RLHC) procedure (07/12/17) showing multi-vessel occlusion -> plan is CABG vs multi-vessel PCI - metoprolol, enalapril, lasix and spironolactone. - not on anticoagulation due to GI bleeding GI: no acute issues - ng discontinued, mechanically soft, frequent diet started - PUD, s/p endoscopy this admission Hem: GI bleed with anemia s/p transfusion - H/H stable Neuro: alert and oriented Pulm: acute respiratory failure. diuresed well, chest CT shows minimal effusions, tolerating ps trials, extubated now on nasal cannula. Renal: CKD, diuresing well. - miller with good urinary output Endo: DM type 2, lantus 8 units qhs, RISS for coverage q6h ID: stopped all abx except for micafungin to cover yeast in urine, 5 days of treatment. DVT proph - heparin sq GI proph - pepcid miller for strict I/O's during acute illness Code status - full code <Paxton Conrad S - Last Filed: 07/13/17 17:56> CCU Objective - Vital Signs / Intake & Output Vital Signs (Last 4 hours): Vital Signs Temp Pulse Resp BP Pulse Ox 07/13/17 16:00 97.5 F L 07/13/17 15:28 72 27 H 108/52 L 99 07/13/17 15:00 70 20 100 09/06/17 14:28 73 17 106/50 L 99 07/13/17 14:00 74 18 100 Intake and Output (Last 8hrs): Intake & Output 07/13/17 07/13/17 07/13/17 06:59 14:59 22:59 Intake Total 30 450 0 Output Total 215 380 0 Balance -185 70 0 Weight 126 lb 8.725 oz Intake: Oral 30 450 0 Output: Urine 215 380 0 Urethral (Miller) 215 380 Urine, Voided 0 0 Stool 0 0 - Medications Active Medications: Active Medications Generic Name Dose Route Start Last Admin Trade Name Freq PRN Reason Stop Dose Admin Acetaminophen 650 mg 07/11/17 02:28 07/11/17 02:35 Tylenol 650mg/20.3ml Solution Ud PO 650 mg Q6H PRN Administration for pain 4-6 Amiodarone HCl 200 mg 07/11/17 10:00 07/13/17 17:23 Cordarone PO 200 mg BID ASIM Administration Famotidine 20 mg 06/26/17 10:00 07/13/17 10:43 Pepcid IVP 20 mg DAILY ASIM Administration Ferric Sodium Gluconate Complex 125 mg 07/08/17 13:30 07/13/17 09:26 Ferrlecit IVPB 07/16/17 13:31 125 mg DAILY ASIM Administration Furosemide 40 mg 07/08/17 11:45 07/13/17 10:47 Lasix IVP 40 mg DAILY ASIM Administration Heparin Sodium (Porcine) 5,000 units 07/08/17 13:15 07/13/17 09:29 Heparin SC 5,000 units Q12 ASIM Administration Micafungin Sodium 100 mg/ 100 mls @ 100 mls/hr 07/04/17 20:00 07/12/17 21:00 Sodium Chloride IV 100 mls/hr Q24H ASIM Administration Insulin Glargine 8 unit 07/09/17 22:00 07/12/17 23:00 Lantus SC 8 units HS ASIM Administration Insulin Human Regular 0 unit 07/13/17 16:30 07/13/17 17:22 Novolin R SC 2 unit ACHS ASIM Administration Protocol Metoprolol Tartrate 25 mg 07/05/17 22:00 07/13/17 09:30 Lopressor PO Not Given Q12 ASIM Spironolactone 25 mg 07/08/17 13:15 07/13/17 10:47 Aldactone PO 25 mg DAILY ASIM Administration Vitamin A 1 ea 07/05/17 18:00 07/13/17 17:23 Vitamin A & D Oint Ud Foilpak TOP 1 ea BID ASIM Administration - Patient Studies Lab Studies: Lab Studies 07/13/17 07/13/17 07/13/17 Range/Units 16:50 11:54 06:14 WBC (4.8-10.8) K/uL RBC (3.80-5.20) Mil/uL Hgb (11.0-16.0) g/dL Hct (34.0-47.0) % MCV (81.0-99.0) fL MCH (27.0-31.0) pg MCHC (33.0-37.0) g/dL RDW (11.5-14.5) % Plt Count (130-400) K/uL MPV (7.2-11.7) fL Neut % (Auto) (50.0-75.0) % Lymph % (Auto) (20.0-40.0) % [place] % (Auto) (0.0-10.0) % Eos % (Auto) (0.0-4.0) % Baso % (Auto) (0.0-2.0) % Neut # (1.8-7.0) K/uL Lymph # (1.0-4.3) K/uL [place] # (0.0-0.8) K/uL Eos # (0.0-0.7) K/uL Baso # (0.0-0.2) K/uL Sodium 132 (132-148) mmol/L Potassium 4.5 (3.6-5.2) mmol/L Chloride 99 (98-107) mmol/L Carbon Dioxide 24 (22-30) mmol/L Anion Gap 14 (10-20) BUN 69 H (7-17) mg/dL Creatinine 1.9 H (0.7-1.2) MG/DL Est GFR ( Amer) 31 Est GFR (Non-Af Amer) 26 POC Glucose (mg/dL) 176 H 228 H (65-110) mg/dL Random Glucose 131 H (65-105) mg/dL Calcium 8.9 (8.6-10.4) mg/dl Phosphorus 4.9 H (2.5-4.5) mg/dL Magnesium 2.0 (1.6-2.3) mg/dL Total Bilirubin 0.8 (0.2-1.3) mg/dL AST 44 H (14-36) U/L ALT 51 (9-52) U/L Alkaline Phosphatase 94 (38-126) U/L Total Protein 6.9 (6.3-8.3) g/dL Albumin 3.4 L (3.5-5.0) g/dL Globulin 3.5 (2.2-3.9) gm/dL Albumin/Globulin Ratio 1.0 (1.0-2.1) 07/13/17 07/13/17 07/13/17 Range/Units 06:14 05:55 00:00 WBC 10.0 (4.8-10.8) K/uL RBC 3.89 (3.80-5.20) Mil/uL Hgb 10.2 L (11.0-16.0) g/dL Hct 32.2 L (34.0-47.0) % MCV 82.8 (81.0-99.0) fL MCH 26.2 L (27.0-31.0) pg MCHC 31.7 L (33.0-37.0) g/dL RDW 19.3 H (11.5-14.5) % Plt Count 313 (130-400) K/uL MPV 11.2 (7.2-11.7) fL Neut % (Auto) 60.6 (50.0-75.0) % Lymph % (Auto) 28.0 (20.0-40.0) % [place] % (Auto) 9.0 (0.0-10.0) % Eos % (Auto) 1.7 (0.0-4.0) % Baso % (Auto) 0.7 (0.0-2.0) % Neut # 6.1 (1.8-7.0) K/uL Lymph # 2.8 (1.0-4.3) K/uL [place] # 0.9 H (0.0-0.8) K/uL Eos # 0.2 (0.0-0.7) K/uL Baso # 0.1 (0.0-0.2) K/uL Sodium (132-148) mmol/L Potassium (3.6-5.2) mmol/L Chloride (98-107) mmol/L Carbon Dioxide (22-30) mmol/L Anion Gap (10-20) BUN (7-17) mg/dL Creatinine (0.7-1.2) MG/DL Est GFR ( Amer) Est GFR (Non-Af Amer) POC Glucose (mg/dL) 158 H 176 H (65-110) mg/dL Random Glucose (65-105) mg/dL Calcium (8.6-10.4) mg/dl Phosphorus (2.5-4.5) mg/dL Magnesium (1.6-2.3) mg/dL Total Bilirubin (0.2-1.3) mg/dL AST (14-36) U/L ALT (9-52) U/L Alkaline Phosphatase (38-126) U/L Total Protein (6.3-8.3) g/dL Albumin (3.5-5.0) g/dL Globulin (2.2-3.9) gm/dL Albumin/Globulin Ratio (1.0-2.1) 07/12/17 Range/Units 17:50 WBC (4.8-10.8) K/uL RBC (3.80-5.20) Mil/uL Hgb (11.0-16.0) g/dL Hct (34.0-47.0) % MCV (81.0-99.0) fL MCH (27.0-31.0) pg MCHC (33.0-37.0) g/dL RDW (11.5-14.5) % Plt Count (130-400) K/uL MPV (7.2-11.7) fL Neut % (Auto) (50.0-75.0) % Lymph % (Auto) (20.0-40.0) % [place] % (Auto) (0.0-10.0) % Eos % (Auto) (0.0-4.0) % Baso % (Auto) (0.0-2.0) % Neut # (1.8-7.0) K/uL Lymph # (1.0-4.3) K/uL [place] # (0.0-0.8) K/uL Eos # (0.0-0.7) K/uL Baso # (0.0-0.2) K/uL Sodium (132-148) mmol/L Potassium (3.6-5.2) mmol/L Chloride (98-107) mmol/L Carbon Dioxide (22-30) mmol/L Anion Gap (10-20) BUN (7-17) mg/dL Creatinine (0.7-1.2) MG/DL Est GFR ( Amer) Est GFR (Non-Af Amer) POC Glucose (mg/dL) 183 H (65-110) mg/dL Random Glucose (65-105) mg/dL Calcium (8.6-10.4) mg/dl Phosphorus (2.5-4.5) mg/dL Magnesium (1.6-2.3) mg/dL Total Bilirubin (0.2-1.3) mg/dL AST (14-36) U/L ALT (9-52) U/L Alkaline Phosphatase (38-126) U/L Total Protein (6.3-8.3) g/dL Albumin (3.5-5.0) g/dL Globulin (2.2-3.9) gm/dL Albumin/Globulin Ratio (1.0-2.1) Laboratory Results - last 24 hr 07/12/17 07/13/17 07/13/17 17:50 00:00 05:55 WBC RBC Hgb Hct MCV MCH MCHC RDW Plt Count MPV Neut % (Auto) Lymph % (Auto) [place] % (Auto) Eos % (Auto) Baso % (Auto) Neut # Lymph # [place] # Eos # Baso # Sodium Potassium Chloride Carbon Dioxide Anion Gap BUN Creatinine Est GFR ( Amer) Est GFR (Non-Af Amer) POC Glucose (mg/dL) 183 H 176 H 158 H Random Glucose Calcium Phosphorus Magnesium Total Bilirubin AST ALT Alkaline Phosphatase Total Protein Albumin Globulin Albumin/Globulin Ratio 07/13/17 07/13/17 07/13/17 06:14 06:14 11:54 WBC 10.0 RBC 3.89 Hgb 10.2 L Hct 32.2 L MCV 82.8 MCH 26.2 L MCHC 31.7 L RDW 19.3 H Plt Count 313 MPV 11.2 Neut % (Auto) 60.6 Lymph % (Auto) 28.0 [place] % (Auto) 9.0 Eos % (Auto) 1.7 Baso % (Auto) 0.7 Neut # 6.1 Lymph # 2.8 [place] # 0.9 H Eos # 0.2 Baso # 0.1 Sodium 132 Potassium 4.5 Chloride 99 Carbon Dioxide 24 Anion Gap 14 BUN 69 H Creatinine 1.9 H Est GFR ( Amer) 31 Est GFR (Non-Af Amer) 26 POC Glucose (mg/dL) 228 H Random Glucose 131 H Calcium 8.9 Phosphorus 4.9 H Magnesium 2.0 Total Bilirubin 0.8 AST 44 H ALT 51 Alkaline Phosphatase 94 Total Protein 6.9 Albumin 3.4 L Globulin 3.5 Albumin/Globulin Ratio 1.0 07/13/17 16:50 WBC RBC Hgb Hct MCV MCH MCHC RDW Plt Count MPV Neut % (Auto) Lymph % (Auto) [place] % (Auto) Eos % (Auto) Baso % (Auto) Neut # Lymph # [place] # Eos # Baso # Sodium Potassium Chloride Carbon Dioxide Anion Gap BUN Creatinine Est GFR ( Amer) Est GFR (Non-Af Amer) POC Glucose (mg/dL) 176 H Random Glucose Calcium Phosphorus Magnesium Total Bilirubin AST ALT Alkaline Phosphatase Total Protein Albumin Globulin Albumin/Globulin Ratio Critical Care Progress Note - Nutrition Nutrition: Nutrition Category Date Time Status Dysphagia/Modified Consistency Diet [DIET] Diets 07/13/17 Breakfast Active Assessment/Plan (1) Acute respiratory failure with hypoxemia Current Visit: Yes Status: Acute (2) Anemia Current Visit: Yes Status: Acute (3) Elevated troponin Current Visit: Yes Status: Acute Attending/Attestation - Attestation I have personally seen and examined this patient.: Yes I have fully participated in the care of the patient.: Yes I have reviewed all pertinent clinical information: Yes Notes (Text): 07/13/17 17:55 Patient seen and examined in the intensive care unit. Case discussed with house staff in the morning rounds. Stable for transfer to telemetry Continue present management Case discussed with cardiology
--- NOTE | 2017-07-13 13:55 | CP.PCM.PN ---
Subjective - Date & Time of Evaluation Date of Evaluation: 07/13/17 Time of Evaluation: 13:53 - Subjective Subjective: s/p cardiac cath Awake; BP controlled Creat remains about same post cath no new complaints Objective - Vital Signs/Intake and Output Vital Signs (last 24 hours): Temp Pulse Resp BP Pulse Ox 98.1 F 73 23 126/66 99 07/13/17 12:00 07/13/17 12:28 07/13/17 12:28 07/13/17 12:28 07/13/17 12:28 Intake and Output: 07/13/17 07/13/17 06:59 18:59 Intake Total 100 350 Output Total 295 380 Balance -195 -30 - Medications Medications: Current Medications Acetaminophen (Tylenol 650mg/20.3ml Solution Ud) 650 mg PO Q6H PRN PRN Reason: for pain 4-6 Last Admin: 07/11/17 02:35 Dose: 650 mg Amiodarone HCl (Cordarone) 200 mg PO BID [facility] Last Admin: 07/13/17 10:46 Dose: 200 mg Famotidine (Pepcid) 20 mg IVP DAILY [facility] Last Admin: 07/13/17 10:43 Dose: 20 mg Ferric Sodium Gluconate Complex (Ferrlecit) 125 mg IVPB DAILY [facility] Stop: 07/16/17 13:31 Last Admin: 07/13/17 09:26 Dose: 125 mg Furosemide (Lasix) 40 mg IVP DAILY [facility] Last Admin: 07/13/17 10:47 Dose: 40 mg Heparin Sodium (Porcine) (Heparin) 5,000 units SC Q12 [facility] Last Admin: 07/13/17 09:29 Dose: 5,000 units Micafungin Sodium 100 mg/ (Sodium Chloride) 100 mls @ 100 mls/hr IV Q24H [facility] Last Admin: 07/12/17 21:00 Dose: 100 mls/hr Insulin Glargine (Lantus) 8 unit SC HS [facility] Last Admin: 07/12/17 23:00 Dose: 8 units Insulin Human Regular (Novolin R) 0 unit SC Q6 ASIM PRN Reason: Protocol Last Admin: 07/13/17 12:23 Dose: 4 unit Metoprolol Tartrate (Lopressor) 25 mg PO Q12 [facility] Last Admin: 07/13/17 09:30 Dose: Not Given Spironolactone (Aldactone) 25 mg PO DAILY [facility] Last Admin: 07/13/17 10:47 Dose: 25 mg Vitamin A (Vitamin A & D Oint Ud Foilpak) 1 ea TOP BID [facility] Last Admin: 07/13/17 10:46 Dose: 1 ea - Labs Labs: 07/13/17 06:14 07/13/17 06:14 PT 12.2 SECONDS (9.7-12.2) 07/12/17 06:23 INR 1.1 07/12/17 06:23 APTT 30 SECONDS (21-34) 07/12/17 06:23 - Constitutional Appears: No Acute Distress, Chronically Ill - Head Exam Head Exam: ATRAUMATIC, NORMAL INSPECTION - Eye Exam Eye Exam: EOMI, Normal appearance - Neck Exam Neck Exam: Normal Inspection. absent: Tenderness - Respiratory Exam Respiratory Exam: Clear to Ausculation Bilateral, NORMAL BREATHING PATTERN - Cardiovascular Exam Cardiovascular Exam: REGULAR RHYTHM, +S1 - GI/Abdominal Exam GI & Abdominal Exam: Soft. absent: Tenderness - Extremities Exam Extremities Exam: Normal Inspection. absent: Tenderness - Neurological Exam Neurological Exam: Awake, CN II-XII Intact - Skin Skin Exam: Dry, Warm Assessment and Plan (1) CKD stage 4 due to type 2 diabetes mellitus Status: Acute (2) Proteinuria due to type 2 diabetes mellitus Status: Acute (3) Pulmonary edema Status: Acute - Assessment and Plan (Free Text) Plan: Same meds Await cardiac intervention Monitor chemistries
--- NOTE | 2017-07-13 16:22 | CP.PCM.PN ---
Subjective - Date & Time of Evaluation Date of Evaluation: 07/13/17 Time of Evaluation: 08:00 - Subjective Subjective: awake alert afebrile no new cultures Objective - Vital Signs/Intake and Output Vital Signs (last 24 hours): Temp Pulse Resp BP Pulse Ox 98.1 F 70 20 106/50 L 100 07/13/17 12:00 07/13/17 15:00 07/13/17 15:00 07/13/17 14:28 07/13/17 15:00 Intake and Output: 07/13/17 07/13/17 06:59 18:59 Intake Total 100 450 Output Total 295 380 Balance -195 70 - Medications Medications: Current Medications Acetaminophen (Tylenol 650mg/20.3ml Solution Ud) 650 mg PO Q6H PRN PRN Reason: for pain 4-6 Last Admin: 07/11/17 02:35 Dose: 650 mg Amiodarone HCl (Cordarone) 200 mg PO BID [facility] Last Admin: 07/13/17 10:46 Dose: 200 mg Famotidine (Pepcid) 20 mg IVP DAILY [facility] Last Admin: 07/13/17 10:43 Dose: 20 mg Ferric Sodium Gluconate Complex (Ferrlecit) 125 mg IVPB DAILY [facility] Stop: 07/16/17 13:31 Last Admin: 07/13/17 09:26 Dose: 125 mg Furosemide (Lasix) 40 mg IVP DAILY [facility] Last Admin: 07/13/17 10:47 Dose: 40 mg Heparin Sodium (Porcine) (Heparin) 5,000 units SC Q12 [facility] Last Admin: 07/13/17 09:29 Dose: 5,000 units Micafungin Sodium 100 mg/ (Sodium Chloride) 100 mls @ 100 mls/hr IV Q24H [facility] Last Admin: 07/12/17 21:00 Dose: 100 mls/hr Insulin Glargine (Lantus) 8 unit SC HS [facility] Last Admin: 07/12/17 23:00 Dose: 8 units Insulin Human Regular (Novolin R) 0 unit SC ACHS [facility] PRN Reason: Protocol Metoprolol Tartrate (Lopressor) 25 mg PO Q12 [facility] Last Admin: 07/13/17 09:30 Dose: Not Given Spironolactone (Aldactone) 25 mg PO DAILY [facility] Last Admin: 07/13/17 10:47 Dose: 25 mg Vitamin A (Vitamin A & D Oint Ud Foilpak) 1 ea TOP BID [facility] Last Admin: 07/13/17 10:46 Dose: 1 ea - Labs Labs: 07/13/17 06:14 07/13/17 06:14 PT 12.2 SECONDS (9.7-12.2) 07/12/17 06:23 INR 1.1 07/12/17 06:23 APTT 30 SECONDS (21-34) 07/12/17 06:23 - Constitutional Appears: Non-toxic, Chronically Ill - Head Exam Head Exam: NORMOCEPHALIC - Eye Exam Eye Exam: PERRL - ENT Exam ENT Exam: Mucous Membranes Dry - Neck Exam Neck Exam: absent: Lymphadenopathy - Respiratory Exam Respiratory Exam: Decreased Breath Sounds - Cardiovascular Exam Cardiovascular Exam: REGULAR RHYTHM - GI/Abdominal Exam GI & Abdominal Exam: Distended, Soft - Rectal Exam Rectal Exam: Deferred Assessment and Plan (1) Acute renal failure Status: Acute (2) Acute respiratory failure with hypoxemia Status: Acute (3) Anemia Status: Acute (4) CKD (chronic kidney disease) Status: Acute (5) CKD stage 4 due to type 2 diabetes mellitus Status: Acute (6) Pulmonary edema Status: Acute (7) UTI (urinary tract infection) Status: Acute
[2017-07-13] MEDS: Micafungin 100 MG in Sodium Chloride 0.9% 100 ML IV SCH (20:56)
[2017-07-13] MEDS: (Lantus) Insulin Glargine, Recombinant SC SCH (21:07)
--- NOTE | 2017-07-14 02:18 | PN ---
LOCATION: 1, bed B. SUBJECTIVE: This is a 77 years old female seen and examined in rounds today and the case discussed at length with the health consultant on the case, Dr. Bernabe Diaz, cardiac cath procedure. The patient is out of the intensive care unit to the floor and appears to be more awake, alert, and oriented without reported active bleeding in the meantime. She has period of mild confusion. The entire chart is reviewed including, but not limited to the most recent lab and radiology study results, current and the previous medication list, current and the previous medical events. Case discussed with the staff at length. Today's lab showed hemoglobin is still low at 10.2 with hematocrit 32.2 with still elevated BUN of 69 with creatinine 1.9. Blood glucose level elevated to 176, with mildly elevated AST and low albumin 3.4. PHYSICAL EXAMINATION: GENERAL: A 77 years old female. VITAL SIGNS: Afebrile with pulse of 74, blood pressure 112/54 with respiratory rate 20 to 22. HEENT: Show pale dry oral mucus membranes. Nonicteric sclerae. LUNGS: Scattered bilateral crepitation with decrease air entry at bases. HEART: Positive S1 and S2. ABDOMEN: Soft. Bowel sounds are present with slight distention. No mass or organomegaly. No rebound tenderness or guarding. RECTAL EXAMINATION: The patient refused. EXTREMITIES: Mild edematous changes. No clubbing or cyanosis. NEUROLOGIC: No new reported neurological deficits, sensory or motor. IMPRESSION: 1. Anemia. 2. Recent history of gastrointestinal bleeding with peptic ulcer disease. 3. Acute renal failure. 4. Acute respiratory insufficiency with hypoxia, . 5. Diabetes mellitus by history. 6. Reported urinary tract infection by recent history. 7. Cardiac arrhythmia with atrial fibrillation. 8. Abnormal cardiac test as per the health consultant. 9. Malnutrition, hypoalbuminemia, improving. 10. Clinical septicemia, gradually improving. As per the health consultant and after discussing the case with the initial medical admitting staff, the patient will need colonoscopy before starting on anticoagulation, as initial cardiac surgical interventions would be giving high risk at this point for which the patient is to be scheduled for colonoscopy after adequate and gentle preparation. Further recommendation to follow. Alaa Salah-Reji, MD [facility] # [id number]
[2017-07-14 08:43] LABS: POTASSIUM 4.9 mmol/L (3.6-5.2)
[2017-07-14 08:45] LABS: BILIRUBIN,TOTAL 0.9 mg/dL (0.2-1.3); TOTAL PROTEIN 7.5 g/dL (6.3-8.3)
[2017-07-14 08:46] LABS: CALCIUM 8.9 mg/dl (8.6-10.4); PHOSPHOROUS 4.4 mg/dL (2.5-4.5)
[2017-07-14] MEDS ORDERED: Peg-Electrolyte Oral Soln 4L (Golytely) PO ONE (10:00)
--- NOTE | 2017-07-14 10:39 | CP.PCM.PN ---
Subjective - Date & Time of Evaluation Date of Evaluation: 07/14/17 Time of Evaluation: 10:36 - Subjective Subjective: Alert; eating better BP controlled No n, v, SOD, CPs s/p cardiac cath- creat increased to 2.2 probable dye nephropathy- to monitor closly Objective - Vital Signs/Intake and Output Vital Signs (last 24 hours): Temp Pulse Resp BP Pulse Ox 98.1 F 70 18 136/63 97 07/14/17 08:00 07/14/17 08:00 07/14/17 08:00 07/14/17 08:00 07/14/17 08:00 Intake and Output: 07/14/17 07/14/17 06:59 18:59 Intake Total 400 Balance 400 - Medications Medications: Current Medications Acetaminophen (Tylenol 650mg/20.3ml Solution Ud) 650 mg PO Q6H PRN PRN Reason: for pain 4-6 Last Admin: 07/11/17 02:35 Dose: 650 mg Amiodarone HCl (Cordarone) 200 mg PO BID [facility] Last Admin: 07/13/17 17:23 Dose: 200 mg Bisacodyl (Dulcolax) 10 mg PO ONCE ONE Stop: 07/14/17 17:01 Famotidine (Pepcid) 20 mg IVP DAILY [facility] Last Admin: 07/13/17 10:43 Dose: 20 mg Ferric Sodium Gluconate Complex (Ferrlecit) 125 mg IVPB DAILY [facility] Stop: 07/16/17 13:31 Last Admin: 07/13/17 09:26 Dose: 125 mg Furosemide (Lasix) 40 mg IVP DAILY [facility] Last Admin: 07/13/17 10:47 Dose: 40 mg Micafungin Sodium 100 mg/ (Sodium Chloride) 100 mls @ 100 mls/hr IV Q24H [facility] Last Admin: 07/13/17 20:56 Dose: 100 mls/hr Insulin Glargine (Lantus) 8 unit SC HS [facility] Last Admin: 07/13/17 21:07 Dose: 8 units Insulin Human Regular (Novolin R) 0 unit SC ACHS [facility] PRN Reason: Protocol Last Admin: 07/13/17 21:16 Dose: Not Given Metoprolol Tartrate (Lopressor) 25 mg PO Q12 [facility] Last Admin: 07/13/17 21:09 Dose: 25 mg Spironolactone (Aldactone) 25 mg PO DAILY [facility] Last Admin: 07/13/17 10:47 Dose: 25 mg Vitamin A (Vitamin A & D Oint Ud Foilpak) 1 ea TOP BID [facility] Last Admin: 07/13/17 17:23 Dose: 1 ea - Labs Labs: 07/13/17 06:14 07/14/17 08:28 PT 12.2 SECONDS (9.7-12.2) 07/12/17 06:23 INR 1.1 07/12/17 06:23 APTT 30 SECONDS (21-34) 07/12/17 06:23 - Constitutional Appears: No Acute Distress, Chronically Ill - Head Exam Head Exam: ATRAUMATIC, NORMAL INSPECTION - Eye Exam Eye Exam: EOMI, Normal appearance - Neck Exam Neck Exam: Normal Inspection. absent: Tenderness - Respiratory Exam Respiratory Exam: Clear to Ausculation Bilateral, NORMAL BREATHING PATTERN - Cardiovascular Exam Cardiovascular Exam: REGULAR RHYTHM, +S1 - GI/Abdominal Exam GI & Abdominal Exam: Soft. absent: Tenderness - Extremities Exam Extremities Exam: Normal Inspection. absent: Tenderness - Neurological Exam Neurological Exam: Alert, CN II-XII Intact - Skin Skin Exam: Dry, Warm Assessment and Plan (1) CKD stage 4 due to type 2 diabetes mellitus Status: Acute (2) Proteinuria due to type 2 diabetes mellitus Status: Acute (3) Pulmonary edema Status: Acute - Assessment and Plan (Free Text) Plan: Serial chemistries Monitor BP
[2017-07-14] MEDS: Ferric Sodium Gluconat Complex 62.5 mg/5 ml Vial IVPB SCH (10:44)
[2017-07-14] MEDS: (Novolin R) Insulin Human Regular 100 units/ml vial SC SCH ×4 (10:45→21:19)
[2017-07-14] MEDS: Vitamins A & D Oint UD Foilpak TOP SCH ×2 (10:45→17:59)
[2017-07-14 11:47] LABS: BASO # 0.1 K/uL (0.0-0.2); BASO % 0.9 % (0.0-2.0); EOS # 0.2 K/uL (0.0-0.7); EOS % 1.7 % (0.0-4.0); HEMATOCRIT 37.7 % (34.0-47.0); LYMPH # 2.9 K/uL (1.0-4.3); LYMPH % 22.7 % (20.0-40.0); MEAN CELL VOLUME 83.8 fL (81.0-99.0); MEAN CORPUSCULAR HEMOGLOBIN 26.5 pg (27.0-31.0); MEAN CORPUSCULAR HGB CONC 31.6 g/dL (33.0-37.0); MEAN PLATELET VOLUME 10.8 fL (7.2-11.7); NRBC % 0.2 % (0.0-2.0); RED CELL DISTRIBUTION WIDTH 20.7 % (11.5-14.5); WHITE BLOOD COUNT 12.7 K/uL (4.8-10.8)
[2017-07-14] MEDS ORDERED: Bisacodyl 5mg EC Tab PO ONE (17:00)
[2017-07-14] MEDS: Micafungin 100 MG in Sodium Chloride 0.9% 100 ML IV SCH (20:33)
[2017-07-14] MEDS: (Lantus) Insulin Glargine, Recombinant SC SCH (21:15)
--- NOTE | 2017-07-15 07:43 | PN ---
LOCATION: [facility], bed B. SUBJECTIVE: This 77-year-old female, seen and examined in rounds without significant clinical changes, appeared to be somewhat more awake, alert, and follow commands with periods of mild semiconfusion and slight disorientation. No reported active bleeding and no nausea or vomiting. The entire chart is reviewed including but not limited to most recent lab and radiology study result, current and previous medication list, current and previous medical events, and the case discussed with staff at length in the floor as well as other consultants on the case including the principal consultant. The patient still has low hemoglobin and hematocrit with increased BUN at 69, creatinine 2.2 with increased blood glucose level to 132 but normal rest of the SMA-18. Oral intake still limited so far. PHYSICAL EXAMINATION: GENERAL: A 77-year-old female. VITAL SIGNS: Afebrile with a pulse of 76, respiratory rate 20 to 22, with blood pressure 140/66. HEENT: Showed pale, dry oral mucous membrane. Nonicteric sclerae. LUNGS: Few scattered crepitations. Decreased air entry at bases. HEART: Positive S1 and S2. ABDOMEN: [id number] mild generalized tenderness. No mass or organomegaly. No rebound tenderness or guarding. NEUROLOGIC: No reported neurological deficit, sensory or motor. IMPRESSION: 1. Anemia with re-exacerbation of peptic ulcer disease and reported gastrointestinal blood loss. 2. Rule out occult gastrointestinal malignancy, rule out lower gastrointestinal tract blood loss. 3. Acute renal failure, could be dye induced, discussed with the nephrology provider contracting consultant. 4. Acute respiratory insufficiency with hypoxia, improving gradual. 5. Known history of diabetes mellitus. 6. Urinary tract infection by recent history. 7. Cardiac arrhythmia with atrial fibrillation. 8. Abnormal cardiac catheterization. 9. Clinical septicemia, improving gradually. 10. Malnutrition with hyponatremia, gradually improving. SUGGESTION: 1. Continue current management. 2. The patient for colonoscopy at a.m. after adequate preparation. 3. Repeat H and H. Diana Cazares MD
[2017-07-15] MEDS: (Novolin R) Insulin Human Regular 100 units/ml vial SC SCH ×4 (08:34→22:11)
[2017-07-15 08:44] LABS: BASO # 0.1 K/uL (0.0-0.2); BASO % 0.5 % (0.0-2.0); EOS # 0.3 K/uL (0.0-0.7); EOS % 2.6 % (0.0-4.0); HEMATOCRIT 38.7 % (34.0-47.0); LYMPH # 2.6 K/uL (1.0-4.3); LYMPH % 22.5 % (20.0-40.0); MEAN CELL VOLUME 84.9 fL (81.0-99.0); MEAN CORPUSCULAR HEMOGLOBIN 26.4 pg (27.0-31.0); MEAN CORPUSCULAR HGB CONC 31.1 g/dL (33.0-37.0); MEAN PLATELET VOLUME 10.4 fL (7.2-11.7); MONO % 8.8 % (0.0-10.0); RED CELL DISTRIBUTION WIDTH 21.8 % (11.5-14.5); WHITE BLOOD COUNT 11.4 K/uL (4.8-10.8)
[2017-07-15 08:59] LABS: POTASSIUM 4.6 mmol/L (3.6-5.2)
[2017-07-15 09:01] LABS: TOTAL PROTEIN 7.3 g/dL (6.3-8.3)
[2017-07-15 09:02] LABS: CALCIUM 8.9 mg/dl (8.6-10.4); MAGNESIUM 1.9 mg/dL (1.6-2.3); PHOSPHOROUS 3.9 mg/dL (2.5-4.5)
[2017-07-15] MEDS: Ferric Sodium Gluconat Complex 62.5 mg/5 ml Vial IVPB SCH (10:35)
[2017-07-15] MEDS: Vitamins A & D Oint UD Foilpak TOP SCH ×2 (10:36→17:06)
--- NOTE | 2017-07-15 14:38 | CP.PCM.PN ---
Subjective - Date & Time of Evaluation Date of Evaluation: 07/15/17 Time of Evaluation: 14:36 - Subjective Subjective: Appears same Not dyspneic Creat increased again post cath IV lasix had been stopped no n, v, f, chills, diarrhea, CPs Objective - Vital Signs/Intake and Output Vital Signs (last 24 hours): Temp Pulse Resp BP Pulse Ox 97.8 F 57 L 14 147/66 100 07/15/17 13:07 07/15/17 13:07 07/15/17 13:07 07/15/17 13:07 07/15/17 13:07 Intake and Output: 07/15/17 07/15/17 06:59 18:59 Intake Total 100 125 Balance 100 125 - Medications Medications: Current Medications Acetaminophen (Tylenol 650mg/20.3ml Solution Ud) 650 mg PO Q6H PRN PRN Reason: for pain 4-6 Last Admin: 07/11/17 02:35 Dose: 650 mg Amiodarone HCl (Cordarone) 200 mg PO BID [facility] Last Admin: 07/15/17 10:37 Dose: 200 mg Famotidine (Pepcid) 20 mg IVP DAILY [facility] Last Admin: 07/15/17 10:35 Dose: 20 mg Ferric Sodium Gluconate Complex (Ferrlecit) 125 mg IVPB DAILY [facility] Stop: 07/16/17 13:31 Last Admin: 07/15/17 10:35 Dose: 125 mg Furosemide (Lasix) 40 mg PO DAILY [facility] Last Admin: 07/15/17 10:36 Dose: 40 mg Micafungin Sodium 100 mg/ (Sodium Chloride) 100 mls @ 100 mls/hr IV Q24H [facility] Last Admin: 07/14/17 20:33 Dose: 100 mls/hr Insulin Glargine (Lantus) 8 unit SC HS [facility] Last Admin: 07/14/17 21:15 Dose: 8 units Insulin Human Regular (Novolin R) 0 unit SC ACHS [facility] PRN Reason: Protocol Last Admin: 07/15/17 12:10 Dose: Not Given Metoprolol Tartrate (Lopressor) 25 mg PO Q12 [facility] Last Admin: 07/15/17 10:37 Dose: 25 mg Spironolactone (Aldactone) 25 mg PO DAILY [facility] Last Admin: 07/15/17 10:36 Dose: 25 mg Vitamin A (Vitamin A & D Oint Ud Foilpak) 1 ea TOP BID [facility] Last Admin: 07/15/17 10:36 Dose: 1 ea - Labs Labs: 07/15/17 08:36 07/15/17 08:36 PT 12.2 SECONDS (9.7-12.2) 07/12/17 06:23 INR 1.1 07/12/17 06:23 APTT 30 SECONDS (21-34) 07/12/17 06:23 - Constitutional Appears: No Acute Distress, Chronically Ill - Head Exam Head Exam: ATRAUMATIC, NORMAL INSPECTION - Eye Exam Eye Exam: EOMI, Normal appearance - Neck Exam Neck Exam: Normal Inspection. absent: Tenderness - Respiratory Exam Respiratory Exam: Clear to Ausculation Bilateral, NORMAL BREATHING PATTERN - Cardiovascular Exam Cardiovascular Exam: REGULAR RHYTHM, +S1 - GI/Abdominal Exam GI & Abdominal Exam: Soft. absent: Tenderness - Extremities Exam Extremities Exam: Normal Inspection. absent: Tenderness - Neurological Exam Neurological Exam: Awake, CN II-XII Intact - Skin Skin Exam: Dry, Warm Assessment and Plan (1) CKD stage 4 due to type 2 diabetes mellitus Status: Acute (2) Proteinuria due to type 2 diabetes mellitus Status: Acute (3) Pulmonary edema Status: Acute - Assessment and Plan (Free Text) Plan: Stop oral lasix follow up chemistries
[2017-07-15] MEDS: Micafungin 100 MG in Sodium Chloride 0.9% 100 ML IV SCH (19:48)
[2017-07-15] MEDS: (Lantus) Insulin Glargine, Recombinant SC SCH (22:18)
[2017-07-16] MEDS: (Novolin R) Insulin Human Regular 100 units/ml vial SC SCH ×4 (08:04→22:01)
[2017-07-16 08:51] LABS: POTASSIUM 4.4 mmol/L (3.6-5.2)
[2017-07-16 08:54] LABS: CALCIUM 8.8 mg/dl (8.6-10.4)
[2017-07-16] MEDS: Ferric Sodium Gluconat Complex 62.5 mg/5 ml Vial IVPB SCH (10:54)
[2017-07-16] MEDS: Vitamins A & D Oint UD Foilpak TOP SCH ×2 (10:55→17:51)
--- NOTE | 2017-07-16 11:29 | CP.PCM.PN ---
Subjective - Date & Time of Evaluation Date of Evaluation: 07/16/17 Time of Evaluation: 11:27 - Subjective Subjective: Notes reviewed Remains in bed Awakes to name, appears lethargic Does not provide history No distress No overnight events reported ROS unable to obtain due to lack of patient participation Objective - Vital Signs/Intake and Output Vital Signs (last 24 hours): Temp Pulse Resp BP Pulse Ox 98.1 F 63 20 133/70 98 07/16/17 08:00 07/16/17 08:00 07/16/17 08:00 07/16/17 10:55 07/16/17 08:00 Intake and Output: 07/16/17 07/16/17 06:59 18:59 Intake Total 200 Balance 200 - Medications Medications: Current Medications Acetaminophen (Tylenol 650mg/20.3ml Solution Ud) 650 mg PO Q6H PRN PRN Reason: for pain 4-6 Last Admin: 07/11/17 02:35 Dose: 650 mg Amiodarone HCl (Cordarone) 200 mg PO BID [facility] Last Admin: 07/16/17 10:55 Dose: 200 mg Famotidine (Pepcid) 20 mg IVP DAILY [facility] Last Admin: 07/16/17 10:54 Dose: 20 mg Ferric Sodium Gluconate Complex (Ferrlecit) 125 mg IVPB DAILY [facility] Stop: 07/16/17 13:31 Last Admin: 07/16/17 10:54 Dose: 125 mg Micafungin Sodium 100 mg/ (Sodium Chloride) 100 mls @ 100 mls/hr IV Q24H [facility] Last Admin: 07/15/17 19:48 Dose: 100 mls/hr Insulin Glargine (Lantus) 8 unit SC HS [facility] Last Admin: 07/15/17 22:18 Dose: 8 units Insulin Human Regular (Novolin R) 0 unit SC ACHS [facility] PRN Reason: Protocol Last Admin: 07/16/17 08:04 Dose: Not Given Metoprolol Tartrate (Lopressor) 25 mg PO Q12 [facility] Last Admin: 07/16/17 10:55 Dose: 25 mg Vitamin A (Vitamin A & D Oint Ud Foilpak) 1 ea TOP BID [facility] Last Admin: 07/16/17 10:55 Dose: 1 ea - Labs Labs: 07/15/17 08:36 07/16/17 08:18 PT 12.2 SECONDS (9.7-12.2) 07/12/17 06:23 INR 1.1 07/12/17 06:23 APTT 30 SECONDS (21-34) 07/12/17 06:23 - Constitutional Appears: Non-toxic, Chronically Ill - Head Exam Head Exam: ATRAUMATIC, NORMAL INSPECTION - Respiratory Exam Respiratory Exam: Clear to Ausculation Bilateral. absent: Rhonchi - Cardiovascular Exam Cardiovascular Exam: +S1, +S2. absent: Rubs - GI/Abdominal Exam GI & Abdominal Exam: Soft, Normal Bowel Sounds - Extremities Exam Extremities Exam: absent: Pedal Edema, Tenderness Assessment and Plan (1) Acute renal failure Status: Acute (2) CKD stage 4 due to type 2 diabetes mellitus Status: Acute (3) Proteinuria due to type 2 diabetes mellitus Status: Acute (4) UTI (urinary tract infection) Status: Acute - Assessment and Plan (Free Text) Assessment: Renal function slowly improving Continue to hold lasix Electrolytes acceptable Daily labs Continue abx as ordered by ID
[2017-07-16] MEDS: Acetaminophen 650mg/20.3ml solution UD PO PRN (12:38)
[2017-07-16] MEDS: Micafungin 100 MG in Sodium Chloride 0.9% 100 ML IV SCH (19:23)
[2017-07-16] MEDS: (Lantus) Insulin Glargine, Recombinant SC SCH (22:01)
[2017-07-17] MEDS: (Novolin R) Insulin Human Regular 100 units/ml vial SC SCH ×4 (08:00→21:49)
[2017-07-17 09:12] LABS: POTASSIUM 4.5 mmol/L (3.6-5.2)
[2017-07-17 09:16] LABS: CALCIUM 8.8 mg/dl (8.6-10.4)
[2017-07-17] MEDS: Vitamins A & D Oint UD Foilpak TOP SCH ×2 (10:15→17:23)
--- NOTE | 2017-07-17 13:04 | PN ---
DATE:07/17/2017 LOCATION: Room 571, bed B. SUBJECTIVE: This is a 77-year-old female seen in the examiner rounds without significant clinical changes with intermittent period of abdominal pain, but no reported active bleeding. The entire chart is reviewed including, but not limited to the most recent lab and the radiology study results, current and previous medication list, and current and previous medical events, and today's blood glucose level is still elevated to 103. Rest of the lab result is still pending. The patient appeared to be somewhat mildly lethargic and no reported active bleeding, but again poor oral intake. PHYSICAL EXAMINATION GENERAL: A [id number]. VITAL SIGNS: Afebrile with a pulse of 64, respiratory rate. 20 and 22, blood pressure 124/68. HEENT: Show pale dry oral mucous membrane. Nonicteric sclerae. LUNGS: Few scattered crepitation. Decreased air entry at bases. HEART: Positive S1 and S2. ABDOMEN: Soft, bowel sounds are present. No mass or organomegaly. No rebound tenderness or guarding, but slight distention. EXTREMITIES: Lower extremity with mild edematous changes. No clubbing or cyanosis. VASCULAR: Peripheral pulses are present bilaterally, but weak. NEUROLOGIC: No new reported neurological deficits, focal, sensory or motor. IMPRESSION: 1. Anemia. 2. Re-exacerbation of peptic ulcer disease with gastrointestinal blood loss. 3. Acute renal failure. 4. Acute respiratory insufficiency with hypoxemia, gradually improving. 5. Cardiac arrhythmia with atrial fibrillation. 6. Clinical septicemia with retracting fissure, removed, improving. 7. Malnutrition. 8. Hypoalbuminemia. SUGGESTION: 1. Continue current management. 2. Blood transfusion as needed, to get hemoglobin 110 g/l. 3. Prefer hyperalimentation. 4. Further recommendations to follow this per Dr. Cazares. Diana Cazares MD cc: Diana Cazares MD
[2017-07-17] MEDS: Micafungin 100 MG in Sodium Chloride 0.9% 100 ML IV SCH (20:24)
--- NOTE | 2017-07-17 21:02 | CP.PCM.PN ---
Subjective - Date & Time of Evaluation Date of Evaluation: 07/13/17 Time of Evaluation: 06:35 - Subjective Subjective: No new events noted Physical Examination - Constitutional Appears: No Acute Distress, Chronically Ill - Head Exam Head Exam: ATRAUMATIC, NORMOCEPHALIC - Eye Exam Eye Exam: EOMI - ENT Exam ENT Exam: Mucous Membranes Moist - Respiratory Exam Respiratory Exam: Decreased Breath Sounds. absent: Wheezes, Respiratory Distress - Cardiovascular Exam Cardiovascular Exam: Irregular Rhythm, +S1, +S2 - GI/Abdominal Exam GI & Abdominal Exam: Normal Bowel Sounds - Back Exam Back Exam: NORMAL INSPECTION - Neurological Exam Neurological Exam: Alert, Awake - Skin Skin Exam: Dry, Warm Objective - Vital Signs/Intake and Output Vital Signs (last 24 hours): Temp Pulse Resp BP Pulse Ox 98.3 F 66 20 108/63 95 07/17/17 15:00 07/17/17 16:16 07/17/17 15:00 07/17/17 15:00 07/17/17 15:00 Intake and Output: 07/17/17 07/18/17 18:59 06:59 Intake Total 480 Balance 480 - Medications Medications: Current Medications Acetaminophen (Tylenol 650mg/20.3ml Solution Ud) 650 mg PO Q6H PRN PRN Reason: for pain 4-6 Last Admin: 07/11/17 02:35 Dose: 650 mg Aspirin (Ecotrin) 81 mg PO DAILY [facility] Last Admin: 07/17/17 10:15 Dose: 81 mg Clopidogrel Bisulfate (Plavix) 75 mg PO DAILY [facility] Last Admin: 07/17/17 10:15 Dose: 75 mg Famotidine (Pepcid) 20 mg IVP DAILY [facility] Last Admin: 07/17/17 10:15 Dose: 20 mg Heparin Sodium (Porcine) (Heparin) 5,000 units SC Q8 [facility] Last Admin: 07/17/17 13:10 Dose: 5,000 units Micafungin Sodium 100 mg/ (Sodium Chloride) 100 mls @ 100 mls/hr IV Q24H [facility] Last Admin: 07/17/17 20:24 Dose: 100 mls/hr Insulin Glargine (Lantus) 8 unit SC HS [facility] Last Admin: 07/16/17 22:01 Dose: 8 units Insulin Human Regular (Novolin R) 0 unit SC ACHS [facility] PRN Reason: Protocol Last Admin: 07/17/17 17:22 Dose: 4 unit Metoprolol Tartrate (Lopressor) 25 mg PO Q12 [facility] Last Admin: 07/17/17 10:15 Dose: 25 mg Vitamin A (Vitamin A & D Oint Ud Foilpak) 1 ea TOP BID [facility] Last Admin: 07/17/17 17:23 Dose: 1 ea - Labs Labs: 07/15/17 08:36 07/17/17 08:48 PT 12.2 SECONDS (9.7-12.2) 07/12/17 06:23 INR 1.1 07/12/17 06:23 APTT 30 SECONDS (21-34) 07/12/17 06:23 Assessment and Plan - Assessment and Plan (Free Text) Assessment: 1. CAD s/p Non STEMI 2. Paraxysmal A Fib not on anticoagulation due to GI bleeding 3. DM 2 4. CKD 5. S/P Respiratory failure 6. Ischemic CMP with systolic CHF 7. Severe MR 8. Triple vessel disease For PCI after GI clearance
--- NOTE | 2017-07-17 21:03 | CP.PCM.PN ---
Subjective - Date & Time of Evaluation Date of Evaluation: 07/14/17 Time of Evaluation: 08:00 - Subjective Subjective: No new events noted Physical Examination - Constitutional Appears: No Acute Distress, Chronically Ill - Head Exam Head Exam: ATRAUMATIC, NORMOCEPHALIC - Eye Exam Eye Exam: EOMI - ENT Exam ENT Exam: Mucous Membranes Moist - Respiratory Exam Respiratory Exam: Decreased Breath Sounds. absent: Wheezes, Respiratory Distress - Cardiovascular Exam Cardiovascular Exam: Irregular Rhythm, +S1, +S2 - GI/Abdominal Exam GI & Abdominal Exam: Normal Bowel Sounds - Back Exam Back Exam: NORMAL INSPECTION - Neurological Exam Neurological Exam: Alert, Awake - Skin Skin Exam: Dry, Warm Objective - Vital Signs/Intake and Output Vital Signs (last 24 hours): Temp Pulse Resp BP Pulse Ox 98.3 F 66 20 108/63 95 07/17/17 15:00 07/17/17 16:16 07/17/17 15:00 07/17/17 15:00 07/17/17 15:00 Intake and Output: 07/17/17 07/18/17 18:59 06:59 Intake Total 480 Balance 480 - Medications Medications: Current Medications Acetaminophen (Tylenol 650mg/20.3ml Solution Ud) 650 mg PO Q6H PRN PRN Reason: for pain 4-6 Last Admin: 07/11/17 02:35 Dose: 650 mg Aspirin (Ecotrin) 81 mg PO DAILY [facility] Last Admin: 07/17/17 10:15 Dose: 81 mg Clopidogrel Bisulfate (Plavix) 75 mg PO DAILY [facility] Last Admin: 07/17/17 10:15 Dose: 75 mg Famotidine (Pepcid) 20 mg IVP DAILY [facility] Last Admin: 07/17/17 10:15 Dose: 20 mg Heparin Sodium (Porcine) (Heparin) 5,000 units SC Q8 [facility] Last Admin: 07/17/17 13:10 Dose: 5,000 units Micafungin Sodium 100 mg/ (Sodium Chloride) 100 mls @ 100 mls/hr IV Q24H [facility] Last Admin: 07/17/17 20:24 Dose: 100 mls/hr Insulin Glargine (Lantus) 8 unit SC HS [facility] Last Admin: 07/16/17 22:01 Dose: 8 units Insulin Human Regular (Novolin R) 0 unit SC ACHS [facility] PRN Reason: Protocol Last Admin: 07/17/17 17:22 Dose: 4 unit Metoprolol Tartrate (Lopressor) 25 mg PO Q12 [facility] Last Admin: 07/17/17 10:15 Dose: 25 mg Vitamin A (Vitamin A & D Oint Ud Foilpak) 1 ea TOP BID [facility] Last Admin: 07/17/17 17:23 Dose: 1 ea - Labs Labs: 07/15/17 08:36 07/17/17 08:48 PT 12.2 SECONDS (9.7-12.2) 07/12/17 06:23 INR 1.1 07/12/17 06:23 APTT 30 SECONDS (21-34) 07/12/17 06:23 Assessment and Plan - Assessment and Plan (Free Text) Assessment: 1. CAD s/p Non STEMI 2. Paraxysmal A Fib not on anticoagulation due to GI bleeding 3. DM 2 4. CKD 5. S/P Respiratory failure 6. Ischemic CMP with systolic CHF 7. Severe MR 8. Triple vessel disease For PCI after GI clearance
--- NOTE | 2017-07-17 21:04 | CP.PCM.PN ---
Subjective - Date & Time of Evaluation Date of Evaluation: 07/15/17 Time of Evaluation: 07:15 - Subjective Subjective: No new events noted Physical Examination - Constitutional Appears: No Acute Distress, Chronically Ill - Head Exam Head Exam: ATRAUMATIC, NORMOCEPHALIC - Eye Exam Eye Exam: EOMI - ENT Exam ENT Exam: Mucous Membranes Moist - Respiratory Exam Respiratory Exam: Decreased Breath Sounds. absent: Wheezes, Respiratory Distress - Cardiovascular Exam Cardiovascular Exam: Irregular Rhythm, +S1, +S2 - GI/Abdominal Exam GI & Abdominal Exam: Normal Bowel Sounds - Back Exam Back Exam: NORMAL INSPECTION - Neurological Exam Neurological Exam: Alert, Awake - Skin Skin Exam: Dry, Warm Objective - Vital Signs/Intake and Output Vital Signs (last 24 hours): Temp Pulse Resp BP Pulse Ox 98.3 F 66 20 108/63 95 07/17/17 15:00 07/17/17 16:16 07/17/17 15:00 07/17/17 15:00 07/17/17 15:00 Intake and Output: 07/17/17 07/18/17 18:59 06:59 Intake Total 480 Balance 480 - Medications Medications: Current Medications Acetaminophen (Tylenol 650mg/20.3ml Solution Ud) 650 mg PO Q6H PRN PRN Reason: for pain 4-6 Last Admin: 07/11/17 02:35 Dose: 650 mg Aspirin (Ecotrin) 81 mg PO DAILY [facility] Last Admin: 07/17/17 10:15 Dose: 81 mg Clopidogrel Bisulfate (Plavix) 75 mg PO DAILY [facility] Last Admin: 07/17/17 10:15 Dose: 75 mg Famotidine (Pepcid) 20 mg IVP DAILY [facility] Last Admin: 07/17/17 10:15 Dose: 20 mg Heparin Sodium (Porcine) (Heparin) 5,000 units SC Q8 [facility] Last Admin: 07/17/17 13:10 Dose: 5,000 units Micafungin Sodium 100 mg/ (Sodium Chloride) 100 mls @ 100 mls/hr IV Q24H [facility] Last Admin: 07/17/17 20:24 Dose: 100 mls/hr Insulin Glargine (Lantus) 8 unit SC HS [facility] Last Admin: 07/16/17 22:01 Dose: 8 units Insulin Human Regular (Novolin R) 0 unit SC ACHS [facility] PRN Reason: Protocol Last Admin: 07/17/17 17:22 Dose: 4 unit Metoprolol Tartrate (Lopressor) 25 mg PO Q12 [facility] Last Admin: 07/17/17 10:15 Dose: 25 mg Vitamin A (Vitamin A & D Oint Ud Foilpak) 1 ea TOP BID [facility] Last Admin: 07/17/17 17:23 Dose: 1 ea - Labs Labs: 07/15/17 08:36 07/17/17 08:48 PT 12.2 SECONDS (9.7-12.2) 07/12/17 06:23 INR 1.1 07/12/17 06:23 APTT 30 SECONDS (21-34) 07/12/17 06:23 Assessment and Plan - Assessment and Plan (Free Text) Assessment: 1. CAD s/p Non STEMI 2. Paraxysmal A Fib not on anticoagulation due to GI bleeding 3. DM 2 4. CKD 5. S/P Respiratory failure 6. Ischemic CMP with systolic CHF 7. Severe MR 8. Triple vessel disease For PCI after GI clearance
--- NOTE | 2017-07-17 21:07 | CP.PCM.PN ---
Subjective - Date & Time of Evaluation Date of Evaluation: 07/16/17 Time of Evaluation: 11:05 - Subjective Subjective: Patient seen and evaluated No chest pain or dyspnea Physical Examination - Constitutional Appears: No Acute Distress, Chronically Ill - Head Exam Head Exam: ATRAUMATIC, NORMOCEPHALIC - Eye Exam Eye Exam: EOMI - ENT Exam ENT Exam: Mucous Membranes Moist - Respiratory Exam Respiratory Exam: Decreased Breath Sounds. absent: Wheezes, Respiratory Distress - Cardiovascular Exam Cardiovascular Exam: Irregular Rhythm, +S1, +S2 - GI/Abdominal Exam GI & Abdominal Exam: Normal Bowel Sounds - Back Exam Back Exam: NORMAL INSPECTION - Neurological Exam Neurological Exam: Alert, Awake - Skin Skin Exam: Dry, Warm Objective - Vital Signs/Intake and Output Vital Signs (last 24 hours): Temp Pulse Resp BP Pulse Ox 98.3 F 66 20 108/63 95 07/17/17 15:00 07/17/17 16:16 07/17/17 15:00 07/17/17 15:00 07/17/17 15:00 Intake and Output: 07/17/17 07/18/17 18:59 06:59 Intake Total 480 Balance 480 - Medications Medications: Current Medications Acetaminophen (Tylenol 650mg/20.3ml Solution Ud) 650 mg PO Q6H PRN PRN Reason: for pain 4-6 Last Admin: 07/11/17 02:35 Dose: 650 mg Aspirin (Ecotrin) 81 mg PO DAILY [facility] Last Admin: 07/17/17 10:15 Dose: 81 mg Clopidogrel Bisulfate (Plavix) 75 mg PO DAILY [facility] Last Admin: 07/17/17 10:15 Dose: 75 mg Famotidine (Pepcid) 20 mg IVP DAILY [facility] Last Admin: 07/17/17 10:15 Dose: 20 mg Heparin Sodium (Porcine) (Heparin) 5,000 units SC Q8 [facility] Last Admin: 07/17/17 13:10 Dose: 5,000 units Micafungin Sodium 100 mg/ (Sodium Chloride) 100 mls @ 100 mls/hr IV Q24H [facility] Last Admin: 07/17/17 20:24 Dose: 100 mls/hr Insulin Glargine (Lantus) 8 unit SC HS [facility] Last Admin: 07/16/17 22:01 Dose: 8 units Insulin Human Regular (Novolin R) 0 unit SC ACHS [facility] PRN Reason: Protocol Last Admin: 07/17/17 17:22 Dose: 4 unit Metoprolol Tartrate (Lopressor) 25 mg PO Q12 [facility] Last Admin: 07/17/17 10:15 Dose: 25 mg Vitamin A (Vitamin A & D Oint Ud Foilpak) 1 ea TOP BID [facility] Last Admin: 07/17/17 17:23 Dose: 1 ea - Labs Labs: 07/15/17 08:36 07/17/17 08:48 PT 12.2 SECONDS (9.7-12.2) 07/12/17 06:23 INR 1.1 07/12/17 06:23 APTT 30 SECONDS (21-34) 07/12/17 06:23 Assessment and Plan - Assessment and Plan (Free Text) Assessment: 1. CAD s/p Non STEMI 2. Paraxysmal A Fib not on anticoagulation due to GI bleeding 3. DM 2 4. CKD 5. S/P Respiratory failure 6. Ischemic CMP with systolic CHF 7. Severe MR 8. Triple vessel disease GI wok up negative. Patient started on ASA and Plavix For PCI Tuesday
--- NOTE | 2017-07-17 21:12 | CP.PCM.PN ---
Subjective - Date & Time of Evaluation Date of Evaluation: 07/17/17 Time of Evaluation: 11:15 - Subjective Subjective: No new events noted Physical Examination - Constitutional Appears: No Acute Distress, Chronically Ill - Head Exam Head Exam: ATRAUMATIC, NORMOCEPHALIC - Eye Exam Eye Exam: EOMI - ENT Exam ENT Exam: Mucous Membranes Moist - Respiratory Exam Respiratory Exam: Decreased Breath Sounds. absent: Wheezes, Respiratory Distress - Cardiovascular Exam Cardiovascular Exam: Irregular Rhythm, +S1, +S2 - GI/Abdominal Exam GI & Abdominal Exam: Normal Bowel Sounds - Back Exam Back Exam: NORMAL INSPECTION - Neurological Exam Neurological Exam: Alert, Awake - Skin Skin Exam: Dry, Warm Objective - Vital Signs/Intake and Output Vital Signs (last 24 hours): Temp Pulse Resp BP Pulse Ox 98.3 F 66 20 108/63 95 07/17/17 15:00 07/17/17 16:16 07/17/17 15:00 07/17/17 15:00 07/17/17 15:00 Intake and Output: 07/17/17 07/18/17 18:59 06:59 Intake Total 480 Balance 480 - Medications Medications: Current Medications Acetaminophen (Tylenol 650mg/20.3ml Solution Ud) 650 mg PO Q6H PRN PRN Reason: for pain 4-6 Last Admin: 07/11/17 02:35 Dose: 650 mg Aspirin (Ecotrin) 81 mg PO DAILY [facility] Last Admin: 07/17/17 10:15 Dose: 81 mg Clopidogrel Bisulfate (Plavix) 75 mg PO DAILY [facility] Last Admin: 07/17/17 10:15 Dose: 75 mg Famotidine (Pepcid) 20 mg IVP DAILY [facility] Last Admin: 07/17/17 10:15 Dose: 20 mg Heparin Sodium (Porcine) (Heparin) 5,000 units SC Q8 [facility] Last Admin: 07/17/17 13:10 Dose: 5,000 units Micafungin Sodium 100 mg/ (Sodium Chloride) 100 mls @ 100 mls/hr IV Q24H [facility] Last Admin: 07/17/17 20:24 Dose: 100 mls/hr Insulin Glargine (Lantus) 8 unit SC HS [facility] Last Admin: 07/16/17 22:01 Dose: 8 units Insulin Human Regular (Novolin R) 0 unit SC ACHS [facility] PRN Reason: Protocol Last Admin: 07/17/17 17:22 Dose: 4 unit Metoprolol Tartrate (Lopressor) 25 mg PO Q12 [facility] Last Admin: 07/17/17 10:15 Dose: 25 mg Vitamin A (Vitamin A & D Oint Ud Foilpak) 1 ea TOP BID [facility] Last Admin: 07/17/17 17:23 Dose: 1 ea - Labs Labs: 07/15/17 08:36 07/17/17 08:48 PT 12.2 SECONDS (9.7-12.2) 07/12/17 06:23 INR 1.1 07/12/17 06:23 APTT 30 SECONDS (21-34) 07/12/17 06:23 Assessment and Plan - Assessment and Plan (Free Text) Assessment: 1. CAD s/p Non STEMI 2. Paraxysmal A Fib not on anticoagulation due to GI bleeding 3. DM 2 4. CKD 5. S/P Respiratory failure 6. Ischemic CMP with systolic CHF 7. Severe MR 8. Triple vessel disease For PCI tomorrow
[2017-07-17] MEDS: (Lantus) Insulin Glargine, Recombinant SC SCH (21:37)
[2017-07-18 07:32] LABS: POTASSIUM 4.7 mmol/L (3.6-5.2)
[2017-07-18 07:35] LABS: CALCIUM 8.7 mg/dl (8.6-10.4)
[2017-07-18] MEDS: (Novolin R) Insulin Human Regular 100 units/ml vial SC SCH ×4 (08:21→21:54)
[2017-07-18] MEDS: Vitamins A & D Oint UD Foilpak TOP SCH ×2 (10:45→17:31)
--- NOTE | 2017-07-18 13:32 | CP.PCM.PN ---
Subjective - Date & Time of Evaluation Date of Evaluation: 07/18/17 Time of Evaluation: 13:29 - Subjective Subjective: Awake , same lerthargy Renal function same BP controlled no new events; no n, v, fevers, chills, HAs new PCI pending Objective - Vital Signs/Intake and Output Vital Signs (last 24 hours): Temp Pulse Resp BP Pulse Ox 98.2 F 68 20 119/71 97 07/18/17 08:00 07/18/17 08:00 07/18/17 08:00 07/18/17 10:42 07/18/17 08:00 Intake and Output: 07/18/17 07/18/17 06:59 18:59 Intake Total 400 Balance 400 - Medications Medications: Current Medications Acetaminophen (Tylenol 650mg/20.3ml Solution Ud) 650 mg PO Q6H PRN PRN Reason: for pain 4-6 Last Admin: 07/11/17 02:35 Dose: 650 mg Aspirin (Ecotrin) 81 mg PO DAILY [facility] Last Admin: 07/18/17 10:42 Dose: Not Given Clopidogrel Bisulfate (Plavix) 75 mg PO DAILY [facility] Last Admin: 07/18/17 10:45 Dose: Not Given Famotidine (Pepcid) 20 mg IVP DAILY [facility] Last Admin: 07/18/17 10:42 Dose: 20 mg Heparin Sodium (Porcine) (Heparin) 5,000 units SC Q8 [facility] Last Admin: 07/18/17 10:43 Dose: Not Given Micafungin Sodium 100 mg/ (Sodium Chloride) 100 mls @ 100 mls/hr IV Q24H [facility] Last Admin: 07/17/17 20:24 Dose: 100 mls/hr Insulin Glargine (Lantus) 8 unit SC HS [facility] Last Admin: 07/17/17 21:37 Dose: 8 units Insulin Human Regular (Novolin R) 0 unit SC ACHS [facility] PRN Reason: Protocol Last Admin: 07/18/17 08:21 Dose: Not Given Metoprolol Tartrate (Lopressor) 25 mg PO Q12 [facility] Last Admin: 07/18/17 10:42 Dose: 25 mg Vitamin A (Vitamin A & D Oint Ud Foilpak) 1 ea TOP BID [facility] Last Admin: 07/18/17 10:45 Dose: 1 ea - Labs Labs: 07/15/17 08:36 07/18/17 07:06 PT 12.2 SECONDS (9.7-12.2) 07/12/17 06:23 INR 1.1 07/12/17 06:23 APTT 30 SECONDS (21-34) 07/12/17 06:23 - Constitutional Appears: No Acute Distress, Chronically Ill - Head Exam Head Exam: ATRAUMATIC, NORMAL INSPECTION - Eye Exam Eye Exam: EOMI, Normal appearance - Neck Exam Neck Exam: Normal Inspection. absent: Tenderness - Respiratory Exam Respiratory Exam: Clear to Ausculation Bilateral, NORMAL BREATHING PATTERN - Cardiovascular Exam Cardiovascular Exam: REGULAR RHYTHM, +S1 - GI/Abdominal Exam GI & Abdominal Exam: Soft. absent: Tenderness - Extremities Exam Extremities Exam: Normal Inspection. absent: Tenderness - Neurological Exam Neurological Exam: Alert, CN II-XII Intact - Skin Skin Exam: Dry, Warm Assessment and Plan (1) CKD stage 4 due to type 2 diabetes mellitus Status: Acute (2) Proteinuria due to type 2 diabetes mellitus Status: Acute (3) Pulmonary edema Status: Acute - Assessment and Plan (Free Text) Plan: same meds follow up lytes, renal function await decision about PCI
--- NOTE | 2017-07-18 13:39 | CP.PCM.PN ---
Subjective - Date & Time of Evaluation Date of Evaluation: 07/18/17 Time of Evaluation: 13:35 - Subjective Subjective: MIK GARCIA DECLINED ANGIOPLASTY DUE TO STATE REGULATION PT WILL GO TO [facility] [place] BUT WILL NEED AUTHORIZATION CLINICALLY SAME CR STABLE D/W FAMILY Objective - Vital Signs/Intake and Output Vital Signs (last 24 hours): Temp Pulse Resp BP Pulse Ox 98.2 F 68 20 119/71 97 07/18/17 08:00 07/18/17 08:00 07/18/17 08:00 07/18/17 10:42 07/18/17 08:00 - Medications Medications: Current Medications Acetaminophen (Tylenol 650mg/20.3ml Solution Ud) 650 mg PO Q6H PRN PRN Reason: for pain 4-6 Last Admin: 07/11/17 02:35 Dose: 650 mg Aspirin (Ecotrin) 81 mg PO DAILY [facility] Last Admin: 07/18/17 10:42 Dose: Not Given Clopidogrel Bisulfate (Plavix) 75 mg PO DAILY [facility] Last Admin: 07/18/17 10:45 Dose: Not Given Famotidine (Pepcid) 20 mg IVP DAILY [facility] Last Admin: 07/18/17 10:42 Dose: 20 mg Heparin Sodium (Porcine) (Heparin) 5,000 units SC Q8 [facility] Last Admin: 07/18/17 10:43 Dose: Not Given Micafungin Sodium 100 mg/ (Sodium Chloride) 100 mls @ 100 mls/hr IV Q24H [facility] Last Admin: 07/17/17 20:24 Dose: 100 mls/hr Insulin Glargine (Lantus) 8 unit SC HS [facility] Last Admin: 07/17/17 21:37 Dose: 8 units Insulin Human Regular (Novolin R) 0 unit SC ACHS [facility] PRN Reason: Protocol Last Admin: 07/18/17 08:21 Dose: Not Given Metoprolol Tartrate (Lopressor) 25 mg PO Q12 [facility] Last Admin: 07/18/17 10:42 Dose: 25 mg Vitamin A (Vitamin A & D Oint Ud Foilpak) 1 ea TOP BID [facility] Last Admin: 07/18/17 10:45 Dose: 1 ea - Labs Labs: 07/15/17 08:36 07/18/17 07:06 PT 12.2 SECONDS (9.7-12.2) 07/12/17 06:23 INR 1.1 07/12/17 06:23 APTT 30 SECONDS (21-34) 07/12/17 06:23
[2017-07-18] MEDS: Micafungin 100 MG in Sodium Chloride 0.9% 100 ML IV SCH (20:36)
[2017-07-18] MEDS: (Lantus) Insulin Glargine, Recombinant SC SCH (21:53)
--- NOTE | 2017-07-19 00:20 | CP.PCM.PN ---
Subjective - Date & Time of Evaluation Date of Evaluation: 07/18/17 Time of Evaluation: 13:10 - Subjective Subjective: [facility] could not accept the patient for PCI due to Dementia ( CPORT restriction) Patient need [facility] Will get pre auth Objective - Vital Signs/Intake and Output Vital Signs (last 24 hours): Temp Pulse Resp BP Pulse Ox 98.7 F 65 20 124/66 97 07/18/17 23:28 07/18/17 23:28 07/18/17 23:28 07/18/17 23:28 07/18/17 23:28 Intake and Output: 07/18/17 07/19/17 18:59 06:59 Intake Total 100 Balance 100 - Medications Medications: Current Medications Acetaminophen (Tylenol 650mg/20.3ml Solution Ud) 650 mg PO Q6H PRN PRN Reason: for pain 4-6 Last Admin: 07/11/17 02:35 Dose: 650 mg Aspirin (Ecotrin) 81 mg PO DAILY [facility] Last Admin: 07/18/17 15:00 Dose: 81 mg Clopidogrel Bisulfate (Plavix) 75 mg PO DAILY [facility] Last Admin: 07/18/17 14:59 Dose: 75 mg Famotidine (Pepcid) 20 mg IVP DAILY [facility] Last Admin: 07/18/17 10:42 Dose: 20 mg Heparin Sodium (Porcine) (Heparin) 5,000 units SC Q8 [facility] Last Admin: 07/18/17 21:51 Dose: 5,000 units Micafungin Sodium 100 mg/ (Sodium Chloride) 100 mls @ 100 mls/hr IV Q24H [facility] Last Admin: 07/18/17 20:36 Dose: 100 mls/hr Insulin Glargine (Lantus) 8 unit SC HS [facility] Last Admin: 07/18/17 21:53 Dose: 8 units Insulin Human Regular (Novolin R) 0 unit SC ACHS [facility] PRN Reason: Protocol Last Admin: 07/18/17 21:54 Dose: Not Given Metoprolol Tartrate (Lopressor) 25 mg PO Q12 [facility] Last Admin: 07/18/17 21:53 Dose: 25 mg Vitamin A (Vitamin A & D Oint Ud Foilpak) 1 ea TOP BID [facility] Last Admin: 07/18/17 17:31 Dose: 1 ea - Labs Labs: 07/15/17 08:36 07/18/17 07:06 PT 12.2 SECONDS (9.7-12.2) 07/12/17 06:23 INR 1.1 07/12/17 06:23 APTT 30 SECONDS (21-34) 07/12/17 06:23
[2017-07-19] MEDS: (Novolin R) Insulin Human Regular 100 units/ml vial SC SCH ×4 (07:23→22:06)
[2017-07-19 09:14] LABS: POTASSIUM 4.6 mmol/L (3.6-5.2)
[2017-07-19 09:17] LABS: CALCIUM 8.5 mg/dl (8.6-10.4)
[2017-07-19] MEDS: Vitamins A & D Oint UD Foilpak TOP SCH ×2 (09:25→17:26)
--- NOTE | 2017-07-19 11:29 | CP.PCM.PN ---
Subjective - Date & Time of Evaluation Date of Evaluation: 07/19/17 Time of Evaluation: 11:28 - Subjective Subjective: seen and examined, discussed w/ daughter at bedside improving oral intake. creatinine stable pending cardiac cath Objective - Vital Signs/Intake and Output Vital Signs (last 24 hours): Temp Pulse Resp BP Pulse Ox 97.7 F 73 20 128/76 96 07/19/17 07:50 07/19/17 07:50 07/19/17 07:50 07/19/17 09:25 07/19/17 07:50 Intake and Output: 07/19/17 07/19/17 06:59 18:59 Intake Total 100 Balance 100 - Medications Medications: Current Medications Acetaminophen (Tylenol 650mg/20.3ml Solution Ud) 650 mg PO Q6H PRN PRN Reason: for pain 4-6 Last Admin: 07/11/17 02:35 Dose: 650 mg Aspirin (Ecotrin) 81 mg PO DAILY [facility] Last Admin: 07/19/17 09:25 Dose: 81 mg Clopidogrel Bisulfate (Plavix) 75 mg PO DAILY [facility] Last Admin: 07/19/17 09:25 Dose: 75 mg Famotidine (Pepcid) 20 mg IVP DAILY [facility] Last Admin: 07/19/17 09:25 Dose: 20 mg Heparin Sodium (Porcine) (Heparin) 5,000 units SC Q8 [facility] Last Admin: 07/19/17 05:29 Dose: 5,000 units Micafungin Sodium 100 mg/ (Sodium Chloride) 100 mls @ 100 mls/hr IV Q24H [facility] Last Admin: 07/18/17 20:36 Dose: 100 mls/hr Insulin Glargine (Lantus) 8 unit SC HS [facility] Last Admin: 07/18/17 21:53 Dose: 8 units Insulin Human Regular (Novolin R) 0 unit SC ACHS [facility] PRN Reason: Protocol Last Admin: 07/19/17 07:23 Dose: Not Given Metoprolol Tartrate (Lopressor) 25 mg PO Q12 [facility] Last Admin: 07/19/17 09:25 Dose: 25 mg Vitamin A (Vitamin A & D Oint Ud Foilpak) 1 ea TOP BID [facility] Last Admin: 07/19/17 09:25 Dose: 1 ea - Labs Labs: 07/15/17 08:36 07/19/17 08:24 PT 12.2 SECONDS (9.7-12.2) 07/12/17 06:23 INR 1.1 07/12/17 06:23 APTT 30 SECONDS (21-34) 07/12/17 06:23 - Constitutional Appears: No Acute Distress, Older Than Stated Age, Chronically Ill - Head Exam Head Exam: NORMAL INSPECTION - Eye Exam Eye Exam: Normal appearance - ENT Exam ENT Exam: Mucous Membranes Moist, Normal Exam - Neck Exam Neck Exam: Normal Inspection - Respiratory Exam Respiratory Exam: Decreased Breath Sounds, NORMAL BREATHING PATTERN - Cardiovascular Exam Cardiovascular Exam: REGULAR RHYTHM, RRR - GI/Abdominal Exam GI & Abdominal Exam: Soft, Normal Bowel Sounds - Extremities Exam Extremities Exam: Normal Inspection Assessment and Plan (1) CKD (chronic kidney disease) Status: Acute (2) Acute respiratory failure with hypoxemia Status: Acute (3) Anemia Status: Acute (4) Elevated troponin Status: Acute (5) Acute renal failure Status: Acute - Assessment and Plan (Free Text) Assessment: stable renal function awaiting cardiac cath avoid arb / acei
--- NOTE | 2017-07-19 13:41 | CP.PCM.PN ---
Subjective - Date & Time of Evaluation Date of Evaluation: 07/19/17 Time of Evaluation: 13:39 - Subjective Subjective: AWAITING TRANSFER TO [facility] FOR ANGIOPLASTY CLINICALLY STABLE Objective - Vital Signs/Intake and Output Vital Signs (last 24 hours): Temp Pulse Resp BP Pulse Ox 97.7 F 77 20 128/76 96 07/19/17 07:50 07/19/17 09:00 07/19/17 07:50 07/19/17 09:25 07/19/17 07:50 - Medications Medications: Current Medications Acetaminophen (Tylenol 650mg/20.3ml Solution Ud) 650 mg PO Q6H PRN PRN Reason: for pain 4-6 Last Admin: 07/11/17 02:35 Dose: 650 mg Aspirin (Ecotrin) 81 mg PO DAILY [facility] Last Admin: 07/19/17 09:25 Dose: 81 mg Clopidogrel Bisulfate (Plavix) 75 mg PO DAILY [facility] Last Admin: 07/19/17 09:25 Dose: 75 mg Famotidine (Pepcid) 20 mg IVP DAILY [facility] Last Admin: 07/19/17 09:25 Dose: 20 mg Heparin Sodium (Porcine) (Heparin) 5,000 units SC Q8 [facility] Last Admin: 07/19/17 13:10 Dose: 5,000 units Micafungin Sodium 100 mg/ (Sodium Chloride) 100 mls @ 100 mls/hr IV Q24H [facility] Last Admin: 07/18/17 20:36 Dose: 100 mls/hr Insulin Glargine (Lantus) 8 unit SC HS [facility] Last Admin: 07/18/17 21:53 Dose: 8 units Insulin Human Regular (Novolin R) 0 unit SC ACHS [facility] PRN Reason: Protocol Last Admin: 07/19/17 12:23 Dose: 2 unit Metoprolol Tartrate (Lopressor) 25 mg PO Q12 [facility] Last Admin: 07/19/17 09:25 Dose: 25 mg Vitamin A (Vitamin A & D Oint Ud Foilpak) 1 ea TOP BID [facility] Last Admin: 07/19/17 09:25 Dose: 1 ea - Labs Labs: 07/15/17 08:36 07/19/17 08:24 PT 12.2 SECONDS (9.7-12.2) 07/12/17 06:23 INR 1.1 07/12/17 06:23 APTT 30 SECONDS (21-34) 07/12/17 06:23
[2017-07-19] MEDS: (Lantus) Insulin Glargine, Recombinant SC SCH (22:06)
--- NOTE | 2017-07-19 22:17 | CP.PCM.PN ---
Subjective - Date & Time of Evaluation Date of Evaluation: 07/19/17 Time of Evaluation: 18:10 - Subjective Subjective: Patient comfortable D/W insurance and pre auth obtained for PCI Objective - Vital Signs/Intake and Output Vital Signs (last 24 hours): Temp Pulse Resp BP Pulse Ox 97.5 F L 65 18 131/75 100 07/19/17 16:00 07/19/17 17:57 07/19/17 16:00 07/19/17 16:00 07/19/17 16:00 Intake and Output: 07/19/17 07/20/17 18:59 06:59 Intake Total 300 Balance 300 - Medications Medications: Current Medications Acetaminophen (Tylenol 650mg/20.3ml Solution Ud) 650 mg PO Q6H PRN PRN Reason: for pain 4-6 Last Admin: 07/11/17 02:35 Dose: 650 mg Aspirin (Ecotrin) 81 mg PO DAILY [facility] Last Admin: 07/19/17 09:25 Dose: 81 mg Clopidogrel Bisulfate (Plavix) 75 mg PO DAILY [facility] Last Admin: 07/19/17 09:25 Dose: 75 mg Famotidine (Pepcid) 20 mg IVP DAILY [facility] Last Admin: 07/19/17 09:25 Dose: 20 mg Insulin Glargine (Lantus) 8 unit SC HS [facility] Last Admin: 07/19/17 22:06 Dose: 8 units Insulin Human Regular (Novolin R) 0 unit SC ACHS [facility] PRN Reason: Protocol Last Admin: 07/19/17 22:06 Dose: Not Given Metoprolol Tartrate (Lopressor) 25 mg PO Q12 [facility] Last Admin: 07/19/17 22:06 Dose: Not Given Vitamin A (Vitamin A & D Oint Ud Foilpak) 1 ea TOP BID [facility] Last Admin: 07/19/17 17:26 Dose: 1 ea - Labs Labs: 07/15/17 08:36 07/19/17 08:24 PT 12.2 SECONDS (9.7-12.2) 07/12/17 06:23 INR 1.1 07/12/17 06:23 APTT 30 SECONDS (21-34) 07/12/17 06:23 - Head Exam Head Exam: ATRAUMATIC, NORMAL INSPECTION - Eye Exam Eye Exam: EOMI, PERRL Pupil Exam: NORMAL ACCOMODATION - ENT Exam ENT Exam: Mucous Membranes Moist, Normal Exam - Neck Exam Neck Exam: Full ROM, Normal Inspection - Respiratory Exam Respiratory Exam: Clear to Ausculation Bilateral, NORMAL BREATHING PATTERN - Cardiovascular Exam Cardiovascular Exam: REGULAR RHYTHM, +S1, +S2 - GI/Abdominal Exam GI & Abdominal Exam: Soft, Normal Bowel Sounds - Extremities Exam Extremities Exam: Full ROM - Back Exam Back Exam: NORMAL INSPECTION - Neurological Exam Neurological Exam: Alert, Awake Assessment and Plan - Assessment and Plan (Free Text) Assessment: 1. CAD Multi vessel disease 2. DM 2 3. systolic CHF 4. HTN 5. CKD For PCI LAD and RCA on EMTALA signed Continue ASA and Plavix
[2017-07-20 07:24] LABS: POTASSIUM 5.1 mmol/L (3.6-5.2)
[2017-07-20 07:28] LABS: CALCIUM 8.5 mg/dl (8.6-10.4)
[2017-07-20] MEDS: Vitamins A & D Oint UD Foilpak TOP SCH ×2 (11:00→17:04)
[2017-07-20] MEDS: (Novolin R) Insulin Human Regular 100 units/ml vial SC SCH ×4 (11:04→21:20)
--- NOTE | 2017-07-20 13:41 | CP.PCM.PN ---
Subjective - Date & Time of Evaluation Date of Evaluation: 07/20/17 Time of Evaluation: 13:40 - Subjective Subjective: [place] [facility] [place] [facility] [place] Objective - Vital Signs/Intake and Output Vital Signs (last 24 hours): Temp Pulse Resp BP Pulse Ox 97.6 F 84 20 133/72 99 07/20/17 09:07 07/20/17 09:07 07/20/17 09:07 07/20/17 11:00 07/20/17 09:07 Intake and Output: 07/20/17 07/20/17 11:59 23:59 Intake Total 240 Balance 240 - Medications Medications: Current Medications Acetaminophen (Tylenol 650mg/20.3ml Solution Ud) 650 mg PO Q6H PRN PRN Reason: for pain 4-6 Last Admin: 07/11/17 02:35 Dose: 650 mg Aspirin (Ecotrin) 81 mg PO DAILY [facility] Last Admin: 07/20/17 11:00 Dose: 81 mg Clopidogrel Bisulfate (Plavix) 75 mg PO DAILY [facility] Last Admin: 07/20/17 11:00 Dose: 75 mg Famotidine (Pepcid) 20 mg IVP DAILY [facility] Last Admin: 07/20/17 11:00 Dose: 20 mg Insulin Glargine (Lantus) 8 unit SC HS [facility] Last Admin: 07/19/17 22:06 Dose: 8 units Insulin Human Regular (Novolin R) 0 unit SC ACHS [facility] PRN Reason: Protocol Last Admin: 07/20/17 13:37 Dose: 4 unit Metoprolol Tartrate (Lopressor) 25 mg PO Q12 [facility] Last Admin: 07/20/17 11:00 Dose: 25 mg Vitamin A (Vitamin A & D Oint Ud Foilpak) 1 ea TOP BID [facility] Last Admin: 07/20/17 11:00 Dose: 1 ea - Labs Labs: 07/15/17 08:36 07/20/17 07:06 PT 12.2 SECONDS (9.7-12.2) 07/12/17 06:23 INR 1.1 07/12/17 06:23 APTT 30 SECONDS (21-34) 07/12/17 06:23
--- NOTE | 2017-07-20 16:05 | CP.PCM.PN ---
Subjective - Date & Time of Evaluation Date of Evaluation: 07/20/17 Time of Evaluation: 16:03 - Subjective Subjective: chronically ill for transfer to [facility] [place] chronic dyspnea Objective - Vital Signs/Intake and Output Vital Signs (last 24 hours): Temp Pulse Resp BP Pulse Ox 98.2 F 83 20 97/60 L 98 07/20/17 15:41 07/20/17 15:41 07/20/17 15:41 07/20/17 15:41 07/20/17 15:41 Intake and Output: 07/20/17 07/20/17 06:59 18:59 Intake Total 540 Balance 540 - Medications Medications: Current Medications Acetaminophen (Tylenol 650mg/20.3ml Solution Ud) 650 mg PO Q6H PRN PRN Reason: for pain 4-6 Last Admin: 07/11/17 02:35 Dose: 650 mg Aspirin (Ecotrin) 81 mg PO DAILY [facility] Last Admin: 07/20/17 11:00 Dose: 81 mg Clopidogrel Bisulfate (Plavix) 75 mg PO DAILY [facility] Last Admin: 07/20/17 11:00 Dose: 75 mg Famotidine (Pepcid) 20 mg IVP DAILY [facility] Last Admin: 07/20/17 11:00 Dose: 20 mg Insulin Glargine (Lantus) 8 unit SC HS [facility] Last Admin: 07/19/17 22:06 Dose: 8 units Insulin Human Regular (Novolin R) 0 unit SC ACHS [facility] PRN Reason: Protocol Last Admin: 07/20/17 13:37 Dose: 4 unit Metoprolol Tartrate (Lopressor) 25 mg PO Q12 [facility] Last Admin: 07/20/17 11:00 Dose: 25 mg Vitamin A (Vitamin A & D Oint Ud Foilpak) 1 ea TOP BID [facility] Last Admin: 07/20/17 11:00 Dose: 1 ea - Labs Labs: 07/15/17 08:36 07/20/17 07:06 PT 12.2 SECONDS (9.7-12.2) 07/12/17 06:23 INR 1.1 07/12/17 06:23 APTT 30 SECONDS (21-34) 07/12/17 06:23 - Constitutional Appears: Chronically Ill - Eye Exam Eye Exam: EOMI - ENT Exam ENT Exam: Mucous Membranes Moist - Neck Exam Neck Exam: Full ROM. absent: Lymphadenopathy - Respiratory Exam Respiratory Exam: Decreased Breath Sounds. absent: Accessory Muscle Use - Cardiovascular Exam Cardiovascular Exam: REGULAR RHYTHM. absent: Rubs - GI/Abdominal Exam GI & Abdominal Exam: Normal Bowel Sounds - Neurological Exam Neurological Exam: Alert, Oriented x3 Assessment and Plan - Assessment and Plan (Free Text) Assessment: ckd, cad for transfer to [facility] [place] for pci for follow up to evaluate contrast nephropathy
[2017-07-20] MEDS: (Lantus) Insulin Glargine, Recombinant SC SCH (22:36)
--- NOTE | 2017-07-20 23:24 | CP.PCM.PN ---
Subjective - Date & Time of Evaluation Date of Evaluation: 07/20/17 Time of Evaluation: 12:05 - Subjective Subjective: Patient seen and evaluated For PCI tomorrow in [facility] Objective - Vital Signs/Intake and Output Vital Signs (last 24 hours): Temp Pulse Resp BP Pulse Ox 98.2 F 73 20 113/67 98 07/20/17 15:41 07/20/17 19:59 07/20/17 15:41 07/20/17 21:42 07/20/17 15:41 Intake and Output: 07/20/17 07/21/17 18:59 06:59 Intake Total 240 300 Balance 240 300 - Medications Medications: Current Medications Acetaminophen (Tylenol 650mg/20.3ml Solution Ud) 650 mg PO Q6H PRN PRN Reason: for pain 4-6 Last Admin: 07/11/17 02:35 Dose: 650 mg Aspirin (Ecotrin) 81 mg PO DAILY [facility] Last Admin: 07/20/17 11:00 Dose: 81 mg Clopidogrel Bisulfate (Plavix) 75 mg PO DAILY [facility] Last Admin: 07/20/17 11:00 Dose: 75 mg Famotidine (Pepcid) 20 mg IVP DAILY [facility] Last Admin: 07/20/17 11:00 Dose: 20 mg Insulin Glargine (Lantus) 8 unit SC HS [facility] Last Admin: 07/20/17 22:36 Dose: Not Given Insulin Human Regular (Novolin R) 0 unit SC ACHS [facility] PRN Reason: Protocol Last Admin: 07/20/17 21:20 Dose: Not Given Metoprolol Tartrate (Lopressor) 25 mg PO Q12 [facility] Last Admin: 07/20/17 21:42 Dose: 25 mg - Labs Labs: 07/15/17 08:36 07/20/17 07:06 PT 12.2 SECONDS (9.7-12.2) 07/12/17 06:23 INR 1.1 07/12/17 06:23 APTT 30 SECONDS (21-34) 07/12/17 06:23
[2017-07-21 03:28] LABS: BASO # 0.1 K/uL (0.0-0.2); BASO % 0.5 % (0.0-2.0); EOS # 1.5 K/uL (0.0-0.7); EOS % 12.5 % (0.0-4.0); HEMATOCRIT 37.1 % (34.0-47.0); LYMPH # 2.8 K/uL (1.0-4.3); LYMPH % 23.7 % (20.0-40.0); MEAN CELL VOLUME 84.7 fL (81.0-99.0); MEAN CORPUSCULAR HEMOGLOBIN 27.2 pg (27.0-31.0); MEAN CORPUSCULAR HGB CONC 32.1 g/dL (33.0-37.0); MEAN PLATELET VOLUME 10.2 fL (7.2-11.7); MONO # 0.9 K/uL (0.0-0.8); MONO % 7.9 % (0.0-10.0); WHITE BLOOD COUNT 11.6 K/uL (4.8-10.8)
[2017-07-21 03:45] LABS: INR 1.1
[2017-07-21 03:46] LABS: BILIRUBIN,TOTAL 0.8 mg/dL (0.2-1.3); CALCIUM 8.9 mg/dl (8.6-10.4); POTASSIUM 5.2 mmol/L (3.6-5.2); TOTAL PROTEIN 6.8 g/dL (6.3-8.3)
[2017-07-21 06:34] VITALS: BP 138/70; PULSE 79; RESP 20; TEMP 97.4; O2SAT 98
[2017-07-21] MEDS: (Novolin R) Insulin Human Regular 100 units/ml vial SC SCH (07:40)
--- NOTE | 2017-07-22 10:23 | PN ---
DATE: LOCATION: 1, bed B. SUBJECTIVE: This is a 77-year-old female, seen early in rounds today for GI followup. The entire chart is reviewed including, but not limited to the most recent lab and radiology study results, current and previous medication list, and current and previous medical events. Case was discussed with the staff at length. The patient still has intermittent periods of dyspnea with a complaint of generalized weakness and malaise with still poor oral intake, was scheduled to be transferred today to [facility] for PCI directed by Dr. Bernabe Diaz. LABORATORY DATA: The most recent lab results showed leukocytosis of 11.6 with normal hemoglobin and hematocrit and normal platelet count with low CO2 content of 21, BUN 28, creatinine 2.1 with blood glucose level 112, still with low albumin 3.4. PHYSICAL EXAMINATION: GENERAL: A 77-year-old female. VITAL SIGNS: Afebrile with a pulse of 84, respiratory rate 20-22, blood pressure 134/72. HEENT: Showed pale dry mucous membrane, nonicteric sclerae. LUNGS: Few scattered crepitation. Decreased air entry at bases. HEART: Positive S1 and S2. ABDOMEN: Soft with slight generalized tenderness. No mass or organomegaly. No rebound tenderness or guarding. RECTAL: Deferred due to the patient's clinical status. EXTREMITIES: With lower extremity mild edematous changes. No clubbing or cyanosis. NEUROLOGIC: No reported new neurological deficits, sensory or motor. IMPRESSION: 1. Re-exacerbation of peptic ulcer disease with recent history of gastrointestinal blood loss, stable. 2. Recent history of anemia secondary to above. 3. Acute renal failure. 4. Acute respiratory insufficiency with hypoxia, gradually improving. 5. Cardiac arrhythmia. 6. Malnutrition with hypoalbuminemia. SUGGESTIONS: 1. Continue current management. 2. The patient to be followed up as outpatient only p.r.n. 3. No aggressive further recommendations to follow. Case discussed at length with admitting medical staff as well as the patient and family. Diana Cazares MD cc: Diana Cazares MD
--- NOTE | 2017-07-24 20:03 | CARDCATH ---
PROCEDURE DATE: 07/12/2017 PROCEDURES: 1. Left heart catheterization. 2. Coronary angiogram. CLINICAL INDICATIONS: 1. Wcr-[id number] myocardial infarction. 2. Diabetes. 3. Ischemic cardiomyopathy with ejection fraction 30%. 4. Hypertension. 5. Hyperlipidemia. 6. Chronic kidney disease. 7. Dementia. REFERRING PHYSICIAN: Harriett Arshad MD PERFORMING PHYSICIAN: Bernabe Diaz MD PROCEDURE: After informed consent from the son, the patient was prepped and draped in the usual sterile fashion. A 2% lidocaine was given in the right groin for local anesthesia. Using micropuncture technique, 6-[place] sheath was introduced into right common femoral artery. Using the usual diagnostic catheters, left heart catheterization and coronary angiogram were performed. The patient tolerated the procedure well. FINDINGS: 1. Left main coronary artery is patent. 2. Proximal LAD is patent. Mid and distal LAD has 90% two discrete lesions. Diagonal branches have diffuse disease. 3. Left circumflex is patent. Obtuse marginal branches are of small caliber and have diffuse disease. 4. Right coronary artery is totally occluded in the proximal region. There are cycr-ri-ncvvj collaterals. 5. LV ejection fraction is approximately 30%. LV is dilated. Global severe hypokinesis. EDP is 22. No gradient across the aortic valve. CONCLUSION: 1. Severe triple-vessel disease. 2. Dementia. 3. Diabetes. 4. Poor LV systolic function. RECOMMENDATIONS: Given the patient has poor general condition and dementia, may not be an ideal candidate for coronary artery bypass surgery. Recommend staged multivessel intervention. Bernabe Diaz MD
--- NOTE | 2017-07-25 13:59 | CP.PCM.DIS ---
Provider - Provider Date of Admission: 06/26/17 03:32 Attending physician: Harriett Arshad MD Time Spent in preparation of Discharge (in minutes): 35 Hospital Course - Lab Results Lab Results: Micro Results 07/13/17 15:28 Naris MRSA Culture - Final MRSA NOT DETECTED 07/03/17 09:30 Blood-Venous Blood Culture - Final NO GROWTH AFTER 5 DAYS 07/03/17 09:30 Blood-Venous Gram Stain - Final 07/03/17 Unknown Trachasp Gram Stain - Final 07/03/17 Unknown Trachasp Sputum Culture - Final NORMAL ORAL STEPHANIE 07/03/17 Unknown Urine,Catheterized Urine Culture - Final Yeast Species 06/26/17 06:41 Naris MRSA Culture (Admit) - Final MRSA NOT DETECTED Most Recent Lab Values WBC 11.6 K/uL (4.8-10.8) H 07/21/17 03:24 RBC 4.38 Mil/uL (3.80-5.20) 07/21/17 03:24 Hgb 11.9 g/dL (11.0-16.0) 07/21/17 03:24 Hct 37.1 % (34.0-47.0) 07/21/17 03:24 MCV 84.7 fL (81.0-99.0) 07/21/17 03:24 MCH 27.2 pg (27.0-31.0) 07/21/17 03:24 MCHC 32.1 g/dL (33.0-37.0) L 07/21/17 03:24 RDW 21.0 % (11.5-14.5) H 07/21/17 03:24 Plt Count 221 K/uL (130-400) D 07/21/17 03:24 MPV 10.2 fL (7.2-11.7) 07/21/17 03:24 Neut % (Auto) 55.4 % (50.0-75.0) 07/21/17 03:24 Lymph % (Auto) 23.7 % (20.0-40.0) 07/21/17 03:24 [place] % (Auto) 7.9 % (0.0-10.0) 07/21/17 03:24 Eos % (Auto) 12.5 % (0.0-4.0) H 07/21/17 03:24 Baso % (Auto) 0.5 % (0.0-2.0) 07/21/17 03:24 Neut # 6.5 K/uL (1.8-7.0) 07/21/17 03:24 Lymph # 2.8 K/uL (1.0-4.3) 07/21/17 03:24 [place] # 0.9 K/uL (0.0-0.8) H 07/21/17 03:24 Eos # 1.5 K/uL (0.0-0.7) H 07/21/17 03:24 Baso # 0.1 K/uL (0.0-0.2) 07/21/17 03:24 Neutrophils % (Manual) 81 % (50-75) H 07/06/17 06:04 Band Neutrophils % 4 % (0-2) H 07/06/17 06:04 Lymphocytes % (Manual) 8 % (20-40) L 07/06/17 06:04 Monocytes % (Manual) 3 % (0-10) 07/06/17 06:04 Eosinophils % (Manual) 4 % (0-4) 07/06/17 06:04 Nucleated RBC % 1 % (0-0) H 07/06/17 06:04 Differential Comment 06/28/17 06:32 Toxic Granulation Present 07/03/17 06:24 Platelet Estimate Normal (NORMAL) 07/06/17 06:04 Large Platelets Present 07/06/17 06:04 Giant Platelets Present 07/03/17 06:24 Polychromasia Slight 07/06/17 06:04 Hypochromasia (manual) Slight 07/06/17 06:04 Poikilocytosis (manual Slight 07/06/17 06:04 Basophilic Stippling Slight 07/04/17 06:25 Anisocytosis (manual) Slight 07/06/17 06:04 Microcytosis (manual) Slight 07/06/17 06:04 Macrocytosis (manual) Slight 07/06/17 06:04 Target Cells Slight 07/06/17 06:04 Tear Drop Cells Slight 07/01/17 06:08 Ovalocytes Slight 07/06/17 06:04 PT 11.9 SECONDS (9.7-12.2) 07/21/17 03:24 INR 1.1 07/21/17 03:24 APTT 34 SECONDS (21-34) 07/21/17 03:24 Puncture Site R rad 07/10/17 05:14 pCO2 48 mm/Hg (35-45) H 07/10/17 05:14 pO2 118 mm/Hg (80-100) H 07/10/17 05:14 HCO3 29.4 mmol/L (21-28) H 07/10/17 05:14 ABG pH 7.42 (7.35-7.45) 07/10/17 05:14 ABG Total CO2 32.6 mmol/L (22-28) H 07/10/17 05:14 ABG O2 Saturation 99.1 % (95-98) H 07/10/17 05:14 ABG Base Excess 5.8 mmol/L (-2.0-3.0) H 07/10/17 05:14 ABG Hemoglobin 10.3 g/dL (11.7-17.4) L 07/10/17 05:14 ABG Carboxyhemoglobin 2.1 % (0.5-1.5) H 07/10/17 05:14 POC ABG HHb (Measured) 0.9 % (0.0-5.0) 07/10/17 05:14 ABG Methemoglobin 1.4 % (0.0-3.0) 07/10/17 05:14 Jasvir Test Pos 07/10/17 05:14 ABG Potassium 5.9 mmol/L (3.6-5.2) H 06/26/17 08:33 VBG pH 7.00 (7.32-7.43) L* 06/26/17 02:24 VBG pCO2 49 mmHg (40-60) 06/26/17 02:24 VBG HCO3 10.1 mmol/L 06/26/17 02:24 VBG Total CO2 13.6 mmol/L (22-28) L 06/26/17 02:24 VBG O2 Sat (Calc) 100.6 % (40-65) H 06/26/17 02:24 VBG Base Excess -19.1 mmol/L (0.0-2.0) L 06/26/17 02:24 VBG Potassium 5.0 mmol/L (3.6-5.2) 06/26/17 02:24 A-a O2 Difference 174.0 mm/Hg 07/09/17 05:27 Respiratory Index 1.3 07/09/17 05:27 Hgb O2 Saturation 95.6 % (95.0-98.0) 07/10/17 05:14 Sodium 141.0 mmol/l (132-148) 06/26/17 08:33 Chloride 114.0 mmol/L (98-107) H 06/26/17 08:33 Glucose 242 mg/dl (65-105) H 06/26/17 08:33 Lactate 1.1 mmol/L (0.7-2.1) 06/26/17 08:33 Liter Flow 3.0 07/10/17 05:14 Vent Mode Prvc 07/09/17 05:27 Mechanical Rate 10 07/09/17 05:27 FiO2 50.0 % 07/09/17 05:27 Tidal Volume 400 07/09/17 05:27 PEEP 5 07/09/17 05:27 Inspiratory BiPAP 15 07/02/17 05:00 Expiratory BiPAP 6 07/02/17 05:00 Crit Value Called To Dr mares 07/03/17 10:25 Crit Value Called By Stuart rivas crt 07/03/17 10:25 Crit Value Read Back Y 07/03/17 10:25 Blood Gas Notified Time 1040 07/03/17 10:25 Sodium 133 mmol/L (132-148) 07/21/17 03:24 Potassium 5.2 mmol/L (3.6-5.2) 07/21/17 03:24 Chloride 100 mmol/L (98-107) 07/21/17 03:24 Carbon Dioxide 21 mmol/L (22-30) L 07/21/17 03:24 Anion Gap 17 (10-20) 07/21/17 03:24 BUN 28 mg/dL (7-17) H 07/21/17 03:24 Creatinine 2.1 MG/DL (0.7-1.2) H 07/21/17 03:24 Est GFR ( Amer) 07/21/17 03:24 Est GFR (Non-Af Amer) 07/21/17 03:24 POC Glucose (mg/dL) 112 mg/dL (65-110) H 07/21/17 06:28 Random Glucose 104 mg/dL (65-105) 07/21/17 03:24 Calcium 8.9 mg/dl (8.6-10.4) 07/21/17 03:24 Phosphorus 3.9 mg/dL (2.5-4.5) 07/15/17 08:36 Magnesium 1.9 mg/dL (1.6-2.3) 07/15/17 08:36 % Saturation 11 (20-55) L 07/08/17 06:19 Ferritin 57.6 ng/mL 07/08/17 06:19 Total Bilirubin 0.8 mg/dL (0.2-1.3) 07/21/17 03:24 AST 33 U/L (14-36) 07/21/17 03:24 ALT 38 U/L (9-52) 07/21/17 03:24 Alkaline Phosphatase 91 U/L (38-126) 07/21/17 03:24 Lactate Dehydrogenase 933 U/L (313-618) H 07/07/17 06:34 Total Creatine Kinase 212 U/L (30-135) H 06/26/17 20:09 CK-MB (Mass) 6.02 ng/mL (0.0-3.38) H 06/26/17 20:09 Troponin I 0.6370 ng/mL (0.00-0.120) H* 06/30/17 06:27 Troponin I, Quant 4.0200 ng/mL (0.00-0.120) H* 06/26/17 20:09 NT-Pro-B Natriuret Pep 3980 pg/mL (0-900) H 06/26/17 02:25 Total Protein 6.8 g/dL (6.3-8.3) 07/21/17 03:24 Albumin 3.4 g/dL (3.5-5.0) L 07/21/17 03:24 Globulin 3.4 gm/dL (2.2-3.9) 07/21/17 03:24 Albumin/Globulin Ratio 1.0 (1.0-2.1) 07/21/17 03:24 Carcinoembryonic Ag 0.5 ng/mL (0-3.0) 06/27/17 06:14 CA 125 Antigen < 5.5 U/mL (0-35) 06/27/17 06:14 Procalcitonin 0.46 NG/ML (0.19-0.49) 07/08/17 17:00 TSH 3rd Generation 1.36 mIU/L (0.46-4.68) 06/30/17 12:10 Arterial Blood Potassium 5.9 mmol/L (3.6-5.2) H 06/26/17 08:33 Venous Blood Potassium 5.0 mmol/L (3.6-5.2) 06/26/17 02:24 Urine Color Yellow (YELLOW) 07/03/17 12:55 Urine Clarity Hazy (Clear) 07/03/17 12:55 Urine pH 5.0 (5.0-8.0) 07/03/17 12:55 Ur Specific [place] 1.019 (1.003-1.030) 07/03/17 12:55 Urine Protein 2+ mg/dL (NEGATIVE) H 07/03/17 12:55 Urine Glucose (UA) 2+ mg/dL (Normal) H 07/03/17 12:55 Urine Ketones Trace mg/dL (NEGATIVE) 07/03/17 12:55 Urine Blood 3+ (NEGATIVE) H 07/03/17 12:55 Urine Nitrate Negative (NEGATIVE) 07/03/17 12:55 Urine Bilirubin Negative (NEGATIVE) 07/03/17 12:55 Urine Urobilinogen Normal mg/dL (0.2-1.0) 07/03/17 12:55 Ur Leukocyte Esterase 2+ Reed/uL (Negative) H 07/03/17 12:55 Urine WBC (Auto) 19 /hpf (0-5) H 07/03/17 12:55 Urine RBC (Auto) 30 /hpf (0-3) H 07/03/17 12:55 Ur Squamous Epith Cells < 1 /hpf (0-5) 07/03/17 12:55 Amorphous Sediment Few /ul (<OCC) H 06/26/17 03:55 Urine Bacteria Occ (<OCC) H 07/03/17 12:55 Granular Casts (Auto) 19 /lpf (0-1) 06/26/17 03:55 Urine Yeast (Budding) Many /hpf (NEGATIVE) H 07/03/17 12:55 Ur Random Creatinine 11.2 mg/dL 07/01/17 12:46 U Random Total Protein 23.0 mg/dL (0.0-12.0) H 07/01/17 12:46 Urine Collection Time 24 HRS 07/05/17 07:23 Urine Total Volume 775 mL 07/05/17 07:23 Ur Protein 24 Hr Calc 689.8 mg/24hr (42-225) H 07/05/17 07:23 Stool Occult Blood Positive (NEGATIVE) H 06/26/17 03:25 Vancomycin Trough < 5.0 ug/mL (5.0-10.0) L 07/08/17 09:10 Hepatitis A IgM Ab Negative (NEGATIVE) 07/03/17 10:02 Hep Bs Antigen Negative (NEGATIVE) 07/03/17 10:02 Hep B Core IgM Ab Negative (NEGATIVE) 07/03/17 10:02 Hepatitis C Antibody Negative (NEGATIVE) 07/03/17 10:02 Blood Type A POSITIVE 07/06/17 07:39 Blood Type Confirm A POSITIVE 06/26/17 03:51 Antibody Screen Negative 07/06/17 07:39 - Hospital Course Hospital Course: 7-year-old female with history of coronary artery disease, hypertension who was admitted overnight to intensive care unit after she was intubated in the field for respiratory distress, chest pain, diaphoresis. Patient now intubated on ventilatory support, getting PRBCs for severe anemia Status post EGD and colonoscopy in February of this month complicated by rectal bleeding AND this patient never had follow-up with GI PT REMAINED INTUBATED FOR PROLONGED TIME 2 TIMES PT WAS EXTUBATED AND THEN REINTUBATED GI W/U SHOWED NO ACTIVE BLEEDING CARD CATH SHOWED CRITICAL 3 V CAD WITH LOW EF PT WAS HIGH RISK FOR CABG DUE TO MORBID CONDITIONS PT WAS TRANSFERRED TO [facility] FOR STAGED ANGIOPLASTY AND STENT Discharge Exam - Head Exam Head Exam: ATRAUMATIC, NORMAL INSPECTION Discharge Plan - Follow Up Plan Condition: CRITICAL Disposition: OTHER INSTITUTION
== END 2017-07-21 09:42 | disposition short-term general hospital (02) | DRG 121 ==
LOC: C.ER 02:08 → C.5T 03:32 → C.9I 03:32 → C.9E 03:32 → C.5S 07-13 16:34
PROVIDERS: ADMIT Internal Medicine Cardiovascular Disease; ATTEND Internal Medicine Cardiovascular Disease
PROC: 5A1945Z Respiratory Ventilation, 24-96 Consecutive Hours (ICD-10-PCS; principal; 2017-06-26)
PROC: 30233N1 Transfusion of Nonautologous Red Blood Cells into Peripheral Vein, Percutaneous Approach (ICD-10-PCS; 2017-06-26)
PROC: 0DB68ZX Excision of Stomach, Via Natural or Artificial Opening Endoscopic, Diagnostic (ICD-10-PCS; 2017-06-28)
PROC: 5A09457 Assistance with Respiratory Ventilation, 24-96 Consecutive Hours, Continuous Positive Airway Pressure (ICD-10-PCS; 2017-06-29)
PROC: 5A1955Z Respiratory Ventilation, Greater than 96 Consecutive Hours (ICD-10-PCS; 2017-07-03)
PROC: 0BH17EZ Insertion of Endotracheal Airway into Trachea, Via Natural or Artificial Opening (ICD-10-PCS; 2017-07-03)
PROC: 4A023N7 Measurement of Cardiac Sampling and Pressure, Left Heart, Percutaneous Approach (ICD-10-PCS; 2017-07-12)
PROC: B2111ZZ Fluoroscopy of Multiple Coronary Arteries using Low Osmolar Contrast (ICD-10-PCS; 2017-07-12)
PROC: B2151ZZ Fluoroscopy of Left Heart using Low Osmolar Contrast (ICD-10-PCS; 2017-07-12)
PROC: 0DBM8ZX Excision of Descending Colon, Via Natural or Artificial Opening Endoscopic, Diagnostic (ICD-10-PCS; 2017-07-15)
DX: I21.4 Non-ST elevation (NSTEMI) myocardial infarction (principal); I50.23 Acute on chronic systolic (congestive) heart failure; J96.01 Acute respiratory failure with hypoxia; J69.0 Pneumonitis due to inhalation of food and vomit; G93.41 Metabolic encephalopathy; N17.9 Acute kidney failure, unspecified; E87.0 Hyperosmolality and hypernatremia; N18.4 Chronic kidney disease, stage 4 (severe); E46 Unspecified protein-calorie malnutrition; E87.2 Acidosis; I13.0 Hypertensive heart and chronic kidney disease with heart failure and stage 1 through stage 4 chronic kidney disease, or unspecified chronic kidney disease; F03.90 Unspecified dementia, unspecified severity, without behavioral disturbance, psychotic disturbance, mood disturbance, and anxiety; E11.22 Type 2 diabetes mellitus with diabetic chronic kidney disease; E11.65 Type 2 diabetes mellitus with hyperglycemia; E86.0 Dehydration; E87.1 Hypo-osmolality and hyponatremia; J84.9 Interstitial pulmonary disease, unspecified; E87.6 Hypokalemia; K92.2 Gastrointestinal hemorrhage, unspecified; N39.0 Urinary tract infection, site not specified; R32 Unspecified urinary incontinence; I25.10 Atherosclerotic heart disease of native coronary artery without angina pectoris; D63.8 Anemia in other chronic diseases classified elsewhere; D68.9 Coagulation defect, unspecified; I48.0 Paroxysmal atrial fibrillation; E77.8 Other disorders of glycoprotein metabolism; E88.09 Other disorders of plasma-protein metabolism, not elsewhere classified; E78.5 Hyperlipidemia, unspecified; I25.82 Chronic total occlusion of coronary artery; E83.39 Other disorders of phosphorus metabolism; E83.51 Hypocalcemia; K29.00 Acute gastritis without bleeding; I25.5 Ischemic cardiomyopathy; I34.0 Nonrheumatic mitral (valve) insufficiency; K63.89 Other specified diseases of intestine; K58.9 Irritable bowel syndrome, unspecified; K64.4 Residual hemorrhoidal skin tags; K44.9 Diaphragmatic hernia without obstruction or gangrene; K64.8 Other hemorrhoids; M19.90 Unspecified osteoarthritis, unspecified site; E78.00 Pure hypercholesterolemia, unspecified; R13.10 Dysphagia, unspecified; Z22.322 Carrier or suspected carrier of Methicillin resistant Staphylococcus aureus; Z79.02 Long term (current) use of antithrombotics/antiplatelets; Z79.82 Long term (current) use of aspirin; Z87.11 Personal history of peptic ulcer disease; Z79.4 Long term (current) use of insulin; I25.2 Old myocardial infarction